=== PATIENT | female | born 1955 | race Caucasian/White ===

== ENCOUNTER 2022-05-20 12:22 | Inpatient (IN) | payer MEDICARE, OTHER, SELFPAY ==
--- NOTE | ~2022-05-20 | XR_ITS ---
EXAMINATION: XR CHEST CLINICAL INFORMATION: Cough COMPARISON: None TECHNIQUE: Frontal view of the chest was obtained. FINDINGS: Subtle opacity in the right midlung and right lower lung. Infiltrates need to be considered here. Left lung is grossly clear. The cardiac silhouette is within normal limits. No failure or effusion. XR/XR chest 1V IMPRESSION: Subtle right mid and lower lobe opacities. Infiltrates need to be considered.
--- NOTE | ~2022-05-20 | CT_ITS ---
EXAMINATION: CT ANGIOGRAM OF THE CHEST WITH AND WITHOUT CONTRAST (CT PULMONARY ANGIOGRAM FOR PE) CLINICAL INFORMATION: Reason for Exam sob with covid , copd COMPARISON: None TECHNIQUE: Prior to contrast administration, noncontrast localization images were obtained. Subsequently, multidetector volumetric imaging was performed from the thoracic inlet to below the diaphragms following the administration of 80 mL Omnipaque 350 intravenous contrast. No contrast reaction reported Sagittal, coronal, and MIP oblique sagittal reformatted images were obtained on the CT workstation, uploaded to PACS, and reviewed. This CT examination was performed using dose optimization techniques as appropriate, variously including the following: *Automated exposure control *Adjustment of mA and/or kV according to patient size (this includes techniques or standardized protocols for targeted exams where dose is matched to indication/reason for exam; i.e. extremities or head) *Use of iterative reconstruction technique Total exam dose-length product 228 mGy-cm FINDINGS: QUALITY OF STUDY/CONTRAST BOLUS: Satisfactory. PULMONARY ARTERIES: Motion degrades this study. There is no evidence for central embolism. Motion at the left base. I cannot exclude PE. Motion lingula. PE cannot be excluded. There is no bowing of the septum. There is no reflux into the liver. The thoracic inlet is within normal limits. The axillary regions are unremarkable. Partially visualized upper abdominal structures are within normal limits. Centrally no bulky mediastinal adenopathy. There is felt to be hilar adenopathy left and right. Imaging the lung garces. Right lung; There is COPD here. Right basilar atelectasis. 4 mm nodule on image 372 may represent a bronchial plug inferiorly. There is bronchial thickening at the bases. Probable bronchial plugging on image 353 of a segmental bronchus. Left lung; Again COPD. Atelectasis in the lingula and left base. Calcified Granuloma on image 238. Anterior. Again there is bronchial thickening. Difficult to evaluate due to motion at the left base. Review of the bone windows does not demonstrate evidence for bony lesion. CT/CT angio chest PE protocol IMPRESSION: Nondiagnostic left lingular and left lower lobe due to motion. I cannot rule out PE here. Otherwise no evidence of PE in the remainder of the lungs. There is significant COPD here. Bilateral basilar atelectasis. No large area of infiltrate. There is bronchial thickening throughout the lungs and several areas of bronchial plugging at the right base. Underlying bronchial lesion of course cannot be excluded. Recommend low-dose noncontrast CT in 3-6 months for continued evaluation VTE: indeterminate
[2022-05-20 12:36] VITALS: BP 119/74; PULSE 86; O2SAT 88
[2022-05-20 12:40] VITALS: BP 147/87; PULSE 93; RESP 18; TEMP 37.2; O2SAT 94; BMI 24.0
--- NOTE | 2022-05-20 12:43 | ECG_ITS ---
Test Reason : SHORTNESS OF BREATH Blood Pressure : / mmHG Vent. Rate : 085 BPM Atrial Rate : 085 BPM P-R Int : 118 ms QRS Dur : 102 ms QT Int : 366 ms P-R-T Axes : 065 072 075 degrees QTc Int : 435 ms Normal sinus rhythm Minimal voltage criteria for LVH, may be normal variant ( Guru product ) Borderline ECG No previous ECGs available Referred By: Generic ED Physician Electronically Signed By:ALLIE NO
[2022-05-20 13:09] LABS: MANUAL DIFF FLAG NO
[2022-05-20 13:12] LABS: Basophils Percent Auto 0.5 % (0-2); Eosinophils Absolute Auto 0.1 X10*3/uL (0.0-0.4); Eosinophils Percent Auto 2.3 % (0-4); Hematocrit 43.5 % (37.0-47.0); Hemoglobin 14.8 g/dl (12.0-16.0); Imm Gran Abs Auto 0.05 X10*3/uL (0.00-0.03); Imm Gran Pct Auto 0.8 % (0.0-0.4); Lymphocytes Percent Auto 16.3 % (20-40); Mean Corpuscular Hemoglobin 31.4 pg (27.0-33.0); Mean Corpuscular Volume 92.2 fL (80.0-98.0); Mean Platelet Volume 9.2 fL (9.4-12.3); Monocytes Absolute Auto 0.5 X10*3/uL (0.1-1.2); Monocytes Percent Auto 8.5 % (2-11); Neutrophils Absolute Auto 4.3 x10*3/uL (2.0-8.3); Neutrophils Percent Auto 71.6 % (45-73); Platelet Count 173 X10*3/uL (160-400); Red Blood Count 4.72 X10*6/uL (4.20-5.50); Red Cell Distribution Width 11.8 % (11.0-16.0)
[2022-05-20 13:26] LABS: COVID-19 Test Positive (Negative)
[2022-05-20 13:43] LABS: Troponin-I High Sensitivity < 3.5 ng/L (<3.5-17.0)
[2022-05-20 13:59] LABS: Alanine Aminotransferase 26 U/L (0-31); Albumin Level 4.3 g/dL (3.5-5.0); Alkaline Phosphatase 112 U/L (39-117); Anion Gap 15 (12-20); Aspartate Amino Transferase 22 U/L (5-31); Bilirubin Total 0.5 mg/dL (0.0-1.0); Blood Urea Nitrogen 12 mg/dL (9-16); Calcium 9.5 mg/dL (8.4-10.2); Carbon Dioxide 34 mmol/L (22-29); Chloride 96 mmol/L (96-108); Creatinine Clr Calc Pharmacy 63.7; Estimated Glomerular Filt Rate > 60; Glucose Random 99 mg/dL (60-115); Potassium 3.9 mmol/L (3.3-5.1); Sodium 141 mmol/L (135-145)
[2022-05-20 14:30] VITALS: BP 142/76; PULSE 92; RESP 18; TEMP 36.6; O2SAT 96
--- NOTE | 2022-05-20 17:21 | ED.SOB ---
HPI - SOB/Dyspnea General Chief Complaint: Dyspnea Stated Complaint: SOB, COVID + Time Seen by Provider: 05/20/22 17:17 Source: patient Mode of arrival: EMS Limitations: no limitations History of Present Illness HPI Narrative: Patient history of COPD not on any home oxygen came to the ER for shortness of breath saturating 88% at room air. Patient went to [facility] and for last 6 days is not feeling good came home started feeling more shortness of breath went to urgent care center with a tested positive for the COVID patient has received all the COVID vaccine including booster patient been coughing a lot mostly dry cough feels very short of breath even taking a flight of stairs no prior cardiac history no chest pain or palpitation Related Data Allergies Allergy/AdvReac Type Severity Reaction Status Date / Time No Known Allergies Allergy Verified 05/20/22 17:33 Review of Systems Review of Systems: Yes all other systems are reviewed and are negative [facility] Social History Social History Advance Directives: No Advance Directives Information Provided: No Physical Exam Vital Signs: Vital Signs: Last Vital Signs Temp 100.1 F 05/20/22 20:51 Pulse 91 05/20/22 20:51 Resp 14 05/20/22 20:51 BP 128/47 L 05/20/22 20:51 Pulse Ox 98 05/20/22 20:51 O2 Del Method 05/20/22 20:51 O2 Flow Rate 3 05/20/22 20:51 BMI result Body Mass Index 24.0 Appearance: Alert. Oriented X3. No acute distress. Eyes: No pallor or icterus ENT: Pharynx normal. Oral Mucosa moist Neck: Normal inspection. Neck supple. CVS: Normal heart rate and rhythm. Pulses normal. Respiratory: No respiratory distress. Equal air entry bilateral, bilateral prolonged expiration Abdomen: Soft and nontender. Bowel sounds are present, no mass palpable, no CVA tenderness Skin: Skin warm and dry. Normal skin color. Normal skin turgor. Extremities: No lower extremity edema. No calf tenderness Neuro: Oriented X 3. No motor deficit. No sensory deficit.No cerebellar signs , cranial nerves II-XII intact MDM - SOB/Dyspnea MDM Narrative Medical decision making narrative: Patient with COPD with COVID never been hypoxic in the past feeling more short of breath for last 2-3 days CTA negative for major emboli showed mucus plugging will admit patient for steroid treatment and supportive treatment Lab Data Attestation: I reviewed the patient's lab results. Result diagrams: 05/20/22 12:53 05/20/22 12:53 Labs: Lab Results 05/20/22 05/20/22 05/20/22 Range/Units 12:53 12:53 12:53 WBC 6.0 (4.8-10.8) X10*3/uL RBC 4.72 (4.20-5.50) X10*6/uL Hgb 14.8 (12.0-16.0) g/dl Hct 43.5 (37.0-47.0) % MCV 92.2 (80.0-98.0) fL MCH 31.4 (27.0-33.0) pg MCHC 34.0 (31.0-35.0) g/dl RDW 11.8 (11.0-16.0) % Plt Count 173 (160-400) X10*3/uL MPV 9.2 L (9.4-12.3) fL Immature Gran % (Auto) 0.8 H (0.0-0.4) % Neut % (Auto) 71.6 (45-73) % Lymph % (Auto) 16.3 L (20-40) % [place] % (Auto) 8.5 (2-11) % Eos % (Auto) 2.3 (0-4) % Baso % (Auto) 0.5 (0-2) % Lymph # (Auto) 1.0 L (1.2-4.9) X10*3/uL [place] # (Auto) 0.5 (0.1-1.2) X10*3/uL Eos # (Auto) 0.1 (0.0-0.4) X10*3/uL Baso # (Auto) 0.0 (0.0-0.2) X10*3/uL Abs Immat Gran (auto) 0.05 H (0.00-0.03) X10*3/uL Absolute Neuts (auto) 4.3 (2.0-8.3) x10*3/uL Absolute Nucleated RBC 0.000 (0.0-0.012) X10*3/uL Nucleated RBC % (auto) 0.0 (0.0-0.2) /100WBC D-Dimer High Sensitivty NG/ML Sodium 141 (135-145) mmol/L Potassium 3.9 (3.3-5.1) mmol/L Chloride 96 (96-108) mmol/L Carbon Dioxide 34 H (22-29) mmol/L Anion Gap 15 (12-20) BUN 12 (9-16) mg/dL Creatinine 0.74 (0.5-1.4) mg/dL Estim Creat Clear Calc 63.7 Estimated GFR > 60 Random Glucose 99 (60-115) mg/dL Calcium 9.5 (8.4-10.2) mg/dL Total Bilirubin 0.5 (0.0-1.0) mg/dL AST 22 (5-31) U/L ALT 26 (0-31) U/L Alkaline Phosphatase 112 (39-117) U/L Troponin I High Sens < 3.5 (<3.5-17.0) ng/L Total Protein 7.0 (6.5-8.0) g/dL Albumin 4.3 (3.5-5.0) g/dL COVID-19 (CELINA) (Negative) COVID-19 Clin Com 05/20/22 05/20/22 Range/Units 12:53 19:58 WBC (4.8-10.8) X10*3/uL RBC (4.20-5.50) X10*6/uL Hgb (12.0-16.0) g/dl Hct (37.0-47.0) % MCV (80.0-98.0) fL MCH (27.0-33.0) pg MCHC (31.0-35.0) g/dl RDW (11.0-16.0) % Plt Count (160-400) X10*3/uL MPV (9.4-12.3) fL Immature Gran % (Auto) (0.0-0.4) % Neut % (Auto) (45-73) % Lymph % (Auto) (20-40) % [place] % (Auto) (2-11) % Eos % (Auto) (0-4) % Baso % (Auto) (0-2) % Lymph # (Auto) (1.2-4.9) X10*3/uL [place] # (Auto) (0.1-1.2) X10*3/uL Eos # (Auto) (0.0-0.4) X10*3/uL Baso # (Auto) (0.0-0.2) X10*3/uL Abs Immat Gran (auto) (0.00-0.03) X10*3/uL Absolute Neuts (auto) (2.0-8.3) x10*3/uL Absolute Nucleated RBC (0.0-0.012) X10*3/uL Nucleated RBC % (auto) (0.0-0.2) /100WBC D-Dimer High Sensitivty 233 NG/ML Sodium (135-145) mmol/L Potassium (3.3-5.1) mmol/L Chloride (96-108) mmol/L Carbon Dioxide (22-29) mmol/L Anion Gap (12-20) BUN (9-16) mg/dL Creatinine (0.5-1.4) mg/dL Estim Creat Clear Calc Estimated GFR Random Glucose (60-115) mg/dL Calcium (8.4-10.2) mg/dL Total Bilirubin (0.0-1.0) mg/dL AST (5-31) U/L ALT (0-31) U/L Alkaline Phosphatase (39-117) U/L Troponin I High Sens (<3.5-17.0) ng/L Total Protein (6.5-8.0) g/dL Albumin (3.5-5.0) g/dL COVID-19 (CELINA) Positive A (Negative) COVID-19 Clin Com See Note ECG Data Attestation: I personally reviewed and interpreted this ECG as follows: Interpretation: Normal sinus rhythm 185 beats per minute LVH normal interval normal axis no acute ischemic changes Discharge Plan Discharge Clinical Impression: Acute hypoxemic respiratory failure due to COVID-19, COPD (chronic obstructive pulmonary disease) Patient Disposition: Admitted As Inpatient
[2022-05-20] MEDS: Albuterol Sulfate 2.5 MG, Albuterol/Iprat 2.5/0.5MG 3 ML 3 ML INHALE (17:55)
[2022-05-20] MEDS: dexAMETHasone sod phosphate 10 MG/ML VIAL IVPUSH (18:54)
[2022-05-20] MEDS: iohexoL 350 MG/ML 100 ML INFUS..BTL IV (19:21)
[2022-05-20 20:35] LABS: D Dimer High Sensitivity 233 NG/ML
[2022-05-20 20:51] VITALS: BP 128/47; PULSE 91; RESP 14; TEMP 37.8; O2SAT 98
--- NOTE | 2022-05-20 20:54 | PM.IMHP ---
History of Present Illness Date of Service: 05/20/22 Chief Complaint: sob 66-year-old female with a past medical history of COPD presented to the hospital today with a chief complaint of shortness of breath. Patient reports that [place] the [place], since last Saturday she has been having shortness of breath associated with cough. Occasional sputum production. Denies any fevers. Mentions that her shortness of breath has been gradually worsening not improving with her home inhalers, and worse for the past 2 days. Hence decided to come to the ER for further evaluation. Denies any chest pain or palpitations. Denies any numbness tingling or focal weakness. Denies any GI symptoms. Reports he has been COVID-19 vaccinated. Review of all other systems is negative except mentioned above ER course: Per ER team patient was noted to be saturating 88% on room air by the EMS; placed on supplemental oxygen. In the ER patient was also saturating 80% on room air; placed on supplemental oxygen with improvement in oxygenation. D-dimer was 230. CT chest was a poor study but no evidence of PE grossly. Noted to have bronchial thickening with plugging. Given nebulizations and steroids. Admitted to the hospital for further management PMFSH Pertinent family history: Reviewed Social History Advance Directives: No Advance Directives Information Provided: No Meds Allergies Allergy/AdvReac Type Severity Reaction Status Date / Time No Known Allergies Allergy Verified 05/20/22 17:33 Active Medications: Current Medications Ceftriaxone Sodium 1 gm/ (Sodium Chloride) 50 mls @ 100 mls/hr IV ONCE ONE Stop: 05/20/22 21:14 Physical Exam Vital Signs and Narrative: Vital Signs: Last Vital Signs Temp 100.1 F 05/20/22 20:51 Pulse 91 05/20/22 20:51 Resp 14 05/20/22 20:51 BP 128/47 L 05/20/22 20:51 Pulse Ox 98 05/20/22 20:51 O2 Del Method 05/20/22 20:51 O2 Flow Rate 3 05/20/22 20:51 BMI result Body Mass Index 24.0 Gen: Appears be in no acute distress. On supplemental oxygen. Speaks in full sentences. HEENT: NCAT, Moist mucosa. Pulmonary: Diminished breath sounds bilaterally CVS: Normal S1-S2 Abdomen: BS+, Soft, Nontender Extremities: Warm well perfused Neuro: Alert and awake. Results Labs CBC and Chem 7: 05/20/22 12:53 05/20/22 12:53 Labs: Laboratory Results - last 24 hr 05/20/22 05/20/22 05/20/22 12:53 12:53 12:53 MCV 92.2 MCH 31.4 MCHC 34.0 RDW 11.8 Plt Count 173 MPV 9.2 L Immature Gran % (Auto) 0.8 H Neut % (Auto) 71.6 Lymph % (Auto) 16.3 L [place] % (Auto) 8.5 Eos % (Auto) 2.3 Baso % (Auto) 0.5 Lymph # (Auto) 1.0 L [place] # (Auto) 0.5 Eos # (Auto) 0.1 Baso # (Auto) 0.0 Abs Immat Gran (auto) 0.05 H Absolute Neuts (auto) 4.3 Absolute Nucleated RBC 0.000 Nucleated RBC % (auto) 0.0 D-Dimer High Sensitivty Anion Gap 15 Estim Creat Clear Calc 63.7 Estimated GFR > 60 Random Glucose 99 Calcium 9.5 Total Bilirubin 0.5 AST 22 ALT 26 Alkaline Phosphatase 112 Total Protein 7.0 Albumin 4.3 COVID-19 (CELINA) Positive A COVID-19 Clin Com See Note 05/20/22 19:58 MCV MCH MCHC RDW Plt Count MPV Immature Gran % (Auto) Neut % (Auto) Lymph % (Auto) [place] % (Auto) Eos % (Auto) Baso % (Auto) Lymph # (Auto) [place] # (Auto) Eos # (Auto) Baso # (Auto) Abs Immat Gran (auto) Absolute Neuts (auto) Absolute Nucleated RBC Nucleated RBC % (auto) D-Dimer High Sensitivty 233 Anion Gap Estim Creat Clear Calc Estimated GFR Random Glucose Calcium Total Bilirubin AST ALT Alkaline Phosphatase Total Protein Albumin COVID-19 (CELINA) COVID-19 Clin Com Imaging Radiologist's Impressions: Impressions Chest X-Ray 05/20/22 13:19 IMPRESSION: Subtle right mid and lower lobe opacities. Infiltrates need to be considered. Chest CTA 05/20/22 19:21 IMPRESSION: Nondiagnostic left lingular and left lower lobe due to motion. I cannot rule out PE here. Otherwise no evidence of PE in the remainder of the lungs. There is significant COPD here. Bilateral basilar atelectasis. No large area of infiltrate. There is bronchial thickening throughout the lungs and several areas of bronchial plugging at the right base. Underlying bronchial lesion of course cannot be excluded. Recommend low-dose noncontrast CT in 3-6 months for continued evaluation VTE: indeterminate Assessment and Plan (1) COPD (chronic obstructive pulmonary disease): Status: Acute Plan 66-year-old female with a past medical history of COPD presented to the hospital today with a chief complaint of shortness of breath. Noted to be in COPD exacerbation. As well as COVID-19 positive. Admitted for further management. COVID-19 positive ; COPD exacerbation; Patient was saturating 88% on room air-placed on supplemental oxygen Will give the patient on Solu-Medrol IV q.i.d. Nebulizations standing and p.r.n. Patient is COVID-[address] chest was a poor study but no clear pulmonary embolism. D-dimer was only 230-age adjusted negative. Also noted to have bronchial thickening versus bronchial lesion with plugging-pulmonology consult for further recommendations. DVT prophylaxis: Lovenox Code status: Full code Quality Stroke Does the patient have a stroke diagnosis?: No VTE Prior VTE?: No VTE Risk Level:: Medical - moderate - high VTE Device Contraindication: Treatment Not Indicated VTE Drug Contraindication: N/A - Med Ordered
[2022-05-20] MEDS: cefTRIAXone sodium 1 GM in 0.9 % Sodium Chloride 50 ML IV (21:07)
[2022-05-20 21:28] LABS: Lactic Acid 0.7 mmol/L (0.5-2.0)
[2022-05-20] MEDS: Enoxaparin Sodium 40 MG/0.4 ML SYRINGE SUBCUT (21:48)
[2022-05-21] VITALS (8 sets, daily range): BP systolic 114–171; BP diastolic 43–86; PULSE 72–90; RESP 16–20; TEMP 36.6–37.1; O2SAT 92–98
[2022-05-21] MEDS: methylPREDNISolone Sod Succ 40 MG/ML VIAL IVPUSH ×4 (01:33→20:44)
[2022-05-21 04:49] LABS: MANUAL DIFF FLAG NO
[2022-05-21 04:50] LABS: Basophils Percent Auto 0.4 % (0-2); Hematocrit 42.8 % (37.0-47.0); Hemoglobin 14.6 g/dl (12.0-16.0); Imm Gran Abs Auto 0.05 X10*3/uL (0.00-0.03); Lymphocytes Absolute Auto 0.5 X10*3/uL (1.2-4.9); Mean Corpuscular HGB Conc 34.1 g/dl (31.0-35.0); Mean Corpuscular Hemoglobin 30.9 pg (27.0-33.0); Mean Corpuscular Volume 90.5 fL (80.0-98.0); Mean Platelet Volume 9.5 fL (9.4-12.3); Monocytes Absolute Auto 0.1 X10*3/uL (0.1-1.2); Neutrophils Absolute Auto 4.3 x10*3/uL (2.0-8.3); Neutrophils Percent Auto 87.6 % (45-73); Platelet Count 177 X10*3/uL (160-400); Red Blood Count 4.73 X10*6/uL (4.20-5.50); Red Cell Distribution Width 11.6 % (11.0-16.0); White Blood Count 4.9 X10*3/uL (4.8-10.8)
[2022-05-21 05:03] LABS: Anion Gap 18 (12-20); Blood Urea Nitrogen 16 mg/dL (9-16); Carbon Dioxide 28 mmol/L (22-29); Chloride 100 mmol/L (96-108); Creatinine Clr Calc Pharmacy 58.1; Estimated Glomerular Filt Rate > 60; Glucose Random 222 mg/dL (60-115); Potassium 3.9 mmol/L (3.3-5.1); Sodium 142 mmol/L (135-145)
--- NOTE | 2022-05-21 09:39 | PM.CNPUL ---
History of Present Illness History of Present Illness Consult date: 05/21/22 Chief complaint: Copd exacerbation Narrative: This is an inpatient pulmonary consultation. The patient is a 66-year-old female with a past medical history of COPD presented to the hospital today with a chief complaint of shortness of breath.? Patient reports that [place], since last Saturday she has been having shortness of breath associated with cough.? Occasional sputum production.? Denies any fevers.? Mentions that her shortness of breath has been gradually worsening not improving with her home inhalers, and worse for the past 2 days.? Hence decided to come to the ER for further evaluation.?+covid19. CTA w/o PE, maxineough, has significant emphysema and bronchitis. bibasilar congestion, likely infiltrates. On on 3L nasal cannula doing a little better. Review of Systems Constitutional: Constitutional: Reports body ache(s), Denies excessive sweating and Reports fatigue Eyes: Eyes: Denies diplopia ENT: Reports change in voice Cardiovascular: Cardiovascular: Reports chest pain and Reports dyspnea Respiratory: Respiratory: Reports chest congestion, Reports cough, Reports dyspnea and Reports wheezing Gastrointestinal: Gastrointestinal: Reports no additional gastrointestinal complaints Musculoskeletal: Musculoskeletal: Reports myalgias Neurologic: Denies confusion Psychiatric: Psychiatric: Denies confusion Endocrine: Endocrine: Denies excessive sweating and Reports fatigue Hematologic/Lymphatic: Hematologic/Lymphatic: Denies easy bleeding, Denies easy bruising and Denies lymphadenopathy Allergic/Immunologic: Allergic/Immunologic: Reports wheezing PMFSH Past Medical History Medical History (Updated 05/21/22 @ 09:49 by Fredy Tong MD) Pulmonary nodule Social History Social History Advance Directives: No Advance Directives Information Provided: No Meds Allergies Allergy/AdvReac Type Severity Reaction Status Date / Time No Known Allergies Allergy Verified 05/20/22 17:33 Active Medications: Current Medications Acetaminophen (Acetaminophen 325 Mg Tablet) 650 mg PO Q6H PRN PRN Reason: Pain, Mild (Pain Scale 1-3) Albuterol Sulfate (Albuterol Sulfate 90 Mcg 8 Gm Inhaler) 4 puff INHALE RQ4H WHILE AWAKE ABDIAZIZ Albuterol Sulfate (Albuterol Sulfate 90 Mcg 8 Gm Inhaler) 4 puff INHALE Q3H PRN PRN Reason: Shortness of Breath/Wheezing Doxycycline Hyclate (Doxycycline Hyclate 100 Mg Tablet) 100 mg PO Q12H [facility] Last Admin: 05/20/22 21:13 Dose: Not Given Enoxaparin Sodium (Enoxaparin Sodium 40 Mg/0.4 Ml Syringe) 40 mg SUBCUT Q24H [facility] Last Admin: 05/20/22 21:48 Dose: 40 mg Melatonin (Melatonin 3 Mg Tablet) 6 mg PO BEDTIME PRN PRN Reason: Insomnia Methylprednisolone Sodium Succinate (Methylprednisolone Sod Succ 40 Mg/Ml Vial) 40 mg IVPUSH Q6H [facility] Last Admin: 05/21/22 01:33 Dose: 40 mg Non-Formulary Medication (Amlodipine) 5 mg PO DAILY [facility] Non-Formulary Medication (Flovent) 220 mcg INHALE QID [facility] Senna (Sennosides 8.6 Mg Tablet) 17.2 mg PO BEDTIME PRN PRN Reason: Constipation Sodium Chloride (0.9 % Sodium Chloride Flush 3 Ml Syringe) 3 ml IVFLUSH QSHIFT [facility] Last Admin: 05/20/22 23:28 Dose: Not Given Home Medications Medication Instructions Recorded Confirmed Last Taken Type Flovent 220 mcg inhalation QID 05/21/22 05/21/22 Unknown History [place]-Chlor 12.5 mg PO 05/21/22 Unknown History Spiriva with HandiHaler 2.5 mcg inhalation 05/21/22 Unknown History amlodipine 5 mg PO DAILY 05/21/22 05/21/22 Unknown History morphine 15 mg PO BID 05/21/22 05/21/22 Unknown History oxycodone 10 mg PO QID 05/21/22 05/21/22 Unknown History Physical Exam Vital Signs: Vital Signs: Last Vital Signs Temp 100.1 F 05/20/22 20:51 Pulse 89 05/21/22 06:00 Resp 17 05/21/22 06:00 BP 133/69 05/21/22 06:00 Pulse Ox 97 05/21/22 06:00 O2 Del Method 05/21/22 06:00 O2 Flow Rate 3 05/21/22 06:00 BMI result Body Mass Index 24.0 Const: General: No confusion Orientation/consciousness: No confusion HEENT: Head: Yes normal to inspection Eyes: General: appearance normal, both eyes and all related structures Neck: Neck: Yes supple Chest: Chest palpation & inspection: normal inspection of the chest Resp: Effort & Inspection: able to speak in complete sentences Auscultation: rales, rhonchi, wheezes and diminished lung sounds Cardio: Rate: regular rate Rhythm: regular rhythm Heart sounds: S1 normal heart sound present and S2 normal heart sound present GI: Auscultation: normal bowel sounds Skin: General skin exam: no rashes or lesions noted Neuro: General: No confusion Extrem: General: No cyanosis and No edema Results Laboratory Findings CBC and BMP: 05/21/22 04:24 05/21/22 04:24 Abnormal lab findings: Abnormal Labs 05/20/22 05/20/22 05/20/22 12:53 12:53 12:53 MPV 9.2 L Immature Gran % (Auto) 0.8 H Neut % (Auto) Lymph % (Auto) 16.3 L [place] % (Auto) Lymph # (Auto) 1.0 L Abs Immat Gran (auto) 0.05 H Carbon Dioxide 34 H Random Glucose COVID-19 (CELINA) Positive A 05/21/22 05/21/22 04:24 04:24 MPV Immature Gran % (Auto) 1.0 H Neut % (Auto) 87.6 H Lymph % (Auto) 10.0 L [place] % (Auto) 1.0 L Lymph # (Auto) 0.5 L Abs Immat Gran (auto) 0.05 H Carbon Dioxide Random Glucose 222 H COVID-19 (CELINA) Assessment and Plan (1) Acute respiratory failure: Status: Acute (2) COPD (chronic obstructive pulmonary disease): Qualifiers: COPD type: COPD with acute exacerbation Qualified Code(s): J44.1 - Chronic obstructive pulmonary disease with (acute) exacerbation Status: Acute (3) COVID-19: Status: Acute (4) Bronchopneumonia: Status: Acute (5) Pulmonary nodule: Status: Acute Plan continue oxygen to keep pox>90% continue doxy continue corticosteroids Would be a good candidate for Remdesivir in view of her oxygen needs, evidence of airspace disease Will need a repeat CT chest 6-12 months to f/u pulmonary nodule and other changes nebs QID Procedures Date of Service Date of Service: 05/21/22
[2022-05-21] MEDS: 0.9 % Sodium Chloride Flush 3 ML SYRINGE IVFLUSH ×2 (09:59→20:45)
--- NOTE | 2022-05-21 11:16 | MHC.CM.PN ---
Patient is Covid positive; CM spoke with /HCP/Jessie @ [phone] addressed IMM with him (original to be mailed certified letter to and a copy to be placed on the chart). Patient lives in a house with her and she and he typically walk 8 miles/day at the [employer]. Home no services is the goal and CM has initiated and will follow for dc planning. Per , PCP is Dr. Strong and Patient is fully Covid vaccinated.
[2022-05-21] MEDS: Albuterol Sulfate 90 MCG 8 GM INHALER 4 PUFF INHALE ×3 (11:47→20:35)
--- NOTE | 2022-05-21 13:27 | PC.NURSE ---
Patient noted to desat down into high 80s with exertion and had increased WOB noted. Patient states I feel like my work of breathing is less with the oxygen on. Patietn 92-95% on 1 liter NC. Denies chest pain
--- NOTE | 2022-05-21 13:28 | P.PNIM_ITS ---
Subjective Subjective Date of Service: 05/21/22 Interval History: complaining of shortness of breath and cough denies fever chills no other acute issues since admission patient not on home oxygen, currently on 2 L of oxygen finger oximetry 94%. Review of Systems [employer] no headache no dizziness CVS no chest pain, no palpitation GI no nausea, no vomiting Review of Systems: Yes all other systems are reviewed and are negative Physical Exam Vital Signs: Vital Signs: Last Vital Signs Temp 97.8 F 05/21/22 10:08 Pulse 88 05/21/22 13:04 Resp 16 05/21/22 13:04 BP 131/76 05/21/22 13:04 Pulse Ox 92 05/21/22 13:04 O2 Del Method 05/21/22 13:04 O2 Flow Rate 1 05/21/22 13:04 BMI result Body Mass Index 24.0 Const: Other: General awake alert, no acute distress. Neck no JVD. CVS regular rate rhythm, Respiratory lungs diminished breath sound with bilateral rhonchi, no respiratory distress, Gastrointestinal abdomen soft, nontender, bowel sounds audible, no guarding , no rigidity. Extremities no edema. Neuro nonfocal Skin no rash psych appropriate affect Objective Data Active Medications Acetaminophen (Acetaminophen 325 Mg Tablet) 650 mg PO Q6H PRN PRN Reason: Pain, Mild (Pain Scale 1-3) Albuterol Sulfate (Albuterol Sulfate 90 Mcg 8 Gm Inhaler) 4 puff INHALE RQ4H WHILE AWAKE [facility] Last Admin: 05/21/22 11:47 Dose: 4 puff Documented By: BRADLEY Albuterol Sulfate (Albuterol Sulfate 90 Mcg 8 Gm Inhaler) 4 puff INHALE Q3H PRN PRN Reason: Shortness of Breath/Wheezing Amlodipine Besylate (Amlodipine Besylate 5 Mg Tablet) 5 mg PO DAILY [facility] Doxycycline Hyclate (Doxycycline Hyclate 100 Mg Tablet) 100 mg PO Q12H [facility] Last Admin: 05/21/22 09:59 Dose: 100 mg Documented By: REGGIE Enoxaparin Sodium (Enoxaparin Sodium 40 Mg/0.4 Ml Syringe) 40 mg SUBCUT Q24H [facility] Last Admin: 05/20/22 21:48 Dose: 40 mg Documented By: KACIE Fluticasone Propionate (Fluticasone Propionate 250 Mcg Blst.W.Dev) 220 puff INHALE RQID [facility] Melatonin (Melatonin 3 Mg Tablet) 6 mg PO BEDTIME PRN PRN Reason: Insomnia Methylprednisolone Sodium Succinate (Methylprednisolone Sod Succ 40 Mg/Ml Vial) 40 mg IVPUSH Q6H [facility] Last Admin: 05/21/22 09:59 Dose: 40 mg Documented By: REGGIE Senna (Sennosides 8.6 Mg Tablet) 17.2 mg PO BEDTIME PRN PRN Reason: Constipation Sodium Chloride (0.9 % Sodium Chloride Flush 3 Ml Syringe) 3 ml IVFLUSH QSHIFT [facility] Last Admin: 05/21/22 09:59 Dose: 3 ml Documented By: REGGIE Labs CBC & Chem 7: 05/21/22 04:24 05/21/22 04:24 Labs: Laboratory Results - last 24 hr 05/20/22 05/20/22 05/20/22 12:53 19:58 21:08 MCV MCH MCHC RDW Plt Count MPV Immature Gran % (Auto) Neut % (Auto) Lymph % (Auto) [place] % (Auto) Eos % (Auto) Baso % (Auto) Lymph # (Auto) [place] # (Auto) Eos # (Auto) Baso # (Auto) Abs Immat Gran (auto) Absolute Neuts (auto) Absolute Nucleated RBC Nucleated RBC % (auto) D-Dimer High Sensitivty 233 Anion Gap 15 Estim Creat Clear Calc 63.7 Estimated GFR > 60 Random Glucose 99 Lactic Acid 0.7 Calcium 9.5 Total Bilirubin 0.5 AST 22 ALT 26 Alkaline Phosphatase 112 Total Protein 7.0 Albumin 4.3 05/21/22 05/21/22 04:24 04:24 MCV 90.5 MCH 30.9 MCHC 34.1 RDW 11.6 Plt Count 177 MPV 9.5 Immature Gran % (Auto) 1.0 H Neut % (Auto) 87.6 H Lymph % (Auto) 10.0 L [place] % (Auto) 1.0 L Eos % (Auto) 0.0 Baso % (Auto) 0.4 Lymph # (Auto) 0.5 L [place] # (Auto) 0.1 Eos # (Auto) 0.0 Baso # (Auto) 0.0 Abs Immat Gran (auto) 0.05 H Absolute Neuts (auto) 4.3 Absolute Nucleated RBC 0.000 Nucleated RBC % (auto) 0.0 D-Dimer High Sensitivty Anion Gap 18 Estim Creat Clear Calc 58.1 Estimated GFR > 60 Random Glucose 222 H Lactic Acid Calcium 9.0 Total Bilirubin AST ALT Alkaline Phosphatase Total Protein Albumin Assessment and Plan (1) Pulmonary nodule: Status: Acute (2) Acute respiratory failure: Status: Acute (3) Bronchopneumonia: Status: Acute (4) COVID-19: Status: Acute (5) COPD (chronic obstructive pulmonary disease): Status: Acute Plan 66-year-old female with a past medical history of COPD presented to the hospital today with a chief complaint of shortness of breath.? Noted to be in COPD exacerbation.? As well as COVID-19 positive.? Admitted for further management.? Acute hypoxic respiratory failure due to COVID-19 infection, bronchopneumonia and acute COPD exacerbation; presented with finger oximetry of 88% on room air- currently on 2 L of oxygen finger oximetry 94% persistent shortness of breath and cough will continue IV Solu Medrol, doxycycline and updraft treatments scheduled and as needed, and add cough medication for COVID-19 vaccinated CTA poor study but showed no clear pulmonary embolism, D-dimer 230- likely due to COVID patient seen by pulmonology they agree with oxygen steroids and updraft, and recommend repeat CT chest in 6-12 months for follow-up on pulmonary nodule continue home inhalers Flovent will place on remdesivir, await ID input hypertension continue amlodipine hyperglycemia due to steroids does not have history of diabetes follow blood sugar DVT prophylaxis:? Lovenox Code status:? Full code patient need continued inpatient hospitalization due to hypoxic respiratory failure related to COVID-19 infection and COPD exacerbation Quality Stroke Does the patient have a stroke diagnosis?: No VTE Prior VTE?: No VTE Risk Level:: Medical - moderate - high VTE Device Contraindication: Treatment Not Indicated VTE Drug Contraindication: N/A - Med Ordered
[2022-05-21] MEDS: Remdesivir 200 MG in 0.9 % Sodium Chloride 210 ML 105 MG IV (15:16)
--- NOTE | 2022-05-21 15:19 | PC.NURSE ---
patient medicated per order float nurse
[2022-05-21] MEDS: Enoxaparin Sodium 40 MG/0.4 ML SYRINGE SUBCUT (20:44)
--- NOTE | 2022-05-21 22:50 | P.CNID_ITS ---
History of Present Illness Data of Consult Service Date: 05/21/22 Requesting physician: Alphonso Grey Primary Care Provider: Unknown Physician HPI Reason for consult: COVID She presents with shortness of breath and cough for six days. She was positive for COVID at Urgent Care. She has COPD She was on a cruise. She is hypoxic to 88% on room air. Review of Systems Review of Systems: Yes all other systems are reviewed and are negative PMFSH Past Medical History Medical History Pulmonary nodule Family History Family history: reviewed and not pertinent Social History Social History service: No Current occupational status: retired [employer] Allergies Allergy/AdvReac Type Severity Reaction Status Date / Time No Known Allergies Allergy Verified 05/20/22 17:33 Active Medications: Current Medications Acetaminophen (Acetaminophen 325 Mg Tablet) 650 mg PO Q6H PRN PRN Reason: Pain, Mild (Pain Scale 1-3) Albuterol Sulfate (Albuterol Sulfate 90 Mcg 8 Gm Inhaler) 4 puff INHALE RQ4H WHILE AWAKE [facility] Last Admin: 05/21/22 20:35 Dose: 4 puff Albuterol Sulfate (Albuterol Sulfate 90 Mcg 8 Gm Inhaler) 4 puff INHALE Q3H PRN PRN Reason: Shortness of Breath/Wheezing Amlodipine Besylate (Amlodipine Besylate 5 Mg Tablet) 5 mg PO DAILY [facility] Amlodipine Besylate (Amlodipine Besylate 5 Mg Tablet) 5 mg PO DAILY [facility]; Protocol Doxycycline Hyclate (Doxycycline Hyclate 100 Mg Tablet) 100 mg PO Q12H [facility] Last Admin: 05/21/22 20:44 Dose: 100 mg Enoxaparin Sodium (Enoxaparin Sodium 40 Mg/0.4 Ml Syringe) 40 mg SUBCUT Q24H [facility] Last Admin: 05/21/22 20:44 Dose: 40 mg Fluticasone Propionate (Fluticasone Propionate 250 Mcg Blst.W.Dev) 220 puff INHALE RQID [facility] Last Admin: 05/21/22 20:36 Dose: Not Given Hydrochlorothiazide (Hydrochlorothiazide 12.5 Mg Tablet) 12.5 mg PO DAILY [facility]; Protocol Remdesivir 100 mg/ Sodium (Chloride) 230 mls @ 115 mls/hr IV Q24H [facility] Stop: 05/25/22 15:59 Melatonin (Melatonin 3 Mg Tablet) 6 mg PO BEDTIME PRN PRN Reason: Insomnia Methylprednisolone Sodium Succinate (Methylprednisolone Sod Succ 40 Mg/Ml Vial) 40 mg IVPUSH Q6H [facility] Last Admin: 05/21/22 20:44 Dose: 40 mg Morphine Sulfate (Morphine Sulfate Er 15 Mg Tablet.Er) 15 mg PO Q12H [facility] Oxycodone HCl (Oxycodone Hcl Immed Release 5 Mg Tablet) 10 mg PO QID PRN PRN Reason: Pain, Moderate Senna (Sennosides 8.6 Mg Tablet) 17.2 mg PO BEDTIME PRN PRN Reason: Constipation Sodium Chloride (0.9 % Sodium Chloride Flush 3 Ml Syringe) 3 ml IVFLUSH QSHIFT [facility] Last Admin: 05/21/22 20:45 Dose: 3 ml Tiotropium [place] (Tiotropium [place] 18 Mcg Cap.W.Dev) 1 puff INHALE DAILY [facility] Home Medications Medication Instructions Recorded Confirmed Last Taken Type amlodipine 5 mg tablet 5 mg PO DAILY 05/21/22 05/21/22 Unknown History fluticasone propionate 220 2 puff inhalation BID 05/21/22 05/21/22 Unknown History mcg/actuation HFA aerosol inhaler hydrochlorothiazide 12.5 mg tablet 12.5 mg PO DAILY 05/21/22 05/21/22 Unknown History morphine 15 mg tablet,extended 15 mg PO Q12H 05/21/22 05/21/22 Unknown History release oxycodone 10 mg tablet 10 mg PO QID PRN Pain, Moderate 05/21/22 05/21/22 Unknown History tiotropium bromide 18 mcg capsule 1 cap inhalation DAILY 05/21/22 05/21/22 Unknown History with inhalation device (Spiriva with HandiHaler) Physical Exam Vital Signs: Vital Signs: Last Vital Signs Temp 98.7 F 05/21/22 20:01 Pulse 88 05/21/22 20:01 Resp 18 05/21/22 20:01 BP 171/86 H 05/21/22 20:01 Pulse Ox 93 05/21/22 20:01 O2 Del Method 05/21/22 20:01 O2 Flow Rate 2 05/21/22 20:01 BMI result Body Mass Index 24.0 Const: General: cooperative HEENT: Head: Yes normal to inspection Face and sinus: Yes normal facial exam Mouth: Normal oral and palatal mucosa present Teeth and gingiva: dentition normal Eyes: General: appearance normal, both eyes and all related structures Pupils: Equal, round and reactive pupils present Resp: Effort & Inspection: normal respiratory effort Cardio: Rate: regular rate Rhythm: regular rhythm GI: Palpation (GI): nontender : General: Yes no CVA tenderness Back/Spine/Pelvis: Back: no CVA tenderness Skin: General skin exam: no rashes or lesions noted Neuro: General: moves all extremities Cranial nerves: Yes Equal, round and reactive pupils present Extrem: General: Yes normal to inspection Psych: Appearance: grossly normal Results Labs CBC & Chem 7: 05/21/22 04:24 05/21/22 04:24 Labs: Short CBC 05/21/22 Range/Units 04:24 WBC 4.9 (4.8-10.8) X10*3/uL Hgb 14.6 (12.0-16.0) g/dl Hct 42.8 (37.0-47.0) % Plt Count 177 (160-400) X10*3/uL BMP 05/21/22 04:24 Sodium 142 Potassium 3.9 Chloride 100 Carbon Dioxide 28 BUN 16 Creatinine 0.81 Calcium 9.0 Assessment and Plan (1) COVID-19: Status: Acute She has had COVID 6 days or more. She has tested positive previously within last week reportedly at Urgent Care. Remdesivir data is good for severe disease but patient at end of benefit ( almost a week) She may have bacterial bronchiectasis as well. (2) COPD (chronic obstructive pulmonary disease): Qualifiers: COPD type: COPD with acute exacerbation Qualified Code(s): J44.1 - Chronic obstructive pulmonary disease with (acute) exacerbation Status: Acute (3) Bronchopneumonia: Status: Acute Plan Would continue steroids Continue Doxycycline 100 mg bid for 7 days.
[2022-05-21] MEDS: oxyCODONE HCl Immed Release 5 MG TABLET 10 MG PO (22:54)
[2022-05-21] MEDS: Melatonin 3 MG TABLET 6 MG PO (22:54)
[2022-05-21] MEDS: Morphine Sulfate ER 15 MG TABLET.ER PO (22:54)
[2022-05-22] VITALS (9 sets, daily range): BP systolic 121–156; BP diastolic 61–79; PULSE 62–94; RESP 17–20; TEMP 36.3–37.2; O2SAT 93–97; BMI 24.0
[2022-05-22] MEDS: methylPREDNISolone Sod Succ 40 MG/ML VIAL IVPUSH ×4 (03:53→21:24)
[2022-05-22] MEDS: Albuterol Sulfate 90 MCG 8 GM INHALER 4 PUFF INHALE ×4 (07:39→20:44)
[2022-05-22] MEDS: 0.9 % Sodium Chloride Flush 3 ML SYRINGE IVFLUSH ×3 (09:07→21:25)
[2022-05-22] MEDS: Morphine Sulfate ER 15 MG TABLET.ER PO ×2 (09:08→21:24)
[2022-05-22] MEDS: oxyCODONE HCl Immed Release 5 MG TABLET 10 MG PO ×3 (09:08→21:24)
[2022-05-22] MEDS: hydroCHLOROthiazide 12.5 MG TABLET PO (09:08)
--- NOTE | 2022-05-22 13:53 | P.PNIM_ITS ---
Subjective Subjective Date of Service: 05/22/22 Interval History: feeling better this morning, less shortness of breath, persistent cough, no fevers , no chills, tolerating diet no nausea, no vomiting, no diarrhea no other acute events overnight. Review of Systems [employer] no headache no dizziness CVS no chest pain, no palpitation Review of Systems: Yes all other systems are reviewed and are negative Physical Exam Vital Signs: Vital Signs: Last Vital Signs Temp 97.4 F 05/22/22 11:29 Pulse 85 05/22/22 11:29 Resp 19 05/22/22 11:29 BP 137/64 05/22/22 11:29 Pulse Ox 93 05/22/22 11:29 O2 Del Method 05/22/22 11:29 O2 Flow Rate 2 05/22/22 11:29 BMI result Body Mass Index 24.0 Const: Other: General? awake rebekah rt, no acute distr ess.? Neck? no JVD . CVS? regular rat e rhythm, Respirat ory lungs? diminis hed breath sound w ith bilateral whe praveen, no respirator y distress, Gastro intestinal abdomen soft, nontender, bowel sounds audib le, no guarding , no rigidity. Extre mities no edema. N euro nonfocal Skin no rash psych jana ropriate affect Objective Data Active Medications Acetaminophen (Acetaminophen 325 Mg Tablet) 650 mg PO Q6H PRN PRN Reason: Pain, Mild (Pain Scale 1-3) Albuterol Sulfate (Albuterol Sulfate 90 Mcg 8 Gm Inhaler) 4 puff INHALE RQ4H WHILE AWAKE [facility] Last Admin: 05/22/22 11:07 Dose: 4 puff Documented By: BRADLEY Albuterol Sulfate (Albuterol Sulfate 90 Mcg 8 Gm Inhaler) 4 puff INHALE Q3H PRN PRN Reason: Shortness of Breath/Wheezing Amlodipine Besylate (Amlodipine Besylate 5 Mg Tablet) 5 mg PO DAILY [facility]; Protocol Last Admin: 05/22/22 09:09 Dose: Not Given Documented By: CHUCK Non-Admin Reason: Duplicate Order Doxycycline Hyclate (Doxycycline Hyclate 100 Mg Tablet) 100 mg PO Q12H [facility] Last Admin: 05/22/22 09:08 Dose: 100 mg Documented By: CHUCK Enoxaparin Sodium (Enoxaparin Sodium 40 Mg/0.4 Ml Syringe) 40 mg SUBCUT Q24H [facility] Last Admin: 05/21/22 20:44 Dose: 40 mg Documented By: CHARLY Fluticasone Propionate (Fluticasone Propionate 250 Mcg Blst.W.Dev) 220 puff INHALE RQID [facility] Last Admin: 05/22/22 11:10 Dose: Not Given Documented By: BRADLEY Non-Admin Reason: med bid not qid Hydrochlorothiazide (Hydrochlorothiazide 12.5 Mg Tablet) 12.5 mg PO DAILY [facility]; Protocol Last Admin: 05/22/22 09:08 Dose: 12.5 mg Documented By: CHUCK Remdesivir 100 mg/ Sodium (Chloride) 230 mls @ 115 mls/hr IV Q24H [facility] Stop: 05/25/22 15:59 Melatonin (Melatonin 3 Mg Tablet) 6 mg PO BEDTIME PRN PRN Reason: Insomnia Last Admin: 05/21/22 22:54 Dose: 6 mg Documented By: CHARLY Methylprednisolone Sodium Succinate (Methylprednisolone Sod Succ 40 Mg/Ml Vial) 40 mg IVPUSH Q6H [facility] Last Admin: 05/22/22 09:08 Dose: 40 mg Documented By: CHUCK Morphine Sulfate (Morphine Sulfate Er 15 Mg Tablet.Er) 15 mg PO Q12H [facility] Last Admin: 05/22/22 09:08 Dose: 15 mg Documented By: CHUCK Oxycodone HCl (Oxycodone Hcl Immed Release 5 Mg Tablet) 10 mg PO QID PRN PRN Reason: Pain, Moderate Last Admin: 05/22/22 09:08 Dose: 10 mg Documented By: CHUCK Senna (Sennosides 8.6 Mg Tablet) 17.2 mg PO BEDTIME PRN PRN Reason: Constipation Sodium Chloride (0.9 % Sodium Chloride Flush 3 Ml Syringe) 3 ml IVFLUSH QSHIFT [facility] Last Admin: 05/22/22 09:07 Dose: 3 ml Documented By: CHUCK Tiotropium [place] (Tiotropium [place] 18 Mcg Cap.W.Dev) 1 puff INHALE DAILY [facility] Last Admin: 05/22/22 07:40 Dose: Not Given Documented By: BRADLEY Non-Admin Reason: Med Not Available Labs CBC & Chem 7: 05/21/22 04:24 05/21/22 04:24 Microbiology Microbiology Results: Microbiology 05/20/22 21:08 Blood Culture - Preliminary Blood - Venous No growth after 24 hours. 05/20/22 21:08 Blood Culture - Preliminary Blood - Venous No growth after 24 hours. Assessment and Plan (1) Pulmonary nodule: Status: Acute (2) Acute respiratory failure: Status: Acute (3) Bronchopneumonia: Status: Acute (4) COVID-19: Status: Acute (5) COPD (chronic obstructive pulmonary disease): Status: Acute Plan 66-year-old female with a past medical history of COPD presented to the hospital today with a chief complaint of shortness of breath.? Noted to be in COPD exacerbation.? As well as COVID-19 positive.? Admitted for further management.? Acute hypoxic respiratory failure due to COVID-19 infection, bronchopneumonia and acute COPD exacerbation; presented with finger oximetry of 88% on room air- currently on 2 L of oxygen finger oximetry 93% shortness of breath and cough improving continue IV Solu Medrol, doxycycline and updraft treatments scheduled and as needed, continue cough medication COVID-19 vaccinated CTA poor study but showed no clear pulmonary embolism, D-dimer 230- likely due to COVID patient seen by pulmonology they agree with oxygen steroids and updraft, and recommend repeat CT chest in 6-12 months for follow-up on pulmonary nodule continue home inhalers Flovent seen by ID she agree with antibiotic and steroids , since COVID present for 6 days or more no significant benefit from remdesivir therefore will DC remdesivir hypertension continue amlodipine BP stable hyperglycemia due to steroids does not have history of diabetes follow blood sugar DVT prophylaxis:? Lovenox Code status:? Full code patient need continued inpatient hospitalization due to hypoxic respiratory failure related to COVID-19 infection and COPD exacerbation. Quality Stroke Does the patient have a stroke diagnosis?: No VTE Prior VTE?: No VTE Risk Level:: Medical - moderate - high VTE Device Contraindication: Treatment Not Indicated VTE Drug Contraindication: N/A - Med Ordered
[2022-05-22] MEDS: guaiFENesin DM 100/10/5 ML 5 ML SYRUP 10 ML PO ×2 (14:27→21:24)
[2022-05-22] MEDS: Acetaminophen 325 MG TABLET 650 MG PO (14:34)
[2022-05-22] MEDS: Enoxaparin Sodium 40 MG/0.4 ML SYRINGE SUBCUT (21:24)
[2022-05-22] MEDS: Melatonin 3 MG TABLET 6 MG PO (21:25)
[2022-05-23] VITALS: BP 135/71; PULSE 84; RESP 20; TEMP 36.8; O2SAT 93
[2022-05-23 04:00] VITALS: BP 133/69; PULSE 67; RESP 20; TEMP 37.1; O2SAT 93
[2022-05-23] MEDS: methylPREDNISolone Sod Succ 40 MG/ML VIAL IVPUSH (05:49)
[2022-05-23] MEDS: Albuterol Sulfate 90 MCG 8 GM INHALER 4 PUFF INHALE ×2 (07:36→11:23)
[2022-05-23 07:39] VITALS: PULSE 87; RESP 18; O2SAT 96
[2022-05-23 07:54] VITALS: BP 146/89; PULSE 82; RESP 20; TEMP 35.6; O2SAT 93
[2022-05-23] MEDS: oxyCODONE HCl Immed Release 5 MG TABLET 10 MG PO (08:27)
[2022-05-23] MEDS: hydroCHLOROthiazide 12.5 MG TABLET PO (08:27)
[2022-05-23] MEDS: amLODIPine Besylate 5 MG TABLET PO (08:27)
[2022-05-23] MEDS: Morphine Sulfate ER 15 MG TABLET.ER PO (08:27)
[2022-05-23] MEDS: guaiFENesin DM 100/10/5 ML 5 ML SYRUP 10 ML PO (08:28)
[2022-05-23] MEDS: 0.9 % Sodium Chloride Flush 3 ML SYRINGE IVFLUSH (08:28)
--- NOTE | 2022-05-23 09:49 | MHC.CM.PN ---
Per MD rounds yesterday, Plan to wean oxygen. She is weaned to 1LO2 via [place]. DP home no services. Patient will arrange for transportation.
[2022-05-23] MEDS: predniSONE 20 MG TABLET 40 MG PO (09:53)
[2022-05-23 11:23] VITALS: PULSE 88; RESP 18; O2SAT 97
[2022-05-23 11:47] VITALS: BP 157/77; PULSE 89; RESP 18; TEMP 36.5; O2SAT 91
--- NOTE | 2022-05-23 12:12 | MHC.CM.PN ---
IMMFemale 76 DX COPD exacerbation. Patient is discharged to home today, no services ordered. She has arranged for transportation home.
--- NOTE | 2022-05-23 12:38 | P.DS_ITS ---
DS: Providers Provider Date of Service: 05/23/22 Date of admission: 05/20/22 20:51 Primary care physician: Unknown Physician Consults: 05/20/22 20:51 Consult to Infectious Diseases Routine Consulting Provider: Karen Bone Reason for consultation: covid positive Consult to Pulmonology Routine Consulting Provider: Mary Ellen Posey Reason for consultation: COPD; Bronchial plugging; ?bronchial lesion; ?bronchoscopy; COVID positive DS: Diagnosis Discharge Diagnosis (1) Pulmonary nodule: Status: Acute (2) Acute respiratory failure: Status: Acute (3) Bronchopneumonia: Status: Acute (4) COVID-19: Status: Acute (5) COPD (chronic obstructive pulmonary disease): Status: Acute DS: Summary Hospital Course Hospital Course: Date of Service: 05/20/22 Chief Complaint: sob 66-year-old female with a past medical history of COPD presented to the hospital today with a chief complaint of shortness of breath.? Patient reports that she was in the cruise recently, since last Saturday she has been having shortness of breath associated with cough.? Occasional sputum production.? Denies any fevers.? Mentions that her shortness of breath has been gradually worsening not improving with her home inhalers, and worse for the past 2 days.? Hence decided to come to the ER for further evaluation.? Denies any chest pain or palpitations.? Denies any numbness tingling or focal weakness.? Denies any GI symptoms.? Reports he has been COVID-19 vaccinated.? Review of all other systems is negative except mentioned above ER course: Per ER team patient was noted to be saturating 88% on room air by the EMS; placed on supplemental oxygen.? In the ER patient was also saturating 80% on room air; placed on supplemental oxygen with improvement in oxygenation.? D- dimer was 230.? CT chest was a poor study but no evidence of PE grossly.? Noted to have bronchial thickening with plugging.? Given nebulizations and steroids.? Admitted to the hospital for further management hospital course 66-year-old female with a past medical history of COPD presented to the hospital with a chief complaint of shortness of breath,noted to be in COPD exacerbation,as well as COVID-19 positive.? Admitted for further management.? Acute hypoxic respiratory failure due to COVID-19 infection, bronchopneumonia and acute COPD exacerbation,presented with finger oximetry of 88% on room air- placed on 2 L of oxygen finger oximetry improved to 93% patient treated with IV Solu Medrol, doxycycline and updraft treatments scheduled and as needed, patient responded well to above treatment was evaluated by pulmonology as well as Infectious Disease since patient presented with 6 days of COVID infection id did not recommend? remdesivir, currently patient finger oximetry is 93 94% on room air therefore she is being discharged home on prednisone 20 mg daily for 5 more days as well as doxycycline to finish a total 7 day course of antibiotic patient has been recommended to resume home inhalers she is recommended repeat CT chest in 3-6 months due to multiple pulmonary abnormalities. hypertension continue amlodipine BP stable hyperglycemia due to steroids does not have history of diabetes follow blood sugar Time Spent with Patient Time attestation: Total time spent providing and/or coordinating discharge services: Discharge coordination time: Greater than 30 minutes Quality: Safe Use of Opioids Does Pt have an Active Cancer Diagnosis on the Problem List?: No Quality: Stroke Does the patient have a stroke diagnosis?: No Physical Exam Vital Signs: Vital Signs: Last Vital Signs Temp 97.7 F 05/23/22 11:47 Pulse 89 05/23/22 11:47 Resp 18 05/23/22 11:47 BP 157/77 H 05/23/22 11:47 Pulse Ox 91 L 05/23/22 11:47 O2 Del Method 05/23/22 11:47 O2 Flow Rate 1 05/23/22 07:54 BMI result Body Mass Index 24.0 Const: Other: General? awake alert, no acute distress.? Neck? no JVD. CVS? regular rate rhythm, Respiratory lungs? good air entry no rhonchi, no respiratory distress, few dry basilar crackles with Gastrointestinal abdomen soft, nontender, bowel sounds audible, no guarding , no rigidity. Extremities no edema. Neuro nonfocal Skin no rash psych appropriate affect DS: Data Data Completed and Pending Labs on day of discharge: Preliminary micro results at discharge 05/20/22 21:08 Blood Culture - Preliminary Blood - Venous No growth after 48 hours. 05/20/22 21:08 Blood Culture - Preliminary Blood - Venous No growth after 48 hours. Discharge Plan Discharge Patient Disposition: Home, Self-Care Discharge Diagnosis: acute hypoxic respiratory failure COVID-19 infection bronchopneumonia COPD exacerbation Referrals: Physician,Unknown J [Primary Care Provider] - 1 Week Discharge Medications: New dextromethorphan-guaifenesin 10-100 mg/5 mL Syrup 10 ml PO TID Qty: 237 0RF doxycycline hyclate 100 mg Tablet 100 mg PO Q12H Qty: 8 0RF prednisone 20 mg tablet 20 mg PO DAILY Qty: 5 0RF albuterol sulfate 90 mcg/actuation HFA aerosol inhaler 2 puff inhalation Q6H PRN (Reason: shortness of breath or wheezing) Qty: 8.5 0RF Continued amlodipine 5 mg Tablet 5 mg PO DAILY morphine 15 mg Tablet Extended Release 15 mg PO Q12H fluticasone propionate 220 mcg/actuation Hfa Aerosol Inhaler 2 puff INHALATION BID Spiriva with HandiHaler 18 mcg Capsule, W/Inhalation Device 1 cap INHALATION DAILY Rx Instructions: puncture 1 cap using device; one dose = 2 inhalations hydrochlorothiazide 12.5 mg Tablet 12.5 mg PO DAILY oxycodone 10 mg Tablet 10 mg PO QID PRN (Reason: Pain, Moderate) Discharge Orders: Discharge Order (Routine); Ordered 05/23/22 Ordered By: Alphonso Grey Diet: Advance to usual diet Activity on Discharge: As tolerated Stand Alone Forms: Patient Portal Discharge page Care Plan Goals: COVID-19 infection improved/ for bronchopneumonia take by mouth antibiotic for 4 days, take steroids as directed, repeat CT chest in 3 to 6 months for follow-up on CT chest findings Health Concerns: noted to have elevated blood sugars follow-up with primary care physician Plan of Treatment: outpatient follow-up with primary care physician call for appointment Assessment: as above
--- NOTE | 2022-05-23 14:01 | PC.NURSE ---
Alert and oriented. Medicated per OCT. VSS, afebrile, no acute resp. distress noted. Weaned off o2, sat 92-94% RA. New order to discharge patient home. Went over discharge instructions, medication administrations with patient, verbalized understanding back. Staff transported to the [facility] via w/c, left via car with her .
== END 2022-05-23 13:15 | disposition home or self-care (01) | DRG 177 ==
LOC: HO.ED 17:33 → HO.EDOVER 20:58 → HO.IMC 05-21 16:52
PROVIDERS: Admitting Provider Hospitalist; Emergency Provider Internal Medicine; Visit Provider Hospitalist
DX: U07.1 COVID-19 (principal); J18.0 Bronchopneumonia, unspecified organism; J96.01 Acute respiratory failure with hypoxia; J44.1 Chronic obstructive pulmonary disease with (acute) exacerbation; J98.09 Other diseases of bronchus, not elsewhere classified; I10 Essential (primary) hypertension; R73.9 Hyperglycemia, unspecified; T38.0X5A Adverse effect of glucocorticoids and synthetic analogues, initial encounter; R91.1 Solitary pulmonary nodule; Z79.51 Long term (current) use of inhaled steroids; Z79.52 Long term (current) use of systemic steroids; Z79.899 Other long term (current) drug therapy
CPT/HCPCS: 36415; 71045; 71275; 80048; 80053; 83605; 84484; 85025; 85379; 87040; 87635; 93005; 96374; 99285; J0248; J0696; J1100; J1650; J2920; Q9967

== ENCOUNTER 2023-11-11 09:47 | Inpatient (IN) | payer MEDICARE, OTHER, SELFPAY ==
[2023-11-11] VITALS (10 sets, daily range): BP systolic 113–176; BP diastolic 63–100; PULSE 98–108; RESP 16–24; TEMP 36.6–36.8; O2SAT 92–94; BMI 26.1; BMI 27.2
--- NOTE | ~2023-11-11 | XR_ITS ---
EXAMINATION: XR CHEST CLINICAL INFORMATION: Dyspnea COMPARISON: 05/20/2022 TECHNIQUE: Frontal view of the chest was obtained. FINDINGS: Lungs are chronically hyperexpanded in this patient with emphysematous disease. Bronchial gant appear to be thickened. A few linear opacities of atelectasis or scarring are present in each lung. No consolidation or pleural effusion. Cardiac silhouette is normal in size. The hilar contours are normal. There is atherosclerotic calcification of the aorta. No acute osseous abnormality. XR/XR chest 1V IMPRESSION: * Chronic emphysematous lung disease. * There are a few scattered linear opacities of atelectasis or scarring in each lung. * No radiographic evidence of pneumonia.
--- NOTE | 2023-11-11 09:50 | ED.SOB ---
HPI - SOB/Dyspnea General Chief Complaint: Dyspnea Stated Complaint: SOB Time Seen by Provider: 11/11/23 09:49 Source: patient and old records reviewed Mode of arrival: EMS Limitations: no limitations History of Present Illness HPI Narrative: 68 yo female with PMH of HTN, bronchopneumonia, COPD not on home O2 here with c/o having cough, feeling weak, wheezing increased shortness of breath not responding to home INH. She just returned from a cruise around [facility] on . Her checked the cruise forums and there are a lot of people ill with URI. She is vaccinated against COVID x 4, flu, pneumonia, RSV. She has not had a fever, has no chest pain. Was at PCP office today sats 77% on RA given duoneb enroute and 4L NC up to 95%. MD elicited complaint: shortness of breath and cough Pertinent past history: COPD Onset (ago): day(s) (3) Context: recent travel Timing: constant Severity: moderate Exacerbating factors: exertion and coughing Relieving factors: rest and bronchodilators Known history of: COPD Associated symptoms: cough, wheezing and sputum production Treatment prior to arrival: oxygen and bronchodilator Related Data Home Medications Medication Instructions Recorded Confirmed amlodipine 5 mg tablet 5 mg PO DAILY 05/21/22 05/21/22 fluticasone propionate 220 2 puff inhalation BID 05/21/22 05/21/22 mcg/actuation HFA aerosol inhaler hydrochlorothiazide 12.5 mg tablet 12.5 mg PO DAILY 05/21/22 05/21/22 morphine 15 mg tablet,extended 15 mg PO Q12H 05/21/22 05/21/22 release oxycodone 10 mg tablet 10 mg PO QID PRN Pain, Moderate 05/21/22 05/21/22 tiotropium bromide 18 mcg capsule 1 cap inhalation DAILY 05/21/22 05/21/22 with inhalation device (Spiriva with HandiHaler) Previous Rx's Medication Instructions Recorded albuterol sulfate 90 mcg/actuation 2 puff inhalation Q6H PRN 05/23/22 aerosol inhaler shortness of breath or wheezing #8.5 grams dextromethorphan-guaifenesin 10 10 ml PO TID #237 mL 05/23/22 mg-100 mg/5 mL oral syrup doxycycline hyclate 100 mg tablet 100 mg PO Q12H #8 tabs 05/23/22 prednisone 20 mg tablet 20 mg PO DAILY #5 tabs 05/23/22 Allergies Allergy/AdvReac Type Severity Reaction Status Date / Time No Known Allergies Allergy Verified 11/11/23 10:01 Review of Systems Review of Systems: Constitutional : No Fever, No Chills ENT/Mouth : No Hoarseness, No sore throat, No Rhinorrhea Eyes: No Redness, No Discharge, No Vision Changes Cardiovascular : No Chest Pain, positive SOB, positive Dyspnea on Exertion, No Edema Respiratory : positive Cough, pos Sputum, positive Wheezing, Gastrointestinal : No Nausea, No Vomiting, No Diarrhea, No abdominal Pain Genitourinary : No Dysuria, No Hematuria Musculoskeletal : No joint pain, No Myalgias Skin : No rash Neuro : No Weakness, No Numbness, No Headache Psych : No anxiety, depression All other systems reviewed and are negative [facility] Past Medical History Attestation statement: The following information was validated with the patient. Source: old records reviewed Medical History Pulmonary nodule COPD (chronic obstructive pulmonary disease) Social History Social History (Updated 11/11/23 @ 10:06 by Belinda Juarez DO) Household Members: Spouse Housing: House Do you presently have visiting nurse or other home services: No Patient Tobacco Use Status: Former Tobacco user Smoked in Last 30 Days: No Advance Directives: No Advance Directives Information Provided: No service: No Current occupational status: retired Physical Exam Vital Signs: Vital Signs: Last Vital Signs Pulse 102 H 11/11/23 11:26 Resp 18 11/11/23 11:26 BP 143/78 H 11/11/23 11:26 Pulse Ox 94 11/11/23 11:26 O2 Del Method Aerosol Mask 11/11/23 11:26 BMI result Body Mass Index 26.1 Appearance: Alert. Oriented X3. Mild acute distress. Eyes: Pupils equal, round and reactive to light. ENT: Pharynx normal. Neck: Normal inspection. Neck supple. CVS: Normal heart rate and rhythm. Pulses normal. Respiratory: Mild respiratory distress - tachypnea and retractions. Breath sounds very diminished with diffuse exp wheezes Abdomen: Soft and nontender. Skin: Skin warm and dry. Normal skin color. Normal skin turgor. Extremities: No lower extremity edema. No calf ttp Neuro: Oriented X 3. No motor deficit. No sensory deficit. Course Course Course Narrative: repeat neb ordered Medications Administered Generic Name Dose Route Start Last Admin Trade Name Marie PRN Reason Stop Dose Admin Azithromycin 500 mg/ Sodium 250 mls @ 125 mls/hr 11/11/23 10:07 11/11/23 11:00 Chloride IV 11/11/23 12:06 125 mls/hr ONCE ONE Administration Discontinued Medications Generic Name Dose Route Start Last Admin Trade Name Marie PRN Reason Stop Dose Admin Albuterol Sulfate 2.5 mg/ 0 mg 11/11/23 10:19 11/11/23 10:27 Albuterol/Ipratropium 3 ml INHALE 11/11/23 10:20 5 dose ONCE ONE Administration Levalbuterol HCl 3.75 mg/ 0 mg 11/11/23 11:08 11/11/23 11:12 Ipratropium [place] 0.5 mg INHALE 11/11/23 11:09 7.5 dose ONCE ONE Administration Sodium Chloride 500 mls @ 500 mls/hr 11/11/23 10:00 11/11/23 11:38 Ns IV 11/11/23 10:59 Infused .Q1H ABDIAZIZ Infusion Methylprednisolone Sodium Succinate 60 mg 11/11/23 09:58 11/11/23 10:46 Methylprednisolone Sod Succ 125 Mg/2 Ml Vial IVPUSH 11/11/23 09:59 60 mg ONCE ONE Administration Medical Decision Making Medical Decision Making MDM Narrative: 68 yo female with PMH of HTN, bronchopneumonia, COPD not on home O2 here with c/o URI symptoms and wheezing since return from cruise at this time labs, CXR, viral panel, IV steroids, bronch protocol and given COPD with hypoxia and increased sputum production will start on IV azithromycin. Anticipate admission given new O2 needs. Differential Diagnosis Differential Diagnoses: The differential diagnosis associated with the presentation includes viral syndrome, pneumonia, COPD exacerbation Admission/Observation Consideration of admission/observation: Escalation of care including admission/observation considered admit for hypoxia Consult Healthcare Provider Management of the patient was discussed with: Hospitalist (will admit) Lab Data MDM Lab Attestation statement: I reviewed the patient's lab results. 11/11/23 10:42 11/11/23 10:42 Labs: Lab Results 11/11/23 Range/Units 10:42 WBC 5.8 (4.8-10.8) X10*3/uL RBC 4.91 (4.20-5.50) X10*6/uL Hgb 15.6 (12.0-16.0) g/dl Hct 46.2 (37.0-47.0) % MCV 94.1 (80.0-98.0) fL MCH 31.8 (27.0-33.0) pg MCHC 33.8 (31.0-35.0) g/dl RDW 12.0 (11.0-16.0) % Plt Count 125 L D (160-400) X10*3/uL MPV 9.2 L (9.4-12.3) fL Immature Gran % (Auto) 0.7 H (0.0-0.4) % Neut % (Auto) 77.8 H (45-73) % Lymph % (Auto) 10.7 L (20-40) % [place] % (Auto) 9.6 (2-11) % Eos % (Auto) 0.9 (0-4) % Baso % (Auto) 0.3 (0-2) % Lymph # (Auto) 0.6 L (1.2-4.9) X10*3/uL [place] # (Auto) 0.6 (0.1-1.2) X10*3/uL Eos # (Auto) 0.1 (0.0-0.4) X10*3/uL Baso # (Auto) 0.0 (0.0-0.2) X10*3/uL Abs Immat Gran (auto) 0.04 H (0.00-0.03) X10*3/uL Absolute Neuts (auto) 4.5 (2.0-8.3) x10*3/uL Absolute Nucleated RBC 0.000 (0.0-0.012) X10*3/uL Nucleated RBC % (auto) 0.0 (0.0-0.2) /100WBC Sodium 143 (135-145) mmol/L Potassium 3.9 (3.3-5.1) mmol/L Chloride 101 (96-108) mmol/L Carbon Dioxide 32 H (22-29) mmol/L Anion Gap 14 (12-20) BUN 12 (9-16) mg/dL Creatinine 0.80 (0.5-1.4) mg/dL Estim Creat Clear Calc 63.2 Estimated GFR > 60 Random Glucose 136 H (60-115) mg/dL Calcium 9.5 (8.4-10.2) mg/dL Magnesium 1.8 (1.6-2.6) mg/dL Total Bilirubin 0.5 (0.0-1.0) mg/dL Direct Bilirubin 0.2 (0.0-0.5) mg/dL AST 38 H (5-31) U/L ALT 44 H (0-31) U/L Alkaline Phosphatase 116 (39-117) U/L Troponin I High Sens < 2.7 (<3.5-17.0) ng/L Total Protein 7.5 (6.5-8.0) g/dL Albumin 4.5 (3.5-5.0) g/dL Influenza Type A (PCR) POSITIVE A (Negative) Influenza Type B (PCR) NEGATIVE (Negative) RSV RNA Qual (PCR) NEGATIVE (Negative) SARS-CoV-2 RNA (RT-PCR) NEGATIVE (Negative) Independent Interpretation I performed an independent interpretation of an: EKG and Plain X-Ray (no pneumonia) Interpretation: Rate: 98 Rhythm: NSR [place]: normal Normal P waves. Normal GUMARO. Normal QRS complex. ST T wave : normal no MARCO qTC: 454 prior studies: no acute ischemia The study has been interpreted contemporaneously by me. . Radiology Impression Discussion of test interpretation with radiology: I have reviewed the radiologist's reading. Independent Historian Clinical information obtained from an independent historian. History obtained from or confirmed by: EMS External Record Review External record reviewed: Inpatient record Critical Care Time Critical Care Time Critical Care Time: Yes Total Critical Care Time: 45 Attestation: repeat nebs and IV steroids, treatment of hypoxia I attest to this time spent taking care of the patient Discharge Plan Discharge Clinical Impression: Acute exacerbation of chronic obstructive pulmonary disease, Hypoxia, Influenza A Patient Disposition: Admitted As Inpatient Prescriptions: No Action amlodipine 5 mg Tablet 5 mg PO DAILY morphine 15 mg Tablet Extended Release 15 mg PO Q12H fluticasone propionate 220 mcg/actuation Hfa Aerosol Inhaler 2 puff INHALATION BID Spiriva with HandiHaler 18 mcg Capsule, W/Inhalation Device 1 cap INHALATION DAILY Rx Instructions: puncture 1 cap using device; one dose = 2 inhalations hydrochlorothiazide 12.5 mg Tablet 12.5 mg PO DAILY oxycodone 10 mg Tablet 10 mg PO QID PRN (Reason: Pain, Moderate) dextromethorphan-guaifenesin 10-100 mg/5 mL Syrup 10 ml PO TID Qty: 237 0RF doxycycline hyclate 100 mg Tablet 100 mg PO Q12H Qty: 8 0RF prednisone 20 mg tablet 20 mg PO DAILY Qty: 5 0RF albuterol sulfate 90 mcg/actuation HFA aerosol inhaler 2 puff inhalation Q6H PRN (Reason: shortness of breath or wheezing) Qty: 8.5 0RF
--- NOTE | 2023-11-11 09:58 | ECG_ITS ---
Test Reason : DYSPNEA Blood Pressure : / mmHG Vent. Rate : 098 BPM Atrial Rate : 098 BPM P-R Int : 124 ms QRS Dur : 086 ms QT Int : 356 ms P-R-T Axes : 078 070 081 degrees QTc Int : 454 ms Normal sinus rhythm Normal ECG When compared with ECG of 20-MAY-2022 12:49, No significant change was found Referred By: Belinda Juarez Electronically Signed By:KATE RIVERA MD
[2023-11-11] MEDS: Albuterol Sulfate 2.5 MG, Albuterol/Iprat 2.5/0.5MG 3 ML 3 ML INHALE (10:27)
[2023-11-11] MEDS: 0.9 % Sodium Chloride 500 ML IV (10:44)
[2023-11-11] MEDS: methylPREDNISolone Sod Succ 125 MG/2 ML VIAL 60 MG IVPUSH (10:46)
[2023-11-11 10:49] LABS: MANUAL DIFF FLAG NO
[2023-11-11 10:55] LABS: Basophils Percent Auto 0.3 % (0-2); Eosinophils Absolute Auto 0.1 X10*3/uL (0.0-0.4); Eosinophils Percent Auto 0.9 % (0-4); Hematocrit 46.2 % (37.0-47.0); Hemoglobin 15.6 g/dl (12.0-16.0); Imm Gran Abs Auto 0.04 X10*3/uL (0.00-0.03); Imm Gran Pct Auto 0.7 % (0.0-0.4); Lymphocytes Absolute Auto 0.6 X10*3/uL (1.2-4.9); Lymphocytes Percent Auto 10.7 % (20-40); Mean Corpuscular HGB Conc 33.8 g/dl (31.0-35.0); Mean Corpuscular Hemoglobin 31.8 pg (27.0-33.0); Mean Corpuscular Volume 94.1 fL (80.0-98.0); Mean Platelet Volume 9.2 fL (9.4-12.3); Monocytes Absolute Auto 0.6 X10*3/uL (0.1-1.2); Monocytes Percent Auto 9.6 % (2-11); Neutrophils Absolute Auto 4.5 x10*3/uL (2.0-8.3); Neutrophils Percent Auto 77.8 % (45-73); Platelet Count 125 X10*3/uL (160-400); Red Blood Count 4.91 X10*6/uL (4.20-5.50); White Blood Count 5.8 X10*3/uL (4.8-10.8)
[2023-11-11] MEDS: Azithromycin 500 MG in 0.9 % Sodium Chloride 250 ML 125 MG IV (11:00)
[2023-11-11] MEDS: levalbuterol HCL 3.75 MG, Ipratropium Bromide 0.5 MG INHALE (11:12)
[2023-11-11 11:42] LABS: Influenza A PCR POSITIVE (Negative); Influenza B PCR NEGATIVE (Negative); Resp Syncy Virus RNA Qual PCR NEGATIVE (Negative); SARS COV2 PCR INHOUSE NEGATIVE (Negative)
[2023-11-11 11:43] LABS: Alanine Aminotransferase 44 U/L (0-31); Albumin Level 4.5 g/dL (3.5-5.0); Alkaline Phosphatase 116 U/L (39-117); Anion Gap 14 (12-20); Aspartate Amino Transferase 38 U/L (5-31); Bilirubin Direct 0.2 mg/dL (0.0-0.5); Bilirubin Total 0.5 mg/dL (0.0-1.0); Blood Urea Nitrogen 12 mg/dL (9-16); Calcium 9.5 mg/dL (8.4-10.2); Carbon Dioxide 32 mmol/L (22-29); Chloride 101 mmol/L (96-108); Creatinine Clr Calc Pharmacy 63.2; Estimated Glomerular Filt Rate > 60; Glucose Random 136 mg/dL (60-115); Magnesium 1.8 mg/dL (1.6-2.6); Potassium 3.9 mmol/L (3.3-5.1); Sodium 143 mmol/L (135-145); Total Protein 7.5 g/dL (6.5-8.0); Troponin-I High Sensitivity < 2.7 ng/L (<3.5-17.0)
[2023-11-11 11:46] LABS: Lactic Acid 2.2 mmol/L (0.5-2.0)
[2023-11-11 11:55] LABS: B Type Natriuretic Peptide 35 pg/mL (<100)
[2023-11-11 11:59] LABS: Procalcitonin 0.03 ng/mL
[2023-11-11] MEDS: Oseltamivir Phosphate 75 MG CAPSULE PO ×2 (12:11→20:22)
--- NOTE | 2023-11-11 12:30 | PC.NURSE ---
PT RESTING IN STRETCHER, AWAITING ADMISSION ORDERS. AIRBORN PRECAUTIONS IN PLACE. PT DENIES PAIN AT THIS TIME, RESP EVEN, SLIGHTLY LABOURED, INSP & EXP WHEEZING AND RHONCHI THROUGHOUT, NEB TX STILL RUNNING. PT AMBULATING INDEPENDENTLY, STEADILY TO RESTROOM, THOUGH WHEN TRIALED OFF O2 PT SATTING DOWN TO 79% ON RA, PLACED BACK ON 3L SUPP O2, NOW SATTING 92-93%. HX COPD, NON SMOKER. SINUS TACH ON MONITOR. PT AWARE OF PLAN FOR CARE.
--- NOTE | 2023-11-11 12:39 | P.HPHOSP_ITS ---
History of Present Illness Date of Service: 11/11/23 Chief Complaint: sob 68 year old female with history of chronic low back pain, opioid dependence, htn, copd not on home O2 presented to the ED earlier today for evaluation of dyspnea. Reports has had dyspnea both at rest and with exertion progressively worsening since saturday. Has chronic cough with clear sputum production that has not changed in quality or severity. Was recently [place] a cruise ship and grandson is sick with URI symptoms. No fevers, chills, st, congestion, abd pain, n/v/d, palpitations, lightheadedness, or chest pain. She does endorse polyuria but no dysuria, hematuria, or urgency. On arrival, VS stable. has developed mild tachycardia following albuterol administration. Hypoxia to the 70s with little exertion now on 3L supplemental O2 maintaining oximetry 93%. No leukocytosis. Renal function normal, lytes normal except co2 32. Initial lactic acid 2.2. AST 38/ALT 44. Trop below detectable limits, BNP 35. PCT 0.03. Positive for influenza A, negative rsv, covid 19. CXr shows emphysematous changes and a few scattered linear opacitis/atelectasis. NO evidence of pneumonia. In the ED, given duoneb, 500ml IVNS, tamiflu, zithromax, solumedrol, and levalbuterol. Review of Systems 2 Review of Systems: General: No fevers, malaise, unintentional weight loss HEENT: No blurred vision, diplopia. No sore throat, nasal congestion, rhinorrhea, sinus pain, ear pain Cardiovascular: No chest pain, palpitations, or leg edema Respiratory: +sob, +cough. No wheezing, cough GI: No abdominal pain, nausea, vomiting, diarrhea, constipation, melena, hematochezia : +polyuria. No dysuria, hematuria, decreased urinary output MSK: No myalgia, back pain Neuro: No headaches, weakness, paresthesias Skin: No rashes or lesions [facility] Medical History (Updated 11/11/23 @ 12:49 by GRISELDA Porter) Opioid dependence Chronic low back pain Pulmonary nodule COPD (chronic obstructive pulmonary disease) Social History (Updated 11/11/23 @ 10:06 by Belinda Juarez DO) Household Members: Spouse Housing: House Do you presently have visiting nurse or other home services: No Patient Tobacco Use Status: Former Tobacco user Smoked in Last 30 Days: No Advance Directives: No Advance Directives Information Provided: No service: No Current occupational status: retired Meds Allergies Allergy/AdvReac Type Severity Reaction Status Date / Time No Known Allergies Allergy Verified 11/11/23 10:01 Active Medications: Current Medications Acetaminophen (Acetaminophen 325 Mg Tablet) 650 mg PO Q6H PRN PRN Reason: Pain, Mild (Pain Scale 1-3) Albuterol/Ipratropium (Albuterol/Iprat 2.5/0.5mg 3 Ml Ampul.Neb) 3 ml INHALE RQ4H WHILE AWAKE [facility] Enoxaparin Sodium (Enoxaparin Sodium 40 Mg/0.4 Ml Syringe) 40 mg SUBCUT Q24H ABDIAZIZ Guaifenesin (Guaifenesin 200 Mg/10 Ml 10 Ml Liquid) 10 ml PO Q4H PRN PRN Reason: Cough Azithromycin 500 mg/ Sodium (Chloride) 250 mls @ 125 mls/hr IV Q24H [facility] Methylprednisolone Sodium Succinate (Methylprednisolone Sod Succ 40 Mg/Ml Vial) 40 mg IVPUSH Q12H ABDIAZIZ Ondansetron HCl (Ondansetron Hcl 4 Mg/2 Ml Vial) 4 mg IVPUSH Q8H PRN PRN Reason: Nausea and Vomiting Oseltamivir Phosphate (Oseltamivir Phosphate 75 Mg Capsule) 75 mg PO Q12H [facility] Stop: 11/15/23 21:01 Senna (Sennosides 8.6 Mg Tablet) 17.2 mg PO BEDTIME PRN PRN Reason: Constipation Sodium Chloride (0.9 % Sodium Chloride Flush 3 Ml Syringe) 3 ml IVFLUSH QSHIFT [facility] Home Medications Medication Instructions Recorded Confirmed Last Taken Type hydrochlorothiazide 12.5 mg tablet 12.5 mg PO DAILY 05/21/22 11/11/23 Unknown History morphine 15 mg tablet,extended 15 mg PO BID 05/21/22 11/11/23 Unknown History release oxycodone 10 mg tablet 10 mg PO QID PRN Pain, Moderate 05/21/22 11/11/23 Unknown History albuterol sulfate 90 mcg/actuation 2 puff inhalation Q4H PRN 11/11/23 11/11/23 Unknown History aerosol inhaler shortness of breath or wheezing alendronate 70 mg tablet 70 mg PO MO 11/11/23 11/11/23 Unknown History amlodipine 10 mg tablet 10 mg PO DAILY 11/11/23 11/11/23 Unknown History docusate sodium 100 mg capsule 100 mg PO DAILY 11/11/23 11/11/23 Unknown History fluticasone 500 mcg-salmeterol 50 1 inh inhalation BID 11/11/23 11/11/23 Unknown History mcg/dose blistr powdr for inhalation (Brittaxela Inhub) ibuprofen 800 mg tablet 800 mg PO TID PRN Pain 11/11/23 11/11/23 Unknown History ipratropium 0.5 mg-albuterol 3 mg 3 ml inhalation QID PRN Wheezing 11/11/23 11/11/23 Unknown History (2.5 mg base)/3 mL nebulization soln multivitamin 1 tab PO DAILY 11/11/23 11/11/23 Unknown History naloxone 0.4 mg/mL injection 0.4 mg subcut Q3M PRN overdose 11/11/23 11/11/23 Unknown History solution tiotropium bromide 2.5 2 puff inhalation DAILY 11/11/23 11/11/23 Unknown History mcg/actuation mist for inhalation (Spiriva Respimat) Physical Exam 2 Vital Signs and Narrative: Vital Signs: Last Vital Signs Pulse 107 H 11/11/23 12:10 Resp 16 11/11/23 12:10 BP 134/77 11/11/23 12:10 Pulse Ox 92 11/11/23 12:10 O2 Del Method Nasal Cannula 11/11/23 12:10 O2 Flow Rate 3 11/11/23 12:10 BMI result Body Mass Index 26.1 Constitutional - Awake and Alert, No apparent distress Eyes - PERRLA, EOMI Cardiovascular - S1S2, RRR, No edema Respiratory - Normal lung expansion, Normal respiratory effort, No respiratory distress on 3L supplemental O2, diffuse expiratory wheezing Gastrointestinal - NT / ND; +BS; No rebound or guarding Extremities - no calf tenderness bilaterally, no swelling Musculoskeletal - Normal inspection, normal ROM Skin - Warm/Dry Neurological - Alert & oriented x3 Psychological - Appropriate affect Results Labs 11/11/23 10:42 11/11/23 10:42 Labs: Laboratory Results - last 24 hr 11/11/23 10:42 MCV 94.1 MCH 31.8 MCHC 33.8 RDW 12.0 Plt Count 125 L D MPV 9.2 L Immature Gran % (Auto) 0.7 H Neut % (Auto) 77.8 H Lymph % (Auto) 10.7 L [place] % (Auto) 9.6 Eos % (Auto) 0.9 Baso % (Auto) 0.3 Lymph # (Auto) 0.6 L [place] # (Auto) 0.6 Eos # (Auto) 0.1 Baso # (Auto) 0.0 Abs Immat Gran (auto) 0.04 H Absolute Neuts (auto) 4.5 Absolute Nucleated RBC 0.000 Nucleated RBC % (auto) 0.0 Anion Gap 14 Estim Creat Clear Calc 63.2 Estimated GFR > 60 Random Glucose 136 H Lactic Acid 2.2 H* Calcium 9.5 Magnesium 1.8 Total Bilirubin 0.5 Direct Bilirubin 0.2 AST 38 H ALT 44 H Alkaline Phosphatase 116 Troponin I High Sens < 2.7 B-Natriuretic Peptide 35 Total Protein 7.5 Albumin 4.5 Procalcitonin 0.03 Influenza Type A (PCR) POSITIVE A Influenza Type B (PCR) NEGATIVE RSV RNA Qual (PCR) NEGATIVE SARS-CoV-2 RNA (RT-PCR) NEGATIVE Imaging Radiologist's Impressions: Impressions Chest X-Ray 11/11/23 10:26 IMPRESSION: * Chronic emphysematous lung disease. * There are a few scattered linear opacities of atelectasis or scarring in each lung. * No radiographic evidence of pneumonia. Assessment and Plan (1) Influenza A: Status: Acute (2) Hypoxia: Status: Acute (3) Acute exacerbation of chronic obstructive pulmonary disease: Status: Acute Plan 68 year old female with history of chronic low back pain, opioid dependence, htn, copd not on home O2 admitted for acute hypoxemic respiratory failure due to influenza A and copd exacerbation #Acute hypoxemic respiratory failure due to influenza A and COPD exacerbation -CXR negative for pneumonia -continue supplemental O2 to maintain oximetry 90-92% -IV methylprednisolone 40mg BID -duonebs q4h while awake, albuterol prn -tamiflu (initiated 11/10) -azithromycin 500mg qd for pleiotropic effect (initiated 11/10) -symptomatic management -continue maintenance inhalers -tachycardia due to albuterol, not sepsis, no sirs criteria -follow cultures #Polyuria -UA pending #HTN -bp reasonably controlled -continue hctz, amlodipine #chronic low back pain on chronic opioids -continue ms contin, oxycodone dvt prophylaxis- lovenox full code pt requires inpt stay at least 2 midnights due to acute hypoxemic respiratory failure due to influenza and copd exacerbation requiring supplemental O2, iv steroids, scheduled nebs and closemonitoring of respiratory status. Quality Stroke Does the patient have a stroke diagnosis?: No VTE Prior VTE?: No VTE Risk Level:: Medical - moderate - high VTE Device Contraindication: Treatment Not Indicated VTE Drug Contraindication: N/A - Med Ordered
[2023-11-11 12:48] LABS: Reflex Lactate? Lactic Acid Added
--- NOTE | 2023-11-11 12:55 | PHA.MEDREC ---
Pharmacy Consult ? Medication Reconciliation Pharmacy has completed the medication reconciliation with a list from the patient.
[2023-11-11] MEDS: Enoxaparin Sodium 40 MG/0.4 ML SYRINGE SUBCUT (13:06)
[2023-11-11] MEDS: Ibuprofen 600 MG TABLET PO (13:06)
[2023-11-11] MEDS: oxyCODONE HCl Immed Release 5 MG TABLET 10 MG PO ×3 (13:06→22:12)
[2023-11-11 13:45] LABS: ~Lactic Acid-LAB USE ONLY 1.3 mmol/L (0.5-2.0)
[2023-11-11] MEDS: Albuterol/Iprat 2.5/0.5MG 3 ML AMPUL.NEB INHALE ×2 (15:21→20:30)
[2023-11-11 15:23] LABS: Appearance Urine Clear; Color Urine Yellow; Glucose Urine UA Negative (Negative); Leukocyte Esterase Urine Negative (Negative); Nitrite Urine Negative (Negative); PH 5.5 (5.0-9.0); Specific Gravity - Urine 1.015 (1.005-1.025); Urine Blood Negative (Negative); Urine Ketones Negative (Negative); Urine Protein Negative (Neg-Trace)
[2023-11-11] MEDS: Acetaminophen 325 MG TABLET 650 MG PO (18:12)
[2023-11-11] MEDS: methylPREDNISolone Sod Succ 40 MG/ML VIAL IVPUSH (20:22)
[2023-11-11] MEDS: Morphine Sulfate ER 15 MG TABLET.ER PO (20:22)
[2023-11-11] MEDS: guaiFENesin 200 MG/10 ML 10 ML LIQUID PO (20:22)
[2023-11-11] MEDS: 0.9 % Sodium Chloride Flush 3 ML SYRINGE IVFLUSH (20:23)
[2023-11-12] VITALS (8 sets, daily range): BP systolic 143–165; BP diastolic 69–90; PULSE 92–105; RESP 16–24; TEMP 36.3–36.7; O2SAT 92–99
[2023-11-12] MEDS: Acetaminophen 325 MG TABLET 650 MG PO (03:17)
[2023-11-12] MEDS: guaiFENesin 200 MG/10 ML 10 ML LIQUID PO ×3 (03:17→20:45)
[2023-11-12] MEDS: oxyCODONE HCl Immed Release 5 MG TABLET 10 MG PO ×2 (05:00→15:49)
[2023-11-12 06:48] LABS: MANUAL DIFF FLAG NO
[2023-11-12 07:03] LABS: Basophils Percent Auto 0.2 % (0-2); Hematocrit 42.1 % (37.0-47.0); Hemoglobin 14.5 g/dl (12.0-16.0); Imm Gran Abs Auto 0.05 X10*3/uL (0.00-0.03); Imm Gran Pct Auto 0.9 % (0.0-0.4); Lymphocytes Absolute Auto 0.4 X10*3/uL (1.2-4.9); Lymphocytes Percent Auto 6.8 % (20-40); Mean Corpuscular HGB Conc 34.4 g/dl (31.0-35.0); Mean Corpuscular Hemoglobin 31.7 pg (27.0-33.0); Mean Corpuscular Volume 91.9 fL (80.0-98.0); Mean Platelet Volume 9.9 fL (9.4-12.3); Monocytes Absolute Auto 0.4 X10*3/uL (0.1-1.2); Monocytes Percent Auto 6.6 % (2-11); Neutrophils Absolute Auto 4.9 x10*3/uL (2.0-8.3); Neutrophils Percent Auto 85.5 % (45-73); Platelet Count 129 X10*3/uL (160-400); Red Blood Count 4.58 X10*6/uL (4.20-5.50); Red Cell Distribution Width 12.1 % (11.0-16.0); White Blood Count 5.8 X10*3/uL (4.8-10.8)
[2023-11-12 07:22] LABS: Anion Gap 13 (12-20); Blood Urea Nitrogen 16 mg/dL (9-16); Calcium 9.1 mg/dL (8.4-10.2); Carbon Dioxide 25 mmol/L (22-29); Chloride 105 mmol/L (96-108); Creatinine Clr Calc Pharmacy 73.8; Estimated Glomerular Filt Rate > 60; Glucose Random 154 mg/dL (60-115); Potassium 4.2 mmol/L (3.3-5.1); Sodium 139 mmol/L (135-145)
[2023-11-12] MEDS: Fluticasone/Vilanterol 200/25 BLST.W.DEV 1 PUFF INHALE (07:37)
[2023-11-12] MEDS: Albuterol/Iprat 2.5/0.5MG 3 ML AMPUL.NEB INHALE ×4 (07:37→19:33)
[2023-11-12] MEDS: Tiotropium Bromide 2.5 mcg 1 PUFF/2.5 MCG MIST.INHAL 2 PUFF INHALE (07:37)
[2023-11-12] MEDS: 0.9 % Sodium Chloride Flush 3 ML SYRINGE IVFLUSH ×3 (08:44→20:46)
[2023-11-12] MEDS: Docusate Sodium 100 MG CAPSULE PO (08:44)
[2023-11-12] MEDS: hydroCHLOROthiazide 12.5 MG TABLET PO (08:45)
[2023-11-12] MEDS: Multivitamin TABLET 1 TAB PO (08:45)
[2023-11-12] MEDS: Morphine Sulfate ER 15 MG TABLET.ER PO ×2 (08:45→20:46)
[2023-11-12] MEDS: amLODIPine Besylate 10 MG TABLET PO (08:46)
[2023-11-12] MEDS: methylPREDNISolone Sod Succ 40 MG/ML VIAL IVPUSH ×2 (08:46→20:45)
[2023-11-12] MEDS: Oseltamivir Phosphate 75 MG CAPSULE PO ×2 (08:46→20:45)
--- NOTE | 2023-11-12 11:19 | P.PNIM_ITS ---
Subjective Subjective Date of Service: 11/12/23 Interval History: f/u on acute hypoxic resp failure due to influenza causing copd exacerbation Physical Exam 2 Vital Signs: Vital Signs: Last Vital Signs Temp 97.3 F 11/12/23 07:58 Pulse 93 11/12/23 07:58 Resp 18 11/12/23 07:58 BP 149/69 H 11/12/23 07:58 Pulse Ox 97 11/12/23 07:58 O2 Del Method Nasal Cannula 11/12/23 07:58 O2 Flow Rate 2.0 11/12/23 07:58 BMI result Body Mass Index 27.2 General: AO X 3, no acute distress Resp: wheezing gladys, some wok of breathing CVS: S1,S2,RRR GI: +BS, NT, no distention Skin: No rash Neuro: motor grossly intact Psych: appropriate affect Objective Data Active Medications Acetaminophen (Acetaminophen 325 Mg Tablet) 650 mg PO Q6H PRN PRN Reason: Pain, Mild (Pain Scale 1-3) Last Admin: 11/12/23 03:17 Dose: 650 mg Documented By: SOPHIE Albuterol Sulfate (Albuterol Sulfate 90 Mcg 8 Gm Inhaler) 2 puff INHALE Q4H PRN PRN Reason: shortness of breath or wheezing Albuterol/Ipratropium (Albuterol/Iprat 2.5/0.5mg 3 Ml Ampul.Neb) 3 ml INHALE RQ4H WHILE AWAKE [facility] Last Admin: 11/12/23 11:10 Dose: 3 ml Documented By: MARICRUZ Albuterol/Ipratropium (Albuterol/Iprat 2.5/0.5mg 3 Ml Ampul.Neb) 3 ml INHALE QID PRN PRN Reason: Wheezing Amlodipine Besylate (Amlodipine Besylate 10 Mg Tablet) 10 mg PO DAILY [facility]; Protocol Last Admin: 11/12/23 08:46 Dose: 10 mg Documented By: ANGIE Docusate Sodium (Docusate Sodium 100 Mg Capsule) 100 mg PO DAILY [facility] Last Admin: 11/12/23 08:44 Dose: 100 mg Documented By: ANGIE Enoxaparin Sodium (Enoxaparin Sodium 40 Mg/0.4 Ml Syringe) 40 mg SUBCUT Q24H [facility] Last Admin: 11/11/23 13:06 Dose: 40 mg Documented By: DANIEL Fluticasone/Vilanterol (Fluticasone/Vilanterol 200/25 Blst.W.Dev) 1 puff INHALE RDAILY [facility] Last Admin: 11/12/23 07:37 Dose: 1 puff Documented By: MARICRUZ Guaifenesin (Guaifenesin 200 Mg/10 Ml 10 Ml Liquid) 10 ml PO Q4H PRN PRN Reason: Cough Last Admin: 11/12/23 03:17 Dose: 10 ml Documented By: SOPHIE Hydrochlorothiazide (Hydrochlorothiazide 12.5 Mg Tablet) 12.5 mg PO DAILY [facility]; Protocol Last Admin: 11/12/23 08:45 Dose: 12.5 mg Documented By: ANGIE Azithromycin 500 mg/ Sodium (Chloride) 250 mls @ 125 mls/hr IV Q24H [facility] Methylprednisolone Sodium Succinate (Methylprednisolone Sod Succ 40 Mg/Ml Vial) 40 mg IVPUSH Q12H [facility] Last Admin: 11/12/23 08:46 Dose: 40 mg Documented By: ANGIE Morphine Sulfate (Morphine Sulfate Er 15 Mg Tablet.Er) 15 mg PO BID [facility] Last Admin: 11/12/23 08:45 Dose: 15 mg Documented By: ANGIE Multivitamins/Vitamin C (Multivitamin Tablet) 1 tab PO DAILY [facility] Last Admin: 11/12/23 08:45 Dose: 1 tab Documented By: ANGIE Naloxone HCl (Naloxone Hcl 0.4 Mg/Ml Vial) 0.4 mg SUBCUT Q3M PRN PRN Reason: overdose Ondansetron HCl (Ondansetron Hcl 4 Mg/2 Ml Vial) 4 mg IVPUSH Q8H PRN PRN Reason: Nausea and Vomiting Oseltamivir Phosphate (Oseltamivir Phosphate 75 Mg Capsule) 75 mg PO Q12H [facility] Stop: 11/15/23 21:01 Last Admin: 11/12/23 08:46 Dose: 75 mg Documented By: ANGIE Oxycodone HCl (Oxycodone Hcl Immed Release 5 Mg Tablet) 10 mg PO QID PRN PRN Reason: Pain, Severe (Pain Scale 7-10) Last Admin: 11/12/23 05:00 Dose: 10 mg Documented By: SOPHIE Senna (Sennosides 8.6 Mg Tablet) 17.2 mg PO BEDTIME PRN PRN Reason: Constipation Sodium Chloride (0.9 % Sodium Chloride Flush 3 Ml Syringe) 3 ml IVFLUSH QSHIFT [facility] Last Admin: 11/12/23 08:44 Dose: 3 ml Documented By: ANGIE Tiotropium [place] (Tiotropium [place] 2.5 Mcg 1 Puff/2.5 Mcg Mist.Inhal) 2 puff INHALE DAILY [facility] Last Admin: 11/12/23 07:37 Dose: 2 puff Documented By: MARICRUZ Labs 11/12/23 06:04 11/12/23 06:04 Labs: Laboratory Results - last 24 hr 11/11/23 11/11/23 11/11/23 10:42 13:29 15:14 MCV MCH MCHC RDW Plt Count MPV Immature Gran % (Auto) Neut % (Auto) Lymph % (Auto) [facility] % (Auto) Eos % (Auto) Baso % (Auto) Lymph # (Auto) [facility] # (Auto) Eos # (Auto) Baso # (Auto) Abs Immat Gran (auto) Absolute Neuts (auto) Absolute Nucleated RBC Nucleated RBC % (auto) Anion Gap 14 Estim Creat Clear Calc 63.2 Estimated GFR > 60 Random Glucose 136 H Lactic Acid 2.2 H* Lactic Acid F/U @ 2Hr 1.3 Calcium 9.5 Magnesium 1.8 Total Bilirubin 0.5 Direct Bilirubin 0.2 AST 38 H ALT 44 H Alkaline Phosphatase 116 Troponin I High Sens < 2.7 B-Natriuretic Peptide 35 Total Protein 7.5 Albumin 4.5 Procalcitonin 0.03 Urine Color Yellow Urine Appearance Clear Urine pH 5.5 Ur Specific [place] 1.015 Urine Protein Negative Urine Glucose (UA) Negative Urine Ketones Negative Urine Blood Negative Urine Nitrite Negative Ur Leukocyte Esterase Negative Influenza Type A (PCR) POSITIVE A Influenza Type B (PCR) NEGATIVE RSV RNA Qual (PCR) NEGATIVE SARS-CoV-2 RNA (RT-PCR) NEGATIVE 11/12/23 06:04 MCV 91.9 MCH 31.7 MCHC 34.4 RDW 12.1 Plt Count 129 L MPV 9.9 Immature Gran % (Auto) 0.9 H Neut % (Auto) 85.5 H Lymph % (Auto) 6.[address] [facility] % (Auto) 6.6 Eos % (Auto) 0.0 Baso % (Auto) 0.2 Lymph # (Auto) 0.[address] [facility] # (Auto) 0.4 Eos # (Auto) 0.0 Baso # (Auto) 0.0 Abs Immat Gran (auto) 0.05 H Absolute Neuts (auto) 4.9 Absolute Nucleated RBC 0.000 Nucleated RBC % (auto) 0.0 Anion Gap 13 Estim Creat Clear Calc 73.8 Estimated GFR > 60 Random Glucose 154 H Lactic Acid Lactic Acid F/U @ 2Hr Calcium 9.1 Magnesium Total Bilirubin Direct Bilirubin AST ALT Alkaline Phosphatase Troponin I High Sens B-Natriuretic Peptide Total Protein Albumin Procalcitonin Urine Color Urine Appearance Urine pH Ur Specific [place] Urine Protein Urine Glucose (UA) Urine Ketones Urine Blood Urine Nitrite Ur Leukocyte Esterase Influenza Type A (PCR) Influenza Type B (PCR) RSV RNA Qual (PCR) SARS-CoV-2 RNA (RT-PCR) Assessment and Plan (1) Influenza A: Status: Acute (2) Hypoxia: Status: Acute (3) Acute exacerbation of chronic obstructive pulmonary disease: Status: Acute Plan 68 year old female with history of chronic low back pain, opioid dependence, htn, copd not on home O2 admitted for acute hypoxemic respiratory failure due to influenza A and copd exacerbation #Acute hypoxemic respiratory failure due to influenza A and COPD exacerbation--improving slowly -Tamiflu for influenza x 5 days -Bronchodilators by Neb -IV steroid -Empiric Azithro for pleotropic effect #Polyuria--UA is negative #HTN--reasonable control, continue HCTZ and Norvasc #chronic low back pain on chronic opioids -continue ms contin, oxycodone dvt prophylaxis- lovenox full code need for inpatient: management for acute hypoxic resp failure needing O2 and IV steroid. Quality Stroke Does the patient have a stroke diagnosis?: No VTE Prior VTE?: No VTE Risk Level:: Medical - moderate - high VTE Device Contraindication: Treatment Not Indicated VTE Drug Contraindication: N/A - Med Ordered
[2023-11-12] MEDS: Azithromycin 500 MG in 0.9 % Sodium Chloride 250 ML 125 MG IV (11:37)
--- NOTE | 2023-11-12 11:49 | MHC.CM.PN ---
IMM DELIVERED. PATIENT IS FROM HOME W/ , WHO HELPS W/ ADL'S PRN. DENIES ANY SERVICES OR DME. NO HOME O2. DISCUSSED [facility] REFERRAL, PATIENT DECLINED. 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 CM WILL CONTINUE TO FOLLOW.
[2023-11-12] MEDS: Enoxaparin Sodium 40 MG/0.4 ML SYRINGE SUBCUT (13:31)
[2023-11-13] VITALS (8 sets, daily range): BP systolic 142–158; BP diastolic 79–92; PULSE 88–97; RESP 18; TEMP 36.4–36.7; O2SAT 94–95
[2023-11-13] MEDS: oxyCODONE HCl Immed Release 5 MG TABLET 10 MG PO ×4 (00:20→22:45)
[2023-11-13] MEDS: 0.9 % Sodium Chloride Flush 3 ML SYRINGE IVFLUSH ×4 (00:21→23:41)
[2023-11-13] MEDS: guaiFENesin 200 MG/10 ML 10 ML LIQUID PO ×3 (00:25→21:20)
[2023-11-13] MEDS: Albuterol/Iprat 2.5/0.5MG 3 ML AMPUL.NEB INHALE ×4 (08:17→19:49)
[2023-11-13] MEDS: Tiotropium Bromide 2.5 mcg 1 PUFF/2.5 MCG MIST.INHAL 2 PUFF INHALE (08:17)
[2023-11-13] MEDS: Fluticasone/Vilanterol 200/25 BLST.W.DEV 1 PUFF INHALE (08:17)
[2023-11-13] MEDS: Morphine Sulfate ER 15 MG TABLET.ER PO ×2 (09:04→20:41)
[2023-11-13] MEDS: methylPREDNISolone Sod Succ 40 MG/ML VIAL IVPUSH ×2 (09:04→20:41)
[2023-11-13] MEDS: Docusate Sodium 100 MG CAPSULE PO (09:05)
[2023-11-13] MEDS: Multivitamin TABLET 1 TAB PO (09:05)
[2023-11-13] MEDS: amLODIPine Besylate 10 MG TABLET PO (09:05)
[2023-11-13] MEDS: hydroCHLOROthiazide 12.5 MG TABLET PO (09:05)
[2023-11-13] MEDS: Oseltamivir Phosphate 75 MG CAPSULE PO ×2 (09:05→20:41)
--- NOTE | 2023-11-13 09:40 | HO.PM.IMPN ---
Subjective Subjective Date of Service: 11/13/23 Physical Exam Vital Signs: Vital Signs: Last Vital Signs Temp 98.0 F 11/13/23 08:00 Pulse 96 11/13/23 08:20 Resp 18 11/13/23 08:20 BP 146/79 H 11/13/23 08:00 Pulse Ox 95 11/13/23 08:00 O2 Del Method Nasal Cannula 11/13/23 08:00 O2 Flow Rate 2.0 11/13/23 08:00 BMI result Body Mass Index 27.2 General: AO X 3, no acute distress Resp: wheezing gladys, nl effort CVS: S1,S2,RRR GI: +BS, NT, no distention Skin: No rash Neuro: motor grossly intact Psych: appropriate affect Objective Data Active Medications Acetaminophen (Acetaminophen 325 Mg Tablet) 650 mg PO Q6H PRN PRN Reason: Pain, Mild (Pain Scale 1-3) Last Admin: 11/12/23 03:17 Dose: 650 mg Documented By: SOPHIE Albuterol Sulfate (Albuterol Sulfate 90 Mcg 8 Gm Inhaler) 2 puff INHALE Q4H PRN PRN Reason: shortness of breath or wheezing Albuterol/Ipratropium (Albuterol/Iprat 2.5/0.5mg 3 Ml Ampul.Neb) 3 ml INHALE RQ4H WHILE AWAKE [facility] Last Admin: 11/13/23 08:17 Dose: 3 ml Documented By: ANAIS Albuterol/Ipratropium (Albuterol/Iprat 2.5/0.5mg 3 Ml Ampul.Neb) 3 ml INHALE QID PRN PRN Reason: Wheezing Amlodipine Besylate (Amlodipine Besylate 10 Mg Tablet) 10 mg PO DAILY [facility]; Protocol Last Admin: 11/13/23 09:05 Dose: 10 mg Documented By: ROSMERY Docusate Sodium (Docusate Sodium 100 Mg Capsule) 100 mg PO DAILY [facility] Last Admin: 11/13/23 09:05 Dose: 100 mg Documented By: ROSMERY Enoxaparin Sodium (Enoxaparin Sodium 40 Mg/0.4 Ml Syringe) 40 mg SUBCUT Q24H [facility] Last Admin: 11/12/23 13:31 Dose: 40 mg Documented By: ANGIE Fluticasone/Vilanterol (Fluticasone/Vilanterol 200/25 Blst.W.Dev) 1 puff INHALE RDAILY [facility] Last Admin: 11/13/23 08:17 Dose: 1 puff Documented By: ANAIS Guaifenesin (Guaifenesin 200 Mg/10 Ml 10 Ml Liquid) 10 ml PO Q4H PRN PRN Reason: Cough Last Admin: 11/13/23 00:25 Dose: 10 ml Documented By: NEYMAR Hydrochlorothiazide (Hydrochlorothiazide 12.5 Mg Tablet) 12.5 mg PO DAILY [facility]; Protocol Last Admin: 11/13/23 09:05 Dose: 12.5 mg Documented By: ROSMERY Azithromycin 500 mg/ Sodium (Chloride) 250 mls @ 125 mls/hr IV Q24H [facility] Last Infusion: 11/12/23 13:35 Dose: Infused Documented By: ANGIE Methylprednisolone Sodium Succinate (Methylprednisolone Sod Succ 40 Mg/Ml Vial) 40 mg IVPUSH Q12H [facility] Last Admin: 11/13/23 09:04 Dose: 40 mg Documented By: ROSMERY Morphine Sulfate (Morphine Sulfate Er 15 Mg Tablet.Er) 15 mg PO BID [facility] Last Admin: 11/13/23 09:04 Dose: 15 mg Documented By: ROSMERY Multivitamins/Vitamin C (Multivitamin Tablet) 1 tab PO DAILY [facility] Last Admin: 11/13/23 09:05 Dose: 1 tab Documented By: ROSMERY Naloxone HCl (Naloxone Hcl 0.4 Mg/Ml Vial) 0.4 mg SUBCUT Q3M PRN PRN Reason: overdose Ondansetron HCl (Ondansetron Hcl 4 Mg/2 Ml Vial) 4 mg IVPUSH Q8H PRN PRN Reason: Nausea and Vomiting Oseltamivir Phosphate (Oseltamivir Phosphate 75 Mg Capsule) 75 mg PO Q12H [facility] Stop: 11/15/23 21:01 Last Admin: 11/13/23 09:05 Dose: 75 mg Documented By: ROSMERY Oxycodone HCl (Oxycodone Hcl Immed Release 5 Mg Tablet) 10 mg PO QID PRN PRN Reason: Pain, Severe (Pain Scale 7-10) Last Admin: 11/13/23 09:15 Dose: 10 mg Documented By: ROSMERY Senna (Sennosides 8.6 Mg Tablet) 17.2 mg PO BEDTIME PRN PRN Reason: Constipation Sodium Chloride (0.9 % Sodium Chloride Flush 3 Ml Syringe) 3 ml IVFLUSH QSHIFT [facility] Last Admin: 11/13/23 09:05 Dose: 3 ml Documented By: ROSMERY Tiotropium [place] (Tiotropium [place] 2.5 Mcg 1 Puff/2.5 Mcg Mist.Inhal) 2 puff INHALE DAILY [facility] Last Admin: 11/13/23 08:17 Dose: 2 puff Documented By: ANAIS Labs 11/12/23 06:04 11/12/23 06:04 Microbiology Microbiology Results: Microbiology 11/11/23 10:53 Blood Culture - Preliminary Blood - Venous No growth after 24 hours. 11/11/23 10:42 Blood Culture - Preliminary Blood - Venous No growth after 24 hours. Assessment and Plan (1) Influenza A: Status: Acute (2) Hypoxia: Status: Acute (3) Acute exacerbation of chronic obstructive pulmonary disease: Status: Acute Plan 68 year old female with history of chronic low back pain, opioid dependence, htn, copd not on home O2 admitted for acute hypoxemic respiratory failure due to influenza A and copd exacerbation #Acute hypoxemic respiratory failure due to influenza A and COPD exacerbation--improving slowly, -Tamiflu for influenza x 5 days -Bronchodilators by Neb -IV steroid -Empiric Azithro for pleotropic effect -wean off O2 #Polyuria--UA is negative #HTN--reasonable control, continue HCTZ and Norvasc #chronic low back pain on chronic opioids -continue ms contin, oxycodone dvt prophylaxis- lovenox full code need for inpatient: management for acute hypoxic resp failure needing O2 and IV steroid. discharge later today if wheezing improves and Off O2 Quality Stroke Does the patient have a stroke diagnosis?: No VTE Prior VTE?: No VTE Risk Level:: Medical - moderate - high VTE Device Contraindication: Treatment Not Indicated VTE Drug Contraindication: N/A - Med Ordered
[2023-11-13] MEDS: Azithromycin 500 MG in 0.9 % Sodium Chloride 250 ML 125 MG IV (11:24)
[2023-11-13] MEDS: Enoxaparin Sodium 40 MG/0.4 ML SYRINGE SUBCUT (12:15)
[2023-11-13] MEDS: Acetaminophen 325 MG TABLET 650 MG PO (14:31)
--- NOTE | 2023-11-13 21:19 | PC.NURSE ---
pt requested guafinesin for non productive cough
[2023-11-14] VITALS (12 sets, daily range): BP systolic 146–184; BP diastolic 64–93; PULSE 89–104; RESP 14–22; TEMP 36.1–36.6; O2SAT 84–95
[2023-11-14] MEDS: guaiFENesin 200 MG/10 ML 10 ML LIQUID PO ×4 (03:52→22:10)
[2023-11-14] MEDS: oxyCODONE HCl Immed Release 5 MG TABLET 10 MG PO ×4 (03:52→22:11)
[2023-11-14] MEDS: Acetaminophen 325 MG TABLET 650 MG PO (06:14)
[2023-11-14] MEDS: Tiotropium Bromide 2.5 mcg 1 PUFF/2.5 MCG MIST.INHAL 2 PUFF INHALE (07:36)
[2023-11-14] MEDS: Fluticasone/Vilanterol 200/25 BLST.W.DEV 1 PUFF INHALE (07:36)
[2023-11-14] MEDS: Albuterol/Iprat 2.5/0.5MG 3 ML AMPUL.NEB INHALE ×4 (07:36→19:24)
[2023-11-14] MEDS: Oseltamivir Phosphate 75 MG CAPSULE PO ×2 (09:25→22:11)
[2023-11-14] MEDS: methylPREDNISolone Sod Succ 40 MG/ML VIAL IVPUSH (09:25)
[2023-11-14] MEDS: hydroCHLOROthiazide 25 MG TABLET PO (09:25)
[2023-11-14] MEDS: Morphine Sulfate ER 15 MG TABLET.ER PO ×2 (09:25→22:11)
[2023-11-14] MEDS: Docusate Sodium 100 MG CAPSULE PO (09:25)
[2023-11-14] MEDS: 0.9 % Sodium Chloride Flush 3 ML SYRINGE IVFLUSH ×2 (09:26→16:22)
[2023-11-14] MEDS: amLODIPine Besylate 10 MG TABLET PO (09:26)
--- NOTE | 2023-11-14 10:51 | P.PNIM_ITS ---
Subjective Subjective Date of Service: 11/14/23 Interval History: f/u on acute hypoxic resp failure due to influenza causing copd exacerbation, overall improving, and feels better today Physical Exam 2 Vital Signs: Vital Signs: Last Vital Signs Temp 97.0 F 11/14/23 07:56 Pulse 90 11/14/23 10:02 Resp 22 H 11/14/23 10:02 BP 158/88 H 11/14/23 10:02 Pulse Ox 92 11/14/23 10:02 O2 Del Method Room Air 11/14/23 10:02 O2 Flow Rate 2.0 11/14/23 07:56 BMI result Body Mass Index 27.2 Objective Data Active Medications Acetaminophen (Acetaminophen 325 Mg Tablet) 650 mg PO Q6H PRN PRN Reason: Pain, Mild (Pain Scale 1-3) Last Admin: 11/14/23 06:14 Dose: 650 mg Documented By: SOPHIE Albuterol Sulfate (Albuterol Sulfate 90 Mcg 8 Gm Inhaler) 2 puff INHALE Q4H PRN PRN Reason: shortness of breath or wheezing Albuterol/Ipratropium (Albuterol/Iprat 2.5/0.5mg 3 Ml Ampul.Neb) 3 ml INHALE RQ4H WHILE AWAKE [facility] Last Admin: 11/14/23 07:36 Dose: 3 ml Documented By: ROMA Albuterol/Ipratropium (Albuterol/Iprat 2.5/0.5mg 3 Ml Ampul.Neb) 3 ml INHALE QID PRN PRN Reason: Wheezing Amlodipine Besylate (Amlodipine Besylate 10 Mg Tablet) 10 mg PO DAILY [facility]; Protocol Last Admin: 11/14/23 09:26 Dose: 10 mg Documented By: ROSMERY Docusate Sodium (Docusate Sodium 100 Mg Capsule) 100 mg PO DAILY [facility] Last Admin: 11/14/23 09:25 Dose: 100 mg Documented By: ROSMERY Enoxaparin Sodium (Enoxaparin Sodium 40 Mg/0.4 Ml Syringe) 40 mg SUBCUT Q24H [facility] Last Admin: 11/13/23 12:15 Dose: 40 mg Documented By: KELLY Fluticasone/Vilanterol (Fluticasone/Vilanterol 200/25 Blst.W.Dev) 1 puff INHALE RDAILY [facility] Last Admin: 11/14/23 07:36 Dose: 1 puff Documented By: ROMA Guaifenesin (Guaifenesin 200 Mg/10 Ml 10 Ml Liquid) 10 ml PO Q4H PRN PRN Reason: Cough Last Admin: 11/14/23 09:25 Dose: 10 ml Documented By: ROSMERY Hydrochlorothiazide (Hydrochlorothiazide 25 Mg Tablet) 25 mg PO DAILY [facility]; Protocol Last Admin: 11/14/23 09:25 Dose: 25 mg Documented By: ROSMERY Azithromycin 500 mg/ Sodium (Chloride) 250 mls @ 125 mls/hr IV Q24H [facility] Last Infusion: 11/13/23 13:29 Dose: Infused Documented By: ROSMERY Methylprednisolone Sodium Succinate (Methylprednisolone Sod Succ 40 Mg/Ml Vial) 40 mg IVPUSH Q12H [facility] Last Admin: 11/14/23 09:25 Dose: 40 mg Documented By: ROSMERY Morphine Sulfate (Morphine Sulfate Er 15 Mg Tablet.Er) 15 mg PO BID [facility] Last Admin: 11/14/23 09:25 Dose: 15 mg Documented By: ROSMERY Multivitamins/Vitamin C (Multivitamin Tablet) 1 tab PO DAILY [facility] Last Admin: 11/14/23 09:55 Dose: Not Given Documented By: ROSMERY Non-Admin Reason: Med Not Available Naloxone HCl (Naloxone Hcl 0.4 Mg/Ml Vial) 0.4 mg SUBCUT Q3M PRN PRN Reason: overdose Ondansetron HCl (Ondansetron Hcl 4 Mg/2 Ml Vial) 4 mg IVPUSH Q8H PRN PRN Reason: Nausea and Vomiting Oseltamivir Phosphate (Oseltamivir Phosphate 75 Mg Capsule) 75 mg PO Q12H [facility] Stop: 11/15/23 21:01 Last Admin: 11/14/23 09:25 Dose: 75 mg Documented By: ROSMERY Oxycodone HCl (Oxycodone Hcl Immed Release 5 Mg Tablet) 10 mg PO QID PRN PRN Reason: Pain, Severe (Pain Scale 7-10) Last Admin: 11/14/23 09:57 Dose: 10 mg Documented By: ROSMERY Senna (Sennosides 8.6 Mg Tablet) 17.2 mg PO BEDTIME PRN PRN Reason: Constipation Sodium Chloride (0.9 % Sodium Chloride Flush 3 Ml Syringe) 3 ml IVFLUSH QSHIFT [facility] Last Admin: 11/14/23 09:26 Dose: 3 ml Documented By: ROSMERY Tiotropium [place] (Tiotropium [place] 2.5 Mcg 1 Puff/2.5 Mcg Mist.Inhal) 2 puff INHALE DAILY [facility] Last Admin: 11/14/23 07:36 Dose: 2 puff Documented By: ROMA Labs 11/12/23 06:04 11/12/23 06:04 Microbiology Microbiology Results: Microbiology 11/11/23 10:53 Blood Culture - Preliminary Blood - Venous No growth after 48 hours. 11/11/23 10:42 Blood Culture - Preliminary Blood - Venous No growth after 48 hours. Assessment and Plan (1) Influenza A: Status: Acute (2) Hypoxia: Status: Acute (3) Acute exacerbation of chronic obstructive pulmonary disease: Status: Acute Plan 68 year old female with history of chronic low back pain, opioid dependence, htn, copd not on home O2 admitted for acute hypoxemic respiratory failure due to influenza A and copd exacerbation #Acute hypoxemic respiratory failure due to influenza A and COPD exacerbation--improving slowly, -Tamiflu for influenza x 5 days -Bronchodilators by Neb -IV steroid to PO steroid today -Empiric Azithro for pleotropic effect -wean off O2 and consider home O2 #Polyuria--UA is negative #HTN--reasonable control, continue HCTZ increase to 25, and Norvasc #chronic low back pain on chronic opioids -continue ms contin, oxycodone dvt prophylaxis- lovenox full code need for inpatient: management for acute hypoxic resp failure needing O2 and IV steroid. reassess for discharge later today Quality Stroke Does the patient have a stroke diagnosis?: No VTE Prior VTE?: No VTE Risk Level:: Medical - moderate - high VTE Device Contraindication: Treatment Not Indicated VTE Drug Contraindication: N/A - Med Ordered
[2023-11-14] MEDS: predniSONE 20 MG TABLET PO (11:36)
[2023-11-14] MEDS: Multivitamin TABLET 1 TAB PO (11:37)
[2023-11-14] MEDS: Azithromycin 500 MG in 0.9 % Sodium Chloride 250 ML 125 MG IV (11:37)
[2023-11-14] MEDS: Enoxaparin Sodium 40 MG/0.4 ML SYRINGE SUBCUT (13:34)
--- NOTE | 2023-11-14 22:08 | SUR.OPER ---
Patient requested Guafenessin for cough
[2023-11-15] MEDS: 0.9 % Sodium Chloride Flush 3 ML SYRINGE IVFLUSH ×2 (00:40→07:19)
[2023-11-15 03:21] VITALS: BP 165/82; PULSE 79; RESP 16; TEMP 36.2; O2SAT 95
[2023-11-15] MEDS: Acetaminophen 325 MG TABLET 650 MG PO (07:17)
[2023-11-15] MEDS: Morphine Sulfate ER 15 MG TABLET.ER PO (07:17)
[2023-11-15] MEDS: oxyCODONE HCl Immed Release 5 MG TABLET 10 MG PO (07:17)
[2023-11-15] MEDS: Docusate Sodium 100 MG CAPSULE PO (07:18)
[2023-11-15] MEDS: amLODIPine Besylate 10 MG TABLET PO (07:18)
[2023-11-15] MEDS: hydroCHLOROthiazide 25 MG TABLET PO (07:18)
[2023-11-15] MEDS: predniSONE 20 MG TABLET PO (07:18)
[2023-11-15] MEDS: Multivitamin TABLET 1 TAB PO (07:19)
[2023-11-15] MEDS: Oseltamivir Phosphate 75 MG CAPSULE PO (07:19)
[2023-11-15] MEDS: Tiotropium Bromide 2.5 mcg 1 PUFF/2.5 MCG MIST.INHAL 2 PUFF INHALE (07:28)
[2023-11-15] MEDS: Fluticasone/Vilanterol 200/25 BLST.W.DEV 1 PUFF INHALE (07:28)
[2023-11-15 07:29] VITALS: PULSE 90; RESP 16; O2SAT 90
[2023-11-15] MEDS: Albuterol/Iprat 2.5/0.5MG 3 ML AMPUL.NEB INHALE ×2 (07:29→11:28)
[2023-11-15 07:32] VITALS: BP 176/87; PULSE 88; RESP 18; TEMP 36.1; O2SAT 97
[2023-11-15 07:41] VITALS: PULSE 101; PULSE 90; PULSE 96; PULSE 97; O2SAT 85; O2SAT 86; O2SAT 90; O2SAT 92; O2SAT 93
[2023-11-15] MEDS: guaiFENesin 200 MG/10 ML 10 ML LIQUID PO (09:35)
--- NOTE | 2023-11-15 10:46 | MHC.CM.PN ---
EMR REVIEWED. PER MD ROUNDS PATIENT IS MEDICALLY CLEARED FOR DC HOME, SELF CARE W/ NEW O2 VIA [facility]. O2 DELIVERED BY RESPIRATORY. AT BEDSIDE TO TRANSPORT. IMM DELIVERED. DID NOT BRING COPY OF HCP. DOES NOT WISH TO FILL OUT A NEW COPY AT [facility] [place]. WILL BRING HCP NEXT VISIT.
[2023-11-15 11:29] VITALS: PULSE 88; RESP 18; O2SAT 92
--- NOTE | 2023-11-15 12:14 | PM.DS ---
DS: Providers Provider Date of Service: 11/15/23 Date of admission: 11/11/23 12:32 Primary care physician: Lonny Bentley MD DS: Diagnosis Discharge Diagnosis (1) Influenza A: Status: Acute (2) Hypoxia: Status: Acute (3) Acute exacerbation of chronic obstructive pulmonary disease: Status: Acute DS: Summary Hospital Course Hospital Course: admission hpi Chief Complaint: sob 68 year old female with history of chronic low back pain, opioid dependence, htn, copd not on home O2 presented to the ED earlier today for evaluation of dyspnea. Reports has had dyspnea both at rest and with exertion progressively worsening since saturday. Has chronic cough with clear sputum production that has not changed in quality or severity. Was recently [place] a cruise [place] and grandson is sick with URI symptoms. No fevers, chills, st, congestion, abd pain, n/v/d, palpitations, lightheadedness, or chest pain. She does endorse polyuria but no dysuria, hematuria, or urgency. On arrival, VS stable. has developed mild tachycardia following albuterol administration. Hypoxia to the 70s with little exertion now on 3L supplemental O2 maintaining oximetry 93%. No leukocytosis. Renal function normal, lytes normal except co2 32. Initial lactic acid 2.2. AST 38/ALT 44. Trop below detectable limits, BNP 35. PCT 0.03. Positive for influenza A, negative rsv, covid 19. CXr shows emphysematous changes and a few scattered linear opacitis/atelectasis. NO evidence of pneumonia. In the ED, given duoneb, 500ml IVNS, tamiflu, zithromax, solumedrol, and levalbuterol. hospital course: Patient with history of remote smoking, copd not on home O2 and presented with SOB, hypoxia. CXR showed chronic emphysematous changes, she tested positive for influenza, she was wheezing and her overall clinical presentation was consistent with acute exacerbation of copd brought on by Influenza. She was treated with oxygen, bronchodilators by Neb, IV corticosteroid, Tamiflu and empiric Azithromycin. She has overall improved, and feels much better but still has some level of hypoxia, worse with activity. She has been assess and qualifies for home O2 at 2 liters resting and 4 liters with activity, she will be discharge to complete 3 more days of steroid with prednisone 40 daily, to complete 5 days of tamiflu, she has completed 5 days of azithro. Her need for O2 may improve or entirely go away once fully recovered from the acute influenza Time Attestation Discharge Coordination Time (in mins): 35 Quality: Safe Use of Opioids Does Pt have an Active Cancer Diagnosis on the Problem List?: No Quality: Stroke Does the patient have a stroke diagnosis?: No Physical Exam Vital Signs: Vital Signs: Last Vital Signs Temp 96.9 F 11/15/23 07:32 Pulse 88 11/15/23 11:29 Resp 18 11/15/23 11:29 BP 176/87 H 11/15/23 07:32 Pulse Ox 97 11/15/23 07:32 O2 Del Method Nasal Cannula 11/15/23 07:32 O2 Flow Rate 1 11/15/23 07:32 BMI result Body Mass Index 27.2 General: AO X 3, no acute distress Resp: some rhonchid, no increase wob CVS: S1,S2,RRR GI: +BS, NT, no distention Skin: No rash Neuro: motor grossly intact Psych: appropriate affect DS: Data Data Completed and Pending Labs on day of discharge: Preliminary micro results at discharge 11/11/23 10:53 Blood Culture - Preliminary Blood - Venous No growth after 48 hours. 11/11/23 10:42 Blood Culture - Preliminary Blood - Venous No growth after 48 hours. Discharge Plan Discharge Anticipated Discharge Date/Time: 11/15/23 12:01 Patient Disposition: Home, Self-Care Discharge Diagnosis: Influenza, COPD exacerbartion Referrals: Lonny Bentley MD [Primary Care Provider] - 1 Week Discharge Medications: New prednisone 20 mg tablet 40 mg PO DAILY Qty: 6 0RF oseltamivir [Tamiflu] 75 mg Capsule 75 mg PO Q12H Qty: 1 0RF Rx Instructions: has received 9 doses in the hospital, needs one dose tonight Continued morphine 15 mg Tablet Extended Release 15 mg PO BID hydrochlorothiazide 12.5 mg Tablet 12.5 mg PO DAILY oxycodone 10 mg Tablet 10 mg PO QID PRN (Reason: Pain, Moderate) multivitamin Tablet 1 tab PO DAILY ipratropium-albuterol 0.5 mg-3 mg(2.5 mg base)/3 mL Solution For Nebulization 3 ml INHALATION QID PRN (Reason: Wheezing) ibuprofen 800 mg Tablet 800 mg PO TID PRN (Reason: Pain) naloxone 0.4 mg/mL Solution 0.4 mg SUBCUT Q3M PRN (Reason: overdose) Rx Instructions: NTExceed 10 mg total dose/episode alendronate 70 mg Tablet 70 mg PO MO Rx Instructions: on mondays amlodipine 10 mg Tablet 10 mg PO DAILY fluticasone propion-salmeterol [Wixela Inhub] 500-50 mcg/dose Blister With Device 1 inh INHALATION BID docusate sodium 100 mg Capsule 100 mg PO DAILY Spiriva Respimat 2.5 mcg/actuation Mist 2 puff INHALATION DAILY albuterol sulfate 90 mcg/actuation HFA aerosol inhaler 2 puff inhalation Q4H PRN (Reason: shortness of breath or wheezing) Discharge Orders: Discharge Order (Routine); Ordered 11/15/23 Ordered By: Robby Shelby Diet: Advance to usual diet Activity on Discharge: As tolerated Stand Alone Forms: Patient Portal Discharge page Care Plan Goals: recovery from influenza and copd exacerbation Health Concerns: Exacerbation, influenza, acute hypoxic respiratory failure Plan of Treatment: use inhalers as previously take prednisone as directed complete Tamiflu use oxygen as directed 2 L at rest and 4 L with activity follow-up with your primary care doctor within a week. Call for appointment. Assessment: See above Patient Instructions: Influenza (DC)
[2023-11-15] MEDS: Azithromycin 500 MG TABLET PO (12:26)
== END 2023-11-15 12:55 | disposition home or self-care (01) | DRG 193 ==
LOC: HO.ED 11:47 → HO.EDOVER 12:40 → HO.S3 15:01
PROVIDERS: Admitting Provider Physician Assistant; Emergency Provider Emergency Medicine; PCP Family Medicine; Visit Provider Internal Medicine
DX: J10.1 Influenza due to other identified influenza virus with other respiratory manifestations (principal); J96.01 Acute respiratory failure with hypoxia; F11.20 Opioid dependence, uncomplicated; J44.1 Chronic obstructive pulmonary disease with (acute) exacerbation; I10 Essential (primary) hypertension; G89.29 Other chronic pain; M54.50 Low back pain, unspecified; Z20.822 Contact with and (suspected) exposure to COVID-19; Z87.891 Personal history of nicotine dependence
CPT/HCPCS: 0241U; 36415; 71045; 80048; 80076; 81003; 83605; 83735; 83880; 84145; 84484; 85025; 87040; 93005; 94640; 99285; J0456; J1650; J2920; J2930

== ENCOUNTER → 2023-11-11 09:58 | Outpatient (BNV) | payer MEDICARE, OTHER, SELFPAY | PROVIDERS: Admitting Provider Physician Assistant; Emergency Provider Emergency Medicine; PCP Family Medicine; Visit Provider Internal Medicine Cardiovascular Disease | DX: R06.00 Dyspnea, unspecified (principal) | CPT/HCPCS: 93010 ==

== ENCOUNTER → 2023-11-11 12:32 | Outpatient (BNV) | payer MEDICARE, OTHER, SELFPAY | PROVIDERS: Admitting Provider Physician Assistant; Emergency Provider Emergency Medicine; PCP Family Medicine; Visit Provider Physician Assistant | DX: J96.01 Acute respiratory failure with hypoxia (principal); J44.1 Chronic obstructive pulmonary disease with (acute) exacerbation; J10.1 Influenza due to other identified influenza virus with other respiratory manifestations | CPT/HCPCS: 99223; 99232; 99239 ==

== ENCOUNTER 2023-11-27 10:10 | Outpatient (AMB) | payer MEDICARE, OTHER, SELFPAY ==
[2023-11-27 10:52] VITALS: BP 134/72; PULSE 78; O2SAT 94; BMI 26.6
--- NOTE | 2023-11-27 10:52 | MHC.OFFVIS ---
Intake Vital Signs 11/27/23 10:52 Height 5 ft 4 in Weight 155 lb BMI 26.6 BP 134/72 Blood Pressure Location Rt brachial Position Sitting Pulse 78 Pulse Source Pulse Oximeter Pulse Oximetry (%) 94 Oxygen Delivery Method Room Air Intake Visit Reasons: chronic obstructive lung disease Process Control Manager Required: No Parking Inspector: Parking Inspector offered & declined Accompanied by: Spouse Allergies No Known Allergies Allergy (Verified 11/27/23 10:57) Medication List - Last Reconciled 11/27/23 by Nany Jones LPN albuterol sulfate 90 mcg/actuation 2 puffs inhalation Q4H PRN alendronate 70 mg PO MO amlodipine 10 mg PO DAILY docusate sodium 100 mg PO DAILY fluticasone propion-salmeterol 500-50 mcg/dose (Salvador Foy) 1 inh inhalation BID hydrochlorothiazide 12.5 mg PO DAILY ibuprofen 800 mg PO TID PRN ipratropium-albuterol 0.5 mg-3 mg(2.5 mg base)/3 mL 3 mL inhalation QID PRN morphine ER 15 mg PO BID multivitamin 1 tab PO DAILY naloxone 0.4 mg subcut Q3M PRN oseltamivir (Tamiflu) 75 mg PO Q12H oxycodone 10 mg PO QID PRN tiotropium bromide 2.5 mcg/actuation (Spiriva Respimat) 2 puffs inhalation DAILY HPI chronic obstructive lung disease HPI Details Bernie is a pleasant 68 year old female, former smoker with 30 pack year history, quit 18 yrs ago, with underlying COPD, asthma and h/o acute respiratory failure with hypoxemia. She was referred by PCP for pulmonary evaluation. She was recently discharged from [facility] for acute on chronic respiratory failure with hypoxia secondary to influenza. She was treated with nebs, oxygen, Tamiflu and azithromycin. She was discharged on supplemental oxygen and is currently using 2 L and feels she is almost back to her baseline. Prior to admission patient is well controlled on Spiriva, Advair 500 and duoneb PRN. She had trialed Trelegy in the past with suboptimal response. She also reports being quite active walking 4-5 miles per day. She reports intermittent productive cough, occasional wheezing and dyspnea with moderate exertion. Reports mother, smoker with COPD and daughter with asthma. She denies any occupational exposures. ON LICENSE OF [facility] Medical History (Updated 11/27/23 @ 19:59 by Maira Fuller NP) COPD (chronic obstructive pulmonary disease) Opioid dependence Chronic low back pain Pulmonary nodule Social History (Updated 11/27/23 @ 11:02 by Nany Jones LPN) Household Members: Family Housing: House Do you presently have visiting nurse or other home services: No Patient Tobacco Use Status: Former Tobacco user Tobacco use type: Cigarette Cigarette Packs Per Day: 1 Years Smoked: 30 service: No Current occupational status: retired Review of Systems Const Denies chills, Denies excessive sweating, Denies fever(s), Denies headache(s) and Denies night sweats Eyes Denies dry eyes, Denies irritation and Denies itchy eyes ENT Reports Normal hearing present, Denies headache(s), Denies nasal congestion, Denies nasal discharge, Denies post nasal drip and Denies sore throat Card Denies chest pain, Denies chest pain at rest, Denies chest pain with activity, Denies claudication, Denies leg edema, Denies orthopnea and Denies paroxysmal nocturnal dyspnea Resp Denies chest congestion, Denies excessive phlegm production, Denies pain on inspiration, Denies pain with cough and Denies stridor Musc Denies myalgias Neuro Reports Normal hearing present and Denies headache(s) Endo Denies excessive sweating Miguel/Lymph Denies lymphadenopathy Aller/Immun Denies itchy eyes and Denies seasonal rhinorrhea Physical Exam Vital Signs: Last Vital Signs Pulse 78 11/27/23 10:52 BP 134/72 11/27/23 10:52 Pulse Ox 94 11/27/23 10:52 Oxygen Delivery Method Room Air 11/27/23 10:52 BMI result Body Mass Index 26.6 Const General: cooperative, healthy appearing, comfortable, no acute distress, well developed and alert Orientation/consciousness: patient oriented x3 Limitations: no limitations HEENT Head: Yes normal to inspection, Yes normocephalic and Yes atraumatic Ears: hearing grossly normal bilaterally and external ears normal Eyes General: appearance normal, both eyes and all related structures Eyelids: Yes eyelids normal Sclerae: sclerae normal EOM: EOMs intact bilaterally Neck Neck: Yes normal visual inspection and Yes no lymphadenopathy Lymphatic: no lymphadenopathy noted Chest Chest palpation & inspection: normal inspection of the chest Resp Other: significantly diminished lung sounds with expiratory wheezes, improved with duoneb Effort & Inspection: normal respiratory effort, able to speak in complete sentences, no audible wheezes, no stridor, not tachypneic, no tripod positioning and no use of accessory muscles Cardio Jugular venous distension: no JVD Rate: regular rate Rhythm: regular rhythm Skin Other: warm, dry General skin exam: no rashes or lesions noted Neuro General: patient oriented x3 Cranial nerves: Yes Normal hearing present Cognition (Neuro): normal cognition Gait exam (Neuro): Normal gait present Extrem General: Yes normal to inspection, Yes capillary refill normal, Yes no clubbing, cyanosis or edema and Yes no pedal edema Psych Appearance: grossly normal and well kempt Speech and movement: Normal speech and movement present and Clear speech present Affect: normal affect Attitude: cooperative Thought process: Normal thought process present Thought content: Normal thought content present Insight: Good insight present (Psych) Judgement: Good judgement present (Psych) Office Procedures Nebulizer Treatment Nebulizer Treatment [id number]/MDI RX initial, or Nebulizer Subsequent Treatment Office Meds ipratropium 0.5 mg-albuterol 3 mg (2.5 mg base)/3 mL nebulization soln Performing Provider: Maira Fuller NP Performing Location: [facility] Administered by: Nany Jones LPN on 11/27/23 11:47 Dose Route Admin Location Dispensed Lot Number Expiration Date [facility] Stret[employer] D[employer] Operator 3 mL inhalation 3 mL [id number] 07/02/25 99602-231-63 [employer] Results Reviewed Results Reviewed: [address] [address] [address] Scan Report Signed Patient: Bernie Oh MR#: [id number] : 1955 Acct:[id number] Age/Sex: 66 / F ADM Date: 05/20/22 Loc: .ED Attending Dr: Ordering Physician: Andrew Shaffer MD Date of Service: 05/20/22 Procedure(s): CT angio chest PE protocol Accession Number(s): [id number] cc: Andrew Shaffer MD~ EXAMINATION: CT ANGIOGRAM OF THE CHEST WITH AND WITHOUT CONTRAST (CT PULMONARY ANGIOGRAM FOR PE) CLINICAL INFORMATION: Reason for Exam sob with covid , copd COMPARISON: None TECHNIQUE: Prior to contrast administration, noncontrast localization images were obtained. Subsequently, multidetector volumetric imaging was performed from the thoracic inlet to below the diaphragms following the administration of 80 mL Omnipaque 350 intravenous contrast. No contrast reaction reported Sagittal, coronal, and MIP oblique sagittal reformatted images were obtained on the CT workstation, uploaded to PACS, and reviewed. This CT examination was performed using dose optimization techniques as appropriate, variously including the following: *Automated exposure control *Adjustment of mA and/or kV according to patient size (this includes techniques or standardized protocols for targeted exams where dose is matched to indication/reason for exam; i.e. extremities or head) *Use of iterative reconstruction technique Total exam dose-length product 228 mGy-cm FINDINGS: QUALITY OF STUDY/CONTRAST BOLUS: Satisfactory. PULMONARY ARTERIES: Motion degrades this study. There is no evidence for central embolism. Motion at the left base. I cannot exclude PE. Motion lingula. PE cannot be excluded. There is no bowing of the septum. There is no reflux into the liver. The thoracic inlet is within normal limits. The axillary regions are unremarkable. Partially visualized upper abdominal structures are within normal limits. Centrally no bulky mediastinal adenopathy. There is felt to be hilar adenopathy left and right. Imaging the lung garces. Right lung; There is COPD here. Right basilar atelectasis. 4 mm nodule on image 372 may represent a bronchial plug inferiorly. There is bronchial thickening at the bases. Probable bronchial plugging on image 353 of a segmental bronchus. Left lung; Again COPD. Atelectasis in the lingula and left base. Calcified Granuloma on image 238. Anterior. Again there is bronchial thickening. Difficult to evaluate due to motion at the left base. Review of the bone windows does not demonstrate evidence for bony lesion. CT/CT angio chest PE protocol IMPRESSION: Nondiagnostic left lingular and left lower lobe due to motion. I cannot rule out PE here. Otherwise no evidence of PE in the remainder of the lungs. There is significant COPD here. Bilateral basilar atelectasis. No large area of infiltrate. There is bronchial thickening throughout the lungs and several areas of bronchial plugging at the right base. Underlying bronchial lesion of course cannot be excluded. Recommend low-dose noncontrast CT in 3-6 months for continued evaluation VTE: indeterminate Dictated By: Barry Mcclellan MD Signed By: <Electronically signed by Barry Mcclellan MD in OV> 05/20/221945 Assessment & Plan Assessment & Plan (1) COPD (chronic obstructive pulmonary disease): Code(s): J44.9 - Chronic obstructive pulmonary disease, unspecified Qualifiers: COPD type: COPD with acute exacerbation Qualified Code(s): J44.1 - Chronic obstructive pulmonary disease with (acute) exacerbation (2) Pulmonary nodule: Code(s): R91.1 - Solitary pulmonary nodule (3) History of acute respiratory failure: Code(s): Z87.09 - Personal history of other diseases of the respiratory system Plan Bernie's symptoms are likely related to underlying COPD, unclear severity. Will send for PFT to evaluate. Will also send for chest CT, previous CT from 2021 revealed 4 mm nodule of right lobe. On exam patient with diminished lung sounds and wheezing throughout, will send prednisone. Patient is aware if symptoms do not improve to contact office or if they worsen to seek emergent care. She feels at baseline she is well controlled on current regimen, advised to continue Spiriva, Advair and DuoNebs p.r.n.. At this time patient still requires supplemental oxygen and is aware that she may continue to require, will perform 6MWT at next visit. All questions were answered and patient is in agreement of plan. Will follow-up to review results of CT and PFT. Orders: Orders AMB Nebulizer Treatment Today J44.9 - Chronic obstructive pulmonary disease, unspecified CT chest wo IV con Today R91.1 - Solitary pulmonary nodule PFT pulmonary function test Today J44.9 - Chronic obstructive pulmonary disease, unspecified Medications: New prednisone see taper instructions Take 4 pills daily for 5 days, then go down by 1 pill every 5 days; 20 days 50 tabs 0RF 10 mg PO DIRECTED 50 tabs 0RF Coding Level of Care Code New Pt Level 4 (83398) Diagnoses Chronic obstructive pulmonary disease with acute exacerbation J44.1 COPD type: COPD with acute exacerbation Pulmonary nodule R91.1 History of acute respiratory failure Z87.09 CPT Codes Nebulizer Treatment - Nebulizer Treatment, initial or subsequent: [id number]/MDI RX initial, or Nebulizer Subsequent Treatment ([id number])
== END 2023-11-27 11:54 | disposition home or self-care (01) ==
PROVIDERS: PCP Family Medicine; Visit Provider Nurse Practitioner Family
DX: J44.1 Chronic obstructive pulmonary disease with (acute) exacerbation (principal); R91.1 Solitary pulmonary nodule; Z87.09 Personal history of other diseases of the respiratory system; J44.9 Chronic obstructive pulmonary disease, unspecified
CPT/HCPCS: 99204

== ENCOUNTER → 2023-11-27 10:10 | Outpatient (BNVA) | payer MEDICARE, OTHER, SELFPAY | PROVIDERS: PCP Family Medicine; Visit Provider Nurse Practitioner Family | DX: J96.01 Acute respiratory failure with hypoxia (principal); J44.1 Chronic obstructive pulmonary disease with (acute) exacerbation; R91.1 Solitary pulmonary nodule; Z87.891 Personal history of nicotine dependence; Z99.81 Dependence on supplemental oxygen; Z79.891 Long term (current) use of opiate analgesic | CPT/HCPCS: 94640; 99202 ==

== ENCOUNTER 2024-01-21 12:14 | Outpatient (REF) | payer MEDICARE, OTHER, SELFPAY ==
--- NOTE | ~2024-01-21 | CT_ITS ---
EXAMINATION: CT CHEST WITHOUT CONTRAST CLINICAL INFORMATION: Pulmonary nodule COMPARISON: CT pulmonary angiogram on 05/20/2022 TECHNIQUE: Multidetector volumetric CT imaging of the chest was done. Axial MIP volume rendering provided. Sagittal and coronal reformatted images were obtained. This CT examination was performed using dose optimization techniques as appropriate, variously including the following: *Automated exposure control *Adjustment of mA and/or kV according to patient size (this includes techniques or standardized protocols for targeted exams where dose is matched to indication/reason for exam; i.e. extremities or head) *Use of iterative reconstruction technique DLP: 290.81 mGy-cm FINDINGS: LUNGS: Advanced emphysema with vascular distortion is seen in the right upper lobe. Paraseptal emphysematous bullae are present along the medial border of bilateral upper lobes. Paraseptal emphysema is also present in bilateral lower lobe superior segment. The rest of bilateral lungs show persistent confluent emphysema. Oblique coronal platelike atelectasis is seen in right lower lobe superior segment and posterior basal segment. Horizontal branching oblique atelectasis is seen in left lingular lobe. Horizontal platelike atelectasis is present in left lower lobe. Unchanged 2 mm micronodules are seen in right upper lobe posterior segment, series 4 image #250; posterior border of right middle lobe lateral segment, series 4 image #351. There is interval decrease in size of the subpleural subsegmental endobronchial lesion compatible with mucous plugging in right lower lobe lateral basal segment, series 4 image #422. There is interval resolution of the subsegmental endobronchial mucous plugging in the right lower lobe posterior basal segment. There is unchanged 2 mm calcified granuloma at anterior medial border of left upper lobe anterior segment, series 4 image #258. PLEURA: No pleural effusion or pneumothorax is seen. PERICARDIUM: No pericardial effusion is seen. MEDIASTINUM AND SWEETIE: Inadequate evaluation of the mediastinal and hilar lymph nodes due to absence of IV contrast filling the surrounding blood vessels. TRACHEOBRONCHIAL TREE: Trachea and bilateral mainstem bronchi are patent. THORACIC AORTA: The thoracic aorta is normal in size with scattered atherosclerotic calcifications. CORONARY ARTERY CALCIFICATIONS: Absent PULMONARY ARTERIES: The main pulmonary arteries appear to be normal in size. CHEST WALL AND LOWER NECK: The subcutaneous and muscular chest wall are intact with no focal lesion. No abnormal mass lesion could be seen in the visualized lower neck. BONES: No fracture or dislocation. No focal bone lesion diagnostic of metastatic disease could be seen in the thorax. VISUALIZED UPPER ABDOMEN: Unremarkable. CT/CT chest wo IV con IMPRESSION: 1. Unchanged Advanced emphysema with vascular distortion in the right upper lobe and bilateral lower lobe superior segment paraseptal emphysema and diffuse confluent emphysema in the rest of the lungs. 2. Unchanged 2 mm micronodules in right upper lobe and right middle lobe. 3. Interval decrease in size of the subpleural subsegmental endobronchial lesion compatible with mucous plugging in right lower lobe lateral basal segment. 4. Interval resolution of the subsegmental endobronchial mucous plugging in the right lower lobe posterior basal segment. 5. Interval decrease in bilateral lower lobe endobronchial mucous plugging and bronchial wall thickening. 6. Persistent bilateral lower lobe and left lingular lobe platelike atelectasis. 7. No evidence of suspicious lung lesion. Fleischner guidelines were followed.
== END 2024-01-21 12:15 | disposition home or self-care (01) ==
LOC: HO.CT 12:14
PROVIDERS: PCP Family Medicine; Visit Provider Nurse Practitioner Family
DX: R91.1 Solitary pulmonary nodule (principal)
CPT/HCPCS: 71250

== ENCOUNTER 2024-02-11 11:10 | Outpatient (AMB) | payer MEDICARE, OTHER, SELFPAY ==
--- NOTE | 2024-02-11 11:19 | MHC.OFFVIS ---
Vital Signs 02/11/24 11:20 Height 5 ft 4 in Weight 153 lb 4 oz BMI 26.3 BP 128/76 Blood Pressure Location Rt brachial Position Sitting Pulse 91 Pulse Source Pulse Oximeter Pulse Oximetry (%) 94 Oxygen Delivery Method Room Air Intake Visit Reasons: COPD Allergies No Known Allergies Allergy (Verified 02/11/24 11:23) HPI HPI COPD: Details: Bernie is a pleasant 68 year old female, former smoker with 30 pack year history, quit 18 yrs ago, with underlying COPD, asthma and h/o acute respiratory failure with hypoxemia. In October she was admitted to [facility] for acute on chronic respiratory failure with hypoxia secondary to influenza. She was treated with nebs, oxygen, Tamiflu and azithromycin. She was discharged on supplemental oxygen and is currently using 2 L. She reports being well controlled on Spiriva, Advair 500 and duoneb QD. She had trialed Trelegy in the past with suboptimal response. She continues to report being quite active walking 4-5 miles per day. Today she presents to review chest CT. She was also sent for PFT however canceled appointment is not interested in rescheduling at this time. Since the last visit she has tapered herself off of supplemental oxygen and returned equipment to [facility] [place]. She reports oxygen saturation maintains around 90-92% occasionally 94% on on room air. She continues to report intermittent productive cough, occasional wheezing and dyspnea with moderate exertion. [facility] Medical History (Updated 12/05/23 @ 00:03 by Chavo Chamberlain) COPD (chronic obstructive pulmonary disease) Opioid dependence Chronic low back pain Pulmonary nodule Social History (Reviewed 02/11/24 @ 11:23 by Ginny Morales [facility] [address]) Household Members: Family Housing: House Do you presently have visiting nurse or other home services: No Patient Tobacco Use Status: Former Tobacco user Tobacco use type: Cigarette Cigarette Packs Per Day: 1 Years Smoked: 30 service: No Current occupational status: retired Review of Systems Const Denies chills, Denies excessive sweating, Denies fever(s), Denies headache(s) and Denies night sweats Eyes Denies dry eyes, Denies irritation and Denies itchy eyes ENT Reports Normal hearing present, Denies headache(s), Denies nasal congestion, Denies nasal discharge, Denies post nasal drip and Denies sore throat Card Denies chest pain, Denies chest pain at rest, Denies chest pain with activity, Denies claudication, Denies leg edema, Denies orthopnea and Denies paroxysmal nocturnal dyspnea Resp Denies chest congestion, Denies excessive phlegm production, Denies pain on inspiration, Denies pain with cough and Denies stridor Musc Denies myalgias Neuro Reports Normal hearing present and Denies headache(s) Endo Denies excessive sweating Miguel/Lymph Denies lymphadenopathy Aller/Immun Denies itchy eyes and Denies seasonal rhinorrhea Physical Exam Vital Signs: Last Vital Signs Pulse 91 02/11/24 11:20 BP 128/76 02/11/24 11:20 Pulse Ox 94 02/11/24 11:20 Oxygen Delivery Method Room Air 02/11/24 11:20 BMI result Body Mass Index 26.3 Const General: cooperative, healthy appearing, comfortable, no acute distress, well developed and alert Orientation/consciousness: patient oriented x3 Limitations: no limitations HEENT Head: Yes normal to inspection, Yes normocephalic and Yes atraumatic Ears: hearing grossly normal bilaterally and external ears normal Eyes General: appearance normal, both eyes and all related structures Eyelids: Yes eyelids normal Sclerae: sclerae normal EOM: EOMs intact bilaterally Neck Neck: Yes normal visual inspection and Yes no lymphadenopathy Lymphatic: no lymphadenopathy noted Chest Chest palpation & inspection: normal inspection of the chest Resp Effort & Inspection: normal respiratory effort, able to speak in complete sentences, no stridor, not tachypneic, no tripod positioning and no use of accessory muscles Auscultation: no wheezes and diminished lung sounds Cardio Jugular venous distension: no JVD Rate: regular rate Rhythm: regular rhythm Skin Other: warm, dry General skin exam: no rashes or lesions noted Neuro General: patient oriented x3 Cranial nerves: Yes Normal hearing present Cognition (Neuro): normal cognition Gait exam (Neuro): Normal gait present Extrem General: Yes normal to inspection, Yes capillary refill normal, Yes no clubbing, cyanosis or edema and Yes no pedal edema Psych Appearance: grossly normal and well kempt Speech and movement: Normal speech and movement present and Clear speech present Affect: normal affect Attitude: cooperative Thought process: Normal thought process present Thought content: Normal thought content present Insight: Good insight present (Psych) Judgement: Good judgement present (Psych) Results Reviewed Results Reviewed: [place] [address] [address] Scan Report Signed Patient: Bernie Oh MR#: [id number] : 1955 Acct:[id number] Age/Sex: 68 / F ADM Date: 01/21/24 Loc: HO.CT Attending Dr: Maira Fuller NP Ordering Physician: Maira Fuller NP Date of Service: 01/21/24 Procedure(s): CT chest wo IV con Accession Number(s): [id number] cc: VICKY STOUT MD; Maira Fuller NP~ EXAMINATION: CT CHEST WITHOUT CONTRAST CLINICAL INFORMATION: Pulmonary nodule COMPARISON: CT pulmonary angiogram on 05/20/2022 TECHNIQUE: Multidetector volumetric CT imaging of the chest was done. Axial MIP volume rendering provided. Sagittal and coronal reformatted images were obtained. This CT examination was performed using dose optimization techniques as appropriate, variously including the following: *Automated exposure control *Adjustment of mA and/or kV according to patient size (this includes techniques or standardized protocols for targeted exams where dose is matched to indication/reason for exam; i.e. extremities or head) *Use of iterative reconstruction technique DLP: 290.81 mGy-cm FINDINGS: LUNGS: Advanced emphysema with vascular distortion is seen in the right upper lobe. Paraseptal emphysematous bullae are present along the medial border of bilateral upper lobes. Paraseptal emphysema is also present in bilateral lower lobe superior segment. The rest of bilateral lungs show persistent confluent emphysema. Oblique coronal platelike atelectasis is seen in right lower lobe superior segment and posterior basal segment. Horizontal branching oblique atelectasis is seen in left lingular lobe. Horizontal platelike atelectasis is present in left lower lobe. Unchanged 2 mm micronodules are seen in right upper lobe posterior segment, series 4 image #250; posterior border of right middle lobe lateral segment, series 4 image #351. There is interval decrease in size of the subpleural subsegmental endobronchial lesion compatible with mucous plugging in right lower lobe lateral basal segment, series 4 image #422. There is interval resolution of the subsegmental endobronchial mucous plugging in the right lower lobe posterior basal segment. There is unchanged 2 mm calcified granuloma at anterior medial border of left upper lobe anterior segment, series 4 image #258. PLEURA: No pleural effusion or pneumothorax is seen. PERICARDIUM: No pericardial effusion is seen. MEDIASTINUM AND SWEETIE: Inadequate evaluation of the mediastinal and hilar lymph nodes due to absence of IV contrast filling the surrounding blood vessels. TRACHEOBRONCHIAL TREE: Trachea and bilateral mainstem bronchi are patent. THORACIC AORTA: The thoracic aorta is normal in size with scattered atherosclerotic calcifications. CORONARY ARTERY CALCIFICATIONS: Absent PULMONARY ARTERIES: The main pulmonary arteries appear to be normal in size. CHEST WALL AND LOWER NECK: The subcutaneous and muscular chest wall are intact with no focal lesion. No abnormal mass lesion could be seen in the visualized lower neck. BONES: No fracture or dislocation. No focal bone lesion diagnostic of metastatic disease could be seen in the thorax. VISUALIZED UPPER ABDOMEN: Unremarkable. CT/CT chest wo IV con IMPRESSION: 1. Unchanged Advanced emphysema with vascular distortion in the right upper lobe and bilateral lower lobe superior segment paraseptal emphysema and diffuse confluent emphysema in the rest of the lungs. 2. Unchanged 2 mm micronodules in right upper lobe and right middle lobe. 3. Interval decrease in size of the subpleural subsegmental endobronchial lesion compatible with mucous plugging in right lower lobe lateral basal segment. 4. Interval resolution of the subsegmental endobronchial mucous plugging in the right lower lobe posterior basal segment. 5. Interval decrease in bilateral lower lobe endobronchial mucous plugging and bronchial wall thickening. 6. Persistent bilateral lower lobe and left lingular lobe platelike atelectasis. 7. No evidence of suspicious lung lesion. Fleischner guidelines were followed. 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: Assessment & Plan Assessment & Plan (1) COPD (chronic obstructive pulmonary disease): Code(s): J44.9 - Chronic obstructive pulmonary disease, unspecified Category: Medical Qualifiers: COPD type: COPD with acute exacerbation Qualified Code(s): J44.1 - Chronic obstructive pulmonary disease with (acute) exacerbation (2) Pulmonary nodule: Code(s): R91.1 - Solitary pulmonary nodule Category: Medical (3) History of acute respiratory failure: Code(s): Z87.09 - Personal history of other diseases of the respiratory system Category: Medical Plan At this time Bernie feel symptoms are well controlled on current regimen. Advised to continue and increase DuoNeb to b.i.d. if needed. Reviewed chest CT which revealed emphysema as well as multiple pulmonary nodules which have been stable at this time. Given patient's smoking history, will send for repeat chest CT in 1 year. All questions were answered and patient is in agreement of plan. Will follow-up in 3-6 months or sooner if needed. Orders: Orders CT chest wo IV con 10 Months R91.1 - Solitary pulmonary nodule Coding Level of Care Code Est Pt Level 4 (50427) Diagnoses Chronic obstructive pulmonary disease with acute exacerbation J44.1 COPD type: COPD with acute exacerbation Pulmonary nodule R91.1 History of acute respiratory failure Z87.09
[2024-02-11 11:20] VITALS: BP 128/76; PULSE 91; O2SAT 94; BMI 26.3
== END 2024-02-11 12:01 | disposition home or self-care (01) ==
PROVIDERS: PCP Family Medicine; Visit Provider Nurse Practitioner Family
DX: J44.1 Chronic obstructive pulmonary disease with (acute) exacerbation (principal); R91.1 Solitary pulmonary nodule; Z87.09 Personal history of other diseases of the respiratory system
CPT/HCPCS: 99214

== ENCOUNTER → 2024-02-11 11:10 | Outpatient (BNVA) | payer MEDICARE, OTHER, SELFPAY | PROVIDERS: PCP Family Medicine; Visit Provider Nurse Practitioner Family | DX: J44.1 Chronic obstructive pulmonary disease with (acute) exacerbation (principal); R91.1 Solitary pulmonary nodule; Z87.09 Personal history of other diseases of the respiratory system | CPT/HCPCS: 99212 ==

== ENCOUNTER 2024-06-23 10:17 | Outpatient (AMB) | payer MEDICARE, OTHER, SELFPAY ==
--- NOTE | 2024-06-23 10:19 | MHC.OFFVIS ---
Vital Signs 06/23/24 10:20 Height 5 ft 4 in Weight 153 lb 4 oz BMI 26.3 BP 114/66 Blood Pressure Location Rt brachial Position Sitting Pulse 95 Pulse Source Pulse Oximeter Pulse Oximetry (%) 91 L Oxygen Delivery Method Room Air Intake Visit Reasons: COPD Allergies No Known Allergies Allergy (Verified 06/23/24 10:22) HPI HPI COPD: Details: Bernie is a pleasant 68 year old female, former smoker with 30 pack year history, quit 18 yrs ago, with underlying COPD, asthma and h/o acute respiratory failure with hypoxemia. In October she was admitted to [facility] [place] acute on chronic respiratory failure with hypoxia secondary to influenza. Discharged on 2L supplemental oxygen, discontinued supplemental oxygen as she felt she no longer required and returned equipment to [facility] in February 2024. She continues to report oxygen saturation maintains around 90-92% occasionally 94% on on room air. She reports moderate control on current regimen of Wixela and Spiriva, using Duoneb QD and albuterol PRN. She continues to report intermittent productive cough, occasional wheezing and dyspnea with moderate exertion. She also continues to be quite active walking 5 miles per day with frequent resting. Denies any visits urgent care or hospitalization since last visit. She did note that she is up to date with vaccinations. [facility] Medical History (Updated 06/23/24 @ 12:15 by Maira Fuller NP) COPD (chronic obstructive pulmonary disease) Opioid dependence Chronic low back pain Pulmonary nodule Social History Household Members: Family Housing: House Do you presently have visiting nurse or other home services: No Patient Tobacco Use Status: Former Tobacco user Tobacco use type: Cigarette Cigarette Packs Per Day: 1 Years Smoked: 30 service: No Current occupational status: retired Review of Systems Const Denies chills, Denies excessive sweating, Denies fever(s), Denies headache(s) and Denies night sweats Eyes Denies dry eyes, Denies irritation and Denies itchy eyes ENT Reports Normal hearing present, Denies headache(s), Denies nasal congestion, Denies nasal discharge, Denies post nasal drip and Denies sore throat Card Denies chest pain, Denies chest pain at rest, Denies chest pain with activity, Denies claudication, Denies leg edema, Denies orthopnea and Denies paroxysmal nocturnal dyspnea Resp Denies chest congestion, Denies excessive phlegm production, Denies pain on inspiration, Denies pain with cough and Denies stridor Musc Denies myalgias Neuro Reports Normal hearing present and Denies headache(s) Endo Denies excessive sweating Miguel/Lymph Denies lymphadenopathy Aller/Immun Denies itchy eyes and Denies seasonal rhinorrhea Physical Exam Vital Signs: Last Vital Signs Pulse 95 06/23/24 10:20 BP 114/66 06/23/24 10:20 Pulse Ox 91 L 06/23/24 10:20 Oxygen Delivery Method Room Air 06/23/24 10:20 BMI result Body Mass Index 26.3 Const General: cooperative, healthy appearing, comfortable, no acute distress, well developed and alert Orientation/consciousness: patient oriented x3 Limitations: no limitations HEENT Head: Yes normal to inspection, Yes normocephalic and Yes atraumatic Ears: hearing grossly normal bilaterally and external ears normal Eyes General: appearance normal, both eyes and all related structures Eyelids: Yes eyelids normal Sclerae: sclerae normal EOM: EOMs intact bilaterally Neck Neck: Yes normal visual inspection and Yes no lymphadenopathy Lymphatic: no lymphadenopathy noted Chest Chest palpation & inspection: normal inspection of the chest Resp Effort & Inspection: normal respiratory effort, able to speak in complete sentences, no stridor, not tachypneic, no tripod positioning and no use of accessory muscles Auscultation: no wheezes and diminished lung sounds Cardio Jugular venous distension: no JVD Rate: regular rate Rhythm: regular rhythm Skin Other: warm, dry General skin exam: no rashes or lesions noted Neuro General: patient oriented x3 Cranial nerves: Yes Normal hearing present Cognition (Neuro): normal cognition Gait exam (Neuro): Normal gait present Extrem General: Yes normal to inspection, Yes capillary refill normal, Yes no clubbing, cyanosis or edema and Yes no pedal edema Psych Appearance: grossly normal and well kempt Speech and movement: Normal speech and movement present and Clear speech present Affect: normal affect Attitude: cooperative Thought process: Normal thought process present Thought content: Normal thought content present Insight: Good insight present (Psych) Judgement: Good judgement present (Psych) Assessment & Plan Assessment & Plan (1) COPD (chronic obstructive pulmonary disease): Code(s): J44.9 - Chronic obstructive pulmonary disease, unspecified Category: Medical Qualifiers: COPD type: COPD with acute exacerbation Qualified Code(s): J44.1 - Chronic obstructive pulmonary disease with (acute) exacerbation (2) Pulmonary nodule: Code(s): R91.1 - Solitary pulmonary nodule Category: Medical (3) History of acute respiratory failure: Code(s): Z87.09 - Personal history of other diseases of the respiratory system Category: Medical Plan At this time Bernie feel symptoms are well controlled on current regimen. Advised to continue and increase DuoNeb to BID. Reviewed chest CT which revealed emphysema as well as multiple pulmonary nodules which have been stable at this time.Repeat chest CT will be scheduled for 12/2024, order placed at last visit. Upon arrival to room patient's oxygen was 91% and increased to 92-93% on room air. Discussed 6MWT and likely need for supplemental oxygen with exertion however she deferred and would like to continue to monitor oxygen saturation at home. Discussed adverse effects of hypoxia and avoidance of driving however patient does not drive. Will send for overnight oximetry to assess for nocturnal hypoxemia. All questions were answered and patient is in agreement of plan. Will follow-up in 3 months and attempt 6MWT at that time if patient agrees or sooner if needed. Orders: Orders Overnight Pulse Oximetry Today G47.34 - Idiopathic sleep related nonobstructive alveolar hypoventilation Coding Level of Care Code Est Pt Level 4 (18760) Diagnoses Chronic obstructive pulmonary disease with acute exacerbation J44.1 COPD type: COPD with acute exacerbation Pulmonary nodule R91.1 History of acute respiratory failure Z87.09
[2024-06-23 10:20] VITALS: BP 114/66; PULSE 95; O2SAT 91; BMI 26.3
== END 2024-06-23 10:52 | disposition home or self-care (01) ==
PROVIDERS: PCP Family Medicine; Visit Provider Nurse Practitioner Family
DX: J44.1 Chronic obstructive pulmonary disease with (acute) exacerbation (principal); R91.1 Solitary pulmonary nodule; Z87.09 Personal history of other diseases of the respiratory system
CPT/HCPCS: 99214

== ENCOUNTER → 2024-06-23 10:17 | Outpatient (BNVA) | payer MEDICARE, OTHER, SELFPAY | PROVIDERS: PCP Family Medicine; Visit Provider Nurse Practitioner Family | DX: J44.1 Chronic obstructive pulmonary disease with (acute) exacerbation (principal); R91.1 Solitary pulmonary nodule; Z87.09 Personal history of other diseases of the respiratory system | CPT/HCPCS: 99212 ==

== ENCOUNTER 2024-06-29 07:01 | Inpatient (IN) | payer MEDICARE, OTHER, SELFPAY ==
[2024-06-29] VITALS (18 sets, daily range): BP systolic 140–163; BP diastolic 72–92; PULSE 85–98; RESP 16–23; TEMP 36.4–37.4; O2SAT 85–95; BMI 29.2
--- NOTE | ~2024-06-29 | XR_ITS ---
EXAMINATION: XR CHEST CLINICAL INFORMATION: Cough. COMPARISON: CT chest 01/21/2024. Chest radiograph 11/11/2023. TECHNIQUE: Frontal view of the chest was obtained. FINDINGS: Stable appearance of the cardiomediastinal silhouette. Within a background of chronic interstitial thickening, there is subjective slightly increased bronchial wall thickening compared to most recent prior radiograph from October. No dense consolidation. No pleural effusion or pneumothorax. No acute osseous findings. XR/XR chest 1V IMPRESSION: 1. Mildly increased bronchial wall thickening when compared to most recent chest radiograph from October which could be seen with asthma, bronchitis, reactive airways disease or atypical infections. 2. No dense consolidation, pleural effusion or pneumothorax. 3. Background of chronic interstitial thickening and emphysema. Electronically signed by: Teresa Davis MD 06/29/2024 09:07 AM EDT
--- NOTE | 2024-06-29 07:10 | ECG_ITS ---
Test Reason : difficulty breathing Blood Pressure : / mmHG Vent. Rate : 088 BPM Atrial Rate : 088 BPM P-R Int : 114 ms QRS Dur : 092 ms QT Int : 346 ms P-R-T Axes : 056 069 070 degrees QTc Int : 418 ms Artifact in tracing Normal sinus rhythm Normal ECG When compared with ECG of 11-NOV-2023 10:30, No significant changes seen Referred By: Estrada Harrington Electronically Signed By:ARTEMIO RODRIGES
--- NOTE | 2024-06-29 07:13 | ED.SOB ---
HPI - SOB/Dyspnea General Chief Complaint: Dyspnea Stated Complaint: DIFFICULTY BREATHING Source: patient Mode of arrival: EMS Limitations: no limitations History of Present Illness HPI Narrative: This is a very pleasant 69 years old the patient presented to the emergency department in respiratory distress. She has a history of COPD not on oxygen currently call 911 because she was feeling shortness of breath denies any fever she does have some cough. She arrived tachypneic and hypoxic. MD elicited complaint: shortness of breath and cough Pertinent past history: COPD Onset (ago): day(s) (1) Timing: constant Severity: moderate Exacerbating factors: nothing Relieving factors: oxygen Known history of: COPD Treatment prior to arrival: none Related Data Home Medications ?Medication ?Instructions ?Recorded ?Confirmed hydrochlorothiazide 12.5 mg tablet 12.5 mg PO DAILY 05/21/22 11/27/23 morphine 15 mg tablet,extended 15 mg PO BID 05/21/22 11/27/23 release oxycodone 10 mg tablet 10 mg PO QID PRN Pain, Moderate 05/21/22 11/27/23 albuterol sulfate 90 mcg/actuation 2 puff inhalation Q4H PRN 11/11/23 11/27/23 aerosol inhaler shortness of breath or wheezing alendronate 70 mg tablet 70 mg PO MO 11/11/23 11/27/23 amlodipine 10 mg tablet 10 mg PO DAILY 11/11/23 11/27/23 docusate sodium 100 mg capsule 100 mg PO DAILY 11/11/23 11/27/23 fluticasone 500 mcg-salmeterol 50 1 inh inhalation BID 11/11/23 11/27/23 mcg/dose blistr powdr for inhalation (Wixela Inhub) ibuprofen 800 mg tablet 800 mg PO TID PRN Pain 11/11/23 11/27/23 ipratropium 0.5 mg-albuterol 3 mg 3 ml inhalation QID PRN Wheezing 11/11/23 11/27/23 (2.5 mg base)/3 mL nebulization soln multivitamin 1 tab PO DAILY 11/11/23 11/27/23 naloxone 0.4 mg/mL injection 0.4 mg subcut Q3M PRN overdose 11/11/23 11/27/23 solution tiotropium bromide 2.5 2 puff inhalation DAILY 11/11/23 11/27/23 mcg/actuation mist for inhalation (Spiriva Respimat) Previous Rx's ?Medication ?Instructions ?Recorded oseltamivir 75 mg capsule (Tamiflu) 75 mg PO Q12H #1 cap 11/15/23 Allergies Allergy/AdvReac Type Severity Reaction Status Date / Time No Known Allergies Allergy Verified 06/29/24 07:10 Review of Systems ENT: Reports system reviewed and no additional complaints, except as documented Respiratory: Respiratory: Reports cough Musculoskeletal: Musculoskeletal: Reports no additional musculoskeletal complaints [facility] Past Medical History [facility] Narrative: COPD currently not on oxygen, chronic lower back pain Medical History COPD (chronic obstructive pulmonary disease) Opioid dependence Chronic low back pain Pulmonary nodule Social History Social History Household Members: Family Housing: House Do you presently have visiting nurse or other home services: No Patient Tobacco Use Status: Former Tobacco user Tobacco use type: Cigarette Cigarette Packs Per Day: 1 Years Smoked: 30 Advance Directives: No Advance Directives Information Provided: Yes Do you have a plan to hurt others: No Plan service: No Current occupational status: retired Physical Exam Vital Signs: Vital Signs: Last Vital Signs Temp 98.0 F 06/29/24 08:54 Pulse 92 06/29/24 08:54 Resp 18 06/29/24 08:54 BP 140/90 H 06/29/24 08:54 Pulse Ox 93 06/29/24 08:54 O2 Del Method Nasal Cannula 06/29/24 08:54 O2 Flow Rate 4 06/29/24 08:54 BMI result Body Mass Index 29.2 mild distress Const: General: cooperative Nutritional Appearance: average body habitus Orientation/consciousness: patient oriented x3 HEENT: Head: Yes normal to inspection Face and sinus: Yes normal facial exam Neck: Neck: Yes normal visual inspection Chest: Chest palpation & inspection: normal inspection of the chest Resp: Auscultation: wheezes Cardio: Jugular venous distension: no JVD Rate: regular rate Rhythm: regular rhythm GI: Inspection: Yes normal to inspection Palpation (GI): Soft to palpation, not firm, nontender and no guarding Skin: General skin exam: no rashes or lesions noted and elasticity normal Lesions: no lesions Rashes: no rashes Neuro: General: patient oriented x3 Extrem: General: Yes normal to inspection Course Reevaluation(s) Reevaluation #1: Patient is doing much better this time she does have an oxygen requirement anticipate admission Time: 09:27 Medications Administered Discontinued Medications Generic Name Dose Route Start Last Admin Trade Name Freq PRN Reason Stop Dose Admin Albuterol Sulfate 2.5 mg/ 0 mg 06/29/24 07:24 06/29/24 07:29 Albuterol/Ipratropium 3 ml INHALE 06/29/24 07:25 1 dose ONCE ONE Administration Methylprednisolone Sodium Succinate 125 mg 06/29/24 07:11 06/29/24 07:34 Methylprednisolone Sod Succ 125 Mg/2 Ml Vial IVPUSH 06/29/24 07:12 125 mg ONCE ONE Administration Medical Decision Making Medical Decision Making [facility] Narrative: Patient presented to the emergency room with a chief complaint of shortness of breath she is hypoxic she is wheezing we will go ahead and do chest x-ray labs administer beta 2 agonist Differential Diagnosis Differential Diagnoses: The differential diagnosis associated with the presentation includes COPD exacerbation/pneumonia/congestive Admission/Observation Consideration of admission/observation: Escalation of care including admission/observation considered Consult Healthcare Provider Management of the patient was discussed with: Hospitalist Lab Data [facility] Lab Attestation statement: I reviewed the patient's lab results. 06/29/24 07:17 06/29/24 07:17 Labs: Lab Results 06/29/24 06/29/24 Range/Units 07:17 07:28 WBC 5.0 (4.8-10.8) X10*3/uL RBC 5.27 (4.20-5.50) X10*6/uL Hgb 16.4 H (12.0-16.0) g/dl Hct 49.2 H (37.0-47.0) % MCV 93.4 (80.0-98.0) fL MCH 31.1 (27.0-33.0) pg MCHC 33.3 (31.0-35.0) g/dl RDW 12.8 (11.0-16.0) % Plt Count 149 L (160-400) X10*3/uL MPV 9.7 (9.4-12.3) fL Immature Gran % (Auto) 0.8 H (0.0-0.4) % Neut % (Auto) 69.3 (45-73) % Lymph % (Auto) 20.3 (20-40) % Lyon % (Auto) 7.4 (2-11) % Eos % (Auto) 1.8 (0-4) % Baso % (Auto) 0.4 (0-2) % Lymph # (Auto) 1.0 L (1.2-4.9) X10*3/uL Lyon # (Auto) 0.4 (0.1-1.2) X10*3/uL Eos # (Auto) 0.1 (0.0-0.4) X10*3/uL Baso # (Auto) 0.0 (0.0-0.2) X10*3/uL Abs Immat Gran (auto) 0.04 H (0.00-0.03) X10*3/uL Absolute Neuts (auto) 3.4 (2.0-8.3) x10*3/uL Absolute Nucleated RBC 0.000 (0.0-0.012) X10*3/uL Nucleated RBC % (auto) 0.0 (0.0-0.2) /100WBC VBG pH 7.39 (7.32-7.43) VBG pCO2 57 mmHg VBG pO2 53 mmHg VBG HCO3 35 H (22-26) mmol/L VBG O2 Saturation 80.0 % VBG Base Excess 7.8 mmol/L Sodium 140 (135-145) mmol/L Potassium 3.5 (3.3-5.1) mmol/L Chloride 101 (96-108) mmol/L Carbon Dioxide 32 H (22-29) mmol/L Anion Gap 11 L (12-20) BUN 16 (9-16) mg/dL Creatinine 0.73 (0.5-1.4) mg/dL Estim Creat Clear Calc 72.1 Estimated GFR > 60 Random Glucose 108 (60-115) mg/dL Calcium 9.0 (8.4-10.2) mg/dL Total Bilirubin 0.3 (0.0-1.0) mg/dL AST 49 H (5-31) U/L ALT 66 H (0-31) U/L Alkaline Phosphatase 91 (39-117) U/L Troponin I High Sens < 2.7 (<3.5-17.0) ng/L B-Natriuretic Peptide 35 (<100) pg/mL Total Protein 7.1 (6.5-8.0) g/dL Albumin 4.2 (3.5-5.0) g/dL Independent Interpretation I performed an independent interpretation of an: EKG Interpretation: ELECTROCARDIOGRAM SHOWS NORMAL SINUS RHYTHM RATE [address]-T CHANGES, NO ISCHEMIA Chest x-ray reviewed interpreted by me as an not acute disease Radiology Impression Discussion of test interpretation with radiology: I have reviewed the radiologist's reading. Independent Historian Clinical information obtained from an independent historian. History obtained from or confirmed by: EMS External Record Review External record reviewed: Inpatient record Chronic Conditions Patient?s care impacted by: Other (COPD) Critical Care Time Critical Care Time Critical Care Time: Yes Total Critical Care Time: 60 Attestation: Multiple nebs [id number] Discharge Plan Discharge Clinical Impression: Acute exacerbation of chronic obstructive pulmonary disease (COPD) Patient Disposition: Still a Patient Prescriptions: No Action morphine 15 mg Tablet Extended Release 15 mg PO BID hydrochlorothiazide 12.5 mg Tablet 12.5 mg PO DAILY oxycodone 10 mg Tablet 10 mg PO QID PRN (Reason: Pain, Moderate) multivitamin Tablet 1 tab PO DAILY ipratropium-albuterol 0.5 mg-3 mg(2.5 mg base)/3 mL Solution For Nebulization 3 ml INHALATION QID PRN (Reason: Wheezing) ibuprofen 800 mg Tablet 800 mg PO TID PRN (Reason: Pain) naloxone 0.4 mg/mL Solution 0.4 mg SUBCUT Q3M PRN (Reason: overdose) Rx Instructions: NTExceed 10 mg total dose/episode alendronate 70 mg Tablet 70 mg PO MO Rx Instructions: on mondays amlodipine 10 mg Tablet 10 mg PO DAILY fluticasone propion-salmeterol [Wixela Inhub] 500-50 mcg/dose Blister With Device 1 inh INHALATION BID docusate sodium 100 mg Capsule 100 mg PO DAILY Spiriva Respimat 2.5 mcg/actuation Mist 2 puff INHALATION DAILY albuterol sulfate 90 mcg/actuation HFA aerosol inhaler 2 puff inhalation Q4H PRN (Reason: shortness of breath or wheezing) oseltamivir [Tamiflu] 75 mg Capsule 75 mg PO Q12H Qty: 1 0RF Rx Instructions: has received 9 doses in the hospital, needs one dose tonight Print Language: Slovenian
[2024-06-29 07:24] LABS: MANUAL DIFF FLAG NO
[2024-06-29] MEDS: Albuterol Sulfate 2.5 MG, Albuterol/Iprat 2.5/0.5MG 3 ML 3 ML INHALE (07:29)
[2024-06-29 07:32] LABS: VBG Base Excess 7.8 mmol/L; VBG HCO3 35 mmol/L (22-26); VBG pCO2 57 mmHg; VBG pH 7.39 (7.32-7.43); VBG pO2 53 mmHg
[2024-06-29] MEDS: methylPREDNISolone Sod Succ 125 MG/2 ML VIAL IVPUSH (07:34)
--- NOTE | 2024-06-29 07:34 | PC.NURSE ---
pt receiving breathing treatment via RT. tolerating well. medication administered per provider order. effectiveness pending.
[2024-06-29 07:37] LABS: Basophils Percent Auto 0.4 % (0-2); Eosinophils Absolute Auto 0.1 X10*3/uL (0.0-0.4); Eosinophils Percent Auto 1.8 % (0-4); Hematocrit 49.2 % (37.0-47.0); Hemoglobin 16.4 g/dl (12.0-16.0); Imm Gran Abs Auto 0.04 X10*3/uL (0.00-0.03); Imm Gran Pct Auto 0.8 % (0.0-0.4); Lymphocytes Percent Auto 20.3 % (20-40); Mean Corpuscular HGB Conc 33.3 g/dl (31.0-35.0); Mean Corpuscular Hemoglobin 31.1 pg (27.0-33.0); Mean Corpuscular Volume 93.4 fL (80.0-98.0); Mean Platelet Volume 9.7 fL (9.4-12.3); Monocytes Absolute Auto 0.4 X10*3/uL (0.1-1.2); Monocytes Percent Auto 7.4 % (2-11); Neutrophils Absolute Auto 3.4 x10*3/uL (2.0-8.3); Neutrophils Percent Auto 69.3 % (45-73); Platelet Count 149 X10*3/uL (160-400); Red Blood Count 5.27 X10*6/uL (4.20-5.50); Red Cell Distribution Width 12.8 % (11.0-16.0)
--- NOTE | 2024-06-29 07:37 | PC.NURSE ---
pt noted to be 85% on 2L via NC - O2 titrated to 4L via NC - SPO2 @ 92%. no sob/wob noted. respirations even/unlabored while receiving breathing treatment.
[2024-06-29 07:39] LABS: Venous Blood Gas Refer to POC result
[2024-06-29 07:43] LABS: Alanine Aminotransferase 66 U/L (0-31); Albumin Level 4.2 g/dL (3.5-5.0); Alkaline Phosphatase 91 U/L (39-117); Anion Gap 11 (12-20); Aspartate Amino Transferase 49 U/L (5-31); Bilirubin Total 0.3 mg/dL (0.0-1.0); Blood Urea Nitrogen 16 mg/dL (9-16); Carbon Dioxide 32 mmol/L (22-29); Chloride 101 mmol/L (96-108); Creatinine Clr Calc Pharmacy 72.1; Estimated Glomerular Filt Rate > 60; Glucose Random 108 mg/dL (60-115); Potassium 3.5 mmol/L (3.3-5.1); Sodium 140 mmol/L (135-145); Total Protein 7.1 g/dL (6.5-8.0)
[2024-06-29 07:48] LABS: B Type Natriuretic Peptide 35 pg/mL (<100)
[2024-06-29 07:56] LABS: Troponin-I High Sensitivity < 2.7 ng/L (<3.5-17.0)
--- NOTE | 2024-06-29 09:10 | PC.NURSE ---
Addendum entered by Tita Rubi 06/29/24 09:12: late entry - @ [id number] Original Note: biba from home d/t [facility] x . hx of COPD. upon EMS arrival - 88% on RA - placed on 3L via NC via EMS w/ good effect - SPO2 @ 98%. not home O2 dependent. pt denies chest pain/fever/cough/n/v. upon ED arrival - a&ox4. vss and up to date aside from SPO2. pt displays w/ 87% on RA. pt then placed on 1L via NC w/ good effect. sob/wob noted. pt positioned upright to promote patent airway. nsr on the manager transfer. 20gIV placed in the right AC - labs obtained/sent to lab. ekg performed by tech. pt seen by ED provider/aware of plan of care moving forward. plan of care ongoing. bedside for support. call evans placed within reach.
--- NOTE | 2024-06-29 10:31 | PHA.MEDREC ---
Addendum entered by Tata Lopez RPh 06/29/24 11:38: Pt states she takes Spiriva two puffs BID, however pharmacy states directions are 2 puffs once daily. Addendum entered by Tata Lopez RPh 06/29/24 11:37: [facility] Reviewed. Called mail order pharmacy to confirm medications. Original Note: Pharmacy Consult ? Medication Reconciliation Pharmacy has completed the medication reconciliation. Confirmed medications with patient. Patient confirmed her Alendronate 70mg tab once a week and she confirmed she takes them on Saturday and took it along with Amlopipine 10mg and Hydrochlorothiazide 12.5mg today and states everything else was yesterday. The patient states she never ended picking up and taking the Tamiflu after she was DC'd from the hospital.
[2024-06-29] MEDS: Enoxaparin Sodium 40 MG/0.4 ML SYRINGE SUBCUT (10:35)
[2024-06-29] MEDS: Albuterol/Iprat 2.5/0.5MG 3 ML AMPUL.NEB INHALE ×3 (11:04→18:34)
--- NOTE | 2024-06-29 11:07 | PC.NURSE ---
report given to RENATA Morris in overflow.
[2024-06-29] MEDS: methylPREDNISolone Sod Succ 40 MG/ML VIAL IVPUSH ×2 (11:32→23:34)
--- NOTE | 2024-06-29 11:46 | MHC.EDTECH ---
Patient arrived from main ed to overflow, rest quiet in the bed and call evans within reach.
--- NOTE | 2024-06-29 12:01 | MHC.EDTECH ---
Vitals/rounds completed.
--- NOTE | 2024-06-29 12:05 | P.HPHOSP_ITS ---
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 and was doing fine on her baseline regimen of DuoNeb b.i.d., albuterol as needed, Spiriva and Wixela, patient returned from [facility] 1-1/2 week ago and received her COVID vaccine 4 days ago and developed worsening shortness of breath, cough productive of clear phlegm felt sweaty with episodes of shortness of breath denies allergy symptoms of runny nose itchy watery eyes or sneezing, denies fever, no chills, no other family member is sick, in the emergency room patient noted to be hypoxic, finger oximetry 85-87% on room air EKG showed normal sinus rhythm no acute ST or T-wave changes, chest x-ray showed no acute infiltrate, patient noted to have normal electrolytes, renal function and CBC, She was treated IV steroids and updraft and now being admitted to [facility] with a diagnosis of acute hypoxic respiratory failure due to COPD exacerbation likely due to viral infection versus acute bronchitis. Review of Systems 2 Review of Systems: General no headache no dizziness no fever chills. CVS no chest pain, no palpitation. Respiratory shortness of breath, productive of clear phlegm Gastrointestinal no nausea no vomiting, no abdominal pain no urgency, no frequency Musculoskeletal no pain All other system reviewed and negative [facility] Medical History COPD (chronic obstructive pulmonary disease) Opioid dependence Chronic low back pain Pulmonary nodule Pertinent family history: No family history of premature coronary artery disease Social History Household Members: Family Housing: House Do you presently have visiting nurse or other home services: No Patient Tobacco Use Status: Former Tobacco user Tobacco use type: Cigarette Cigarette Packs Per Day: 1 Years Smoked: 30 Smoked in Last 30 Days: No Use of substances other than those prescribed or required for medical reasons: No Advance Directives: No Advance Directives Information Provided: Yes Do you have a plan to hurt others: No Plan Nutrition Risks: No Nutritional Risk service: No Current occupational status: retired [employer] Allergies Allergy/AdvReac Type Severity Reaction Status Date / Time No Known Allergies Allergy Verified 06/29/24 07:10 Active Medications: Current Medications Acetaminophen (Acetaminophen 325 Mg Tablet) 650 mg PO Q6H PRN PRN Reason: Pain, Mild (Pain Scale 1-3), fever or headache Albuterol/Ipratropium (Albuterol/Iprat 2.5/0.5mg 3 Ml Ampul.Neb) 3 ml INHALE RQ4H WHILE AWAKE [facility] Last Admin: 06/29/24 11:04 Dose: 3 ml Calcium Carbonate (Calcium Carbonate 750 Mg Tab.Chew) 750 mg PO Q4H PRN PRN Reason: Heartburn Enoxaparin Sodium (Enoxaparin Sodium 40 Mg/0.4 Ml Syringe) 40 mg SUBCUT Q24H [facility] Last Admin: 06/29/24 10:35 Dose: 40 mg Magnesium Hydroxide (Milk Of Magnesia 30 Ml Oral.Susp) 30 ml PO DAILY PRN PRN Reason: Constipation Melatonin (Melatonin 3 Mg Tablet) 6 mg PO BEDTIME PRN PRN Reason: Insomnia Methylprednisolone Sodium Succinate (Methylprednisolone Sod Succ 40 Mg/Ml Vial) 40 mg IVPUSH Q12H [facility] Last Admin: 06/29/24 11:32 Dose: 40 mg Ondansetron HCl (Ondansetron Hcl 4 Mg/2 Ml Vial) 4 mg IVPUSH Q8H PRN PRN Reason: Nausea and Vomiting Sodium Chloride (0.9 % Sodium Chloride Flush 3 Ml Syringe) 3 ml IVFLUSH QSHIFT [facility] Home Medications ?Medication ?Instructions ?Recorded ?Confirmed ?Last Taken ?Type hydrochlorothiazide 12.5 mg tablet 12.5 mg PO DAILY 05/21/22 06/29/24 06/29/24 History morphine 15 mg tablet,extended 15 mg PO BID 05/21/22 06/29/24 06/28/24 History release oxycodone 10 mg tablet 10 mg PO QID PRN Pain, Moderate 05/21/22 06/29/24 06/28/24 History albuterol sulfate 90 mcg/actuation 2 puff inhalation Q4H PRN 11/11/23 06/29/24 Unknown History aerosol inhaler shortness of breath or wheezing alendronate 70 mg tablet 70 mg PO MO 11/11/23 06/29/24 06/29/24 History amlodipine 10 mg tablet 10 mg PO DAILY 11/11/23 06/29/24 06/29/24 History docusate sodium 100 mg capsule 100 mg PO DAILY 11/11/23 06/29/24 06/28/24 History fluticasone 500 mcg-salmeterol 50 1 inh inhalation BID 11/11/23 06/29/24 06/28/24 History mcg/dose blistr powdr for inhalation (Wixela Inhub) ibuprofen 800 mg tablet 800 mg PO TID PRN Pain 11/11/23 06/29/24 Unknown History ipratropium 0.5 mg-albuterol 3 mg 3 ml inhalation QID PRN Wheezing 11/11/23 06/29/24 Unknown History (2.5 mg base)/3 mL nebulization soln multivitamin 1 tab PO DAILY 11/11/23 06/29/24 06/28/24 History naloxone 0.4 mg/mL injection 0.4 mg subcut Q3M PRN overdose 11/11/23 06/29/24 Unknown History solution tiotropium bromide 2.5 2 puff inhalation DAILY 11/11/23 06/29/24 06/28/24 History mcg/actuation mist for inhalation (Spiriva Respimat) Physical Exam 2 Vital Signs and Narrative: Vital Signs: Last Vital Signs Temp 97.9 F 06/29/24 11:53 Pulse 92 06/29/24 11:53 Resp 18 06/29/24 11:53 BP 158/76 H 06/29/24 11:53 Pulse Ox 95 06/29/24 11:53 O2 Del Method Nasal Cannula 06/29/24 11:53 O2 Flow Rate 3 06/29/24 11:53 BMI result Body Mass Index 29.2 Const: Other: General awake alert, no acute distress. Neck no JVD. CVS regular rate rhythm, Respiratory lungs diminished breath sound, few expiratory wheeze, no respiratory distress, Gastrointestinal abdomen soft, non tender, bowel sounds audible, no guarding , no rigidity. Extremities no edema. Neuro non focal Skin no rash psych appropriate affect Results Labs 06/29/24 07:17 06/29/24 07:17 Labs: Laboratory Results - last 24 hr 06/29/24 06/29/24 07:17 07:28 MCV 93.4 MCH 31.1 MCHC 33.3 RDW 12.8 Plt Count 149 L MPV 9.7 Immature Gran % (Auto) 0.8 H Neut % (Auto) 69.3 Lymph % (Auto) 20.3 [place] % (Auto) 7.4 Eos % (Auto) 1.8 Baso % (Auto) 0.4 Lymph # (Auto) 1.0 L [place] # (Auto) 0.4 Eos # (Auto) 0.1 Baso # (Auto) 0.0 Abs Immat Gran (auto) 0.04 H Absolute Neuts (auto) 3.4 Absolute Nucleated RBC 0.000 Nucleated RBC % (auto) 0.0 VBG pH 7.39 VBG pCO2 57 VBG pO2 53 VBG HCO3 35 H VBG O2 Saturation 80.0 VBG Base Excess 7.8 Anion Gap 11 L Estim Creat Clear Calc 72.1 Estimated GFR > 60 Random Glucose 108 Calcium 9.0 Total Bilirubin 0.3 AST 49 H ALT 66 H Alkaline Phosphatase 91 Troponin I High Sens < 2.7 B-Natriuretic Peptide 35 Total Protein 7.1 Albumin 4.2 Imaging Radiologist's Impressions: Impressions Chest X-Ray 06/29/24 08:15 IMPRESSION: 1. Mildly increased bronchial wall thickening when compared to most recent chest radiograph from October which could be seen with asthma, bronchitis, reactive airways disease or atypical infections. 2. No dense consolidation, pleural effusion or pneumothorax. 3. Background of chronic interstitial thickening and emphysema. Electronically signed by: Teresa Davis MD 06/29/2024 09:07 AM EDT RP Assessment and Plan (1) Acute exacerbation of chronic obstructive pulmonary disease (COPD): Status: Acute (2) Hypoxia: Status: Acute Plan 68-year-old gentleman with past medical history of COPD/asthma not on home O2, opioid dependence with chronic back pain presented to [facility] due to symptoms of shortness of breath and noted to have acute hypoxic respiratory failure likely due to COPD exacerbation. Acute hypoxic respiratory failure due to acute COPD exacerbation likely due to viral URI/acute bronchitis Chest x-ray showed no acute infiltrate, will obtain respiratory viral pathogen Normal WBC, no fevers mild tachycardia due to hypoxia Will place on IV steroids, DuoNeb updraft scheduled and as needed, cough medication,Doxycycline 100 mg b.i.d. On home inhalers Wixela, Spiriva and DuoNeb Will assess for home O2 eval, not on home O2 Hypertension elevated blood pressure resume amlodipine 10 mg and hydrochlorothiazide 12.5 mg daily home dose. Chronic back pain on morphine sulfate 15 mg b.i.d. and as needed oxycodone, Transaminitis seems chronic, no abdominal pain, follow liver enzymes. DVT prophylaxis Lovenox Full code In my clinical judgment patient requires 2 night inpatient hospitalization for management of acute hypoxic respiratory failure due to acute COPD exacerbation requiring IV steroids/schedule updraft and close respiratory monitoring. Quality Stroke Does the patient have a stroke diagnosis?: No VTE Prior VTE?: No VTE Risk Level:: Medical - moderate - high VTE Device Contraindication: Treatment Not Indicated VTE Drug Contraindication: N/A - Med Ordered
[2024-06-29] MEDS: amLODIPine Besylate 10 MG TABLET PO (12:26)
[2024-06-29] MEDS: Doxycycline Monohydrate 100 MG CAPSULE PO ×2 (12:41→23:34)
[2024-06-29] MEDS: oxyCODONE HCl Immed Release 5 MG TABLET PO ×2 (12:45→20:47)
[2024-06-29] MEDS: Acetaminophen 325 MG TABLET 650 MG PO ×2 (12:45→22:02)
[2024-06-29 14:31] LABS: Adenovirus PCR Not Detected (Not Detect.); Bordetella parapertussis PCR Not Detected (Not Detect.); Bordetella pertussis PCR Not Detected (Not Detect.); Chlamydia pneumoniae PCR Not Detected (Not Detect.); Coronavirus 229E PCR Not Detected (Not Detect.); Coronavirus HKU1 PCR Not Detected (Not Detect.); Coronavirus NL63 PCR Not Detected (Not Detect.); Coronavirus OC43 PCR Not Detected (Not Detect.); Human metapneumovirus PCR Not Detected (Not Detect.); Influenza A PCR Not Detected (Not Detect.); Influenza B PCR Not Detected (Not Detect.); Mycoplasma pneumoniae PCR Not Detected (Not Detect.); Parainfluenza 1 PCR Detected (Not Detect.); Parainfluenza 2 PCR Not Detected (Not Detect.); Parainfluenza 3 PCR Not Detected (Not Detect.); Parainfluenza 4 PCR Not Detected (Not Detect.); RSV PCR Not Detected (Not Detect.); Rhino/Enterovirus PCR Not Detected (Not Detect.)
[2024-06-29 15:11] LABS: SARS-CoV-2 PCR Not Detected (Not Detect.)
[2024-06-29] MEDS: 0.9 % Sodium Chloride Flush 3 ML SYRINGE IVFLUSH ×2 (16:04→20:47)
[2024-06-29] MEDS: Morphine Sulfate ER 15 MG TABLET.ER PO (20:45)
[2024-06-29] MEDS: guaiFENesin DM 200/20/10 ML 10 ML SYRUP PO (20:48)
[2024-06-30] VITALS (11 sets, daily range): BP systolic 135–164; BP diastolic 64–89; PULSE 88–102; RESP 16–20; TEMP 36.2–36.3; O2SAT 93–99
[2024-06-30] MEDS: oxyCODONE HCl Immed Release 5 MG TABLET PO ×3 (05:50→22:19)
[2024-06-30] MEDS: Docusate Sodium 100 MG CAPSULE PO (07:31)
[2024-06-30] MEDS: amLODIPine Besylate 10 MG TABLET PO (07:31)
[2024-06-30] MEDS: Albuterol/Iprat 2.5/0.5MG 3 ML AMPUL.NEB INHALE ×4 (07:36→20:18)
[2024-06-30] MEDS: Morphine Sulfate ER 15 MG TABLET.ER PO ×2 (07:36→20:00)
[2024-06-30] MEDS: 0.9 % Sodium Chloride Flush 3 ML SYRINGE IVFLUSH ×3 (07:37→22:21)
[2024-06-30] MEDS: Enoxaparin Sodium 40 MG/0.4 ML SYRINGE SUBCUT (10:21)
[2024-06-30] MEDS: guaiFENesin DM 200/20/10 ML 10 ML SYRUP PO ×3 (10:21→22:18)
[2024-06-30] MEDS: methylPREDNISolone Sod Succ 40 MG/ML VIAL IVPUSH ×2 (10:22→22:21)
--- NOTE | 2024-06-30 11:07 | P.PNIM_ITS ---
Subjective Subjective Date of Service: 06/30/24 Interval History: Complaining of persistent shortness of breath worse with activity denies fever, no chills, no acute events overnight, persistent mild tachycardia tachypnea, oxygenation stable on 2-3 L, not on home oxygen, respiratory viral panel positive for parainfluenza, patient has been on oxygen temporarily in the past. Review of Systems All other system reviewed and negative Physical Exam 2 Vital Signs: Vital Signs: Last Vital Signs Temp 97.2 F 06/30/24 07:48 Pulse 94 06/30/24 07:48 Resp 18 06/30/24 07:48 BP 149/78 H 06/30/24 07:31 Pulse Ox 99 06/30/24 07:48 O2 Del Method Nasal Cannula 06/30/24 07:48 O2 Flow Rate 4 06/30/24 07:48 BMI result Body Mass Index 29.2 Const: Other: General awake alert, no acute distress. Neck no JVD. CVS regular rate rhythm, Respiratory lungs diminished breath sound, few expiratory wheeze, no respiratory distress, Gastrointestinal abdomen soft, non tender, bowel sounds audible, no guarding , no rigidity. Extremities no edema. Neuro non focal Skin no rash psych appropriate affect Objective Data Active Medications Acetaminophen (Acetaminophen 325 Mg Tablet) 650 mg PO Q6H PRN PRN Reason: Pain, Mild (Pain Scale 1-3), fever or headache Last Admin: 06/29/24 22:02 Dose: 650 mg Documented By: SANG Albuterol/Ipratropium (Albuterol/Iprat 2.5/0.5mg 3 Ml Ampul.Neb) 3 ml INHALE RQ4H WHILE AWAKE [facility] Last Admin: 06/30/24 07:36 Dose: 3 ml Documented By: ANAIS Albuterol/Ipratropium (Albuterol/Iprat 2.5/0.5mg 3 Ml Ampul.Neb) 3 ml INHALE Q3H PRN PRN Reason: Shortness of Breath Amlodipine Besylate (Amlodipine Besylate 10 Mg Tablet) 10 mg PO DAILY [facility]; Protocol Last Admin: 06/30/24 07:31 Dose: 10 mg Documented By: NAIF Calcium Carbonate (Calcium Carbonate 750 Mg Tab.Chew) 750 mg PO Q4H PRN PRN Reason: Heartburn Docusate Sodium (Docusate Sodium 100 Mg Capsule) 100 mg PO DAILY [facility] Last Admin: 06/30/24 07:31 Dose: 100 mg Documented By: NAIF Doxycycline Monohydrate (Doxycycline Monohydrate 100 Mg Capsule) 100 mg PO Q12H [facility] Last Admin: 06/29/24 23:34 Dose: 100 mg Documented By: SANG Enoxaparin Sodium (Enoxaparin Sodium 40 Mg/0.4 Ml Syringe) 40 mg SUBCUT Q24H [facility] Last Admin: 06/30/24 10:21 Dose: 40 mg Documented By: NAIF Guaifenesin/Dextromethorphan (Guaifenesin Dm 200/20/10 Ml 10 Ml Syrup) 10 ml PO Q6H PRN PRN Reason: Cough Last Admin: 06/30/24 10:21 Dose: 10 ml Documented By: NAIF Magnesium Hydroxide (Milk Of Magnesia 30 Ml Oral.Susp) 30 ml PO DAILY PRN PRN Reason: Constipation Melatonin (Melatonin 3 Mg Tablet) 6 mg PO BEDTIME PRN PRN Reason: Insomnia Methylprednisolone Sodium Succinate (Methylprednisolone Sod Succ 40 Mg/Ml Vial) 40 mg IVPUSH Q12H [facility] Last Admin: 06/30/24 10:22 Dose: 40 mg Documented By: NAIF Morphine Sulfate (Morphine Sulfate Er 15 Mg Tablet.Er) 15 mg PO BID [facility] Last Admin: 06/30/24 07:36 Dose: 15 mg Documented By: NAIF Ondansetron HCl (Ondansetron Hcl 4 Mg/2 Ml Vial) 4 mg IVPUSH Q8H PRN PRN Reason: Nausea and Vomiting Oxycodone HCl (Oxycodone Hcl Immed Release 5 Mg Tablet) 5 mg PO Q6H PRN PRN Reason: Pain, Severe (Pain Scale 7-10) Last Admin: 06/30/24 05:50 Dose: 5 mg Documented By: SANG Sodium Chloride (0.9 % Sodium Chloride Flush 3 Ml Syringe) 3 ml IVFLUSH QSHIFT [facility] Last Admin: 06/30/24 07:37 Dose: 3 ml Documented By: NAIF Labs 06/29/24 07:17 06/29/24 07:17 Labs: Laboratory Results - last 24 hr 06/29/24 12:16 Respiratory Panel Nunez See Note Adenovirus (Rapid PCR) Not Detected B.pert (TEM-PCR) Not Detected B.parapertussis DNA PCR Not Detected C. pneumoniae DNA (PCR) Not Detected Coronavirus OC43 (PCR) Not Detected Coronavirus HKU1 (PCR) Not Detected Coronavirus 229E (PCR) Not Detected Coronavirus NL63 (PCR) Not Detected Human Metapneumovir PCR Not Detected Influenza A (RT-PCR) Not Detected Influenza B (RT-PCR) Not Detected M. pneumoniae (PCR) Not Detected Parainfluenza 1 (PCR) Detected A Parainfluenza 2 (PCR) Not Detected Parainfluenza 3 (PCR) Not Detected Parainfluenza 4 (PCR) Not Detected RSV (PCR) Not Detected Entero/Rhino (PCR) Not Detected SARS-CoV-2 RNA (RT-PCR) Not Detected Assessment and Plan (1) Hypoxia: Status: Acute (2) Acute exacerbation of chronic obstructive pulmonary disease (COPD): Status: Acute (3) Parainfluenza infection: Status: Acute Plan 68-year-old gentleman with past medical history of COPD/asthma not on home O2, opioid dependence with chronic back pain presented to [facility] due to symptoms of shortness of breath and noted to have acute hypoxic respiratory failure likely due to COPD exacerbation. Acute hypoxic respiratory failure due to acute COPD exacerbation due to viral URI Chest x-ray showed no acute infiltrate, respiratory viral pathogen positive for parainfluenza virus Normal WBC, no fevers mild tachycardia due to hypoxia Continue IV steroids, DuoNeb updraft scheduled and as needed, cough medication,Doxycycline 100 mg b.i.d. On Wixela, Spiriva and DuoNeb bid at home Will assess for home O2 eval, prior to discharge, not on home O2 Hypertension elevated blood pressure likely due to hypoxia continue amlodipine 10 mg and hydrochlorothiazide 12.5 mg daily home dose. Follow BP. Chronic back pain stable, continue morphine sulfate 15 mg b.i.d. and as needed oxycodone, Transaminitis seems chronic, no abdominal pain, follow liver enzymes. DVT prophylaxis Lovenox Full code In my clinical judgment patient requires continued inpatient hospitalization for management of acute hypoxic respiratory failure due to acute COPD exacerbation requiring IV steroids/schedule updraft and close respiratory monitoring. Quality Stroke Does the patient have a stroke diagnosis?: No VTE Prior VTE?: No VTE Risk Level:: Medical - moderate - high VTE Device Contraindication: Treatment Not Indicated VTE Drug Contraindication: N/A - Med Ordered
--- NOTE | 2024-06-30 11:23 | MHC.CM.PN ---
PT LIVES WITH HAD NO PREVIOUS SERVICES HAS OWN [facility] DC PLAN HOME NO SERVIES
[2024-06-30] MEDS: Doxycycline Monohydrate 100 MG CAPSULE PO (12:20)
[2024-07-01] VITALS (10 sets, daily range): BP systolic 133–169; BP diastolic 74–85; PULSE 87–101; RESP 16–18; TEMP 36.2–36.7; O2SAT 93–97
[2024-07-01] MEDS: Doxycycline Monohydrate 100 MG CAPSULE PO ×2 (00:25→11:55)
[2024-07-01] MEDS: oxyCODONE HCl Immed Release 5 MG TABLET PO ×3 (06:07→18:43)
[2024-07-01] MEDS: guaiFENesin DM 200/20/10 ML 10 ML SYRUP PO ×4 (06:07→21:09)
[2024-07-01] MEDS: Albuterol/Iprat 2.5/0.5MG 3 ML AMPUL.NEB INHALE ×4 (07:56→19:45)
[2024-07-01] MEDS: amLODIPine Besylate 10 MG TABLET PO (08:32)
[2024-07-01] MEDS: hydroCHLOROthiazide 12.5 MG TABLET PO (08:32)
[2024-07-01] MEDS: Docusate Sodium 100 MG CAPSULE PO (08:33)
[2024-07-01] MEDS: Enoxaparin Sodium 40 MG/0.4 ML SYRINGE SUBCUT (08:33)
[2024-07-01] MEDS: Morphine Sulfate ER 15 MG TABLET.ER PO ×2 (08:34→21:09)
[2024-07-01] MEDS: 0.9 % Sodium Chloride Flush 3 ML SYRINGE IVFLUSH ×3 (10:08→21:10)
[2024-07-01] MEDS: methylPREDNISolone Sod Succ 40 MG/ML VIAL 60 MG IVPUSH ×2 (10:25→21:09)
--- NOTE | 2024-07-01 11:43 | P.PNIM_ITS ---
Subjective Subjective Date of Service: 07/01/24 Interval History: Complaining of persistent shortness of breath bringing up dark yellow phlegm, requiring 4 L of oxygen finger oximetry 97% not on home O2, denies fever, no chills, tolerating diet, no acute events overnight. Review of Systems All other system reviewed and are negative. Physical Exam 2 Vital Signs: Vital Signs: Last Vital Signs Temp 97.1 F 07/01/24 11:26 Pulse 96 07/01/24 11:26 Resp 17 07/01/24 11:26 BP 152/76 H 07/01/24 11:26 Pulse Ox 97 07/01/24 11:26 O2 Del Method Nasal Cannula 07/01/24 11: O2 Flow Rate 4 07/01/24 11:26 BMI result Body Mass Index 29.2 Const: Other: General awake alert, no acute distress. Neck no JVD. CVS regular rate rhythm, Respiratory lungs diminished breath sound, expiratory wheeze, no respiratory distress, Gastrointestinal abdomen soft, non tender, bowel sounds audible, no guarding , no rigidity. Extremities no edema. Neuro non focal Skin no rash psych appropriate affect Objective Data Active Medications Acetaminophen (Acetaminophen 325 Mg Tablet) 650 mg PO Q6H PRN PRN Reason: Pain, Mild (Pain Scale 1-3), fever or headache Last Admin: 06/29/24 22:02 Dose: 650 mg Documented By: SANG Albuterol/Ipratropium (Albuterol/Iprat 2.5/0.5mg 3 Ml Ampul.Neb) 3 ml INHALE RQ4H WHILE AWAKE [facility] Last Admin: 07/01/24 11:06 Dose: 3 ml Documented By: HONEY Albuterol/Ipratropium (Albuterol/Iprat 2.5/0.5mg 3 Ml Ampul.Neb) 3 ml INHALE Q3H PRN PRN Reason: Shortness of Breath Amlodipine Besylate (Amlodipine Besylate 10 Mg Tablet) 10 mg PO DAILY [facility]; Protocol Last Admin: 07/01/24 08:32 Dose: 10 mg Documented By: NAIF Calcium Carbonate (Calcium Carbonate 750 Mg Tab.Chew) 750 mg PO Q4H PRN PRN Reason: Heartburn Docusate Sodium (Docusate Sodium 100 Mg Capsule) 100 mg PO DAILY [facility] Last Admin: 07/01/24 08:33 Dose: 100 mg Documented By: NAIF Doxycycline Monohydrate (Doxycycline Monohydrate 100 Mg Capsule) 100 mg PO Q12H [facility] Last Admin: 07/01/24 00:25 Dose: 100 mg Documented By: FILIBERTO Enoxaparin Sodium (Enoxaparin Sodium 40 Mg/0.4 Ml Syringe) 40 mg SUBCUT Q24H [facility] Last Admin: 07/01/24 08:33 Dose: 40 mg Documented By: NAIF Guaifenesin/Dextromethorphan (Guaifenesin Dm 200/20/10 Ml 10 Ml Syrup) 10 ml PO QID [facility] Hydrochlorothiazide (Hydrochlorothiazide 12.5 Mg Tablet) 12.5 mg PO DAILY [facility]; Protocol Last Admin: 07/01/24 08:32 Dose: 12.5 mg Documented By: NAIF Magnesium Hydroxide (Milk Of Magnesia 30 Ml Oral.Susp) 30 ml PO DAILY PRN PRN Reason: Constipation Melatonin (Melatonin 3 Mg Tablet) 6 mg PO BEDTIME PRN PRN Reason: Insomnia Methylprednisolone Sodium Succinate (Methylprednisolone Sod Succ 40 Mg/Ml Vial) 60 mg IVPUSH Q12H [facility] Last Admin: 07/01/24 10:25 Dose: 60 mg Documented By: NAIF Morphine Sulfate (Morphine Sulfate Er 15 Mg Tablet.Er) 15 mg PO BID [facility] Last Admin: 07/01/24 08:34 Dose: 15 mg Documented By: NAIF Ondansetron HCl (Ondansetron Hcl 4 Mg/2 Ml Vial) 4 mg IVPUSH Q8H PRN PRN Reason: Nausea and Vomiting Oxycodone HCl (Oxycodone Hcl Immed Release 5 Mg Tablet) 5 mg PO Q6H PRN PRN Reason: Pain, Severe (Pain Scale 7-10) Last Admin: 07/01/24 06:07 Dose: 5 mg Documented By: ANTKYLIE Sodium Chloride (0.9 % Sodium Chloride Flush 3 Ml Syringe) 3 ml IVFLUSH QSHIFT [facility] Last Admin: 07/01/24 10:08 Dose: 3 ml Documented By: NAIF Labs 06/29/24 07:17 06/29/24 07:17 Assessment and Plan (1) Parainfluenza infection: Status: Acute (2) Hypoxia: Status: Acute (3) Acute exacerbation of chronic obstructive pulmonary disease (COPD): Status: Acute Plan 68-year-old gentleman with past medical history of COPD/asthma not on home O2, opioid dependence with chronic back pain presented to [facility] due to symptoms of shortness of breath and noted to have acute hypoxic respiratory failure likely due to COPD exacerbation. Acute hypoxic respiratory failure due to acute COPD exacerbation due to viral URI Chest x-ray showed no acute infiltrate, respiratory viral pathogen positive for parainfluenza virus Normal WBC, no fevers, mild tachycardia due to hypoxia Continue IV steroids increased to 60 b.i.d., DuoNeb updraft scheduled and as needed, cough medication,Doxycycline 100 mg b.i.d. On Wixela, Spiriva and DuoNeb bid at home Wean O2 as tolerated, assess for home O2 eval, prior to discharge, not on home O2 Hypertension elevated blood pressure likely due to hypoxia continue amlodipine 10 mg and hydrochlorothiazide 12.5 mg daily home dose. Follow BP. Chronic back pain stable, continue morphine sulfate 15 mg b.i.d. and as needed oxycodone, Transaminitis seems chronic, worsening likely due to viral infection, no abdominal pain, follow liver enzymes. DVT prophylaxis Lovenox Full code In my clinical judgment patient requires continued inpatient hospitalization for management of acute hypoxic respiratory failure due to acute COPD exacerbation requiring IV steroids/schedule updraft and close respiratory monitoring. Quality Stroke Does the patient have a stroke diagnosis?: No VTE Prior VTE?: No VTE Risk Level:: Medical - moderate - high VTE Device Contraindication: Treatment Not Indicated VTE Drug Contraindication: N/A - Med Ordered
--- NOTE | 2024-07-01 13:11 | MHC.CM.PN ---
EMR REVIEWED AND PER MD ROUNDS, PT IS NOT MEDICALLY CLEARED FOR DC (SOB, COUGH PERSISTS) CM WILL CONTINUE TO FOLLOW FOR ANY CHANGE TO DC PLAN/NEEDS.
[2024-07-02] VITALS (10 sets, daily range): BP systolic 123–161; BP diastolic 74–87; PULSE 88–108; RESP 17–20; TEMP 36–36.8; O2SAT 92–96
[2024-07-02] MEDS: Doxycycline Monohydrate 100 MG CAPSULE PO ×2 (00:02→11:40)
[2024-07-02 05:53] LABS: Hematocrit 51.4 % (37.0-47.0); Mean Corpuscular HGB Conc 33.1 g/dl (31.0-35.0); Mean Corpuscular Hemoglobin 30.4 pg (27.0-33.0); Mean Corpuscular Volume 91.8 fL (80.0-98.0); Mean Platelet Volume 9.1 fL (9.4-12.3); Platelet Count 168 X10*3/uL (160-400); Red Cell Distribution Width 12.5 % (11.0-16.0); White Blood Count 7.6 X10*3/uL (4.8-10.8)
[2024-07-02 06:11] LABS: Alanine Aminotransferase 46 U/L (0-31); Albumin Level 4.2 g/dL (3.5-5.0); Alkaline Phosphatase 83 U/L (39-117); Anion Gap 18 (12-20); Aspartate Amino Transferase 23 U/L (5-31); Bilirubin Direct 0.1 mg/dL (0.0-0.5); Bilirubin Total 0.4 mg/dL (0.0-1.0); Blood Urea Nitrogen 20 mg/dL (9-16); Calcium 9.3 mg/dL (8.4-10.2); Carbon Dioxide 25 mmol/L (22-29); Chloride 102 mmol/L (96-108); Creatinine Clr Calc Pharmacy 69.2; Estimated Glomerular Filt Rate > 60; Glucose Random 171 mg/dL (60-115); Potassium 4.4 mmol/L (3.3-5.1); Sodium 141 mmol/L (135-145); Total Protein 7.2 g/dL (6.5-8.0)
[2024-07-02] MEDS: Albuterol/Iprat 2.5/0.5MG 3 ML AMPUL.NEB INHALE ×4 (07:35→18:02)
[2024-07-02] MEDS: hydroCHLOROthiazide 12.5 MG TABLET PO (07:37)
[2024-07-02] MEDS: Docusate Sodium 100 MG CAPSULE PO (07:37)
[2024-07-02] MEDS: amLODIPine Besylate 10 MG TABLET PO (07:37)
[2024-07-02] MEDS: guaiFENesin DM 200/20/10 ML 10 ML SYRUP PO ×4 (07:37→20:24)
[2024-07-02] MEDS: Morphine Sulfate ER 15 MG TABLET.ER PO ×2 (07:38→20:24)
[2024-07-02] MEDS: 0.9 % Sodium Chloride Flush 3 ML SYRINGE IVFLUSH ×3 (07:39→20:25)
[2024-07-02] MEDS: Enoxaparin Sodium 40 MG/0.4 ML SYRINGE SUBCUT (09:27)
[2024-07-02] MEDS: methylPREDNISolone Sod Succ 40 MG/ML VIAL 60 MG IVPUSH (09:27)
[2024-07-02] MEDS: polyethylene glycoL 3350 17 GM POWD.PACK PO (11:40)
[2024-07-02] MEDS: oxyCODONE HCl Immed Release 5 MG TABLET PO ×2 (12:03→18:27)
--- NOTE | 2024-07-02 13:26 | P.PNIM_ITS ---
Subjective Subjective Date of Service: 07/02/24 Interval History: Seen and examined this morning Follow-up for COPD exacerbation, parainfluenza Continues to have productive cough, overall breathing beginning to improve No fever Review of Systems Review of Systems: Yes all other systems are reviewed and are negative Constitutional Constitutional: Denies chills and Denies fever(s) Cardiovascular Cardiovascular: Denies chest pain, Denies palpitations and Reports dyspnea Respiratory Respiratory: Reports cough and Reports dyspnea Gastrointestinal Gastrointestinal: Denies abdominal pain Endocrine Endocrine: Denies palpitations Physical Exam 2 Vital Signs: Vital Signs: Last Vital Signs Temp 98.2 F 07/02/24 11:46 Pulse 102 H 07/02/24 11:46 Resp 17 07/02/24 11:46 BP 150/79 H 07/02/24 11:46 Pulse Ox 95 07/02/24 11:46 O2 Del Method Nasal Cannula 07/02/24 11:46 O2 Flow Rate 3 07/02/24 11:46 BMI result Body Mass Index 29.2 Const: General: cooperative, comfortable, no acute distress, alert and awake Nutritional Appearance: average body habitus Orientation/consciousness: p atient oriented x3 Resp: Other: b/l expiratory wheeze Effort & Inspection: normal respiratory effort, able to speak in complete sentences, no respiratory distress and no use of accessory muscles Cardio: Rate: regular rate GI: Inspection: No distended Palpation (GI): Soft to palpation and nontender Neuro: General: patient oriented x3, moves all extremities and CN's II-XI intact bilaterally Extrem: General: Yes no pedal edema Objective Data Active Medications Acetaminophen (Acetaminophen 325 Mg Tablet) 650 mg PO Q6H PRN PRN Reason: Pain, Mild (Pain Scale 1-3), fever or headache Last Admin: 06/29/24 22:02 Dose: 650 mg Documented By: MARIA ELENAILChantelle Albuterol/Ipratropium (Albuterol/Iprat 2.5/0.5mg 3 Ml Ampul.Neb) 3 ml INHALE RQ4H WHILE AWAKE [facility] Last Admin: 07/02/24 11:06 Dose: 3 ml Documented By: HONEY Albuterol/Ipratropium (Albuterol/Iprat 2.5/0.5mg 3 Ml Ampul.Neb) 3 ml INHALE Q3H PRN PRN Reason: Shortness of Breath Amlodipine Besylate (Amlodipine Besylate 10 Mg Tablet) 10 mg PO DAILY [facility]; Protocol Last Admin: 07/02/24 07:37 Dose: 10 mg Documented By: NAIF Calcium Carbonate (Calcium Carbonate 750 Mg Tab.Chew) 750 mg PO Q4H PRN PRN Reason: Heartburn Docusate Sodium (Docusate Sodium 100 Mg Capsule) 100 mg PO DAILY [facility] Last Admin: 07/02/24 07:37 Dose: 100 mg Documented By: NAIF Doxycycline Monohydrate (Doxycycline Monohydrate 100 Mg Capsule) 100 mg PO Q12H [facility] Last Admin: 07/02/24 11:40 Dose: 100 mg Documented By: NAIF Enoxaparin Sodium (Enoxaparin Sodium 40 Mg/0.4 Ml Syringe) 40 mg SUBCUT Q24H [facility] Last Admin: 07/02/24 09:27 Dose: 40 mg Documented By: NAIF Guaifenesin/Dextromethorphan (Guaifenesin Dm 200/20/10 Ml 10 Ml Syrup) 10 ml PO QID [facility] Last Admin: 07/02/24 12:03 Dose: 10 ml Documented By: NAIF Hydrochlorothiazide (Hydrochlorothiazide 12.5 Mg Tablet) 12.5 mg PO DAILY [facility]; Protocol Last Admin: 07/02/24 07:37 Dose: 12.5 mg Documented By: NAIF Magnesium Hydroxide (Milk Of Magnesia 30 Ml Oral.Susp) 30 ml PO DAILY PRN PRN Reason: Constipation Melatonin (Melatonin 3 Mg Tablet) 6 mg PO BEDTIME PRN PRN Reason: Insomnia Methylprednisolone Sodium Succinate (Methylprednisolone Sod Succ 40 Mg/Ml Vial) 60 mg IVPUSH Q12H [facility] Last Admin: 07/02/24 09:27 Dose: 60 mg Documented By: NAIF Morphine Sulfate (Morphine Sulfate Er 15 Mg Tablet.Er) 15 mg PO BID [facility] Last Admin: 07/02/24 07:38 Dose: 15 mg Documented By: NAIF Ondansetron HCl (Ondansetron Hcl 4 Mg/2 Ml Vial) 4 mg IVPUSH Q8H PRN PRN Reason: Nausea and Vomiting Oxycodone HCl (Oxycodone Hcl Immed Release 5 Mg Tablet) 5 mg PO Q6H PRN PRN Reason: Pain, Severe (Pain Scale 7-10) Last Admin: 07/02/24 12:03 Dose: 5 mg Documented By: NAIF Polyethylene Glycol (Polyethylene Glycol 3350 17 Gm Powd.Pack) 17 gm PO DAILY [facility] Last Admin: 07/02/24 11:40 Dose: 17 gm Documented By: NAIF Sodium Chloride (0.9 % Sodium Chloride Flush 3 Ml Syringe) 3 ml IVFLUSH QSHIFT [facility] Last Admin: 07/02/24 07:39 Dose: 3 ml Documented By: NAIF Labs 07/02/24 05:32 07/02/24 05:32 Labs: Laboratory Results - last 24 hr 07/02/24 05:32 MCV 91.8 MCH 30.4 MCHC 33.1 RDW 12.5 Plt Count 168 MPV 9.1 L Absolute Nucleated RBC 0.000 Nucleated RBC % (auto) 0.0 Anion Gap 18 Estim Creat Clear Calc 69.2 Estimated GFR > 60 Random Glucose 171 H Calcium 9.3 Total Bilirubin 0.4 Direct Bilirubin 0.1 AST 23 ALT 46 H Alkaline Phosphatase 83 Total Protein 7.2 Albumin 4.2 Assessment and Plan (1) Parainfluenza infection: Status: Acute (2) Acute exacerbation of chronic obstructive pulmonary disease (COPD): Status: Acute Plan 68-year-old gentleman with past medical history of COPD/asthma not on home O2, opioid dependence with chronic back pain presented to [facility] due to symptoms of shortness of breath and noted to have acute hypoxic respiratory failure likely due to COPD exacerbation. Acute hypoxic respiratory failure due to acute COPD exacerbation due to viral URI Chest x-ray showed no acute infiltrate, respiratory viral pathogen positive for parainfluenza virus Normal WBC, no fevers, mild tachycardia due to hypoxia will begin to wean IV solu-medrol DuoNeb updraft scheduled and as needed, cough medication, Doxycycline 100 mg b.i.d. (started 06/29) On Wixela, Spiriva and DuoNeb bid at home Wean O2 as tolerated, assess for home O2 eval prior to discharge, not on home O2 Hypertension elevated blood pressure likely due to hypoxia continue amlodipine 10 mg and hydrochlorothiazide 12.5 mg daily home dose. Follow BP. Chronic back pain stable continue morphine sulfate 15 mg b.i.d. and as needed oxycodone, Transaminitis seems chronic, worsening likely due to viral infection, no abdominal pain, follow liver enzymes. DVT prophylaxis Lovenox Full code In my clinical judgment patient requires continued inpatient hospitalization for management of acute hypoxic respiratory failure due to acute COPD exacerbation requiring IV steroids/schedule updraft and close respiratory monitoring. Quality Stroke Does the patient have a stroke diagnosis?: No VTE Prior VTE?: No VTE Risk Level:: Medical - moderate - high VTE Device Contraindication: Treatment Not Indicated VTE Drug Contraindication: N/A - Med Ordered
[2024-07-02] MEDS: methylPREDNISolone Sod Succ 40 MG/ML VIAL IVPUSH (20:25)
[2024-07-03] VITALS (10 sets, daily range): BP systolic 128–166; BP diastolic 60–87; PULSE 83–98; RESP 14–20; TEMP 36–36.5; O2SAT 92–97
[2024-07-03] MEDS: oxyCODONE HCl Immed Release 5 MG TABLET PO ×5 (00:29→22:05)
[2024-07-03] MEDS: Doxycycline Monohydrate 100 MG CAPSULE PO ×3 (00:29→23:47)
[2024-07-03] MEDS: Albuterol/Iprat 2.5/0.5MG 3 ML AMPUL.NEB INHALE ×4 (07:30→19:50)
[2024-07-03] MEDS: guaiFENesin DM 200/20/10 ML 10 ML SYRUP PO ×4 (08:20→20:49)
[2024-07-03] MEDS: polyethylene glycoL 3350 17 GM POWD.PACK PO (08:20)
[2024-07-03] MEDS: Docusate Sodium 100 MG CAPSULE PO (08:20)
[2024-07-03] MEDS: amLODIPine Besylate 10 MG TABLET PO (08:21)
[2024-07-03] MEDS: hydroCHLOROthiazide 12.5 MG TABLET PO (08:21)
[2024-07-03] MEDS: Morphine Sulfate ER 15 MG TABLET.ER PO ×2 (08:21→20:49)
[2024-07-03] MEDS: 0.9 % Sodium Chloride Flush 3 ML SYRINGE IVFLUSH ×3 (08:21→23:48)
[2024-07-03] MEDS: Enoxaparin Sodium 40 MG/0.4 ML SYRINGE SUBCUT (08:23)
[2024-07-03] MEDS: methylPREDNISolone Sod Succ 40 MG/ML VIAL IVPUSH ×2 (08:23→20:49)
--- NOTE | 2024-07-03 13:41 | HO.PM.IMPN ---
Subjective Subjective Date of Service: 07/03/24 Interval History: Seen and examined this morning Follow-up for COPD exacerbation, parainfluenza Still reporting dyspnea on exertion, significant wheezing although overall slowly improving Review of Systems Review of Systems: Yes all other systems are reviewed and are negative Constitutional Constitutional: Denies chills and Denies fever(s) Cardiovascular Cardiovascular: Denies chest pain, Denies palpitations and Denies dyspnea Respiratory Respiratory: Denies cough and Denies dyspnea Gastrointestinal Gastrointestinal: Denies abdominal pain, Denies nausea and Denies vomiting Endocrine Endocrine: Denies palpitations Physical Exam Vital Signs: Vital Signs: Last Vital Signs Temp 97.6 F 07/03/24 11:44 Pulse 87 07/03/24 11:45 Resp 18 07/03/24 11:45 BP 139/81 07/03/24 11:44 Pulse Ox 93 07/03/24 11:44 O2 Del Method Nasal Cannula 07/03/24 11:44 O2 Flow Rate 1 07/03/24 11:44 BMI result Body Mass Index 29.2 Const: General: cooperative, comfortable, no acute distress, alert and awake Nutritional Appearance: average body habitus Orientation/consciousness: patient oriented x3 Resp: Other: b/l expiratory wheeze Effort & Inspection: normal respiratory effort, able to speak in complete sentences, no respiratory distress and no use of accessory muscles Cardio: Rate: regular rate GI: Inspection: No distended Palpation (GI): Soft to palpation and nontender Neuro: General: patient oriented x3, moves all extremities and CN's II-XI intact bilaterally Extrem: General: Yes no pedal edema Objective Data Active Medications Acetaminophen (Acetaminophen 325 Mg Tablet) 650 mg PO Q6H PRN PRN Reason: Pain, Mild (Pain Scale 1-3), fever or headache Last Admin: 06/29/24 22:02 Dose: 650 mg Documented By: SANG Albuterol/Ipratropium (Albuterol/Iprat 2.5/0.5mg 3 Ml Ampul.Neb) 3 ml INHALE RQ4H WHILE AWAKE [facility] Last Admin: 07/03/24 11:43 Dose: 3 ml Documented By: MARICRUZ Albuterol/Ipratropium (Albuterol/Iprat 2.5/0.5mg 3 Ml Ampul.Neb) 3 ml INHALE Q3H PRN PRN Reason: Shortness of Breath Amlodipine Besylate (Amlodipine Besylate 10 Mg Tablet) 10 mg PO DAILY [facility]; Protocol Last Admin: 07/03/24 08:21 Dose: 10 mg Documented By: KELLY Calcium Carbonate (Calcium Carbonate 750 Mg Tab.Chew) 750 mg PO Q4H PRN PRN Reason: Heartburn Docusate Sodium (Docusate Sodium 100 Mg Capsule) 100 mg PO DAILY [facility] Last Admin: 07/03/24 08:20 Dose: 100 mg Documented By: KELLY Doxycycline Monohydrate (Doxycycline Monohydrate 100 Mg Capsule) 100 mg PO Q12H [facility] Last Admin: 07/03/24 00:29 Dose: 100 mg Documented By: PHIL Enoxaparin Sodium (Enoxaparin Sodium 40 Mg/0.4 Ml Syringe) 40 mg SUBCUT Q24H [facility] Last Admin: 07/03/24 08:23 Dose: 40 mg Documented By: KELLY Guaifenesin/Dextromethorphan (Guaifenesin Dm 200/20/10 Ml 10 Ml Syrup) 10 ml PO QID [facility] Last Admin: 07/03/24 08:20 Dose: 10 ml Documented By: KELLY Hydrochlorothiazide (Hydrochlorothiazide 12.5 Mg Tablet) 12.5 mg PO DAILY [facility]; Protocol Last Admin: 07/03/24 08:21 Dose: 12.5 mg Documented By: KELLY Magnesium Hydroxide (Milk Of Magnesia 30 Ml Oral.Susp) 30 ml PO DAILY PRN PRN Reason: Constipation Melatonin (Melatonin 3 Mg Tablet) 6 mg PO BEDTIME PRN PRN Reason: Insomnia Methylprednisolone Sodium Succinate (Methylprednisolone Sod Succ 40 Mg/Ml Vial) 40 mg IVPUSH Q12H [facility] Last Admin: 07/03/24 08:23 Dose: 40 mg Documented By: KELLY Morphine Sulfate (Morphine Sulfate Er 15 Mg Tablet.Er) 15 mg PO BID [facility] Last Admin: 07/03/24 08:21 Dose: 15 mg Documented By: KELLY Ondansetron HCl (Ondansetron Hcl 4 Mg/2 Ml Vial) 4 mg IVPUSH Q8H PRN PRN Reason: Nausea and Vomiting Oxycodone HCl (Oxycodone Hcl Immed Release 5 Mg Tablet) 5 mg PO Q6H PRN PRN Reason: Pain, Severe (Pain Scale 7-10) Last Admin: 07/03/24 08:20 Dose: 5 mg Documented By: KELLY Polyethylene Glycol (Polyethylene Glycol 3350 17 Gm Powd.Pack) 17 gm PO DAILY [facility] Last Admin: 07/03/24 08:20 Dose: 17 gm Documented By: KELLY Sodium Chloride (0.9 % Sodium Chloride Flush 3 Ml Syringe) 3 ml IVFLUSH QSHIFT [facility] Last Admin: 07/03/24 08:21 Dose: 3 ml Documented By: KELLY Labs 07/02/24 05:32 07/02/24 05:32 Assessment and Plan (1) Parainfluenza infection: Status: Acute (2) Acute exacerbation of chronic obstructive pulmonary disease (COPD): Status: Acute Plan 68-year-old gentleman with past medical history of COPD/asthma not on home O2, opioid dependence with chronic back pain presented to [facility] due to symptoms of shortness of breath and noted to have acute hypoxic respiratory failure likely due to COPD exacerbation. Acute hypoxic respiratory failure due to acute COPD exacerbation due to viral URI Chest x-ray showed no acute infiltrate, respiratory viral pathogen positive for parainfluenza virus Normal WBC, no fevers, mild tachycardia due to hypoxia will begin to wean IV solu-medrol DuoNeb updraft scheduled and as needed, cough medication, Doxycycline 100 mg b.i.d. (started 06/29) On Wixela, Spiriva and DuoNeb bid at home Wean O2 as tolerated, assess for home O2 eval prior to discharge, not on home O2 Hypertension elevated blood pressure likely due to hypoxia continue amlodipine 10 mg and hydrochlorothiazide 12.5 mg daily home dose. Follow BP. Chronic back pain stable continue morphine sulfate 15 mg b.i.d. and as needed oxycodone, Transaminitis seems chronic trending down DVT prophylaxis Lovenox Full code In my clinical judgment patient requires continued inpatient hospitalization for management of acute hypoxic respiratory failure due to acute COPD exacerbation requiring IV steroids/schedule updraft and close respiratory monitoring. Quality Stroke Does the patient have a stroke diagnosis?: No VTE Prior VTE?: No VTE Risk Level:: Medical - moderate - high VTE Device Contraindication: Treatment Not Indicated VTE Drug Contraindication: N/A - Med Ordered
--- NOTE | 2024-07-03 15:35 | MHC.CM.PN ---
EMR reviewed and per MD rounds, pt is not medically cleared for discharge due to management of COPD exacerbation.
[2024-07-04 03:38] VITALS: BP 147/97; PULSE 84; RESP 16; TEMP 36.1; O2SAT 93
[2024-07-04 06:58] LABS: Hemoglobin 17.6 g/dl (12.0-16.0); Mean Corpuscular HGB Conc 32.6 g/dl (31.0-35.0); Mean Corpuscular Hemoglobin 30.1 pg (27.0-33.0); Mean Corpuscular Volume 92.3 fL (80.0-98.0); Mean Platelet Volume 9.4 fL (9.4-12.3); Platelet Count 166 X10*3/uL (160-400); Red Blood Count 5.85 X10*6/uL (4.20-5.50); Red Cell Distribution Width 12.3 % (11.0-16.0); White Blood Count 8.2 X10*3/uL (4.8-10.8)
[2024-07-04 07:40] VITALS: PULSE 84; RESP 16; O2SAT 93
[2024-07-04] MEDS: Albuterol/Iprat 2.5/0.5MG 3 ML AMPUL.NEB INHALE ×2 (07:40→11:38)
[2024-07-04 07:43] VITALS: BP 142/84; PULSE 89; RESP 18; TEMP 36.6; O2SAT 98
[2024-07-04] MEDS: methylPREDNISolone Sod Succ 40 MG/ML VIAL IVPUSH (08:20)
[2024-07-04] MEDS: polyethylene glycoL 3350 17 GM POWD.PACK PO (08:20)
[2024-07-04] MEDS: amLODIPine Besylate 10 MG TABLET PO (08:20)
[2024-07-04] MEDS: Docusate Sodium 100 MG CAPSULE PO (08:20)
[2024-07-04] MEDS: Morphine Sulfate ER 15 MG TABLET.ER PO (08:20)
[2024-07-04] MEDS: hydroCHLOROthiazide 12.5 MG TABLET PO (08:20)
[2024-07-04] MEDS: guaiFENesin DM 200/20/10 ML 10 ML SYRUP PO ×2 (08:20→12:44)
[2024-07-04] MEDS: oxyCODONE HCl Immed Release 5 MG TABLET PO (08:21)
[2024-07-04] MEDS: Enoxaparin Sodium 40 MG/0.4 ML SYRINGE SUBCUT (08:21)
[2024-07-04] MEDS: 0.9 % Sodium Chloride Flush 3 ML SYRINGE IVFLUSH (08:22)
[2024-07-04 09:10] VITALS: O2SAT 92
[2024-07-04 10:43] VITALS: PULSE 110; PULSE 111; PULSE 112; O2SAT 82; O2SAT 86; O2SAT 88; O2SAT 90
--- NOTE | 2024-07-04 10:57 | P.DS_ITS ---
DS: Providers Provider Date of Service: 07/04/24 Date of admission: 06/29/24 09:54 Date of discharge: 07/04/24 Primary care physician: Lonny Bentley MD Attending physician on discharge: Leo Barksdale Discharging clinician: Ginny Andrade DS: Diagnosis Discharge Diagnosis (1) Parainfluenza infection: Status: Acute (2) Acute exacerbation of chronic obstructive pulmonary disease (COPD): Status: Acute DS: Summary Hospital Course Hospital Course: From H&P on the day of admission 69-year-old female former smoker with 30 pack year history quit 18 years ago, history of underlying COPD, asthma, history of opioid dependence, chronic lower back pain was 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 seen by 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 associate and was doing fine on her baseline regimen of DuoNeb b.i.d., albuterol as needed, Spiriva and Wixela, patient returned from [facility] 1- 1/2 week ago and received her COVID vaccine 4 days ago and developed worsening shortness of breath, cough productive of clear phlegm felt sweaty with episodes of shortness of breath denies allergy symptoms of runny nose itchy watery eyes or sneezing, denies fever, no chills, no other family member is sick, in [place] [facility] [place] patient noted to be hypoxic, finger oximetry 85-87% on room air EKG showed normal sinus rhythm no acute ST or T-wave changes, chest x-ray showed no acute infiltrate, patient noted to have normal electrolytes, renal function and CBC, She was treated IV steroids and updraft and now being admitted to [facility] with a diagnosis of acute hypoxic respiratory failure due to COPD exacerbation likely due to viral infection versus acute bronchitis. Acute hypoxic respiratory failure due to acute COPD exacerbation due to viral URI Chest x-ray showed no acute infiltrate, respiratory viral pathogen positive for parainfluenza virus Normal WBC, no fevers, mild tachycardia which has resolved. Treated with IV solu-medrol, DuoNeb updraft scheduled and as needed, cough medication, Doxyc ycline 100 mg b.i.d. (started 06/29), completed course during hospitalization. Wean off supplemental oxygen at rest, but had home o2 eval and requires 3L supplemental oxygen with ambulation. overall breathing has improved significantly since admission and she is eager to return home. She will be discharged home with prolonged prednisone taper. Time Attestation Discharge Coordination Time (in mins): 36 Quality: Safe Use of Opioids Does Pt have an Active Cancer Diagnosis on the Problem List?: No Quality: Stroke Does the patient have a stroke diagnosis?: No Physical Exam Vital Signs: Vital Signs: Last Vital Signs Temp 97.8 F 07/04/24 07:43 Pulse 89 07/04/24 07:43 Resp 18 07/04/24 07:43 BP 142/84 H 07/04/24 07:43 Pulse Ox 92 07/04/24 09:10 O2 Del Method Room Air 07/04/24 09:10 O2 Flow Rate 1 07/04/24 07:43 BMI result Body Mass Index 29.2 Const: General: cooperative, comfortable, no acute distress, alert and awake Nutritional Appearance: average body habitus Orientation/consciousness: patient oriented x3 Resp: Other: b/l expiratory wheeze significantly improved, better air entry Effort & Inspection: normal respiratory effort, able to speak in complete sentences, no respiratory distress and no use of accessory muscles Cardio: Rate: regular rate GI: Inspection: No distended Palpation (GI): Soft to palpation and nonten rima Neuro: General: patient oriented x3, moves all extremities and CN's II-XI intact bilaterally Extrem: General: Yes no pedal edema DS: Data Data Completed and Pending Labs on day of discharge: Laboratory Results - last 24 hr 07/04/24 05:52 WBC 8.2 RBC 5.85 H Hgb 17.6 H Hct 54.0 H MCV 92.3 MCH 30.1 MCHC 32.6 RDW 12.3 Plt Count 166 MPV 9.4 Absolute Nucleated RBC 0.000 Nucleated RBC % (auto) 0.0 Discharge Plan Discharge Anticipated Discharge Date/Time: 07/04/24 11:40 Patient Disposition: Home, Self-Care Discharge Diagnosis: COPD exacerbation parainfluenza virus Referrals: Lonny Bentley MD [Primary Care Provider] - 1 Week Discharge Medications: New prednisone 10 mg tablet See Taper PO DIRECTED Qty: 50 0RF Taper: Prednisone 40 mg daily for 5 Days and 0 Hour 30 mg daily for 5 Days and 0 Hour 20 mg daily for 5 Days and 0 Hour 10 mg daily for 5 Days and 0 Hour Rx Instructions: see taper instructions Continued morphine 15 mg Tablet Extended Release 15 mg PO BID hydrochlorothiazide 12.5 mg Tablet 12.5 mg PO DAILY oxycodone 10 mg Tablet 10 mg PO QID PRN (Reason: Pain, Moderate) multivitamin Tablet 1 tab PO DAILY ipratropium-albuterol 0.5 mg-3 mg(2.5 mg base)/3 mL Solution For Nebulization 3 ml INHALATION QID PRN (Reason: Wheezing) ibuprofen 800 mg Tablet 800 mg PO TID PRN (Reason: Pain) naloxone 0.4 mg/mL Solution 0.4 mg SUBCUT Q3M PRN (Reason: overdose) Rx Instructions: NTExceed 10 mg total dose/episode alendronate 70 mg Tablet 70 mg PO MO Rx Instructions: on mondays amlodipine 10 mg Tablet 10 mg PO DAILY fluticasone propion-salmeterol [Wixela Inhub] 500-50 mcg/dose Blister With Device 1 inh INHALATION BID docusate sodium 100 mg Capsule 100 mg PO DAILY Spiriva Respimat 2.5 mcg/actuation Mist 2 puff INHALATION DAILY albuterol sulfate 90 mcg/actuation HFA aerosol inhaler 2 puff inhalation Q4H PRN (Reason: shortness of breath or wheezing) Discharge Orders: Discharge Order (Routine); Ordered 07/04/24 Ordered By: Ginny Andrade Activity on Discharge: As tolerated Stand Alone Forms: Patient Portal Discharge page Print Language: Greenlandic Care Plan Goals: See below Health Concerns: Acute COPD exacerbation due to parainfluenza virus Plan of Treatment: Complete prednisone taper as prescribed Have completed course of antibiotics during hospitalization Call to schedule follow-up appointment with PCP You have qualified for 3 L of supplemental oxygen during ambulation Assessment: See discharge summary
--- NOTE | 2024-07-04 12:04 | MHC.CM.PN ---
pt dcd home self cafe
[2024-07-04] MEDS: Doxycycline Monohydrate 100 MG CAPSULE PO (12:44)
== END 2024-07-04 13:20 | disposition home or self-care (01) | DRG 190 ==
LOC: HO.ED 09:30 → HO.EDOVER 10:16 → HO.S3 16:47
PROVIDERS: Admitting Provider Hospitalist; Emergency Provider Emergency Medicine; PCP Family Medicine; Visit Provider Physician Assistant Medical
DX: J44.1 Chronic obstructive pulmonary disease with (acute) exacerbation (principal); J96.01 Acute respiratory failure with hypoxia; F11.20 Opioid dependence, uncomplicated; I10 Essential (primary) hypertension; J44.0 Chronic obstructive pulmonary disease with (acute) lower respiratory infection; J20.9 Acute bronchitis, unspecified; M54.50 Low back pain, unspecified; B97.89 Other viral agents as the cause of diseases classified elsewhere; G89.29 Other chronic pain; F17.210 Nicotine dependence, cigarettes, uncomplicated; Z20.822 Contact with and (suspected) exposure to COVID-19; Z71.6 Tobacco abuse counseling; Z79.51 Long term (current) use of inhaled steroids; Z79.899 Other long term (current) drug therapy
CPT/HCPCS: 36415; 71045; 80048; 80053; 80076; 82803; 83880; 84484; 85025; 85027; 87633; 93005; 94640; 94664; 99285; J1650; J2919

== ENCOUNTER → 2024-06-29 07:10 | Outpatient (BNV) | payer MEDICARE, OTHER, SELFPAY | PROVIDERS: Admitting Provider Hospitalist; Emergency Provider Emergency Medicine; PCP Family Medicine; Visit Provider Internal Medicine | DX: R06.02 Shortness of breath (principal) | CPT/HCPCS: 93010 ==

== ENCOUNTER → 2024-06-29 09:54 | Outpatient (BNV) | payer MEDICARE, OTHER, SELFPAY | PROVIDERS: Admitting Provider Hospitalist; Emergency Provider Emergency Medicine; PCP Family Medicine; Visit Provider Hospitalist | DX: J44.1 Chronic obstructive pulmonary disease with (acute) exacerbation (principal); B34.8 Other viral infections of unspecified site; M54.9 Dorsalgia, unspecified | CPT/HCPCS: 99223; 99232; 99239 ==

== ENCOUNTER 2024-08-05 09:52 | Outpatient (AMB) | payer MEDICARE, OTHER, SELFPAY ==
--- NOTE | 2024-08-05 10:05 | MHC.OFFVIS ---
Vital Signs 08/05/24 10:06 08/05/24 10:10 Height 5 ft 4 in Weight 151 lb 2 oz BMI 25.9 BP 100/64 Blood Pressure Location Lt brachial Position Sitting Pulse 112 H 104 H Pulse Source Pulse Oximeter Pulse Oximeter Pulse Oximetry (%) 72 L 91 L Oxygen Delivery Method Room Air Room Air Intake Visit Reasons: COPD Allergies No Known Allergies Allergy (Verified 08/05/24 10:11) HPI HPI COPD: Details: Bernie is a pleasant 69 year old female, former smoker with 30 pack year history, quit 18 yrs ago, with underlying COPD, asthma and h/o acute respiratory failure with hypoxemia 11/2023. At baseline reports moderate control on current regimen of Wixela and Spiriva, using Duoneb QD and albuterol PRN. Today she presents for a hospital follow up. She was [place] [facility] [place] for acute hypoxic respiratory failure due to acute COPD exacerbation due to viral URI had a recent cruise. Chest x-ray unremarkable. Respiratory panel positive for parainfluenza. She was treated with doxycycline and prednisone and discharged with 3 L of supplemental oxygen with exertion. Today she presents with continued productive cough, yellow sputum dyspnea and wheezing. She denies fever chills. [facility] Medical History COPD (chronic obstructive pulmonary disease) Opioid dependence Chronic low back pain Pulmonary nodule Social History Household Members: Spouse Housing: House Do you presently have visiting nurse or other home services: No Patient Tobacco Use Status: Former Tobacco user Tobacco use type: Cigarette Cigarette Packs Per Day: 1 Years Smoked: 30 service: No Current occupational status: retired Review of Systems Const Denies chills, Denies excessive sweating, Denies fever(s), Denies headache(s) and Denies night sweats Eyes Denies dry eyes, Denies irritation and Denies itchy eyes ENT Reports Normal hearing present, Denies headache(s), Denies nasal congestion, Denies nasal discharge, Denies post nasal drip and Denies sore throat Card Denies chest pain, Denies chest pain at rest, Denies chest pain with activity, Denies claudication, Denies leg edema, Denies orthopnea and Denies paroxysmal nocturnal dyspnea Resp Denies pain on inspiration, Denies pain with cough and Denies stridor Musc Denies myalgias Neuro Reports Normal hearing present and Denies headache(s) Endo Denies excessive sweating Miguel/Lymph Denies lymphadenopathy Aller/Immun Denies itchy eyes and Denies seasonal rhinorrhea Physical Exam Vital Signs: Last Vital Signs Pulse 104 H 08/05/24 10:10 BP 100/64 08/05/24 10:06 Pulse Ox 91 L 08/05/24 10:10 Oxygen Delivery Method Room Air 08/05/24 10:10 BMI result Body Mass Index 25.9 Const General: cooperative, no acute distress, well developed and alert Orientation/consciousness: patient oriented x3 Limitations: no limitations HEENT Head: Yes normal to inspection, Yes normocephalic and Yes atraumatic Ears: hearing grossly normal bilaterally and external ears normal Eyes General: appearance normal, both eyes and all related structures Eyelids: Yes eyelids normal Sclerae: sclerae normal EOM: EOMs intact bilaterally Neck Neck: Yes normal visual inspection and Yes no lymphadenopathy Lymphatic: no lymphadenopathy noted Chest Chest palpation & inspection: normal inspection of the chest Resp Effort & Inspection: normal respiratory effort, able to speak in complete sentences, Actively coughing Quality: productive, no stridor, not tachypneic, no tripod positioning and no use of accessory muscles Auscultation: wheezes and diminished lung sounds Cardio Jugular venous distension: no JVD Rate: regular rate Rhythm: regular rhythm Skin Other: warm, dry General skin exam: no rashes or lesions noted Neuro General: patient oriented x3 Cranial nerves: Yes Normal hearing present Cognition (Neuro): normal cognition Gait exam (Neuro): Normal gait present Extrem General: Yes normal to inspection, Yes capillary refill normal, Yes no clubbing, cyanosis or edema and Yes no pedal edema Psych Appearance: grossly normal and well kempt Speech and movement: Normal speech and movement present and Clear speech present Affect: normal affect Attitude: cooperative Thought process: Normal thought process present Thought content: Normal thought content present Insight: Good insight present (Psych) Judgement: Good judgement present (Psych) Office Procedures Nebulizer Treatment Nebulizer Treatment [id number] RX initial, or Nebulizer Subsequent Treatment Office Meds ipratropium 0.5 mg-albuterol 3 mg (2.5 mg base)/3 mL nebulization marian Performing Provider: Maira Fuller NP Performing Location[place] [facility] Administered by: Nany Jones LPN on 08/05/24 10:55 Dose Route Admin Location Dispensed Lot Number Expiration Date [employer] 3 mL inhalation 3 mL [id number] 11/30/25 [id number] [place] Assessment & Plan Assessment & Plan (1) COPD (chronic obstructive pulmonary disease): Code(s): J44.9 - Chronic obstructive pulmonary disease, unspecified Category: Medical Qualifiers: COPD type: COPD with acute exacerbation Qualified Code(s): J44.1 - Chronic obstructive pulmonary disease with (acute) exacerbation (2) Pulmonary nodule: Code(s): R91.1 - Solitary pulmonary nodule Category: Medical (3) History of acute respiratory failure: Code(s): Z87.09 - Personal history of other diseases of the respiratory system Category: Medical Plan Bernie reports continued bronchitic symptoms since discharge. Will treat with Augmentin and prednisone. She was given DuoNeb in office with improvement in aeration however continued with expiratory wheezing. She is aware to call office if symptoms do not improve and to seek emergent care if symptoms worsen. We had long discussion regarding supplemental oxygen as well as adverse effects of hypoxia. Encourage patient to continue to use 3 L of supplemental oxygen with exertion and 1 L at rest. Goal is to keep oxygen saturation greater than 90%. Discussed a referral to pulmonary rehab however she would like to hold off at this time. Will also prescribe Daliresp, to be started after she completes Augmentin due to GI side effects. Side effects of Daliresp reviewed and she was given informational handout from up-to-date. All questions were answered and patient is in agreement of plan. Will follow-up in 4-6 weeks or sooner if needed. Orders: Orders XR chest 2V 08/05/24 Z87.01 - Personal history of pneumonia (recurrent) AMB Nebulizer Treatment 08/05/24 J44.1 - Chronic obstructive pulmonary disease with (acute) exacerbation Medications: New prednisone see taper instructions; 40 mg Daily x3 days, 30 mg daily x3 days, 20 mg daily x3 days, 10 mg daily x3 days 10 mg PO DIRECTED 30 tabs 0RF amoxicillin-pot clavulanate 875-125 mg 1 tab PO Q12H 20 tabs 0RF roflumilast (Daliresp) 250 mcg PO DAILY 4 weeks 28 tabs 0RF Coding Level of Care Code Est Pt Level 4 (88895) Complex EM visit Add On G2211 Diagnoses Chronic obstructive pulmonary disease with acute exacerbation J44.1 COPD type: COPD with acute exacerbation Pulmonary nodule R91.1 History of acute respiratory failure Z87.09 CPT Codes Nebulizer Treatment - Nebulizer Treatment, initial or subsequent: [id number] RX initial, or Nebulizer Subsequent Treatment ([id number])
[2024-08-05 10:06] VITALS: BP 100/64; PULSE 112; O2SAT 72; BMI 25.9
[2024-08-05 10:10] VITALS: PULSE 104; O2SAT 91
== END 2024-08-05 11:05 | disposition home or self-care (01) ==
PROVIDERS: PCP Family Medicine; Visit Provider Nurse Practitioner Family
DX: J44.1 Chronic obstructive pulmonary disease with (acute) exacerbation (principal); R91.1 Solitary pulmonary nodule; Z87.09 Personal history of other diseases of the respiratory system
CPT/HCPCS: 99214; G2211

== ENCOUNTER → 2024-08-05 09:52 | Outpatient (BNVA) | payer MEDICARE, OTHER, SELFPAY | PROVIDERS: PCP Family Medicine; Visit Provider Nurse Practitioner Family | DX: J44.1 Chronic obstructive pulmonary disease with (acute) exacerbation (principal); J96.01 Acute respiratory failure with hypoxia; R91.1 Solitary pulmonary nodule; Z87.09 Personal history of other diseases of the respiratory system; Z99.81 Dependence on supplemental oxygen | CPT/HCPCS: 94640; 99212 ==

== ENCOUNTER 2024-09-18 09:35 | Outpatient (AMB) | payer MEDICARE, OTHER, SELFPAY ==
[2024-09-18 09:43] VITALS: BP 124/62; PULSE 85; O2SAT 91; BMI 26.4
--- NOTE | 2024-09-18 09:43 | A.OFFVIS_ITS ---
Vital Signs 09/18/24 09:43 Height 5 ft 4 in Weight 154 lb BMI 26.4 BP 124/62 Blood Pressure Location Rt brachial Position Sitting Pulse 85 Pulse Source Pulse Oximeter Pulse Oximetry (%) 91 L Oxygen Delivery Method Nasal Cannula Oxygen Flow Rate 2 Intake Visit Reasons: COPD Wireless Sales Consultant Required: No Fire Prevention Specialist: Fire Prevention Specialist offered & declined Accompanied by: Spouse Allergies No Known Allergies Allergy (Verified 09/18/24 09:49) Medication List - Last Reconciled 09/18/24 by Nany Jones LPN albuterol sulfate 90 mcg/actuation 2 puffs inhalation Q4H PRN alendronate 70 mg PO MO amlodipine 10 mg PO DAILY docusate sodium 100 mg PO DAILY fluticasone propion-salmeterol 500-50 mcg/dose (Wixela Inhub) 1 inh inhalation BID hydrochlorothiazide 12.5 mg PO DAILY ibuprofen 800 mg PO TID PRN ipratropium-albuterol 0.5 mg-3 mg(2.5 mg base)/3 mL 3 mL inhalation QID PRN morphine ER 15 mg PO BID multivitamin 1 tab PO DAILY naloxone 0.4 mg subcut Q3M PRN oxycodone 10 mg PO QID PRN roflumilast (Daliresp) 250 mcg PO DAILY 4 weeks tiotropium bromide 2.5 mcg/actuation (Spiriva Respimat) 2 puffs inhalation DAILY HPI HPI COPD: Details: Bernie is a pleasant 69 year old female, former smoker with 30 pack year histo ry, quit 18 yrs ago, with underlying severe COPD on supplemental oxygen 3L with exertion, asthma and h/o acute respiratory failure with hypoxemia 11/2023 and 06/2024. At baseline reports moderate control on current regimen of Wixela and Spiriva, using Duoneb QD and albuterol PRN. At the last visit she reported productive cough, yellow sputum dyspnea and wheezing. She was treated with Augmentin as well as prednisone and reports feeling back to baseline. We also added Daliresp which she has been tolerating well and has noticed a decrease in breathlessness since initiating. She continues to be active walking 3-4 miles per day using 3L of supplemental oxygen with exertion and using 2L NOC. She has been checking oxygen saturation frequently, noting >92%. She denies any visits to urgent care or hospitalizations since the last visit. [facility] Medical History COPD (chronic obstructive pulmonary disease) Opioid dependence Chronic low back pain Pulmonary nodule Social History Household Members: Spouse Housing: House Do you presently have visiting nurse or other home services: No Patient Tobacco Use Status: Former Tobacco user Tobacco use type: Cigarette Cigarette Packs Per Day: 1 Years Smoked: 30 service: No Current occupational status: retired Review of Systems Const Denies chills, Denies excessive sweating, Denies fever(s), Denies headache(s) and Denies night sweats Eyes Denies dry eyes, Denies irritation and Denies itchy eyes ENT Reports Normal hearing present, Denies headache(s), Denies nasal congestion, Denies nasal discharge, Denies post nasal drip and Denies sore throat Card Denies chest pain, Denies chest pain at rest, Denies chest pain with activity, Denies claudication, Denies leg edema, Denies orthopnea and Denies paroxysmal nocturnal dyspnea Resp Denies pain on inspiration, Denies pain with cough and Denies stridor Musc Denies myalgias Neuro Reports Normal hearing present and Denies headache(s) Endo Denies excessive sweating Miguel/Lymph Denies lymphadenopathy Aller/Immun Denies itchy eyes and Denies seasonal rhinorrhea Physical Exam Vital Signs: Last Vital Signs Pulse 85 09/18/24 09:43 BP 124/62 09/18/24 09:43 Pulse Ox 91 L 09/18/24 09:43 Oxygen Delivery Method Nasal Cannula 09/18/24 09:43 Oxygen Flow Rate 2 09/18/24 09:43 BMI result Body Mass Index 26.4 Const General: cooperative, no acute distress, well developed and alert Orientation/consciousness: patient oriented x3 Limitations: no limitations HEENT Head: Yes normal to inspection, Yes normocephalic and Yes atraumatic Ears: hearing grossly normal bilaterally and external ears normal Eyes General: appearance normal, both eyes and all related structures Eyelids: Yes eyelids normal Sclerae: sclerae normal EOM: EOMs intact bilaterally Neck Neck: Yes normal visual inspection and Yes no lymphadenopathy Lymphatic: no lymphadenopathy noted Chest Chest palpation & inspection: normal inspection of the chest Resp Effort & Inspection: normal respiratory effort, able to speak in complete sentences, no stridor, not tachypneic, no tripod positioning and no use of accessory muscles Auscultation: diminished lung sounds Cardio Jugular venous distension: no JVD Rate: regular rate Rhythm: regular rhythm Skin Other: warm, dry General skin exam: no rashes or lesions noted Neuro General: patient oriented x3 Cranial nerves: Yes Normal hearing present Cognition (Neuro): normal cognition Gait exam (Neuro): Normal gait present Extrem General: Yes normal to inspection, Yes capillary refill normal, Yes no clubbing, cyanosis or edema and Yes no pedal edema Psych Appearance: grossly normal and well kempt Speech and movement: Normal speech and movement present and Clear speech present Affect: normal affect Attitude: cooperative Thought process: Normal thought process present Thought content: Normal thought content present Insight: Good insight present (Psych) Judgement: Good judgement present (Psych) Assessment & Plan Assessment & Plan (1) COPD (chronic obstructive pulmonary disease): Code(s): J44.9 - Chronic obstructive pulmonary disease, unspecified Category: Medical Qualifiers: COPD type: COPD with acute exacerbation Qualified Code(s): J44.1 - Chronic obstructive pulmonary disease with (acute) exacerbation (2) Pulmonary nodule: Code(s): R91.1 - Solitary pulmonary nodule Category: Medical (3) History of acute respiratory failure: Code(s): Z87.09 - Personal history of other diseases of the respiratory system Category: Medical Plan Bernie continues to report suboptimal effect with current regimen and is interested in Breztri. Will send in and she will discontinue Spiriva and Wixela. She has been tolerated Daliresp and reports good effect, will increase to 500mcg. Encourage patient to continue to use 3 L of supplemental oxygen with exertion and 1 L at rest. Goal is to keep oxygen saturation greater than 90- 92%. Will send for overnight oximetry to ensure 2L NOC is sufficient. She continues to defer sleep study. All questions were answered and patient is in agreement of plan. Will follow-up in 6-8 weeks or sooner if needed. 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
--- OUTSIDE RECORDS SUMMARY | 2024-09-18 10:40 | XMS_ITS | Continuity of Care Document ---
Author Organization [facility], , [facility], OFFICE Address [address] [place] [address] Care Team Providers Care National Accounts Sales Name Role Phone LONNY BENTLEY Primary Care Provider NEIL BIANCHI Tariff Expert NEIL JUDGE Tariff Expert [facility] Store Receiving Specialist Assessment No assessment recorded. Plan of Treatment Reminders Order Date Submit Date Provider Last Modified By Organization Details Last Modified Time Details Appointments Medical Managemen t 15 2024 11:00A M Lonny Bentley MD Not available Not available Not available Wellness Visit 30 2024 10:45A M Lonny Bentley MD Not available Not available Not available Lab None recorded. Referral None recorded. Procedures None recorded. Surgeries None recorded. Imaging None recorded. Medication Orders None recorded. Patient TargetsNo targets recorded. Patient Instructions Encounter Date Encounter Id Patient Instructions Last Modified By Organization Details Last Modified Time 07/14/2024 [id number] I am aware of [facility] inpatient facility discharge medications, the medication list above has been reconciled with those medications and reflects my understanding of an up to date medication list for this patient. [email or web address] Not available 07/14/2024 14:30:48 Reason for Referral None Reported. Results Created Date Observation Date Name Description Value Unit Range Abnormal Flag Note LastModifiedBy Organization Detail LastModifiedTime 06/29/2006/29/2024 XR, chest No observ ation record ed. [facility] [address] [place], [address], 06/30/2024 12:46:10 09/03/19 25 06/29/2024 XR, chest No observ ation record ed. [facility] [address] [facility], [place], [address], 09/03/2024 10:32:21 09/03/19 25 06/29/2024 XR, chest No observ ation record ed. [facility] [address] [facility] [place], [address], 09/04/2024 08:33:47 09/03/19 25 09/03/2024 XR, chest CLINIC AL HISTOR Y: COPD exacer bation . Follow -up. TECHNI QUE: Fronta l view and latera l view of the chest obtain ed. COMPAR HARLEY: 2022, 2021 FINDIN GS: The heart is normal in size and config uratio n.Ther e is no hilar or medias tinal enlarg ement. There is no focal lung consol idatio n or infilt rate. There are promin ent inters titial markin gs. There is no defini te superi mposed acute pathol ogy. The bony thorax is intact . IMPRES MAIK: No acute diseas e. COPD. An addend um to this report will be genera jinny if the patien t's prior radiog raphs become availa ble. Readin g Physic avery: Brenda Alexander ms [facility] (Imaging) [address], [place], [address], 09/03/2024 15:33:10 09/10/19 25 09/03/2024 XR, chest Addend um: Recent imagin g from 2023 is availa ble for compar harley. Bronch ial wall thicke jairo appear s decrea sed compar ed to the 2823 radiog raph. This sugges ts interv al improv ement in the nonspe cific findin g. There is no change in the impres maik. CLINIC AL HISTOR Y: COPD exacer bation . Follow -up. TECHNI QUE: Fronta l view and latera l view of the chest obtain ed. COMPAR HARLEY: 2022, 2021 FINDIN GS: The heart is normal in size and config uratio n. There is no hilar or medias tinal enlarg ement. There is no focal lung consol idatio n or infilt rate. There are promin ent inters titial markin gs. There is no defini te superi mposed acute pathol ogy. The bony thorax is intact . IMPRES MAIK: No acute diseas e. COPD. An addend um to this report will be genera jinny if the patien t's prior radiog raphs become availa ble. Readin g Physic avery: Brenda Alexander ms [facility] (Im[facility]) [address], [place], [address], 09/10/2024 07:26:54 Result Notes None recorded. Problems Name Problem SNOMED Code Status Onset Date Resolution Date Notes Provider Name and Address Organization Details Recorded Time Recurren t major depressi ve episodes 543522199 Active 2011 Not Available [facility] 0 14:16:47 Major depressi on, melancho lic type 490118768 Completed 201311/25/2020 Removal Reason: recurren t coded and on active problem list SHERRY Head, [facility] 1 06:21:11 Chronic obstruct ezequiel pulmonar y disease 71852301 Active Not Available [facility] 0 14:16:47 Benign essentia l hyperten maik 7035244 Active 2018 Not Available [facility] 0 14:16:47 Mixed hyperlip idemia 383446821 Active 2018 Not Available [facility] 0 14:16:47 Opioid dependen ce 17231904 Active 2020 coded 01/28/20 Virtual Visit SHERRY Head, [facility] 1 06:21:51 Essentia l hyperten maik 66281853 Active 2021 Lonny Bentley MD [address] [place] [address], [phone] , [facility] 2 12:24:07 History of acute respirat ory failure 70538651974 629267 Active 2023 Shruthi Foy NP [address] [place], [phone] , [facility] 4 09:55:01 Nodule of lung 025007961 Active 2023 Shruthi Foy NP [address] [place], [address] , [facility] 4 09:55:24 Acquired trigger finger 9469103 Completed 200404/02/2011 Not Available [facility] 3 03:06:02 Contusio n 267184443 Completed 200102/06/2011 Not Available [facility] 3 03:06:02 Open wound of finger 934067101 Completed 200002/06/2011 Not Available [facility] 3 03:06:02 Contact dermatit is 00663619 Completed 200204/02/2011 Not Available [facility] 3 03:06:02 Gastroes ophageal reflux disease 253591422 Active Not Available [facility] 0 14:16:48 Cellulit is and abscess of hand excludin g digits Completed 200002/06/2011 Not Available [facility] 3 03:06:02 Diarrhea 24230799 Completed 200204/02/2011 Not Available [facility] 3 03:06:02 Disorder of trunk 603881492 Completed 200102/06/2011 Not Available [facility] 3 03:06:02 Sciatica 33164243 Completed 200104/02/2011 Not Available [facility] 3 03:06:02 Contact dermatit is due to plants, except food Completed 200002/06/2011 Not Available [facility] 3 03:06:02 Emphysem atous bronchit is 505241861 Active Not Available [facility] 0 14:16:47 Chronic asthmati c bronchit is 009941534 Active 2003 Not Available [facility] 0 14:16:47 Chronic pain 95297889 Active Not Available [facility] 0 14:16:47 Chronic pain 42324754 Completed 04/02/2011 Not Available [facility] 3 03:06:02 Low back pain 049519525 Completed 200102/06/2011 Not Available [facility] 3 03:06:02 Displace ment of lumbar interver tebral disc without myelopat hy 41845654 Active 2001 Not Available [facility] 0 14:16:48 Asthma 758674562 Active 1999 Not Available [facility] 0 14:16:47 Pain in limb 98146847 Completed 200102/06/2011 Not Available [facility] 3 03:06:02 Cellulit is and abscess of trunk 716356880 Completed 200204/02/2011 Not Available [facility] 3 03:06:02 Problem Notes None recorded. Procedures Surgical History Date Name Laterality Status Provider Name and Address Organization Details Recorded Time 07/14/20 24 Post hospital/SNF follow-up/Transiti onal Care completed Angy Yi [facility] 07/14/2024 14:30:48 06/05/20 24 Medicare Wellness Visit completed Skye Steve MA [facility] 06/05/2024 11:34:39 06/05/20 24 Cardiovascular disease risk reduction counseling completed Lonny Bentley MD [address] [place] [address], [phone], [facility] 06/06/2024 19:42:41 11/18/19 24 Oxygen Administration completed Yi Mckenzie RN [facility] 11/18/2023 11:29:28 11/11/19 24 Oxygen Administration completed Mariza Martin LPN [facility] 11/11/2023 09:16:23 05/31/20 23 Medicare Wellness Visit completed Neil Brewster CMA [facility] 05/31/2023 12:36:43 05/31/20 23 Cardiovascular disease risk reduction counseling completed Lonny Bentley MD [address] [place] [address], [phone], [facility] 06/02/2023 19:50:47 03/18/20 23 Asthma Control Test (12 + years old) completed Carlos Black MA [facility] 03/18/2023 16:15:16 05/31/20 22 Post hospital/SNF follow-up/Transiti onal Care completed Neil Brewster CMA [facility] 05/31/2022 08:46:05 04/25/20 22 Medicare Wellness Visit completed Rima yee MA [facility] 04/25/2022 08:34:47 04/25/20 22 Alcohol use screening completed Rima yee MA [facility] 04/25/2022 08:34:47 04/25/20 22 Cardiovascular disease risk reduction counseling completed Rima yee [facility] 04/25/2022 08:34:47 08/23/20 21 Asthma Control Test (12 + years old) completed Malgorzata Campo MA [facility] 08/22/2021 15:11:05 05/12/20 20 prevention-cardiov ascular risk reduction counseling completed Anna Montelongo MA [facility] 05/11/2020 16:37:01 05/12/20 20 prevention-annual alcohol misuse screening completed Anna Montelongo MA [facility] 05/11/2020 16:37:01 05/12/20 20 Medicare Annual Wellness Visit completed Anna Montelongo MA [facility] 05/11/2020 16:37:01 05/11/20 19 Medicare Wellness Visit completed Matt Miles [facility] 05/11/2019 15:29:26 05/11/20 19 Asthma Control Test (12 + years old) completed Matt Miles [facility] 05/11/2019 15:37:53 08/16/20 16 Cholecystectomy completed Kleber Piper MD [address] [place] [address], [phone], [facility] 08/17/2016 16:42:42 09/26/19 16 Medicare Wellness Visit completed Kleber Piper MD [address] [place] [address], [phone], [facility] 09/26/2015 09:39:10 03/17/20 13 Asthma Control Test (12 + years old) completed Kleber Piper MD [address] [place] [address], [phone], [facility] 03/17/2013 13:44:57 Tonsillectomy completed Not Available [facility] 07/19/2011 06:05:52 Imaging Results None recorded. Procedure Notes None recorded. Medical Equipment None Reported. Allergies Allergen ID Allergen Name Allergen Category Reaction Reaction Severity Criticality Documentation Date Start Date Code Code System Note Provider Name and Address Organization Details Recorded Time 195675 budesonid e medicatio n wheezing severe high 03/18/2023 RxNorm Carlos Black MA [facility] 16:07:55 Medications Name Sig Start Date Stop Date Status Note LastModified by Organization Details LastModified Time losartan 50 mg tablet Take 1 tablet every day by oral route. 05/04 completed no longer taking 05/04/21 BSL Not Available Not Available Not Available bupropion HCl SR 150 mg tablet,12 hr sustained -release Take 1 tablet twice a day by oral route. 2013 active Not Available Not Available Not Avai lable prednison e 10 mg tablet take 4 po qd x 5 d, 3 po qd x 5 d, 2 po qd x 5 d then 1 po qd x 5 d active Not Available Not Available No t Available doxycycli ne hyclate 100 mg capsule Take 1 capsule twice a day by oral route for 7 days. 10/01 completed Not Available Not Available Not Available ipratropi um 0.5 mg-albute rol 3 mg (2.5 mg base)/3 mL nebulizat ion soln Inhale 3 mL 4 times a day by nebuliza tion route as needed. 2023 active Not Available Not Available Not Avai lable polyethyl debra glycol 3350 17 gram oral powder packet Take 1 packet every day by oral route as directed . 2023 active Per pt, takes daily/JM L Not Available Not Available Not Available azithromy gena 250 mg tablet TAKE 2 TABLETS (500 MG) BY ORAL ROUTE ONCE DAILY FOR 1 DAY THEN 1 TABLET (250 MG) BY ORAL ROUTE ONCE DAILY FOR 4 DAYS 09/11 completed Not Available Not Available Not Available ibuprofen 800 mg tablet Take 1 tablet 3 times a day by oral route as needed. 2023 active Not Available Not Available Not Avai lable Morphine Sulfate IR 15 mg tablet Take 1 tablet 4 times a day by oral route for 28 days. 07/02 completed Not Available Not Available Not Available Norpramin 25 mg tablet Take 1 tablet every day by oral route at bedtime. 10/07 completed Not Available Not Available Not Available promethaz ine 25 mg rectal supposito ry UNRAP FOIL AND INSERT 1 SUPPOSIT OR 3 TIMES A DAY BY RECTAL ROUTE NEEDED. 07/04 completed Not Available Not Available Not Available phenazopy ridine 200 mg tablet Take 1 tablet 3 times a day by oral route as needed. 2011 active Not Available Not Available Not Avai lable prednison e 20 mg tablet Take 2 tablets every day by oral route for 5 days. 10/01 completed Not Available Not Available Not Available alendrona te 70 mg tablet Take 1 tablet every week by oral route. 2023 active Not Available Not Available Not Avai lable clonazepa m 0.5 mg tablet Take 1 tablet every day by oral route as needed. 07/04 completed Not Available Not Available Not Available amlodipin e 5 mg tablet Take 1 tablet every day by oral route. 08/23 completed only taking 10mg 08/23/21 BSL Not Available Not Available Not Available oxycodone 15 mg tablet Take 1 tablet 5 times a day by oral route for 28 days. 01/15 completed Not Available Not Available Not Available Macrobid 100 mg capsule Take 1 capsule twice a day by oral route for 7 days. 11/11 completed Not Available Not Available Not Available morphine ER 60 mg tablet,ex tended release Take 1 tablet twice a day by oral route as needed for 28 days. 12/24 completed Not Available Not Available Not Available amlodipin e 10 mg tablet Take 1 tablet every day by oral route. 2023 active Not Available Not Available Not Avai lable triamcino lone acetonide 0.1 % topical ointment Apply a thin layer to the affected area(s) by topical route 2 times per day 04/25 completed Not Available Not Available Not Available lidocaine 5 % topical patch APPLY 1 PATCH BY TRANSDER MAL ROUTE ONCE DAILY (MAY WEAR UP TO 12HOURS. ) 05/31 completed PRN Not Available Not Available Not Available losartan 25 mg tablet Take 1 tablet every day by oral route. 05/04 completed no longer taking 05/04/21 BSL Not Available Not Available Not Available codeine 10 mg-guaife nesin 100 mg/5 mL Syrup Take 10 mL every 4 hours by oral route. 07/04 completed Not Available Not Available Not Available docusate sodium 100 mg capsule Take 1 capsule every day by oral route. 2021 active Not Available Not Available Not Avai lable omeprazol e 20 mg capsule,d elayed release Take 1 capsule every day by oral route. 12/28 completed Not Available Not Available Not Available morphine ER 15 mg tablet,ex tended release TAKE 1 TABLET BY MOUTH TWICE DAILY active Not Available Not Available No t Available codeine 10 mg-guaife nesin 100 mg/5 mL oral liquid Take 10 mL every 4 hours by oral route. 2021 active Not Available Not Available Not Avai lable lisinopri l 5 mg tablet Take 1 tablet every day by oral route. 02/20 completed Not Available Not Available Not Available MS Contin 30 mg tablet,ex tended release Take 1 tablet twice a day by oral route for 28 days. 10/29 completed Not Available Not Available Not Available Aspir-81 mg tablet,de layed release 04/21 completed 1 a day Not Available Not Available Not Available morphine 15 mg immediate release tablet 3.5 tabs a day in 4 divided doses by oral route for 28 days 10/16 completed Not Available Not Available Not Available Phenergan 25 mg/mL injection solution Take 25 mg as needed by injectio n route as needed. 07/04 completed Disconti nued Not Available Not Available Not Available amoxicill in 875 mg-potass ium clavulana te 125 mg tablet TAKE 1 TABLET BY MOUTH EVERY 12 HOURS active Not Available Not Available No t Available Bactrim DS 800 mg-160 mg tablet Take 1 tablet twice a day by oral route for 5 days. 11/06 completed Not Available Not Available Not Available Flovent HFA 220 mcg/actua tion aerosol inhaler Inhale 2 puffs twice a day by inhalati on route. 07/31 completed states she disconti nued due to reaction 07/31/22 Not Available Not Available Not Available morphine active 60 mg 3x a day Not Available Not Available Not Available omeprazol e active 20mg 1 x a day Not Available Not Available Not Available multivita min active 1 a day Not Available Not Available Not Available albuterol (bulk) active inhaler 17 grams 2-3 x a day Not Available Not Available Not Available bupropion HCl (bulk) active 155 mg 1 a day Not Available Not Available Not Available ProAir HFA 90 mcg/actua tion aerosol inhaler Inhale 2 puffs every 4 hours by inhalati on route. 2023 active prn Not Available Not Available Not Avai lable budesonid e 180 mcg/actua tion breath activated powder inhaler Inhale 1 puff twice a day by inhalati on route. 03/18 completed Not Available Not Available Not Available hydrochlo rothiazid e 12.5 mg tablet Take 1 tablet every day by oral route. 2023 active Not Available Not Available Not Avai lable oxycodone 10 mg tablet TAKE 1 TABLET BY MOUTH FOUR TIMES DAILY active Not Available Not Available No t Available Calcium 500 mg + D (D3) 3.125 mcg (125 unit) tablet Take 1 tablet twice a day by oral route for 90 days. 2010 active Not Available Not Available Not Avai lable Combivent Respimat 20 mcg-100 mcg/actua tion solution for inhalatio n Inhale 1 puff 4 times a day by inhalati on route. active Not Available Not Available No t Available Fluzone (PF) 45 mcg (15 mcg x 3)/0.5 mL intramusc ular syringe TO BE ADMINIST ERED BY [employer] FOR IMMUNIZA TION 01/09 completed Not Available Not Available Not Available Spiriva Respimat 2.5 mcg/actua tion solution for inhalatio n Inhale 2 puffs every day by inhalati on route as directed . 2023 active Not Available Not Available Not Avai lable Stiolto Respimat 2.5 mcg-2.5 mcg/actua tion solution for inhalatio n Inhale 2 puffs every day by inhalati on route. 09/22 completed Not Available Not Available Not Available Narcan 4 mg/actuat ion nasal spray Take by nasal route for suspecte d opioid overdose . [place]on 1 mL in one nostril. Repeat after 3 minutes if no or minimal response 2023 active Not Available Not Available Not Avai lable Flucelvax Quad (PF) 60 mcg (15 mcg x 4)/0.5 mL IM syringe TO BE ADMINIST ERED BY [employer] FOR IMMUNIZA TION 07/04 completed Not Available Not Available Not Available oxygen Use 3 liters via nasal cannula on exertion , or as directed 2023 active Per d/c summary [facility] 07/04/24, uses [employer] Not Available Not Available Not Available Wixela Inhub 500 mcg-50 mcg/dose powder for inhalatio n Inhale 1 puff twice a day by inhalati on route. 2023 active Not Available Not Available Not Avai lable Trelegy Ellipta 200 mcg-62.5 mcg-25 mcg powder for inhalatio n Inhale 1 puff every day by inhalati on route. 10/01 completed not using 10/01/22M S Not Available Not Available Not Available BinaxNOW COVID-19 Ag Self Test kit USE DIRECTED ON PACKAGE 06/28 completed Not Available Not Available Not Available Vitals Date Recorded Body height Provider Name an d Address Organization Details Last Updated DateTime 07/14/2024 162.56 cm [facility] 07/14/2024 14:31:07 Date Recorded Body mass index (BMI) Body weight Provider Name and Address Organization Details Last Updated DateTime 07/14/2024 25.6 kg/m2 23017.36 g Angy Yi [facility] 07/14/2024 14:32:46 Date Recorded Heart rate Provider Name an d Address Organization Details Last Updated DateTime 07/14/2024 94 /min Angy Yi [facility] 07/14/2024 14:38:21 Date Recorded Oxygen saturation Oxygen saturation in Arterial blood by Pulse oximetry Provider Name and Address Organization Details Last Updated DateTime 07/14/2024 94 % 94 % Angy Yi [facility] 07/14/2024 14:38:36 Date Recorded Systolic blood pressure Diastolic blood pressure Provider Name and Address Organization Details Last Updated DateTime 07/14/2024 100 mm[Hg] 62 mm[Hg] Angy Yi [facility] 07/14/2024 14:37:12 Social History Question Answer Notes LastModified by Organizat ion Details LastModified Time Tobacco Smoking Status [facility] 12:30:50 Do You Have An Advance Directive? Yes spouse [email or web address] Information not available 10/01/2022 What Is Your Level Of Alcohol Consumption? Occasional Veryvery Rare [email or web address] Information not available 06/05/2024 Do You Wear A Helmet When Biking? No Doesnt Bike Information not available 08/03/2022 Are You Blind Or Do You Have Difficulty Seeing? No Information not available 04/05/2014 What Is Your Level Of Caffeine Consumption? Moderate 1 Cup A Day Of Coffee, No Tea Or Soda Information not available 08/03/2022 How Much Tobacco Do You Chew? None Only For A Short Time As Kid Information not available 10/04/2011 Are You Currently Employed? No Information not available 08/03/2022 Are You Deaf Or Do You Have Serious Difficulty Hearing? No [email or web address] Information not available 10/01/2022 What Type Of Diet Are You Following? REGULAR Information not available 08/03/2022 Which Illicit Or Recreational Drugs Have You Used? None 7 Information not available 07/19/2011 Do You Or Have You Ever Used E-cigarettes Or Vape? Never Used Electronic Cigarettes Information not available 08/03/2022 Education 10 [email or web address] Information not available 10/01/2022 What Is Your Occupation? Retired 7 Information not available 07/19/2011 How Many Days Of Moderate To Strenuous Exercise, Like A Brisk Walk, Did You Do In The Last 7 Days? 7 [email or web address] Information not available 10/01/2022 Have There Been Any Changes To Your Family Or Social Situation? No Waiting For Grandson To Be Born [email or web address] Information not available 06/05/2024 When Did You Quit Smoking? 16+yearssince lastcifreddy [email or web address] Information not available 08/19/2023 Are There Any Guns Present In Your Home? Yes LOCKED Information not available 10/04/2011 Do You Use Insect Repellent Routinely? No [email or web address] Information not available 06/05/2024 Live Alone Or With Others? With Others [email or web address] Information not available 10/01/2022 CSRP - Narcotics Yes 7 Information not available 07/19/2011 CSRP Contract Signed And Discussed Yes Dr. Bentley Contract 10/01/2022 Narcotics 7 Information not available 07/19/2011 Does The Patient Have Difficulty Speaking Malagasy? No Information not available 03/24/2014 Does The Patient Have Difficulty Reading Malagasy? No Information not available 03/24/2014 Patient Has Health Care Proxy Signed And In Chart Yes Given 05/11/19 Aniyah Pt To Send Copy 05/31/23 Sabiha [email or web address] Information not available 05/12/2019 Marital Status [email or web address] Informatio n not available 10/01/2022 Mosquito Repellent Used Routinely Yes [email or web address] Information not available 10/01/2022 What Was The Date Of Your Most Recent Tobacco Screening? 07/14/2024 [email or web address] Information not available 07/14/2024 How Many Children Do You Have? 3 7 Information not available 07/19/2011 What Is Your Current Pack Years? 10-19packyear s [email or web address] Information not available 04/09/2024 What Is Your Relationship Status? blepage Information not available 04/05/2021 Do You Use Your Seat Belt Or Car Seat Routinely? Yes [email or web address] Information not available 04/25/2022 Seat Belts Used Routinely Yes [email or web address] Information not available 10/01/2022 Are You Sexually Active? Yes 7 Information not available 07/19/2011 Smoke Alarm In Home Yes [email or web address] Information not available 10/01/2022 Do You Have Smoke And Carbon Monoxide Detectors In Your Home? Yes Information not available 08/03/2022 At What Age Did You Start Smoking Tobacco? 5 Information not available 08/03/2022 Are You Passively Exposed To Smoke? No Information not available 08/03/2022 Do You Or Have You Ever Used Smokeless Tobacco? Never Used Smokeless Tobacco Information not available 08/03/2022 How Much Tobacco Do You Smoke? No [email or web address] Information not available 04/09/2024 What Types Of Sporting Activities Do You Participate In? None 7 Information not available 07/19/2011 General Stress Level Low [email or web address] Information not available 10/01/2022 Do You Use Any Illicit Or Recreational Drugs? No Information not available 08/03/2022 Do You Use Sunscreen Routinely? No Information not available 06/05/2024 How Many Years Have You Smoked Tobacco? 15 alot Information not available 04/09/2024 Do You Or Have You Ever Used Any Other Forms Of Tobacco Or Nicotine? No [email or web address] Information not available 10/01/2022 Sex: Female Functional Status Question Answer Note LastModified by Organizat ion Details LastModified Time Do you have difficulty walking or climbing stairs? No [email or web address] Information not available 10/01/2022 Do you have difficulty doing errands alone? No [email or web address] Information not available 10/01/2022 Do you have difficulty dressing or bathing? No [email or web address] Information not available 10/01/2022 What is your exercise level? Moderate 5 miles walking daily [email or web address] Information not available 06/05/2024 Mental Status Question Answer Note LastModified by Organizat ion Details LastModified Time Do you have difficulty concentrating, remembering or making decisions? No some memorary issue -04/05/14 [email or web address] Information not available 10/01/2022 Family History Nothing Reported Notes:father - cancer prosta te, mother- dm,copd Medical History Condition Response Kidney Stones Y COPD Y Alcoholism GERD Y Asthma Chronic Back Pain Y Gynecological History Statement/Question Response LMP Obstetrics History GPAL:G 0 P 0 0 0 0 Immunizations Vaccine Type Date Status Note Provider Nam e and Address Organization Details Recorded Time influenza, unspecified formulation 3 completed Not Available [facility] 07/18/2011 05:21:07 influenza, unspecified formulation 4 completed Not Available [facility] 07/18/2011 05:21:07 Influenza, split virus, trivalent, preservative 1 completed Not Available [facility] 09/19/2019 02:38:55 pneumococcal polysaccharide PPV23 1 completed Not Available [facility] 09/19/2019 02:14:32 Td(adult) unspecified formulation 5 completed Not Available [facility] 07/18/2011 05:21:07 Tdap 3 completed Not Available [facility] 09/19/2019 02:29:25 Influenza, split virus, trivalent, PF 4 completed Not Available [facility] 09/19/2019 02:26:36 Influenza, high-dose, trivalent, PF 3 completed Not Available [facility] 10/01/2022 10:56:31 Influenza, split virus, quadrivalent, PF 3 completed Not Available [facility] 10/01/2022 10:56:31 Influenza, split virus, quadrivalent, preservative 8 completed Not Available [facility] 10/01/2022 10:56:30 Influenza, split virus, quadrivalent, preservative 9 completed Not Available [facility] 10/01/2022 10:56:30 pneumococcal polysaccharide PPV23 1 [facility] 15:32:17 Td (adult), 2 Lf tetanus toxoid, preservative free, adsorbed 3 completed Lonny Bentley MD [address] [place] [address], [id number], [facility] 03/23/2023 14:44:29 COVID-19, mRNA, LNP-S, PF, 100 mcg/0.5mL dose or 50 mcg/0.25mL dose 1 [facility]23 11:12:22 COVID-19, mRNA, LNP-S, PF, 100 mcg/0.5mL dose or 50 mcg/0.25mL dose 1 [facility]23 11:12:22 COVID-19, mRNA, LNP-S, PF, 100 mcg/0.5mL dose or 50 mcg/0.25mL dose 1 completed TIMA Anglin [facility] 12/16/2023 11:12:22 COVID-19, mRNA, LNP-S, PF, 100 mcg/0.5mL dose or 50 mcg/0.25mL dose 2 [facility] 11:12:22 COVID-19, mRNA, LNP-S, bivalent, PF, 50 mcg/0.5 mL or 25mcg/0.25 mL dose 2 completed TIMA Anglin [facility] 12/16/2023 11:12:22 zoster recombinant 2 [facility] 11:12:21 Influenza, high-dose, quadrivalent, PF 2 [facility]23 11:12:22 zoster recombinant 2 [facility]23 11:12:22 influenza, unspecified formulation 3 completed Mariza Martin, [employer] [facility] 08/19/2023 09:23:44 Influenza, MDCK, quadrivalent, PF 7 [facility]23 11:12:21 Influenza, high-dose, quadrivalent, PF 1 [facility]23 11:12:22 Influenza, high-dose, quadrivalent, PF 3 [facility] 11:12:22 RSV, bivalent, protein subunit RSVpreF, diluent reconstituted, 0.5 mL, PF 3 [facility]2023 11:12:22 COVID-19, mRNA, LNP-S, PF, melquiades-sucrose, 30 mcg/0.3 mL 3 [facility]16[facility]2023 11:12:22 Influenza, split virus, trivalent, preservative 9 [facility]16[facility]23 11:12:22 Influenza, split virus, trivalent, PF 0 [facility]16[facility]23 11:12:22 Influenza, split virus, trivalent, PF 6 [facility]16[facility]23 11:12:22 Influenza, split virus, trivalent, PF 5 [facility]16[facility]2023 11:12:22 Influenza, split virus, quadrivalent, PF 8 [facility]/16[facility]2023 11:12:22 Influenza, high-dose, trivalent, PF 4 [facility] 06/05/2024 11:38:31 influenza, unspecified formulation 0 completed Not Available [facility] 07/18/2011 05:20:34 Past Encounters Encounter ID Performer Location Encounter Start Date Encounter Closed Date Diagnosis/Indication Diagnosis SNOMED-CT Code Diagnosis ICD10 Code Diagnosis Note [id number] DO JONNY SILVESTRE, [facility], OFF[address] [place] [address] 07/14/2024 13:48:47 07/16/2024 09:03:17 Chronic obstructive pulmonary disease 41333021 J44.9 Chronic Obstructiv e Pulmonary Disease (COPD)Rece nt exacerbati on with hospitaliz ation. Currently on home oxygen, Prednisone , Spiriva, and ProAir. Reports shortness of breath with exertion but recovers quickly. No current wheezing. Noted crackles and expiratory wheezing on exam.-Cont inue current inhalers and Prednisone as prescribed .-Encourag e use of home oxygen as needed, especially during sleep and exertion.- Order incentive spirometry for home use to improve lung function.- Check oxygen saturation levels regularly to ensure they remain around 93-94%. History of Pneumonia and Parainflue nzaRecover ed from recent hospitaliz ation. No current signs of infection. -Monitor for any signs of infection such as changes in sputum color or taste. General Health Maintenanc e-Continue active lifestyle including daily walks and dancing as tolerated. -Continue to monitor blood pressure regularly. -Encourage low salt diet to prevent fluid retention. Health Concerns Section Related Observation LastModified by Organization Detai ls LastModified Time None Recorded Concern Status LastModified by Organization Details LastModified Time None Recorded Payers Encounter Date Sequence Insurance Name Policy Number Policy Boyd Covered Member ID Boyd Member ID Guarantor Name 07/14/2024 2 ( - INDEMNITY) Bernie Oh [id number] Bernie Oh 07/14/2024 1 MEDICARE B-DE: [employer] Bernie Oh [id number] Bernie Oh Notes Date Note Type Note Provider Name and Address Organization Details Recorded Time 07/14/2024 text/html 07/14/24- Pt her e today for a [facility] visitinpatient f/u COPD exacerbation, parainfluenza, pneumoniaD/C on 07/04/24, admitted for 6 days History of Present IllnessThe patient, with a history of COPD, pneumonia, parainfluenza, and bronchitis, presents for a follow-up after a recent hospitalization due to a COPD exacerbation. The patient reports that she has been feeling better since her discharge from the hospital. She has been on oxygen therapy since her hospitalization, which she uses mainly at night. She reports some shortness of breath, especially when climbing stairs, but notes that her breathing improves with activity. 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 She is currently weaning off prednisone and uses inhalers for her COPD management. She also uses a nebulizer twice daily. She reports no issues with her bowels and has noticed a slight decrease in leg swelling since she stopped drinking diet Pepsi. KLEBER ALCANTAR, DO [address] [place] [address], [place], [id number], [facility] 07/16/2024 08:15:23 OBGyn Episode No OBEpisode recorded.
--- OUTSIDE RECORDS SUMMARY | 2024-09-18 10:40 | XMS_ITS | Data Portability ---
Author Organization [facility], [facility] Address [address] [place] [address] Care Team Providers Care Fatback Trimmer Name Role Phone VICKY BENTLEY Primary Care Provider [phone] NEIL BIANCHI Agriculture Inspector NEIL JUDGE Agriculture Inspector [facility] Nurse Quality Assessment Encounter Date Assessment Date Assessment LastModified by Organization Details LastModified Time 12/16/2023 12/16/2023 Respiratory distress. The patient is advised to maintain her current regimen of inhalers and analgesics. She is instructed to discontinue her nocturnal oxygen if her oxygen saturation does not consistently fall below 89. If her respiratory symptoms deteriorate, she is advised to seek immediate medical attention. Health maintenance Advised to take a plant-based diet and avoid all processed food items. The patient is scheduled for a Medicare physical in 06/2024. [email or web address] Not available 12/17/2023 11:13:29 04/09/2024 04/09/2024 1. Chronic obstructive pulmonary disease. Weight loss was recommended to enhance lung expansion. Dietary modifications, including reducing simple carbohydrates such as bread, rice, potatoes, pasta, chips, and crackers, were recommended. She was also advised to maintain an active lifestyle. 2. Hypertension. Her blood pressure is well-managed. A prescription for a diuretic was provided. 3. Health maintenance. Her tetanus and shingles vaccines are up-to-date. Her kidney function and potassium levels are within normal limits. She was advised to receive the COVID-19 vaccine in the next 2 weeks when it becomes available. She was also advised to receive the influenza vaccine this fall. The PC20 pneumonia vaccine was recommended. 4. Hyperlipidemia. Her LDL cholesterol is 134 and HDL cholesterol is satisfactory. No medication was prescribed at this time. 5. Prediabetes. Her blood sugar level is 105. She was advised to maintain a healthy diet, reduce starches, and engage in daily walking. Follow-up A follow-up visit is scheduled in 4 months. elton Not available 04/09/2024 12:21:20 06/05/2024 06/05/2024 We completed your Medicare Wellness exam today. This was an opportunity to assess your overall well being including your ability to care for yourself, your mobility, memory, mental health, as well as your safety. With advancing age, it is important to assign someone in your life as your Health Care Proxy (HCP). This person should know what is important to you and what your wishes are for medical procedures if you cannot communicate your wishes yourself (severe illness, unconsciousness) . We discussed having a completed Health Care Proxy form today. In addition, today we started a conversation about your End of Life wishes. These conversations will continue over the years. Please consider reading the book, Being Mortal by Vasiliy Yost to help frame future conversations. We discussed the purpose of a MOLST form (Medical Orders for Life Sustaining Treatment) and completed this form if appropriate per your wishes. Vision and Hearing are senses that are critically important as we age. When impaired, they can contribute to memory loss, falls, and make it harder to drive, talk to family and friends, and engage in the world. Please get your vision checked yearly and your hearing checked when you start to notice hearing loss. We discussed approaches to lowering your risk of heart disease and stroke . Your blood pressure is at goal. Your cholesterol is at goal. We discussed cancer screening you may need as well as vaccines to prevent infections. Colon Cancer : Your risk of colon cancer is higher than average due to family history. Due for colorectal screenin. If you are not planning to have a colonoscopy please screen with stool cards yearly. Breast Cancer : Breast Cancer Screening (mammography). Next mammogram due: . Cervical Cancer Screening (pap test). Next pap due: . Prostate Cancer : PSA testing for ages 55-69 risks and benefits discussed . Influenza Vaccine : Flu shot yearly. Tetanus Vaccine : Every 10 years. Due: . The following vaccines are available from your pharmacy: Pneumonia Vaccine : PCV20: once after age 65. Shingles Vaccine : 2 shots after age 50. Covid Vaccine : Make sure you have received the most up to date covid vaccine. Your personal health goal for the year is: elton Not available 06/06/2024 19:41:46 Plan of Treatment Reminders Order Date Submit Date Provider Last Modified By Organization Details Last Modified Time Details Appointments Medical Managemen t 15 2024 11:00A M Vicky Bentley MD Not available Not available Not available Wellness Visit 30 2024 10:45A M Vicky Bentley MD Not available Not available Not available Lab drug screen, urine - Oxycodone 6 am & Morphine 12 am 12/16/23 No Temp Recorded 2023 024 [facility], [address] [place] [address], [id number], 12/17/2023 10:06:00 drug screen, urine - oxycodone & morphine Date and Time of Last Dose: 04/09/24 7:30 AM & 04/09/24 1am temp: 94F 2023 024 [facility], [address] [place] [address], [address], 04/10/2024 10:40:39 Referral pulmonolo gist referral - Pt w/ worsening COPD, recently had influenza and discharge d on home O2, needs to establish with pulmonolo gy 2023 024 MUKESH Tong, [address] [place] [address] [place], [address], 06/23/2024 12:19:18 Procedures colonosco py procedure (PROC) [address] [facility], [address] [place] [address], [address], 06/09/2024 12:38:43 Surgeries None recorded. Imaging None recorded. Medication Orders prednison e 20 mg tablet 2023 024 [place] [id number], [address] [place], [place], [id number], 12/16/2023 11:58:53 alendrona te 70 mg tablet 2023 [employer]HI[employer]wood Pharm[employer]va [facility], [address] [place] [address], [facility], [place], [place], [id number], 12/16/2023 12:51:39 alendrona te 70 mg tablet 2023 024 MUKESH [facility]gl[facility]Ye[facility]Lrb[facility], [address] [place] [address], [facility], [place], [place], [id number], 04/09/2024 12:23:10 hydrochlo rothiazid e 12.5 mg tablet 2023 MUKESH [employer]j[facility], [address] [place] [address], [address], [phone], 04/09/2024 12:23:11 Narcan 4 mg/actuat ion nasal spray 2023 MUKESH [employer] Bxtm-Mj-Clvk [facility], [address] [place] [address], [address], [id number], 04/09/2024 12:23:15 Patient TargetsNo targets recorded. Patient Instructions Encounter Date Encounter Id Patient Instructions Last Modified By Organization Details Last Modified Time 04/09/2024 [id number] My Health To Do List Specific Analgesia Plan: {{Continue present regimen* Adjust dose of present analgesic Switch analgesics Add/Ad just concomitant therapy Discontin ue/taper off opioid therapy}} Specific Goals for next visit {{increase exercise* start stress management improv e sleeping start Yoga start TaiChi see therapist}}The patient is currently {{at* not at}} their goal of safe, stable use of narcotic pain medication to improve their functioning in life. Since the last visit there has been {{activity of concern no activity of concern*}}:{{# ov eruse of meds request for an early refill abuse of staff noncomplian ce with UDS or pill count requests abnormal UDS}} Patient today is {{at high risk at moderate risk at low risk*}} for {{abuse of meds* misuse of meds}}. Monitoring will include {{pill counts repeat UDS* closer follow-up with shorter scripts}}. Patients current goals of {{better sleep more activity* return to work return to school improved ADL's improved self care improved function in roles}} were discussed with patient, unlikelihood of 100% reduction in pain made clear. Patient has read narcotics contract and understands the properties of narcotic medication. [email or web address] Not available 04/09/2024 11:06:03 06/05/2024 [id number] high blood pressure: care instructions [email or web address] Not available 06/06/2024 19:43:22 learning about high blood pressure [email or web address] Not available 06/06/2024 19:43:22 07/14/2024 [id number] I am aware of e inpatient facility discharge medications, the medication list above has been reconciled with those medications and reflects my understanding of an up to date medication list for this patient. [email or web address] Not available 07/14/2024 14:30:48 Reason for Referral Nurse Quality Referral for C hronic obstructive pulmonary disease Pt w/ worsening COPD, recently had influenza and discharged on home O2, needs to establish with pulmonology Referring Physician: Karly Scott, Family Medicine, Encounter Date: 11/18/2023 Results Created Date Observation Date Name Description Value Unit Range Abnormal Flag Note LastModifiedBy Organization Detail LastModifiedTime 12/16/19 24 12/17/2023 DRUG SCREE N-8, URINE , WITH CONFI RMATI ON GC/MS amphetamine NEG. negati ve Not Available [address], [address], 12/17/2023 10:06:00 12/16/19 24 12/17/2023 DRUG SCREE N-8, URINE , WITH CONFI RMATI ON GC/MS barbiturates NEG. negati ve Not Available [address], [address], 12/17/2023 10:06:00 12/16/19 24 12/17/2023 DRUG SCREE N-8, URINE , WITH CONFI RMATI ON GC/MS benzodiazepi ne NEG. negati ve Not Available [address], [address], 12/17/2023 10:06:00 12/16/19 24 12/17/2023 DRUG SCREE N-8, URINE , WITH CONFI RMATI ON GC/MS cocaine NEG. negati ve Not Available [address], [address], 12/17/2023 10:06:00 12/16/19 24 12/17/2023 DRUG SCREE N-8, URINE , WITH CONFI RMATI ON GC/MS opiates POS. negati ve GCMS= Sampl e sent to [facility] for confi rmati on by GC/MS . Not Available [address], [address], 12/17/2023 10:06:00 12/16/19 24 12/17/2023 DRUG SCREE N-8, URINE , WITH CONFI RMATI ON GC/MS methadone NEG. negati ve Not Available [address], [address], 12/17/2023 10:06:00 12/16/19 24 12/17/2023 DRUG SCREE N-8, URINE , WITH CONFI RMATI ON GC/MS fentanyl NEG. negati ve Syva EMIT II Limit s of Detec tion (cutt -off value s) Stafford Expan d: Amphe tamin es: 1000 ng/ml Opiat es: 300 ng/ml Rica tuate s: 200 ng/ml Oxyco done 100 ng/ml Benzo diaze pines : 200 ng/ml Metha done 300 ng/ml Cocai ne: 300 ng/ml Fenta nyl 1 ng/ml Not Available [address], [address], 12/17/2023 10:06:00 12/16/19 24 12/17/2023 DRUG SCREE N-8, URINE , WITH CONFI RMATI ON GC/MS oxycodone POS. negati ve GCMS= Sampl e sent to [facility] for [facility] on by GC/MS . Not Available [address], [place], [address], 12/17/2023 10:06:00 12/16/19 24 12/22/2023 DRUG TOX MONIT ORING OPIAT ES EXPAN DED QN, U codeine NEGATI VE NG/mL <50 See Note 1 Not Available [facility] [address], [address], 12/22/2023 11:07:59 12/16/19 24 12/22/2023 DRUG TOX MONIT ORING OPIAT ES EXPAN DED QN, U hydrocodone NEGATI VE NG/mL <50 See Note 1 Not Available [facility] [address], [address], 12/22/2023 11:07:59 12/16/19 24 12/22/2023 DRUG TOX MONIT ORING OPIAT ES EXPAN DED QN, U hydromorphon e NEGATI VE NG/mL <50 See Note 1 Not Available [facility] [address], [place], [address], 12/22/2023 11:07:59 12/16/19 24 12/22/2023 DRUG TOX MONIT ORING OPIAT ES EXPAN DED QN, U morphine 4506 NG/mL <50 high See Note 1 Not Available [facility] [address], [address], 12/22/2023 11:07:59 12/16/19 24 12/22/2023 DRUG TOX MONIT ORING OPIAT ES EXPAN DED QN, U norhydrocodo ne NEGATI VE NG/mL <50 See Note 1 Not Available [facility] [address], [address], 12/22/2023 11:07:59 12/16/19 24 12/22/2023 DRUG TOX MONIT ORING OPIAT ES EXPAN DED QN, U noroxycodone 1671 NG/mL <50 high See Note 1 Not Available [facility] [address], [place], [address], 12/22/2023 11:07:59 12/16/19 24 12/22/2023 DRUG TOX MONIT ORING OPIAT ES EXPAN DED QN, U oxycodone 1775 NG/mL <50 high See Note 1 Not Available [facility] [address], [place], [address], 12/22/2023 11:07:59 12/16/19 24 12/22/2023 DRUG TOX MONIT ORING OPIAT ES EXPAN DED QN, U oxymorphone 2246 NG/mL <50 high See Note 1 Not Available [facility] [address], [place], [address], 12/22/2023 11:07:59 12/16/19 24 12/22/2023 DRUG TOX MONIT ORING OPIAT ES EXPAN DED QN, U Unknown Analyte See Note 2 Note 1 This test was devel harley and its enedina tical perfo rmanc e leta cteri stics have been deter mined by [facility]. It has not been clear ed or appro valdemar by the FDA. This assay has been valid ated pursu ant to the CLIA regul ation s and is used for clini eligio purpo ses. Note 2 This drug testi ng is for medic al treat ment only. Enedina sis was perfo rmed as non-f orens ic testi ng and these resul ts shoul d be used only by healt hcare provi ders to rende r diagn osis or treat ment, or to monit or progr ess of medic al condi tions . For aleida tance with inter preti ng these drug resul ts, pleas e conta ct a [facility] Toxic ology Speci alist : [phone] ( [phone] ), M-F, 8am-6 pm EST. Not Available [facility] [address] [place] [address] B, [place], [address], 12/22/2023 11:07:59 03/19/20 24 03/23/2024 BASIC METAB OLIC PANEL glucose 105 mg/dL 70-100 high Not Available [address], [address], 03/23/2024 12:11:20 03/19/20 24 03/23/2024 BASIC METAB OLIC PANEL BUN 20 mg/dL 7-18 high Not Available [address], [address], 03/23/2024 12:11:20 03/19/20 24 03/23/2024 BASIC METAB OLIC PANEL creatinine 0.8 mg/dL 0.8-1. 3 Not Available [address], [address], 03/23/2024 12:11:20 03/19/20 24 03/23/2024 BASIC METAB OLIC PANEL B/C 25.0 ratio Not Available [address], [address], 03/23/2024 12:11:20 03/19/20 24 03/23/2024 BASIC METAB OLIC PANEL GFR >=60ML /MIN mL/mi n normal >=60m L/min - Latoya l or midly reduc ed <60mL /min- Decre ased kidne y funct ion <15mL /min - Kidne y failu re [facility] calcu lates estim ated Glome rular Filtr ation Rate (eGFR ) using the Chron ic Kidne y Disea se Epide miolo gy Colla borat ion (CKD- EPI) Equat ion (Terell r et. al 2020) as recom juana d by the Natio nal Kidne y Found ation . eGFR is based on age, serum creat inine , and sex. CKD-E PI does not calcu late eGFR by race, does not apply to child kin (age <18 years ), and shoul d not be used in pregn elvira. Not Available [address], [address], 03/23/2024 12:11:20 03/19/20 24 03/23/2024 BASIC METAB OLIC PANEL sodium 143 mmol/ L 136-14 5 Not Available [address], [address], 03/23/2024 12:11:20 03/19/20 24 03/23/2024 BASIC METAB OLIC PANEL potassium 4.0 mmol/ L 3.5-5. 1 Not Available [address], [address], 03/23/2024 12:11:20 03/19/20 24 03/23/2024 BASIC METAB OLIC PANEL chloride 100 mmol/ L 96-107 Not Available [address], [address], 03/23/2024 12:11:20 03/19/20 24 03/23/2024 BASIC METAB OLIC PANEL anion gap 10.5 5.0-15 .0 Not Available [address], [address], 03/23/2024 12:11:20 03/19/20 24 03/23/2024 BASIC METAB OLIC PANEL CO2 33 mmol/ L 21-32 high Not Available [address], [address], 03/23/2024 12:11:20 03/19/20 24 03/23/2024 BASIC METAB OLIC PANEL calcium 8.6 mg/dL 8.5-10 .3 Not Available [address], [address], 03/23/2024 12:11:20 03/19/20 24 03/23/2024 LIPID PANEL cholesterol 215 mg/dL <200 mg/dl Nhung able 200-2 39 mg/dl Borde rline High >240 mg/dl High Not Available [address], [address], 03/23/2024 12:11:21 03/19/20 24 03/23/2024 LIPID PANEL triglyceride s 95 mg/dL <150 mg/dL Latoya l 150-1 99 mg/dL Borde rline High 200-4 99 mg/dL High >500 mg/dL Very High Not Available [address], [address], 03/23/2024 12:11:21 03/19/20 24 03/23/2024 LIPID PANEL direct HDL 62 mg/dL <40 mg/dl - Major Risk for CHD >60 mg/dl - Negat ezequiel Risk for CHD Not Available [address], [address], 03/23/2024 12:11:21 03/19/20 24 03/23/2024 LDL - CALCU LATED LDL - calculated 134.0 RISK CATEG ORY LDL GOAL _ CHD or CHD Risk Equiv alent s <100 mg/dl (10-y ear risk >20%) 2+ Risk Facto rs <130 mg/dl (10-y ear risk <= 20%) 0-1 Risk Facto r??? <160 mg/dl ??? Almos t all peopl e with 0-1 risk facto r have a 10 year risk <10%, thus 10 year risk asses ment in peopl e with 0-1 risk facto r is not neces kathy. Not Available [address], [address], 03/23/2024 12:11:22 04/09/20 24 04/10/2024 DRUG SCREE N-8, URINE , WITH CONFI RMATI ON GC/MS amphetamine NEG. negati ve Not Available [address], [address], 04/10/2024 10:40:39 04/09/20 24 04/10/2024 DRUG SCREE N-8, URINE , WITH CONFI RMATI ON GC/MS barbiturates NEG. negati ve Not Available [address], [address], 04/10/2024 10:40:39 04/09/20 24 04/10/2024 DRUG SCREE N-8, URINE , WITH CONFI RMATI ON GC/MS benzodiazepi ne NEG. negati ve Not Available [address], [address], 04/10/2024 10:40:39 04/09/20 24 04/10/2024 DRUG SCREE N-8, URINE , WITH CONFI RMATI ON GC/MS cocaine NEG. negati ve Not Available [address], [address], 04/10/2024 10:40:39 04/09/20 24 04/10/2024 DRUG SCREE N-8, URINE , WITH CONFI RMATI ON GC/MS opiates POS. negati ve GCOP= Urine sampl e sent to [facility] for confi rmati on of opiat es by GC/MS . Not Available [address], [address], 04/10/2024 10:40:39 04/09/20 24 04/10/2024 DRUG SCREE N-8, URINE , WITH CONFI RMATI ON GC/MS methadone NEG. negati ve Not Available [address], [address], 04/10/2024 10:40:39 04/09/20 24 04/10/2024 DRUG SCREE N-8, URINE , WITH CONFI RMATI ON GC/MS fentanyl NEG. negati ve Syva EMIT II Limit s of Detec tion (cutt -off value s) Stafford Expan d: Amphe tamin es: 1000 ng/ml Opiat es: 300 ng/ml Rica tuate s: 200 ng/ml Oxyco done 100 ng/ml Benzo diaze pines : 200 ng/ml Metha done 300 ng/ml Cocai ne: 300 ng/ml Fenta nyl 1 ng/ml Not Available [address], [address], 04/10/2024 10:40:39 04/09/20 24 04/10/2024 DRUG SCREE N-8, URINE , WITH CONFI RMATI ON GC/MS oxycodone POS. negati ve GCOP= Urine sampl e sent to [facility] for confi rmati on of opiat es by GC/MS . Not Available [address], [address], 04/10/2024 10:40:39 04/09/20 24 04/12/2024 DRUG TOX MONIT ORING OPIAT ES EXPAN DED QN, U codeine NEGATI VE NG/mL <50 See Note 1 Not Available [facility] [address], [address], 04/12/2024 19:23:43 04/09/20 24 04/12/2024 DRUG TOX MONIT ORING OPIAT ES EXPAN DED QN, U hydrocodone NEGATI VE NG/mL <50 See Note 1 Not Available [facility] [address], [address], 04/12/2024 19:23:43 04/09/20 24 04/12/2024 DRUG TOX MONIT ORING OPIAT ES EXPAN DED QN, U hydromorphon e NEGATI VE NG/mL <50 See Note 1 Not Available [facility] [address], [address], 04/12/2024 19:23:43 04/09/20 24 04/12/2024 DRUG TOX MONIT ORING OPIAT ES EXPAN DED QN, U morphine 2105 NG/mL <50 high See Note 1 Not Available [facility] [address], [address], 04/12/2024 19:23:43 04/09/20 24 04/12/2024 DRUG TOX MONIT ORING OPIAT ES EXPAN DED QN, U norhydrocodo ne NEGATI VE NG/mL <50 See Note 1 Not Available [facility] [address], [address], 04/12/2024 19:23:43 04/09/20 24 04/12/2024 DRUG TOX MONIT ORING OPIAT ES EXPAN DED QN, U noroxycodone 491 NG/mL <50 high See Note 1 Not Available [facility] [address], [address], 04/12/2024 19:23:43 04/09/20 24 04/12/2024 DRUG TOX MONIT ORING OPIAT ES EXPAN DED QN, U oxycodone 561 NG/mL <50 high See Note 1 Not Available [facility] [address], [place], [address], 04/12/2024 19:23:43 04/09/20 24 04/12/2024 DRUG TOX MONIT ORING OPIAT ES EXPAN DED QN, U oxymorphone 1533 NG/mL <50 high See Note 1 Not Available [facility] [address], [address], 04/12/2024 19:23:43 04/09/20 24 04/12/2024 DRUG TOX MONIT ORING OPIAT ES EXPAN DED QN, U Unknown Analyte See Note 2 Note 1 This test was devel oped and its enedina tical perfo rmanc e leta cteri stics have been deter mined by [facility]. It has not been clear ed or appro valdemar by the FDA. This assay has been valid ated pursu ant to the CLIA regul ation s and is used for clini eligio purpo ses. Note 2 This drug testi ng is for medic al treat ment only. Enedina sis was perfo rmed as non-f orens ic testi ng and these resul ts shoul d be used only by healt hcare provi ders to rende r diagn osis or treat ment, or to monit or progr ess of medic al condi tions . For aleida tance with inter preti ng these drug resul ts, pleas e conta ct a [facility] Toxic ology Speci alist : [phone] ( [phone] ), M-F, 8am-6 pm EST. Not Available [facility] [address], [place], [address], 04/12/2024 19:23:43 12/14/19 24 12/13/2023 MAMMO , scree jairo, tomos ynthe sis, bilat eral MAMMO, SCREEN , DACIA, BILAT: 024. BI-RAD S: 1 CLINIC AL: 68-yea r old Female for Bilate ral Screen ing Mammog jose martin. No person al or first- degree family histor y of breast cancer . PRIOR EXAMS: Review ed previo us images from 2020, 2017 and 2015. MAMMOG OSVALDO TECHNI QUE: 3D mammog osvaldo (tomos ynthes is) and 2D mammog osvaldo (C-vie w) images are genera jinny. Images review ed with a CAD system . DENSIT Y B. There are scatte red areas of fibrog landul ar densit y. MAMMOG OSVALDO FINDIN GS Bilate ral: No suspic ious mass, asymme try, microc alcifi cation , or other abnorm ality seen. CONCLU JOSHUA * No eviden ce of malign elvira. RECOMM ENDATI ONS Bilate ral * Annual screen ing mammog osvaldo. ADMINI STRATI VE: A lay summar y was mailed to your patien promise echols the result s and recomm endati ons for follow -up. OVERAL L ASSESS MENT CATEGO RY BI-RAD S-1: Negati ve. The [employer] recomm ends annual screen ing mammog osvaldo beginn ing at age 40 for women with averag e risk of breast cancer . ELECTR ONICAL LY SIGNED : Brenda Alexander ms, M.D. on 2023 at 09:18: 56 PM Leo beckman Physic avery: Brenda Alexander [facility] (Im[facility]) [address] , [place], [address], 12/16/2023 08:20:33 06/29/20 24 06/29/2024 XR, chest No observ ation record ed. [address], [address], 06/30/2024 12:46:10 09/03/19 25 06/29/2024 XR, chest No observ ation record ed. [address], [address], 09/03/2024 10:32:21 09/03/19 25 06/29/2024 XR, chest No observ ation record ed. [address], [address], 09/04/2024 08:33:47 09/03/19 25 09/03/2024 XR, chest CLINIC AL HISTOR Y: COPD exacer bation . Follow -up. TECHNI QUE: Fronta l view and latera l view of the chest obtain ed. COMPAR MANUEL: 2022, 2021 FINDIN GS: The heart is normal in size and config uratio n.Ther e is no hilar or medias tinal enlarg ement. There is no focal lung consol idatio n or infilt rate. There are promin ent inters titial markin gs. There is no defini te superi mposed acute pathol ogy. The bony thorax is intact . IMPRES JOSHUA: No acute diseas e. COPD. An addend um to this report will be genera jinny if the patien t's prior radiog raphs become availa ble. Leo beckman Physic avery: Brenda Alexander ms [facility] (Im[facility]) [address] [place], [address], 09/03/2024 15:33:10 09/10/19 25 09/03/2024 XR, chest Addend um: Recent imagin g from 2023 is availa ble for compar manuel. Bronch ial wall thicke jairo appear s decrea sed compar ed to the 2823 radiog raph. This sugges ts interv al improv ement in the nonspe cific findin g. There is no change in the impres joshua. CLINIC AL HISTOR Y: COPD exacer bation . Follow -up. TECHNI QUE: Fronta l view and latera l view of the chest obtain ed. COMPAR MANUEL: 2022, 2021 FINDIN GS: The heart is normal in size and config uratio n. There is no hilar or medias tinal enlarg ement. There is no focal lung consol idatio n or infilt rate. There are promin ent inters titial markin gs. There is no defini te superi mposed acute pathol ogy. The bony thorax is intact . IMPRES JOSHUA: No acute diseas e. COPD. An addend um to this report will be genera jinny if the patien t's prior radiog raphs become availa ble. Leo beckman Physic avery: Brenda Alexander ms [facility] ([facility]) [address] [address] [place], [address], 09/10/2024 07:26:54 Result Notes None recorded. Problems Name Problem SNOMED Code Status Onset Date Resolution Date Notes Provider Name and Address Organization Details Recorded Time Recurren t major depressi ve episodes 875759085 Active 2011 Not Available [facility] 0 14:16:47 Major depressi on, melancho lic type 224056547 Completed 201311/25/2020 Removal Reason: recurren t coded and on active problem list SHERRY Head, [facility] 1 06:21:11 Chronic obstruct ezequiel pulmonar y disease 05054945 Active Not Available [facility] 0 14:16:47 Benign essentia l hyperten joshua 7802087 Active 2018 Not Available [facility] 0 14:16:47 Mixed hyperlip idemia 436746585 Active 2018 Not Available [facility] 0 14:16:47 Opioid dependen ce 42139302 Active 2020 coded 01/28/20 Virtual Visit SHERRY Head, [facility] 1 06:21:51 Essentia l hyperten joshua 29883328 Active 2021 Vicky Bentley MD [address] [place] [address], [phone] , [facility] 2 12:24:07 History of acute respirat ory failure 51393121773 767578 Active 2023 Shruthi Foy NP [address] [place] [address], [phone] , [facility] 4 09:55:01 Nodule of lung 896352100 Active 2023 Shruthi Foy NP [address] [place] [address], [phone] , [facility] 4 09:55:24 Acquired trigger finger 1018846 Completed 200404/02/2011 Not Available [facility] 3 03:06:02 Contusio n 623881435 Completed 200102/06/2011 Not Available [facility] 3 03:06:02 Open wound of finger 345216962 Completed 200002/06/2011 Not Available [facility] 3 03:06:02 Contact dermatit is 01467768 Completed 200204/02/2011 Not Available [facility] 3 03:06:02 Gastroes ophageal reflux disease 703847338 Active Not Available [facility] 0 14:16:48 Cellulit is and abscess of hand excludin g digits Completed 200002/06/2011 Not Available [facility] 3 03:06:02 Diarrhea 73241157 Completed 200204/02/2011 Not Available [facility] 3 03:06:02 Disorder of trunk 041178062 Completed 200102/06/2011 Not Available [facility] 3 03:06:02 Sciatica 91261925 Completed 200104/02/2011 Not Available [facility] 3 03:06:02 Contact dermatit is due to plants, except food Completed 200002/06/2011 Not Available [facility] 3 03:06:02 Emphysem atous bronchit is 125174833 Active Not Available [facility] 0 14:16:47 Chronic asthmati c bronchit is 487121820 Active 2003 Not Available [facility] 0 14:16:47 Chronic pain 95843713 Active Not Available [facility] 0 14:16:47 Chronic pain 60653576 Completed 04/02/2011 Not Available [facility] 3 03:06:02 Low back pain 813472717 Completed 200102/06/2011 Not Available [facility] 3 03:06:02 Displace ment of lumbar interver tebral disc without myelopat hy 68909867 Active 2001 Not Available [facility] 0 14:16:48 Asthma 877114032 Active 1999 Not Available [facility] 0 14:16:47 Pain in limb 18637667 Completed 200102/06/2011 Not Available [facility] 3 03:06:02 Cellulit is and abscess of trunk 205218597 Completed 200204/02/2011 Not Available [facility] 3 03:06:02 Problem Notes None recorded. Procedures Surgical History Date Name Laterality Status Provider Name and Address Organization Details Recorded Time 07/14/20 24 Post hospital/SNF follow-up/Transiti onal Care completed Angy Yi [facility] 07/14/2024 14:30:48 06/05/20 24 Medicare Wellness Visit completed Skye Steve MA [facility] 06/05/2024 11:34:39 06/05/20 24 Cardiovascular disease risk reduction counseling completed Vicky Bentley MD [address] [place] [address], [phone], [facility] 06/06/2024 19:42:41 11/18/19 24 Oxygen Administration completed Yi Mckenzie RN [facility] 11/18/2023 11:29:28 11/11/19 24 Oxygen Administration completed Mariza Martin LPN [facility] 11/11/2023 09:16:23 05/31/20 23 Medicare Wellness Visit completed Neil Brewster [facility] 05/31/2023 12:36:43 05/31/20 23 Cardiovascular disease risk reduction counseling completed Vicky Bentley MD [address] [place] [address], [phone], [facility] 06/02/2023 19:50:47 03/18/20 23 Asthma Control Test (12 + years old) completed Carlos Black MA [facility] 03/18/2023 16:15:16 05/31/20 22 Post hospital/SNF follow-up/Transiti onal Care completed Neil Brewster CMA [facility] 05/31/2022 08:46:05 04/25/20 22 Medicare Wellness Visit completed Rima yee MA [facility] 04/25/2022 08:34:47 04/25/20 22 Alcohol use screening completed Rima yee MA [facility] 04/25/2022 08:34:47 04/25/20 22 Cardiovascular disease risk reduction counseling completed Rima yee MA [facility] 04/25/2022 08:34:47 08/23/20 21 Asthma Control Test (12 + years old) completed Malgorzata Campo MA [facility] 08/22/2021 15:11:05 05/12/20 20 prevention-cardiov ascular risk reduction counseling completed Anna Montelongo MA [facility] 05/11/2020 16:37:01 05/12/20 20 prevention-annual alcohol misuse screening completed Anna MontelongoTIMA [facility] 05/11/2020 16:37:01 05/12/20 20 Medicare Annual Wellness Visit completed Annayanet MontelongoTIMA [facility] 05/11/2020 16:37:01 05/11/20 19 Medicare Wellness Visit completed Matt Miles [facility] 05/11/2019 15:29:26 05/11/20 19 Asthma Control Test (12 + years old) completed Matt Miles [facility] 05/11/2019 15:37:53 08/16/20 16 Cholecystectomy completed Kleber Piper MD [address] [place] [address], [phone], [facility] 08/17/2016 16:42:42 09/26/19 16 Medicare Wellness Visit completed Kleber Piper MD [address] [place] [address], [phone], [facility] 09/26/2015 09:39:10 03/17/20 13 Asthma Control Test (12 + years old) completed Kleber Piper MD [address] [place] [address], [phone], [facility] 03/17/2013 13:44:57 Tonsillectomy completed Not Available [facility] 07/19/2011 06:05:52 Imaging Results Imaging Date Name Status [facility]Modified by [facility] Details LastModified Time 12/13/2023 MAMMO, screening, tomosynthesis, bilateral completed [facility] (Imaging) [address], [place], [address], 12/16/2023 08:20:33 06/29/2024 XR[facility] chest [facility] [address], [address], 06/30/2024 12:46:10 06/29/2024 XR, chest completed [facility] [address], [address], 09/03/2024 10:32:21 06/29/2024 XR, chest completed [facility] [address] [place], [address], 09/04/2024 08:33:47 09/03/2024 XR, chest completed [facility] (Imaging) [address] [place], [address], 09/03/2024 15:33:10 09/03/2024 XR, chest completed [facility] (Imaging) [address] [place], [address], 09/10/2024 07:26:54 Procedure Notes None recorded. Medical Equipment None Reported. Allergies Allergen ID Allergen Name Allergen Category Reaction Reaction Severity Criticality Documentation Date Start Date Code Code System Note Provider Name and Address Organization Details Recorded Time 388563 budesonid e medicatio n wheezing severe high 03/18/2023 RxNorm TIMA Rutherford [facility] 16:07:55 Medications Name Sig Start Date Stop [...] Available Not Available No t Available Fluzone [id number] (PF) 45 mcg (15 mcg x 3)/0.5 mL intramusc ular syringe TO BE ADMINIST ERED BY [email or web address] FOR IMMUNIZA TION 01/09 completed Not Available [...] route for suspecte d opioid overdose . [place] 1 mL in one nostril. Repeat after 3 minutes if no or minimal response 2023 active Not Available Not Available Not Avai lable Flucelvax Quad (PF) 60 mcg (15 mcg x 4)/0.5 mL IM syringe TO BE ADMINIST ERED BY [employer] FOR IMMUNIZA TION 07/04 completed Not Available Not Available Not Available oxygen Use 3 liters via nasal cannula on exertion , or as directed 2023 active Per d/c summary [facility] 07/04/24, uses [employer] Not Available Not Available [...] d Address Organization Details Last Updated DateTime 11/18/2023 162.56 cm Nan Porter Rico [facility] 11/18/2023 11:21:58 Date Recorded Body mass index (BMI) Body weight Provider Name and Address Organization Details Last Updated DateTime 11/18/2023 24.9 kg/m2 96500.89 g Nan [place] [facility] 11/18/2023 11:23:10 Date Recorded Oxygen saturation Oxygen saturation in Arterial blood by Pulse oximetry Provider Name and Address Organization Details Last Updated DateTime 11/18/2023 91 % 91 % Nan Porter [facility] 11/18/2023 11:23:26 Date Recorded Heart rate Provider Name an d Address Organization Details Last Updated DateTime 11/18/2023 98 /min Nan Porter [facility] Suj[facility] 11/18/2023 11:23:29 Date Recorded Body height Provider Name an d Address Organization Details Last Updated DateTime 12/16/2023 162.56 cm Skye Steve MA [facility] 12/16/2023 11:32:52 Date Recorded Body mass index (BMI) Body weight Provider Name and Address Organization Details Last Updated DateTime 12/16/2023 24.9 kg/m2 03363.89 g Skye Steve MA [facility] 12/16/2023 11:34:13 Date Recorded Heart rate Provider Name an d Address Organization Details Last Updated DateTime 12/16/2023 88 /min Skye Steve MA [facility] 12/16/2023 11:34:46 Date Recorded Body height Provider Name an d Address Organization Details Last Updated DateTime 04/09/2024 162.56 cm Skye Steve MA [facility] 04/09/2024 11:11:59 Date Recorded Oxygen saturation Oxygen saturation in Arterial blood by Pulse oximetry Provider Name and Address Organization Details Last Updated DateTime 04/09/2024 95 % 95 % Skye Steve MA [facility] 04/09/2024 11:13:05 Date Recorded Heart rate Provider Name an d Address Organization Details Last Updated DateTime 04/09/2024 76 /min Skye Steve MA [facility] 04/09/2024 11:13:07 Date Recorded Body mass index (BMI) Body weight Provider Name and Address Organization Details Last Updated DateTime 04/09/2024 26.3 kg/m2 10734.73 g Skye Steve MA [facility] 04/09/2024 11:14:19 Date Recorded Body height Provider Name an d Address Organization Details Last Updated DateTime 06/05/2024 162.56 cm Skye Steve MA [facility] 06/05/2024 11:36:29 Date Recorded Oxygen saturation Oxygen saturation in Arterial blood by Pulse oximetry Provider Name and Address Organization Details Last Updated DateTime 06/05/2024 97 % 97 % Skye Steve MA [facility] 06/05/2024 11:41:11 Date Recorded Heart rate Provider Name an d Address Organization Details Last Updated DateTime 06/05/2024 86 /min Skye Steve MA [facility] 06/05/2024 11:41:14 Date Recorded Body mass index (BMI) Body weight Provider Name and Address Organization Details Last Updated DateTime 06/05/2024 26.5 kg/m2 88850.02 rk Skye Steve MA [facility] 06/05/2024 11:42:40 Date Recorded Body height Provider Name an d Address Organization Details Last Updated DateTime 07/14/2024 162.56 cm Angy Yi [facility] 07/14/2024 14:31:07 Date Recorded Body mass index (BMI) Body weight Provider Name and Address Organization Details Last Updated DateTime 07/14/2024 25.6 kg/m2 75756.36 g Angy Yi [facility] 07/14/2024 14:32:46 Date Recorded Heart rate Provider Name an d Address Organization Details Last Updated DateTime 07/14/2024 94 /min Angy Yi [facility] 07/14/2024 14:38:21 Date Recorded Oxygen saturation Oxygen saturation in Arterial blood by Pulse oximetry Provider Name and Address Organization Details Last Updated DateTime 07/14/2024 94 % 94 % Angy Yi [facility] 07/14/2024 14:38:36 Date Recorded Systolic blood pressure Diastolic blood pressure Provider Name and Address Organization Details Last Updated DateTime 11/18/2023 142 mm[Hg] 72 mm[Hg] Nan Porter Rico [facility] 11/18/2023 11:23:08 Date Recorded Systolic blood pressure Diastolic blood pressure Provider Name and Address Organization Details Last Updated DateTime 12/16/2023 122 mm[Hg] 68 mm[Hg] Skye Steve MA [facility] 12/16/2023 11:35:41 Date Recorded Systolic blood pressure Diastolic blood pressure Provider Name and Address Organization Details Last Updated DateTime 04/09/2024 126 mm[Hg] 72 mm[Hg] Skye Steve MA [facility] 04/09/2024 11:14:02 Date Recorded Systolic blood pressure Diastolic blood pressure Provider Name and Address Organization Details Last Updated DateTime 06/05/2024 122 mm[Hg] 66 mm[Hg] Skye Steve MA [facility] 06/05/2024 11:42:03 Date Recorded Systolic blood pressure Diastolic blood pressure Provider Name and Address Organization Details Last Updated DateTime 07/14/2024 100 mm[Hg] 62 mm[Hg] Angy Yi [facility] 07/14/2024 14:37:12 Social History Question Answer Notes LastModified by Organizat ion Details LastModified Time Tobacco Smoking Status Former Smoker quit in october TIMA Benitez [facility] 02/20/2021 12:30:50 Do You Have An Advance Directive? Yes spouse [email or web address] Information not available 10/01/2022 What Is Your Level Of Alcohol Consumption? Occasional Veryvery Rare [email or web address] Information not available 06/05/2024 Do You Wear [...] No Waiting For Grandson To Be Born [email or web address] Information not available 06/05/2024 When Did You Quit Smoking? 16+yearssince lastcigarette [email or web address] Information not available 08/19/2023 Are There Any Guns Present In Your Home? Yes LOCKED Information not available 10/04/2011 Do You Use Insect Repellent Routinely? No [email or web address] Information not available 06/05/2024 Live Alone Or With Others? With Others [email or web address] Information not available 10/01/2022 CSRP - Narcotics Yes 7 Information not available 07/19/2011 CSRP Contract Signed And Discussed Yes Dr. Bentley Contract 10/01/2022 Narcotics 7 Information not available 07/19/2011 Does The Patient Have Difficulty Speaking Citizen Of [place]? No Information not available 03/24/2014 Does The Patient Have Difficulty Reading Citizen Of [place]? No Information not available 03/24/2014 Patient Has Health Care Proxy Signed And In Chart Yes Given 05/11/19 Aniyah Pt To Send Copy 05/31/23 Sabiha [email or web address] Information not available 05/12/2019 Marital Status [email or web address] Informatio n not available 10/01/2022 Mosquito Repellent Used Routinely Yes [email or web address] Information not available 10/01/2022 What Was The Date Of Your Most Recent Tobacco Screening? 07/14/2024 [email or web address] Information not available 07/14/2024 How Many Children Do You Have? 3 7 Information not available 07/19/2011 What Is Your Current Pack Years? 10-19packyear s [email or web address] Information not available 04/09/2024 What Is Your [...] How Much Tobacco Do You Smoke? No [email or web address] Information not available 04/09/2024 What Types Of Sporting Activities Do You Participate In? None 7 Information not available 07/19/2011 General Stress Level Low [email or web address] Information not available 10/01/2022 Do You Use Any Illicit Or Recreational Drugs? No Information not available 08/03/2022 Do You Use Sunscreen Routinely? No [email or web address] Information not available 06/05/2024 How Many Years Have You Smoked Tobacco? 15 alot [email or web address] Information not available 04/09/2024 Do You Or [...] exercise level? Moderate 5 miles walking daily [email or web address] Information not available 06/05/2024 Mental Status Question Answer Note LastModified by Organizat ion Details LastModified Time Do you have difficulty concentrating, remembering or making decisions? No some memorary issue -04/05/14 [email or web address] Information not available 10/01/2022 Family History Nothing Reported Notes:father - cancer prosta te, mother- dm,copd Medical History Condition Response Kidney Stones Y COPD Y Alcoholism Asthma Chronic Back Pain Y GERD Y Gynecological History Statement/Question Response LMP Obstetrics History GPAL:G 0 P 0 0 0 0 Immunizations Vaccine Type Date Status Note Provider Nam e and Address Organization Details Recorded Time influenza, unspecified formulation 3 completed Not Available [facility] 07/18/2011 05:21:07 influenza, unspecified formulation 4 completed Not Available [facility] 07/18/2011 05:21:07 Influenza, split virus, trivalent, preservative 1 completed Not Available [facility] 09/19/2019 02:38:55 pneumococcal polysaccharide PPV23 1 completed Not Available [facility] 09/19/2019 02:14:32 Td(adult) unspecified formulation 5 completed Not Available [facility] 07/18/2011 05:21:07 Tdap 3 completed Not Available [facility] 09/19/2019 02:29:25 Influenza, split virus, trivalent, PF 4 completed Not Available [facility] 09/19/2019 02:26:36 Influenza, high-dose, trivalent, PF 3 completed Not Available [email or web address] 10/01/2022 10:56:31 Influenza, split virus, quadrivalent, PF 3 completed Not Available [facility] 10/01/2022 10:56:31 Influenza, split virus, quadrivalent, preservative 8 completed Not Available [facility] 10/01/2022 10:56:30 Influenza, split virus, quadrivalent, preservative 9 completed Not Available [facility] 10/01/2022 10:56:30 pneumococcal polysaccharide PPV23 1 [facility] 15:32:17 Td (adult), 2 Lf tetanus toxoid, preservative free, adsorbed 3 completed Vicky Bentley MD [address] [place] [address], [phone], [facility] 03/23/2023 14:44:29 COVID-19, mRNA, LNP-S, PF, 100 mcg/0.5mL dose or 50 mcg/0.25mL dose 1 [facility] 12/16/2023 11:12:22 COVID-19, mRNA, LNP-S, PF, 100 mcg/0.5mL dose or 50 mcg/0.25mL dose 1 [facility] 12/16/2023 11:12:22 COVID-19, mRNA, LNP-S, PF, 100 mcg/0.5mL dose or 50 mcg/0.25mL dose 1 [facility] 12/16/2023 11:12:22 COVID-19, mRNA, LNP-S, PF, 100 mcg/0.5mL dose or 50 mcg/0.25mL dose 2 [facility] 12/16/2023 11:12:22 COVID-19, mRNA, LNP-S, bivalent, PF, 50 mcg/0.5 mL or 25mcg/0.25 mL dose 2 [facility] 12/16/2023 11:12:22 zoster recombinant 2 [facility] 12/16/2023 11:12:21 Influenza, high-dose, quadrivalent, PF 2 [facility] 12/16/2023 11:12:22 zoster recombinant 2 [facility] 12/16/2023 11:12:22 influenza, unspecified formulation 3 completed [facility] 08/19/2023 09:23:44 Influenza, MDCK, quadrivalent, PF 7 completed [facility] 12/16/2023 11:12:21 Influenza, high-dose, quadrivalent, PF 1 [facility] 12/16/2023 11:12:22 Influenza, high-dose, quadrivalent, PF 3 [facility] 12/16/2023 11:12:22 RSV, bivalent, protein subunit RSVpreF, diluent reconstituted, 0.5 mL, PF 3 [facility] 12/16/2023 11:12:22 COVID-19, mRNA, LNP-S, PF, melquiades-sucrose, 30 mcg/0.3 mL 3 completed [facility] 12/16/2023 11:12:22 Influenza, split virus, trivalent, preservative 9 [facility] 12/16/2023 11:12:22 Influenza, split virus, trivalent, PF 0 [facility] 12/16/2023 11:12:22 Influenza, split virus, trivalent, PF 6 [facility] 12/16/2023 11:12:22 Influenza, split virus, trivalent, PF 5 completed [facility] 12/16/2023 11:12:22 Influenza, split virus, quadrivalent, PF 8 completed TIMA Anglin [facility] 12/16/2023 11:12:22 Influenza, high-dose, trivalent, PF 4 completed TIMA Anglin [facility] 06/05/2024 11:38:31 influenza, unspecified formulation 0 completed Not Available [facility] 07/18/2011 05:20:34 Past Encounters Encounter ID Performer Location Encounter Start Date Encounter Closed Date Diagnosis/Indication Diagnosis SNOMED-CT Code Diagnosis ICD10 Code Diagnosis Note [id number] [facility], [address]ICE [address] [place] [address] 08/05/2000 14:05:00 09/22/2008 02:02:29 [id number] [facility] [address] [place] [address] 01/12/2001 14:30:00 09/22/2008 02:02:29 [id number] [facility] [address] [place] [address] 01/18/2001 10:45:00 09/22/2008 02:02:29 [id number] [facility] [address] [place] [address] 02/22/2001 11:45:00 09/22/2008 02:02:29 [id number] [facility], [address] [place] [address] 08/22/2001 09:00:00 09/22/2008 02:02:29 [id number] Radiology , [address] [address] 10/07/2001 09:30:00 09/22/2008 02:02:29 [id number] Radiology , [address] [address] 10/07/2001 00:00:00 09/22/2008 02:02:29 [id number] [facility], [address] [place] [address] 12/23/2001 10:30:00 09/22/2008 02:02:29 [id number] Radiology , [facility] [address] [place] [address] 12/23/2001 10:45:00 09/22/2008 02:02:29 [id number] Radiology , [facility] [address] [place] [id number] 12/23/2001 00:00:00 09/22/2008 02:02:29 [id number] , [facility], OFFICE [address] [facility] [place] [id number] 02/04/2002 13:59:33 09/22/2008 02:02:29 [id number] , [facility], OFFICE [address] [facility] [place] [id number] 02/06/2002 15:43:21 09/22/2008 02:02:29 [id number] Physical Therapy, [facility] [address] [place] [id number] 02/10/2002 10:28:49 09/22/2008 02:02:29 [id number] Physical Therapy, [facility] [address] [place] [id number] 02/20/2002 10:12:54 09/22/2008 02:02:29 [id number] [facility], [address] [place] [address] 02/25/2002 09:10:34 09/22/2008 02:02:29 [id number] , [facility], [address] [place] [address] 03/20/2002 08:24:14 09/22/2008 02:02:29 [id number] , [facility], [address] [place] [address] 05/18/2002 09:05:54 09/22/2008 02:02:29 [id number] Physical Therapy, [facility] [address] [place] [address] 05/21/2002 08:24:50 09/22/2008 02:02:29 [id number] Physical Therapy, [facility] [address] [place] [address] 07/27/2002 12:51:55 09/22/2008 02:02:29 [id number] , [facility], [address] [place] [address] 08/31/2002 10:33:45 09/22/2008 02:02:29 [id number] , [facility], [address] [place] [address] 11/06/2002 15:00:08 09/22/2008 02:02:29 [id number] [facility], [address] [place] [address] 12/28/2002 10:14:58 09/22/2008 02:02:29 [id number] [facility], [address] [place] [address] 02/12/2003 08:56:29 09/22/2008 02:02:29 [id number] JONNY [facility], [address] [place] [address] 03/02/2003 14:21:56 09/22/2008 02:02:29 [id number] LAB - [facility] [address] [place] [address] 03/02/2003 15:01:11 09/22/2008 02:02:29 [id number] LAB - [address] [place] [id number] 03/04/2003 09:31:51 09/22/2008 02:02:29 [id number] JONNY [facility], [address] [place] [address] 05/28/2003 11:56:50 05/31/2003 14:28:24 [id number] [facility], [address] [place] [address] 06/07/2003 17:44:06 06/07/2003 17:44:11 [id number] [facility] [address] [facility] [place] [id number] 2003 00:00:00 09/22/2008 02:02:29 [id number] JONNY [facility], [address] [place] [address] 02/28/2004 09:46:53 02/28/2004 13:18:03 [id number] JONNY [facility], [address] [place] [place] [address] 06/05/2004 14:57:20 06/06/2004 08:42:24 [id number] [facility] [address] [place] [address] 02/07/2005 08:38:05 02/07/2005 14:19:37 [id number] [facility] [address] [place] [address] 6 07/31/2005 15:16:01 09/22/2008 02:02:29 [id number] JONNY [facility], [address] [place] [address] 02/12/2006 09:41:31 02/12/2006 11:17:42 [id number] [facility] [address] [place], [place] [address] 02/18/2007 11:03:35 02/18/2007 14:32:16 [id number] [facility], [address] [place] [place], [place] Kumar[address]291[address] 6 05/16/2009 11:44:34 05/16/2009 16:17:05 [id number] [facility], [address] [place] [address] 6 07/27/2009 10:04:18 07/27/2009 13:27:36 [id number] [facility], [address] [place], [place] [address] 6 08/05/2009 09:19:22 08/09/2009 14:41:32 [id number] [facility], [facility] [address] [facility] [place], [place] [address] 08/02/2010 08:53:38 08/02/2010 12:09:07 [id number] MD JONNY Koo, [facility] [address] [facility] [address] [place], [place] [address] 12/25/2010 13:23:09 12/27/2010 09:40:30 [id number] Kleber Piper MD [facility], [address] [place], [place] [address] 04/02/2011 07:40:36 04/02/2011 08:21:58 [id number] [facility], [facility] [facility] [address] [place], [place] [address] 6 06/26/2011 08:44:23 06/26/2011 10:14:38 [id number] [facility], OFF[address] [facility] [address] [place], [place] [address] 6 06/29/2011 07:34:11 06/29/2011 13:26:43 [id number] [facility], OFFICE [address] [facility] [address] [place], [place] [address] 10/04/2011 09:40:48 10/04/2011 10:52:43 [id number] [facility], OFFICE [address] [facility] [address] [place], [place] [address] 11/02/2011 09:07:34 11/02/2011 09:32:35 [id number] MD JONNY Koo [facility], OFFICE [address] [facility] [address] [place], [place] [address] 01/01/2012 09:13:07 01/03/2012 09:26:15 [id number] Kleber Piper MD , [facility] [address] [place] [address] 04/02/2012 08:48:27 04/02/2012 09:28:20 [id number] Kleber Piper MD , [facility] [address] [place] [address] 6 08/11/2012 08:10:32 08/11/2012 08:45:50 [id number] Kleber Piper MD , [facility] [address] [place] [address] 6 11/12/2012 10:12:37 11/12/2012 10:57:39 [id number] , [facility] [address] [place] [address] 6 03/17/2013 09:48:52 03/17/2013 10:58:55 [id number] Kleber Piper MD , [facility] [address] [place] [address] 6 04/09/2013 08:20:21 04/09/2013 08:43:03 [id number] Ananth Concepcion MA , [facility], [address] [place] [address] 6 05/06/2013 08:26:24 05/07/2013 16:29:59 Asthma [id number] Kleber Piper MD , [facility] [address] [place] [address] 6 06/02/2013 07:49:54 06/02/2013 08:42:29 Chronic pain 42655259 fair control on current regimen; continue same dose of narcotics; ibuprofen helps Gastroesop hageal reflux disease 244580898 Anxiety disorder 472979000 Moderate depression 965909218 [id number] Kleber Piper MD , [facility] [address] [place] [address] 6 09/10/2013 09:55:05 09/10/2013 10:24:28 Chronic pain 23766964 same dose of morphine Gastroesop hageal reflux disease 900174360 Moderate depression 611356633 [id number] Kleber Piper MD , [facility] [address] [place] [address] 12/03/2013 09:16:06 12/03/2013 10:09:54 Chronic pain 88432883 same dose of morphine- not interested in trying to cut back pain control isstable but just moderate. failed adjuvent therapies. does take ibuprofen high dose Major depr ession, melancholic type 559382440 doing okay off med for now Epidermoid cyst 392104831 reassured Chronic ob structive pulmonary disease 47119481 albuterol prn [id number] Lorenzo Wagner MD , [facility] [address] [place] [address] 12/05/2013 14:39:18 12/05/2013 15:34:14 Nausea and vomiting 50258971 Dizziness 386763117 [id number] Kleber Piper MD , [facility] [address] [place] [address] 6 12/07/2013 14:41:32 12/07/2013 15:26:42 Vertigo 068081444 most likely BPV. call if returns. pt and educated about condition [id number] Kleber Piper MD , [facility] [address] [place] [address] 03/24/2014 10:44:05 03/24/2014 11:30:47 Sprain of foot 70881964 heat, rest, arch support and ibuprofen 400mg qid. call prn [id number] Maria De Jesus Mosher MA , [facility], [address] [place] [address] 04/05/2014 10:03:37 04/05/2014 10:45:45 Counseling [id number] Adult heal th examination 773738204 see Risk Assessment and Lifestyle Change Counseling section above Chronic ob structive pulmonary disease 71300291 albuterol with spacer prn Chronic pain 72513322 sa me dose of morphine- still with back pain but managing [id number] Kleber Piper MD , [facility] [address] [place] [address] 6 07/06/2014 09:20:02 07/06/2014 09:48:22 Chronic pain 71312359 same dose of morphine- still with back pain but managing Emphysemat ous bronchitis 628452862 albuterol with spacer prn Gastroesop hageal reflux disease 784629253 Influenza vaccine needed [id number] , [facility] [address] [place] [address] 10/05/2014 09:14:57 10/05/2014 09:54:43 Chronic pain 92714256 same dose of morphine- still with back pain but managing Chronic ob structive pulmonary disease 09793240 albuterol with spacer prn Moderate depression 036563632 in remission off meds - uses clonazepam prn for anxiety [id number] Kleber Piper MD , [facility] [address] [place] [address] 12/30/2014 09:37:48 12/30/2014 10:24:03 Chronic pain 39729829 same dose of morphine- still with back pain but managing Chronic ob structive pulmonary disease 04806955 albuterol with spacer prn Moderate depression 933145004 in remission off meds - uses clonazepam prn for anxiety Gastroesop hageal reflux disease 862010196 [id number] Kleber Piper MD , [facility] [address] [place] [address] 03/24/2015 09:42:24 03/24/2015 10:13:01 Displacement of lumbar intervertebral disc without myelopathy 85068577 Chronic pain 47310373 sa me dose of morphine- still with back pain but managing Chronic ob structive pulmonary disease 28970383 albuterol with spacer prn Moderate depression 791187184 in remission off meds - uses clonazepam prn for anxiety Gastroesop hageal reflux disease 477953672 [id number] Isabel Adrian , [facility], [address] [place] [address] 06/14/2015 09:17:07 06/14/2015 10:06:46 Chronic pain 68063707 R52 G89.29 same dose of morphine- still with back pain but managing Displaceme nt of lumbar intervertebral disc without myelopathy 39992397 M51.26 Chronic ob structive pulmonary disease 68788499 J44.9 albuterol with spacer prn Moderate depression 3104 69426 F32.1 in remission off meds - uses clonazepam prn for anxiety Gastroesop hageal reflux disease 248530905 K21.9 [id number] Klbeer Piper MD , [facility] [address] [place] [address] 09/26/2015 08:41:09 09/26/2015 10:22:04 Chronic pain 40231823 R52 same dose of morphine- still with back pain but managing Adult heal th examination 762427523 Z00.00 see Risk Assessment and Lifestyle Change Counseling section above Counseling 985873941 Z71 .9 Screening for disorder 351107415 Z13.9 Chronic ob structive pulmonary disease 78938666 J44.9 albuterol with spacer prn Screening for malignant neoplasm of cervix 560813458 Z12.4 Mucocele of mouth 890519 008 K13.79 pt to let me know when she wants this removed. will refer to ENT [id number] Kleber Piper MD , [facility] [address] [place] [address] 12/26/2015 09:11:04 12/26/2015 10:13:09 Chronic pain 57255370 R52 same dose of morphine- still with back pain but managing Chronic ob structive pulmonary disease 16856243 J44.9 albuterol with spacer prn Gastroesop hageal reflux disease 386929367 K21.9 [id number] Kleber Piper MD , [facility] [address] [place] [address] 03/26/2016 09:20:40 03/27/2016 11:32:15 Chronic pain 10763548 R52 pt told of higher risk of if taking over 100mg of morphine a day. agrees to cut morpine short aciting from 15mg 5 times a day to qid. Epidermoid cyst of skin 655979527 L72.0 [id number] Kleber Piper MD , [facility], [address] [place] [address] 06/13/2016 08:15:17 06/13/2016 08:45:43 Moderate depression 704404337 F32.1 in remission off meds - Chronic ob structive pulmonary disease 65995707 J44.9 not fully controlled with albuterol alone Screening for malignant neoplasm of colon 044715821 Z12.11 refuses colonosoco py Displaceme nt of lumbar intervertebral disc without myelopathy 31452069 M51.26 try norpramin- decrease MSIR to 15mg 3 1/2 tabs qd. told how dangerous morphine doses above 100mg a day is. we are slowly tapering her down. [id number] Kleber Piper MD , [facility] [address] [place] [address] 09/26/2016 08:21:59 09/28/2016 16:20:53 Chronic pain 75504697 R52 reduce total morphine equivalent from 240 to about 200mg a day- warned about withdrawal sx Chronic ob structive pulmonary disease 73655812 J44.9 not controlled - d/c combivent- substitute albuterol 2 puffs q4h and add spiriva [id number] Kleber Piper MD , [facility], [address] [place] [address] 11/15/2016 08:31:10 11/15/2016 13:44:42 Acute bronchitis 88409760 J20.9 with laryngitis rest, hot liquids,hu midify air, call if worse Chronic ob structive pulmonary disease 45910860 J44.9 continue same meds. [id number] Kleber Piper MD , [facility], [address] [place] [address] 12/24/2016 10:37:46 12/25/2016 13:15:37 Opioid dependence 66072004 F11.20 we are gong to taper her MS contin to 3omg tid from 60mg bid starting next month Chronic ob structive pulmonary disease 11737388 J44.9 add a LABA to the LAMA, cont albuterol Displaceme nt of lumbar intervertebral disc without myelopathy 09867462 M51.26 has fair and stable pain control nowreduce total morphine equivalent want to get donw to 100mg or less [id number] Kleber Piper MD , [facility] [address] [place] [address] 04/02/2017 09:15:06 04/02/2017 09:55:13 Chronic pain 05957514 R52 reduce oxycodone for 15mg qid to 10mg 5 times a day. ureged to cut to qid if can. Chronic ob structive pulmonary disease 98220307 J44.9 on stiolto and albuterol doing better. check to make sure not taking spiriva in addition. [id number] Kleber Piper MD , [facility], [address] [place] [address] 07/04/2017 09:17:19 07/04/2017 09:53:26 Chronic pain 96006056 R52 increase oxycodone for 15mg qid from 10mg 5 times a day. at same time will decrease MS contin to 30mg bid from tid. pt understand s goal is to get her under 100mg of morphine equivalent s Opioid dependence 231131 00 F11.20 Chronic ob structive pulmonary disease 35806769 J44.9 stable [id number] Kleber Piper MD , [facility], [address] [place] [address] 10/07/2017 08:19:31 10/07/2017 08:51:10 Opioid dependence 79511035 F11.20 Chronic ob structive pulmonary disease 99239328 J44.9 stable Chronic pain 38474711 R5 2 increase oxycodone for 15mg qid from 10mg 5 times a day. at same time will decrease MS contin to 30mg bid from tid. pt understand s goal is to get her under 100mg of morphine equivalent s- this new proram gets her down about 8mg a day morphine equivalent Gastroesop hageal reflux disease 802910473 K21.9 [id number] Vicky Bentley MD , [facility], [address] [place] [address] 01/09/2018 11:33:07 01/09/2018 12:52:18 Chronic pain 96372112 R52 Opioid dependence 190384 00 F11.20 will begin process of decreasing pain meds - will switch to 10 mg tabs and decrease by 5 mg with next refill and continue 5 mg every month Chronic ob structive pulmonary disease 48974731 J44.9 Chronic back pain 799797 002 M54.9 [id number] Vicky Bentley MD , [facility], [address] [place] [address] 04/21/2018 15:22:33 04/21/2018 16:19:21 Adult health examination 044056804 Z00.00 see Risk Assessment and Lifestyle Change Counseling section above Depression screening 171 378113 Z13.89 depression screening tool administer ed, entered into emr, scored and discussed, time greater than 7.5 minutes Screening mammography 24 164422 Z12.31 Chronic pain 45103136 R5 2 Chronic ob structive pulmonary disease 08469276 J44.9 Gastroesop hageal reflux disease 576365426 K21.9 Screening for malignant neoplasm of colon 618004209 Z12.11 Referral for a DIRECT booked colonoscop y. This patient is a healthy ASA Class 1 or 2 patient (only mild systemic disease), or a STABLE, well controlled insulin dependent diabetic. They do not have serious cardiac disease ie TX/angiopl asty within 1 year, symptomati c CHF; renal failure with CKD 4 or 5; take Coumadin, Plavix, Aggrenox, etc. Alcohol dependence 93913 003 F10.21 not presenlty drinking [id number] GRISELDA Cook , [facility] [address] [place] [address] 05/08/2018 11:13:09 05/09/2018 12:51:26 Chronic obstructive pulmonary disease 41772332 J44.9 Increased blood pressure 16251064 R03.0 Screening for malignant neoplasm of cervix 662924965 Z12.4 [id number] Vicky Bentley MD , [facility], [address] [place] [address] 06/30/2018 08:46:24 07/30/2018 14:35:21 Screening for malignant neoplasm of colon 732854069 Z12.11 Referral for a [employer] booked colonoscop y. This patient is a healthy ASA Class 1 or 2 patient (only mild systemic disease), or a STABLE, well controlled insulin dependent diabetic. They do not have serious cardiac disease ie TX/angiopl asty within 1 year, symptomati c CHF; renal failure with CKD 4 or 5; take Coumadin, Plavix, Aggrenox, etc. Plantar fasciitis 548635 003 M72.2 xray neg will take aleve and get arch supports and f/u Elevated blood-pressure reading without diagnosis of hypertension 411526715 R03.0 [id number] Vicky Bentley MD , [facility] [address] [place] [address] 07/28/2018 09:36:35 07/29/2018 16:23:25 Long-term drug therapy 565986100 Z79.899 Chronic ob structive pulmonary disease 88511492 J44.9 Major depr ession, melancholic type 614808696 F32.9 continue daily exercise Benign ess ential hypertension 7472971 I10 bp has been slowly increasing discussed med choices and will start lisinopril Plantar fasciitis 570712 003 M72.2 xray neg will take aleve and get arch supports and f/u [id number] Vicky Bentley MD , [facility] [address] [place] [address] 10/30/2018 10:55:54 10/30/2018 12:06:09 Chronic pain 11859515 R52 will continue present opioid with drop to 4 per day oxycodone Opioid dependence 245212 00 F11.20 Long-term drug therapy 490340780 Z79.899 Screening for malignant neoplasm of colon 385740299 Z12.11 Referral for a [employer] booked colonoscop y. This patient is a healthy ASA Class 1 or 2 patient (only mild systemic disease), or a STABLE, well controlled insulin dependent diabetic. They do not have serious cardiac disease ie TX/angiopl asty within 1 year, symptomati c CHF; renal failure with CKD 4 or 5; take Coumadin, Plavix, Aggrenox, etc. Chronic ob structive pulmonary disease 08263984 J44.9 stable on meds will continue [id number] Vicky Bentley MD , [facility] [address] [place] [address] 01/14/2019 13:33:47 01/15/2019 12:01:12 Chronic obstructive pulmonary disease 01209582 J44.9 stable on meds will continue Chronic pain 25279982 R5 2 will continue present opioid with drop to 4 per day oxycodone Opioid dependence 807015 00 F11.20 Benign ess ential hypertension 5626167 I10 bp has improved no chest pain or sob Gastroesop hageal reflux disease 152844867 K21.9 continue omeprazole Low back pain 784200803 M54.5 continue meds and walking Moderate depression 3104 74105 F32.1 continue meds [id number] Vicky Bentley MD , [facility] [address] [place] [address] 05/11/2019 15:17:58 05/11/2019 16:06:14 Chronic obstructive pulmonary disease 52733378 J44.9 stable on meds will continue Recurrent major depressive episodes 811988556 F33.9 presenltyu off medication s feels doing well Chronic pain 23018598 R5 2 will continue present opioid Adult heal th examination 277454905 Z00.00 see risk assessment and counseling section Depression screening 171 369390 Z13.89 depression screening tool administer ed, entered into emr, scored and discussed, time greater than 7.5 minutes Intrinsic asthma 3841425 08 J45.20 INTERMITTE NT Asthma- Based on history, physical assessment and peak flow the patients asthma is in control. Will continue the present medication s and follow-up in 6 months. The asthma action plan has been discussed. The patient verbalizes understand ing medication use.. The patient is in agreement with this plan. Counseling 764728521 Z71 .9 Benign ess ential hypertension 2528234 I10 bp has improved no chest pain or sob Mixed hyperlipidemia 267 409599 E78.2 doesnt want medicine but will consider and work on doet [id number] Vicky Bentley MD , [facility] [address] [place] [address] 10/02/2019 16:14:12 10/05/2019 14:18:03 Chronic pain 03842583 R52 will continue present opioid Long-term drug therapy 851396083 Z79.899 Benign ess ential hypertension 4206706 I10 bp has improved no chest pain or sob Chronic ob structive pulmonary disease 59937799 J44.9 stable on meds will continue Opioid dependence 144302 00 F11.20 Recurrent major depressive episodes 896491228 F33.9 presenltyu off medication s feels doing well [id number] Shruthi Foy NP , [facility] [address] [place] [address] 11/24/2019 11:19:00 12/02/2019 14:19:52 Pain of right ankle joint 8475894522 6796978 M25.571 POssible avulsion fx vs sprain. Advised RICE, alt with warm soaks and gentle stretches. Avoid weight bearing next few days as able. Send portal message with update 2-3d. We want to avoid xray if possible and advised pt that often these fractures are not casted anyway. Pt agrees with plan. [id number] Vicky Bentley MD , [facility] [address] [place] [address] 01/28/2020 15:58:28 02/10/2020 10:48:45 Gastroesophageal reflux disease 379331176 K21.9 continue omeprazole Chronic pain 06262910 R5 2 will continue present opioid Long-term drug therapy 498941639 Z79.899 Benign ess ential hypertension 3238724 I10 bp has improved no chest pain or sob Chronic ob structive pulmonary disease 25577028 J44.9 stable on meds will continue Opioid dependence 050395 00 F11.20 Recurrent major depressive episodes 584537734 F33.9 presenltyu off medication s feels doing well [id number] Vicky Bentley MD , [facility] [address] [place] [address] 05/12/2020 10:30:04 05/20/2020 15:45:10 Adult health examination 428421342 Z00.00 see risk assessment and lifestyle change section Depression screening 171 790976 Z13.89 depression screening tool administer ed, entered into emr, scored and discussed, time greater than 7.5 minutes Screening for alcohol abuse 973255355 Z13.39 Counseling 444275836 Z71 .89 including cardiovasc ular risk reduction counseling Asthma 979593541 J45.90 9 [id number] Vicky Bentley MD , [facility] [address] [place] [address] 10/24/2020 11:51:19 10/27/2020 16:26:22 Chronic pain 32776639 R52 will continue present opioid will need tox screen and f/u 3 months Screening mammography 24 132354 Z12.31 Benign ess ential hypertension 2347867 I10 bp has improved on lisinopril now at goal no chest pain or sob Chronic ob structive pulmonary disease 19881323 J44.9 stable on meds will continue [id number] Vicky Bentley MD , [facility] [address] [place] [address] 02/20/2021 11:48:24 03/06/2021 06:39:07 Opioid dependence 25784531 F11.90 for chronic back pain well controlled Recurrent major depressive episodes 824492633 F33.9 presenltyu off medication s feels doing well Chronic pain 51018450 R5 2 will continue present opioid will need tox screen and f/u 3 months Screening for osteoporosis 127598831 Z13.820 Benign ess ential hypertension 2638130 I10 bp has improved on lisinopril but has cough will switch to losartan [id number] Vicky Bentley MD , [facility] [address] [place] [address] 04/05/2021 14:17:05 04/05/2021 15:31:28 Chronic pain 39457680 R52 will continue present opioid will need tox screen and f/u 3 months Long-term current use of opiate analgesic drug 3826593269 98007 Z79.891 Active or passive immunization 962126234 Z23 Benign ess ential hypertension 3925306 I10 bp has improved on lisinopri and switched to losartan due to cough bp elevated will increase losartan [id number] Vicky Bentley MD , [facility] [address] [place] [address] 05/04/2021 11:02:05 05/19/2021 11:33:31 Essential hypertension 68988194 I10 bp elevate will inc amlodipine Chronic ob structive pulmonary disease 58625860 J44.9 stable on meds will continue [id number] Vicky Bentley MD , [facility] [address] [place] [address] 08/23/2021 15:03:06 09/01/2021 01:03:18 Mild persistent asthma 912192413 J45.30 (symptoms or bronchodil ator use more than two days per week) PERSISTENT {{Mild* Mo d Severe}} Based on history, physical assessment , and peak flow, the patient's asthma {{is is not*}} in control. See orders for adjustment in plan. The asthma action plan has been discussed. The patient verbalizes understand ing of medication use. The patient is in agreement with this plan.discu ssed use of aerochambe r and daily use of flovent -the difference betwen rescue inhaler and maintenace inhaler and the role of inflammati on Essential hypertension 48136647 I10 bpat goal on meds Mixed hyperlipidemia 267 482752 E78.2 Cholestero l is at goal Continue to work on diet and exercise as discussed Chronic pain 68716273 R5 2 will continue present opioid will need tox screen and f/u 3 months Long-term current use of opiate analgesic drug 8186199260 67256 Z79.891 Long-term drug therapy 820486081 Z79.899 Asthma 179982134 J45.90 9 Opioid dependence 718530 00 F11.20 for chronic back pain well controlled [id number] Vicky Bentley MD , [facility] [address] [place] [address] 11/23/2021 11:45:38 12/12/2021 10:41:46 Chronic pain 67482334 R52 will continue present opioid will need tox screen and f/u 3 months Long-term current use of opiate analgesic drug 0576741908 36704 Z79.891 Asthma 527857577 J45.90 9 stable has flovent Benign ess ential hypertension 2981068 I10 bp has improved on lisinopri and switched to losartan due to cough bp elevated will increase losartan Displaceme nt of lumbar intervertebral disc without myelopathy 53480076 M51.26 cause of chronic back pain Mixed hyperlipidemia 267 136297 E78.2 Cholestero l is at goal Continue to work on diet and exercise as discussed Long-term drug therapy 988925709 Z79.899 Essential hypertension 90674893 I10 bpat goal on meds [id number] Vicky Bentley MD , [facility] [address] [place] [address] 02/14/2022 16:18:12 02/15/2022 09:49:42 Chronic pain 05771010 R52 will continue present opioid will need tox screen and f/u 3 months Long-term current use of opiate analgesic drug 9684851725 08938 Z79.891 chronic back pain that has required chronic opioids to remain functional Essential hypertension 36382327 I10 bpat goal on meds Chronic ob structive pulmonary disease 74113559 J44.9 stable on meds will continue Mixed hyperlipidemia 267 027196 E78.2 Cholestero l is at goal Continue to work on diet and exercise as discussed Long-term current use of drug therapy 380253927 Z79.899 Constipation 89350211 K5 9.00 Opioid dependence 012234 00 F11.20 for chronic back pain well controlled [id number] Vicky Bentely MD , [facility] [address] [place] [address] 04/25/2022 15:46:45 05/03/2022 12:30:38 Adult health examination 986418733 Z00.00 see risk assessment and lifestyle change section Counseling 666582892 Z71 .9 including cardiovasc ular risk reduction counseling Depression screening 171 448677 Z13.31 depression screening tool administer ed, entered into emr, scored and discussed, time greater than 7.5 minutes Screening for alcohol abuse 148278226 Z13.39 Benign ess ential hypertension 2087277 I10 Mixed hyperlipidemia 267 903268 E78.2 Cholestero l is at goal Continue to work on diet and exercise as discussed Essential hypertension 22474179 I10 bpat goal on meds Hypertensi onBlood pressure is reasonable today.She will continue on amlodipine and hydrochlor othiazide, refills provided today. Osteoporosis 28294142 M8 1.0 Osteoporos isShe will continue on vitamin B12 and Kenneth vitamins for women daily.Enco uraged to exercise regularly. Prescripti on for 70 mg of alendronat e 1 tablet every week for 3 months was sent to [facility] in [place], [place]. Instructio ns on its usage were given. side effects and how tro take were discussed Asthma 876796015 J45.90 9 stable has flovent Chronic ob structive pulmonary disease 21461490 J44.9 stable on meds will continue COPDShe will continue on Spiriva and ProAir, refills provided today. Chronic pain 93215118 R5 2 will continue present opioid will need tox screen and f/u 3 months Chronic painShe will continue on long-actin g morphine and oxycodone. This note has been generated by Sanna SCHNEIDER and edited by Colby Hernandez, Quality Documentat ion Specialist . [id number] Vicky Bentley MD , [facility], [address] [place] [address] 05/31/2022 11:10:05 07/13/2022 07:27:52 Chronic obstructive pulmonary disease 80860360 J44.9 COPDShe will continue on Spiriva and ProAir, refills provided today. exacerbati on has improved Pneumonia 900718716 J18. 9 improved [id number] Vicky Bentley MD , [facility], [address] [place] [address] 06/28/2022 10:54:36 06/28/2022 11:56:03 Chronic obstructive pulmonary disease 22758729 J44.9 COPDShe will continue on Spiriva and ProAir, refills provided today. exacerbati on has improved Benign ess ential hypertension 8338767 I10 Displaceme nt of lumbar intervertebral disc without myelopathy 76553594 M51.26 chronic pain controlled with opioids stable dose and feels keeps her functional Gastroesop hageal reflux disease 148087422 K21.9 stable on omeprazole has tried to stop beofre will continue [id number] Thaddeus Jaquez MD , [facility], [address] [place] [address] 07/31/2022 16:45:25 07/31/2022 17:59:23 Acute exacerbation of chronic obstructive pulmonary disease 239830410 J44.1 start meds, call if not MUCH better in 1-2 days Cough 62287892 R05.9 [id number] Kady Esteves MD , [facility], [address] [place] [address] 08/03/2022 14:15:09 08/03/2022 14:38:31 Acute exacerbation of chronic obstructive pulmonary disease 545716122 J44.1 extend prednisone , taper slowlycont inue and finish abxcall if not improving [id number] Vicky Bentley MD , [facility], [address] [place] [address] 10/01/2022 10:56:26 10/01/2022 14:12:39 Long-term current use of drug therapy 702693653 Z79.899 Chronic ob structive pulmonary disease 68196183 J44.9 COPDShe will continue on Spiriva and ProAir, refills provided today. exacerbati on has improved [id number] Vicky Bentley MD , [facility], [address] [place] [address] 12/28/2022 07:55:47 12/29/2022 09:48:33 Opioid dependence 54618057 F11.20 for chronic back pain well controlled Long-term current use of drug therapy 471949058 Z79.899 Osteoporosis 39264845 M8 1.0 Osteoporos isShe will continue on vitamin B12 and Kenneth vitamins for women daily.Enco uraged to exercise regularly. Prescripti on for 70 mg of alendronat e 1 tablet every week for 3 months was sent to [facility] in [place], [place]. Instructio ns on its usage were given. side effects and how tro take were discussed Encouraged to continue alendronat e once a week. Benign ess ential hypertension 7766210 I10 Chronic as thmatic bronchitis 285231289 J44.9 Explained in detail regarding the etiology of chronic bronchitis and COPD and its associated risks, and treatment options and their benefits discussed. Encouraged to continue with budesonide twice a day and Spiriva daily.Enco uraged to use albuterol sparingly as it is a rescue medication .Encourage d to continue to walk daily.Lab slip will be provided to have labs drawn including kidney function test, potassium, and sodium. She will see me in 04/2023 for her annual physical. This note has been generated by Sanna SCHNEIDER and edited by Madeline Nation, Quality Documentat ion Specialist . [id number] Vicky Bentley MD , [facility], [address] [place] [address] 03/18/2023 15:51:40 03/18/2023 16:48:34 Mild intermittent asthma 178774396 J45.20 (symptoms or bronchodil ator use at most two days per week) Based on history, physical assessment , and ACT, the patient's asthma is in control. Will continue the present medication s and follow up in 6 months. The asthma action plan has been discussed. The patient verbalizes understand ing medication use.. The patient is in agreement with this plan. Active or passive immunization 078739323 Z23 Chronic ob structive pulmonary disease 14386445 J44.9 COPDShe will continue on Spiriva and ProAir, refills provided today. exacerbati on has improved Chronic obstructiv e lung diseaseEnc ouraged to use Spiriva and albuterol. Encouraged to use albuterol 3 to 4 times daily for a few days if she were to experience wheezing.P ros and cons of nebulizer were thoroughly discussed. Prescripti on for Combivent and nebulizer was sent to the pharmacy. Instructio ns on usage were given. Opioid dependence 032916 00 F11.20 for chronic back pain well controlled Benign ess ential hypertension 5070348 I10 Hypertensi onContinue with current medical management . Chronic pain 57477649 R5 2 will continue present opioid will need tox screen and f/u 3 months Chronic painShe will continue on long-actin g morphine and oxycodone. This note has been generated by Sanna SCHNEIDER and edited by Isaiah Trejo Documentat ion Specialist . Chronic painRisks associated with long-term use of ibuprofen were thoroughly discussed. Prescripti on for ibuprofen was sent to the pharmacy. Instructio ns on usage were given. This note has been generated by Sanna SCHNEIDER and edited by Isaiah Trejo Documentat ion Specialist . [id number] Vicky Bentley MD , [facility], [address] [place] [address] 05/31/2023 11:25:50 05/31/2023 17:18:50 Adult health examination 219120958 Z00.00 see risk assessment and lifestyle change section Depression screening 171 088376 Z13.31 depression screening tool administer ed Screening for alcohol abuse 772109988 Z13.39 Alcohol use screening tool administer ed Chronic pain 62763134 R5 2 will continue present opioid will need tox screen and f/u 3 months Chronic painShe will continue on long-actin g morphine and oxycodone. This note has been generated by Sanna SCHNEIDER and edited by Isaiah Trejo Documentat ion Specialist . Chronic painRisks associated with long-term use of ibuprofen were thoroughly discussed. Prescripti on for ibuprofen was sent to the pharmacy. Instructio ns on usage were given. This note has been generated by Sanna SCHNEIDER and edited by Isaiah Trejo Tri-Medicsat ion Specialist . Long-term current use of opiate analgesic drug 5625969798 66294 Z79.891 chronic back pain that has required chronic opioids to remain functional Counseled by member of primary health care team 164351883 Z71.9 Today we discussed ways to reduce your 10-year cardiovasc ular disease risk. Things that decrease risk for cardiovasc ular events include eating a diet high in fiber (fruits and vegetables ) and low in simple carbohydra mata (bread, rice, pasta, alcohol, potatoes), decreasing processed foods, limiting juice and alcohol, limiting saturated fats (butter, ice cream, and cheeses), and adding regular daily activity. Having blood pressure that is <130/80. Having well controlled cholestero l (LDL and triglyceri héctor) by eating a healthy diet and taking medication s when necessary. Managing daily stress with meditation or yoga. Depending on your other cardiovasc ular risks your practition er may recommend taking daily aspirin. Chronic ob structive pulmonary disease 88051595 J44.9 COPDShe will continue on Spiriva and ProAir, refills provided today. exacerbati on has improvedse e above Chronic obstructiv e lung diseaseEnc ouraged to use Spiriva and albuterol. Encouraged to use albuterol 3 to 4 times daily for a few days if she were to experience wheezing.P ros and cons of nebulizer were thoroughly discussed. Prescripti on for Combivent and nebulizer was sent to the pharmacy. Instructio ns on usage were given. [id number] Vicky Bentley MD , [facility], [address] [place] [address] 08/19/2023 09:09:05 08/19/2023 16:52:40 Screening mammography 38123131 Z12.31 Acute exac erbation of chronic obstructive pulmonary disease 052094688 J44.1 DyspneaExp lained in detail regarding the etiology of dyspnea along with its associated risks and discussed treatment options.En couraged to undergo a chest x-ray today.Pres cription for Wixela 1 puff twice a day was sent to the pharmacy.P rescriptio n for prednisone 3 tablets a day for 5 days was sent to the pharmacy.E ncouraged to use albuterol inhaler as needed.Enc ouraged to undergo a COVID-19 test if she has symptoms. This note has been generated by Sanna SCHNEIDER and edited by Marianela Irving, Quality Documentat ion Specialist . Pneumonia 323823241 J18. 9 [id number] Vicky Bentley MD , [facility], [address] [place] [address] 09/11/2023 10:12:54 09/11/2023 11:06:30 Long-term current use of drug therapy 191246265 Z79.899 Chronic ob structive pulmonary disease 13422760 J44.9 COPDShe will continue on Spiriva and ProAir, refills provided today. exacerbati on has improvedse e above Chronic obstructiv e lung diseaseEnc ouraged to use Spiriva and albuterol. Encouraged to use albuterol 3 to 4 times daily for a few days if she were to experience wheezing.P ros and cons of nebulizer were thoroughly discussed. Prescripti on for Combivent and nebulizer was sent to the pharmacy. Instructio ns on usage were given. Benign ess ential hypertension 3150585 I10 Hypertensi onContinue with current medical management . see above Chronic pain 98359084 R5 2 will continue present opioid will need tox screen and f/u 3 months Chronic painShe will continue on long-actin g morphine and oxycodone. This note has been generated by Sanna SCHNEIDER and edited by Colby Hernandez, Quality Documentat ion Specialist . Chronic painRisks associated with long-term use of ibuprofen were thoroughly discussed. Prescripti on for ibuprofen was sent to the pharmacy. Instructio ns on usage were given. see above [id number] Mariza Martin LPN , [facility], [address] [place] [address] 11/11/2023 08:15:02 11/11/2023 14:00:42 Chronic obstructive pulmonary disease 74607123 J44.9 Pt with COPD with 3 days of acutely worsening SOB and SALEH with hypoxia. Pt was place on 2 L NC and O2 sat went up to 95%. When was removed, dropped down to 90% again. When pt first presented, O2 sat was 77% after ambulation into office.Dis cussed pt needs ER evaluation and tx and transport called. Hypoxia 737581862 G47.34 [id number] ISHAAN Espinoza , [facility], [address] [place] [address] 11/18/2023 10:34:29 11/19/2023 13:23:46 Chronic obstructive pulmonary disease 71807001 J44.9 continue w/ O2, discussed may be able to wean over the next 1-2 mos, goal O2 in low 90swill establish with pulmonolog ywill give 3 addl days prednisone given inspirator y and expiratory wheezing heard on exam todayconti nue w/ home inhalers and nebs prnf/u with worsening sx Hypoxemia 687074406 R09. 02 O2 sat around 90-93% at home on 2L RA at rest, 4L with movement Benign ess ential hypertension 1796773 I10 BP above goal todaypt has MM visit w/ PCP in 1 mos, will discuss then [id number] Vicky Bentley MD , [facility], [address] [place] [address] 12/16/2023 10:52:28 12/17/2023 12:22:58 Long-term current use of drug therapy 266117092 Z79.899 Osteoporosis 60551909 M8 1.0 Osteoporanthony Pritchard will continue on vitamin B12 and Kenneth vitamins for women daily.Enco uraged to exercise regularly. Prescripti on for 70 mg of alendronat e 1 tablet every week for 3 months was sent to [facility] in [place], [place]. Instructio ns on its usage were given. side effects and how tro take were discussed Encouraged to continue alendronat e once a week. Osteoporanthony Macario prescripti on refill for her osteoporos is medication has been provided. This note has been generated by Sanna SCHNEIDER and edited by Marianela Irving, Quality Documentat ion Specialist . Chronic ob structive pulmonary disease 07067260 J44.9 COPDShe will continue on Spiriva and ProAir, refills provided today. exacerbati on has improvedse e above Chronic obstructiv e lung diseaseEnc ouraged to use Spiriva and albuterol. Encouraged to use albuterol 3 to 4 times daily for a few days if she were to experience wheezing.P ros and cons of nebulizer were thoroughly discussed. Prescripti on for Combivent and nebulizer was sent to the pharmacy. Instructio ns on usage were given. [id number] Vicky Bentley MD , [facility], [address] [place] [address] 04/09/2024 10:40:58 04/15/2024 11:14:01 Chronic pain 67222803 R52 will continue present opioid will need tox screen and f/u 3 months Chronic painShe will continue on long-actin g morphine and oxycodone. This note has been generated by Sanna SCHNEIDER and edited by Colby Hernandez, Quality Documentat ion Specialist . Chronic painRisks associated with long-term use of ibuprofen were thoroughly discussed. Prescripti on for ibuprofen was sent to the pharmacy. Instructio ns on usage were given. see above Long-term current use of opiate analgesic drug 9934191887 43833 Z79.891 chronic back pain that has required chronic opioids to remain functional Long-term current use of drug therapy 657780112 Z79.899 Chronic ob structive pulmonary disease 27004898 J44.9 continue w/ O2, discussed may be able to wean over the next 1-2 mos, goal O2 in low 90swill establish with pulmonolog ywill give 3 addl days prednisone given inspirator y and expiratory wheezing heard on exam todayconti nue w/ home inhalers and nebs prnf/u with worsening sx Hypoxemia 068006024 R09. 02 O2 sat around 95 on ra has discontiju ed oxygen Benign ess ential hypertension 8541525 I10 BP at goal Osteoporosis 89051314 M8 1.0 Osteoporos isShe will continue on vitamin B12 and Kenneth vitamins for women daily.Enco uraged to exercise regularly. Prescripti on for 70 mg of alendronat e 1 tablet every week for 3 months was sent to [facility] in [place], [place]. Instructio ns on its usage were given. side effects and how tro take were discussed Encouraged to continue alendronat e once a week. Osteoporos iscontinue alendronat e tolerating well This note has been generated by Sanna SCHNEIDER and edited by Marianela Irving, Quality Documentat ion Specialist . [id number] Vicky Bentley MD , [facility], [address] [place] [address] 06/05/2024 11:18:08 06/09/2024 19:21:43 Adult health examination 959304396 Z00.00 see risk assessment and lifestyle change section Depression screening 171 875345 Z13.31 depression screening tool administer ed Screening for alcohol abuse 318754287 Z13.39 Alcohol use screening tool administer ed Screening for malignant neoplasm of colon 763027842 Z12.11 Referral for a DIRECT booked colonoscop y. This patient is a healthy ASA Class 1 or 2 patient (only mild systemic disease), or a STABLE, well controlled insulin dependent diabetic. They do not have serious cardiac disease ie TX/angiopl asty within 1 year, symptomati c CHF; renal failure with CKD 4 or 5; take Coumadin, Plavix, Aggrenox, etc. Asthma 986856273 J45.90 9 stable has flovent Benign ess ential hypertension 3472897 I10 BP at goal Chronic ob structive pulmonary disease 06318725 J44.9 continue w/ O2, discussed may be able to wean over the next 1-2 mos, goal O2 in low 90swill establish with pulmonolog ywill give 3 addl days prednisone given inspirator y and expiratory wheezing heard on exam todayconti nue w/ home inhalers and nebs prnf/u with worsening sx Chronic pain 16415987 R5 2 will continue present opioid will need tox screen and f/u 3 months Chronic painShe will continue on long-actin g morphine and oxycodone. This note has been generated by Sanna SCHNEIDER and edited by Colby Hernandez, Quality Documentat ion Specialist . Chronic painRisks associated with long-term use of ibuprofen were thoroughly discussed. Prescripti on for ibuprofen was sent to the pharmacy. Instructio ns on usage were given. see above Opioid dependence 475120 00 F11.20 for chronic back pain well controlled Counseled by member of primary health care team 863681098 Z71.9 Today we discussed ways to reduce your 10-year cardiovasc ular disease risk. Things that decrease risk for cardiovasc ular events include eating a diet high in fiber (fruits and vegetables ) and low in simple carbohydra mata (bread, rice, pasta, alcohol, potatoes), decreasing processed foods, limiting juice and alcohol, limiting saturated fats (butter, ice cream, and cheeses), and adding regular daily activity. Having blood pressure that is <130/80. Having well controlled cholestero l (LDL and triglyceri héctor) by eating a healthy diet and taking medication s when necessary. Managing daily stress with meditation or yoga. Depending on your other cardiovasc ular risks your practition er may recommend taking daily aspirin. [id number] DO JONNY SILVESTRE, [facility], [address] [place] [address] 07/14/2024 13:48:47 07/16/2024 09:03:17 Chronic obstructive pulmonary disease 94093708 J44.9 Chronic Obstructiv e Pulmonary Disease (COPD)Rece [...] by Organization Details LastModified Time None Recorded Advance Directives Directive Y: spouse Payers Encounter Date Sequence Insurance Name Policy Number Policy Boyd Covered Member ID Boyd Member ID Guarantor Name 11/18/2023 2 ( - INDEMNITY) Bernie Gunteranides [id number] Bernie Gunteranides 11/18/2023 1 [place]IC[place] [facility] Bernie Sendes [id number] Bernie Rico Joanides 12/16/2023 2 ( - INDEMNITY) Bernie Rico Joanides [id number] Bernie Rico Joanides 12/16/2023 [place] [facility] Bernie Sendes [id number] Bernie Rico Joanides 04/09/2024 2 ( - INDEMNITY) Bernie Rico Joanides [id number] Bernie Rico Joanides 04/09/2024 [place] [facility] Bernie Rico Sendes [id number] Bernie Rico Joanides 06/05/2024 2 ( - INDEMNITY) Bernie Rico Joanides [id number] Bernie Rico Joanides 06/05/2024 [place] [facility] Bernie Sendes [id number] Bernie Rico Joanides 07/14/2024 2 ( - INDEMNITY) Bernie Rico Joanides [id number] Bernie Rico Joanides 07/14/2024 1 [place] [employer] Bernie Sendes [id number] Bernie Oh Notes Date Note Type Note Provider Name and Address Organization Details Recorded Time 4 text/html PT w/ pmhx sig for COPD, HTN, asthma, HLD, GERD, depression, opioid dependence presenting for inpatient f/u appt. here w/ Jessie Pt was admitted to [facility] 11/11/23 - 11/15/23 for hypoxemia 2/2 influenza.was not previously on oxygen but discharged on 2L at rest, 4L with activity.was given IV steroid, tamiflu, azithromycin, bronchodilator nebsdischarged w/ 3 days of pred 40mg, took last dose this amhas been checking O2 at home, sats running in low 90s does not have pulmonologiststates COPD has been getting worse in the past 3-4 years, usually has 1 flare per year, was hoapitalized for pneumonia couple years ago but wasnt discharged on O2 that time Dx influenza. Oxygen prescribed through [facility]. ? Nurse Quality referral. Records requested. using albuterol once in amspiriva respimat 1 puff BIDwixela BIDnebulizer has done twice over the weekend she and her love cruises, go about once per monthballroom dancewalk 5 miles every morning at the mall Karly Sonia, [address], [address], [facility] 11/18/2023 12:10:58 4 text/html MM History of present illness:The patient is a 68-year-old female who presents for medical management. She is accompanied by an adult male.The patient returned home from a cruise on 12/08/2023 and began experiencing mild respiratory distress on 12/09/2023, which escalated in severity by Saturday night, rendering her unable to ascend two steps without experiencing dyspnea. She sought medical attention on Saturday morning and was subsequently admitted to the hospital for a five-day hospitalization for influenza, which necessitated extensive blood work. Her treatment regimen included oxygen therapy, steroids, Tamiflu, and breathing treatments. Currently, she is back to her baseline health status, managing her condition with albuterol, Spiriva, and Wixela. The accompanying adult male reports that she managed to ambulate five miles this morning, including escalators, and reduced nocturnal oxygen use. Prior to this, she was not on oxygen. Her home oxygen saturation levels have been consistently around 93 at rest and 93 with walking, averaging between 85 and 93 within two to three minutes. She monitors her oxygen levels three to four times daily. During her hospital stay, her blood pressure significantly elevated, reaching up to 210 mmHg. She has a scheduled appointment with her voucher examiner on 12/18/2023. Her voucher examiner has prescribed a longer course of prednisone, with instructions to take four tablets for five days, three tablets for five days, two tablets for five days, and one tablet for the next five days. An x-ray of her lungs is scheduled for 12/18/2023. She has a history of pneumonia in 07/2023. Approximately a year and a half ago, she was hospitalized for COVID-19 and pneumonia, but her current infection was more severe than her previous COVID-19 infection.She has swelling in her ankles. She quit drinking diet soda. She denies any abdominal pain. Her bowel movements and urination are normal. She eats a lot of vegetables and fish. She needs a prescription for her osteoporosis pill. She has been on it for about 2 to 3 months now. She takes it every Saturday.The patient's blood pressure, height, and weight are within the normal range.Mammogram was normal. Vicky Bentley MD [address] [place] [address], [phone], [facility] 12/18/2023 20:35:59 4 text/html MMThe patient is a 68-year-old female who presents for regular follow-up. She is accompanied by an adult male.She experienced an exacerbation of her Chronic Obstructive Pulmonary Disease (COPD) during the last winter, which required the use of supplemental oxygen. Since January 2024, she has been off supplemental oxygen and reports satisfactory breathing. She experiences occasional shortness of breath during physical activities but denies any chest pain. Her abdominal and bowel functions are normal. She is making efforts to lose weight and has consulted with a voucher examiner. Her diet includes minimal consumption of bread and pasta. She uses her inhalers daily, including Spiriva twice daily, a steroid twice daily, and a nebulizer once daily in the morning. She also takes Wixela and ProAir as needed. Her oxygen saturation today is 96 percent.She is on amlodipine and hydrochlorothiazide for her blood pressure, and requires a prescription for a diuretic.chronic pain manged with opiodis have been stabkle and helps pt be functional and pursue daily walkingSupplemental InformationShe needs a prescription for osteoporosis pill, which she takes every Saturday. She has no trouble taking that. Vicky Bentley MD [address] [place] [address], [phone], [facility] 04/09/2024 12:22:52 4 text/html Physical Exam/FemaleReported bypatient.PHAPatient is here for a Wellness Visit. She describes her health status as good. Patient's health is the same as last year.Risk Assessment and Lifestyle Change Counseling (Medicare)Reported bypatient.Coronary Artery Disease Risk Assessment:Family History of Coronary Artery Disease Breast Cancer Risk Assessment:No family history of breast cancer Colon Cancer Risk Assessment:Family history of pre cancerous colon polyps or colon cancer Lung Cancer Risk Assessment:Has used cigarettes less than 30 pack years;Patient has higher than average risk for lung cancer Fracture Risk Assessment:Has adequate calcium intake; Taking Vitamin D supplement Functional Status:Patient does not have trouble hearing the television or radio when others do not.; Patient does not have to strain or struggle to hear/understand conversations; Patient does not have visual loss that interferes with daily activities; Does not live alone; Patient was not unsteady and did not take longer than 30 seconds during the timed get up and go test. Diet:Discussed the value of a Mediterranean diet , and eating more fruits and vegetables Exercise counseling:Discussed the importance of daily physical activityVMG AsthmaReported bypatient.Severity/Inten sity/Frequency of Symptoms:Moderate persistent asthma with daily symptoms History of Present IllnessThe patient, with a history of asthma, hypertension, chronic back pain, gastroesophageal reflux disease, and hypercholesterolemia, presents for a wellness visit. She reports no new allergies and no changes in her medical conditions. She is currently on alendronate for osteoporosis, amlodipine and hydrochlorothiazide for hypertension, and morphine and oxycodone for chronic pain. She also uses a nebulizer solution as needed, along with ProAir, Spiriva, and Wixela for asthma management. The patient has been adherent to her alendronate regimen, which she has been on for approximately two years. She also reports no changes in her blood pressure medications or asthma management. She has Narcan at home as a precaution due to her opioid use, but has not needed to use it. The patient received her COVID-19 vaccine last year and is due for another dose this fall. She also received her flu vaccine for the current season. She has received the original pneumonia vaccine and is due for the updated PC-20 vaccine. The patient's blood pressure is well-controlled, and her cholesterol levels are satisfactory. She has gained a small amount of weight, which she attributes to dietary habits. She reports a fasting blood sugar of 105, slightly above the normal range, but not indicative of diabetes. She has a family history of diabetes and is mindful of her carbohydrate intake to manage her blood sugar levels. The patient had a mammogram in December and is due for another one next year. She had a colonoscopy in 2018 due to a family history of colon cancer and is due for another one this year. The patient is physically active, engaging in regular walking and dancing. She is mindful of her diet, focusing on vegetables and fruits, and limiting her intake of carbohydrates. She reports no new symptoms or changes in her health since her last visit. 05/31/23 67 y/o F here for wellness visit. From 2021:Pt main concern is her px medication, other than that she is doing fine. Her inhalers are managing her asthma well Last dose; 15mg morphine this AM, not sure exact time....10mg Morphine 2 o'clockhad tapered down some and now stablefeels functioning wellhx of copd stablechronic gerd stable on meds chronic pain has decreased opioids but would like to continue same dose for now as had increased pain with last reductiionTime for intake: {{1 2 3 4 5 6 7 8 9 10 1 1 12 13 14 15 16 17 18 1 9 20 21 22 23 24 25}} minutes. History of present illness:The patient is a 66-year-old female who presents today for a wellness visit. She states she is doing well. At the last office visit in 01/2022; she had COPD, chronic pain, blood pressure was normal, and cholesterol was at goal.Her blood pressure today is reasonable.She has a history of hypertension and is on amlodipine and hydrochlorothiazide.She is on long-acting morphine and oxycodone for pain control.She has a history of COPD and is on Spiriva and ProAir.She is up-to-date on COVID-19, tetanus, and pneumonia vaccines. She has not received shingles vaccine.Bone density scan done last year revealed mild osteoporosis. She states she is on vitamin B12 and Kenneth vitamins for women daily. discussed calcium and vit dShe admits to wearing dentures since the age of 51.She states she underwent mammogram in 12/2020.She denies any family history of breast cancer.She states she had swollen ankles in the past and that she was eating cottage cheese 2 to 3 times a day, which contained high sodium.She states her breathing is normal, chest feels good, abdomen is normal. She denies any blood in her stool or urine, and no vaginal bleeding.Her vision and hearing is normal.She states she underwent colon cancer screening in 01/2021 which was unremarkable and was advised to have repeat colon cancer screening every 3 years.She states she gets her eyes examined every couple of years.She states she used to smoke 2 packs of cigarettes, but quit 16 years ago. History of present illness:Bernie Oh is a 67-year-old female, who presents today for wellness visit. She is accompanied by an adult male.The patient has a history of chronic pain, hypertension, COPD, back issues with discs, GERD, and elevated cholesterol.She was prescribed alendronate in 04/2022 for osteoporosis and she is taking it.She is on amlodipine and hydrochlorothiazide for hypertension.She is on morphine ER twice a day and oxycodone 10 mg 4 times a day.She is on ProAir and Spiriva for her lungs. She uses a nebulizer for her lungs. She started using the nebulizer for 1-1/2 to 2 weeks and it was okay, but then she started coughing and hacking up a lot of mucus and phlegm buildup. She stopped using the nebulizer for a while, which improved the coughing. She was taking half a tablet prednisone 10 mg every morning for a few days. She was using the nebulizer religiously every morning and night, but after a couple of weeks, it started getting worse. She tried Trelegy, which was not beneficial.The adult male states that her breathing is normal.His blood pressure is normal. Her blood sugar, kidney tests, and potassium levels were normal.She walks 5 miles every morning. When she first started walking, she had breathing issues which now have improved.She had bone density test and mammogram 2 years ago.Her colon cancer screening in 2020, which was normal. She is on a 10-year plan.She will take COVID-19 and influenza vaccine after coming back from their trip.She has a history of COVID-19 infection. Vicky Bentley MD [address] [place] [address], [phone], [facility] 06/06/2024 19:43:27 4 text/html 07/14/24- Pt here today for a TCMS visitinpatient f/u COPD [...] since she stopped drinking diet Pepsi. KLEBER ALCANTAR DO [address] [place], [phone], [facility] 07/16/2024 08:15:23 OBGyn Episode No OBEpisode recorded.
== END 2024-09-18 10:13 | disposition home or self-care (01) ==
PROVIDERS: PCP Family Medicine; Visit Provider Nurse Practitioner Family
DX: J44.1 Chronic obstructive pulmonary disease with (acute) exacerbation (principal); R91.1 Solitary pulmonary nodule; Z87.09 Personal history of other diseases of the respiratory system
CPT/HCPCS: 99214

== ENCOUNTER → 2024-09-18 09:35 | Outpatient (BNVA) | payer MEDICARE, OTHER, SELFPAY | PROVIDERS: PCP Family Medicine; Visit Provider Nurse Practitioner Family | DX: J44.1 Chronic obstructive pulmonary disease with (acute) exacerbation (principal); R91.1 Solitary pulmonary nodule; Z87.09 Personal history of other diseases of the respiratory system | CPT/HCPCS: 99212 ==

== ENCOUNTER 2024-10-30 09:54 | Outpatient (AMB) | payer MEDICARE, OTHER, SELFPAY ==
--- NOTE | 2024-10-30 09:44 | A.OFFVIS_ITS ---
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 Ladle Repairman: Ladle Repairman offered & declined Accompanied by: Spouse Allergies No Known Allergies Allergy (Verified 10/30/24 10:01) Medication List - Last Reconciled 10/30/24 by Nany Jones LPN albuterol sulfate 90 mcg/actuation 2 puffs inhalation Q4H PRN alendronate 70 mg PO MO amlodipine 10 mg PO DAILY mlvnxvficy-rynbrkry-bnberctnix 160-9-4.8 mcg/actuation (Breztri Aerosphere) 2 inhalations inhalation BID docusate sodium 100 mg PO DAILY hydrochlorothiazide 12.5 mg PO DAILY ibuprofen 800 mg PO TID PRN ipratropium-albuterol 0.5 mg-3 mg(2.5 mg base)/3 mL 3 mL inhalation QID PRN morphine ER 15 mg PO BID multivitamin 1 tab PO DAILY naloxone 0.4 mg subcut Q3M PRN oxycodone 10 mg PO QID PRN roflumilast (Daliresp) 500 mcg PO DAILY HPI HPI COPD: Details: Bernie is a pleasant 69 year old female, former smoker with 30 pack year history, quit 18 yrs ago, with underlying severe COPD on supplemental oxygen 3L with exertion, asthma and h/o acute respiratory failure with hypoxemia 11/2023 and 06/2024. At the last visit she was switched from Wixela and Spiriva to Breztri.Daliresp was also increased from 250 mcg to 500 mcg, which she has tolerated well. She reports significant improvements in overall dyspnea and denies cough. She does report intermittent wheezing using albuterol MDI with good relief. She notes earlier in the week increased use of albuterol due to wheezing thought to be related to the cold weather. She continues to be active walking 3-4 miles per day using 3L of supplemental oxygen with exertion and using 2L NOC. She has been checking oxygen saturation frequently, noting >92%. She denies any visits to urgent care or hospitalizations related to respiratory distress since the last visit. Today she presents to review overnight oximetry results and response to medication changes. [facility] Medical History COPD (chronic obstructive pulmonary disease) Opioid dependence Chronic low back pain Pulmonary nodule Social History Household Members: Spouse Housing: House Do you presently have visiting nurse or other home services: No Patient Tobacco Use Status: Former Tobacco user Tobacco use type: Cigarette Cigarette Packs Per Day: 1 Years Smoked: 30 service: No Current occupational status: retired Review of Systems Const Denies chills, Denies excessive sweating, Denies fever(s), Denies headache(s) and Denies night sweats Eyes Denies dry eyes, Denies irritation and Denies itchy eyes ENT Reports Normal hearing present, Denies headache(s), Denies nasal congestion, Denies nasal discharge, Denies post nasal drip and Denies sore throat Card Denies chest pain, Denies chest pain at rest, Denies chest pain with activity, Denies claudication, Denies leg edema, Reports dyspnea on exertion, Denies orthopnea and Denies paroxysmal nocturnal dyspnea Resp Denies chest congestion, Denies cough, Denies hemoptysis, Denies pain on inspiration, Denies pain with cough, Reports dyspnea on exertion, Denies stridor and Reports wheezing Musc Denies myalgias Neuro Reports Normal hearing present and Denies headache(s) Endo Denies excessive sweating Miguel/Lymph Denies lymphadenopathy Aller/Immun Denies itchy eyes, Denies seasonal rhinorrhea and Reports wheezing Physical Exam Vital Signs: Last Vital Signs Pulse 98 10/30/24 09:56 Pulse Ox 96 10/30/24 09:56 Oxygen Delivery Method Nasal Cannula 10/30/24 09:56 Oxygen Flow Rate 2 10/30/24 09:56 BMI result Body Mass Index 26.4 Const General: cooperative, no acute distress, well developed and alert Orientation/consciousness: patient oriented x3 Limitations: no limitations HEENT Head: Yes normal to inspection, Yes normocephalic and Yes atraumatic Ears: hearing grossly normal bilaterally and external ears normal Eyes General: appearance normal, both eyes and all related structures Eyelids: Yes eyelids normal Sclerae: sclerae normal EOM: EOMs intact bilaterally Neck Neck: Yes normal visual inspection and Yes no lymphadenopathy Lymphatic: no lymphadenopathy noted Chest Chest palpation & inspection: normal inspection of the chest Resp Effort & Inspection: normal respiratory effort, able to speak in complete sentences, no stridor, not tachypneic, no tripod positioning and no use of accessory muscles Auscultation: wheezes and diminished lung sounds Cardio Jugular venous distension: no JVD Rate: regular rate Rhythm: regular rhythm Skin Other: warm, dry General skin exam: no rashes or lesions noted Neuro General: patient oriented x3 Cranial nerves: Yes Normal hearing present Cognition (Neuro): normal cognition Gait exam (Neuro): Normal gait present Extrem General: Yes normal to inspection, Yes capillary refill normal, Yes no clubbing, cyanosis or edema and Yes no pedal edema Psych Appearance: grossly normal and well kempt Speech and movement: Normal speech and movement present and Clear speech present Affect: normal affect Attitude: cooperative Thought process: Normal thought process present Thought content: Normal thought content present Insight: Good insight present (Psych) Judgement: Good judgement present (Psych) Assessment & Plan Assessment & Plan (1) COPD (chronic obstructive pulmonary disease): Code(s): J44.9 - Chronic obstructive pulmonary disease, unspecified Category: Medical Qualifiers: COPD type: COPD with acute exacerbation Qualified Code(s): J44.1 - Chronic obstructive pulmonary disease with (acute) exacerbation (2) Pulmonary nodule: Code(s): R91.1 - Solitary pulmonary nodule Category: Medical (3) History of acute respiratory failure: Code(s): Z87.09 - Personal history of other diseases of the respiratory system Category: Medical Plan Bernie reports good control of respiratory symptoms since switching to Breztri and increasing Daliresp, advised to continue. At this time patient with acute exacerbation, will treat with prednisone. Will also send acapella valve to improve mucous clearance. Reviewed overnight oximetry which revealed Oxygen saturation <88% for 11 minutes and 89% for 26 minutes on 2 L supplemental oxygen, advised to increase to 2.[address] revealed multiple pulmonary nodules, <2mm and has a repeat chest CT scheduled in December to assess stability. All questions were answered and patient is in agreement of plan. Will follow-up to review chest CT results or sooner if needed. Medications: New fluticasone propionate 50 mcg/actuation (Flonase Allergy Relief) administer into each nostril 2 sprays intranasal BEDTIME 16 grams 3RF prednisone 40 mg (2 x 20 mg) PO DAILY 10 tabs 0RF Coding Level of Care Code Est Pt Level 4 (94200) Diagnoses Chronic obstructive pulmonary disease with acute exacerbation J44.1 COPD type: COPD with acute exacerbation Pulmonary nodule R91.1 History of acute respiratory failure Z87.09
[2024-10-30 09:56] VITALS: PULSE 98; O2SAT 96; BMI 26.4
--- OUTSIDE RECORDS SUMMARY | 2024-10-30 10:53 | XMS_ITS | Data Portability ---
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 Name Role Phone VICKY BENTLEY Primary Care Provider NEIL BIANCHI Boiler Washer NEIL JUDGE Boiler Washer [facility] PULMON[facility] E Commerce Strategist Assessment Encounter Date Assessment Date Assessment LastModified [...] Not available Lab drug screen, urine - oxycodone & morphine Date and Time of Last Dose: 04/09/24 7:30 AM & 04/09/24 1am temp: 94F 2023 024 [facility], [address] [place] [address], [address], 04/10/2024 10:40:39 drug screen, urine - Oxycodone 6 am & Morphine 12 am 12/16/23 No Temp Recorded 2023 024 [facility], [address] [place] [address], [address], 12/17/2023 10:06:00 Referral pulmonolo gist referral - Pt w/ worsening COPD, recently had influenza and discharge d on home O2, needs to establish with pulmonolo gy 2023 024 MUKESH Tong, [address] [place] [address] [place], [address], 06/23/2024 12:19:18 Procedures colonosco py procedure (PROC) [address] [facility], [address] [place] [address], [address], 06/09/2024 12:38:43 Surgeries None recorded. Imaging None recorded. Medication Orders alendrona te 70 mg tablet 2023 024 MUKESH [facility], [address] [facility], [address], [id number], 04/09/2024 12:23:10 hydrochlo rothiazid e 12.5 mg tablet 2023 024 [facility], [address] [place] [address], [facility] 2, [place], [place], [id number], 04/09/2024 12:23:11 Narcan 4 mg/actuat ion nasal spray 2023 024 MUKESH [facility] Zptf-Df-Bd[facility], [address] [place] [address], [facility], [place], [place], [phone], 04/09/2024 12:23:15 alendrona te 70 mg tablet 2023 024 [place] [facility] Tnjn-Pt-Futu [facility], [address] [place] [address] 2, [place], [place], [phone], 12/16/2023 12:51:39 prednison e 20 mg tablet 2023 024 [id number], [address] [place], [place], [phone], 12/16/2023 11:58:53 Patient TargetsNo targets recorded. Patient Instructions Encounter Date Encounter Id Patient Instructions Last Modified By Organization Details Last Modified Time 04/09/2024 [id number] My Health To Do List Specific Analgesia [...] and understands the properties of narcotic medication. [email or web address] Not available 04/09/2024 11:06:03 06/05/2024 [id number] high blood pressure: care instructions [email or web address] Not available 06/06/2024 19:43:22 learning about high blood pressure sesrick Not available 06/06/2024 19:43:22 07/14/2024 [id number] I am aware of e inpatient facility discharge medications, the medication list above has been reconciled with those medications and reflects my understanding of an up to date medication list for this patient. [email or web address] Not available 07/14/2024 14:30:48 Reason for Referral E Commerce Strategist Referral for C hronic obstructive pulmonary disease [...] GC/MS amphetamine NEG. negati ve Not Available [address], [address], 12/17/2023 10:06:00 12/16/19 24 12/17/2023 DRUG SCREE N-8, URINE , WITH CONFI RMATI ON GC/MS barbiturates NEG. negati ve Not Available [address], [address], 12/17/2023 10:06:00 12/16/19 24 12/17/2023 DRUG SCREE N-8, URINE , WITH CONFI RMATI ON GC/MS benzodiazepi ne NEG. negati ve Not Available [address], [address], 12/17/2023 10:06:00 12/16/19 24 12/17/2023 DRUG SCREE N-8, URINE , WITH CONFI RMATI ON GC/MS cocaine NEG. negati ve Not Available [address], [address], 12/17/2023 10:06:00 12/16/19 24 12/17/2023 DRUG SCREE N-8, URINE , WITH CONFI RMATI ON GC/MS opiates POS. negati ve GCMS= Sampl e sent to [facility] confi rmati on by GC/MS . Not Available [address], [address], 12/17/2023 10:06:00 12/16/19 24 12/17/2023 DRUG SCREE N-8, URINE , WITH CONFI RMATI ON GC/MS methadone NEG. negati ve Not Available [address], [address], 12/17/2023 10:06:00 12/16/19 24 12/17/2023 DRUG SCREE N-8, URINE , WITH CONFI RMATI ON GC/MS fentanyl NEG. negati ve Syva EMIT II Limit s of Detec tion (cutt -off value s) Jessi Expan d: Amphe tamin es: 1000 ng/ml Opiat es: 300 ng/ml Rica tuate s: 200 ng/ml Oxyco done 100 ng/ml Benzo diaze pines : 200 ng/ml Metha done 300 ng/ml Cocai ne: 300 ng/ml Fenta nyl 1 ng/ml Not Available [address], [address], 12/17/2023 10:06:00 12/16/19 24 12/17/2023 DRUG SCREE N-8, URINE , WITH CONFI RMATI ON GC/MS oxycodone POS. negati ve GCMS= Sampl e sent to [facility] for [facility] on by GC/MS . Not Available [address], [place], [address], 12/17/2023 10:06:00 12/16/19 24 12/22/2023 DRUG TOX MONIT ORING OPIAT ES EXPAN DED QN, U codeine NEGATI VE NG/mL <50 See Note 1 Not Available [facility] [address], [address], 12/22/2023 11:07:59 12/16/19 24 12/22/2023 DRUG TOX MONIT ORING OPIAT ES EXPAN DED QN, U hydrocodone NEGATI VE NG/mL <50 See Note 1 Not Available [facility] [address], [address], 12/22/2023 11:07:59 12/16/19 24 12/22/2023 DRUG TOX MONIT ORING OPIAT ES EXPAN DED QN, U hydromorphon e NEGATI VE NG/mL <50 See Note 1 Not Available [facility] [address], [place], [address], 12/22/2023 11:07:59 12/16/19 24 12/22/2023 DRUG TOX MONIT ORING OPIAT ES EXPAN DED QN, U morphine 4506 NG/mL <50 high See Note 1 Not Available [facility] [address], [address], 12/22/2023 11:07:59 12/16/19 24 12/22/2023 DRUG TOX MONIT ORING OPIAT ES EXPAN DED QN, U norhydrocodo ne NEGATI VE NG/mL <50 See Note 1 Not Available [facility] [address], [address], 12/22/2023 11:07:59 12/16/19 24 12/22/2023 DRUG TOX MONIT ORING OPIAT ES EXPAN DED QN, U noroxycodone 1671 NG/mL <50 high See Note 1 Not Available [facility] [address], [place], [address], 12/22/2023 11:07:59 12/16/19 24 12/22/2023 DRUG TOX MONIT ORING OPIAT ES EXPAN DED QN, U oxycodone 1775 NG/mL <50 high See Note 1 Not Available [facility] [address], [place], [address], 12/22/2023 11:07:59 12/16/19 24 12/22/2023 DRUG TOX MONIT ORING OPIAT ES EXPAN DED QN, U oxymorphone 2246 NG/mL <50 high See Note 1 Not Available [facility] [address], [place], [address], 12/22/2023 11:07:59 12/16/19 24 12/22/2023 DRUG TOX [...] alist : [phone] X TOX ( [phone] ), M-F, 8am-6 pm EST. Not Available [facility] [address] [place] [address] B, [place], [address], 12/22/2023 11:07:59 03/19/20 24 03/23/2024 BASIC METAB OLIC PANEL glucose 105 mg/dL 70-100 high Not Available [address], [address], 03/23/2024 12:11:20 03/19/20 24 03/23/2024 BASIC METAB OLIC PANEL BUN 20 mg/dL 7-18 high Not Available [address], [address], 03/23/2024 12:11:20 03/19/20 24 03/23/2024 BASIC METAB OLIC PANEL creatinine 0.8 mg/dL 0.8-1. 3 Not Available [address], [address], 03/23/2024 12:11:20 03/19/20 24 03/23/2024 BASIC METAB OLIC PANEL B/C 25.0 ratio Not Available [address], [address], 03/23/2024 12:11:20 03/19/20 24 03/23/2024 BASIC METAB [...] be used in pregn elvira. Not Available [address], [address], 03/23/2024 12:11:20 03/19/20 24 03/23/2024 BASIC METAB OLIC PANEL sodium 143 mmol/ L 136-14 5 Not Available [address], [address], 03/23/2024 12:11:20 03/19/20 24 03/23/2024 BASIC METAB OLIC PANEL potassium 4.0 mmol/ L 3.5-5. 1 Not Available [address], [address], 03/23/2024 12:11:20 03/19/20 24 03/23/2024 BASIC METAB OLIC PANEL chloride 100 mmol/ L 96-107 Not Available [address], [address], 03/23/2024 12:11:20 03/19/20 24 03/23/2024 BASIC METAB OLIC PANEL anion gap 10.5 5.0-15 .0 Not Available [address], [address], 03/23/2024 12:11:20 03/19/20 24 03/23/2024 BASIC METAB OLIC PANEL CO2 33 mmol/ L 21-32 high Not Available [address], [address], 03/23/2024 12:11:20 03/19/20 24 03/23/2024 BASIC METAB OLIC PANEL calcium 8.6 mg/dL 8.5-10 .3 Not Available [address], [address], 03/23/2024 12:11:20 03/19/20 24 03/23/2024 LIPID PANEL cholesterol 215 mg/dL <200 mg/dl Nhung able 200-2 39 mg/dl Borde rline High >240 mg/dl High Not Available [address], [address], 03/23/2024 12:11:21 03/19/20 24 03/23/2024 LIPID PANEL triglyceride s 95 mg/dL <150 mg/dL Latoya l 150-1 99 mg/dL Borde rline High 200-4 99 mg/dL High >500 mg/dL Very High Not Available [address], [address], 03/23/2024 12:11:21 03/19/20 24 03/23/2024 LIPID PANEL direct HDL 62 mg/dL <40 mg/dl - Major Risk for CHD >60 mg/dl - Negat ezequiel Risk for CHD Not Available [address], [address], 03/23/2024 12:11:21 03/19/20 24 03/23/2024 LDL - CALCU LATED LDL - calculated 134.0 RISK CATEG ORY LDL GOAL _ CHD or CHD Risk Equiv alent s <100 mg/dl (10-y ear risk >20%) 2+ Risk Facto rs <130 mg/dl (10-y ear risk <= 20%) 0-1 Risk Facto r? <160 mg/dl ? Almos t all peopl e with 0-1 risk facto r have a 10 year risk <10%, thus 10 year risk asses ment in peopl e with 0-1 risk facto r is not neces kathy. Not Available [address], [address], 03/23/2024 12:11:22 04/09/20 24 04/10/2024 DRUG SCREE N-8, URINE , WITH CONFI RMATI ON GC/MS amphetamine NEG. negati ve Not Available [address], [address], 04/10/2024 10:40:39 04/09/20 24 04/10/2024 DRUG SCREE N-8, URINE , WITH CONFI RMATI ON GC/MS barbiturates NEG. negati ve Not Available [address], [address], 04/10/2024 10:40:39 04/09/20 24 04/10/2024 DRUG SCREE N-8, URINE , WITH CONFI RMATI ON GC/MS benzodiazepi ne NEG. negati ve Not Available [address], [address], 04/10/2024 10:40:39 04/09/20 24 04/10/2024 DRUG SCREE N-8, URINE , WITH CONFI RMATI ON GC/MS cocaine NEG. negati ve Not Available [address], [address], 04/10/2024 10:40:39 04/09/20 24 04/10/2024 DRUG SCREE N-8, URINE , WITH CONFI RMATI ON GC/MS opiates POS. negati ve GCOP= Urine sampl e [facility] to [facility] for confi rmati on of opiat es by GC/MS . Not Available [address], [address], 04/10/2024 10:40:39 04/09/20 24 04/10/2024 DRUG SCREE N-8, URINE , WITH CONFI RMATI ON GC/MS methadone NEG. negati ve Not Available [address], [address], 04/10/2024 10:40:39 04/09/20 24 04/10/2024 DRUG SCREE N-8, URINE , WITH CONFI RMATI ON GC/MS fentanyl NEG. negati ve Syva EMIT II Limit s of Detec tion (cutt -off value s) Magoffin Expan d: Amphe tamin es: 1000 ng/ml Opiat es: 300 ng/ml Rica tuate s: 200 ng/ml Oxyco done 100 ng/ml Benzo diaze pines : 200 ng/ml Metha done 300 ng/ml Cocai ne: 300 ng/ml Fenta nyl 1 ng/ml Not Available [address], [address], 04/10/2024 10:40:39 04/09/20 24 04/10/2024 DRUG SCREE N-8, URINE , WITH CONFI RMATI ON GC/MS oxycodone POS. negati ve GCOP= Urine sampl e sent to [facility] for confi rmati on of opiat es by GC/MS . Not Available [address], [address], 04/10/2024 10:40:39 04/09/20 24 04/12/2024 DRUG TOX MONIT ORING OPIAT ES EXPAN DED QN, U codeine NEGATI VE NG/mL <50 See Note 1 Not Available [facility] [address], [address], 04/12/2024 19:23:43 04/09/20 24 04/12/2024 DRUG TOX MONIT ORING OPIAT ES EXPAN DED QN, U hydrocodone NEGATI VE NG/mL <50 See Note 1 Not Available [facility] [address], [address], 04/12/2024 19:23:43 04/09/20 24 04/12/2024 DRUG TOX MONIT ORING OPIAT ES EXPAN DED QN, U hydromorphon e NEGATI VE NG/mL <50 See Note 1 Not Available [facility] [address], [address], 04/12/2024 19:23:43 04/09/20 24 04/12/2024 DRUG TOX MONIT ORING OPIAT ES EXPAN DED QN, U morphine 2105 NG/mL <50 high See Note 1 Not Available [facility] [address] [place], [address], 04/12/2024 19:23:43 04/09/20 24 04/12/2024 DRUG TOX MONIT ORING OPIAT ES EXPAN DED QN, U norhydrocodo ne NEGATI VE NG/mL <50 See Note 1 Not Available [facility] [place] [address], [place], [address], 04/12/2024 19:23:43 04/09/20 24 04/12/2024 DRUG TOX MONIT ORING OPIAT ES EXPAN DED QN, U noroxycodone 491 NG/mL <50 high See Note 1 Not Available [facility] [place] [address], [place], [address], 04/12/2024 19:23:43 04/09/20 24 04/12/2024 DRUG TOX MONIT ORING OPIAT ES EXPAN DED QN, U oxycodone 561 NG/mL <50 high See Note 1 Not Available [facility] [address], [place], [address], 04/12/2024 19:23:43 04/09/20 24 04/12/2024 DRUG TOX MONIT ORING OPIAT ES EXPAN DED QN, U oxymorphone 1533 NG/mL <50 high See Note 1 Not Available [facility] [address], [address], 04/12/2024 19:23:43 04/09/20 24 04/12/2024 DRUG TOX MONIT ORING OPIAT ES EXPAN DED QN, U Unknown Analyte See Note 2 Note 1 This test was devel oped and its enedina tical perfo rmanc e leta cteri stics have been deter mined by [facility] [employer] ostic s. It has not been clear [...] alist : [phone] X TOX ( [phone] ), M-F, 8am-6 pm EST. Not Available [facility] [address], [place], [address], 04/12/2024 19:23:43 12/14/19 24 12/13/2023 MAMMO , [...] PM Leo beckman Physic avery: Brenda Alexander ms [facility] ([facility]) [address] , [place], [address], 12/16/2023 08:20:33 06/29/20 24 06/29/2024 XR, chest No observ ation record ed. [address], [address], 06/30/2024 12:46:10 09/03/19 25 06/29/2024 XR, chest No observ ation record ed. [address], [address], 09/03/2024 10:32:21 09/03/19 25 06/29/2024 XR, chest No observ ation record ed. [address], [address], 09/04/2024 08:33:47 09/03/19 25 09/03/2024 XR, chest [...] Leo beckman Physic avery: Brenda Alexander ms [facility] (Imaging) [address], [place], [address], 09/03/2024 15:33:10 09/10/19 25 09/03/2024 XR, chest [...] Leo beckman Physic avery: Brenda Alexander ms [facility] (Imaging) [address] [place], [address], 09/10/2024 07:26:54 Result Notes None recorded. Problems Name Problem SNOMED Code Status Onset Date Resolution Date Notes Provider Name and Address Organization Details Recorded Time Recurren t major depressi ve episodes 892975540 Active 2011 Not Available [facility] 0 14:16:47 Major depressi on, melancho lic type 436569940 Completed 201311/25/2020 Removal Reason: recurren t coded and on active problem list SHERRY Head, [facility] 1 06:21:11 Chronic obstruct ezequiel pulmonar y disease 32340544 Active Not Available [facility] 0 14:16:47 Benign essentia l hyperten joshua 6357586 Active 2018 Not Available [facility] 0 14:16:47 Mixed hyperlip idemia 221061557 Active 2018 Not Available [facility] 0 14:16:47 Opioid dependen ce 62952105 Active 2020 coded 01/28/20 Virtual Visit Rita Arevalo LPN maryann, [facility] 1 06:21:51 Essentia l hyperten joshua 92587591 Active 2021 Vicky Bentley MD [address] [place] [address], [phone] , [facility] 2 12:24:07 History of acute respirat ory failure 09686569310 263197 Active 2023 Shruthi Foy NP [address] [place] [address], [phone] , [facility] 4 09:55:01 Nodule of lung 588678979 Active 2023 Shruthi Foy NP [address] [place] [address], [phone] , [facility] 4 09:55:24 Acquired trigger finger 9745808 Completed 200404/02/2011 Not Available [facility] 3 03:06:02 Contusio n 489839531 Completed 200102/06/2011 Not Available [facility] 3 03:06:02 Open wound of finger 952564102 Completed 200002/06/2011 Not Available [facility] 3 03:06:02 Contact dermatit is 31692562 Completed 200204/02/2011 Not Available [facility] 3 03:06:02 Gastroes ophageal reflux disease 971628488 Active Not Available [facility] 0 14:16:48 Cellulit is and abscess of hand excludin g digits Completed 200002/06/[address] [facility] 3 03:06:02 Diarrhea 20496682 Completed 200204/02/[address] [facility] 3 03:06:02 Disorder of trunk 144859538 Completed 200102/06/2011 Not Available [facility] 3 03:06:02 Sciatica 34472162 Completed 200104/02/[address] [facility] 3 03:06:02 Contact dermatit is due to plants, except food Completed 200002/06/2011 Not Available [facility] 3 03:06:02 Emphysem atous bronchit is 564098503 Active Not Available [facility] 0 14:16:47 Chronic asthmati c bronchit is 809869130 Active [address] [facility] 0 14:16:47 Chronic pain 78792578 Active Not Available [facility] 0 14:16:47 Chronic pain 63778901 Completed 04/02/[address] [facility] 3 03:06:02 Low back pain 896370802 Completed 200102/06/[address] [facility] 3 03:06:02 Displace ment of lumbar interver tebral disc without myelopat hy 27419322 Active [address] [facility] 0 14:16:48 Asthma 724014102 Active [address] [facility] 0 14:16:47 Pain in limb 94146886 Completed 200102/06/[address] [facility] 3 03:06:02 Cellulit is and abscess of trunk 797895687 Completed 200204/02/[address] [facility] 3 03:06:02 Problem Notes None recorded. Procedures Surgical History Date Name Laterality Status Provider Name and Address Organization Details Recorded Time 07/14/20 24 Post hospital/SNF follow-up/Transiti onal Care completed Angy Oliyevska [facility] 07/14/2024 14:30:48 06/05/20 24 Medicare Wellness Visit completed Skye Steve MA [facility] 06/05/2024 11:34:39 06/05/20 24 Cardiovascular disease risk reduction counseling completed Vicky Bentley MD [address] [place] [address], [phone], [facility] 06/06/2024 19:42:41 11/18/19 24 Oxygen Administration completed Yi Mckenzie RN [facility] 11/18/2023 11:29:28 11/11/19 24 Oxygen Administration completed Mariza Martin LPN [facility] 11/11/2023 09:16:23 05/31/20 23 Medicare Wellness Visit completed Neil Brewster CMA [facility] 05/31/2023 12:36:43 05/31/20 23 Cardiovascular disease risk reduction counseling completed Vicky Bentley MD [address] [place] [address], [phone], [facility] 06/02/2023 19:50:47 03/18/20 23 Asthma Control Test (12 + years old) completed Carlos Black MA [facility] 03/18/2023 16:15:16 05/31/20 22 Post hospital/SNF follow-up/Transiti onal Care completed Neil Brewster CMA [facility] 05/31/2022 08:46:05 04/25/20 22 Medicare Wellness Visit completed Rima yee MA [facility] 04/25/2022 08:34:47 04/25/20 22 Alcohol use screening completed Rima yee MA [facility] 04/25/2022 08:34:47 04/25/20 22 Cardiovascular disease risk reduction counseling completed Rima yee MA [facility] 04/25/2022 08:34:47 08/23/20 21 Asthma Control Test (12 + years old) completed Malgorzata Campo MA [facility] 08/22/2021 15:11:05 05/12/20 20 prevention-cardiov ascular risk reduction counseling completed Anna Montelongo MA [facility] 05/11/2020 16:37:01 05/12/20 20 prevention-annual alcohol misuse screening completed Anna Montelongo MA [facility] 05/11/2020 16:37:01 05/12/20 20 Medicare Annual Wellness Visit completed Anna Montelongo MA [facility] 05/11/2020 16:37:01 05/11/20 19 Medicare Wellness Visit completed Cheikhbiancanolan HeatonBrook [facility] 05/11/2019 15:29:26 05/11/20 19 Asthma Control Test (12 + years old) [facility] 05/11/2019 15:37:53 08/16/20 16 Cholecystectomy completed Kleber Piper MD [address] [place] [address], [phone], [facility] 08/17/2016 16:42:42 09/26/19 16 Medicare Wellness Visit completed Kleber Piper MD [address] [place] [address], [phone], [facility] 09/26/2015 09:39:10 03/17/20 13 Asthma Control Test (12 + years old) completed Kleber Piper MD [address] [place] [address], [phone], [facility] 03/17/2013 13:44:57 Tonsillectomy completed Not Available [facility] 07/19/2011 06:05:52 Imaging Results Imaging Date Name Status LastModified by Organiz ation Details LastModified Time 12/13/2023 MAMMO, screening, tomosynthesis, bilateral completed [facility] [address], [place], [address], 12/16/2023 08:20:33 06/29/2024 XR, chest completed [address], [address], 06/30/2024 12:46:10 06/29/2024 XR, chest completed [address], [address], 09/03/2024 10:32:21 06/29/2024 XR, chest completed [facility] [address], [place], [address], 09/04/2024 08:33:47 09/03/2024 XR, chest completed [facility] (Im[facility]) [address] [place], [address], 09/03/2024 15:33:10 09/03/2024 XR, chest completed [facility] ([facility]) [address] [place], [address], 09/10/2024 07:26:54 Procedure Notes None recorded. Medical Equipment None Reported. Allergies Allergen ID Allergen Name Allergen Category Reaction Reaction Severity Criticality Documentation Date Start Date Code Code System Note Provider Name and Address Organization Details Recorded Time 997752 budesonid e medicatio n wheezing severe high 03/18/2023 RxNorm TIMA Rutherford [facility] 16:07:55 Medications Name Sig Start Date Stop [...] a day by oral route as needed. 2024 active Not Available Not Available Not Avai [...] release TAKE 1 TABLET BY MOUTH TWICE A DAY FOR 28 DAYS 2024 active CSRP FILL DATE 10/30/24 Not Available Not Available Not Available codeine [...] mg tablet TAKE 1 TABLET BY MOUTH 4 TIMES A DAY FOR 28 DAYS 2024 active CSRP FILL DATE 10/30/24 Not Available Not Available Not Available Calcium 500 mg + D (D3) 3.125 mcg (125 unit) tablet Take 1 tablet twice a day by oral route for 90 days. 2010 active Not Available Not Available Not Avai lable roflumila st 500 mcg tablet TAKE 1 TABLET BY MOUTH DAILY active Not Available Not Available No t Available Combivent Respimat 20 mcg-100 mcg/actua tion solution for inhalatio n Inhale 1 puff 4 times a day by inhalati on route. active Not Available Not Available No t Available Fluzone (PF) 45 mcg (15 mcg x 3)/0.5 mL intramusc ular syringe TO BE ADMINIST ERED BY [email or web address] FOR IMMUNIZA TION 01/09 completed Not Available [...] route for suspecte d opioid overdose . Dahlgren 1 mL in one nostril. Repeat after 3 minutes if no or minimal response 2023 active Not Available Not Available Not Avai lable Flucelvax Quad (PF) 60 mcg (15 mcg x 4)/0.5 mL IM syringe TO BE ADMINIST ERED BY [email or web address] FOR IMMUNIZA TION 07/04 completed Not Available Not Available Not Available oxygen Use 3 liters via nasal cannula on exertion , or as directed 2023 active Per d/c summary [facility] 07/04/24, uses [employer] Not Available Not Available Not Available Wixela Inhub 500 mcg-50 mcg/dose powder for inhalatio n Inhale 1 puff twice a day by inhalati on route. 2023 active Not Available Not Available Not Avai lable Breztri Aerospher e 160 mcg-9mcg- 4.8mcg/ac tuation HFA aerosol inhaler INHALE 2 PUFFS BY MOUTH TWICE DAILY active Not Available Not Available No t Available Trelegy Ellipta 200 mcg-62.5 mcg-25 mcg powder for inhalatio n Inhale 1 puff every day by inhalati on route. 10/01 completed not using 10/01/22M S Not Available Not Available Not Available [employer] COVID-19 Ag Self Test kit USE DIRECTED ON PACKAGE 06/28 completed Not Available Not Available Not Available Vitals Date Recorded Body height Body mass index (BMI) Body weight Oxygen saturation Oxygen saturation in Arterial blood by Pulse oximetry Heart rate Systolic blood pressure Diastolic blood pressure Provider Name and Address Organization Details Last Updated DateTime 4 162.56 cm 24.9 kg/m2 11217.8 9 g 91 % 91 % 98 /min 142 mm[Hg] 72 mm[Hg] Nan Porter Rico [facility] 4 11:23:08 Date Recorded Body height Body mass index (BMI) Body weight Heart rate Systolic blood pressure Diastolic blood pressure Provider Name and Address Organization Details Last Updated DateTime 4 162.56 cm 24.9 kg/m2 28005.8 9 g 88 /min 122 mm[Hg] 68 mm[Hg] Skye Steve MA [facility] 4 11:35:41 Date Recorded Body height Oxygen saturation Oxygen saturation in Arterial blood by Pulse oximetry Heart rate Body mass index (BMI) Body weight Systolic blood pressure Diastolic blood pressure Provider Name and Address Organization Details Last Updated DateTime 4 162.56 cm 95 % 95 % 76 /min 26.3 kg/m2 96321.7 3 g 126 mm[Hg] 72 mm[Hg] Skye Steve MA [facility] 4 11:14:02 Date Recorded Body height Oxygen saturation Oxygen saturation in Arterial blood by Pulse oximetry Heart rate Body mass index (BMI) Body weight Systolic blood pressure Diastolic blood pressure Provider Name and Address Organization Details Last Updated DateTime 4 162.56 cm 97 % 97 % 86 /min 26.5 kg/m2 67645.0 2 g 122 mm[Hg] 66 mm[Hg] Skye Steve MA [facility] 4 11:42:03 Date Recorded Body height Body mass index (BMI) Body weight Heart rate Oxygen saturation Oxygen saturation in Arterial blood by Pulse oximetry Systolic blood pressure Diastolic blood pressure Provider Name and Address Organization Details Last Updated DateTime 4 162.56 cm 25.6 kg/m2 94908.3 6 g 94 /min 94 % 94 % 100 mm[Hg] 62 mm[Hg] Angy Yi [facility] 4 14:37:12 Social History Question Answer Notes LastModified by Organizat ion Details LastModified Time Tobacco Smoking Status Former Smoker quit in october TIMA Benitez [facility] 02/20/2021 12:30:50 Do You Have An Advance Directive? Yes spouse [email or web address] Information not available 10/01/2022 What Is Your Level Of Alcohol Consumption? Occasional Veryvery Rare [email or web address] Information not available 06/05/2024 Do You Wear [...] No Waiting For Grandson To Be Born [email or web address] Information not available 06/05/2024 When Did You Quit Smoking? 16+yearssince lastcarlos manuel [email or web address] Information not available 08/19/2023 Are There Any Guns Present In Your Home? Yes LOCKED Information not available 10/04/2011 Do You Use Insect Repellent Routinely? No [email or web address] Information not available 06/05/2024 Live Alone Or With Others? With Others [email or web address] Information not available 10/01/2022 CSRP - Narcotics Yes 7 Information not available 07/19/2011 CSRP Contract Signed And Discussed Yes Dr. Bentley Contract 10/01/2022 Narcotics 7 Information not available 07/19/2011 Patient Has Health Care Proxy Signed And In Chart Yes Given 05/11/19 Aniyah Pt To Send Copy 05/31/23 Sabiha [email or web address] Information not available 05/12/2019 Marital Status [email or web address] Informatio n not available 10/01/2022 Mosquito Repellent Used Routinely Yes [email or web address] Information not available 10/01/2022 What Was The Date Of Your Most Recent Tobacco Screening? 07/14/2024 [email or web address] Information not available 07/14/2024 How Many Children Do You Have? 3 7 Information not available 07/19/2011 What Is Your Current Pack Years? 10-19packyear s [email or web address] Information not available 04/09/2024 What Is Your Relationship Status? blepage Information not available 04/05/2021 Do You Use Your Seat Belt Or Car Seat Routinely? Yes [email or web address] Information not available 04/25/2022 Seat Belts Used Routinely Yes [email or web address] Information not available 10/01/2022 Are You Sexually Active? Yes Information not available 07/19/2011 Smoke Alarm In [...] How Much Tobacco Do You Smoke? No [email or web address] Information not available 04/09/2024 What Types Of Sporting Activities Do You Participate In? None Information not available 07/19/2011 General Stress Level Low [email or web address] Information not available 10/01/2022 Do You Use Any Illicit Or Recreational Drugs? No Information not available 08/03/2022 Do You Use Sunscreen Routinely? No [email or web address] Information not available 06/05/2024 How Many Years Have You Smoked Tobacco? 15 alot [email or web address] Information not available 04/09/2024 Do You Or [...] exercise level? Moderate 5 miles walking daily [email or web address] Information not available 06/05/2024 Mental Status Question [...] influenza, unspecified formulation 3 completed Not Available [facility] 07/18/2011 05:21:07 influenza, unspecified formulation 4 completed Not Available [facility] 07/18/2011 05:21:07 Influenza, split virus, trivalent, preservative 1 completed Not Available [facility] 09/19/2019 02:38:55 pneumococcal polysaccharide PPV23 1 completed Not Available [facility] 09/19/2019 02:14:32 Td(adult) unspecified formulation 5 completed Not Available [facility] 07/18/2011 05:21:07 Tdap 3 completed Not Available [facility] 09/19/2019 02:29:25 Influenza, split virus, trivalent, PF 4 completed Not Available [facility] 09/19/2019 02:26:36 Influenza, high-dose, trivalent, PF 3 completed Not Available [facility] 10/01/2022 10:56:31 Influenza, split virus, quadrivalent, PF 3 completed Not Available [facility] 10/01/2022 10:56:31 Influenza, split virus, quadrivalent, preservative 8 completed Not Available [facility] 10/01/2022 10:56:30 Influenza, split virus, quadrivalent, preservative 9 completed Not Available [facility] 10/01/2022 10:56:30 pneumococcal polysaccharide PPV23 1 completed TIMA Benitez, [facility] 04/05/2021 15:32:17 Td (adult), 2 Lf tetanus toxoid, preservative free, adsorbed 3 completed Vicky Bentley MD [address] [place] [address], [address], [facility] 03/23/2023 14:44:29 COVID-19, mRNA, LNP-S, PF, 100 mcg/0.5mL dose or 50 mcg/0.25mL dose 1 completed TIMA Anglin, [facility] 12/16/2023 11:12:22 COVID-19, mRNA, LNP-S, PF, 100 mcg/0.5mL dose or 50 mcg/0.25mL dose 1 [facility] 11:12:22 COVID-19, mRNA, LNP-S, PF, 100 mcg/0.5mL dose or 50 mcg/0.25mL dose 1 [facility]/16/2023 11:12:22 COVID-19, mRNA, LNP-S, PF, 100 mcg/0.5mL dose or 50 mcg/0.25mL dose 2 [facility]/16/2023 11:12:22 COVID-19, mRNA, LNP-S, bivalent, PF, 50 mcg/0.5 mL or 25mcg/0.25 mL dose 2 [facility]/16/2023 11:12:22 zoster recombinant 2 [facility] 12/16/2023 11:12:21 Influenza, high-dose, quadrivalent, PF 2 [facility] 12/16/2023 11:12:22 zoster recombinant 2 [facility] 12/16/2023 11:12:22 influenza, unspecified formulation 3 [facility] 08/19/2023 09:23:44 Influenza, MDCK, quadrivalent, PF 7 completed [facility] 12/16/2023 11:12:21 Influenza, high-dose, quadrivalent, PF 1 [facility] 12/16/2023 11:12:22 Influenza, high-dose, quadrivalent, PF 3 [facility] 12/16/2023 11:12:22 RSV, bivalent, protein subunit RSVpreF, diluent reconstituted, 0.5 mL, PF 3 [facility] 12/16/2023 11:12:22 COVID-19, mRNA, LNP-S, PF, melquiades-sucrose, 30 mcg/0.3 mL 3 [facility] 12/16/2023 11:12:22 Influenza, split virus, trivalent, preservative 9 completed [facility] 12/16/2023 11:12:22 Influenza, split virus, trivalent, PF 0 [facility] 12/16/2023 11:12:22 Influenza, split virus, trivalent, PF 6 [facility] 12/16/2023 11:12:22 Influenza, split virus, trivalent, PF 5 [facility] 12/16/2023 11:12:22 Influenza, split virus, quadrivalent, PF 8 [facility] 12/16/2023 11:12:22 Influenza, high-dose, trivalent, PF 4 [facility] 06/05/2024 11:38:31 influenza, unspecified formulation 0 completed Not Available [facility] 07/18/2011 05:20:34 Past Encounters Encounter ID Performer Location Encounter Start Date Encounter Closed Date Diagnosis/Indication Diagnosis SNOMED-CT Code Diagnosis ICD10 Code Diagnosis Note [id number] [facility], OFFICE [address] [place] [address] 08/05/2000 14:05:00 09/22/2008 02:02:29 [id number] [facility] [address] [place] [address] 01/12/2001 14:30:00 09/22/2008 02:02:29 [id number] [facility] [address] [place] [address] 01/18/2001 10:45:00 09/22/2008 02:02:29 [id number] [facility] [address] [place] [address] 02/22/2001 11:45:00 09/22/2008 02:02:29 [id number] FP, [facility], OFFICE [address] [facility] [place] [place] [address] 08/22/2001 09:00:00 09/22/2008 02:02:29 [id number] [place] , [facility] [place] [address] [place] [address] 10/07/2001 09:30:00 09/22/2008 02:02:29 [id number] [place] , [facility] [place] [address] [place] [address] 10/07/2001 00:00:00 09/22/2008 02:02:29 [id number] , [facility], OFFICE [address] [facility] [place] [address] 12/23/2001 10:30:00 09/22/2008 02:02:29 [id number] Radiology , [facility] 70 [facility] [place] [address] 12/23/2001 10:45:00 09/22/2008 02:02:29 [id number] Radiology , [facility] 70 [facility] [place] [address] 12/23/2001 00:00:00 09/22/2008 02:02:29 [id number] , [facility], OFFICE [address] [facility] [place] [address] 02/04/2002 13:59:33 09/22/2008 02:02:29 [id number] FP, [facility], OFFICE [address] [facility] [place] [address] 02/06/2002 15:43:21 09/22/2008 02:02:29 [id number] Physical Therapy, [facility] [address] [facility] [place] [address] 02/10/2002 10:28:49 09/22/2008 02:02:29 [id number] Physical Therapy, [facility] 70 [facility] [place] [address] 02/20/2002 10:12:54 09/22/2008 02:02:29 [id number] FP, [facility], [address]ICE [address] [place] [address] 02/25/2002 09:10:34 09/22/2008 02:02:29 [id number] FP [facility], OFFICE [address] [place] [address] 03/20/2002 08:24:14 09/22/2008 02:02:29 [id number] FP [facility], OFFICE [address] [place] [address] 05/18/2002 09:05:54 09/22/2008 02:02:29 [id number] Physical Therapy, [facility] 70 [facility] [place] [address] 05/21/2002 08:24:50 09/22/2008 02:02:29 [id number] Physical Therapy, [facility] 70 [facility] [place] [address] 07/27/2002 12:51:55 09/22/2008 02:02:29 [id number] JONNY [facility], OFFICE [address] [facility] [place] [address] 08/31/2002 10:33:45 09/22/2008 02:02:29 [id number] JONNY [facility], OFFICE [address] [facility] [place] [place] [address] 11/06/2002 15:00:08 09/22/2008 02:02:29 [id number] JONNY [facility], OFFICE [address] [facility] [place] [address] 12/28/2002 10:14:58 09/22/2008 02:02:29 [id number] JONNY [facility], OFFICE [address] [facility] [place] [address] 02/12/2003 08:56:29 09/22/2008 02:02:29 [id number] JONNY [facility], OFFICE [address] [facility] [place] [address] 03/02/2003 14:21:56 09/22/2008 02:02:29 [id number] LAB - [facility] 70 [facility] [place] [address] 03/02/2003 15:01:11 09/22/2008 02:02:29 [id number] LAB - [address] [place] [address] 03/04/2003 09:31:51 09/22/2008 02:02:29 [id number] JONNY [facility], OFFICE [address] [facility] [place] [address] 05/28/2003 11:56:50 05/31/2003 14:28:24 [id number] FP, [facility], OFFICE [address] [facility] [place] [address] 06/07/2003 17:44:06 06/07/2003 17:44:11 [id number] [facility], [address] [place] [address] 2003 00:00:00 09/22/2008 02:02:29 [id number] FP, [facility], OFFICE [address] [facility] [place] [address] 02/28/2004 09:46:53 02/28/2004 13:18:03 [id number] FP, [facility], OFFICE [address] [facility] [place] [address] 06/05/2004 14:57:20 06/06/2004 08:42:24 [id number] FP, [facility], OFFICE [address] [facility] [place] [address] 02/07/2005 08:38:05 02/07/2005 14:19:37 [id number] FP, [facility], OFFICE [address] [facility] [place] [address] 07/31/2005 15:16:01 09/22/2008 02:02:29 [id number] FP, [facility], OFFICE [address] [facility] [place] [address] 02/12/2006 09:41:31 02/12/2006 11:17:42 [id number] FP, [facility], OFFICE [address] [facility] [place] [address] 02/18/2007 11:03:35 02/18/2007 14:32:16 [id number] FP, [facility], OFFICE [address] [facility] [place] [address] 05/16/2009 11:44:34 05/16/2009 16:17:05 [id number] FP, [facility], OFFICE [address] [facility] [place] [address] 07/27/2009 10:04:18 07/27/2009 13:27:36 [id number] FP, [facility], OFFICE [address] [facility] [place] [address] 08/05/2009 09:19:22 08/09/2009 14:41:32 [id number] FP, [facility], OFFICE [address] [facility] [place] [address] 08/02/2010 08:53:38 08/02/2010 12:09:07 [id number] MD JONNY Koo, [facility], OFFICE [address] [facility] [place] [address] 12/25/2010 13:23:09 12/27/2010 09:40:30 [id number] Kleber Piper MD , [facility], OFFICE [address] [facility] [address] [place], [place] [address] 04/02/2011 07:40:36 04/02/2011 08:21:58 [id number] FP, [facility], OFFICE [address] [facility] [place], [place] [address] 06/26/2011 08:44:23 06/26/2011 10:14:38 [id number] FP, [facility], OFFICE [address] [facility] [place] [address] 06/29/2011 07:34:11 06/29/2011 13:26:43 [id number] FP, [facility], OFFICE [address] [facility] [place] [address] 10/04/2011 09:40:48 10/04/2011 10:52:43 [id number] FP, [facility], OFFICE [address] [facility] [place] [address] 11/02/2011 09:07:34 11/02/2011 09:32:35 [id number] Kleber Piper MD , [facility], OFFICE [address] [facility] [place] [address] 01/01/2012 09:13:07 01/03/2012 09:26:15 [id number] Kleber Piper MD , [facility], OFFICE [address] [facility] [place] [address] 04/02/2012 08:48:27 04/02/2012 09:28:20 [id number] Kleber Piper MD , [facility], OFFICE [address] [facility] [place] [address] 08/11/2012 08:10:32 08/11/2012 08:45:50 [id number] Kleber Piper MD FP, [facility], OFFICE [address] [facility] [place] [address] 11/12/2012 10:12:37 11/12/2012 10:57:39 [id number] FP, [facility], OFFICE [address] [facility] [place] [address] 03/17/2013 09:48:52 03/17/2013 10:58:55 [id number] MD JONNY Koo, [facility], OFFICE [address] [facility] [place] [address] 04/09/2013 08:20:21 04/09/2013 08:43:03 [id number] Ananth Concepcion MA , [facility], [address] [place] [address] 05/06/2013 08:26:24 05/07/2013 16:29:59 Asthma [id number] Kleber Piper MD , [facility], [address] [place] [address] 06/02/2013 07:49:54 06/02/2013 08:42:29 Chronic pain 09878675 fair control on current regimen; continue same dose of narcotics; ibuprofen helps Gastroesop hageal reflux disease 104780294 Anxiety disorder 972056790 Moderate depression 365282199 [id number] Kleber Piper MD , [facility], [address] [place] [address] 09/10/2013 09:55:05 09/10/2013 10:24:28 Chronic pain 63923735 same dose of morphine Gastroesop hageal reflux disease 548159362 Moderate depression 301352827 [id number] Kleber Piper MD , [facility], [address] [place] [address] 12/03/2013 09:16:06 12/03/2013 10:09:54 Chronic pain 20049253 same dose of morphine- not interested in trying to cut back pain control isstable but just moderate. failed adjuvent therapies. does take ibuprofen high dose Major depr ession, melancholic type 679256760 doing okay off med for now Epidermoid cyst 193935298 reassured Chronic ob structive pulmonary disease 62344628 albuterol prn [id number] Lorenzo Wagner MD , [facility], [address]ICE [address] [place] [address] 12/05/2013 14:39:18 12/05/2013 15:34:14 Nausea and vomiting 91984628 Dizziness 737878585 [id number] Kleber Piper MD , [facility], [address] [place] [address] 12/07/2013 14:41:32 12/07/2013 15:26:42 Vertigo 957923089 most likely BPV. call if returns. pt and educated about condition [id number] Kleber Piper MD , [facility], [address] [place] [address] 03/24/2014 10:44:05 03/24/2014 11:30:47 Sprain of foot 85967725 heat, rest, arch support and ibuprofen 400mg qid. call prn [id number] Maria De Jesus Mosher MA , [facility], [address] [place] [address] 04/05/2014 10:03:37 04/05/2014 10:45:45 Counseling [id number] Adult heal th examination 658426538 see Risk Assessment and Lifestyle Change Counseling section above Chronic ob structive pulmonary disease 68369191 albuterol with spacer prn Chronic pain 19099936 sa me dose of morphine- still with back pain but managing [id number] Kleber Piper MD , [facility], [address] [place] [address] 07/06/2014 09:20:02 07/06/2014 09:48:22 Chronic pain 56255435 same dose of morphine- still with back pain but managing Emphysemat ous bronchitis 280041683 albuterol with spacer prn Gastroesop hageal reflux disease 925093548 Influenza vaccine needed [id number] 363 [id number] , [facility], [address] [place] [address] 10/05/2014 09:14:57 10/05/2014 09:54:43 Chronic pain 27535082 same dose of morphine- still with back pain but managing Chronic ob structive pulmonary disease 79219285 albuterol with spacer prn Moderate depression 961630691 in remission off meds - uses clonazepam prn for anxiety [id number] Kleber Piper MD , [facility], [address] [place] [address] 12/30/2014 09:37:48 12/30/2014 10:24:03 Chronic pain 72535879 same dose of morphine- still with back pain but managing Chronic ob structive pulmonary disease 36527702 albuterol with spacer prn Moderate depression 464160179 in remission off meds - uses clonazepam prn for anxiety Gastroesop hageal reflux disease 764357392 [id number] Kleber Piper MD , [facility], [address] [place] [address] 03/24/2015 09:42:24 03/24/2015 10:13:01 Displacement of lumbar intervertebral disc without myelopathy 94089684 Chronic pain 26777531 sa me dose of morphine- still with back pain but managing Chronic ob structive pulmonary disease 64205130 albuterol with spacer prn Moderate depression 359196383 in remission off meds - uses clonazepam prn for anxiety Gastroesop hageal reflux disease 877072276 [id number] Isabel Adrian , [facility], [address] [place] [address] 06/14/2015 09:17:07 06/14/2015 10:06:46 Chronic pain 74024659 R52 G89.29 same dose of morphine- still with back pain but managing Displaceme nt of lumbar intervertebral disc without myelopathy 52231726 M51.26 Chronic ob structive pulmonary disease 66783413 J44.9 albuterol with spacer prn Moderate depression 3104 12619 F32.1 in remission off meds - uses clonazepam prn for anxiety Gastroesop hageal reflux disease 159034149 K21.9 [id number] Kleber Piper MD , [facility], [address] [place] [address] 09/26/2015 08:41:09 09/26/2015 10:22:04 Chronic pain 85219465 R52 same dose of morphine- still with back pain but managing Adult heal th examination 369880465 Z00.00 see Risk Assessment and Lifestyle Change Counseling section above Counseling 748723901 Z71 .9 Screening for disorder 574709411 Z13.9 Chronic ob structive pulmonary disease 49194237 J44.9 albuterol with spacer prn Screening for malignant neoplasm of cervix 844715500 Z12.4 Mucocele of mouth 033889 008 K13.79 pt to let me know when she wants this removed. will refer to ENT [id number] Kleber Piper MD , [facility], [address] [place] [address] 12/26/2015 09:11:04 12/26/2015 10:13:09 Chronic pain 75253318 R52 same dose of morphine- still with back pain but managing Chronic ob structive pulmonary disease 83350786 J44.9 albuterol with spacer prn Gastroesop hageal reflux disease 618586375 K21.9 [id number] Kleber Piper MD , [facility], [address] [place] [address] 03/26/2016 09:20:40 03/27/2016 11:32:15 Chronic pain 97700566 R52 pt told of higher risk of if taking over 100mg of morphine a day. agrees to cut morpine short aciting from 15mg 5 times a day to qid. Epidermoid cyst of skin 695763218 L72.0 [id number] Kleber Piper MD , [facility], [address] [place] [address] 06/13/2016 08:15:17 06/13/2016 08:45:43 Moderate depression 196771266 F32.1 in remission off meds - Chronic ob structive pulmonary disease 13666491 J44.9 not fully controlled with albuterol alone Screening for malignant neoplasm of colon 839723070 Z12.11 refuses colonosoco py Displaceme nt of lumbar intervertebral disc without myelopathy 00594013 M51.26 try norpramin- decrease MSIR to 15mg 3 1/2 tabs qd. told how dangerous morphine doses above 100mg a day is. we are slowly tapering her down. [id number] Kleber Piper MD , [facility], [address] [place] [address] 09/26/2016 08:21:59 09/28/2016 16:20:53 Chronic pain 08612247 R52 reduce total morphine equivalent from 240 to about 200mg a day- warned about withdrawal sx Chronic ob structive pulmonary disease 13973876 J44.9 not controlled - d/c combivent- substitute albuterol 2 puffs q4h and add spiriva [id number] Kleber Piper MD , [facility], [address] [place] [address] 11/15/2016 08:31:10 11/15/2016 13:44:42 Acute bronchitis 92773246 J20.9 with laryngitis rest, hot liquids,hu midify air, call if worse Chronic ob structive pulmonary disease 95061290 J44.9 continue same meds. [id number] Kleber Piper MD , [facility], [address] [place] [address] 12/24/2016 10:37:46 12/25/2016 13:15:37 Opioid dependence 30057641 F11.20 we are gong to taper her MS contin to 3omg tid from 60mg bid starting next month Chronic ob structive pulmonary disease 21261721 J44.9 add a LABA to the LAMA, cont albuterol Displaceme nt of lumbar intervertebral disc without myelopathy 57881296 M51.26 has fair and stable pain control nowreduce total morphine equivalent want to get donw to 100mg or less [id number] Kleber Piper MD , [facility], [address] [place] [address] 04/02/2017 09:15:06 04/02/2017 09:55:13 Chronic pain 58220331 R52 reduce oxycodone for 15mg qid to 10mg 5 times a day. ureged to cut to qid if can. Chronic ob structive pulmonary disease 33746645 J44.9 on stiolto and albuterol doing better. check to make sure not taking spiriva in addition. [id number] Kleber Piper MD , [facility], [address] [place] [address] 07/04/2017 09:17:19 07/04/2017 09:53:26 Chronic pain 64382215 R52 increase oxycodone for 15mg qid from 10mg 5 times a day. at same time will decrease MS contin to 30mg bid from tid. pt understand s goal is to get her under 100mg of morphine equivalent s Opioid dependence 875811 00 F11.20 Chronic ob structive pulmonary disease 22067876 J44.9 stable [id number] Kleber Piper MD , [facility], [address] [place] [address] 10/07/2017 08:19:31 10/07/2017 08:51:10 Opioid dependence 14783903 F11.20 Chronic ob structive pulmonary disease 35804117 J44.9 stable Chronic pain 02822804 R5 2 increase oxycodone for 15mg qid from 10mg 5 times a day. at same time will decrease MS contin to 30mg bid from tid. pt understand s goal is to get her under 100mg of morphine equivalent s- this new proram gets her down about 8mg a day morphine equivalent Gastroesop hageal reflux disease 387603827 K21.9 [id number] Vicky Bentley MD , [facility], [address] [place] [address] 01/09/2018 11:33:07 01/09/2018 12:52:18 Chronic pain 65351103 R52 Opioid dependence 000901 00 F11.20 will begin process of decreasing pain meds - will switch to 10 mg tabs and decrease by 5 mg with next refill and continue 5 mg every month Chronic ob structive pulmonary disease 74312612 J44.9 Chronic back pain 855455 002 M54.9 [id number] Vicky Bentley MD , [facility], [address] [place] [address] 04/21/2018 15:22:33 04/21/2018 16:19:21 Adult health examination 444950548 Z00.00 see Risk Assessment and Lifestyle Change Counseling section above Depression screening 171 335548 Z13.89 depression screening tool administer ed, entered into emr, scored and discussed, time greater than 7.5 minutes Screening mammography 24 880881 Z12.31 Chronic pain 41759478 R5 2 Chronic ob structive pulmonary disease 42823990 J44.9 Gastroesop hageal reflux disease 631828447 K21.9 Screening for malignant neoplasm of colon 506675550 Z12.11 Referral for a DIRECT booked colonoscop y. This patient is a healthy ASA Class 1 or 2 patient (only mild systemic disease), or a STABLE, well controlled insulin dependent diabetic. They do not have serious cardiac disease ie TX/angiopl asty within 1 year, symptomati c CHF; renal failure with CKD 4 or 5; take Coumadin, Plavix, Aggrenox, etc. Alcohol dependence 37898 003 F10.21 not presenlty drinking [id number] GRISELDA Cook , [facility], [address] [place] [address] 05/08/2018 11:13:09 05/09/2018 12:51:26 Chronic obstructive pulmonary disease 14574467 J44.9 Increased blood pressure 71938073 R03.0 Screening for malignant neoplasm of cervix 968450494 Z12.4 [id number] Vicky Bentley MD , [facility], [address] [place] [address] 06/30/2018 08:46:24 07/30/2018 14:35:21 Screening for malignant neoplasm of colon 949192878 Z12.11 Referral for a DIRECT booked colonoscop y. This patient is a healthy ASA Class 1 or 2 patient (only mild systemic disease), or a STABLE, well controlled insulin dependent diabetic. They do not have serious cardiac disease ie TX/angiopl asty within 1 year, symptomati c CHF; renal failure with CKD 4 or 5; take Coumadin, Plavix, Aggrenox, etc. Plantar fasciitis 878002 003 M72.2 xray neg will take aleve and get arch supports and f/u Elevated blood-pressure reading without diagnosis of hypertension 966339686 R03.0 [id number] Vicky Bentley MD , [facility], [address] [place] [address] 07/28/2018 09:36:35 07/29/2018 16:23:25 Long-term drug therapy 031265347 Z79.899 Chronic ob structive pulmonary disease 85163567 J44.9 Major depr ession, melancholic type 250081900 F32.9 continue daily exercise Benign ess ential hypertension 8442778 I10 bp has been slowly increasing discussed med choices and will start lisinopril Plantar fasciitis 133467 003 M72.2 xray neg will take aleve and get arch supports and f/u [id number] Vicky Bentley MD , [facility], [address] [place] [address] 10/30/2018 10:55:54 10/30/2018 12:06:09 Chronic pain 29602461 R52 will continue present opioid with drop to 4 per day oxycodone Opioid dependence 703241 00 F11.20 Long-term drug therapy 420764438 Z79.899 Screening for malignant neoplasm of colon 992487826 Z12.11 Referral for a DIRECT booked colonoscop [...] Aggrenox, etc. Chronic ob structive pulmonary disease 12902198 J44.9 stable on meds will continue [id number] MD JONNY Koch, [facility], [address] [place] [address] 01/14/2019 13:33:47 01/15/2019 12:01:12 Chronic obstructive pulmonary disease 10952395 J44.9 stable on meds will continue Chronic pain 10878482 R5 2 will continue present opioid with drop to 4 per day oxycodone Opioid dependence 779712 00 F11.20 Benign ess ential hypertension 2304424 I10 bp has improved no chest pain or sob Gastroesop hageal reflux disease 070645808 K21.9 continue omeprazole Low back pain 469580460 M54.5 continue meds and walking Moderate depression 3104 27548 F32.1 continue meds [id number] Vicky Bentley MD , [facility], [address] [place] [address] 05/11/2019 15:17:58 05/11/2019 16:06:14 Chronic obstructive pulmonary disease 30006020 J44.9 stable on meds will continue Recurrent major depressive episodes 621763244 F33.9 presenltyu off medication s feels doing well Chronic pain 98522898 R5 2 will continue present opioid Adult heal th examination 571758532 Z00.00 see risk assessment and counseling section Depression screening 171 932077 Z13.89 depression screening tool administer ed, entered into emr, scored and discussed, time greater than 7.5 minutes Intrinsic asthma 7319386 08 J45.20 INTERMITTE NT Asthma- Based on history, physical assessment and peak flow the patients asthma is in control. Will continue the present medication s and follow-up in 6 months. The asthma action plan has been discussed. The patient verbalizes understand ing medication use.. The patient is in agreement with this plan. Counseling 726636649 Z71 .9 Benign ess ential hypertension 5312484 I10 bp has improved no chest pain or sob Mixed hyperlipidemia 267 830397 E78.2 doesnt want medicine but will consider and work on doet [id number] Vicky Bentley MD , [facility], [address] [place] [address] 10/02/2019 16:14:12 10/05/2019 14:18:03 Chronic pain 64126098 R52 will continue present opioid Long-term drug therapy 942615108 Z79.899 Benign ess ential hypertension 1968732 I10 bp has improved no chest pain or sob Chronic ob structive pulmonary disease 10616301 J44.9 stable on meds will continue Opioid dependence 227746 00 F11.20 Recurrent major depressive episodes 992338752 F33.9 presenltyu off medication s feels doing well [id number] Shruthi Foy NP , [facility], [address] [place] [address] 11/24/2019 11:19:00 12/02/2019 14:19:52 Pain of right ankle joint 1023656901 4292302 M25.571 POssible avulsion fx vs sprain. Advised RICE, alt with warm soaks and gentle stretches. Avoid weight bearing next few days as able. Send portal message with update 2-3d. We want to avoid xray if possible and advised pt that often these fractures are not casted anyway. Pt agrees with plan. [id number] Vicky Bentley MD , [facility], [address] [place] [address] 01/28/2020 15:58:28 02/10/2020 10:48:45 Gastroesophageal reflux disease 543358415 K21.9 continue omeprazole Chronic pain 08348279 R5 2 will continue present opioid Long-term drug therapy 218837015 Z79.899 Benign ess ential hypertension 0097403 I10 bp has improved no chest pain or sob Chronic ob structive pulmonary disease 64690058 J44.9 stable on meds will continue Opioid dependence 226601 00 F11.20 Recurrent major depressive episodes 710833400 F33.9 presenltyu off medication s feels doing well [id number] Vicky Bentley MD , [facility], [address] [place] [address] 05/12/2020 10:30:04 05/20/2020 15:45:10 Adult health examination 248009925 Z00.00 see risk assessment and lifestyle change section Depression screening 171 652190 Z13.89 depression screening tool administer ed, entered into emr, scored and discussed, time greater than 7.5 minutes Screening for alcohol abuse 890468077 Z13.39 Counseling 810884464 Z71 .89 including cardiovasc ular risk reduction counseling Asthma 883687103 J45.90 9 [id number] Vicky Bentley MD FP, [facility], [address] [place] [address] 10/24/2020 11:51:19 10/27/2020 16:26:22 Chronic pain 75711331 R52 will continue present opioid will need tox screen and f/u 3 months Screening mammography 24 053928 Z12.31 Benign ess ential hypertension 6354230 I10 bp has improved on lisinopril now at goal no chest pain or sob Chronic ob structive pulmonary disease 45405422 J44.9 stable on meds will continue [id number] Vicky Bentley MD FP, [facility], [address] [place] [address] 02/20/2021 11:48:24 03/06/2021 06:39:07 Opioid dependence 35387978 F11.90 for chronic back pain well controlled Recurrent major depressive episodes 254805814 F33.9 presenltyu off medication s feels doing well Chronic pain 30284908 R5 2 will continue present opioid will need tox screen and f/u 3 months Screening for osteoporosis 736418863 Z13.820 Benign ess ential hypertension 0951491 I10 bp has improved on lisinopril but has cough will switch to losartan [id number] Vicky Bentley MD , [facility], [address] [place] [address] 04/05/2021 14:17:05 04/05/2021 15:31:28 Chronic pain 10949710 R52 will continue present opioid will need tox screen and f/u 3 months Long-term current use of opiate analgesic drug 3380715018 33268 Z79.891 Active or passive immunization 668563248 Z23 Benign ess ential hypertension 5483168 I10 bp has improved on lisinopri and switched to losartan due to cough bp elevated will increase losartan [id number] Vicky Bentley MD , [facility], [address] [place] [address] 05/04/2021 11:02:05 05/19/2021 11:33:31 Essential hypertension 13780873 I10 bp elevate will inc amlodipine Chronic ob structive pulmonary disease 77290186 J44.9 stable on meds will continue [id number] Vicky Bentley MD , [facility], [address] [place] [address] 08/23/2021 15:03:06 09/01/2021 01:03:18 Mild persistent asthma 790581248 J45.30 (symptoms or bronchodil ator use more [...] the role of inflammati on Essential hypertension 94702396 I10 bpat goal on meds Mixed hyperlipidemia 267 595892 E78.2 Cholestero l is at goal Continue to work on diet and exercise as discussed Chronic pain 55165660 R5 2 will continue present opioid will need tox screen and f/u 3 months Long-term current use of opiate analgesic drug 5820435298 86326 Z79.891 Long-term drug therapy 799614027 Z79.899 Asthma 228291395 J45.90 9 Opioid dependence 297416 00 F11.20 for chronic back pain well controlled [id number] Vicky Bentley MD , [facility], [address] [place] [address] 11/23/2021 11:45:38 12/12/2021 10:41:46 Chronic pain 15710930 R52 will continue present opioid will need tox screen and f/u 3 months Long-term current use of opiate analgesic drug 9463248192 39681 Z79.891 Asthma 287380381 J45.90 9 stable has flovent Benign ess ential hypertension 4005730 I10 bp has improved on lisinopri and switched to losartan due to cough bp elevated will increase losartan Displaceme nt of lumbar intervertebral disc without myelopathy 94625830 M51.26 cause of chronic back pain Mixed hyperlipidemia 267 172619 E78.2 Cholestero l is at goal Continue to work on diet and exercise as discussed Long-term drug therapy 234353775 Z79.899 Essential hypertension 89202626 I10 bpat goal on meds [id number] Vicky Bentley MD , [facility], [address] [place] [address] 02/14/2022 16:18:12 02/15/2022 09:49:42 Chronic pain 70299986 R52 will continue present opioid will need tox screen and f/u 3 months Long-term current use of opiate analgesic drug 0861542014 58308 Z79.891 chronic back pain that has required chronic opioids to remain functional Essential hypertension 50603565 I10 bpat goal on meds Chronic ob structive pulmonary disease 22957952 J44.9 stable on meds will continue Mixed hyperlipidemia 267 096270 E78.2 Cholestero l is at goal Continue to work on diet and exercise as discussed Long-term current use of drug therapy 028262810 Z79.899 Constipation 19762118 K5 9.00 Opioid dependence 084361 00 F11.20 for chronic back pain well controlled [id number] Vicky Bentley MD , [facility], [address] [place] [address] 04/25/2022 15:46:45 05/03/2022 12:30:38 Adult health examination 694509352 Z00.00 see risk assessment and lifestyle change section Counseling 726034719 Z71 .9 including cardiovasc ular risk reduction counseling Depression screening 171 396354 Z13.31 depression screening tool administer ed, entered into emr, scored and discussed, time greater than 7.5 minutes Screening for alcohol abuse 209897012 Z13.39 Benign ess ential hypertension 7668410 I10 Mixed hyperlipidemia 267 414686 E78.2 Cholestero l is at goal Continue to work on diet and exercise as discussed Essential hypertension 79499576 I10 bpat goal on meds Hypertensi onBlood pressure is reasonable today.She will continue on amlodipine and hydrochlor othiazide, refills provided today. Osteoporosis 58746508 M8 1.0 Osteoporos isShe will continue on vitamin B12 and Kenneth vitamins for women daily.Enco uraged to exercise regularly. Prescripti on for 70 mg of alendronat e 1 tablet every week for 3 months was sent to [facility] in [place], [place]. Instructio ns on its usage were given. side effects and how tro take were discussed Asthma 659713489 J45.90 9 stable has flovent Chronic ob structive pulmonary disease 69051686 J44.9 stable on meds will continue COPDShe will continue on Spiriva and ProAir, refills provided today. Chronic pain 09935083 R5 2 will continue present opioid will need tox screen and f/u 3 months Chronic painShe will continue on long-actin g morphine and oxycodone. This note has been generated by Sanna SCHNEIDER and edited by Colby Hernandez, Quality Documentat ion Specialist . [id number] Vicky Bentley MD , [facility], [address] [place] [address] 05/31/2022 11:10:05 07/13/2022 07:27:52 Chronic obstructive pulmonary disease 19763129 J44.9 COPDShe will continue on Spiriva and ProAir, refills provided today. exacerbati on has improved Pneumonia 068616865 J18. 9 improved [id number] Vicky Bentley MD , [facility], [address] [place] [address] 06/28/2022 10:54:36 06/28/2022 11:56:03 Chronic obstructive pulmonary disease 88546319 J44.9 COPDShe will continue on Spiriva and ProAir, refills provided today. exacerbati on has improved Benign ess ential hypertension 5767330 I10 Displaceme nt of lumbar intervertebral disc without myelopathy 86810261 M51.26 chronic pain controlled with opioids stable dose and feels keeps her functional Gastroesop hageal reflux disease 117247087 K21.9 stable on omeprazole has tried to stop beofre will continue [id number] Thaddeus Jaquez MD , [facility], [address] [place] [address] 07/31/2022 16:45:25 07/31/2022 17:59:23 Acute exacerbation of chronic obstructive pulmonary disease 242007398 J44.1 start meds, call if not MUCH better in 1-2 days Cough 36765922 R05.9 [id number] Kady Esteves MD , [facility], [address] [place] [address] 08/03/2022 14:15:09 08/03/2022 14:38:31 Acute exacerbation of chronic obstructive pulmonary disease 804190564 J44.1 extend prednisone , taper slowlycont inue and finish abxcall if not improving [id number] Vicky Bentley MD , [facility], [address] [place] [address] 10/01/2022 10:56:26 10/01/2022 14:12:39 Long-term current use of drug therapy 881119375 Z79.899 Chronic ob structive pulmonary disease 24257552 J44.9 COPDShe will continue on Spiriva and ProAir, refills provided today. exacerbati on has improved [id number] Vicky Bentley MD , [facility], [address] [place] [address] 12/28/2022 07:55:47 12/29/2022 09:48:33 Opioid dependence 31212153 F11.20 for chronic back pain well controlled Long-term current use of drug therapy 742467395 Z79.899 Osteoporosis 57277842 M8 1.0 Osteoporos isShe will continue on vitamin B12 and Kenneth vitamins for women daily.Enco uraged to exercise regularly. Prescripti on for 70 mg of alendronat e 1 tablet every week for 3 months was [facility] to [facility] [place], [place]. Instructio ns on its usage were given. side effects and how tro take were discussed Encouraged to continue alendronat e once a week. Benign ess ential hypertension 4108208 I10 Chronic as thmatic bronchitis 759805021 J44.9 Explained in detail regarding the etiology [...] Madeline Nation, Quality Documentat ion Specialist . [id number] Vicky Bentley MD , [facility], [address] [place] [address] 03/18/2023 15:51:40 03/18/2023 16:48:34 Mild intermittent asthma 799898143 J45.20 (symptoms or bronchodil ator use at [...] with this plan. Active or passive immunization 055220353 Z23 Chronic ob structive pulmonary disease 23058174 J44.9 COPDShe will continue on Spiriva and [...] ns on usage were given. Opioid dependence 533016 00 F11.20 for chronic back pain well controlled Benign ess ential hypertension 8551605 I10 Hypertensi onContinue with current medical management . Chronic pain 78613719 R5 2 will continue present opioid will need tox screen and f/u 3 months Chronic painShe will continue on long-actin g morphine and oxycodone. This note has been generated by Sanna SCHNEIDER and edited by Colby Hernandez Quality Documentat ion Specialist . Chronic painRisks associated with long-term use of ibuprofen were thoroughly discussed. Prescripti on for ibuprofen was sent to the pharmacy. Instructio ns on usage were given. This note has been generated by Sanna SCHNEIDER and edited by Colby Hernandez Quality Documentat ion Specialist . [id number] Vicky Bentley MD , [facility], [address] [place] [address] 05/31/2023 11:25:50 05/31/2023 17:18:50 Adult health examination 457769774 Z00.00 see risk assessment and lifestyle change section Depression screening 171 735735 Z13.31 depression screening tool administer ed Screening for alcohol abuse 974055206 Z13.39 Alcohol use screening tool administer ed Chronic pain 51225946 R5 2 will continue present opioid will [...] by Isaiah Trejo Documentat ion Specialist . Long-term current use of opiate analgesic drug 2171501759 54927 Z79.891 chronic back pain that has required chronic opioids to remain functional Counseled by member of primary health care team 232700829 Z71.9 Today we discussed ways to reduce [...] daily aspirin. Chronic ob structive pulmonary disease 51150558 J44.9 COPDShe will continue on Spiriva and [...] pharmacy. Instructio ns on usage were given. [id number] Vicky Bentley MD , [facility], [address] [place] [address] 08/19/2023 09:09:05 08/19/2023 16:52:40 Screening mammography 71047868 Z12.31 Acute exac erbation of chronic obstructive pulmonary disease 790114649 J44.1 DyspneaExp lained in detail regarding the [...] Irving, Quality Documentat ion Specialist . Pneumonia 989101531 J18. 9 [id number] Vicky Bentley MD , [facility], [address] [place] [address] 09/11/2023 10:12:54 09/11/2023 11:06:30 Long-term current use of drug therapy 576782047 Z79.899 Chronic ob structive pulmonary disease 27894449 J44.9 COPDShe will continue on Spiriva and [...] usage were given. Benign ess ential hypertension 3278511 I10 Hypertensi onContinue with current medical management . see above Chronic pain 82760887 R5 2 will continue present opioid will [...] ns on usage were given. see above [id number] Mariza Martin LPN , [facility], [address] [place] [address] 11/11/2023 08:15:02 11/11/2023 14:00:42 Chronic obstructive pulmonary disease 64406130 J44.9 Pt with COPD with 3 days of acutely worsening SOB and SALEH with hypoxia. Pt was place on 2 L NC and O2 sat went up to 95%. When was removed, dropped down to 90% again. When pt first presented, O2 sat was 77% after ambulation into office.Dis cussed pt needs ER evaluation and tx and transport called. Hypoxia 272211658 G47.34 [id number] ISHAAN Espinoza , [facility], [address] [place] [address] 11/18/2023 10:34:29 11/19/2023 13:23:46 Chronic obstructive pulmonary disease 67509466 J44.9 continue w/ O2, discussed may be able to wean over the next 1-2 mos, goal O2 in low 90swill establish with pulmonolog ywill give 3 addl days prednisone given inspirator y and expiratory wheezing heard on exam todayconti nue w/ home inhalers and nebs prnf/u with worsening sx Hypoxemia 514503282 R09. 02 O2 sat around 90-93% at home on 2L RA at rest, 4L with movement Benign ess ential hypertension 7304664 I10 BP above goal todaypt has MM visit w/ PCP in 1 mos, will discuss then [id number] Vicky Bentley MD , [facility], [address] [place] [address] 12/16/2023 10:52:28 12/17/2023 12:22:58 Long-term current use of drug therapy 353801580 Z79.899 Osteoporosis 03746712 M8 1.0 Osteoporos isShe will continue on vitamin B12 and Kenneth vitamins for women daily.Enco uraged to exercise regularly. Prescripti on for 70 mg of alendronat e 1 tablet every week for 3 months was sent to [facility] in [place], [place]. Instructio ns on its usage were given. side effects and how tro take were discussed Encouraged to continue alendronat e once a week. Osteoporanthony Macario prescripti on refill for her osteoporos is medication has been provided. This note has been generated by Sanna SCHNEIDER and edited by Marianela Irving, Quality Documentat ion Specialist . Chronic ob structive pulmonary disease 78972933 J44.9 COPDShe will continue on Spiriva and [...] pharmacy. Instructio ns on usage were given. [id number] Vicky Bentley MD , [facility], [address] [place] [address] 04/09/2024 10:40:58 04/15/2024 11:14:01 Chronic pain 50673054 R52 will continue present opioid will need [...] Long-term current use of opiate analgesic drug 4982223573 06186 Z79.891 chronic back pain that has required chronic opioids to remain functional Long-term current use of drug therapy 589818272 Z79.899 Chronic ob structive pulmonary disease 15469487 J44.9 continue w/ O2, discussed may be able to wean over the next 1-2 mos, goal O2 in low 90swill establish with pulmonolog ywill give 3 addl days prednisone given inspirator y and expiratory wheezing heard on exam todayconti nue w/ home inhalers and nebs prnf/u with worsening sx Hypoxemia 323221573 R09. 02 O2 sat around 95 on ra has discontiju ed oxygen Benign ess ential hypertension 2475991 I10 BP at goal Osteoporosis [id number] M8 1.0 Osteoporos isShe will continue on vitamin B12 and Kenneth vitamins for women daily.Enco uraged to exercise regularly. Prescripti on for 70 mg of alendronat e 1 tablet every week for 3 months was [facility] to [facility] [place], [place]. Instructio ns on its usage were given. side effects and how tro take were discussed Encouraged to continue alendronat e once a week. Osteoporos iscontinue alendronat e tolerating well This note has been generated by Sanna SCHNEIDER and edited by Marianela Irving, Quality Documentat ion Specialist . [id number] Vicky Bentley MD , [facility], [address] [place] [address] 06/05/2024 11:18:08 06/09/2024 19:21:43 Adult health examination [id number] Z00.00 see risk assessment and lifestyle change section Depression screening 171 [id number] Z13.31 depression screening tool administer ed Screening for alcohol abuse [id number] Z13.39 Alcohol use screening tool administer ed Screening for malignant neoplasm of colon 943866976 Z12.11 Referral for a DIRECT booked colonoscop y. This patient is a healthy ASA Class 1 or 2 patient (only mild systemic disease), or a STABLE, well controlled insulin dependent diabetic. They do not have serious cardiac disease ie TX/angiopl asty within 1 year, symptomati c CHF; renal failure with CKD 4 or 5; take Coumadin, Plavix, Aggrenox, etc. Asthma [id number] J45.90 9 stable has flovent Benign ess ential hypertension 7439967 I10 BP at goal Chronic ob structive pulmonary disease 67453950 J44.9 continue w/ O2, discussed may be able to wean over the next 1-2 mos, goal O2 in low 90swill establish with pulmonolog ywill give 3 addl days prednisone given inspirator y and expiratory wheezing heard on exam todayconti nue w/ home inhalers and nebs prnf/u with worsening sx Chronic pain 93935021 R5 2 will continue present opioid will [...] usage were given. see above Opioid dependence 597417 00 F11.20 for chronic back pain well controlled Counseled by member of primary health care team [id number] Z71.9 Today we discussed ways to reduce [...] practition er may recommend taking daily aspirin. [id number] DO JONNY SILVESTRE, [facility], [address] [place] [address] 07/14/2024 13:48:47 07/16/2024 09:03:17 Chronic obstructive pulmonary disease 93773436 J44.9 Chronic Obstructiv e Pulmonary Disease (COPD)Rece [...] Name 11/18/2023 2 ( - INDEMNITY) Bernie Oh [id number] Bernie Oh 11/18/2023 1 MEDICARE B-[place]: [employer] Bernie Oh [id number] Bernie Gómez Joanides 12/16/2023 2 ( - INDEMNITY) Bernie Gómez Francydes [id number] Bernie Gómez Joanides 12/16/2023 1 MEDICARE B-[place]: [facility] Bernie Gómez Francydes [id number] Bernie Gómez Joanides 04/09/2024 2 ( - INDEMNITY) Bernie Gómez Lyricanides [id number] Bernie Gómez Joanides 04/09/2024 1 MEDICARE B-[place]: [facility] Bernie Gómez Lyricanides [id number] Bernie Gómez Joanides 06/05/2024 2 ( - INDEMNITY) Bernie Gómez Francydes [id number] Bernie Gómez Joanides 06/05/2024 1 MEDICARE B-MA: [facility] Bernie Gómez Lyricanides [id number] Bernie Gómez Joanides 07/14/2024 2 ( - INDEMNITY) Bernie Gómez Francydes [id number] Bernie Gómez Joanides 07/14/2024 1 MEDICARE B-MA: [facility] Bernie Gómez Adriano [id number] Bernie Gómez Adriano Notes Date Note Type Note Provider Name and Address Organization Details Recorded Time 4 text/html PT w/ pmhx sig for COPD, HTN, asthma, HLD, GERD, depression, opioid dependence presenting for inpatient f/u appt. here w/ Jessie Pt was admitted to [facility] 11/11/23 - 11/15/23 for hypoxemia 2/2 influenza.was [...] that time Dx influenza. Oxygen prescribed through [facility]. ? E Commerce Strategist referral. Records requested. using albuterol once in amspiriva respimat 1 puff BIDwixela BIDnebulizer has done twice over the weekend she and her love cruises, go about once per monthballroom dancewalk 5 miles every morning at the mall Karly Scott, [address], [place], [phone], [facility] 11/18/2023 12:10:58 4 text/html MM History of [...] She has a scheduled appointment with her hspt tutor on 12/18/2023. Her hspt tutor has prescribed a longer course of prednisone, [...] normal range.Mammogram was normal. Vicky Bentley MD [address] [place] [address], [phone], [facility] 12/18/2023 20:35:59 4 text/html MMThe patient is [...] lose weight and has consulted with a hspt tutor. Her diet includes minimal consumption of bread [...] no trouble taking that. Vicky Bentley MD [address] [place] [address], [phone], [facility] 04/09/2024 12:22:52 4 text/html Physical Exam/FemaleReported bypatient.PHAPatient [...] history of COVID-19 infection. Vicky Bentley MD [address] [place] [address], [phone], [facility] 06/06/2024 19:43:27 4 text/html 07/14/24- Pt here [...] stopped drinking diet Pepsi. KLEBER ALCANTAR, DO [address] [place] [address], [phone], [facility] 07/16/2024 08:15:23 OBGyn Episode No OBEpisode recorded.
== END 2024-10-30 10:28 | disposition home or self-care (01) ==
PROVIDERS: PCP Family Medicine; Visit Provider Nurse Practitioner Family
DX: J44.1 Chronic obstructive pulmonary disease with (acute) exacerbation (principal); R91.1 Solitary pulmonary nodule; Z87.09 Personal history of other diseases of the respiratory system
CPT/HCPCS: 99214

== ENCOUNTER → 2024-10-30 09:54 | Outpatient (BNVA) | payer MEDICARE, OTHER, SELFPAY | PROVIDERS: PCP Family Medicine; Visit Provider Nurse Practitioner Family | DX: J44.1 Chronic obstructive pulmonary disease with (acute) exacerbation (principal); R91.1 Solitary pulmonary nodule; Z87.09 Personal history of other diseases of the respiratory system | CPT/HCPCS: 99212 ==

== ENCOUNTER 2024-12-14 10:44 | Outpatient (REF) | payer MEDICARE, OTHER, SELFPAY ==
--- NOTE | ~2024-12-14 | CT_ITS ---
CLINICAL HISTORY: R91.1 - Solitary pulmonary nodule CT chest without contrast Comparison: CT/IL/SR - CT CHEST WO IV CON - 01/21/24 12:40 EDT Findings: The heart is normal size. The visualized thyroid and mediastinum are unremarkable. There is a new 9 mm nodular focus within the right upper lobe on image 27. There are several unchanged 2 mm nodules, for example a 2 mm left upper lobe nodule on image 73. There is moderately severe pulmonary emphysema. There are linear and bandlike foci of atelectasis and/or scarring within the bilateral lower lungs. No consolidation or pleural effusion. The visualized upper abdomen is unremarkable. There is a chronic healed fracture of the sternum. There is no acute displaced fracture. IMPRESSION: 1. There is a new 9 mm nodular focus within the right upper lobe. Recommend three-month CT follow-up. 2. Moderately severe pulmonary emphysema. This document has been electronically signed by: Saida Rizzo MD on 12/16/2024 13:09:14
== END 2024-12-14 10:45 | disposition home or self-care (01) ==
LOC: HO.CT 10:44
PROVIDERS: PCP Family Medicine; Visit Provider Nurse Practitioner Family
DX: R91.1 Solitary pulmonary nodule (principal)
CPT/HCPCS: 71250

== ENCOUNTER → 2024-12-14 10:48 | Outpatient (BNV) | payer MEDICARE, OTHER, SELFPAY | PROVIDERS: PCP Family Medicine; Visit Provider Radiology Diagnostic Radiology | DX: R91.1 Solitary pulmonary nodule (principal); J43.8 Other emphysema | CPT/HCPCS: 71250 ==

== ENCOUNTER 2024-12-25 10:30 | Outpatient (AMB) | payer MEDICARE, OTHER, SELFPAY ==
[2024-12-25 10:37] VITALS: BP 140/70; PULSE 80; O2SAT 94; BMI 26.4
--- NOTE | 2024-12-25 10:37 | A.OFFVIS_ITS ---
Vital Signs 12/25/24 10:37 Height 5 ft 4 in Weight 154 lb BMI 26.4 BP 140/70 H Blood Pressure Location Lt brachial Position Sitting Pulse 80 Pulse Source Pulse Oximeter Pulse Oximetry (%) 94 Oxygen Delivery Method Nasal Cannula Oxygen Flow Rate 3 Intake Visit Reasons: COPD Enamel Sprayer Required: No Ground Support Equipment Mechanic: Ground Support Equipment Mechanic offered & declined Accompanied by: Spouse Allergies No Known Allergies Allergy (Verified 12/25/24 10:41) Medication List - Last Reconciled 12/25/24 by Nany Jones LPN albuterol sulfate 90 mcg/actuation 2 puffs inhalation Q4H PRN alendronate 70 mg PO MO amlodipine 10 mg PO DAILY nutcjiaocy-ihmtwpqn-vllwnuguoo 160-9-4.8 mcg/actuation (Breztri Aerosphere) 2 inhalations inhalation BID docusate sodium 100 mg PO DAILY flunisolide 1 spray intranasal BID fluticasone propionate 50 mcg/actuation (Flonase Allergy Relief) 2 sprays intranasal BEDTIME hydrochlorothiazide 12.5 mg PO DAILY ibuprofen 800 mg PO TID PRN ipratropium-albuterol 0.5 mg-3 mg(2.5 mg base)/3 mL 3 mL inhalation QID PRN morphine ER 15 mg PO BID multivitamin 1 tab PO DAILY naloxone 0.4 mg subcut Q3M PRN oxycodone 10 mg PO QID PRN roflumilast (Daliresp) 500 mcg PO DAILY HPI HPI COPD: Details: Bernie is a pleasant 69 year old female, former smoker with 30 pack year history, quit 18 yrs ago, with underlying severe COPD on supplemental oxygen 3L with exertion, asthma and h/o acute respiratory failure with hypoxemia 11/2023 and 06/2024. She reports moderate control of respiratory symptoms using Breztri, DuoNeb, Acapella valve and Daliresp. She continues to report intermittent dyspne a, wheezing as well as productive cough with yellow sputum which has been present for 2-3 weeks. She denies fevers, chills or sick contacts. She continues to be active walking 3-4 miles per day using 3L of supplemental oxygen with exertion and using 2L NOC. She has been checking oxygen saturation frequently, noting >92%. She does note if she is resting she will take off supplemental oxygen, monitoring her O2 which stays around 93-95% on room air. She denies any visits to urgent care or hospitalizations related to respiratory distress since the last visit. [facility] Medical History COPD (chronic obstructive pulmonary disease) Opioid dependence Chronic low back pain Pulmonary nodule Social History Household Members: Spouse Housing: House Do you presently have visiting nurse or other home services: No Patient Tobacco Use Status: Former Tobacco user Tobacco use type: Cigarette Cigarette Packs Per Day: 1 Years Smoked: 30 service: No Current occupational status: retired Review of Systems Const Denies chills, Denies excessive sweating, Denies fever(s), Denies headache(s) and Denies night sweats Eyes Denies dry eyes, Denies irritation and Denies itchy eyes ENT Reports Normal hearing present, Denies headache(s), Denies nasal congestion, Denies nasal discharge, Denies post nasal drip and Denies sore throat Card Denies chest pain, Denies chest pain at rest, Denies chest pain with activity, Denies claudication, Denies leg edema, Reports dyspnea on exertion, Denies orthopnea and Denies paroxysmal nocturnal dyspnea Resp Reports change in phlegm color, Reports chest congestion, Reports cough, Denies hemoptysis, Denies pain on inspiration, Denies pain with cough, Reports dyspnea on exertion, Denies stridor and Reports wheezing Musc Denies myalgias Neuro Reports Normal hearing present and Denies headache(s) Endo Denies excessive sweating Miguel/Lymph Denies lymphadenopathy Aller/Immun Denies itchy eyes, Denies seasonal rhinorrhea and Reports wheezing Physical Exam Vital Signs: Last Vital Signs Pulse 80 12/25/24 10:37 BP 140/70 H 12/25/24 10:37 Pulse Ox 94 12/25/24 10:37 Oxygen Delivery Method Nasal Cannula 12/25/24 10:37 Oxygen Flow Rate 3 12/25/24 10:37 BMI result Body Mass Index 26.4 Const General: cooperative, no acute distress, well developed and alert Orientation/consciousness: patient oriented x3 Limitations: no limitations HEENT Head: Yes normal to inspection, Yes normocephalic and Yes atraumatic Ears: hearing grossly normal bilaterally and external ears normal Eyes General: appearance normal, both eyes and all related structures Eyelids: Yes eyelids normal Sclerae: sclerae normal EOM: EOMs intact bilaterally Neck Neck: Yes normal visual inspection and Yes no lymphadenopathy Lymphatic: no lymphadenopathy noted Chest Chest palpation & inspection: normal inspection of the chest Resp Effort & Inspection: normal respiratory effort, able to speak in complete sentences, no stridor, not tachypneic, no tripod positioning and no use of accessory muscles Auscultation: wheezes and diminished lung sounds Cardio Jugular venous distension: no JVD Rate: regular rate Rhythm: regular rhythm Skin Other: warm, dry General skin exam: no rashes or lesions noted Neuro General: patient oriented x3 Cranial nerves: Yes Normal hearing present Cognition (Neuro): normal cognition Gait exam (Neuro): Normal gait present Extrem General: Yes normal to inspection, Yes capillary refill normal, Yes no clubbing, cyanosis or edema and Yes no pedal edema Psych Appearance: grossly normal and well kempt Speech and movement: Normal speech and movement present and Clear speech present Affect: normal affect Attitude: cooperative Thought process: Normal thought process present Thought content: Normal thought content present Insight: Good insight present (Psych) Judgement: Good judgement present (Psych) Results Reviewed Results Reviewed: [address] [address] [address] Scan Report Signed Patient: Bernie Oh MR#: [id number] : 1955 Acct:[id number] Age/Sex: 69 / F ADM Date: 12/14/24 Loc: HO.CT Attending Dr: Maira Fuller NP Ordering Physician: Maira Fuller NP Date of Service: 12/14/24 Procedure(s): CT chest wo IV con Accession Number(s): [id number] cc: Lonny Bentley MD; Maira Fuller NP~ Report Number: [id number]: Total DLP = 139.00 mGy-cm CLINICAL HISTORY: R91.1 - Solitary pulmonary nodule CT chest without contrast Comparison: CT/ND/SR - CT CHEST WO IV CON - 01/21/24 12:40 EDT Findings: The heart is normal size. The visualized thyroid and mediastinum are unremarkable. There is a new 9 mm nodular focus within the right upper lobe on image 27. There are several unchanged 2 mm nodules, for example a 2 mm left upper lobe nodule on image 73. There is moderately severe pulmonary emphysema. There are linear and bandlike foci of atelectasis and/or scarring within the bilateral lower lungs. No consolidation or pleural effusion. The visualized upper abdomen is unremarkable. There is a chronic healed fracture of the sternum. There is no acute displaced fracture. IMPRESSION: 1. There is a new 9 mm nodular focus within the right upper lobe. Recommend three-month CT follow-up. 2. Moderately severe pulmonary emphysema. This document has been electronically signed by: Saida Rizzo MD on 12/16/2024 13:09:14 Dictated By: Saida Rizzo MD Signed By: <Electronically signed by Saida Rizzo MD in OV> 12/16/24 1309 DD/ 1309 TD/TT: 12/16/241308 Mmd Unit Teacher: Assessment & Plan Assessment & Plan (1) COPD (chronic obstructive pulmonary disease): Code(s): J44.9 - Chronic obstructive pulmonary disease, unspecified Category: Medical Qualifiers: COPD type: COPD with acute exacerbation Qualified Code(s): J44.1 - Chronic obstructive pulmonary disease with (acute) exacerbation (2) Pulmonary nodule: Code(s): R91.1 - Solitary pulmonary nodule Category: Medical (3) History of acute respiratory failure: Code(s): Z87.09 - Personal history of other diseases of the respiratory system Category: Medical Plan Encouraged to continue current regimen and continue to use supplemental oxygen with exertion 2-3L, maintaining O2 saturation >92% and 2.5L NOC. Will treat exacerbation with prednisone and doxycycline. Side effects reviewed. She is aware to call if symptoms do not improve. We discussed potential sleep study as prior overnight oximetry revealed 5 oxygen desaturation events per hour however patient declined. Prior chest ct revealed multiple pulmonary nodules, <2mm\, repeat chest CT revealed new 9mm RUL nodule. Will repeat in 3 months to assess stability. Patient on Daliresp, discussed repeating liver fx labs, however she states they were just performed by PCP, will obtain. If unable, orders placed to obtain. All questions were answered and patient is in agreement of plan. Will follow-up to review chest CT results or sooner if needed. Orders: Orders Liver Panel 12/25/24 Z01.818 - Encounter for other preprocedural examination CT chest wo IV con 10 Weeks R91.1 - Solitary pulmonary nodule Medications: New prednisone see taper instructions; 40 mg Daily x3 days, 30 mg daily x3 days, 20 mg daily x3 days, 10 mg daily x3 days 10 mg PO DIRECTED 30 tabs 0RF doxycycline hyclate 100 mg PO BID 14 caps 0RF Coding Level of Care Code Est Pt Level 4 (46520) Diagnoses Chronic obstructive pulmonary disease with acute exacerbation J44.1 COPD type: COPD with acute exacerbation Pulmonary nodule R91.1 History of acute respiratory failure Z87.09
== END 2024-12-25 11:23 | disposition home or self-care (01) ==
LOC: HO.HPSW 10:30
PROVIDERS: PCP Family Medicine; Visit Provider Nurse Practitioner Family
DX: J44.1 Chronic obstructive pulmonary disease with (acute) exacerbation (principal); R91.1 Solitary pulmonary nodule; Z87.09 Personal history of other diseases of the respiratory system
CPT/HCPCS: 99214

== ENCOUNTER → 2024-12-25 10:30 | Outpatient (BNVA) | payer MEDICARE, OTHER, SELFPAY | PROVIDERS: PCP Family Medicine; Visit Provider Nurse Practitioner Family | DX: J44.1 Chronic obstructive pulmonary disease with (acute) exacerbation (principal); R91.1 Solitary pulmonary nodule; Z87.09 Personal history of other diseases of the respiratory system; Z99.81 Dependence on supplemental oxygen; Z87.891 Personal history of nicotine dependence | CPT/HCPCS: 99212 ==

== ENCOUNTER 2025-03-05 05:50 | Emergency (ER) | payer MEDICARE, OTHER, SELFPAY ==
--- NOTE | ~2025-03-05 | XR_ITS ---
CLINICAL HISTORY: pain s p fall 4 view right wrist Comparison: None provided Findings: There is a nondisplaced fracture of the distal radial metaphysis. There is an ulnar styloid fracture of indeterminate age. No significant arthritic change or erosions. No radiopaque foreign body. IMPRESSION: 1. There is a nondisplaced fracture of the distal radial metaphysis. 2. There is an ulnar styloid fracture of indeterminate age. This document has been electronically signed by: Norberto De Paz MD on 03/05/2025 07:01:02
[2025-03-05 05:53] VITALS: BP 144/75; PULSE 103; RESP 18; TEMP 36.2; O2SAT 92; BMI 25.8
--- NOTE | 2025-03-05 07:34 | PC.NURSE ---
R dorsal hand and lateral wrist ecchymotic/swollen; pt's arm elevated on a pillow and ice pack applied; strong, palpable radial pulses and brisk cap refill all digits; awaiting provider
[2025-03-05 08:11] VITALS: BP 142/76; PULSE 100; RESP 18; O2SAT 84
[2025-03-05 08:17] VITALS: PULSE 94; O2SAT 93
--- NOTE | 2025-03-05 08:28 | PC.NURSE ---
Pt has chronic COPD; RADHA@ on RA 84%; pt placedf on 2 ltr NC; SAO2 93% at this time; pt denies any acute SOB currently
--- NOTE | 2025-03-05 08:47 | ED.EXTPRO ---
HPI - Extremity Problem General Chief complaint: Extremity Injury, Upper Stated complaint: right wrist injury due to a fall Time Seen by Provider: 03/05/25 08:46 Source: patient Mode of arrival: ambulatory Limitations: no limitations History of Present Illness ED Provider: JOSE EVERETT PA-C HPI Narrative: 69 year old female, left hand dominant, pmhx significant COPD on 2L NC at baseline presents to the ED today for evaluation of right wrist pain s/p mechanical fall last night. She reports tripping over a piece of wood out in her yard, causing her to fall backward and catch her self with her right hand. Denies head strike or LOC. Denies any symptoms preceding the fall. Reports immediate pain to right wrist. No radiation of pain. No difficulty with wrist or digit range of motion. Denies any numbness/tingling/weakness of the extremity. She takes Percocet at baseline, took this around 0500 this morning with some improvement in her pain. Related Data Home Medications ?Medication ?Instructions ?Recorded ?Confirmed hydrochlorothiazide 12.5 mg tablet 12.5 mg PO DAILY 05/21/22 12/25/24 morphine 15 mg tablet,extended 15 mg PO BID 05/21/22 12/25/24 release oxycodone 10 mg tablet 10 mg PO QID PRN Pain, Moderate 05/21/22 12/25/24 albuterol sulfate 90 mcg/actuation 2 puff inhalation Q4H PRN 11/11/23 12/25/24 aerosol inhaler shortness of breath or wheezing alendronate 70 mg tablet 70 mg PO MO 11/11/23 12/25/24 amlodipine 10 mg tablet 10 mg PO DAILY 11/11/23 12/25/24 docusate sodium 100 mg capsule 100 mg PO DAILY 11/11/23 12/25/24 ibuprofen 800 mg tablet 800 mg PO TID PRN Pain 11/11/23 12/25/24 multivitamin 1 tab PO DAILY 11/11/23 12/25/24 naloxone 0.4 mg/mL injection 0.4 mg subcut Q3M PRN overdose 11/11/23 12/25/24 solution Previous Rx's ?Medication ?Instructions ?Recorded budesonide 160 mcg-glycopyr 9 2 inh inhalation BID #3 ea 10/20/24 mcg-formot 4.8 mcg/actuation HFA inhaler (Breztri Aerosphere) roflumilast 500 mcg tablet 500 mcg PO DAILY #90 tabs 10/20/24 (Daliresp) flunisolide 25 mcg (0.025 %) nasal 1 spray intranasal BID #25 mL 11/13/24 spray doxycycline hyclate 100 mg capsule 100 mg PO BID #14 caps 12/25/24 prednisone 10 mg tablet 10 mg PO DIRECTED #30 tabs 12/25/24 ipratropium 0.5 mg-albuterol 3 mg 3 ml inhalation QID PRN Wheezing 01/05/25 (2.5 mg base)/3 mL nebulization #180 mL soln fluticasone propionate 50 2 spray intranasal BEDTIME #16 02/24/25 mcg/actuation nasal grams spray,suspension Allergies Allergy/AdvReac Type Severity Reaction Status Date / Time No Known Allergies Allergy Verified 03/05/25 05:58 Review of Systems Review of Systems: Constitutional: No fever, chills, fatigue, night sweats, weight changes ENT/Mouth: No ear pain, hearing loss, nasal congestion, sinus pain, rhinorrhea, sore throat Eyes: No eye pain, swelling, redness, vision changes, discharge Cardio: No chest pain, palpitations, SALEH, orthopnea, peripheral edema Pulm: No SOB, cough, sputum, wheezing, dyspnea, hemoptysis GI: No nausea, vomiting, hematemesis, abdominal pain, diarrhea, constipation, hematochezia, melena : No irregular bleeding, dysuria, frequency, urgency, hesitancy, hematuria, flank pain, urinary flow changes, urinary incontinence or retention MSK: No back pain, neck pain, joint pain, myalgias, +right wrist pain Skin: No lesions, rashes Neuro: No weakness, numbness, paresthesias, LOC, dizziness, headache Psych: No anxiety/panic, depression, SI/HI, AH/VH All other systems reviewed and are negative. [facility] Past Medical History Attestation statement: The following information was validated with the patient. Source: old records reviewed and nursing notes reviewed Medical History COPD (chronic obstructive pulmonary disease) Opioid dependence Chronic low back pain Pulmonary nodule Social History Social History Household Members: Spouse Housing: House Do you presently have visiting nurse or other home services: No Patient Tobacco Use Status: Former Tobacco user Tobacco use type: Cigarette Cigarette Packs Per Day: 1 Years Smoked: 30 Smoked in Last 30 Days: No Any prior treatment program specific to substance use: No Advance Directives: Yes Advance Directives Information Provided: Yes Advance Directives on File: No service: No Current occupational status: retired Physical Exam Vital Signs: Vital Signs: Last Vital Signs Temp 97.2 F 03/05/25 05:53 Pulse 94 03/05/25 08:17 Resp 18 03/05/25 08:11 BP 142/76 H 03/05/25 08:11 Pulse Ox 94 03/05/25 08:52 O2 Del Method Nasal Cannula 03/05/25 08:52 O2 Flow Rate 2 03/05/25 08:52 BMI result Body Mass Index 25.8 hypertensive, satting 93% on 2L NC at baseline General: Well appearing, in no acute distress. Skin: Warm, dry, intact. No rashes or lesions. Head: Normocephalic, atraumatic. EENT: Hearing is intact b/l. Conjunctiva clear. Sclera is anicteric. PERRLA. EOM intact. Moist mucous membranes.? Neck: Supple without LAD Cardiac: Chest wall symmetric. RRR Lungs: Normal respiratory effort without accessory muscle use. CTA bilaterally. No rales, rhonchi, or wheezes.? Abdomen: Soft, non-tender, non-distended. No rebound tenderness or guarding. Positive BS x4. Back: No midline spinous or paraspinal tenderness. No step off deformity. Ext: + right wrist with a minimal swelling, no obvious deformity. Full ROM intact to wrist with pain on flexion/extension. Strong radial pulse intact. Able to move all digits. Finger strength intact. Accordion Tuner strength intact. Sensation intact. Neuro: AOx3. Normal speech. Strength 5/5 intact throughout. Ambulating with steady gait. Psych: Appropriate mood and affect. Responds appropriately to questions. Course Course Course Narrative: xrs right wrist showing distal radial fracture and ulnar styloid fracture of indeterminate age. Patient informed of results. Medicated with Toradol. She took Percocet prior to arrival. Patient placed in sugar-tong splint. Tolerated well. Assisted by my student Jennifer. CMS intact distally after splinting. Placed in sling for comfort. Advised to follow up with ortho outpatient. Referral provided. Patient has remained stable throughout ED visit today. Discussed worrisome signs and symptoms and when to return to the ED. All questions answered at this time. Patient is agreeable with disposition and stable for discharge. Medications Administered Discontinued Medications Generic Name Dose Route Start Last Admin Trade Name Marie PRN Reason Stop Dose Admin Ketorolac Tromethamine 30 mg 03/05/25 08:52 03/05/25 09:07 Ketorolac Tromethamine 30 Mg/Ml Vial IM 03/05/25 08:53 30 mg ONCE ONE Administration Medical Decision Making Medical Decision Making MDM Narrative: 69 year old female, left hand dominant, pmhx significant COPD on 2L NC at baseline presents to the ED today for evaluation of right wrist pain s/p mechanical fall last night. hypertensive, satting 94% on 2L NC, her baseline. vitals are otherwise wnl. she is well appearing and in NAD. on exam, right wrist with a minimal swelling, no obvious deformity. Full ROM intact to wrist with pain on flexion/extension. Strong radial pulse intact. Able to move all digits. Finger strength intact. Accordion Tuner strength intact. Sensation intact. Differential diagnosis includes contusion, fracture, dislocation. Unlikely NV compromise, threat to limb, compartment syndrome. Plan for xrays, pain control, splinting, re-eval. Differential Diagnosis Differential Diagnoses: The differential diagnosis associated with the presentation includes as above. Admission/Observation not indicated. Independent Interpretation I performed an independent interpretation of an: Plain X-Ray Interpretation: xr right wrist showing distal radial fracture, non displaced Radiology Impression Discussion of test interpretation with radiology: I have reviewed the radiologist's reading. Radiologist Impression: Date of Service: 03/05/25 Procedure(s): XR wrist RT 2V Accession Number(s): [id number] cc: Lonny Bentley MD; Generic ED Physician~ CLINICAL HISTORY: pain s p fall 4 view right wrist Comparison: None provided Findings: There is a nondisplaced fracture of the distal radial metaphysis. There is an ulnar styloid fracture of indeterminate age. No significant arthritic change or erosions. No radiopaque foreign body. IMPRESSION: 1. There is a nondisplaced fracture of the distal radial metaphysis. 2. There is an ulnar styloid fracture of indeterminate age. This document has been electronically signed by: Norberto De Paz MD on 03/05/2025 07:01:02 Independent Historian Clinical information obtained from an independent historian. History obtained from or confirmed by: Spouse () External Record Review External record reviewed: Inpatient record Prescription Management I considered prescription management with: Pain Medication Social Determinants Patient?s care significantly limited by Social Determinants of Health including: Other Social Determinant of Health Procedures Orthopedic Splinting/Casting Injury #1: Side: right Upper Extremity Injury Location: wrist Upper Extremity Immobilizer: sling/shoulder immobilizer and sugar tong splint Critical Care Time Critical Care Time Critical Care Time: No Discharge Plan Discharge Clinical Impression: Distal radial fracture, Fracture of ulnar styloid Patient Disposition: Home, Self-Care Instructions: Wrist Fracture in Adults (ED) Additional Instructions: You have been evaluated in the Emergency Department today for right wrist pain after a fall occurring yesterday. Your evaluation showed a fracture of your right wrist (radius). I have placed your wrist in a splint today. Avoid getting the splint wet. We have provided a sling for you to use while you heal. Please rest and elevate the affected area above heart level to minimize swelling. I recommend you take 600mg ibuprofen every 6 hours. You may continue your Percocet at home. Please follow-up with an orthopedic surgeon in 1 week. You have been provided with a referral. Call them to make an appointment, they will not call you. Return to the Emergency Department if you experience worsening pain, numbness, tingling, change of color in your fingers, or any other concerning symptoms. Prescriptions: No Action Breztri Aerosphere 160-9-4.8 mcg/actuation HFA aerosol inhaler 2 inh inhalation BID Qty: 3 0RF roflumilast [Daliresp] 500 mcg tablet 500 mcg PO DAILY Qty: 90 2RF flunisolide 25 mcg (0.025 %) spray,non-aerosol 1 spray intranasal BID Qty: 25 0RF ipratropium-albuterol 0.5 mg-3 mg(2.5 mg base)/3 mL solution for nebulization 3 ml INHALATION QID PRN (Reason: Wheezing) Qty: 180 3RF fluticasone propionate 50 mcg/actuation spray,suspension 2 spray intranasal BEDTIME Qty: 16 0RF morphine 15 mg Tablet Extended Release 15 mg PO BID hydrochlorothiazide 12.5 mg Tablet 12.5 mg PO DAILY oxycodone 10 mg Tablet 10 mg PO QID PRN (Reason: Pain, Moderate) multivitamin Tablet 1 tab PO DAILY ibuprofen 800 mg Tablet 800 mg PO TID PRN (Reason: Pain) naloxone 0.4 mg/mL Solution 0.4 mg SUBCUT Q3M PRN (Reason: overdose) Rx Instructions: NTExceed 10 mg total dose/episode alendronate 70 mg Tablet 70 mg PO MO Rx Instructions: on mondays amlodipine 10 mg Tablet 10 mg PO DAILY docusate sodium 100 mg Capsule 100 mg PO DAILY albuterol sulfate 90 mcg/actuation HFA aerosol inhaler 2 puff inhalation Q4H PRN (Reason: shortness of breath or wheezing) prednisone 10 mg tablet 10 mg PO DIRECTED Qty: 30 0RF Rx Instructions: see taper instructions; 40 mg Daily x3 days, 30 mg daily x3 days, 20 mg daily x3 days, 10 mg daily x3 days doxycycline hyclate 100 mg capsule 100 mg PO BID Qty: 14 0RF Referrals: [facility] [Provider Group] Referral Note: distal radius fracture Lonny Bentley MD [Primary Care Provider, Family Practice] Print Language: Moldovan
[2025-03-05 08:52] VITALS: O2SAT 94
[2025-03-05 10:26] VITALS: BP 142/65; PULSE 68; RESP 15; TEMP 36.5; O2SAT 94
[2025-03-05 10:32] VITALS: BP 142/65; PULSE 68; RESP 15; TEMP 36.5; O2SAT 94
== END 2025-03-05 10:32 | disposition home or self-care (01) ==
PROVIDERS: Emergency Provider Emergency Medicine Emergency Medical Services; PCP Family Medicine
DX: S52.611A Displaced fracture of right ulna styloid process, initial encounter for closed fracture (principal); S52.501A Unspecified fracture of the lower end of right radius, initial encounter for closed fracture; J44.9 Chronic obstructive pulmonary disease, unspecified; M25.531 Pain in right wrist; X58.XXXA Exposure to other specified factors, initial encounter; W01.0XXA Fall on same level from slipping, tripping and stumbling without subsequent striking against object, initial encounter; Z91.81 History of falling; Y93.9 Activity, unspecified; Y92.9 Unspecified place or not applicable; Y99.8 Other external cause status; Z99.81 Dependence on supplemental oxygen; Z79.899 Other long term (current) drug therapy; Z87.891 Personal history of nicotine dependence
CPT/HCPCS: 29125; 73100; 96372; 99284; J1885

== ENCOUNTER 2025-03-08 07:15 | Outpatient (REF) | payer MEDICARE, OTHER, SELFPAY ==
--- NOTE | ~2025-03-08 | CT_ITS ---
CLINICAL HISTORY: R91.1 - Solitary pulmonary nodule CT chest without contrast Comparison: 12/14/2024 Findings: The heart size is normal. The visualized thyroid and mediastinum are unremarkable. Smoking-related lung changes and scattered bilateral lung bandlike atelectasis/scarring. Interval decrease in size of apical segment right upper lobe lung nodule measuring up to 5 mm versus 8 mm previously (series 3 image 9). Additional stable both calcified and noncalcified 1-2 mm bilateral scattered lung nodules. No new lung nodule identified. The upper abdomen is unremarkable. No acute fractures. IMPRESSION: Interval decrease in size of apical segment right upper lobe lung nodule measuring up to 5 mm versus 8 mm previously. Low-dose CT follow-up in 6 months recommended. This document has been electronically signed by: Rosalind Wallace MD on 03/08/2025 13:31:18
--- OUTSIDE RECORDS SUMMARY | 2025-03-08 07:19 | XMS_ITS | Data Portability ---
Author Organization [facility], [facility] Address [address] [place] [address] Care Team Providers Care Outpatient Psychiatrist Name Role Phone VICKY BENTLEY Primary Care Provider NEIL JUDGE [employer] [facility] Segment Producer Assessment Encounter Date Assessment Date Assessment LastModified [...] available 04/09/2024 12:21:20 06/05/2024 06/05/2024 We completed you r Medicare Wellness exam today. This was an [...] cannot communicate your wishes yourself (severe illness, unconsciousness). We discussed having a completed Health Care [...] year is: elton Not available 06/06/2024 19:41:46 11/19/2024 11/19/2024 We reviewed your chronic medical conditions and updated your plan for management. Please review instructions below. We have discussed your personal goals and discussed how to reach your goals. Please reach out to us via the Portal or phone if you have questions about your chronic conditions or if you or your caregivers require assistance in meeting your goals. Please visit our website [employer] for more patient resources. As part of your care plan, we will help coordinate your ongoing medical needs, arrange for durable medical equipment, renew prescriptions and necessary prior authorizations, facilitate getting referrals and collaborating with specialist, referrals for VNA services. Assessment and Plan Chronic Obstructive Pulmonary Disease (COPD) Recent hospitalization for respiratory issues. Discussed portable oxygen concentrator for upcoming cruise. - Refill Breztri inhaler. - Continue current oxygen therapy regimen. - Consider trial of portable oxygen concentrator before purchase. Chronic Pain Management On long-acting morphine and oxycodone. Discussed risks of long-term Motrin use and suggested Tylenol as an alternative. - Refill morphine and oxycodone prescriptions. - Monitor for side effects of Motrin. - Consider using Tylenol for pain relief if effective. Hypertension Blood pressure well-controlled on amlodipine and hydrochlorothiazide. Discussed risks of long-term Motrin use. - Refill amlodipine and hydrochlorothiazide prescriptions. - Monitor blood pressure regularly. Osteoporosis On alendronate for management. - Refill alendronate prescription. Prediabetes Blood sugar levels borderline. Family history increases risk. Emphasized monitoring and potential progression to diabetes. - Order hemoglobin A1c test. - Monitor blood sugar levels regularly. Weight Management BMI is 25, not qualifying for weight loss medications. Discussed weight loss challenges, importance of reducing carbohydrate intake, and exercise benefits. - Encourage regular exercise. - Advise on reducing carbohydrate intake. - Monitor weight and dietary habits. General Health Maintenance Due for PC-20 pneumonia vaccine and COVID-19 booster. Emphasized importance of vaccinations. - Verify receipt of PC-20 vaccine with pharmacy. - Administer COVID-19 booster in December. Follow-up Scheduled for wellness visit in August. - Schedule follow-up appointment in August for wellness visit. - Advise to return sooner if any health issues develop. [email or web address] Not available 11/19/2024 19:30:00 Plan of Treatment Reminders Order Date Submit Date Provider Last Modified By Organization Details Last Modified Time Details Appointments LAB Follow-Up 2024 08:10A M [facility] Lab Not available Not available Not available Wellness Visit 30 2024 10:00A M Vicky Bentley MD Not available Not available Not available Lab HbA1c (hemoglob in A1c), blood 2024 025 [facility], [address] [place] [address], [address], 11/20/2024 09:38:52 drug screen, urine - oxycodone & morphine last intake 11/19/24 7am & 11/18/24 DS 1200am Temp 94F 2024 025 [facility], [address] [place] [address], [address], 11/23/2024 14:10:27 drug screen, urine - oxycodone & morphine Date and Time of Last Dose: 04/09/24 7:30 AM & 04/09/24 1am temp: 94F 2023 024 [facility], [address] [place] [address], [address], 04/10/2024 10:40:39 drug screen, urine - Oxycodone 6 am & Morphine 12 am 12/16/23 No Temp Recorded 2023 024 [facility], [address] [place] [address], [address], 12/17/2023 10:06:00 Referral None recorded. Procedures colonosco py procedure (PROC) [address] Gastroenter[facility]gy, [address] [place], [address], 06/09/2024 12:38:43 Surgeries None recorded. Imaging None recorded. Medication Orders alendrona te 70 mg tablet 2024 025 [facility], [address] [facility], [address], [place], [place], [id number], 11/19/2024 13:30:39 Breztri Aerospher e 160 mcg-9mcg- 4.8mcg/ac tuation HFA aerosol inhaler 2024 025 [facility] Whxp-Wu-Lnos [facility], [address] [facility], [address], [place], [place], [phone], 11/19/2024 13:28:10 hydrochlo rothiazid e 12.5 mg tablet 2024 025 [facility] Uvrm-Se-Fqgw [facility], [address] [facility], [facility], [place], [place], [id number], 11/19/2024 13:28:20 alendrona te 70 mg tablet 2023 024 [facility] Igat-Rw-Bosd [facility], [address] [facility], [facility], [place], [place], [id number], 04/09/2024 12:23:10 hydrochlo rothiazid e 12.5 mg tablet 2023 024 [facility] Jvgf-Vq-Lveh [facility], [address] [facility], [facility], [place], [place], [phone], 04/09/2024 12:23:11 Narcan 4 mg/actuat ion nasal spray 2023 024 [facility] Jopw-Nq-Mzmd [facility], [address] [facility], [facility], [place], [place], [id number], 04/09/2024 12:23:15 alendrona te 70 mg tablet 2023 024 [facility] Pvss-Vg-Wcfm [facility], [address] [facility], [facility], [place], [place], [id number], 12/16/2023 12:51:39 Patient TargetsNo targets recorded. Patient Instructions Encounter Date Encounter Id Patient Instructions Last Modified By Organization Details Last Modified Time 04/09/2024 [id number] My Health To Do List Specific Analgesia Plan: Continue present regimen Specific Goals for next visit increase exerciseThe patient is currently at their goal of safe, stable use of narcotic pain medication to improve their functioning in life. Since the last visit there has been no activity of concern: Patient today is at low risk for abuse of meds. Monitoring will include repeat UDS. Patients current goals of more activity were discussed with patient, unlikelihood of 100% reduction in pain made clear. Patient has read narcotics contract and understands the properties of narcotic medication. [email or web address] Not available 04/09/2024 11:06:03 06/05/2024 [id number] high blood pressure: care instructions [email or web address] Not available 06/06/2024 19:43:22 learning about high blood pressure [email or web address] Not available 06/06/2024 19:43:22 07/14/2024 [id number] I am aware of [facility] inpatient facility discharge medications, the medication list above has been reconciled with those medications and reflects my understanding of an up to date medication list for this patient. [email or web address] Not available 07/14/2024 14:30:48 11/19/2024 [id number] high blood pressure: care instructions [email or web address] Not available 11/19/2024 11:24:56 learning about high blood pressure [email or web address] Not available 11/19/2024 11:24:56 My Health To Do List Specific Analgesia Plan: Continue present regimen Specific Goals for next visit increase exerciseThe patient is currently at their goal of safe, stable use of narcotic pain medication to improve their functioning in life. Since the last visit there has been no activity of concern: Patient today is at low risk for abuse of meds. Monitoring will include repeat UDS. Patients current goals of more activity were discussed with patient, unlikelihood of 100% reduction in pain made clear. Patient has read narcotics contract and understands the properties of narcotic medication. [email or web address] Not available 11/19/2024 10:51:47 Reason for Referral None Reported. Results Created Date Observation Date Name Description Value Unit Range Abnormal Flag Note LastModifiedBy Organization Detail LastModifiedTime 12/16/19 24 12/17/2023 DRUG SCREE N-8, URINE , WITH CONFI RMATI ON GC/MS amphetamine NEG. negati ve Not Available [address], [address], 12/17/2023 10:06:00 12/16/19 24 12/17/2023 DRUG SCREE N-8, URINE , WITH CONFI RMATI ON GC/MS barbiturates NEG. negati ve Not Available [address], [address], 12/17/2023 10:06:00 12/16/19 24 12/17/2023 DRUG SCREE N-8, URINE , WITH CONFI RMATI ON GC/MS benzodiazepi ne NEG. negati ve Not Available [address], [address], 12/17/2023 10:06:00 12/16/19 24 12/17/2023 DRUG SCREE N-8, URINE , WITH CONFI RMATI ON GC/MS cocaine NEG. negati ve Not Available [address], [address], 12/17/2023 10:06:00 12/16/19 24 12/17/2023 DRUG SCREE N-8, URINE , WITH CONFI RMATI ON GC/MS opiates POS. negati ve GCMS= Sampl e sent to [facility] for confi rmati on by GC/MS . Not Available [address], [address], 12/17/2023 10:06:00 12/16/19 24 12/17/2023 DRUG SCREE N-8, URINE , WITH CONFI RMATI ON GC/MS methadone NEG. negati ve Not Available [address], [address], 12/17/2023 10:06:00 12/16/19 24 12/17/2023 DRUG SCREE [...] ng/ml Fenta nyl 1 ng/ml Not Available [address], [address], 12/17/2023 10:06:00 12/16/19 24 12/17/2023 DRUG SCREE N-8, URINE , WITH CONFI RMATI ON GC/MS oxycodone POS. negati ve GCMS= Sampl e sent to [facility] for confi rmati on by GC/MS . Not Available [address], [address], 12/17/2023 10:06:00 12/16/19 24 12/22/2023 DRUG TOX MONIT ORING OPIAT ES EXPAN DED QN, U codeine NEGATI VE NG/mL <50 See Note 1 Not Available [facility] [address], [address], 12/22/2023 11:07:59 12/16/19 24 12/22/2023 DRUG TOX MONIT ORING OPIAT ES EXPAN DED QN, U hydrocodone NEGATI VE NG/mL <50 See Note 1 Not Available [facility] [address], [address], 12/22/2023 11:07:59 12/16/19 24 12/22/2023 DRUG TOX MONIT ORING OPIAT ES EXPAN DED QN, U hydromorphon e NEGATI VE NG/mL <50 See Note 1 Not Available [facility] [address], [address], 12/22/2023 11:07:59 12/16/19 24 12/22/2023 DRUG TOX MONIT ORING OPIAT ES EXPAN DED QN, U morphine 4506 NG/mL <50 high See Note 1 Not Available [facility] [place] [facility] [address], [place], [address], 12/22/2023 11:07:59 12/16/19 24 12/22/2023 DRUG TOX MONIT ORING OPIAT ES EXPAN DED QN, U norhydrocodo ne NEGATI VE NG/mL <50 See Note 1 Not Available [facility] [place] [facility] [address], [place], [address], 12/22/2023 11:07:59 12/16/19 24 12/22/2023 DRUG TOX MONIT ORING OPIAT ES EXPAN DED QN, U noroxycodone 1671 NG/mL <50 high See Note 1 Not Available [facility] [place] [facility] [address], [place], [address], 12/22/2023 11:07:59 12/16/19 24 12/22/2023 DRUG TOX MONIT ORING OPIAT ES EXPAN DED QN, U oxycodone 1775 NG/mL <50 high See Note 1 Not Available [facility] [place] [facility] [address], [place], [address], 12/22/2023 11:07:59 12/16/19 24 12/22/2023 DRUG TOX MONIT ORING OPIAT ES EXPAN DED QN, U oxymorphone 2246 NG/mL <50 high See Note 1 Not Available [facility] [place] [facility] [address], [place], [address], 12/22/2023 11:07:59 12/16/19 24 12/22/2023 DRUG TOX [...] medic al condi tions . For aleida tansvetlana with inter preti ng these drug resul ts, pleas e conta ct a [facility] : [phone] ( [phone] ), M-F, 8am-6 pm EST. Not Available [facility] [address] [place] [address] B, [place], [address], 12/22/2023 11:07:59 03/19/20 24 03/23/2024 BASIC METAB OLIC PANEL glucose 105 mg/dL 70-100 high Not Available [address], [address], 03/23/2024 12:11:20 03/19/20 24 03/23/2024 BASIC METAB OLIC PANEL BUN 20 mg/dL 7-18 high Not Available [address], [address], 03/23/2024 12:11:20 03/19/20 24 03/23/2024 BASIC METAB OLIC PANEL creatinine 0.8 mg/dL 0.8-1. 3 Not Available [address], [address], 03/23/2024 12:11:20 03/19/20 24 03/23/2024 BASIC METAB OLIC PANEL B/C 25.0 ratio Not Available [address], [address], 03/23/2024 12:11:20 03/19/20 24 03/23/2024 BASIC METAB OLIC PANEL GFR >=60ML /MIN mL/mi n normal >=60m L/min - Latoya l or midly reduc ed <60mL /min- Decre ased kidne y funct ion <15mL /min - Kidne y failu re [facility] calcu lates estim [...] be used in pregn elvira. Not Available [address], [address], 03/23/2024 12:11:20 03/19/20 24 03/23/2024 BASIC METAB OLIC PANEL sodium 143 mmol/ L 136-14 5 Not Available [address], [address], 03/23/2024 12:11:20 03/19/20 24 03/23/2024 BASIC METAB OLIC PANEL potassium 4.0 mmol/ L 3.5-5. 1 Not Available [address], [address], 03/23/2024 12:11:20 03/19/20 24 03/23/2024 BASIC METAB OLIC PANEL chloride 100 mmol/ L 96-107 Not Available [address], [address], 03/23/2024 12:11:20 03/19/20 24 03/23/2024 BASIC METAB OLIC PANEL anion gap 10.5 5.0-15 .0 Not Available [address], [address], 03/23/2024 12:11:20 03/19/20 24 03/23/2024 BASIC METAB OLIC PANEL CO2 33 mmol/ L 21-32 high Not Available [address], [address], 03/23/2024 12:11:20 03/19/20 24 03/23/2024 BASIC METAB OLIC PANEL calcium 8.6 mg/dL 8.5-10 .3 Not Available [address], [address], 03/23/2024 12:11:20 03/19/20 24 03/23/2024 LIPID PANEL cholesterol 215 mg/dL <200 mg/dl Nhung able 200-2 39 mg/dl Borde rline High >240 mg/dl High Not Available [address], [address], 03/23/2024 12:11:21 03/19/20 24 03/23/2024 LIPID PANEL triglyceride s 95 mg/dL <150 mg/dL Latoya l 150-1 99 mg/dL Borde rline High 200-4 99 mg/dL High >500 mg/dL Very High Not Available [address], [address], 03/23/2024 12:11:21 03/19/20 24 03/23/2024 LIPID PANEL direct HDL 62 mg/dL <40 mg/dl - Major Risk for CHD >60 mg/dl - Negat ezequiel Risk for CHD Not Available [address], [address], 03/23/2024 12:11:21 03/19/20 24 03/23/2024 LDL - CALCU LATED LDL - calculated 134.0 RISK CATEG ORY LDL GOAL _ CHD or CHD Risk Equiv alent s <100 mg/dl (10-y ear risk >20%) 2+ Risk Facto rs <130 mg/dl (10-y ear risk <= 20%) 0-1 Risk Facto r <160 mg/dl [facility] all peopl e with 0-1 risk facto r have a 10 year risk <10%, thus 10 year risk asses ment in peopl e with 0-1 risk facto r is not nikkorosie kathy. Not Available [address], [address], 03/23/2024 12:11:22 04/09/20 24 04/10/2024 DRUG SCREE N-8, URINE , WITH CONFI RMATI ON GC/MS amphetamine NEG. negati ve Not Available [address], [address], 04/10/2024 10:40:39 04/09/20 24 04/10/2024 DRUG SCREE N-8, URINE , WITH CONFI RMATI ON GC/MS barbiturates NEG. negati ve Not Available [address], [address], 04/10/2024 10:40:39 04/09/20 24 04/10/2024 DRUG SCREE N-8, URINE , WITH CONFI RMATI ON GC/MS benzodiazepi ne NEG. negati ve Not Available [address], [address], 04/10/2024 10:40:39 04/09/20 24 04/10/2024 DRUG SCREE N-8, URINE , WITH CONFI RMATI ON GC/MS cocaine NEG. negati ve Not Available [address], [address], 04/10/2024 10:40:39 04/09/20 24 04/10/2024 DRUG SCREE N-8, URINE , WITH CONFI RMATI ON GC/MS opiates POS. negati ve GCOP= Urine sampl e [facility] to [facility] for confi rmati on of opiat es by GC/MS . Not Available [address], [address], 04/10/2024 10:40:39 04/09/20 24 04/10/2024 DRUG SCREE N-8, URINE , WITH CONFI RMATI ON GC/MS methadone NEG. negati ve Not Available [address], [address], 04/10/2024 10:40:39 04/09/20 24 04/10/2024 DRUG SCREE [...] ng/ml Fenta nyl 1 ng/ml Not Available [address], [address], 04/10/2024 10:40:39 04/09/20 24 04/10/2024 DRUG SCREE N-8, URINE , WITH CONFI RMATI ON GC/MS oxycodone POS. negati ve GCOP= Urine sampl e sent to [facility] for confi rmati on of opiat es by GC/MS . Not Available [address], [address], 04/10/2024 10:40:39 04/09/20 24 04/12/2024 DRUG TOX MONIT ORING OPIAT ES EXPAN DED QN, U codeine NEGATI VE NG/mL <50 See Note 1 Not Available [facility] [address] [place] [address], [place], [address], 04/12/2024 19:23:43 04/09/20 24 04/12/2024 DRUG TOX MONIT ORING OPIAT ES EXPAN DED QN, U hydrocodone NEGATI VE NG/mL <50 See Note 1 Not Available [facility] [place] [facility] [address], [place], [address], 04/12/2024 19:23:43 04/09/20 24 04/12/2024 DRUG TOX MONIT ORING OPIAT ES EXPAN DED QN, U hydromorphon e NEGATI VE NG/mL <50 See Note 1 Not Available [facility] [place] [facility] [address], [place], [address], 04/12/2024 19:23:43 04/09/20 24 04/12/2024 DRUG TOX MONIT ORING OPIAT ES EXPAN DED QN, U morphine 2105 NG/mL <50 high See Note 1 Not Available [facility] [place] [facility] [address], [place], [address], 04/12/2024 19:23:43 04/09/20 24 04/12/2024 DRUG TOX MONIT ORING OPIAT ES EXPAN DED QN, U norhydrocodo ne NEGATI VE NG/mL <50 See Note 1 Not Available [facility] [place] [facility] [address], [place], [address], 04/12/2024 19:23:43 04/09/20 24 04/12/2024 DRUG TOX MONIT ORING OPIAT ES EXPAN DED QN, U noroxycodone 491 NG/mL <50 high See Note 1 Not Available [facility] [place] [facility] [address], [place], [address], 04/12/2024 19:23:43 04/09/20 24 04/12/2024 DRUG TOX MONIT ORING OPIAT ES EXPAN DED QN, U oxycodone 561 NG/mL <50 high See Note 1 Not Available [facility] [place] [facility] [address], [place], [address], 04/12/2024 19:23:43 04/09/20 24 04/12/2024 DRUG TOX MONIT ORING OPIAT ES EXPAN DED QN, U oxymorphone 1533 NG/mL <50 high See Note 1 Not Available [facility] [place] [facility] [address], [place], [address], 04/12/2024 19:23:43 04/09/20 24 04/12/2024 DRUG TOX [...] alist : [phone] ( [phone] ), M-F, 8am-6 pm EST. Not Available [facility] [place] [facility] [address], [place], [address], 04/12/2024 19:23:43 11/20/19 25 11/20/2024 HGB A1C hemoglobin A1C 6.5 % 4.8-6. 0 high Goal: <7% in Patie nts with Diabe mata An A1c betwe en 5.7-6 .4% is ident ified as pre-d iabet es and sugge sts risk for progr essio n to diabe mata Two a1c value s of 6.5% or highe r is consi stent with a diagn osis of diabe mata but may need furth er confi rmati on Not Available [address], [address], 11/20/2024 09:38:52 11/20/19 25 11/20/2024 HGB A1C estimated average glucose 139.9 mg/dL Not Available [address], [address], 11/20/2024 09:38:52 11/20/19 25 11/23/2024 BASIC METAB OLIC PANEL glucose 113 mg/dL 70-100 high Not Available [address], [address], 11/23/2024 11:21:55 11/20/19 25 11/23/2024 BASIC METAB OLIC PANEL BUN 18 mg/dL 7-18 Not Available [address], [address], 11/23/2024 11:21:55 11/20/19 25 11/23/2024 BASIC METAB OLIC PANEL creatinine 0.8 mg/dL 0.8-1. 3 Not Available [address], [address], 11/23/2024 11:21:55 11/20/19 25 11/23/2024 BASIC METAB OLIC PANEL B/C 22.5 ratio Not Available [address], [address], 11/23/2024 11:21:55 11/20/19 25 11/23/2024 BASIC METAB OLIC PANEL GFR >=60ML /MIN [...] 2020) as recom juana d by the [employer] [facility] . eGFR is based on age, serum creat inine , and sex. CKD-E PI does not calcu late eGFR by race, does not apply to child kin (age <18 years ), and shoul d not be used in pregn elvira. Not Available [address], [address], 11/23/2024 11:21:55 11/20/19 25 11/23/2024 BASIC METAB OLIC PANEL sodium 143 mmol/ L 136-14 5 Not Available [address], [address], 11/23/2024 11:21:55 11/20/19 25 11/23/2024 BASIC METAB OLIC PANEL potassium 4.0 mmol/ L 3.5-5. 1 Not Available [address], [address], 11/23/2024 11:21:55 11/20/19 25 11/23/2024 BASIC METAB OLIC PANEL chloride 103 mmol/ L 96-107 Not Available [address], [address], 11/23/2024 11:21:55 11/20/19 25 11/23/2024 BASIC METAB OLIC PANEL anion gap 10.9 5.0-15 .0 Not Available [address], [address], 11/23/2024 11:21:55 11/20/19 25 11/23/2024 BASIC METAB OLIC PANEL CO2 29 mmol/ L 21-32 Not Available [address], [address], 11/23/2024 11:21:55 11/20/19 25 11/23/2024 BASIC METAB OLIC PANEL calcium 9.1 mg/dL 8.5-10 .3 Not Available [address], [address], 11/23/2024 11:21:55 11/20/1911/23/2024 LIPID PANEL cholesterol 223 mg/dL <200 mg/dl Nhung able 200-2 39 mg/dl Borde rline High >240 mg/dl High Not Available [address], [address], 11/23/2024 11:21:57 11/20/1911/23/2024 LIPID PANEL triglyceride s 139 mg/dL <150 mg/dL Latoya l 150-1 99 mg/dL Borde rline High 200-4 99 mg/dL High >500 mg/dL Very High Not Available [address], [address], 11/23/2024 11:21:57 11/20/1911/23/2024 LIPID PANEL direct HDL 65 mg/dL <40 mg/dl - Major Risk for CHD >60 mg/dl - Negat ezequiel Risk for CHD Not Available [address], [address], 11/23/2024 11:21:57 11/20/1911/23/2024 DIREC T LDL direct LDL 138 mg/dL RISK CATEG ORY LDL GOAL _ CHD or CHD Risk Equiv alent s <100 mg/dl (10-y ear risk >20%) 2+ Risk Facto rs <130 mg/dl (10-y ear risk <= 20%) 0-1 Risk Facto r <160 mg/[facility] with 0-1 risk facto r have a 10 year risk <10%, thus 10 year risk asses ment in peopl e with 0-1 risk facto r is not neces kathy. Not Available [address], [address], 11/23/2024 11:21:58 11/20/19 25 11/23/2024 DRUG SCREE N-8, URINE , WITH CONFI RMATI ON GC/MS amphetamine NEG. negati ve Not Available [address], [address], 11/23/2024 14:10:27 11/20/19 25 11/23/2024 DRUG SCREE N-8, URINE , WITH CONFI RMATI ON GC/MS barbiturates NEG. negati ve Not Available [address], [address], 11/23/2024 14:10:27 11/20/19 25 11/23/2024 DRUG SCREE N-8, URINE , WITH CONFI RMATI ON GC/MS benzodiazepi ne NEG. negati ve Not Available [address], [address], 11/23/2024 14:10:27 11/20/19 25 11/23/2024 DRUG SCREE N-8, URINE , WITH CONFI RMATI ON GC/MS cocaine NEG. negati ve Not Available [address], [address], 11/23/2024 14:10:27 11/20/19 25 11/23/2024 DRUG SCREE N-8, URINE , WITH CONFI RMATI ON GC/MS opiates POS. negati ve GCMS= Sampl e [facility] to [facility] confi rmati on by GC/MS . Not Available [address], [address], 11/23/2024 14:10:27 11/20/19 25 11/23/2024 DRUG SCREE N-8, URINE , WITH CONFI RMATI ON GC/MS methadone NEG. negati ve Not Available [address], [address], 11/23/2024 14:10:27 11/20/19 25 11/23/2024 DRUG SCREE N-8, URINE , WITH CONFI RMATI ON GC/MS fentanyl NEG. negati ve Syva EMIT II Limit s of Detec tion (cutt -off value s) [place] Expan d: Amphe tamin es: 1000 ng/ml Opiat es: 300 ng/ml Rica tuate s: 200 ng/ml Oxyco done 100 ng/ml Benzo diaze pines : 200 ng/ml Metha done 300 ng/ml Cocai ne: 300 ng/ml Fenta nyl 1 ng/ml Not Available [address], [address], 11/23/2024 14:10:27 11/20/19 25 11/23/2024 DRUG SCREE N-8, URINE , WITH CONFI RMATI ON GC/MS oxycodone POS. negati ve GCMS= Sampl e sent to [facility] for confi rmati on by GC/MS . Not Available [address], [address], 11/23/2024 14:10:27 11/20/19 25 11/25/2024 DRUG TOX MONIT ORING OPIAT ES EXPAN DED QN, U codeine NEGATI VE NG/mL <50 See Note 1 Not Available [facility] [address], [address], 11/25/2024 09:08:15 11/20/19 25 11/25/2024 DRUG TOX MONIT ORING OPIAT ES EXPAN DED QN, U hydrocodone NEGATI VE NG/mL <50 See Note 1 Not Available [facility] [place] [facility] [address], [address], 11/25/2024 09:08:15 11/20/19 25 11/25/2024 DRUG TOX MONIT ORING OPIAT ES EXPAN DED QN, U hydromorphon e NEGATI VE NG/mL <50 See Note 1 Not Available [facility] [address], [address], 11/25/2024 09:08:15 11/20/19 25 11/25/2024 DRUG TOX MONIT ORING OPIAT ES EXPAN DED QN, U morphine 3611 NG/mL <50 high See Note 1 Not Available [facility] [place] [facility] [address], [address], 11/25/2024 09:08:15 11/20/19 25 11/25/2024 DRUG TOX MONIT ORING OPIAT ES EXPAN DED QN, U norhydrocodo ne NEGATI VE NG/mL <50 See Note 1 Not Available [facility] [address], [place], [address], 11/25/2024 09:08:15 11/20/19 25 11/25/2024 DRUG TOX MONIT ORING OPIAT ES EXPAN DED QN, U noroxycodone 990 NG/mL <50 high See Note 1 Not Available [facility] [address], [place], [address], 11/25/2024 09:08:15 11/20/19 25 11/25/2024 DRUG TOX MONIT ORING OPIAT ES EXPAN DED QN, U oxycodone 864 NG/mL <50 high See Note 1 Not Available [facility] [address], [address], 11/25/2024 09:08:15 11/20/19 25 11/25/2024 DRUG TOX MONIT ORING OPIAT ES EXPAN DED QN, U oxymorphone 1254 NG/mL <50 high See Note 1 Not Available [facility] [address], [address], 11/25/2024 09:08:15 11/20/19 25 11/25/2024 DRUG TOX MONIT ORING OPIAT ES EXPAN DED QN, U Unknown Analyte See Note 2 Note 1 This test was devel oped and its enedina tical perfo rmanc e leta cteri stics have been deter mined by [facility]. It has not been clear [...] ts, pleas e conta ct a [facility] Toxic ology Speci alist : [phone] X [phone] ( [phone] ), M-F, 8am-6 pm EST. Not Available [facility] [address], [place], [address], 11/25/2024 09:08:15 12/14/19 24 12/13/2023 MAMMO , scree jairo, [...] Leo beckman Physic avery: Brenda Alexander ms [facility] (Imaging) [address] , [place], [address], 12/16/2023 08:20:33 06/29/20 24 06/29/2024 XR, chest No observ ation record ed. [address], [address], 06/30/2024 12:46:10 09/03/19 25 06/29/2024 XR, chest No observ ation record ed. [address], [address], 09/03/2024 10:32:21 09/03/19 25 06/29/2024 XR, chest No observ ation record ed. [address], [address], 09/04/2024 08:33:47 09/03/19 25 09/03/2024 XR, chest [...] Leo beckman Physic avery: Brenda Alexander ms [facility] (Imaging) [address], [place], [address], 09/03/2024 15:33:10 09/10/1909/03/2024 XR, chest Addend um: Recent imagin g [...] Leo beckman Physic avery: Brenda Alexander ms [facility] (Imaging) [address] [place], [address], 09/10/2024 07:26:54 12/17/1912/14/2024 CT, chest No observ ation record ed. [address], [place], [address], 01/08/2025 15:31:24 03/05/2003/0503/05/2025 XR, wrist , 2 view No observ ation record ed. [facility] [address] [facility], [place], [address], 03/05/2025 10:59:53 Result Notes Documentation Provider Name and Address Organization Details Recorded Time Xr, Chest : CLINICAL HISTORY: COPD exacerbation. Follow-up. TECHNIQUE: Frontal view and lateral view of the chest obtained. COMPARISON: 08/19/2023, 06/29/2022 FINDINGS: The heart is normal in size and configuration.There is no hilar or mediastinal enlargement. There is no focal lung consolidation or infiltrate. There are prominent interstitial markings. There is no definite superimposed acute pathology. The bony thorax is intact. IMPRESSION: No acute disease. COPD. An addendum to this report will be generated if the patient's prior radiographs become available. Reading Physician: Juancho wolf [facility] 09/03/2024 15:33:10 Xr, Chest : Addendum: Recent imaging from 06/29/2024 is available for comparison. Bronchial wall thickening appears decreased compared to the 2823 radiograph. This suggests interval improvement in the nonspecific finding. There is no change in the impression. CLINICAL HISTORY: COPD exacerbation. Follow-up. TECHNIQUE: Frontal view and lateral view of the chest obtained. COMPARISON: 08/19/2023, 06/29/2022 FINDINGS: The heart is normal in size and configuration. There is no hilar or mediastinal enlargement. There is no focal lung consolidation or infiltrate. There are prominent interstitial markings. There is no definite superimposed acute pathology. The bony thorax is intact. IMPRESSION: No acute disease. COPD. An addendum to this report will be generated if the patient's prior radiographs become available. Reading Physician: Juancho wolf [facility] 09/10/2024 07:26:55 Problems Name Problem SNOMED Code Status Onset Date Resolution Date Notes Provider Name and Address Organization Details Recorded Time Recurren t major depressi ve episodes 376025877 Active 2011 Not Available [facility] 0 14:16:47 Major depressi on, melancho lic type 640075296 Completed 201311/25/2020 Removal Reason: recurren t coded and on active problem list SHERRY Head, [facility] 1 06:21:11 Chronic obstruct ezequiel pulmonar y disease 45224572 Active Not Available [facility] 0 14:16:47 Benign essentia l hyperten joshua 7724914 Active 2018 Not Available [facility] 0 14:16:47 Mixed hyperlip idemia 879760890 Active 2018 Not Available [facility] 0 14:16:47 Opioid dependen ce 39477900 Active 2020 coded 01/28/20 Virtual Visit Rita Arevalo SHERRY maryann, [facility] 1 06:21:51 Essentia l hyperten joshua 67219460 Active 2021 Vicky Bentley MD [address] [place] [address], [phone] , [facility] 2 12:24:07 History of acute respirat ory failure 05573463849 625653 Active 2023 Shruthi Foy NP [address] [place] [address], [phone] , [facility] 4 09:55:01 Nodule of lung 694225737 Active 2023 Shruthi Foy NP [address] [place] [address], [phone] , [facility] 4 09:55:24 Acquired trigger finger 3162234 Completed 200404/02/2011 Not Available [facility] 3 03:06:02 Contusio n 735348942 Completed 200102/06/2011 Not Available [facility] 3 03:06:02 Open wound of finger 275140059 Completed 200002/06/2011 Not Available [facility] 3 03:06:02 Contact dermatit is 62410578 Completed 200204/02/2011 Not Available [facility] 3 03:06:02 Gastroes ophageal reflux disease 855576210 Active Not Available [facility] 0 14:16:48 Cellulit is and abscess of hand excludin g digits Completed 200002/06/2011 Not Available [facility] 3 03:06:02 Diarrhea 08256826 Completed 200204/02/2011 Not Available [facility] 3 03:06:02 Disorder of trunk 467360060 Completed 200102/06/2011 Not Available [facility] 3 03:06:02 Sciatica 11075482 Completed 200104/02/2011 Not Available [facility] 3 03:06:02 Contact dermatit is due to plants, except food Completed 200002/06/2011 Not Available [facility] 3 03:06:02 Emphysem atous bronchit is 635714751 Active Not Available [facility] 0 14:16:47 Chronic asthmati c bronchit is 230776751 Active 2003 Not Available [facility] 0 14:16:47 Chronic pain 47692382 Active Not Available [facility] 0 14:16:47 Chronic pain 37637682 Completed 04/02/2011 Not Available [facility] 3 03:06:02 Low back pain 003439048 Completed 200102/06/2011 Not Available [facility] 3 03:06:02 Displace ment of lumbar interver tebral disc without myelopat hy 21334808 Active 2001 Not Available [facility] 0 14:16:48 Asthma 825728509 Active 1999 Not Available [facility] 0 14:16:47 Pain in limb 79944280 Completed 200102/06/2011 Not Available [facility] 3 03:06:02 Cellulit is and abscess of trunk 069063394 Completed 200204/02/2011 Not Available [facility] 3 03:06:02 Problem Notes None recorded. Procedures Surgical History Date Name Laterality Status Provider Name and Address Organization Details Recorded Time 07/14/20 24 Post hospital/SNF follow-up/Transiti onal Care completed Angy Yi [facility] 07/14/2024 14:30:48 06/05/20 24 Medicare Wellness Visit completed Skye Steve MA [facility] 06/05/2024 11:34:39 06/05/20 24 Cardiovascular disease risk reduction counseling completed Vicky Bentley MD [address] [place] [address], [phone], [facility] 06/06/2024 19:42:41 11/18/19 24 Oxygen Administration completed Yi Mckenzie RN [facility] 11/18/2023 11:29:28 11/11/19 24 Oxygen Administration completed Mariza Martin LPN [facility] 11/11/2023 09:16:23 05/31/20 23 Medicare Wellness Visit completed Neil Brewster [facility] 05/31/2023 12:36:43 05/31/20 23 Cardiovascular disease risk reduction counseling completed Vicky Bentley MD [address] [place] [address], [phone], [facility] 06/02/2023 19:50:47 03/18/20 23 Asthma Control Test (12 + years old) completed Carlos Black [facility] 03/18/2023 16:15:16 05/31/20 22 Post hospital/SNF follow-up/Transiti onal Care completed Neil Brewster [facility] 05/31/2022 08:46:05 04/25/20 22 Medicare Wellness Visit completed Rima yee MA [facility] 04/25/2022 08:34:47 04/25/20 22 Alcohol use screening completed Rima yee MA [facility] 04/25/2022 08:34:47 04/25/20 22 Cardiovascular disease risk reduction counseling completed Rima yee MA [facility] 04/25/2022 08:34:47 08/23/20 21 Asthma Control Test (12 + years old) completed Malgorzata Campo MA [facility] 08/22/2021 15:11:05 05/12/20 20 prevention-cardiov ascular risk reduction counseling completed Anna Montelongo MA [facility] 05/11/2020 16:37:01 05/12/20 20 prevention-annual alcohol misuse screening completed Anna Montelongo MA [facility] 05/11/2020 16:37:01 05/12/20 20 Medicare Annual Wellness Visit completed Anna Montelongo TIMA [facility] 05/11/2020 16:37:01 05/11/20 19 Medicare Wellness Visit completed Davimandinolan HeatonBrook [facility] 05/11/2019 15:29:26 05/11/20 19 Asthma Control Test (12 + years old) completed Matt UmanaBaljeet [facility] 05/11/2019 15:37:53 08/16/20 16 Cholecystectomy completed Kleber Piper MD [address] [place] [address], [phone], [facility] 08/17/2016 16:42:42 09/26/19 16 Medicare Wellness Visit completed Kleber Piper MD [address] [place] [address], [phone], [facility] 09/26/2015 09:39:10 03/17/20 13 Asthma Control Test (12 + years old) completed Kleber Piper MD [address] [place] [address], [phone], [facility] 03/17/2013 13:44:57 Tonsillectomy completed Not Available [facility] 07/19/2011 06:05:52 Imaging Results None recorded. Procedure Notes None recorded. Medical Equipment None Reported. Allergies Allergen ID Allergen Name Allergen Category Reaction Reaction Severity Criticality Documentation Date Start Date Code Code System Note Provider Name and Address Organization Details Recorded Time 507401 budesonid e medicatio n wheezing severe high 03/18/2023 [facility] 16:07:55 Medications Name Sig Start [...] Available doxycycli ne hyclate 100 mg capsule TAKE 1 CAPSULE BY MOUTH TWICE DAILY active Not Available Not Available No t Available ipratropi um 0.5 mg-albute rol 3 [...] Avai lable prednison e 20 mg tablet TAKE 2 TABLETS BY MOUTH DAILY 11/19 completed finsiehd 11/19/24 DS Not Available Not Available Not Available alendrona te 70 mg tablet Take 1 tablet every week by oral route. 2024 active Not Available Not Available Not [...] 1 tablet every day by oral route. 2024 active Not Available Not Available Not Avai lable flunisoli de 25 mcg (0.025 %) nasal spray USE 1 SPRAY IN EACH NOSTRIL TWICE DAILY active Not Available Not Available No t Available triamcino lone acetonide 0.1 % topical ointment [...] BY MOUTH TWICE A DAY FOR 28 DAYSD UE 03/20/25* 2024 active CSRP FILL Due 03/20/25 Not Available Not Available Not Available codeine 10 mg-guaife nesin 100 mg/5 mL oral liquid Take 10 mL every 4 hours by oral route. 12/28 completed hasn't used 10/01/22M S Not Available Not Available Not Available lisinopri l 5 mg tablet Take 1 [...] completed Not Available Not Available Not Available fluticaso ne propionat e 50 mcg/actua tion nasal spray,kris pension SHAKE LIQUID AND USE 2 SPRAYS IN EACH NOSTRIL AT BEDTIME active Not Available Not Available No t Available Phenergan 25 mg/mL injection solution Take 25 mg as needed by injectio n route as needed. 07/04 completed Disconti nued Not Available Not Available Not Available amoxicill in 875 mg-potass ium clavulana te 125 mg tablet TAKE 1 TABLET BY MOUTH EVERY 12 HOURS 11/19 completed Not Available Not Available Not Available Bactrim DS 800 mg-160 mg tablet [...] day Not Available Not Available Not Available prednison e Predniso neTaper4 0 mg daily x 3 days, 30 mg daily x 3 days, 20 mg daily x 3 days, 10 mg daily x 3 days 2024 active Pulmonol ogy note Not Available Not Available Not Available multivita min active 1 a day Not Available Not Available Not Available Doxycycli ne 100 mg Twice daily x 7 days 2024 active Pulmonol ogy note Not Available Not Available Not Available albuterol [...] 1 tablet every day by oral route. 2024 active Not Available Not Available Not Avai lable oxycodone 10 mg tablet TAKE 1 TABLET BY MOUTH 4 TIMES A DAY FOR 28 DAYSD UE 03/20/25* 2024 active CSRP FILL Due 03/20/25 Not Available Not Available Not Available Calcium [...] ular syringe TO BE ADMINIST ERED BY [employer] FOR IMMUNIZA TION 01/09 completed Not Available Not Available Not Available Spiriva Respimat 2.5 mcg/actua tion solution for inhalatio n Inhale 2 puffs every day by inhalati on route as directed . 11/19 completed not using 11/19/24 DS Not Available Not Available Not Available Stiolto Respimat 2.5 mcg-2.5 mcg/actua tion solution for inhalatio n Inhale 2 puffs every day by inhalati on route. 09/22 completed Not Available Not Available Not Available Narcan 4 mg/actuat ion nasal spray Take by nasal route for suspecte d opioid overdose . [place] 1 mL in one nostril. Repeat after 3 minutes if no or minimal response 2023 active Not Available Not Available Not Avai lable Flucelvax Quad 6263-2003 (PF) 60 mcg (15 mcg x 4)/0.5 mL IM syringe TO BE ADMINIST ERED BY [employer] FOR IMMUNIZA TION 07/04 completed Not Available Not Available Not Available oxygen Use 3 liters via nasal cannula on exertion , or as directed 2023 active Per d/c summary [facility] 07/04/24, uses [employer] Not Available Not Available Not Available Wixela Inhub 500 mcg-50 mcg/dose powder for inhalatio n Inhale 1 puff twice a day by inhalati on route. 11/19 completed not using 11/19/24 DS Not Available Not Available Not Available Breztri Aerospher e 160 mcg-9mcg- 4.8mcg/ac tuation HFA aerosol inhaler Inhale 2 puffs twice a day by inhalati on route. 2024 active Not Available Not Available Not Avai lable Trelegy Ellipta 200 mcg-62.5 mcg-25 mcg powder for inhalatio n Inhale 1 puff every day by inhalati on route. 10/01 completed not using 10/01/22M S Not Available Not Available Not Available BinaxNOW COVID-19 Ag Self Test kit USE DIRECTED ON PACKAGE 06/28 completed Not Available Not Available Not Available Vitals Date Recorded Body height Oxygen saturation Oxygen saturation in Arterial blood by Pulse oximetry Inhaled oxygen flow rate Heart rate Body mass index (BMI) Body weight Systolic And Diastolic Provider Name and Address Organization Details Last Updated DateTime 5 162.56 cm 94 % 94 % 2 L/min 96 /min 25.6 kg/m2 87830.2 6 g 114/66 mm[Hg] Skye Steve MA [facility] 5 11:03:21 Date Recorded Body height Body mass index (BMI) Body weight Heart rate Systolic And Diastolic Provider Name and Address Organization Details Last Updated DateTime 12/16/2023 162.56 cm 24.9 kg/m2 58983.89 g 88 /min 122/68 mm[Hg] Skye Steve MA [facility] 12/16/2023 11:35:41 Date Recorded Body height Body mass index (BMI) Body weight Heart rate Oxygen saturation Oxygen saturation in Arterial blood by Pulse oximetry Inhaled oxygen flow rate Systolic And Diastolic Provider Name and Address Organization Details Last Updated DateTime 5 162.56 cm 26.4 kg/m2 78470.2 2 g 80 /min 94 % 94 % 3 L/min 140/70 mm[Hg] Tabby Garza LPN [facility] 5 12:30:15 Date Recorded Body height Oxygen saturation Oxygen saturation in Arterial blood by Pulse oximetry Heart rate Body mass index (BMI) Body weight Systolic And Diastolic Provider Name and Address Organization Details Last Updated DateTime 4 162.56 cm 95 % 95 % 76 /min 26.3 kg/m2 93336.7 3 g 126/72 mm[Hg] Skye Steve MA [facility] 4 11:14:02 Date Recorded Body height Oxygen saturation Oxygen saturation in Arterial blood by Pulse oximetry Heart rate Body mass index (BMI) Body weight Systolic And Diastolic Provider Name and Address Organization Details Last Updated DateTime 4 162.56 cm 97 % 97 % 86 /min 26.5 kg/m2 49991.0 2 g 122/66 mm[Hg] Skye Steve MA [facility] 4 11:42:03 Date Recorded Body height Body mass index (BMI) Body weight Heart rate Oxygen saturation Oxygen saturation in Arterial blood by Pulse oximetry Systolic And Diastolic Provider Name and Address Organization Details Last Updated DateTime 4 162.56 cm 25.6 kg/m2 47000.3 6 g 94 /min 94 % 94 % 100/62 mm[Hg] Angy Yasmeenquintin [facility] 4 14:37:12 Social History Question Answer Notes LastModified by Organizat ion Details LastModified Time Tobacco Smoking Status Former Smoker quit in october TIMA Benitez [facility] 02/20/2021 12:30:50 Do You Have An Advance Directive? Yes spouse [email or web address] Information not available 10/01/2022 Do You Wear A Helmet When Biking? [...] Kid Information not available 10/04/2011 Are You Deaf Or Do You Have Serious Difficulty Hearing? No [email or web address] Information not available 10/01/2022 What Type Of Diet Are You Following? REGULAR Information not available 08/03/2022 Which Illicit Or Recreational Drugs Have You Used? None Information not available 07/19/2011 Education 10 [email or web address] Information no t available 10/01/2022 How Many Days Of Moderate To Strenuous Exercise, Like A Brisk Walk, Did You Do In The Last 7 Days? 7 [email or web address] Information not available 10/01/2022 Have There Been Any Changes To Your Family Or Social Situation? No Waiting For Grandson To Be Born [email or web address] Information not available 06/05/2024 When Did You Quit Smoking? 16+yearssin celastcimanny leonardte [email or web address] Information not available 08/19/2023 Are There Any Guns Present In Your Home? Yes LOCKED Information not available 10/04/2011 Do You Use Insect Repellent Routinely? No [email or web address] Information not available 06/05/2024 Live Alone Or [...] Date Of Your Most Recent Tobacco Screening? 11/19/2024 [email or web address] Information not available 11/19/2024 How Many Children Do You Have? 3 7 Information not available 07/19/2011 What Is Your Current Pack Years? 10-packye ars Information not available 04/09/2024 What Is Your [...] To Smoke? No Information not available 08/03/2022 How Much Tobacco Do You Smoke? No [email or web address] Information not available 04/09/2024 What Types Of Sporting Activities Do You Participate In? None 7 Information not available 07/19/2011 General Stress Level Low [email or web address] Information not available 10/01/2022 Do You Use Sunscreen Routinely? No [email or web address] Information not available 06/05/2024 How Many Years Have You Smoked Tobacco? 15 alot [email or web address] Information not available 04/09/2024 Do You Have Difficulty Walking Or Climbing Stairs? No [email or web address] Information not available 10/01/2022 Sex: Female Functional Status Question Answer Note LastModified by Organizat ion Details LastModified Time Do you use any illicit or recreational drugs? No Information not available 08/03/2022 Do you or have you ever used any other forms of tobacco or nicotine? No [email or web address] Information not available 10/01/2022 What is your level of alcohol consumption? Occasional veryvery rare [email or web address] Information not available 06/05/2024 Do you or have you ever used smokeless tobacco? Never used smokeless tobacco Information not available 08/03/2022 Are you currently employed? No Information not available 08/03/2022 Do you have difficulty doing errands alone? No [email or web address] Information not available 10/01/2022 What is your occupation? retired [email or web address] Information not available 07/19/2011 Do you have difficulty dressing or bathing? No [email or web address] Information not available 10/01/2022 Do you or have you ever used e-cigarettes or vape? Never used electronic cigarettes Information not available 08/03/2022 What is your exercise level? Moderate 5 miles walking daily [email or web address] Information not available 06/05/2024 Mental Status Question Answer Note LastModified by Organizat ion Details LastModified Time Do you have difficulty concentrating, remembering or making decisions? No some memorary issue -04/05/14 [email or web address] Information not available 10/01/2022 Family History Nothing Reported Notes:father - cancer prosta te, mother- dm,copd Medical History Condition Response Kidney Stones Y GERD Y COPD Y Alcoholism Asthma Chronic Back Pain Y Gynecological History Statement/Question Response Obstetrics History GPAL:G 0 P 0 0 0 0 Immunizations Vaccine Type Date Status Note Provider Nam e and Address Organization Details Recorded Time influenza, unspecified formulation 3 completed Not Available [facility] 07/18/2011 05:21:07 influenza, unspecified formulation 4 completed Not Available [facility] 07/18/2011 05:21:07 Influenza, split virus, trivalent, preservative 1 completed Not Available [facility] 09/19/2019 02:38:55 pneumococcal polysaccharide PPV23 1 completed Not Available [facility] 09/19/2019 02:14:32 Td(adult) unspecified formulation 5 completed Not Available [facility] 07/18/2011 05:21:07 Tdap 3 completed Not Available [facility] 09/19/2019 02:29:25 Influenza, split virus, trivalent, PF 4 completed Not Available [facility] 09/19/2019 02:26:36 Influenza, high-dose, trivalent, PF 3 completed Not Available [facility] 10/01/2022 10:56:31 Influenza, split virus, quadrivalent, PF 3 completed Not Available [facility] 10/01/2022 10:56:31 Influenza, split virus, quadrivalent, preservative 8 completed Not Available [facility] 10/01/2022 10:56:30 Influenza, split virus, quadrivalent, preservative 9 completed Not Available [facility] 10/01/2022 10:56:30 pneumococcal polysaccharide PPV23 1 completed TIMA Benitez, [facility] 04/05/2021 15:32:17 Td (adult), 2 Lf tetanus toxoid, preservative free, adsorbed 3 completed Vicky Bentley MD [address] [place] [address], [phone] 03/23/2023 14:44:29 COVID-19, mRNA, LNP-S, PF, 100 mcg/0.5mL dose or 50 mcg/0.25mL dose 1 completed TIMA Anglin [facility] 12/16/2023 11:12:22 COVID-19, mRNA, LNP-S, PF, 100 mcg/0.5mL dose or 50 mcg/0.25mL dose 1 completed [place], [facility] 11:12:22 COVID-19, mRNA, LNP-S, PF, 100 mcg/0.5mL dose or 50 mcg/0.25mL dose 1 [facility] 12/16/2023 11:12:22 COVID-19, mRNA, LNP-S, PF, 100 mcg/0.5mL dose or 50 mcg/0.25mL dose 2 [facility] 12/16/2023 11:12:22 COVID-19, mRNA, LNP-S, bivalent, PF, 50 mcg/0.5 mL or 25mcg/0.25 mL dose 2 [facility] 12/16/2023 11:12:22 zoster recombinant 2 [facility] 12/16/2023 11:12:21 Influenza, high-dose, quadrivalent, PF 2 [facility] 12[facility]16[facility]2023 11:12:22 zoster recombinant 2 [facility] 12/16/2023 11:12:22 influenza, unspecified formulation 3 completed Mariza Martin LPN [facility] 08/19/2023 09:23:44 Influenza, MDCK, quadrivalent, PF 7 [facility] 11:12:21 Influenza, high-dose, quadrivalent, PF 1 [facility] 12[facility]16/2023 11:12:22 Influenza, high-dose, quadrivalent, PF 3 [facility] 12/16/2023 11:12:22 RSV, bivalent, protein subunit RSVpreF, diluent reconstituted, 0.5 mL, PF 3 [facility] 12/16/2023 11:12:22 COVID-19, mRNA, LNP-S, PF, melquiades-sucrose, 30 mcg/0.3 mL 3 [facility] 12/16/2023 11:12:22 Influenza, split virus, trivalent, preservative 9 completed [facility] 12/16/2023 11:12:22 Influenza, split virus, trivalent, PF 0 [facility] 12/16/2023 11:12:22 Influenza, split virus, trivalent, PF 6 [facility] 12/16/2023 11:12:22 Influenza, split virus, trivalent, PF 5 completed [facility] 12/16/2023 11:12:22 Influenza, split virus, quadrivalent, PF 8 completed [facility] 12/16/2023 11:12:22 Influenza, high-dose, trivalent, PF 4 completed [facility] 06/05/2024 11:38:31 COVID-19, mRNA, LNP-S, PF, melquiades-sucrose, 30 mcg/0.3 mL 4 completed [facility] 11/19/2024 10:55:33 influenza, unspecified formulation 0 completed Not Available [employer] 07/18/2011 05:20:34 Past Encounters Encounter ID Performer Location Encounter Start Date Encounter Closed Date Diagnosis/Indication Diagnosis SNOMED-CT Code Diagnosis ICD10 Code Diagnosis Note [id number] [facility], OFFICE [address] [place] [address] 08/05/2000 14:05:00 09/22/2008 02:02:29 [id number] Tabby Chowdary MD [facility] Urgent Care [address] [place] [address] 01/12/2001 14:30:00 09/22/2008 02:02:29 [id number] Antony Kerns III, MD [facility] Urgent Care [address] [place] [address] 01/18/2001 10:45:00 09/22/2008 02:02:29 [id number] Iker Serrano MD [facility] Urgent Care [address] [place] [address] 02/22/2001 11:45:00 09/22/2008 02:02:29 [id number] Bee Alvarado NP FP, [facility], OFFICE [address] [place] [address] 08/22/2001 09:00:00 09/22/2008 02:02:[id number] [facility] , [address] [address] 10/07/2001 09:30:00 09/22/2008 02:02:29 [id number] Leroy Adams MD Radiology , [address] [address] 10/07/2001 00:00:00 09/22/2008 02:02:29 [id number] Kleber Piper MD , [facility], OFFICE [address] [place] [address] 12/23/2001 10:30:00 09/22/2008 02:02:29 [id number] [facility] RADIOLOGY [employer] [facility] , [address] [address] 12/23/2001 10:45:00 09/22/2008 02:02:29 [id number] [facility] RADIOLOGY [employer] [facility] , [address] [address] 12/23/2001 00:00:00 09/22/2008 02:02:29 [id number] Dallin Dowell. , [facility], OFFICE [address] [place] [address] 02/04/2002 13:59:33 09/22/2008 02:02:29 [id number] Kleber Piper MD , [facility], OFFICE [address] [place] [address] 02/06/2002 15:43:21 09/22/2008 02:02:29 [id number] Shania perez, PT Physical Therapy, [address] [address] 02/10/2002 10:28:49 09/22/2008 02:02:29 [id number] Shania perez, PT Physical Therapy, [address] [address] 02/20/2002 10:12:54 09/22/2008 02:02:29 [id number] Kleber Piper MD , [facility], OFFICE [address] [place] [address] 02/25/2002 09:10:34 09/22/2008 02:02:29 [id number] Kleber Piper MD , [facility], OFFICE [address] [place] [address] 03/20/2002 08:24:14 09/22/2008 02:02:29 [id number] Kleber Piper MD , [facility], OFFICE [address] [place] [address] 05/18/2002 09:05:54 09/22/2008 02:02:29 [id number] Shania perez, PT Physical Therapy, [address] [address] 05/21/2002 08:24:50 09/22/2008 02:02:29 [id number] Shania perez, PT Physical Therapy, [address] [address] 07/27/2002 12:51:55 09/22/2008 02:02:29 [id number] Kleber Piper MD , [facility], OFFICE [address] [place] [address] 08/31/2002 10:33:45 09/22/2008 02:02:29 [id number] Dallin Dowell. , [facility], OFFICE [address] [place] [address] 11/06/2002 15:00:08 09/22/2008 02:02:29 [id number] Kleber Piper MD , [facility], OFFICE [address] [place] [address] 12/28/2002 10:14:58 09/22/2008 02:02:29 [id number] Kleber Piper MD , [facility], OFFICE [address] [place] [address] 02/12/2003 08:56:29 09/22/2008 02:02:29 [id number] Kleber Piper MD , [facility], OFFICE [address] [place] [address] 03/02/2003 14:21:56 09/22/2008 02:02:29 [id number] [facility] - [facility] [address] [place] [address] 03/02/2003 15:01:11 09/22/2008 02:02:29 [id number] [facility] - [address] [address] 03/04/2003 09:31:51 09/22/2008 02:02:29 [id number] Kleber Piper MD , [facility], OFFICE [address] [place] [address] 05/28/2003 11:56:50 05/31/2003 14:28:24 [id number] [facility] , [facility], OFFICE [address] [place] [address] 06/07/2003 17:44:06 06/07/2003 17:44:11 [id number] Kleber Piper MD [facility], [address] [address] 00:00:00 09/22/2008 02:02:29 [id number] Kleber Piper MD , [facility], OFFICE [address] [place] [address] 02/28/2004 09:46:53 02/28/2004 13:18:03 [id number] [facility] , [facility], OFFICE [address] [place] [address] 06/05/2004 14:57:20 06/06/2004 08:42:24 [id number] Kleber Piper MD , [facility], OFFICE [address] [place] [address] 02/07/2005 08:38:05 02/07/2005 14:19:37 [id number] Kleber Piper MD , [facility], OFFICE [address] [place] [address] 07/31/2005 15:16:01 09/22/2008 02:02:29 [id number] Kleber Piper MD , [facility], OFFICE [address] [place] [address] 02/12/2006 09:41:31 02/12/2006 11:17:42 [id number] Kleber Piper MD , [facility], OFFICE [address] [place] [address] 02/18/2007 11:03:35 02/18/2007 14:32:16 [id number] [facility] FP, [facility], OFFICE [address] [place] [address] 05/16/2009 11:44:34 05/16/2009 16:17:05 [id number] Kleber Piper MD , [facility], OFFICE [address] [place] [address] 07/27/2009 10:04:18 07/27/2009 13:27:36 [id number] [facility] SP[facility] FP, [facility], OFF[address] [place] [address] 08/05/2009 09:19:22 08/09/2009 14:41:32 [id number] Kleber Piper MD , [facility], OFFICE [address] [place] [address] 08/02/2010 08:53:38 08/02/2010 12:09:07 [id number] Kleber Piper MD , [facility], OFFICE [address] [place] [address] 12/25/2010 13:23:09 12/27/2010 09:40:30 [id number] Kleber Piper MD , [facility], OFFICE [address] [place] [address] 04/02/2011 07:40:36 04/02/2011 08:21:58 [id number] Kleber Piper MD , [facility], OFFICE [address] [place] [address] 06/26/2011 08:44:23 06/26/2011 10:14:38 [id number] [facility] FP, [facility], OFFICE [address] [place] [address] 06/29/2011 07:34:11 06/29/2011 13:26:43 [id number] Kleber Piper MD , [facility], OFFICE [address] [place] [address] 10/04/2011 09:40:48 10/04/2011 10:52:43 [id number] Bee Alvarado NP , [facility], OFFICE [address] [place] [address] 11/02/2011 09:07:34 11/02/2011 09:32:35 [id number] Kleber Piper MD , [facility], OFFICE [address] [place] [address] 01/01/2012 09:13:07 01/03/2012 09:26:15 [id number] Kleber Piper MD , [facility], OFFICE [address] [place] [address] 04/02/2012 08:48:27 04/02/2012 09:28:20 [id number] Kleber Piper MD , [facility], OFFICE [address] [place] [address] 08/11/2012 08:10:32 08/11/2012 08:45:50 [id number] Kleber Piper MD , [facility], OFFICE [address] [place] [address] 11/12/2012 10:12:37 11/12/2012 10:57:39 [id number] Kleber Piper MD , [facility], OFFICE [address] [place] [address] 03/17/2013 09:48:52 03/17/2013 10:58:55 [id number] Kleber Piper MD , [facility], OFFICE [address] [place] [address] 04/09/2013 08:20:21 04/09/2013 08:43:03 [id number] Kleber Piper MD , [facility], OFFICE [address] [place] [address] 05/06/2013 08:26:24 05/07/2013 16:29:59 Asthma [id number] Kleber Piper MD , [facility], OFFICE [address] [place] [address] 06/02/2013 07:49:54 06/02/2013 08:42:29 Chronic pain 78264206 fair control on current regimen; continue same dose of narcotics; ibuprofen helps Gastroesop hageal reflux disease 825421236 Anxiety disorder 776331821 Moderate depression 175569721 [id number] Kleber Piper MD , [facility], OFFICE [address] [place] [address] 09/10/2013 09:55:05 09/10/2013 10:24:28 Chronic pain 59354395 same dose of morphine Gastroesop hageal reflux disease 586383308 Moderate depression 849611031 [id number] Kleber Piper MD , [facility], OFFICE [address] [place] [address] 12/03/2013 09:16:06 12/03/2013 10:09:54 Chronic pain 28451275 same dose of morphine- not interested in trying to cut back pain control isstable but just moderate. failed adjuvent therapies. does take ibuprofen high dose Major depr ession, melancholic type 083826771 doing okay off med for now Epidermoid cyst 683185601 reassured Chronic ob structive pulmonary disease 08300654 albuterol prn [id number] Lorenzo Wagner MD , [facility], OFFICE [address] [place] [address] 12/05/2013 14:39:18 12/05/2013 15:34:14 Nausea and vomiting 52707673 Dizziness 685486603 [id number] Kleber Piper MD , [facility], OFFICE [address] [place] [address] 12/07/2013 14:41:32 12/07/2013 15:26:42 Vertigo 018856789 most likely BPV. call if returns. pt and educated about condition [id number] Kleber Piper MD , [facility], OFFICE [address] [place] [address] 03/24/2014 10:44:05 03/24/2014 11:30:47 Sprain of foot 34332981 heat, rest, arch support and ibuprofen 400mg qid. call prn [id number] Kleber Piper MD , [facility], OFFICE [address] [place] [address] 04/05/2014 10:03:37 04/05/2014 10:45:45 Counseling [id number] Adult [facility] th examination [id number] see Risk Assessment and Lifestyle Change Counseling section above Chronic ob structive pulmonary disease 54810699 albuterol with spacer prn Chronic pain 03523717 sa me dose of morphine- still with back pain but managing [id number] Kleber Piper MD , [facility], OFFICE [address] [place] [address] 07/06/2014 09:20:02 07/06/2014 09:48:22 Chronic pain 23375282 same dose of morphine- still with back pain but managing Emphysemat ous bronchitis 504708596 albuterol with spacer prn Gastroesop hageal reflux disease 289208375 Influenza vaccine needed 1321610719 006 [id number] Kleber Piper MD , [facility], OFFICE [address] [place] [address] 10/05/2014 09:14:57 10/05/2014 09:54:43 Chronic pain 50889441 same dose of morphine- still with back pain but managing Chronic ob structive pulmonary disease 89011393 albuterol with spacer prn Moderate depression 502537757 in remission off meds - uses clonazepam prn for anxiety [id number] Kleber Piper MD , [facility], OFFICE [address] [place] [address] 12/30/2014 09:37:48 12/30/2014 10:24:03 Chronic pain 33597230 same dose of morphine- still with back pain but managing Chronic ob structive pulmonary disease 89933229 albuterol with spacer prn Moderate depression 336408116 in remission off meds - uses clonazepam prn for anxiety Gastroesop hageal reflux disease 982436688 [id number] Kleber Piper MD , [facility], OFFICE [address] [place] [address] 03/24/2015 09:42:24 03/24/2015 10:13:01 Displacement of lumbar intervertebral disc without myelopathy 96544439 Chronic pain 02187401 sa me dose of morphine- still with back pain but managing Chronic ob structive pulmonary disease 66198257 albuterol with spacer prn Moderate depression 606842098 in remission off meds - uses clonazepam prn for anxiety Gastroesop hageal reflux disease 899547624 [id number] Kleber Piper MD , [facility], OFFICE [address] [place] [address] 06/14/2015 09:17:07 06/14/2015 10:06:46 Chronic pain 18863029 R52 G89.29 same dose of morphine- still with back pain but managing Displaceme nt of lumbar intervertebral disc without myelopathy 08041393 M51.26 Chronic ob structive pulmonary disease 69640597 J44.9 albuterol with spacer prn Moderate depression 3104 57037 F32.1 in remission off meds - uses clonazepam prn for anxiety Gastroesop hageal reflux disease 031155083 K21.9 [id number] Kleber Piper MD , [facility], OFF[address] [place] [address] 09/26/2015 08:41:09 09/26/2015 10:22:04 Chronic pain 24090923 R52 same dose of morphine- still with back pain but managing Adult heal th examination 941749246 Z00.00 see Risk Assessment and Lifestyle Change Counseling section above Counseling 220816016 Z71 .9 Screening for disorder 356722252 Z13.9 Chronic ob structive pulmonary disease 57332175 J44.9 albuterol with spacer prn Screening for malignant neoplasm of cervix 094722103 Z12.4 Mucocele of mouth 820486 008 K13.79 pt to let me know when she wants this removed. will refer to ENT [id number] Kleber Piper MD , [facility], OFFICE [address] [place] [address] 12/26/2015 09:11:04 12/26/2015 10:13:09 Chronic pain 06988183 R52 same dose of morphine- still with back pain but managing Chronic ob structive pulmonary disease 53877443 J44.9 albuterol with spacer prn Gastroesop hageal reflux disease 509566082 K21.9 [id number] Kleber Piper MD , [facility], OFF[address] [place] [address] 03/26/2016 09:20:40 03/27/2016 11:32:15 Chronic pain 65081729 R52 pt told of higher risk of if taking over 100mg of morphine a day. agrees to cut morpine short aciting from 15mg 5 times a day to qid. Epidermoid cyst of skin 952523895 L72.0 [id number] Kleber Piper MD , [facility], OFF[address] [place] [address] 06/13/2016 08:15:17 06/13/2016 08:45:43 Moderate depression 732015656 F32.1 in remission off meds - Chronic ob structive pulmonary disease 43892510 J44.9 not fully controlled with albuterol alone Screening for malignant neoplasm of colon 931054212 Z12.11 refuses colonosoco py Displaceme nt of lumbar intervertebral disc without myelopathy 87198109 M51.26 try norpramin- decrease MSIR to 15mg 3 1/2 tabs qd. told how dangerous morphine doses above 100mg a day is. we are slowly tapering her down. [id number] Kleber Piper MD , [facility], OFFICE [address] [place] [address] 09/26/2016 08:21:59 09/28/2016 16:20:53 Chronic pain 94120335 R52 reduce total morphine equivalent from 240 to about 200mg a day- warned about withdrawal sx Chronic ob structive pulmonary disease 11320968 J44.9 not controlled - d/c combivent- substitute albuterol 2 puffs q4h and add spiriva [id number] Kleber Piper MD , [facility], OFF[address] [place] [address] 11/15/2016 08:31:10 11/15/2016 13:44:42 Acute bronchitis 89144183 J20.9 with laryngitis rest, hot liquids,hu midify air, call if worse Chronic ob structive pulmonary disease 44135941 J44.9 continue same meds. [id number] Kleber Piper MD , [facility], [address] [place] [address] 12/24/2016 10:37:46 12/25/2016 13:15:37 Opioid dependence 77446602 F11.20 we are gong to taper her MS contin to 3omg tid from 60mg bid starting next month Chronic ob structive pulmonary disease 19663986 J44.9 add a LABA to the LAMA, cont albuterol Displaceme nt of lumbar intervertebral disc without myelopathy 40003691 M51.26 has fair and stable pain control nowreduce total morphine equivalent want to get donw to 100mg or less [id number] Kleber Piper MD , [facility], OFF[address] [place] [address] 04/02/2017 09:15:06 04/02/2017 09:55:13 Chronic pain 29565696 R52 reduce oxycodone for 15mg qid to 10mg 5 times a day. ureged to cut to qid if can. Chronic ob structive pulmonary disease 82084176 J44.9 on stiolto and albuterol doing better. check to make sure not taking spiriva in addition. [id number] Kleber Piper MD , [facility], OFFICE [address] [place] [address] 07/04/2017 09:17:19 07/04/2017 09:53:26 Chronic pain 32583004 R52 increase oxycodone for 15mg qid from 10mg 5 times a day. at same time will decrease MS contin to 30mg bid from tid. pt understand s goal is to get her under 100mg of morphine equivalent s Opioid dependence 221719 00 F11.20 Chronic ob structive pulmonary disease 70731649 J44.9 stable [id number] Kleber Piper MD FP, [facility], OFFICE [address] [place] [address] 10/07/2017 08:19:31 10/07/2017 08:51:10 Opioid dependence 35777911 F11.20 Chronic ob structive pulmonary disease 91777720 J44.9 stable Chronic pain 91828017 R5 2 increase oxycodone for 15mg qid from 10mg 5 times a day. at same time will decrease MS contin to 30mg bid from tid. pt understand s goal is to get her under 100mg of morphine equivalent s- this new proram gets her down about 8mg a day morphine equivalent Gastroesop hageal reflux disease 231967855 K21.9 [id number] Vicky Bentley MD , [facility], OFFICE [address] [place] [address] 01/09/2018 11:33:07 01/09/2018 12:52:18 Chronic pain 91901864 R52 Opioid dependence 820735 00 F11.20 will begin process of decreasing pain meds - will switch to 10 mg tabs and decrease by 5 mg with next refill and continue 5 mg every month Chronic ob structive pulmonary disease 78883382 J44.9 Chronic back pain 017236 002 M54.9 [id number] Vicky Bentley MD , [facility], OFF[address] [place] [address] 04/21/2018 15:22:33 04/21/2018 16:19:21 Adult health examination 640034984 Z00.00 see Risk Assessment and Lifestyle Change Counseling section above Depression screening 171 054004 Z13.89 depression screening tool administer ed, entered into emr, scored and discussed, time greater than 7.5 minutes Screening mammography 24 032134 Z12.31 Chronic pain 73349153 R5 2 Chronic ob structive pulmonary disease 35989313 J44.9 Gastroesop hageal reflux disease 487721496 K21.9 Screening for malignant neoplasm of colon 412778991 Z12.11 Referral for a DIRECT booked colonoscop y. This patient is a healthy ASA Class 1 or 2 patient (only mild systemic disease), or a STABLE, well controlled insulin dependent diabetic. They do not have serious cardiac disease ie IN/angiopl asty within 1 year, symptomati c CHF; renal failure with CKD 4 or 5; take Coumadin, Plavix, Aggrenox, etc. Alcohol dependence 25794 003 F10.21 not presenlty drinking [id number] GRISELDA Cook , [facility], OFF[address] [place] [address] 05/08/2018 11:13:09 05/09/2018 12:51:26 Chronic obstructive pulmonary disease 08642510 J44.9 Increased blood pressure 46336147 R03.0 Screening for malignant neoplasm of cervix 125197599 Z12.4 [id number] Vicky Bentley MD , [facility], OFF[address] [place] [address] 06/30/2018 08:46:24 07/30/2018 14:35:21 Screening for malignant neoplasm of colon 996680795 Z12.11 Referral for a DIRECT booked colonoscop y. This patient is a healthy ASA Class 1 or 2 patient (only mild systemic disease), or a STABLE, well controlled insulin dependent diabetic. They do not have serious cardiac disease ie IN/angiopl asty within 1 year, symptomati c CHF; renal failure with CKD 4 or 5; take Coumadin, Plavix, Aggrenox, etc. Plantar fasciitis 217262 003 M72.2 xray neg will take aleve and get arch supports and f/u Elevated blood-pressure reading without diagnosis of hypertension 456522263 R03.0 [id number] Vicky Bentley MD , [facility], [address] [place] [address] 07/28/2018 09:36:35 07/29/2018 16:23:25 Long-term drug therapy 677760390 Z79.899 Chronic ob structive pulmonary disease 15429209 J44.9 Major depr ession, melancholic type 889831394 F32.9 continue daily exercise Benign ess ential hypertension 0640743 I10 bp has been slowly increasing discussed med choices and will start lisinopril Plantar fasciitis 959763 003 M72.2 xray neg will take aleve and get arch supports and f/u [id number] Vicky Bentley MD , [facility], OFF[address] [place] [address] 10/30/2018 10:55:54 10/30/2018 12:06:09 Chronic pain 86754352 R52 will continue present opioid with drop to 4 per day oxycodone Opioid dependence 166453 00 F11.20 Long-term drug therapy 486984749 Z79.899 Screening for malignant neoplasm of colon 790035123 Z12.11 Referral for a DIRECT booked colonoscop y. This patient is a healthy ASA Class 1 or 2 patient (only mild systemic disease), or a STABLE, well controlled insulin dependent diabetic. They do not have serious cardiac disease ie IN/angiopl asty within 1 year, symptomati c CHF; renal failure with CKD 4 or 5; take Coumadin, Plavix, Aggrenox, etc. Chronic ob structive pulmonary disease 34194153 J44.9 stable on meds will continue [id number] Vicky Bentley MD , [facility], [address] [place] [address] 01/14/2019 13:33:47 01/15/2019 12:01:12 Chronic obstructive pulmonary disease 04385699 J44.9 stable on meds will continue Chronic pain 82553767 R5 2 will continue present opioid with drop to 4 per day oxycodone Opioid dependence 716824 00 F11.20 Benign ess ential hypertension 9741060 I10 bp has improved no chest pain or sob Gastroesop hageal reflux disease 638729059 K21.9 continue omeprazole Low back pain 078987560 M54.5 continue meds and walking Moderate depression 3104 70669 F32.1 continue meds [id number] Vicky Bentley MD , [facility], [address] [place] [address] 05/11/2019 15:17:58 05/11/2019 16:06:14 Chronic obstructive pulmonary disease 59615088 J44.9 stable on meds will continue Recurrent major depressive episodes 621042430 F33.9 presenltyu off medication s feels doing well Chronic pain 91642927 R5 2 will continue present opioid Adult heal th examination 726402499 Z00.00 see risk assessment and counseling section Depression screening 171 677506 Z13.89 depression screening tool administer ed, entered into emr, scored and discussed, time greater than 7.5 minutes Intrinsic asthma 4736844 08 J45.20 INTERMITTE NT Asthma- Based on history, physical assessment and peak flow the patients asthma is in control. Will continue the present medication s and follow-up in 6 months. The asthma action plan has been discussed. The patient verbalizes understand ing medication use.. The patient is in agreement with this plan. Counseling 091246512 Z71 .9 Benign ess ential hypertension 1471426 I10 bp has improved no chest pain or sob Mixed hyperlipidemia 267 539771 E78.2 doesnt want medicine but will consider and work on doet [id number] Vicky Bentley MD , [facility], [address] [place] [address] 10/02/2019 16:14:12 10/05/2019 14:18:03 Chronic pain 95528422 R52 will continue present opioid Long-term drug therapy 453108716 Z79.899 Benign ess ential hypertension 6426029 I10 bp has improved no chest pain or sob Chronic ob structive pulmonary disease 41758678 J44.9 stable on meds will continue Opioid dependence 468581 00 F11.20 Recurrent major depressive episodes 254241269 F33.9 presenltyu off medication s feels doing well [id number] Shruthi Foy NP , [facility], [address] [place] [address] 11/24/2019 11:19:00 12/02/2019 14:19:52 Pain of right ankle joint 9493087340 6800433 M25.571 POssible avulsion fx vs sprain. Advised RICE, alt with warm soaks and gentle stretches. Avoid weight bearing next few days as able. Send portal message with update 2-3d. We want to avoid xray if possible and advised pt that often these fractures are not casted anyway. Pt agrees with plan. [id number] Vicky Bentley MD , [facility], [address] [place] [address] 01/28/2020 15:58:28 02/10/2020 10:48:45 Gastroesophageal reflux disease 806508167 K21.9 continue omeprazole Chronic pain 95739219 R5 2 will continue present opioid Long-term drug therapy 701477411 Z79.899 Benign ess ential hypertension 3565859 I10 bp has improved no chest pain or sob Chronic ob structive pulmonary disease 90321162 J44.9 stable on meds will continue Opioid dependence 127850 00 F11.20 Recurrent major depressive episodes 373517290 F33.9 presenltyu off medication s feels doing well [id number] Vicky Bentley MD , [facility], [address] [place] [address] 05/12/2020 10:30:04 05/20/2020 15:45:10 Adult health examination 805005412 Z00.00 see risk assessment and lifestyle change section Depression screening 171 047271 Z13.89 depression screening tool administer ed, entered into emr, scored and discussed, time greater than 7.5 minutes Screening for alcohol abuse 226894050 Z13.39 Counseling 999020102 Z71 .89 including cardiovasc ular risk reduction counseling Asthma 722783781 J45.90 9 [id number] Vicky Bentley MD , [facility], [address] [place] [address] 10/24/2020 11:51:19 10/27/2020 16:26:22 Chronic pain 99872953 R52 will continue present opioid will need tox screen and f/u 3 months Screening mammography 24 716668 Z12.31 Benign ess ential hypertension 0703731 I10 bp has improved on lisinopril now at goal no chest pain or sob Chronic ob structive pulmonary disease 77187806 J44.9 stable on meds will continue [id number] Vicky Bentley MD , [facility], [address] [place] [address] 02/20/2021 11:48:24 03/06/2021 06:39:07 Opioid dependence 12358966 F11.90 for chronic back pain well controlled Recurrent major depressive episodes 111397423 F33.9 presenltyu off medication s feels doing well Chronic pain 88020968 R5 2 will continue present opioid will need tox screen and f/u 3 months Screening for osteoporosis 442278818 Z13.820 Benign ess ential hypertension 5889940 I10 bp has improved on lisinopril but has cough will switch to losartan [id number] Vicky Bentley MD , [facility], [address] [place] [address] 04/05/2021 14:17:05 04/05/2021 15:31:28 Chronic pain 34405041 R52 will continue present opioid will need tox screen and f/u 3 months Long-term current use of opiate analgesic drug 6253585396 42072 Z79.891 Active or passive immunization 775986599 Z23 Benign ess ential hypertension 2787274 I10 bp has improved on lisinopri and switched to losartan due to cough bp elevated will increase losartan [id number] Vicky Bentley MD , [facility], [address] [place] [address] 05/04/2021 11:02:05 05/19/2021 11:33:31 Essential hypertension 95587108 I10 bp elevate will inc amlodipine Chronic ob structive pulmonary disease 23735733 J44.9 stable on meds will continue [id number] Vicky Bentley MD , [facility], [address] [place] [address] 08/23/2021 15:03:06 09/01/2021 01:03:18 Mild persistent asthma 717219829 J45.30 (symptoms or bronchodil ator use more than two days per week) PERSISTENT Mild Based on history, physical assessment , and peak flow, the patient's asthma is not in control. See orders for adjustment in plan. The asthma action plan has been discussed. The patient verbalizes understand ing of medication use. The patient is in agreement with this plan.discu ssed use of aerochambe r and daily use of flovent -the difference betwen rescue inhaler and maintenace inhaler and the role of inflammati on Essential hypertension 54023697 I10 bpat goal on meds Mixed hyperlipidemia 267 910112 E78.2 Cholestero l is at goal Continue to work on diet and exercise as discussed Chronic pain 27227022 R5 2 will continue present opioid will need tox screen and f/u 3 months Long-term current use of opiate analgesic drug 3559086865 17610 Z79.891 Long-term drug therapy 046437137 Z79.899 Asthma 014521903 J45.90 9 Opioid dependence 307187 00 F11.20 for chronic back pain well controlled [id number] Vicky Bentley MD , [facility], [address] [place] [address] 11/23/2021 11:45:38 12/12/2021 10:41:46 Chronic pain 61746785 R52 will continue present opioid will need tox screen and f/u 3 months Long-term current use of opiate analgesic drug 4814489002 56882 Z79.891 Asthma 855109481 J45.90 9 stable has flovent Benign ess ential hypertension 2072988 I10 bp has improved on lisinopri and switched to losartan due to cough bp elevated will increase losartan Displaceme nt of lumbar intervertebral disc without myelopathy 07667993 M51.26 cause of chronic back pain Mixed hyperlipidemia 267 650098 E78.2 Cholestero l is at goal Continue to work on diet and exercise as discussed Long-term drug therapy 892490848 Z79.899 Essential hypertension 29351317 I10 bpat goal on meds [id number] Vicky Bentley MD , [facility], [address] [place] [address] 02/14/2022 16:18:12 02/15/2022 09:49:42 Chronic pain 19677182 R52 will continue present opioid will need tox screen and f/u 3 months Long-term current use of opiate analgesic drug 9821221088 63918 Z79.891 chronic back pain that has required chronic opioids to remain functional Essential hypertension 31700867 I10 bpat goal on meds Chronic ob structive pulmonary disease 52504908 J44.9 stable on meds will continue Mixed hyperlipidemia 267 040821 E78.2 Cholestero l is at goal Continue to work on diet and exercise as discussed Long-term current use of drug therapy 075101997 Z79.899 Constipation 69623874 K5 9.00 Opioid dependence 529286 00 F11.20 for chronic back pain well controlled [id number] MD JONNY Koch, [facility], [address] [place] [address] 04/25/2022 15:46:45 05/03/2022 12:30:38 Adult health examination 401643026 Z00.00 see risk assessment and lifestyle change section Counseling 800358730 Z71 .9 including cardiovasc ular risk reduction counseling Depression screening 171 201689 Z13.31 depression screening tool administer ed, entered into emr, scored and discussed, time greater than 7.5 minutes Screening for alcohol abuse 107149425 Z13.39 Benign ess ential hypertension 2716240 I10 Mixed hyperlipidemia 267 334540 E78.2 Cholestero l is at goal Continue to work on diet and exercise as discussed Essential hypertension 70601180 I10 bpat goal on meds Hypertensi onBlood pressure is reasonable today.She will continue on amlodipine and hydrochlor othiazide, refills provided today. Osteoporosis 24505243 M8 1.0 Osteoporos isShe will continue on vitamin B12 and Kenneth vitamins for women daily.Enco uraged to exercise regularly. Prescripti on for 70 mg of alendronat e 1 tablet every week for 3 months [facility] [place] [place]. Instructio ns on its usage were given. side effects and how tro take were discussed Asthma 199714128 J45.90 9 stable has flovent Chronic ob structive pulmonary disease 44281953 J44.9 stable on meds will continue COPDShe will continue on Spiriva and ProAir, refills provided today. Chronic pain 75344638 R5 2 will continue present opioid will need tox screen and f/u 3 months Chronic painShe will continue on long-actin g morphine and oxycodone. This note has been generated by Sanna SCHNEIDER and edited by Colby Hernandez, Quality Documentat ion Specialist . [id number] Vicky Bentley MD , [facility], [address] [place] [address] 05/31/2022 11:10:05 07/13/2022 07:27:52 Chronic obstructive pulmonary disease 61576512 J44.9 COPDShe will continue on Spiriva and ProAir, refills provided today. exacerbati on has improved Pneumonia 321504561 J18. 9 improved [id number] Vicky Bentley MD , [facility], [address] [place] [address] 06/28/2022 10:54:36 06/28/2022 11:56:03 Chronic obstructive pulmonary disease 13413038 J44.9 COPDShe will continue on Spiriva and ProAir, refills provided today. exacerbati on has improved Benign ess ential hypertension 5397125 I10 Displaceme nt of lumbar intervertebral disc without myelopathy 31930151 M51.26 chronic pain controlled with opioids stable dose and feels keeps her functional Gastroesop hageal reflux disease 101263788 K21.9 stable on omeprazole has tried to stop beofre will continue [id number] Thaddeus Jaquez MD , [facility], [address] [place] [address] 07/31/2022 16:45:25 07/31/2022 17:59:23 Acute exacerbation of chronic obstructive pulmonary disease 864175027 J44.1 start meds, call if not MUCH better in 1-2 days Cough 89432061 R05.9 [id number] Kady Esteves MD , [facility], [address] [place] [address] 08/03/2022 14:15:09 08/03/2022 14:38:31 Acute exacerbation of chronic obstructive pulmonary disease 719401255 J44.1 extend prednisone , taper slowlycont inue and finish abxcall if not improving [id number] Vicky Bentley MD , [facility], [address] [place] [address] 10/01/2022 10:56:26 10/01/2022 14:12:39 Long-term current use of drug therapy 689417186 Z79.899 Chronic ob structive pulmonary disease 07388634 J44.9 COPDShe will continue on Spiriva and ProAir, refills provided today. exacerbati on has improved [id number] Vicky Bentley MD , [facility], [address] [place] [address] 12/28/2022 07:55:47 12/29/2022 09:48:33 Opioid dependence 91095334 F11.20 for chronic back pain well controlled Long-term current use of drug therapy 015951416 Z79.899 Osteoporosis 23074753 M8 1.0 Osteoporos isShe will continue on vitamin B12 and Kenneth vitamins for women daily.Enco uraged to exercise regularly. Prescripti on for 70 mg of alendronat e 1 tablet every week for 3 months was sent to [facility] in [place], [place]. Instructio ns on its usage were given. side effects and how tro take were discussed Encouraged to continue alendronat e once a week. Benign ess ential hypertension 8318326 I10 Chronic as thmatic bronchitis 650084530 J44.9 Explained in detail regarding the etiology [...] Madeline Nation, Quality Documentat ion Specialist . [id number] Vicky Bentley MD , [facility], [address] [place] [address] 03/18/2023 15:51:40 03/18/2023 16:48:34 Mild intermittent asthma 170114306 J45.20 (symptoms or bronchodil ator use at [...] with this plan. Active or passive immunization 658247682 Z23 Chronic ob structive pulmonary disease 46641521 J44.9 COPDShe will continue on Spiriva and [...] ns on usage were given. Opioid dependence 684602 00 F11.20 for chronic back pain well controlled Benign ess ential hypertension 3042312 I10 Hypertensi onContinue with current medical management . Chronic pain 17983750 R5 2 will continue present opioid will [...] by Isaiah Trejo Documentat ion Specialist . [id number] Vicky Bentley MD , [facility], [address] [place] [address] 05/31/2023 11:25:50 05/31/2023 17:18:50 Adult health examination 430795120 Z00.00 see risk assessment and lifestyle change section Depression screening 171 647419 Z13.31 depression screening tool administer ed Screening for alcohol abuse 665478301 Z13.39 Alcohol use screening tool administer ed Chronic pain 64582837 R5 2 will continue present opioid will [...] Long-term current use of opiate analgesic drug 4200447464 65250 Z79.891 chronic back pain that has required chronic opioids to remain functional Counseled by member of primary health care team 825794944 Z71.9 Today we discussed ways to reduce [...] daily aspirin. Chronic ob structive pulmonary disease 37485753 J44.9 COPDShe will continue on Spiriva and [...] pharmacy. Instructio ns on usage were given. [id number] Vicky Bentley MD , [facility], [address] [place] [address] 08/19/2023 09:09:05 08/19/2023 16:52:40 Screening mammography 23565703 Z12.31 Acute exac erbation of chronic obstructive pulmonary disease 764668123 J44.1 DyspneaExp lained in detail regarding the [...] Irving, Quality Documentat ion Specialist . Pneumonia 832539861 J18. 9 [id number] Vicky Bentley MD , [facility], [address] [place] [address] 09/11/2023 10:12:54 09/11/2023 11:06:30 Long-term current use of drug therapy 394152452 Z79.899 Chronic ob structive pulmonary disease 82837998 J44.9 COPDShe will continue on Spiriva and [...] usage were given. Benign ess ential hypertension 5865611 I10 Hypertensi onContinue with current medical management . see above Chronic pain 64324748 R5 2 will continue present opioid will [...] ns on usage were given. see above [id number] Thaddeus Jaquez MD , [facility], [address] [place] [address] 11/11/2023 08:15:02 11/11/2023 14:00:42 Chronic obstructive pulmonary disease 71451201 J44.9 Pt with COPD with 3 days of acutely worsening SOB and SALEH with hypoxia. Pt was place on 2 L NC and O2 sat went up to 95%. When was removed, dropped down to 90% again. When pt first presented, O2 sat was 77% after ambulation into office.Dis cussed pt needs ER evaluation and tx and transport called. Hypoxia 791380828 G47.34 [id number] Kayd Esteves MD , [facility], [address] [place] [address] 11/18/2023 10:34:29 11/19/2023 13:23:46 Chronic obstructive pulmonary disease 54236912 J44.9 continue w/ O2, discussed may be able to wean over the next 1-2 mos, goal O2 in low 90swill establish with pulmonolog ywill give 3 addl days prednisone given inspirator y and expiratory wheezing heard on exam todayconti nue w/ home inhalers and nebs prnf/u with worsening sx Hypoxemia 279375259 R09. 02 O2 sat around 90-93% at home on 2L RA at rest, 4L with movement Benign ess ential hypertension 3988552 I10 BP above goal todaypt has MM visit w/ PCP in 1 mos, will discuss then [id number] Vicky Bentley MD , [facility], [address] [place] [address] 12/16/2023 10:52:28 12/17/2023 12:22:58 Long-term current use of drug therapy 025293458 Z79.899 Osteoporosis 89166077 M8 1.0 Osteoporanthony Pritchard will continue on vitamin B12 and Kenneth vitamins for women daily.Enco uraged to exercise regularly. Prescripti on for 70 mg of alendronat e 1 tablet every week for 3 months was sent to [facility] in [place], [place]. Instructio ns on its usage were given. side effects and how tro take were discussed Encouraged to continue alendronat e once a week. Osteoporanthony Macario prescripti on refill for her osteoporos is medication has been provided. This note has been generated by Sanna SCHNEIDER and edited by Marianela Irving, Quality Documentat ion Specialist . Chronic ob structive pulmonary disease 90114365 J44.9 COPDShe will continue on Spiriva and [...] pharmacy. Instructio ns on usage were given. [id number] Vicky Bentley MD , [facility], [address] [place] [address] 04/09/2024 10:40:58 04/15/2024 11:14:01 Chronic pain 62704076 R52 will continue present opioid will need [...] Long-term current use of opiate analgesic drug 2850562085 32343 Z79.891 chronic back pain that has required chronic opioids to remain functional Long-term current use of drug therapy 411930232 Z79.899 Chronic ob structive pulmonary disease 91708085 J44.9 continue w/ O2, discussed may be able to wean over the next 1-2 mos, goal O2 in low 90swill establish with pulmonolog ywill give 3 addl days prednisone given inspirator y and expiratory wheezing heard on exam todayconti nue w/ home inhalers and nebs prnf/u with worsening sx Hypoxemia 212624148 R09. 02 O2 sat around 95 on ra has discontiju ed oxygen Benign ess ential hypertension 2878742 I10 BP at goal Osteoporosis 01608037 M8 1.0 Osteoporos isShe will continue on vitamin B12 and Kenneth vitamins for women daily.Enco uraged to exercise regularly. Prescripti on for 70 mg of alendronat e 1 tablet every week for 3 months was sent to [facility] in [place], [place]. Instructio ns on its usage were given. side effects and how tro take were discussed Encouraged to continue alendronat e once a week. Osteoporos iscontinue alendronat e tolerating well This note has been generated by Sanna SCHNEIDER and edited by Marianela Irving, Quality Documentat ion Specialist . [id number] Vicky Bentley MD , [facility], [address] [place] [address] 06/05/2024 11:18:08 06/09/2024 19:21:43 Adult health examination 470582334 Z00.00 see risk assessment and lifestyle change section Depression screening 171 552995 Z13.31 depression screening tool administer ed Screening for alcohol abuse 574807625 Z13.39 Alcohol use screening tool administer ed Screening for malignant neoplasm of colon 644570824 Z12.11 Referral for a DIRECT booked colonoscop y. This patient is a healthy ASA Class 1 or 2 patient (only mild systemic disease), or a STABLE, well controlled insulin dependent diabetic. They do not have serious cardiac disease ie IN/angiopl asty within 1 year, symptomati c CHF; renal failure with CKD 4 or 5; take Coumadin, Plavix, Aggrenox, etc. Asthma 805671804 J45.90 9 stable has flovent Benign ess ential hypertension 8809647 I10 BP at goal Chronic ob structive pulmonary disease 85665292 J44.9 continue w/ O2, discussed may be able to wean over the next 1-2 mos, goal O2 in low 90swill establish with pulmonolog ywill give 3 addl days prednisone given inspirator y and expiratory wheezing heard on exam todayconti nue w/ home inhalers and nebs prnf/u with worsening sx Chronic pain 55412833 R5 2 will continue present opioid will [...] usage were given. see above Opioid dependence 667734 00 F11.20 for chronic back pain well controlled Counseled by member of primary health care team 522271564 Z71.9 Today we discussed ways to reduce [...] practition er may recommend taking daily aspirin. [id number] DO JONNY SILVESTRE, [facility], [address] [place] [address] 07/14/2024 13:48:47 07/16/2024 09:03:17 Chronic obstructive pulmonary disease 26091875 J44.9 Chronic Obstructiv e Pulmonary Disease (COPD)Rece [...] low salt diet to prevent fluid retention. [id number] Vicky Bentley MD , [facility], [address] [place] [address] 11/19/2024 10:32:57 11/20/2024 10:43:56 Chronic pain 84470208 R52 will continue present opioid will need [...] Long-term current use of opiate analgesic drug 8807725470 60477 Z79.891 chronic back pain that has required chronic opioids to remain functional Benign ess ential hypertension 0588458 I10 BP at goal Chronic ob structive pulmonary disease 78199288 J44.9 continue w/ O2, discussed may be able to wean over the next 1-2 mos, goal O2 in low 90swill establish with pulmonolog ywill give 3 addl days prednisone given inspirator y and expiratory wheezing heard on exam todayconti nue w/ home inhalers and nebs prnf/u with worsening sx Opioid dependence 967429 00 F11.20 for chronic back pain well controlled Osteoporosis 69936139 M8 1.0 Osteoporos isShe will continue on vitamin B12 and Kenneth vitamins for women daily.Enco uraged to exercise regularly. Prescripti on for 70 mg of alendronat e 1 tablet every week for 3 months was sent to [facility] in [place], [place]. Instructio ns on its usage were given. side effects and how tro take were discussed Encouraged to continue alendronat e once a week. Osteoporos iscontinue alendronat e tolerating well This note has been generated by Sanna SCHNEIDER and edited by Marianela Irving, Quality Documentat ion Specialist . Prediabetes 900918976 R7 3.03 Health Concerns Section Related Observation LastModified by Organization Detai ls LastModified Time None Recorded Concern Status LastModified by Organization Details LastModified Time None Recorded Advance Directives Directive Y: spouse Payers Insurance Date Sequence Insurance Name Policy Number Policy Boyd Covered Member ID Boyd Member ID Guarantor Name 11/23/2024 2 ( - INDEMNITY) Bernie Oh [id number] Bernie Oh 12/25/2010 2 [facility] [employer] [id number] Tristan Adriano [id number] Bernie Oh 11/15/2024 1 [place]IC[place]: [employer] Bernie Oh [id number] Bernie Oh 03/16/2024 3 MEDIC[place]: [employer] Bernie Oh [id number] Bernie Oh Notes Date Note Type Note Provider Name and Address Organization Details Recorded Time 4 text/html MM History of present illness:The [...] She has a scheduled appointment with her art therapy specialist on 12/18/2023. Her art therapy specialist has prescribed a longer course of prednisone, [...] normal range.Mammogram was normal. Vicky Bentley MD [address] [place] [address], [phone], [facility] 12/18/2023 20:35:59 4 text/html MMThe patient is [...] lose weight and has consulted with a art therapy specialist. Her diet includes minimal consumption of bread [...] no trouble taking that. Vicky Bentley MD [address] [place] [address], [phone], [facility] 04/09/2024 12:22:52 4 text/html Physical Exam/FemaleReported bypatient.PHAPatient [...] increased pain with last reductiionTime for intake: minutes. History of present illness:The patient is [...] history of COVID-19 infection. Vicky Bentley MD [address] [place] [address], [phone], [facility] 06/06/2024 19:43:27 4 text/html 07/14/24- Pt here [...] drinking diet Pepsi. KLEBER ALCANTAR DO [address] [place], [phone], [facility] 07/16/2024 08:15:23 5 text/html History of Present IllnessThe patient is a 69 year old female with respiratory problems who presents for medication refills and follow-up. She is accompanied by her spouse.A few months ago, she experienced significant respiratory problems that required hospitalization. She currently uses a nebulizer twice a day and is on oxygen therapy, primarily at night. Her oxygen saturation levels are typically 94-95% at home without supplemental oxygen during the day, but she uses it while sleeping. She also has a portable oxygen concentrator for travel. No current respiratory distress is reported.Her current medications include alendronate for osteoporosis, amlodipine and chlorothiazide for blood pressure, Breztri for respiratory issues, long-acting morphine twice a day, and oxycodone up to four times a day as needed. She also uses a nasal spray and Proair inhaler as needed. She takes 800 mg of Motrin twice a day, cut in half each time.She is concerned about her weight, particularly around her abdomen, which she feels impacts her breathing. Despite regular exercise and a controlled diet, she finds it difficult to lose weight. Her BMI is 25, which is considered healthy. She walks three times a week and adjusts her activities based on her breathing capacity.She has a history of smoking, having quit 18 years ago. Her family history includes diabetes, and she monitors her blood sugar levels, which have been around 100-104. She mentions a previous hospitalization where she lost 10 pounds due to dietary restrictions and increased water intake. Vicky Bentley MD [address] [place] [address], [place], [phone], [facility] 11/19/2024 19:30:40 OBGyn Episode No OBEpisode recorded.
== END 2025-03-08 07:16 | disposition home or self-care (01) ==
LOC: HO.CT 07:15
PROVIDERS: PCP Family Medicine; Visit Provider Nurse Practitioner Family
DX: R91.1 Solitary pulmonary nodule (principal)
CPT/HCPCS: 71250

== ENCOUNTER 2025-03-12 07:04 | Outpatient (REF) | payer MEDICARE, OTHER, SELFPAY ==
--- NOTE | ~2025-03-12 | XR_ITS ---
EXAMINATION: XR WRIST, RIGHT CLINICAL INFORMATION: M25.531 - Pain in right wrist COMPARISON: March 05, 2025 demonstrated nondisplaced fracture distal radial metaphysis and ulnar styloid fracture. TECHNIQUE: PA, lateral, and oblique views of the right wrist. FINDINGS: There is a dorsal angulated impacted fracture distal metaphysis of the radius without callus formation. Well-corticated fracture styloid of the ulna. Subchondral cyst formation along the articular surface of the ulna. The carpal bones are intact with normal alignment. XR/XR wrist RT min 3V IMPRESSION: Nonunion dorsally angulated fracture, distal metaphysis right radius. Electronically signed by: Keith Meek MD 03/12/2025 09:24 AM EDT
--- OUTSIDE RECORDS SUMMARY | 2025-03-15 07:07 | XMS_ITS | Data Portability ---
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 Please visit our website [employer] for more patient resources. As part of [...] Details Appointments LAB Follow-Up 2024 08:10A M [facility] Lab Not available Not available Not available Medical Managemen t 15 2024 08:15A M Vicky Bentley MD Not available Not available Not available Wellness Visit 30 2024 10:00A M Vicky Bentley MD Not available Not available Not available Lab HbA1c (hemoglob in A1c), blood 2024 025 [facility], [address] [place] [address], [address], 11/20/2024 09:38:52 drug screen, urine - oxycodone & morphine last intake 11/19/24 7am & 11/18/24 DS 1200am Temp 94F 2024 025 [facility], [address] [place] [address], [address], 11/23/2024 14:10:27 drug screen, urine - oxycodone & morphine Date and Time of Last Dose: 04/09/24 7:30 AM & 04/09/24 1am temp: 94F 2023 024 [facility], [address] [place] [address], [address], 04/10/2024 10:40:39 drug screen, urine - Oxycodone 6 am & Morphine 12 am 12/16/23 No Temp Recorded 2023 024 [facility], [address] [place] [address], [address], 12/17/2023 10:06:00 Referral None recorded. Procedures colonosco py procedure (PROC) [address] Gastroenterol ogchristopher, [address] [place] [address], [address], 06/09/2024 12:38:43 Surgeries None recorded. Imaging None recorded. Medication Orders alendrona te 70 mg tablet [facility]24 025 [facility], [address] [facility], [facility], [place], [place], [id number], 11/19/2024 13:30:39 Breztri Aerospher e 160 mcg-9mcg- 4.8mcg/ac tuation HFA aerosol inhaler 2024 025 [facility] Pczg-Vl-Rqcw [facility], [address] [facility], [facility], [place], [place], [id number], 11/19/2024 13:28:10 hydrochlo rothiazid e 12.5 mg tablet 2024 025 [facility] Anjp-Yj-Ihgu [facility], [address] [facility], [facility], [place], [place], [phone], 11/19/2024 13:28:20 alendrona te 70 mg tablet 2023 024 [facility] Seuf-Fz-Qobb [facility], [address] [facility], [facility], [place], [place], [phone], 04/09/2024 12:23:10 hydrochlo rothiazid e 12.5 mg tablet 2023 024 [facility] Oeza-Bq-Qznf [facility], [address] [facility], [facility], [place], [place], [phone], 04/09/2024 12:23:11 Narcan 4 mg/actuat ion nasal spray 2023 024 [facility] Uwhp-Cc-Kluh [facility], [address] [facility], [facility], [place], [place], [id number], 04/09/2024 12:23:15 alendrona te 70 mg tablet 2023 024 MUKESH [facility] Rdki[facility]Cb[facility]ji [facility], [address], [place], [place], [id number], 12/16/2023 12:51:39 Patient TargetsNo targets recorded. Patient Instructions Encounter Date Encounter Id Patient Instructions Last Modified By Organization Details Last Modified Time 04/09/2024 [id number] My Health To Do List Specific Analgesia [...] and understands the properties of narcotic medication. [email or web address] Not available 04/09/2024 11:06:03 06/05/2024 [id number] high blood pressure: care instructions [email or web address] Not available 06/06/2024 19:43:22 learning about high blood pressure sesrick Not available 06/06/2024 19:43:22 07/14/2024 [id number] I am aware of [facility] inpatient facility discharge medications, the medication list above has been reconciled with those medications and reflects my understanding of an up to date medication list for this patient. [email or web address] Not available 07/14/2024 14:30:48 11/19/2024 [id number] high blood pressure: care instructions sesrick Not [...] and understands the properties of narcotic medication. [email or web address] Not available 11/19/2024 10:51:47 Reason for Referral None Reported. Results Created Date Observation Date Name Description Value Unit Range Abnormal Flag Note LastModifiedBy Organization Detail LastModifiedTime 12/16/19 24 12/17/2023 DRUG SCREE N-8, URINE , WITH CONFI RMATI ON GC/MS amphetamine NEG. negati ve Not Available [address], [address], 12/17/2023 10:06:00 12/16/19 24 12/17/2023 DRUG SCREE N-8, URINE , WITH CONFI RMATI ON GC/MS barbiturates NEG. negati ve Not Available [address], [address], 12/17/2023 10:06:00 12/16/19 24 12/17/2023 DRUG SCREE N-8, URINE , WITH CONFI RMATI ON GC/MS benzodiazepi ne NEG. negati ve Not Available [address], [address], 12/17/2023 10:06:00 12/16/19 24 12/17/2023 DRUG SCREE N-8, URINE , WITH CONFI RMATI ON GC/MS cocaine NEG. negati ve Not Available [address], [address], 12/17/2023 10:06:00 12/16/19 24 12/17/2023 DRUG SCREE N-8, URINE , WITH CONFI RMATI ON GC/MS opiates POS. negati ve GCMS= Sampl e sent to [facility] for confi rmati on by GC/MS . Not Available [address], [address], 12/17/2023 10:06:00 12/16/19 24 12/17/2023 DRUG SCREE N-8, URINE , WITH CONFI RMATI ON GC/MS methadone NEG. negati ve Not Available [address], [address], 12/17/2023 10:06:00 12/16/19 24 12/17/2023 DRUG SCREE N-8, URINE , WITH CONFI RMATI ON GC/MS fentanyl NEG. negati ve Syva EMIT II Limit s of Detec tion (cutt -off value s) [place] Expan d: Amphe tamin es: 1000 ng/ml Opiat es: 300 ng/ml Rica tuate s: 200 ng/ml Oxyco done 100 ng/ml Benzo diaze pines : 200 ng/ml Metha done 300 ng/ml Cocai ne: 300 ng/ml Fenta nyl 1 ng/ml Not Available [address], [address], 12/17/2023 10:06:00 12/16/19 24 12/17/2023 DRUG SCREE N-8, URINE , WITH CONFI RMATI ON GC/MS oxycodone POS. negati ve GCMS= Sampl e sent to [facility] for confi rmati on by GC/MS . Not Available [address], [address], 12/17/2023 10:06:00 12/16/19 24 12/22/2023 DRUG TOX MONIT ORING OPIAT ES EXPAN DED QN, U codeine NEGATI VE NG/mL <50 See Note 1 Not Available [facility] [address], [address], 12/22/2023 11:07:59 12/16/19 24 12/22/2023 DRUG TOX MONIT ORING OPIAT ES EXPAN DED QN, U hydrocodone NEGATI VE NG/mL <50 See Note 1 Not [facility] [address], [address], 12/22/2023 11:07:59 12/16/19 24 12/22/2023 DRUG TOX MONIT ORING OPIAT ES EXPAN DED QN, U hydromorphon e NEGATI VE NG/mL <50 See Note 1 Not Available [facility] [address], [place], [address], 12/22/2023 11:07:59 12/16/19 24 12/22/2023 DRUG TOX MONIT ORING OPIAT ES EXPAN DED QN, U morphine 4506 NG/mL <50 high See Note 1 Not Available [facility] [place] [facility] [address], [place], [address], 12/22/2023 11:07:59 12/16/19 24 12/22/2023 DRUG TOX MONIT ORING OPIAT ES EXPAN DED QN, U norhydrocodo ne NEGATI VE NG/mL <50 See Note 1 Not Available [facility] [place] [facility] [address], [place], [address], 12/22/2023 11:07:59 12/16/19 24 12/22/2023 DRUG TOX MONIT ORING OPIAT ES EXPAN DED QN, U noroxycodone 1671 NG/mL <50 high See Note 1 Not Available [facility] [place] [facility] [address], [place], [address], 12/22/2023 11:07:59 12/16/19 24 12/22/2023 DRUG TOX MONIT ORING OPIAT ES EXPAN DED QN, U oxycodone 1775 NG/mL <50 high See Note 1 Not Available [facility] [place] [facility] [address], [place], [address], 12/22/2023 11:07:59 12/16/19 24 12/22/2023 DRUG TOX MONIT ORING OPIAT ES EXPAN DED QN, U oxymorphone 2246 NG/mL <50 high See Note 1 Not Available [facility] [place] [facility] [address], [place], [address], 12/22/2023 11:07:59 12/16/19 24 12/22/2023 DRUG TOX [...] alist : [phone] X [phone] ( [phone] ), M-F, 8am-6 pm EST. Not Available [facility] [place] [facility] [address], [place], [address], 12/22/2023 11:07:59 03/19/20 24 03/23/2024 BASIC METAB OLIC PANEL glucose 105 mg/dL 70-100 high Not Available [address], [address], 03/23/2024 12:11:20 03/19/20 24 03/23/2024 BASIC METAB OLIC PANEL BUN 20 mg/dL 7-18 high Not Available [address], [address], 03/23/2024 12:11:20 03/19/20 24 03/23/2024 BASIC METAB OLIC PANEL creatinine 0.8 mg/dL 0.8-1. 3 Not Available [address], [address], 03/23/2024 12:11:20 03/19/20 24 03/23/2024 BASIC METAB OLIC PANEL B/C 25.0 ratio Not Available [address], [address], 03/23/2024 12:11:20 03/19/20 24 03/23/2024 BASIC METAB [...] be used in pregn elvira. Not Available [address], [address], 03/23/2024 12:11:20 03/19/20 24 03/23/2024 BASIC METAB OLIC PANEL sodium 143 mmol/ L 136-14 5 Not Available [address], [address], 03/23/2024 12:11:20 03/19/20 24 03/23/2024 BASIC METAB OLIC PANEL potassium 4.0 mmol/ L 3.5-5. 1 Not Available [address], [address], 03/23/2024 12:11:20 03/19/20 24 03/23/2024 BASIC METAB OLIC PANEL chloride 100 mmol/ L 96-107 Not Available [address], [address], 03/23/2024 12:11:20 03/19/20 24 03/23/2024 BASIC METAB OLIC PANEL anion gap 10.5 5.0-15 .0 Not Available [address], [address], 03/23/2024 12:11:20 03/19/20 24 03/23/2024 BASIC METAB OLIC PANEL CO2 33 mmol/ L 21-32 high Not Available [address], [address], 03/23/2024 12:11:20 03/19/20 24 03/23/2024 BASIC METAB OLIC PANEL calcium 8.6 mg/dL 8.5-10 .3 Not Available [address], [address], 03/23/2024 12:11:20 03/19/20 24 03/23/2024 LIPID PANEL cholesterol 215 mg/dL <200 mg/dl Nhung able 200-2 39 mg/dl Borde rline High >240 mg/dl High Not Available [address], [address], 03/23/2024 12:11:21 03/19/20 24 03/23/2024 LIPID PANEL triglyceride s 95 mg/dL <150 mg/dL Latoya l 150-1 99 mg/dL Borde rline High 200-4 99 mg/dL High >500 mg/dL Very High Not Available [address], [address], 03/23/2024 12:11:21 03/19/20 24 03/23/2024 LIPID PANEL direct HDL 62 mg/dL <40 mg/dl - Major Risk for CHD >60 mg/dl - Negat ezequiel Risk for CHD Not Available [address], [address], 03/23/2024 12:11:21 03/19/20 24 03/23/2024 LDL - [...] r is not nikkorosie chavez. Not Available [address], [address], 03/23/2024 12:11:22 04/09/20 24 04/10/2024 DRUG SCREE N-8, URINE , WITH CONFI RMATI ON GC/MS amphetamine NEG. negati ve Not Available [address], [address], 04/10/2024 10:40:39 04/09/20 24 04/10/2024 DRUG SCREE N-8, URINE , WITH CONFI RMATI ON GC/MS barbiturates NEG. negati ve Not Available [address], [address], 04/10/2024 10:40:39 04/09/20 24 04/10/2024 DRUG SCREE N-8, URINE , WITH CONFI RMATI ON GC/MS benzodiazepi ne NEG. negati ve Not Available [address], [address], 04/10/2024 10:40:39 04/09/20 24 04/10/2024 DRUG SCREE N-8, URINE , WITH CONFI RMATI ON GC/MS cocaine NEG. negati ve Not Available [address], [address], 04/10/2024 10:40:39 04/09/20 24 04/10/2024 DRUG SCREE N-8, URINE , WITH CONFI RMATI ON GC/MS opiates POS. negati ve GCOP= Urine sampl e [facility] for confi rmati on of opiat es by GC/MS . Not Available [address], [address], 04/10/2024 10:40:39 04/09/20 24 04/10/2024 DRUG SCREE N-8, URINE , WITH CONFI RMATI ON GC/MS methadone NEG. negati ve Not Available [address], [address], 04/10/2024 10:40:39 04/09/20 24 04/10/2024 DRUG SCREE N-8, URINE , WITH CONFI RMATI ON GC/MS fentanyl NEG. negati ve Syva EMIT II Limit s of Detec tion (cutt -off value s) [place] Expan d: Amphe tamin es: 1000 ng/ml Opiat es: 300 ng/ml Rica tuate s: 200 ng/ml Oxyco done 100 ng/ml Benzo diaze pines : 200 ng/ml Metha done 300 ng/ml Cocai ne: 300 ng/ml Fenta nyl 1 ng/ml Not Available [address], [address], 04/10/2024 10:40:39 04/09/20 24 04/10/2024 DRUG SCREE N-8, URINE , WITH CONFI RMATI ON GC/MS oxycodone POS. negati ve GCOP= Urine sampl e sent to [facility] for confi rmati on of opiat es by GC/MS . Not Available [address], [address], 04/10/2024 10:40:39 04/09/20 24 04/12/2024 DRUG TOX MONIT ORING OPIAT ES EXPAN DED QN, U codeine NEGATI VE NG/mL <50 See Note 1 Not Available [facility] [place] [facility] [address] [place] [address], [place], [address], 04/12/2024 19:23:43 04/09/20 24 04/12/2024 DRUG TOX MONIT ORING OPIAT ES EXPAN DED QN, U hydrocodone NEGATI VE NG/mL <50 See Note 1 Not Available [facility] [place] [facility] [address], [place], [address], 04/12/2024 19:23:43 04/09/20 24 04/12/2024 DRUG TOX MONIT ORING OPIAT ES EXPAN DED QN, U hydromorphon e NEGATI VE NG/mL <50 See Note 1 Not Available [facility] [place] [facility] [address], [place], [address], 04/12/2024 19:23:43 04/09/20 24 04/12/2024 DRUG TOX MONIT ORING OPIAT ES EXPAN DED QN, U morphine 2105 NG/mL <50 high See Note 1 Not Available [facility] [place] [facility] [address], [place], [address], 04/12/2024 19:23:43 04/09/20 24 04/12/2024 DRUG TOX MONIT ORING OPIAT ES EXPAN DED QN, U norhydrocodo ne NEGATI VE NG/mL <50 See Note 1 Not Available [facility] [place] [facility] [address], [place], [address], 04/12/2024 19:23:43 04/09/20 24 04/12/2024 DRUG TOX MONIT ORING OPIAT ES EXPAN DED QN, U noroxycodone 491 NG/mL <50 high See Note 1 Not Available [facility] [place] [facility] [address], [place], [address], 04/12/2024 19:23:43 04/09/20 24 04/12/2024 DRUG TOX MONIT ORING OPIAT ES EXPAN DED QN, U oxycodone 561 NG/mL <50 high See Note 1 Not Available [facility] [place] [facility] [address] [place], [place], [address], 04/12/2024 19:23:43 04/09/20 24 04/12/2024 DRUG TOX MONIT ORING OPIAT ES EXPAN DED QN, U oxymorphone 1533 NG/mL <50 high See Note 1 Not Available [facility] [place] [facility] [address] [place], [place], [address], 04/12/2024 19:23:43 04/09/20 24 04/12/2024 DRUG TOX [...] alist : [phone] X TOX ([phone] ), M-F, 8am-6 pm EST. Not Available [facility] [place] [facility] [address] [place], [place], [address], 04/12/2024 19:23:43 11/20/19 25 11/20/2024 HGB A1C [...] furth er confi rmati on Not Available [address], [address], 11/20/2024 09:38:52 11/20/19 25 11/20/2024 HGB A1C estimated average glucose 139.9 mg/dL Not Available [address], [address], 11/20/2024 09:38:52 11/20/19 25 11/23/2024 BASIC METAB OLIC PANEL glucose 113 mg/dL 70-100 high Not Available [address], [address], 11/23/2024 11:21:55 11/20/19 25 11/23/2024 BASIC METAB OLIC PANEL BUN 18 mg/dL 7-18 Not Available [address], [address], 11/23/2024 11:21:55 11/20/19 25 11/23/2024 BASIC METAB OLIC PANEL creatinine 0.8 mg/dL 0.8-1. 3 Not Available [address], [address], 11/23/2024 11:21:55 11/20/19 25 11/23/2024 BASIC METAB OLIC PANEL B/C 22.5 ratio Not Available [address], [address], 11/23/2024 11:21:55 11/20/19 25 11/23/2024 BASIC METAB [...] be used in pregn elvira. Not Available [address], [address], 11/23/2024 11:21:55 11/20/1911/23/2024 BASIC METAB OLIC PANEL sodium 143 mmol/ L 136-14 5 Not Available [address], [address], 11/23/2024 11:21:55 11/20/19 25 11/23/2024 BASIC METAB OLIC PANEL potassium 4.0 mmol/ L 3.5-5. 1 Not Available [address], [address], 11/23/2024 11:21:55 11/20/19 25 11/23/2024 BASIC METAB OLIC PANEL chloride 103 mmol/ L 96-107 Not Available [address], [address], 11/23/2024 11:21:55 11/20/19 25 11/23/2024 BASIC METAB OLIC PANEL anion gap 10.9 5.0-15 .0 Not Available [address], [address], 11/23/2024 11:21:55 11/20/19 25 11/23/2024 BASIC METAB OLIC PANEL CO2 29 mmol/ L 21-32 Not Available [address], [address], 11/23/2024 11:21:55 11/20/19 25 11/23/2024 BASIC METAB OLIC PANEL calcium 9.1 mg/dL 8.5-10 .3 Not Available [address], [address], 11/23/2024 11:21:55 11/20/19 25 11/23/2024 LIPID PANEL cholesterol 223 mg/dL <200 mg/dl Nhung able 200-2 39 mg/dl Borde rline High >240 mg/dl High Not Available [address], [address], 11/23/2024 11:21:57 11/20/19 25 11/23/2024 LIPID PANEL triglyceride s 139 mg/dL <150 mg/dL Latoya l 150-1 99 mg/dL Borde rline High 200-4 99 mg/dL High >500 mg/dL Very High Not Available [address], [address], 11/23/2024 11:21:57 11/20/19 25 11/23/2024 LIPID PANEL direct HDL 65 mg/dL <40 mg/dl - Major Risk for CHD >60 mg/dl - Negat ezequiel Risk for CHD Not Available [address], [address], 11/23/2024 11:21:57 11/20/19 25 11/23/2024 DIREC T LDL direct LDL 138 mg/dL RISK CATEG ORY LDL GOAL _ CHD or CHD Risk Equiv alent s <100 mg/dl (10-y ear risk >20%) 2+ Risk Facto rs <130 mg/dl (10-y ear risk <= 20%) 0-1 Risk Facto r <160 mg/dl [facility] e with 0-1 risk facto r have a 10 year risk <10%, thus 10 year risk asses ment in peopl e with 0-1 risk facto r is not necrosie kathy. Not Available [address], [address], 11/23/2024 11:21:58 11/20/19 25 11/23/2024 DRUG SCREE N-8, URINE , WITH CONFI RMATI ON GC/MS amphetamine NEG. negati ve Not Available [address], [address], 11/23/2024 14:10:27 11/20/19 25 11/23/2024 DRUG SCREE N-8, URINE , WITH CONFI RMATI ON GC/MS barbiturates NEG. negati ve Not Available [address], [address], 11/23/2024 14:10:27 11/20/19 25 11/23/2024 DRUG SCREE N-8, URINE , WITH CONFI RMATI ON GC/MS benzodiazepi ne NEG. negati ve Not Available [address], [address], 11/23/2024 14:10:27 11/20/19 25 11/23/2024 DRUG SCREE N-8, URINE , WITH CONFI RMATI ON GC/MS cocaine NEG. negati ve Not Available [address], [address], 11/23/2024 14:10:27 11/20/19 25 11/23/2024 DRUG SCREE N-8, URINE , WITH CONFI RMATI ON GC/MS opiates POS. negati ve GCMS= Sampl e sent to [facility] confi rmati on by GC/MS . Not Available [address], [address], 11/23/2024 14:10:27 11/20/19 25 11/23/2024 DRUG SCREE N-8, URINE , WITH CONFI RMATI ON GC/MS methadone NEG. negati ve Not Available [address], [address], 11/23/2024 14:10:27 11/20/19 25 11/23/2024 DRUG SCREE [...] ng/ml Fenta nyl 1 ng/ml Not Available [address], [address], 11/23/2024 14:10:27 11/20/19 25 11/23/2024 DRUG SCREE N-8, URINE , WITH CONFI RMATI ON GC/MS oxycodone POS. negati ve GCMS= Sampl e sent to [facility] for confi rmati on by GC/MS . Not Available [address], [address], 11/23/2024 14:10:27 11/20/19 25 11/25/2024 DRUG TOX MONIT ORING OPIAT ES EXPAN DED QN, U codeine NEGATI VE NG/mL <50 See Note 1 Not Available [facility] [address], [address], 11/25/2024 09:08:15 11/20/19 25 11/25/2024 DRUG TOX MONIT ORING OPIAT ES EXPAN DED QN, U hydrocodone NEGATI VE NG/mL <50 See Note 1 Not Available [facility] [address], [address], 11/25/2024 09:08:15 11/20/19 25 11/25/2024 DRUG TOX MONIT ORING OPIAT ES EXPAN DED QN, U hydromorphon e NEGATI VE NG/mL <50 See Note 1 Not Available [facility] [address] [place], [address], 11/25/2024 09:08:15 11/20/19 25 11/25/2024 DRUG TOX MONIT ORING OPIAT ES EXPAN DED QN, U morphine 3611 NG/mL <50 high See Note 1 Not Available [facility] [place] [facility] [address], [place], [address], 11/25/2024 09:08:15 11/20/19 25 11/25/2024 DRUG TOX MONIT ORING OPIAT ES EXPAN DED QN, U norhydrocodo ne NEGATI VE NG/mL <50 See Note 1 Not Available [facility] [place] [facility] [address], [place], [address], 11/25/2024 09:08:15 11/20/1911/25/2024 DRUG TOX MONIT ORING OPIAT ES EXPAN DED QN, U noroxycodone 990 NG/mL <50 high See Note 1 Not Available [facility] [place] [facility] [address], [place], [address], 11/25/2024 09:08:15 11/20/19 25 11/25/2024 DRUG TOX MONIT ORING OPIAT ES EXPAN DED QN, U oxycodone 864 NG/mL <50 high See Note 1 Not Available [facility] [place] [facility] [address], [place], [address], 11/25/2024 09:08:15 11/20/19 25 11/25/2024 DRUG TOX MONIT ORING OPIAT ES EXPAN DED QN, U oxymorphone 1254 NG/mL <50 high See Note 1 Not Available [facility] [place] [facility] [address], [place], [address], 11/25/2024 09:08:15 11/20/1911/25/2024 DRUG TOX MONIT ORING [...] alist : [phone] ( [phone] ), M-F, 8am-6 pm EST. Not Available [facility] [place] [facility] [address] [place]it B, [place], [address], 11/25/2024 09:08:15 12/14/19 24 12/13/2023 MAMMO , [...] Leo beckman Physic avery: Brenda Alexander ms [facility] (Imaging) [address], [place], [address], 12/16/2023 08:20:33 06/29/20 24 06/29/2024 XR, chest No observ ation record ed. [address], [address], 06/30/2024 12:46:10 09/03/19 25 06/29/2024 XR, chest No observ ation record ed. [address], [address], 09/03/2024 10:32:21 09/03/19 25 06/29/2024 XR, chest No observ ation record ed. [address], [address], 09/04/2024 08:33:47 09/03/19 25 09/03/2024 XR, chest [...] Readsusan beckman Physic avery: Brenda Alexander ms [facility] (Imaging) [address] [place], [address], 09/03/2024 15:33:10 09/10/19 25 09/03/2024 XR, chest [...] Leo beckman Physic avery: Brenda Alexander ms [facility] (Imaging) [address] [place], [address], 09/10/2024 07:26:54 12/17/19 25 12/14/2024 CT, chest No observ ation record ed. [address], [place], [address], 01/08/2025 15:31:24 03/05/20 25 03/05/2025 XR, wrist , 2 view No observ ation record ed. [facility] [address], [place], [address], 03/10/2025 13:09:42 03/08/20 25 03/08/2025 CT, chest , w/o contr ast No observ ation record ed. [facility] [address], [place], [address], 03/10/2025 13:09:42 Result Notes Documentation Provider Name [...] radiographs become available. Reading Physician: Juancho wolf [facility] 09/03/2024 15:33:10 Xr, Chest : Addendum: [...] radiographs become available. Reading Physician: Juancho wolf [facility] 09/10/2024 07:26:55 Problems Name Problem SNOMED Code Status Onset Date Resolution Date Notes Provider Name and Address Organization Details Recorded Time Recurren t major depressi ve episodes 080566909 Active 2011 Not Available [facility] 0 14:16:47 Major depressi on, melancho lic type 862183135 Completed 201311/25/2020 Removal Reason: recurren t coded and on active problem list Rita SHERRY Arevalo, [facility] 1 06:21:11 Chronic obstruct ezequiel pulmonar y disease 80026132 Active Not Available [facility] 0 14:16:47 Benign essentia l hyperten joshua 7310130 Active 2018 Not Available [facility] 0 14:16:47 Mixed hyperlip idemia 468153754 Active 2018 Not Available [facility] 0 14:16:47 Opioid dependen ce 52975854 Active 2020 coded 01/28/20 Virtual Visit Rita SHERRY Arevalo, [facility] 1 06:21:51 Essentia l hyperten joshua 58257727 Active 2021 Vicky Bentley MD [address] [place] [address], [address] [place] [address] , [facility] 2 12:24:07 History of acute respirat ory failure [id number] 617820 Active 2023 Shruthi Foy NP [address] [place] [address], [phone] , [facility] 4 09:55:01 Nodule of lung 322592990 Active 2023 Shruthi Foy NP [address] [place] [address], [phone] , [facility] 4 09:55:24 Closed fracture of right wrist [id number] 363109 Active 2024 per ER note 03/05/25, to f/u w/ ortho Darling Weaver RN BSN maryann, [facility] 5 14:51:27 Acquired trigger finger 2376018 Completed 200404/02/2011 Not Available [facility] 3 03:06:02 Contusio n [id number] Completed 200102/06/2011 Not Available [facility] 3 03:06:02 Open wound of finger 603208813 Completed 200002/06/2011 Not Available [facility] 3 03:06:02 Contact dermatit is 10130139 Completed 200204/02/2011 Not Available [facility] 3 03:06:02 Gastroes ophageal reflux disease 967001311 Active Not Available [facility] [facility] 0 14:16:48 Cellulit is and abscess of hand excludin g digits Completed 200002/06/2011 Not Available [facility] 3 03:06:02 Diarrhea 96892960 Completed 200204/02/2011 Not Available [facility] 3 03:06:02 Disorder of trunk 601816501 Completed 200102/06/2011 Not Available [facility] 3 03:06:02 Sciatica 85985534 Completed 200104/02/2011 Not Available [facility] 3 03:06:02 Contact dermatit is due to plants, except food Completed 200002/06/2011 Not Available [facility] 3 03:06:02 Emphysem atous bronchit is 254695744 Active Not Available [facility] 0 14:16:47 Chronic asthmati c bronchit is 165844962 Active 2003 Not Available [facility] 0 14:16:47 Chronic pain 87873002 Active Not Available [facility] 0 14:16:47 Chronic pain 59862387 Completed 04/02/2011 Not Available [facility] 3 03:06:02 Low back pain 984850685 Completed 200102/06/2011 Not Available [facility] 3 03:06:02 Displace ment of lumbar interver tebral disc without myelopat hy 77402510 Active 2001 Not Available [facility] 0 14:16:48 Asthma 704133772 Active 1999 Not Available [facility] 0 14:16:47 Pain in limb 94235423 Completed 200102/06/2011 Not Available [facility] 3 03:06:02 Cellulit is and abscess of trunk 974682949 Completed 200204/02/2011 Not Available [facility] 3 03:06:02 Problem Notes None recorded. Procedures Surgical History Date Name Laterality Status Provider Name and Address Organization Details Recorded Time 07/14/20 24 Post hospital/SNF follow-up/Transiti onal Care completed Angy Yi [facility] 07/14/2024 14:30:48 06/05/20 24 Medicare Wellness Visit completed Skye Steve [facility] 06/05/2024 11:34:39 06/05/20 24 Cardiovascular disease risk reduction counseling completed Vciky Bentley MD [address] [place] [address], [phone], [facility] 06/06/2024 19:42:41 11/18/19 24 Oxygen Administration completed Yi Mckenzie RN [facility] 11/18/2023 11:29:28 11/11/19 24 Oxygen Administration completed Mariza Martin LPN [facility] 11/11/2023 09:16:23 05/31/20 23 Medicare Wellness Visit completed Neil Brewster CMA [facility] 05/31/2023 12:36:43 05/31/20 23 Cardiovascular disease risk reduction counseling completed Vicky Bentley MD [address] [place] [address], [phone], [facility] 06/02/2023 19:50:47 03/18/20 23 Asthma Control Test (12 + years old) completed Carlos Black MA [facility] 03/18/2023 16:15:16 05/31/20 22 Post hospital/SNF follow-up/Transiti onal Care completed Neil Brewster [facility] 05/31/2022 08:46:05 04/25/20 22 Medicare Wellness Visit completed Rima yee MA [facility] 04/25/2022 08:34:47 04/25/20 22 Alcohol use screening completed Rima yee MA [facility] 04/25/2022 08:34:47 04/25/20 22 Cardiovascular disease risk reduction counseling completed Rima yee MA [facility] 04/25/2022 08:34:47 08/23/20 21 Asthma Control Test (12 + years old) completed Malgorzata Campo MA [facility] 08/22/2021 15:11:05 05/12/20 20 prevention-cardiov ascular risk reduction counseling completed Anna Montelongo MA [facility] 05/11/2020 16:37:01 05/12/20 20 prevention-annual alcohol misuse screening completed Anna Montelongo MA [facility] 05/11/2020 16:37:01 05/12/20 20 Medicare Annual Wellness Visit completed Anna Montelongo MA [facility] 05/11/2020 16:37:01 05/11/20 19 Medicare Wellness Visit [facility] 05/11/2019 15:29:26 05/11/20 19 Asthma Control Test (12 + years old) [facility] 05/11/2019 15:37:53 08/16/20 16 Cholecystectomy completed Kleber Piper MD [address] [place] [address], [phone], [facility] 08/17/2016 16:42:42 09/26/19 16 Medicare Wellness Visit completed Kleber Piper MD [address] [place] [address], [phone], [facility] 09/26/2015 09:39:10 03/17/20 13 Asthma Control Test (12 + years old) completed Kleber Piper MD [address] [place] [address], [phone], [facility] 03/17/2013 13:44:57 Tonsillectomy completed Not Available [facility] 07/19/2011 06:05:52 Imaging Results None recorded. Procedure Notes None recorded. Medical Equipment None Reported. Allergies Allergen ID Allergen Name Allergen Category Reaction Reaction Severity Criticality Documentation Date Start Date Code Code System Note Provider Name and Address Organization Details Recorded Time 192517 budesonid e medicatio n wheezing severe high 03/18/2023 RxNorm TIMA Rutherford [facility] 3 16:07:55 Medications Name Sig Start [...] Available Not Available No t Available Fluzone 4910-0626 (PF) 45 mcg (15 mcg x 3)/0.5 mL intramusc ular syringe TO BE ADMINIST ERED BY [employer] FOR IMMUNIZA TION 01/09 completed Not Available [...] route for suspecte d opioid overdose . [place] 1 mL in one nostril. Repeat after 3 minutes if no or minimal response 2023 active Not Available Not Available Not Avai lable Flucelvax Quad (PF) 60 mcg (15 mcg x 4)/0.5 mL IM syringe TO BE ADMINIST ERED BY [employer] FOR IMMUNIZA TION 07/04 completed Not Available [...] % 2 L/min 96 /min 25.6 kg/m2 43417.2 6 g 114/66 mm[Hg] Skye Steve MA [facility] 5 11:03:21 Date Recorded Body height Body mass index (BMI) Body weight Heart rate Systolic And Diastolic Provider Name and Address Organization Details Last Updated DateTime 12/16/2023 162.56 cm 24.9 kg/m2 78008.89 g 88 /min 122/68 mm[Hg] Skye Steve MA [facility] 12/16/2023 11:35:41 Date Recorded Body height Body mass index (BMI) Body weight Heart rate Oxygen saturation Oxygen saturation in Arterial blood by Pulse oximetry Inhaled oxygen flow rate Systolic And Diastolic Provider Name and Address Organization Details Last Updated DateTime 5 162.56 cm 26.4 kg/m2 98744.2 2 g 80 /min 94 % 94 % 3 L/min 140/70 mm[Hg] Tabby Garza LPN [facility] 5 12:30:15 Date Recorded Body height Oxygen saturation Oxygen saturation in Arterial blood by Pulse oximetry Heart rate Body mass index (BMI) Body weight Systolic And Diastolic Provider Name and Address Organization Details Last Updated DateTime 4 162.56 cm 95 % 95 % 76 /min 26.3 kg/m2 07208.7 3 g 126/72 mm[Hg] Skye Steve MA [facility] 4 11:14:02 Date Recorded Body height Oxygen saturation Oxygen saturation in Arterial blood by Pulse oximetry Heart rate Body mass index (BMI) Body weight Systolic And Diastolic Provider Name and Address Organization Details Last Updated DateTime 4 162.56 cm 97 % 97 % 86 /min 26.5 kg/m2 01444.0 2 g 122/66 mm[Hg] Skye Steve MA [facility] 4 11:42:03 Date Recorded Body height Body mass index (BMI) Body weight Heart rate Oxygen saturation Oxygen saturation in Arterial blood by Pulse oximetry Systolic And Diastolic Provider Name and Address Organization Details Last Updated DateTime 4 162.56 cm 25.6 kg/m2 74981.3 6 g 94 /min 94 % 94 % 100/62 mm[Hg] Angy Yi [facility] 4 14:37:12 Social History Question Answer [...] No Waiting For Grandson To Be Born [email or web address] Information not available 06/05/2024 When Did You Quit Smoking? 16+yearssin feliciano [email or web address] Information not available 08/19/2023 Are There Any Guns Present In Your Home? Yes LOCKED Information not available 10/04/2011 Do You Use Insect Repellent Routinely? No [email or web address] Information not available 06/05/2024 Live Alone Or [...] Of Your Most Recent Tobacco Screening? 11/19/2024 [email or web address] Information not available 11/19/2024 How Many Children Do You Have? 3 7 Information not available 07/19/2011 What Is Your Current Pack Years? 10-19packye ars [email or web address] Information not available 04/09/2024 What Is Your [...] How Much Tobacco Do You Smoke? No [email or web address] Information not available 04/09/2024 What Types Of Sporting Activities Do You Participate In? None Information not available 07/19/2011 General Stress Level Low [email or web address] Information not available 10/01/2022 Do You Use Sunscreen Routinely? No [email or web address] Information not available 06/05/2024 How Many Years Have You Smoked Tobacco? 15 alot [email or web address] Information not available 04/09/2024 Do You Have [...] level of alcohol consumption? Occasional veryvery rare [email or web address] Information not available 06/05/2024 Do you or [...] exercise level? Moderate 5 miles walking daily [email or web address] Information not available 06/05/2024 Mental Status Question [...] Y GERD Y Gynecological History Statement/Question Response Obstetrics History GPAL:G 0 P 0 0 0 0 Immunizations Vaccine Type Date Status Note Provider Nam e and Address Organization Details Recorded Time influenza, unspecified formulation 3 completed Not Available [facility] 07/18/2011 05:21:07 influenza, unspecified formulation 4 completed Not Available [facility] 07/18/2011 05:21:07 Influenza, split virus, trivalent, preservative 1 completed Not Available [facility] 09/19/2019 02:38:55 pneumococcal polysaccharide PPV23 1 completed Not Available [facility] 09/19/2019 02:14:32 Td(adult) unspecified formulation 5 completed Not Available [facility] 07/18/2011 05:21:07 Tdap 3 completed Not Available [facility] 09/19/2019 02:29:25 Influenza, split virus, trivalent, PF 4 completed Not Available [facility] 09/19/2019 02:26:36 Influenza, high-dose, trivalent, PF 3 completed Not Available [facility] 10/01/2022 10:56:31 Influenza, split virus, quadrivalent, PF 3 completed Not Available [facility] 10/01/2022 10:56:31 Influenza, split virus, quadrivalent, preservative 8 completed Not Available [facility] 10/01/2022 10:56:30 Influenza, split virus, quadrivalent, preservative 9 completed Not Available [facility] 10/01/2022 10:56:30 pneumococcal polysaccharide PPV23 1 completed Malgorzata Campo MA [facility] 04/05/2021 15:32:17 Td (adult), 2 Lf tetanus toxoid, preservative free, adsorbed 3 completed Vicky Bentley MD [address] [place] [address], [phone], [facility] 03/23/2023 14:44:29 COVID-19, mRNA, LNP-S, PF, [...] 25mcg/0.25 mL dose 2 completed TIMA Anglin [facility] 12/16/2023 11:12:22 zoster recombinant 2 completed [...] mcg/0.3 mL 4 completed Skye Steve MA [facility], [facility] 11/19/2024 10:55:33 influenza, unspecified formulation 0 completed Not Available [facility] 07/18/2011 05:20:34 Past Encounters Encounter ID Performer Location Encounter Start Date Encounter Closed Date Diagnosis/Indication Diagnosis SNOMED-CT Code Diagnosis ICD10 Code Diagnosis Note [id number] [facility] , [facility], [address] [place] [address] 08/05/2000 14:05:00 09/22/2008 02:02:29 [id number] Tabby Chowdary MD [facility] [address] [place] [address] 01/12/2001 14:30:00 09/22/2008 02:02:29 [id number] Antony Kerns III, MD [facility] [address] [place] [address] 01/18/2001 10:45:00 09/22/2008 02:02:29 [id number] Iker Serrano MD [facility] [address] [place] [address] 02/22/2001 11:45:00 09/22/2008 02:02:29 [id number] Bee Alvarado NP [facility], [address] [place] [address] 08/22/2001 09:00:00 09/22/2008 02:02:29 [id number] [facility] , [address] [address] 10/07/2001 09:30:00 09/22/2008 02:02:29 [id number] Leroy Adams MD Radiology , [address] [address] 10/07/2001 00:00:00 09/22/2008 02:02:29 [id number] Kleber Piper MD , [facility], [address] [place] [address] 12/23/2001 10:30:00 09/22/2008 02:02:29 [id number] [facility] RADIOLOG[facility] Techn[facility] Radiology , [facility] [address] [place] [address] 12/23/2001 10:45:00 09/22/2008 02:02:29 [id number] [facility] , [facility] [address] [place] [address] 12/23/2001 00:00:00 09/22/2008 02:02:29 [id number] Dallin Dowell. , [facility], [address] [place] [address] 02/04/2002 13:59:33 09/22/2008 02:02:29 [id number] Kleber Piper MD , [facility], [address] [place] [address] 02/06/2002 15:43:21 09/22/2008 02:02:29 [id number] Shania perez, PT Physical Therapy, [address] [address] 02/10/2002 10:28:49 09/22/2008 02:02:29 [id number] Shania perez, PT Physical Therapy, [address] [address] 02/20/2002 10:12:54 09/22/2008 02:02:29 [id number] Kleber Piper MD , [facility], [address] [place] [address] 02/25/2002 09:10:34 09/22/2008 02:02:29 [id number] Kleber Piper MD , [facility], [address] [place] [address] 03/20/2002 08:24:14 09/22/2008 02:02:29 [id number] Kleber Piper MD , [facility], [address] [place] [address] 05/18/2002 09:05:54 09/22/2008 02:02:29 [id number] Shania perez, PT Physical Therapy, [facility] [address] [place] [address] 05/21/2002 08:24:50 09/22/2008 02:02:29 [id number] Shania perez, PT Physical Therapy, [facility] [address] [place] [address] 07/27/2002 12:51:55 09/22/2008 02:02:29 [id number] Kleber Piper MD , [facility], [address] [place] [address] 08/31/2002 10:33:45 09/22/2008 02:02:29 [id number] Dallin Dowell. , [facility], [address] [place] [address] 11/06/2002 15:00:08 09/22/2008 02:02:29 [id number] MD JONNY Koo, [facility], [address] [place] [address] 12/28/2002 10:14:58 09/22/2008 02:02:29 [id number] Kleber Piper MD , [facility], [address] [place] [address] 02/12/2003 08:56:29 09/22/2008 02:02:29 [id number] Kleber Piper MD , [facility], [address] [place] [address] 03/02/2003 14:21:56 09/22/2008 02:02:29 [id number] [facility] - [facility] [address] [place] [address] 03/02/2003 15:01:11 09/22/2008 02:02:29 [id number] [facility] - [address] [address] 03/04/2003 09:31:51 09/22/2008 02:02:29 [id number] Kleber Piper MD , [facility], [address] [place] [address] 05/28/2003 11:56:50 05/31/2003 14:28:24 [id number] [facility] , [facility], [address] [place] [address] 06/07/2003 17:44:06 06/07/2003 17:44:11 [id number] Kleber Piper MD [facility], [address] [address] 00:00:00 09/22/2008 02:02:29 [id number] Kleber Piper MD , [facility], [address] [place] [address] 02/28/2004 09:46:53 02/28/2004 13:18:03 [id number] [facility] , [facility], [address] [place] [address] 06/05/2004 14:57:20 06/06/2004 08:42:24 [id number] Kleber Piper MD , [facility], [address] [place] [address] 02/07/2005 08:38:05 02/07/2005 14:19:37 [id number] Kleber Piper MD , [facility], [address] [place] [address] 07/31/2005 15:16:01 09/22/2008 02:02:29 [id number] Kleber Piper MD , [facility], [address] [place] [address] 02/12/2006 09:41:31 02/12/2006 11:17:42 [id number] Kleber Piper MD , [facility], [address] [place] [address] 02/18/2007 11:03:35 02/18/2007 14:32:16 [id number] [facility] , [facility], [address] [place] [address] 05/16/2009 11:44:34 05/16/2009 16:17:05 [id number] Kleber Piper MD , [facility], [address] [place] [address] 07/27/2009 10:04:18 07/27/2009 13:27:36 [id number] [facility] SP[facility] , [facility], [address] [place] [address] 08/05/2009 09:19:22 08/09/2009 14:41:32 [id number] Kleber Piper MD , [facility], [address] [place] [address] 08/02/2010 08:53:38 08/02/2010 12:09:07 [id number] Kleber Piper MD , [facility], [address] [place] [address] 12/25/2010 13:23:09 12/27/2010 09:40:30 [id number] Kleber Piper MD , [facility], [address] [place] [address] 04/02/2011 07:40:36 04/02/2011 08:21:58 [id number] Kleber Piper MD , [facility], [address] [place] [address] 06/26/2011 08:44:23 06/26/2011 10:14:38 [id number] [facility] FP, [facility], [address] [place] [address] 06/29/2011 07:34:11 06/29/2011 13:26:43 [id number] Kleber Piper MD , [facility], [address] [place] [address] 10/04/2011 09:40:48 10/04/2011 10:52:43 [id number] Bee Alvarado NP , [facility], [address] [place] [address] 11/02/2011 09:07:34 11/02/2011 09:32:35 [id number] Kleber Piper MD , [facility], [address] [place] [address] 01/01/2012 09:13:07 01/03/2012 09:26:15 [id number] Kleber Piper MD , [facility], [address] [place] [address] 04/02/2012 08:48:27 04/02/2012 09:28:20 [id number] Kleber Piper MD , [facility], [address] [place] [address] 08/11/2012 08:10:32 08/11/2012 08:45:50 [id number] Kleber Piper MD , [facility], [address] [place] [address] 11/12/2012 10:12:37 11/12/2012 10:57:39 [id number] Kleber Piper MD , [facility], [address] [place] [address] 03/17/2013 09:48:52 03/17/2013 10:58:55 [id number] Kleber Piper MD , [facility], [address] [place] [address] 04/09/2013 08:20:21 04/09/2013 08:43:03 [id number] Kleber Piper MD , [facility], [address] [place] [address] 05/06/2013 08:26:24 05/07/2013 16:29:59 Asthma [id number] Kleber Piper MD , [facility], [address] [place] [address] 06/02/2013 07:49:54 06/02/2013 08:42:29 Chronic pain 08533623 fair control on current regimen; continue same dose of narcotics; ibuprofen helps Gastroesop hageal reflux disease 435387641 Anxiety disorder 667623702 Moderate depression 416691148 [id number] Kleber Piper MD , [facility], [address] [place] [address] 09/10/2013 09:55:05 09/10/2013 10:24:28 Chronic pain 20958818 same dose of morphine Gastroesop hageal reflux disease 710793183 Moderate depression 777329750 [id number] Kleber Piper MD , [facility], [address] [place] [address] 12/03/2013 09:16:06 12/03/2013 10:09:54 Chronic pain 03380442 same dose of morphine- not interested in trying to cut back pain control isstable but just moderate. failed adjuvent therapies. does take ibuprofen high dose Major depr ession, melancholic type 906311280 doing okay off med for now Epidermoid cyst 855034857 reassured Chronic ob structive pulmonary disease 35673273 albuterol prn [id number] Lorenzo Wagner MD , [facility], [address] [place] [address] 12/05/2013 14:39:18 12/05/2013 15:34:14 Nausea and vomiting 93192642 Dizziness 219508756 [id number] Kleber Piper MD , [facility], [address] [place] [address] 12/07/2013 14:41:32 12/07/2013 15:26:42 Vertigo 899165795 most likely BPV. call if returns. pt and educated about condition [id number] Kleber Piper MD , [facility], [address] [place] [address] 03/24/2014 10:44:05 03/24/2014 11:30:47 Sprain of foot 16246338 heat, rest, arch support and ibuprofen 400mg qid. call prn [id number] Kleber Piper MD , [facility], [address] [place] [address] 04/05/2014 10:03:37 04/05/2014 10:45:45 Counseling [id number] Adult heal th examination [id number] see Risk Assessment and Lifestyle Change Counseling section above Chronic ob structive pulmonary disease 49724503 albuterol with spacer prn Chronic pain 94564022 sa me dose of morphine- still with back pain but managing [id number] Kleber Piper MD , [facility], [address] [place] [address] 07/06/2014 09:20:02 07/06/2014 09:48:22 Chronic pain 47513922 same dose of morphine- still with back pain but managing Emphysemat ous bronchitis 660942010 albuterol with spacer prn Gastroesop hageal reflux disease 892881225 Influenza vaccine needed [id number] Kleber Piper MD , [facility], [address] [place] [address] 10/05/2014 09:14:57 10/05/2014 09:54:43 Chronic pain 89007666 same dose of morphine- still with back pain but managing Chronic ob structive pulmonary disease 05243448 albuterol with spacer prn Moderate depression 710110531 in remission off meds - uses clonazepam prn for anxiety [id number] Kleber Piper MD , [facility], [address] [place] [address] 12/30/2014 09:37:48 12/30/2014 10:24:03 Chronic pain 47782843 same dose of morphine- still with back pain but managing Chronic ob structive pulmonary disease 34833251 albuterol with spacer prn Moderate depression 589783263 in remission off meds - uses clonazepam prn for anxiety Gastroesop hageal reflux disease 112481536 [id number] Kleber Piper MD , [facility], [address] [place] [address] 03/24/2015 09:42:24 03/24/2015 10:13:01 Displacement of lumbar intervertebral disc without myelopathy 88723348 Chronic pain 64978433 sa me dose of morphine- still with back pain but managing Chronic ob structive pulmonary disease 62803834 albuterol with spacer prn Moderate depression 854114343 in remission off meds - uses clonazepam prn for anxiety Gastroesop hageal reflux disease 901094855 [id number] MD JONNY Koo, [facility], [address] [place] [address] 06/14/2015 09:17:07 06/14/2015 10:06:46 Chronic pain 29044748 R52 G89.29 same dose of morphine- still with back pain but managing Displaceme nt of lumbar intervertebral disc without myelopathy 87634436 M51.26 Chronic ob structive pulmonary disease 61024380 J44.9 albuterol with spacer prn Moderate depression 3104 13069 F32.1 in remission off meds - uses clonazepam prn for anxiety Gastroesop hageal reflux disease 027842939 K21.9 [id number] Kleber Piper MD , [facility], [address] [place] [address] 09/26/2015 08:41:09 09/26/2015 10:22:04 Chronic pain 74239622 R52 same dose of morphine- still with back pain but managing Adult heal th examination 437588739 Z00.00 see Risk Assessment and Lifestyle Change Counseling section above Counseling [id number] Z71 .9 Screening for disorder 717505980 Z13.9 Chronic ob structive pulmonary disease 46343646 J44.9 albuterol with spacer prn Screening for malignant neoplasm of cervix 797286533 Z12.4 Mucocele of mouth 107265 008 K13.79 pt to let me know when she wants this removed. will refer to ENT [id number] Kleber Piper MD , [facility], [address] [place] [address] 12/26/2015 09:11:04 12/26/2015 10:13:09 Chronic pain 47083235 R52 same dose of morphine- still with back pain but managing Chronic ob structive pulmonary disease 95473940 J44.9 albuterol with spacer prn Gastroesop hageal reflux disease 011382476 K21.9 [id number] Kleber Piper MD , [facility], [address] [place] [address] 03/26/2016 09:20:40 03/27/2016 11:32:15 Chronic pain 39292743 R52 pt told of higher risk of if taking over 100mg of morphine a day. agrees to cut morpine short aciting from 15mg 5 times a day to qid. Epidermoid cyst of skin 897003605 L72.0 [id number] Kleber Piper MD , [facility], [address] [place] [address] 06/13/2016 08:15:17 06/13/2016 08:45:43 Moderate depression 300340830 F32.1 in remission off meds - Chronic ob structive pulmonary disease 77378607 J44.9 not fully controlled with albuterol alone Screening for malignant neoplasm of colon 143553012 Z12.11 refuses colonosoco py Displaceme nt of lumbar intervertebral disc without myelopathy 29672391 M51.26 try norpramin- decrease MSIR to 15mg 3 1/2 tabs qd. told how dangerous morphine doses above 100mg a day is. we are slowly tapering her down. [id number] Kleber Piper MD , [facility], [address] [place] [address] 09/26/2016 08:21:59 09/28/2016 16:20:53 Chronic pain 48317969 R52 reduce total morphine equivalent from 240 to about 200mg a day- warned about withdrawal sx Chronic ob structive pulmonary disease 17328950 J44.9 not controlled - d/c combivent- substitute albuterol 2 puffs q4h and add spiriva [id number] Kleber Piper MD , [facility], [address] [place] [address] 11/15/2016 08:31:10 11/15/2016 13:44:42 Acute bronchitis 25133897 J20.9 with laryngitis rest, hot liquids,hu midify air, call if worse Chronic ob structive pulmonary disease 16263734 J44.9 continue same meds. [id number] Kleber Piper MD , [facility], [address] [place] [address] 12/24/2016 10:37:46 12/25/2016 13:15:37 Opioid dependence 60311638 F11.20 we are gong to taper her MS contin to 3omg tid from 60mg bid starting next month Chronic ob structive pulmonary disease 20620830 J44.9 add a LABA to the LAMA, cont albuterol Displaceme nt of lumbar intervertebral disc without myelopathy 98516569 M51.26 has fair and stable pain control nowreduce total morphine equivalent want to get donw to 100mg or less [id number] Kleber Piper MD , [facility], [address] [place] [address] 04/02/2017 09:15:06 04/02/2017 09:55:13 Chronic pain 49308989 R52 reduce oxycodone for 15mg qid to 10mg 5 times a day. ureged to cut to qid if can. Chronic ob structive pulmonary disease 88089078 J44.9 on stiolto and albuterol doing better. check to make sure not taking spiriva in addition. [id number] Kleber Piper MD , [facility], [address] [place] [address] 07/04/2017 09:17:19 07/04/2017 09:53:26 Chronic pain 69477406 R52 increase oxycodone for 15mg qid from 10mg 5 times a day. at same time will decrease MS contin to 30mg bid from tid. pt understand s goal is to get her under 100mg of morphine equivalent s Opioid dependence 867014 00 F11.20 Chronic ob structive pulmonary disease 81832247 J44.9 stable [id number] Kleber Piper MD , [facility], [address] [place] [address] 10/07/2017 08:19:31 10/07/2017 08:51:10 Opioid dependence 26426056 F11.20 Chronic ob structive pulmonary disease 09293266 J44.9 stable Chronic pain 82712223 R5 2 increase oxycodone for 15mg qid from 10mg 5 times a day. at same time will decrease MS contin to 30mg bid from tid. pt understand s goal is to get her under 100mg of morphine equivalent s- this new proram gets her down about 8mg a day morphine equivalent Gastroesop hageal reflux disease 780548927 K21.9 [id number] Vicky Bentley MD , [facility], [address] [place] [address] 01/09/2018 11:33:07 01/09/2018 12:52:18 Chronic pain 40377611 R52 Opioid dependence 225944 00 F11.20 will begin process of decreasing pain meds - will switch to 10 mg tabs and decrease by 5 mg with next refill and continue 5 mg every month Chronic ob structive pulmonary disease 55633125 J44.9 Chronic back pain 144865 002 M54.9 [id number] Vicky Bentley MD , [facility], [address] [place] [address] 04/21/2018 15:22:33 04/21/2018 16:19:21 Adult health examination 561344534 Z00.00 see Risk Assessment and Lifestyle Change Counseling section above Depression screening 171 336218 Z13.89 depression screening tool administer ed, entered into emr, scored and discussed, time greater than 7.5 minutes Screening mammography 24 555254 Z12.31 Chronic pain 92725980 R5 2 Chronic ob structive pulmonary disease 96376777 J44.9 Gastroesop hageal reflux disease 287019007 K21.9 Screening for malignant neoplasm of colon 077081635 Z12.11 Referral for a DIRECT booked colonoscop y. This patient is a healthy ASA Class 1 or 2 patient (only mild systemic disease), or a STABLE, well controlled insulin dependent diabetic. They do not have serious cardiac disease ie OK/angiopl asty within 1 year, symptomati c CHF; renal failure with CKD 4 or 5; take Coumadin, Plavix, Aggrenox, etc. Alcohol dependence 24983 003 F10.21 not presenlty drinking [id number] GRISELDA Cook , [facility], [address] [place] [address] 05/08/2018 11:13:09 05/09/2018 12:51:26 Chronic obstructive pulmonary disease 83193147 J44.9 Increased blood pressure 25358634 R03.0 Screening for malignant neoplasm of cervix 527828529 Z12.4 [id number] Vicky Bentley MD , [facility], [address] [place] [address] 06/30/2018 08:46:24 07/30/2018 14:35:21 Screening for malignant neoplasm of colon 385946991 Z12.11 Referral for a DIRECT booked colonoscop y. This patient is a healthy ASA Class 1 or 2 patient (only mild systemic disease), or a STABLE, well controlled insulin dependent diabetic. They do not have serious cardiac disease ie OK/angiopl asty within 1 year, symptomati c CHF; renal failure with CKD 4 or 5; take Coumadin, Plavix, Aggrenox, etc. Plantar fasciitis 492150 003 M72.2 xray neg will take aleve and get arch supports and f/u Elevated blood-pressure reading without diagnosis of hypertension 784129549 R03.0 [id number] MD JONNY Koch, [facility], [address] [place] [address] 07/28/2018 09:36:35 07/29/2018 16:23:25 Long-term drug therapy 223063602 Z79.899 Chronic ob structive pulmonary disease 81598853 J44.9 Major depr ession, melancholic type 439170559 F32.9 continue daily exercise Benign ess ential hypertension 4018939 I10 bp has been slowly increasing discussed med choices and will start lisinopril Plantar fasciitis 459533 003 M72.2 xray neg will take aleve and get arch supports and f/u [id number] Vicky Bentley MD , [facility], [address] [place] [address] 10/30/2018 10:55:54 10/30/2018 12:06:09 Chronic pain 31390351 R52 will continue present opioid with drop to 4 per day oxycodone Opioid dependence 405499 00 F11.20 Long-term drug therapy 688519878 Z79.899 Screening for malignant neoplasm of colon 049147296 Z12.11 Referral for a DIRECT booked colonoscop y. This patient is a healthy ASA Class 1 or 2 patient (only mild systemic disease), or a STABLE, well controlled insulin dependent diabetic. They do not have serious cardiac disease ie OK/angiopl asty within 1 year, symptomati c CHF; renal failure with CKD 4 or 5; take Coumadin, Plavix, Aggrenox, etc. Chronic ob structive pulmonary disease 09651693 J44.9 stable on meds will continue [id number] Vicky Bentley MD , [facility], [address] [place] [address] 01/14/2019 13:33:47 01/15/2019 12:01:12 Chronic obstructive pulmonary disease 29479167 J44.9 stable on meds will continue Chronic pain 87479683 R5 2 will continue present opioid with drop to 4 per day oxycodone Opioid dependence 572436 00 F11.20 Benign ess ential hypertension 8082863 I10 bp has improved no chest pain or sob Gastroesop hageal reflux disease 460710036 K21.9 continue omeprazole Low back pain 390008538 M54.5 continue meds and walking Moderate depression 3104 29429 F32.1 continue meds [id number] Vicky Bentley MD FP, [facility], [address] [place] [address] 05/11/2019 15:17:58 05/11/2019 16:06:14 Chronic obstructive pulmonary disease 76275229 J44.9 stable on meds will continue Recurrent major depressive episodes 904500763 F33.9 presenltyu off medication s feels doing well Chronic pain 05347024 R5 2 will continue present opioid Adult heal th examination 581410296 Z00.00 see risk assessment and counseling section Depression screening 171 294590 Z13.89 depression screening tool administer ed, entered into emr, scored and discussed, time greater than 7.5 minutes Intrinsic asthma 4691321 08 J45.20 INTERMITTE NT Asthma- Based on history, physical assessment and peak flow the patients asthma is in control. Will continue the present medication s and follow-up in 6 months. The asthma action plan has been discussed. The patient verbalizes understand ing medication use.. The patient is in agreement with this plan. Counseling 474818702 Z71 .9 Benign ess ential hypertension 5348268 I10 bp has improved no chest pain or sob Mixed hyperlipidemia 267 220684 E78.2 doesnt want medicine but will consider and work on doet [id number] Vicky Bentley MD , [facility], [address] [place] [address] 10/02/2019 16:14:12 10/05/2019 14:18:03 Chronic pain 81415384 R52 will continue present opioid Long-term drug therapy 679504601 Z79.899 Benign ess ential hypertension 5337809 I10 bp has improved no chest pain or sob Chronic ob structive pulmonary disease 93055282 J44.9 stable on meds will continue Opioid dependence 064012 00 F11.20 Recurrent major depressive episodes 369808812 F33.9 presenltyu off medication s feels doing well [id number] Shruthi Foy NP FP, [facility], [address] [place] [address] 11/24/2019 11:19:00 12/02/2019 14:19:52 Pain of right ankle joint 7912618472 0903518 M25.571 POssible avulsion fx vs sprain. Advised RICE, alt with warm soaks and gentle stretches. Avoid weight bearing next few days as able. Send portal message with update 2-3d. We want to avoid xray if possible and advised pt that often these fractures are not casted anyway. Pt agrees with plan. [id number] Vicky Bentley MD , [facility], [address] [place] [address] 01/28/2020 15:58:28 02/10/2020 10:48:45 Gastroesophageal reflux disease 558795104 K21.9 continue omeprazole Chronic pain 94129774 R5 2 will continue present opioid Long-term drug therapy 800349401 Z79.899 Benign ess ential hypertension 5597116 I10 bp has improved no chest pain or sob Chronic ob structive pulmonary disease 05742322 J44.9 stable on meds will continue Opioid dependence 760341 00 F11.20 Recurrent major depressive episodes 160451260 F33.9 presenltyu off medication s feels doing well [id number] Vicky Bentley MD , [facility], [address] [place] [address] 05/12/2020 10:30:04 05/20/2020 15:45:10 Adult health examination 328402340 Z00.00 see risk assessment and lifestyle change section Depression screening 171 815953 Z13.89 depression screening tool administer ed, entered into emr, scored and discussed, time greater than 7.5 minutes Screening for alcohol abuse 232734406 Z13.39 Counseling 619000270 Z71 .89 including cardiovasc ular risk reduction counseling Asthma 594713308 J45.90 9 [id number] Vicky Bentley MD , [facility], [address] [place] [address] 10/24/2020 11:51:19 10/27/2020 16:26:22 Chronic pain 48395305 R52 will continue present opioid will need tox screen and f/u 3 months Screening mammography 24 854484 Z12.31 Benign ess ential hypertension 7335505 I10 bp has improved on lisinopril now at goal no chest pain or sob Chronic ob structive pulmonary disease 83834220 J44.9 stable on meds will continue [id number] Vicky Bentley MD , [facility], [address] [place] [address] 02/20/2021 11:48:24 03/06/2021 06:39:07 Opioid dependence 13968330 F11.90 for chronic back pain well controlled Recurrent major depressive episodes 550801065 F33.9 presenltyu off medication s feels doing well Chronic pain 88627971 R5 2 will continue present opioid will need tox screen and f/u 3 months Screening for osteoporosis 051944143 Z13.820 Benign ess ential hypertension 3318684 I10 bp has improved on lisinopril but has cough will switch to losartan [id number] Vicky Bentley MD , [facility], [address] [place] [address] 04/05/2021 14:17:05 04/05/2021 15:31:28 Chronic pain 86059334 R52 will continue present opioid will need tox screen and f/u 3 months Long-term current use of opiate analgesic drug 5314925262 91646 Z79.891 Active or passive immunization 317720571 Z23 Benign ess ential hypertension 2579485 I10 bp has improved on lisinopri and switched to losartan due to cough bp elevated will increase losartan [id number] Vicky Bentley MD , [facility], [address] [place] [address] 05/04/2021 11:02:05 05/19/2021 11:33:31 Essential hypertension 37653288 I10 bp elevate will inc amlodipine Chronic ob structive pulmonary disease 36147516 J44.9 stable on meds will continue [id number] Vicky Bentley MD , [facility], [address] [place] [address] 08/23/2021 15:03:06 09/01/2021 01:03:18 Mild persistent asthma 466657284 J45.30 (symptoms or bronchodil ator use more [...] the role of inflammati on Essential hypertension 40046517 I10 bpat goal on meds Mixed hyperlipidemia 267 907370 E78.2 Cholestero l is at goal Continue to work on diet and exercise as discussed Chronic pain 16410536 R5 2 will continue present opioid will need tox screen and f/u 3 months Long-term current use of opiate analgesic drug 9068908806 98983 Z79.891 Long-term drug therapy 082792197 Z79.899 Asthma 612443867 J45.90 9 Opioid dependence 804442 00 F11.20 for chronic back pain well controlled [id number] Vicky Bentley MD , [facility], [address] [place] [address] 11/23/2021 11:45:38 12/12/2021 10:41:46 Chronic pain 64659700 R52 will continue present opioid will need tox screen and f/u 3 months Long-term current use of opiate analgesic drug 3181015407 78948 Z79.891 Asthma 683422972 J45.90 9 stable has flovent Benign ess ential hypertension 6232469 I10 bp has improved on lisinopri and switched to losartan due to cough bp elevated will increase losartan Displaceme nt of lumbar intervertebral disc without myelopathy 73267085 M51.26 cause of chronic back pain Mixed hyperlipidemia 267 465847 E78.2 Cholestero l is at goal Continue to work on diet and exercise as discussed Long-term drug therapy 810737614 Z79.899 Essential hypertension 44233788 I10 bpat goal on meds [id number] Vicky Bentley MD , [facility], [address] [place] [address] 02/14/2022 16:18:12 02/15/2022 09:49:42 Chronic pain 94144193 R52 will continue present opioid will need tox screen and f/u 3 months Long-term current use of opiate analgesic drug 4706488834 14737 Z79.891 chronic back pain that has required chronic opioids to remain functional Essential hypertension 92384464 I10 bpat goal on meds Chronic ob structive pulmonary disease 55587803 J44.9 stable on meds will continue Mixed hyperlipidemia 267 508511 E78.2 Cholestero l is at goal Continue to work on diet and exercise as discussed Long-term current use of drug therapy 310992546 Z79.899 Constipation 39282573 K5 9.00 Opioid dependence 645467 00 F11.20 for chronic back pain well controlled [id number] Vicky Bentley MD , [facility], [address] [place] [address] 04/25/2022 15:46:45 05/03/2022 12:30:38 Adult health examination 300826340 Z00.00 see risk assessment and lifestyle change section Counseling 376163320 Z71 .9 including cardiovasc ular risk reduction counseling Depression screening 171 733418 Z13.31 depression screening tool administer ed, entered into emr, scored and discussed, time greater than 7.5 minutes Screening for alcohol abuse 453653660 Z13.39 Benign ess ential hypertension 1260195 I10 Mixed hyperlipidemia 267 902364 E78.2 Cholestero l is at goal Continue to work on diet and exercise as discussed Essential hypertension 43560489 I10 bpat goal on meds Hypertensi onBlood pressure is reasonable today.She will continue on amlodipine and hydrochlor othiazide, refills provided today. Osteoporosis 33177286 M8 1.0 Osteoporos isShe will continue on vitamin B12 and Kenneth vitamins for women daily.Enco uraged to exercise regularly. Prescripti on for 70 mg of alendronat e 1 tablet every week for 3 months was sent to [facility] in [place], [place]. Instructio ns on its usage were given. side effects and how tro take were discussed Asthma 495514608 J45.90 9 stable has flovent Chronic ob structive pulmonary disease 53323208 J44.9 stable on meds will continue COPDShe will continue on Spiriva and ProAir, refills provided today. Chronic pain 93236657 R5 2 will continue present opioid will need tox screen and f/u 3 months Chronic painShe will continue on long-actin g morphine and oxycodone. This note has been generated by Sanna SCHNEIDER and edited by Colby Abbas, Quality Documentat ion Specialist . [id number] Vicky Bentley MD , [facility], [address] [place] [address] 05/31/2022 11:10:05 07/13/2022 07:27:52 Chronic obstructive pulmonary disease 18770357 J44.9 COPDShe will continue on Spiriva and ProAir, refills provided today. exacerbati on has improved Pneumonia 025470022 J18. 9 improved [id number] Vicky Bentley MD , [facility], [address] [place] [address] 06/28/2022 10:54:36 06/28/2022 11:56:03 Chronic obstructive pulmonary disease 59721090 J44.9 COPDShe will continue on Spiriva and ProAir, refills provided today. exacerbati on has improved Benign ess ential hypertension 8994747 I10 Displaceme nt of lumbar intervertebral disc without myelopathy 24367914 M51.26 chronic pain controlled with opioids stable dose and feels keeps her functional Gastroesop hageal reflux disease 564662280 K21.9 stable on omeprazole has tried to stop beofre will continue [id number] Thaddeus Jaquez MD , [facility], [address] [place] [address] 07/31/2022 16:45:25 07/31/2022 17:59:23 Acute exacerbation of chronic obstructive pulmonary disease 063162899 J44.1 start meds, call if not MUCH better in 1-2 days Cough 83758548 R05.9 [id number] Kady Esteves MD , [facility], [address] [place] [address] 08/03/2022 14:15:09 08/03/2022 14:38:31 Acute exacerbation of chronic obstructive pulmonary disease 265411568 J44.1 extend prednisone , taper slowlycont inue and finish abxcall if not improving [id number] Vicky Bentley MD , [facility], [address] [place] [address] 10/01/2022 10:56:26 10/01/2022 14:12:39 Long-term current use of drug therapy 900651139 Z79.899 Chronic ob structive pulmonary disease 00079162 J44.9 COPDShe will continue on Spiriva and ProAir, refills provided today. exacerbati on has improved [id number] Vicky Bentley MD , [facility], [address] [place] [address] 12/28/2022 07:55:47 12/29/2022 09:48:33 Opioid dependence 02928306 F11.20 for chronic back pain well controlled Long-term current use of drug therapy 404537811 Z79.899 Osteoporosis 34510557 M8 1.0 Osteoporos isShe will continue on vitamin B12 and Kenneth vitamins for women daily.Enco uraged to exercise regularly. Prescripti on for 70 mg of alendronat e 1 tablet every week for 3 months was sent to [facility] in [place], [place]. Instructio ns on its usage were given. side effects and how tro take were discussed Encouraged to continue alendronat e once a week. Benign ess ential hypertension 0165308 I10 Chronic as thmatic bronchitis 719333536 J44.9 Explained in detail regarding the etiology [...] Madeline Nation, Quality Documentat ion Specialist . [id number] Vicky Bentley MD , [facility], [address] [place] [address] 03/18/2023 15:51:40 03/18/2023 16:48:34 Mild intermittent asthma 985803596 J45.20 (symptoms or bronchodil ator use at [...] with this plan. Active or passive immunization 542814715 Z23 Chronic ob structive pulmonary disease 23414147 J44.9 COPDShe will continue on Spiriva and [...] ns on usage were given. Opioid dependence 783190 00 F11.20 for chronic back pain well controlled Benign ess ential hypertension 4814924 I10 Hypertensi onContinue with current medical management . Chronic pain 58957479 R5 2 will continue present opioid will [...] Colby Hernandez Quality Documentat ion Specialist . [id number] Vicky Bentley MD , [facility], [address] [place] [address] 05/31/2023 11:25:50 05/31/2023 17:18:50 Adult health examination 838165531 Z00.00 see risk assessment and lifestyle change section Depression screening 171 615536 Z13.31 depression screening tool administer ed Screening for alcohol abuse 222763799 Z13.39 Alcohol use screening tool administer ed Chronic pain 20895907 R5 2 will continue present opioid will [...] Long-term current use of opiate analgesic drug 1127334893 80828 Z79.891 chronic back pain that has required chronic opioids to remain functional Counseled by member of primary health care team 821657919 Z71.9 Today we discussed ways to reduce [...] daily aspirin. Chronic ob structive pulmonary disease 25768065 J44.9 COPDShe will continue on Spiriva and [...] pharmacy. Instructio ns on usage were given. [id number] Vicky Bentley MD , [facility], [address] [place] [address] 08/19/2023 09:09:05 08/19/2023 16:52:40 Screening mammography 26449867 Z12.31 Acute exac erbation of chronic obstructive pulmonary disease 668238806 J44.1 DyspneaExp lained in detail regarding the [...] Irving, Quality Documentat ion Specialist . Pneumonia 798567669 J18. 9 [id number] Vicky Bentley MD , [facility], [address] [place] [address] 09/11/2023 10:12:54 09/11/2023 11:06:30 Long-term current use of drug therapy 161266629 Z79.899 Chronic ob structive pulmonary disease 69153709 J44.9 COPDShe will continue on Spiriva and [...] usage were given. Benign ess ential hypertension 9456495 I10 Hypertensi onContinue with current medical management . see above Chronic pain 54523873 R5 2 will continue present opioid will [...] ns on usage were given. see above [id number] Thaddeus Jaquez MD , [facility], [address] [place] [address] 11/11/2023 08:15:02 11/11/2023 14:00:42 Chronic obstructive pulmonary disease 73672501 J44.9 Pt with COPD with 3 days of acutely worsening SOB and SALEH with hypoxia. Pt was place on 2 L NC and O2 sat went up to 95%. When was removed, dropped down to 90% again. When pt first presented, O2 sat was 77% after ambulation into office.Dis cussed pt needs ER evaluation and tx and transport called. Hypoxia 580238783 G47.34 [id number] Kady Esteves MD , [facility], [address] [place] [address] 11/18/2023 10:34:29 11/19/2023 13:23:46 Chronic obstructive pulmonary disease 77843162 J44.9 continue w/ O2, discussed may be able to wean over the next 1-2 mos, goal O2 in low 90swill establish with pulmonolog ywill give 3 addl days prednisone given inspirator y and expiratory wheezing heard on exam todayconti nue w/ home inhalers and nebs prnf/u with worsening sx Hypoxemia 912423801 R09. 02 O2 sat around 90-93% at home on 2L RA at rest, 4L with movement Benign ess ential hypertension 7855617 I10 BP above goal todaypt has MM visit w/ PCP in 1 mos, will discuss then [id number] Vicky Bentley MD , [facility] [facility], OFFICE [address] [place] [address] 12/16/2023 10:52:28 12/17/2023 12:22:58 Long-term current use of drug therapy [id number] Z79.899 Osteoporosis 66958592 M8 1.0 Osteoporos isShe will continue on vitamin B12 and Kenneth vitamins for women daily.Enco uraged to exercise regularly. Prescripti on for 70 mg of alendronat e 1 tablet every week for 3 months was sent to [facility] in [place], [place]. Instructio ns on its usage were given. side effects and how tro take were discussed Encouraged to continue alendronat e once a week. Osteoporos Macario prescripti on refill for her osteoporos is medication has been provided. This note has been generated by Sanna SCHNEIDER and edited by Marianela Irving, Quality Documentat ion Specialist . Chronic ob structive pulmonary disease [id number] J44.9 COPDShe will continue on Spiriva and [...] pharmacy. Instructio ns on usage were given. [id number] Vicky Bentley MD , [facility], OFFICE [address] [place] [address] 04/09/2024 10:40:58 04/15/2024 11:14:01 Chronic pain 88151517 R52 will continue present opioid will need [...] Long-term current use of opiate analgesic drug [id number] 68926 Z79.891 chronic back pain that has required chronic opioids to remain functional Long-term current use of drug therapy [id number] Z79.899 Chronic ob structive pulmonary disease 85912444 J44.9 continue w/ O2, discussed may be able to wean over the next 1-2 mos, goal O2 in low 90swill establish with pulmonolog ywill give 3 addl days prednisone given inspirator y and expiratory wheezing heard on exam todayconti nue w/ home inhalers and nebs prnf/u with worsening sx Hypoxemia [id number] R09. 02 O2 sat around 95 on ra has discontiju ed oxygen Benign ess ential hypertension 0713802 I10 BP at goal Osteoporosis 14490356 M8 1.0 Osteoporos isShe will continue on vitamin B12 and Kenneth vitamins for women daily.Enco uraged to exercise regularly. Prescripti on for 70 mg of alendronat e 1 tablet every week for 3 months was sent to [facility] in [place], [place]. Instructio ns on its usage were given. side effects and how tro take were discussed Encouraged to continue alendronat e once a week. Osteoporos iscontinue alendronat e tolerating well This note has been generated by Sanna SCHNEIDER and edited by Marianela Irving, Quality Documentat ion Specialist . [id number] Vicky Bentley MD , [facility], OFFICE [address] [place] [address] 06/05/2024 11:18:08 06/09/2024 19:21:43 Adult health examination [id number] Z00.00 see risk assessment and lifestyle change section Depression screening 171 506980 Z13.31 depression screening tool administer ed Screening for alcohol abuse 182168490 Z13.39 Alcohol use screening tool administer ed Screening for malignant neoplasm of colon 638663356 Z12.11 Referral for a DIRECT booked colonoscop y. This patient is a healthy ASA Class 1 or 2 patient (only mild systemic disease), or a STABLE, well controlled insulin dependent diabetic. They do not have serious cardiac disease ie OK/angiopl asty within 1 year, symptomati c CHF; renal failure with CKD 4 or 5; take Coumadin, Plavix, Aggrenox, etc. Asthma [id number] J45.90 9 stable has flovent Benign ess ential hypertension 9626760 I10 BP at goal Chronic ob structive pulmonary disease 19033016 J44.9 continue w/ O2, discussed may be able to wean over the next 1-2 mos, goal O2 in low 90swill establish with pulmonolog ywill give 3 addl days prednisone given inspirator y and expiratory wheezing heard on exam todayconti nue w/ home inhalers and nebs prnf/u with worsening sx Chronic pain 12446161 R5 2 will continue present opioid will [...] usage were given. see above Opioid dependence 789461 00 F11.20 for chronic back pain well controlled Counseled by member of primary health care team [id number] Z71.9 Today we discussed ways to reduce [...] practition er may recommend taking daily aspirin. [id number] KLEBER ALCANTAR DO , [facility], [address] [place] [address] 07/14/2024 13:48:47 07/16/2024 09:03:17 Chronic obstructive pulmonary disease 61666084 J44.9 Chronic Obstructiv e Pulmonary Disease (COPD)Rece [...] low salt diet to prevent fluid retention. [id number] Vicky Bentley MD , [facility], [address] [place] [address] 11/19/2024 10:32:57 11/20/2024 10:43:56 Chronic pain 16587166 R52 will continue present opioid will need [...] Long-term current use of opiate analgesic drug [id number] 02613 Z79.891 chronic back pain that has required chronic opioids to remain functional Benign ess ential hypertension 9225656 I10 BP at goal Chronic ob structive pulmonary disease 66257771 J44.9 continue w/ O2, discussed may be able to wean over the next 1-2 mos, goal O2 in low 90swill establish with pulmonolog ywill give 3 addl days prednisone given inspirator y and expiratory wheezing heard on exam todayconti nue w/ home inhalers and nebs prnf/u with worsening sx Opioid dependence 626115 00 F11.20 for chronic back pain well controlled Osteoporosis 22794565 M8 1.0 Osteoporos isShe will continue on vitamin B12 and Kenneth vitamins for women daily.Enco uraged to exercise regularly. Prescripti on for 70 mg of alendronat e 1 tablet every week for 3 months was sent to [facility] in [place], [place]. Instructio ns on its usage were given. side effects and how tro take were discussed Encouraged to continue alendronat e once a week. Osteoporos iscontinue alendronat e tolerating well This note has been generated by Sanna SCHNEIDER and edited by Marianela Irving, Quality Documentat ion Specialist . Prediabetes [id number] R7 3.03 Health Concerns Section Related Observation LastModified by Organization Detai ls LastModified Time None Recorded Concern Status LastModified by Organization Details LastModified Time None Recorded Advance Directives Directive Y: spouse Payers Insurance Date Sequence Insurance Name Policy Number Policy Boyd Covered Member ID Boyd Member ID Guarantor Name 11/23/2024 2 JOE ( [facility]) Bernie Oh [id number] Bernie Oh 12/25/2010 2 [place] [employer] [id number] Tristan Oh [id number] Bernie Oh 11/15/2024 1 [place] [employer] Bernie Oh [id number] Bernie Oh 03/16/2024 3 [place] Bernie Oh [id number] Bernie Oh Notes Date Note Type Note [...] She has a scheduled appointment with her patient financial representative on 12/18/2023. Her patient financial representative has prescribed a longer course of prednisone, [...] normal range.Mammogram was normal. Vicky Bentley MD [address] [place] [address], [phone], [facility] 12/18/2023 20:35:59 4 text/html MMThe patient [...] lose weight and has consulted with a patient financial representative. Her diet includes minimal consumption of bread [...] no trouble taking that. Vicky Bentley MD [address] [place] [address], [phone], [facility] 04/09/2024 12:22:52 4 text/html Physical Exam/FemaleReported [...] history of COVID-19 infection. Vicky Bentley MD [address] [place] [address], [phone], [facility] 06/06/2024 19:43:27 4 text/html 07/14/24- Pt [...] drinking diet [employer]eps[employer]. KLEBER ALCANTAR DO [address] [place], [address], [facility] 07/16/2024 08:15:23 5 text/html History of Present [...] and increased water intake. Vicky Bentley MD [address] [place] [address], [phone], [facility] 11/19/2024 19:30:40 OBGyn Episode No OBEpisode recorded.
== END 2025-03-12 07:05 | disposition home or self-care (01) ==
LOC: HO.HOSX 07:04
PROVIDERS: Visit Provider Orthopaedic Surgery
DX: S52.501A Unspecified fracture of the lower end of right radius, initial encounter for closed fracture (principal); X58.XXXA Exposure to other specified factors, initial encounter; Y93.9 Activity, unspecified; Y92.9 Unspecified place or not applicable; Y99.9 Unspecified external cause status
CPT/HCPCS: 25600; 73110; 99202

== ENCOUNTER 2025-03-12 09:01 | Outpatient (AMB) | payer MEDICARE, OTHER, SELFPAY ==
--- OUTSIDE RECORDS SUMMARY | 2025-03-12 09:15 | XMS_ITS | Data Portability ---
Author Organization [facility], [facility] Address [address] [place] [address] Care Team Providers Care Lime Trimmer Name Role Phone VICKY BENTLEY Primary Care Provider NEIL JUDGE Learning And Development Manager [facility] Security Administrator Assessment Encounter Date Assessment Date Assessment LastModified [...] meeting your goals. Please visit our website [employer] for more patient resources. As part of [...] Details Appointments LAB Follow-Up 2024 08:10A M [facility] Lab Not available Not available Not available Medical Managemen t 15 2024 08:15A M Vicky Bentley MD Not available Not available Not available Wellness Visit 30 2024 10:00A M Vicky Bentley MD Not available Not available Not available Lab HbA1c (hemoglob in A1c), blood 2024 025 [facility], [address] [place] [address], [address], 11/20/2024 09:38:52 drug screen, urine - oxycodone & morphine last intake 11/19/24 7am & 11/18/24 DS 1200am Temp 94F 2024 025 [facility], [address] [place] [address], [address], 11/23/2024 14:10:27 drug screen, urine - oxycodone & morphine Date and Time of Last Dose: 04/09/24 7:30 AM & 04/09/24 1am temp: 94F 2023 024 [facility], [address] [place] [address], [address], 04/10/2024 10:40:39 drug screen, urine - Oxycodone 6 am & Morphine 12 am 12/16/23 No Temp Recorded 2023 024 [facility], [address] [place] [address], [address], 12/17/2023 10:06:00 Referral None recorded. Procedures colonosco py procedure (PROC) [address] [facility], [address] [place] [address], [address], 06/09/2024 12:38:43 Surgeries None recorded. Imaging None recorded. Medication Orders alendrona te 70 mg tablet 2024 025 [facility] Diat-Ux-Gthq [facility], [address] [facility], [facility], [place], [place], [id number], 11/19/2024 13:30:39 Breztri Aerospher e 160 mcg-9mcg- 4.8mcg/ac tuation HFA aerosol inhaler 2024 025 [facility] Ajgs-Wf-Xtkv [facility], [address] [facility], [facility], [place], [place], [id number], 11/19/2024 13:28:10 hydrochlo rothiazid e 12.5 mg tablet 2024 025 [facility] Lgpi-Ei-Zekh [facility], [address] [facility], [facility], [place], [place], [id number], 11/19/2024 13:28:20 alendrona te 70 mg tablet 2023 024 [facility] Xlwj-Fb-Vmne [facility], [address] [facility], [facility], [place], [place], [id number], 04/09/2024 12:23:10 hydrochlo rothiazid e 12.5 mg tablet 2023 024 [facility] Drxo-Rs-Ydqx [facility], [address] [facility], [facility], [place], [place], [id number], 04/09/2024 12:23:11 Narcan 4 mg/actuat ion nasal spray 2023 024 [facility] Ssrx-Ly-Qkqr [facility], [address] [facility], [facility], [place], [place], [id number], 04/09/2024 12:23:15 alendrona te 70 mg tablet 2023 024 MUKESH [facility], [address], [place], [place], [id number], 12/16/2023 12:51:39 Patient TargetsNo targets recorded. Patient Instructions Encounter Date Encounter Id Patient Instructions Last Modified By Organization Details Last Modified Time 04/09/2024 [id number] My Health To Do List Specific Analgesia [...] and understands the properties of narcotic medication. Not available 04/09/2024 11:06:03 06/05/2024 [id number] high blood pressure: care instructions [email or web address] Not available 06/06/2024 19:43:22 learning about high blood pressure sesrick Not available 06/06/2024 19:43:22 07/14/2024 [id number] I am aware of [facility] inpatient facility discharge medications, the medication list above has been reconciled with those medications and reflects my understanding of an up to date medication list for this patient. [email or web address] Not available 07/14/2024 14:30:48 11/19/2024 [id number] high blood pressure: care instructions sesrick Not [...] and understands the properties of narcotic medication. [email or web address] Not available 11/19/2024 10:51:47 Reason for Referral None Reported. Results Created Date Observation Date Name Description Value Unit Range Abnormal Flag Note LastModifiedBy Organization Detail LastModifiedTime 12/16/19 24 12/17/2023 DRUG SCREE N-8, URINE , WITH CONFI RMATI ON GC/MS amphetamine NEG. negati ve Not Available [address], [address], 12/17/2023 10:06:00 12/16/19 24 12/17/2023 DRUG SCREE N-8, URINE , WITH CONFI RMATI ON GC/MS barbiturates NEG. negati ve Not Available [address], [address], 12/17/2023 10:06:00 12/16/19 24 12/17/2023 DRUG SCREE N-8, URINE , WITH CONFI RMATI ON GC/MS benzodiazepi ne NEG. negati ve Not Available [address], [address], 12/17/2023 10:06:00 12/16/19 24 12/17/2023 DRUG SCREE N-8, URINE , WITH CONFI RMATI ON GC/MS cocaine NEG. negati ve Not Available [address], [address], 12/17/2023 10:06:00 12/16/19 24 12/17/2023 DRUG SCREE N-8, URINE , WITH CONFI RMATI ON GC/MS opiates POS. negati ve GCMS= Sampl e [facility] to [facility] for confi rmati on by GC/MS . Not Available [address], [address], 12/17/2023 10:06:00 12/16/19 24 12/17/2023 DRUG SCREE N-8, URINE , WITH CONFI RMATI ON GC/MS methadone NEG. negati ve Not Available [address], [address], 12/17/2023 10:06:00 12/16/19 24 12/17/2023 DRUG SCREE N-8, URINE , WITH CONFI RMATI ON GC/MS fentanyl NEG. negati ve Syva EMIT II Limit s of Detec tion (cutt -off value s) [place] Expan d: Amphe tamin es: 1000 ng/ml Opiat es: 300 ng/ml Rica tuate s: 200 ng/ml Oxyco done 100 ng/ml Benzo diaze pines : 200 ng/ml Metha done 300 ng/ml Cocai ne: 300 ng/ml Fenta nyl 1 ng/ml Not Available [address], [address], 12/17/2023 10:06:00 12/16/19 24 12/17/2023 DRUG SCREE N-8, URINE , WITH CONFI RMATI ON GC/MS oxycodone POS. negati ve GCMS= Sampl e sent to [facility] for confi rmati on by GC/MS . Not Available [address], [address], 12/17/2023 10:06:00 12/16/19 24 12/22/2023 DRUG TOX MONIT ORING OPIAT ES EXPAN DED QN, U codeine NEGATI VE NG/mL <50 See Note 1 Not Available [facility] [address], [address], 12/22/2023 11:07:59 12/16/19 24 12/22/2023 DRUG TOX MONIT ORING OPIAT ES EXPAN DED QN, U hydrocodone NEGATI VE NG/mL <50 See Note 1 Not Available [facility] [address], [address], 12/22/2023 11:07:59 12/16/19 24 12/22/2023 DRUG TOX MONIT ORING OPIAT ES EXPAN DED QN, U hydromorphon e NEGATI VE NG/mL <50 See Note 1 Not Available [facility] [address], [place], [address], 12/22/2023 11:07:59 12/16/19 24 12/22/2023 DRUG TOX MONIT ORING OPIAT ES EXPAN DED QN, U morphine 4506 NG/mL <50 high See Note 1 Not Available [facility] [place] [facility] [address], [place], [address], 12/22/2023 11:07:59 12/16/19 24 12/22/2023 DRUG TOX MONIT ORING OPIAT ES EXPAN DED QN, U norhydrocodo ne NEGATI VE NG/mL <50 See Note 1 Not Available [facility] [place] [facility] [address], [place], [address], 12/22/2023 11:07:59 12/16/19 24 12/22/2023 DRUG TOX MONIT ORING OPIAT ES EXPAN DED QN, U noroxycodone 1671 NG/mL <50 high See Note 1 Not Available [facility] [place] [facility] [address], [place], [address], 12/22/2023 11:07:59 12/16/19 24 12/22/2023 DRUG TOX MONIT ORING OPIAT ES EXPAN DED QN, U oxycodone 1775 NG/mL <50 high See Note 1 Not Available [facility] [place] [facility] [address], [place], [address], 12/22/2023 11:07:59 12/16/19 24 12/22/2023 DRUG TOX MONIT ORING OPIAT ES EXPAN DED QN, U oxymorphone 2246 NG/mL <50 high See Note 1 Not Available [facility] [place] [facility] [address], [place], [address], 12/22/2023 11:07:59 12/16/19 24 12/22/2023 DRUG TOX [...] alist : [phone] ( [phone] ), M-F, 8am-6 pm EST. Not Available [facility] [place] [facility] [address], [place], [address], 12/22/2023 11:07:59 03/19/20 24 03/23/2024 BASIC METAB OLIC PANEL glucose 105 mg/dL 70-100 high Not Available [address], [address], 03/23/2024 12:11:20 03/19/20 24 03/23/2024 BASIC METAB OLIC PANEL BUN 20 mg/dL 7-18 high Not Available [address], [address], 03/23/2024 12:11:20 03/19/20 24 03/23/2024 BASIC METAB OLIC PANEL creatinine 0.8 mg/dL 0.8-1. 3 Not Available [address], [address], 03/23/2024 12:11:20 03/19/20 24 03/23/2024 BASIC METAB OLIC PANEL B/C 25.0 ratio Not Available [address], [address], 03/23/2024 12:11:20 03/19/20 24 03/23/2024 BASIC METAB [...] borat ion (CKD- EPI) Equat ion (Terell parker et. al 2020) as recom juana d by the Natio nal Kidne y Found ation . eGFR is based on age, serum creat inine , and sex. CKD-E PI does not calcu late eGFR by race, does not apply to child kin (age <18 years ), and shoul d not be used in pregn elvira. Not Available [address], [address], 03/23/2024 12:11:20 03/19/20 24 03/23/2024 BASIC METAB OLIC PANEL sodium 143 mmol/ L 136-14 5 Not Available [address], [address], 03/23/2024 12:11:20 03/19/20 24 03/23/2024 BASIC METAB OLIC PANEL potassium 4.0 mmol/ L 3.5-5. 1 Not Available [address], [address], 03/23/2024 12:11:20 03/19/20 24 03/23/2024 BASIC METAB OLIC PANEL chloride 100 mmol/ L 96-107 Not Available [address], [address], 03/23/2024 12:11:20 03/19/20 24 03/23/2024 BASIC METAB OLIC PANEL anion gap 10.5 5.0-15 .0 Not Available [address], [address], 03/23/2024 12:11:20 03/19/20 24 03/23/2024 BASIC METAB OLIC PANEL CO2 33 mmol/ L 21-32 high Not Available [address], [address], 03/23/2024 12:11:20 03/19/20 24 03/23/2024 BASIC METAB OLIC PANEL calcium 8.6 mg/dL 8.5-10 .3 Not Available [address], [address], 03/23/2024 12:11:20 03/19/20 24 03/23/2024 LIPID PANEL cholesterol 215 mg/dL <200 mg/dl Nhung able 200-2 39 mg/dl Borde rline High >240 mg/dl High Not Available [address], [address], 03/23/2024 12:11:21 03/19/20 24 03/23/2024 LIPID PANEL triglyceride s 95 mg/dL <150 mg/dL Latoya l 150-1 99 mg/dL Borde rline High 200-4 99 mg/dL High >500 mg/dL Very High Not Available [address], [address], 03/23/2024 12:11:21 03/19/20 24 03/23/2024 LIPID PANEL direct HDL 62 mg/dL <40 mg/dl - Major Risk for CHD >60 mg/dl - Negat ezequiel Risk for CHD Not Available [address], [address], 03/23/2024 12:11:21 03/19/20 24 03/23/2024 LDL - CALCU LATED LDL - calculated 134.0 RISK CATEG ORY LDL GOAL _ CHD or CHD Risk Equiv alent s <100 mg/dl (10-y ear risk >20%) 2+ Risk Facto rs <130 mg/dl (10-y ear risk <= 20%) 0-1 Risk Facto r <160 mg/dl Almo st all peopl e with 0-1 risk facto r have a 10 year risk <10%, thus 10 year risk asses ment in peopl e with 0-1 risk facto r is not nikkorosie chavez. Not Available [address], [address], 03/23/2024 12:11:22 04/09/20 24 04/10/2024 DRUG SCREE N-8, URINE , WITH CONFI RMATI ON GC/MS amphetamine NEG. negati ve Not Available [address], [address], 04/10/2024 10:40:39 04/09/20 24 04/10/2024 DRUG SCREE N-8, URINE , WITH CONFI RMATI ON GC/MS barbiturates NEG. negati ve Not Available [address], [address], 04/10/2024 10:40:39 04/09/20 24 04/10/2024 DRUG SCREE N-8, URINE , WITH CONFI RMATI ON GC/MS benzodiazepi ne NEG. negati ve Not Available [address], [address], 04/10/2024 10:40:39 04/09/20 24 04/10/2024 DRUG SCREE N-8, URINE , WITH CONFI RMATI ON GC/MS cocaine NEG. negati ve Not Available [address], [address], 04/10/2024 10:40:39 04/09/20 24 04/10/2024 DRUG SCREE N-8, URINE , WITH CONFI RMATI ON GC/MS opiates POS. negati ve GCOP= Urine sampl e [facility] to [facility] for confi rmati on of opiat es by GC/MS . Not Available [address], [address], 04/10/2024 10:40:39 04/09/20 24 04/10/2024 DRUG SCREE N-8, URINE , WITH CONFI RMATI ON GC/MS methadone NEG. negati ve Not Available [address], [address], 04/10/2024 10:40:39 04/09/20 24 04/10/2024 DRUG SCREE N-8, URINE , WITH CONFI RMATI ON GC/MS fentanyl NEG. negati ve Syva EMIT II Limit s of Detec tion (cutt -off value s) [place] Expan d: Amphe tamin es: 1000 ng/ml Opiat es: 300 ng/ml Rica tuate s: 200 ng/ml Oxyco done 100 ng/ml Benzo diaze pines : 200 ng/ml Metha done 300 ng/ml Cocai ne: 300 ng/ml Fenta nyl 1 ng/ml Not Available [address], [address], 04/10/2024 10:40:39 04/09/20 24 04/10/2024 DRUG SCREE N-8, URINE , WITH CONFI RMATI ON GC/MS oxycodone POS. negati ve GCOP= Urine sampl e sent to [facility] for confi rmati on of opiat es by GC/MS . Not Available [address], [address], 04/10/2024 10:40:39 04/09/20 24 04/12/2024 DRUG TOX MONIT ORING OPIAT ES EXPAN DED QN, U codeine NEGATI VE NG/mL <50 See Note 1 Not Available [facility] [place] [facility] [address] [place] [address], [place], [address], 04/12/2024 19:23:43 04/09/20 24 04/12/2024 DRUG TOX MONIT ORING OPIAT ES EXPAN DED QN, U hydrocodone NEGATI VE NG/mL <50 See Note 1 Not Available [facility] [place] [facility] [address], [place], [address], 04/12/2024 19:23:43 04/09/20 24 04/12/2024 DRUG TOX MONIT ORING OPIAT ES EXPAN DED QN, U hydromorphon e NEGATI VE NG/mL <50 See Note 1 Not Available [facility] [place] [facility] [address], [place], [address], 04/12/2024 19:23:43 04/09/20 24 04/12/2024 DRUG TOX MONIT ORING OPIAT ES EXPAN DED QN, U morphine 2105 NG/mL <50 high See Note 1 Not Available [facility] [place] [facility] [address], [place], [address], 04/12/2024 19:23:43 04/09/20 24 04/12/2024 DRUG TOX MONIT ORING OPIAT ES EXPAN DED QN, U norhydrocodo ne NEGATI VE NG/mL <50 See Note 1 Not Available [facility] [place] [facility] [address], [place], [address], 04/12/2024 19:23:43 04/09/20 24 04/12/2024 DRUG TOX MONIT ORING OPIAT ES EXPAN DED QN, U noroxycodone 491 NG/mL <50 high See Note 1 Not Available [facility] [place] [facility] [address], [place], [address], 04/12/2024 19:23:43 04/09/20 24 04/12/2024 DRUG TOX MONIT ORING OPIAT ES EXPAN DED QN, U oxycodone 561 NG/mL <50 high See Note 1 Not Available [facility] [place] [facility] [address] [place], [place], [address], 04/12/2024 19:23:43 04/09/20 24 04/12/2024 DRUG TOX MONIT ORING OPIAT ES EXPAN DED QN, U oxymorphone 1533 NG/mL <50 high See Note 1 Not Available [facility] [place] [facility] [address] [place], [place], [address], 04/12/2024 19:23:43 04/09/20 24 04/12/2024 DRUG TOX MONIT ORING OPIAT ES EXPAN DED QN, U Unknown Analyte See Note 2 Note 1 This test was samir souza and its enedina tical perfo rmanc e leta cteri stics have been deter mined by [facility]. It has not been clear ed or appro vlademar by the FDA. This assay has been valid ated pursu ant to the CLIA regul ation s and is used for clini eligio purpo ses. Note 2 This drug testi ng is for medic al treat ment only. Enedina sis was perfo rmed as non-f orens ic testi ng and these resul ts shoul d be used only by healt earnest provi ders to rende r diagn osis or treat ment, or to monit or progr ess of medic al condi tions . For aleida tance with inter preti ng these drug resul ts, pleas e conta ct a [facility] Toxic ology Speci alist : [phone] X [phone] ([phone] ), M-F, 8am-6 pm EST. Not Available [facility] [place] [facility] [address] [place], [place], [address], 04/12/2024 19:23:43 11/20/19 25 11/20/2024 HGB A1C [...] furth er confi rmati on Not Available [address], [address], 11/20/2024 09:38:52 11/20/19 25 11/20/2024 HGB A1C estimated average glucose 139.9 mg/dL Not Available [address], [address], 11/20/2024 09:38:52 11/20/19 25 11/23/2024 BASIC METAB OLIC PANEL glucose 113 mg/dL 70-100 high Not Available [address], [address], 11/23/2024 11:21:55 11/20/19 25 11/23/2024 BASIC METAB OLIC PANEL BUN 18 mg/dL 7-18 Not Available [address], [address], 11/23/2024 11:21:55 11/20/19 25 11/23/2024 BASIC METAB OLIC PANEL creatinine 0.8 mg/dL 0.8-1. 3 Not Available [address], [address], 11/23/2024 11:21:55 11/20/19 25 11/23/2024 BASIC METAB OLIC PANEL B/C 22.5 ratio Not Available [address], [address], 11/23/2024 11:21:55 11/20/19 25 11/23/2024 BASIC METAB [...] borat ion (CKD- EPI) Equat ion (Terell parker et. al 2020) as recom juana d by the Natio nal Kidne y Found ation . eGFR is based on age, serum creat inine , and sex. CKD-E PI does not calcu late eGFR by race, does not apply to child kin (age <18 years ), and shoul d not be used in pregn elvira. Not Available [address], [address], 11/23/2024 11:21:55 11/20/1911/23/2024 BASIC METAB OLIC PANEL sodium 143 mmol/ L 136-14 5 Not Available [address], [address], 11/23/2024 11:21:55 11/20/19 25 11/23/2024 BASIC METAB OLIC PANEL potassium 4.0 mmol/ L 3.5-5. 1 Not Available [address], [address], 11/23/2024 11:21:55 11/20/19 25 11/23/2024 BASIC METAB OLIC PANEL chloride 103 mmol/ L 96-107 Not Available [address], [address], 11/23/2024 11:21:55 11/20/19 25 11/23/2024 BASIC METAB OLIC PANEL anion gap 10.9 5.0-15 .0 Not Available [address], [address], 11/23/2024 11:21:55 11/20/19 25 11/23/2024 BASIC METAB OLIC PANEL CO2 29 mmol/ L 21-32 Not Available [address], [address], 11/23/2024 11:21:55 11/20/19 25 11/23/2024 BASIC METAB OLIC PANEL calcium 9.1 mg/dL 8.5-10 .3 Not Available [address], [address], 11/23/2024 11:21:55 11/20/19 25 11/23/2024 LIPID PANEL cholesterol 223 mg/dL <200 mg/dl Nhung able 200-2 39 mg/dl Borde rline High >240 mg/dl High Not Available [address], [address], 11/23/2024 11:21:57 11/20/19 25 11/23/2024 LIPID PANEL triglyceride s 139 mg/dL <150 mg/dL Latoya l 150-1 99 mg/dL Borde rline High 200-4 99 mg/dL High >500 mg/dL Very High Not Available [address], [address], 11/23/2024 11:21:57 11/20/19 25 11/23/2024 LIPID PANEL direct HDL 65 mg/dL <40 mg/dl - Major Risk for CHD >60 mg/dl - Negat ezequiel Risk for CHD Not Available [address], [address], 11/23/2024 11:21:57 11/20/19 25 11/23/2024 DIREC T LDL direct LDL 138 mg/dL RISK CATEG ORY LDL GOAL _ CHD or CHD Risk Equiv alent s <100 mg/dl (10-y ear risk >20%) 2+ Risk Facto rs <130 mg/dl (10-y ear risk <= 20%) 0-1 Risk Facto r <160 mg/[facility] with 0-1 risk facto r have a 10 year risk <10%, thus 10 year risk asses ment in peopl e with 0-1 risk facto r is not necrosie kathy. Not Available [address], [address], 11/23/2024 11:21:58 11/20/19 25 11/23/2024 DRUG SCREE N-8, URINE , WITH CONFI RMATI ON GC/MS amphetamine NEG. negati ve Not Available [address], [address], 11/23/2024 14:10:27 11/20/19 25 11/23/2024 DRUG SCREE N-8, URINE , WITH CONFI RMATI ON GC/MS barbiturates NEG. negati ve Not Available [address], [address], 11/23/2024 14:10:27 11/20/19 25 11/23/2024 DRUG SCREE N-8, URINE , WITH CONFI RMATI ON GC/MS benzodiazepi ne NEG. negati ve Not Available [address], [address], 11/23/2024 14:10:27 11/20/19 25 11/23/2024 DRUG SCREE N-8, URINE , WITH CONFI RMATI ON GC/MS cocaine NEG. negati ve Not Available [address], [address], 11/23/2024 14:10:27 11/20/19 25 11/23/2024 DRUG SCREE N-8, URINE , WITH CONFI RMATI ON GC/MS opiates POS. negati ve GCMS= Sampl e [facility] to [facility] confi rmati on by GC/MS . Not Available [address], [address], 11/23/2024 14:10:27 11/20/19 25 11/23/2024 DRUG SCREE N-8, URINE , WITH CONFI RMATI ON GC/MS methadone NEG. negati ve Not Available [address], [address], 11/23/2024 14:10:27 11/20/19 25 11/23/2024 DRUG SCREE [...] ng/ml Fenta nyl 1 ng/ml Not Available [address], [address], 11/23/2024 14:10:27 11/20/19 25 11/23/2024 DRUG SCREE N-8, URINE , WITH CONFI RMATI ON GC/MS oxycodone POS. negati ve GCMS= Sampl e sent to [facility] for confi rmati on by GC/MS . Not Available [address], [address], 11/23/2024 14:10:27 11/20/19 25 11/25/2024 DRUG TOX MONIT ORING OPIAT ES EXPAN DED QN, U codeine NEGATI VE NG/mL <50 See Note 1 Not Available [facility] [address], [address], 11/25/2024 09:08:15 11/20/19 25 11/25/2024 DRUG TOX MONIT ORING OPIAT ES EXPAN DED QN, U hydrocodone NEGATI VE NG/mL <50 See Note 1 Not Available [facility] [address], [address], 11/25/2024 09:08:15 11/20/19 25 11/25/2024 DRUG TOX MONIT ORING OPIAT ES EXPAN DED QN, U hydromorphon e NEGATI VE NG/mL <50 See Note 1 Not Available [facility] [address] [place], [address], 11/25/2024 09:08:15 11/20/19 25 11/25/2024 DRUG TOX MONIT ORING OPIAT ES EXPAN DED QN, U morphine 3611 NG/mL <50 high See Note 1 Not Available [facility] [place] [facility] [address], [place], [address], 11/25/2024 09:08:15 11/20/19 25 11/25/2024 DRUG TOX MONIT ORING OPIAT ES EXPAN DED QN, U norhydrocodo ne NEGATI VE NG/mL <50 See Note 1 Not Available [facility] [place] [facility] [address], [place], [address], 11/25/2024 09:08:15 11/20/1911/25/2024 DRUG TOX MONIT ORING OPIAT ES EXPAN DED QN, U noroxycodone 990 NG/mL <50 high See Note 1 Not Available [facility] [place] [facility] [address], [place], [address], 11/25/2024 09:08:15 11/20/19 25 11/25/2024 DRUG TOX MONIT ORING OPIAT ES EXPAN DED QN, U oxycodone 864 NG/mL <50 high See Note 1 Not Available [facility] [place] [facility] [address], [place], [address], 11/25/2024 09:08:15 11/20/19 25 11/25/2024 DRUG TOX MONIT ORING OPIAT ES EXPAN DED QN, U oxymorphone 1254 NG/mL <50 high See Note 1 Not Available [facility] [place] [facility] [address], [place], [address], 11/25/2024 09:08:15 11/20/1911/25/2024 DRUG TOX MONIT ORING OPIAT ES EXPAN [...] alist : [phone] ( [phone] ), M-F, 8am-6 pm EST. Not Available [facility] [place] [facility] [address] [place], [place], [address], 11/25/2024 09:08:15 12/14/19 24 12/13/2023 MAMMO , [...] Leo beckman Physic avery: Brenda Alexander ms [facility] [place] [facility] [address], [place], [address], 12/16/2023 08:20:33 06/29/20 24 06/29/2024 XR, chest No observ ation record ed. [address], [address], 06/30/2024 12:46:10 09/03/19 25 06/29/2024 XR, chest No observ ation record ed. [address], [address], 09/03/2024 10:32:21 09/03/19 25 06/29/2024 XR, chest No observ ation record ed. [address], [address], 09/04/2024 08:33:47 09/03/19 25 09/03/2024 XR, chest [...] t's prior radiog raphs become availa ble. Readsusan beckman Physic avery: Brenda Alexander ms [facility] (Imaging) [address] [place], [address], 09/03/2024 15:33:10 09/10/19 25 09/03/2024 XR, chest [...] Leo beckman Physic avery: Brenda Alexander ms [facility] (Imaging) [address] [place], [address], 09/10/2024 07:26:54 12/17/19 25 12/14/2024 CT, chest No observ ation record ed. [address], [place], [address], 01/08/2025 15:31:24 03/05/20 25 03/05/2025 XR, wrist , 2 view No observ ation record ed. [facility] [address] [facility], [place], [address], 03/10/2025 13:09:42 03/08/20 25 03/08/2025 CT, chest , w/o contr ast No observ ation record ed. [facility] [address] [address] [facility], [place], [address], 03/10/2025 13:09:42 Result Notes Documentation Provider Name and Address [...] radiographs become available. Reading Physician: Juancho wolf [facility] 09/03/2024 15:33:10 Xr, Chest : Addendum: [...] radiographs become available. Reading Physician: Juancho wolf [facility] 09/10/2024 07:26:55 Problems Name Problem SNOMED Code Status Onset Date Resolution Date Notes Provider Name and Address Organization Details Recorded Time Recurren t major depressi ve episodes 579544177 Active 2011 Not Available [facility] 0 14:16:47 Major depressi on, melancho lic type 145422617 Completed 201311/25/2020 Removal Reason: recurren t coded and on active problem list Rita SHERRY Arevalo, [facility] 1 06:21:11 Chronic obstruct ezequiel pulmonar y disease 32838879 Active Not Available [facility] 0 14:16:47 Benign essentia l hyperten joshua 6162068 Active 2018 Not Available [facility] 0 14:16:47 Mixed hyperlip idemia 793867858 Active 2018 Not Available [facility] 0 14:16:47 Opioid dependen ce 05611682 Active 2020 coded 01/28/20 Virtual Visit Rita SHERRY Arevalo, [facility] 1 06:21:51 Essentia l hyperten [email or web address] [id number] Active 2021 Vicky Bentley MD [address] [place] [address], [address] [place] [address] , [facility] 12:24:07 History of acute respirat ory failure [id number] 666541 Active 2023 Shruthi Foy NP [address] [place] [address], [phone] , [facility] 4 09:55:01 Nodule of lung 953777547 Active 2023 Shruthi Foy NP [address] [place] [address], [phone] , [facility] 4 09:55:24 Closed fracture of right wrist 43801090048 427373 Active 2024 per ER note 03/05/25, to f/u w/ ortho Darling Weaver RN BSN maryann, [facility] 5 14:51:27 Acquired trigger finger 2976633 Completed 200404/02/2011 Not Available [facility] 3 03:06:02 Contusio n 550665513 Completed 200102/06/2011 Not Available [facility] 3 03:06:02 Open wound of finger 654837382 Completed 200002/06/2011 Not Available [facility] 3 03:06:02 Contact dermatit is 26113867 Completed 200204/02/2011 Not Available [facility] 3 03:06:02 Gastroes ophageal reflux disease 781540408 Active Not Available [facility] 0 14:16:48 Cellulit is and abscess of hand excludin g digits Completed 200002/06/2011 Not Available [facility] 3 03:06:02 Diarrhea 46668919 Completed 200204/02/2011 Not Available [facility] 3 03:06:02 Disorder of trunk 954353804 Completed 200102/06/2011 Not Available [facility] 3 03:06:02 Sciatica 40497402 Completed 200104/02/2011 Not Available [facility] 3 03:06:02 Contact dermatit is due to plants, except food Completed 200002/06/2011 Not Available [facility] 3 03:06:02 Emphysem atous bronchit is 358870902 Active Not Available [facility] 0 14:16:47 Chronic asthmati c bronchit is 519453997 Active 2003 Not Available [facility] 0 14:16:47 Chronic pain 21434164 Active Not Available [facility] 0 14:16:47 Chronic pain 55626432 Completed 04/02/2011 Not Available [facility] 3 03:06:02 Low back pain 640274793 Completed 200102/06/2011 Not Available [facility] 3 03:06:02 Displace ment of lumbar interver tebral disc without myelopat hy 79601518 Active 2001 Not Available [facility] 0 14:16:48 Asthma 365851957 Active 1999 Not Available [facility] 0 14:16:47 Pain in limb 78778471 Completed 200102/06/2011 Not Available [facility] 3 03:06:02 Cellulit is and abscess of trunk 170981700 Completed 200204/02/2011 Not Available [facility] 3 03:06:02 Problem Notes None recorded. Procedures Surgical History Date Name Laterality Status Provider Name and Address Organization Details Recorded Time 07/14/20 24 Post hospital/SNF follow-up/Transiti onal Care completed Angy Yi [facility] 07/14/2024 14:30:48 06/05/20 24 Medicare Wellness Visit completed Skye Steve [facility] 06/05/2024 11:34:39 06/05/20 24 Cardiovascular disease risk reduction counseling completed Vicky Bentley MD [address] [place] [address], [phone], [facility] 06/06/2024 19:42:41 11/18/19 24 Oxygen Administration completed Yi Mckenzie RN [facility] 11/18/2023 11:29:28 11/11/19 24 Oxygen Administration completed Mariza Martin LPN [facility] 11/11/2023 09:16:23 05/31/20 23 Medicare Wellness Visit completed Neil Brewster CMA [facility] 05/31/2023 12:36:43 05/31/20 23 Cardiovascular disease risk reduction counseling completed Vicky Bentley MD [address] [place] [address], [phone], [facility] 06/02/2023 19:50:47 03/18/20 23 Asthma Control Test (12 + years old) completed Carlos Black MA [facility] 03/18/2023 16:15:16 05/31/20 22 Post hospital/SNF follow-up/Transiti onal Care completed Neil Brewster [facility] 05/31/2022 08:46:05 04/25/20 22 Medicare Wellness Visit completed Rima yee MA [facility] 04/25/2022 08:34:47 04/25/20 22 Alcohol use screening completed Rima yee MA [facility] 04/25/2022 08:34:47 04/25/20 22 Cardiovascular disease risk reduction counseling completed Rima yee MA [facility] 04/25/2022 08:34:47 08/23/20 21 Asthma Control Test (12 + years old) completed Malgorzata Campo MA [facility] 08/22/2021 15:11:05 05/12/20 20 prevention-cardiov ascular risk reduction counseling completed Anna Montelonog MA [facility] 05/11/2020 16:37:01 05/12/20 20 prevention-annual alcohol misuse screening completed Anna Montelongo MA [facility] 05/11/2020 16:37:01 05/12/20 20 Medicare Annual Wellness Visit completed Anna Montelongo MA [facility] 05/11/2020 16:37:01 05/11/20 19 Medicare Wellness Visit [facility] 05/11/2019 15:29:26 05/11/20 19 Asthma Control Test (12 + years old) [facility] 05/11/2019 15:37:53 08/16/20 16 Cholecystectomy completed Kleber Piper MD [address] [place] [address], [phone], [facility] 08/17/2016 16:42:42 09/26/19 16 Medicare Wellness Visit completed Kleber Piper MD [address] [place] [address], [phone], [facility] 09/26/2015 09:39:10 03/17/20 13 Asthma Control Test (12 + years old) completed Kleber Piper MD [address] [place] [address], [phone], [facility] 03/17/2013 13:44:57 Tonsillectomy completed Not Available [facility] 07/19/2011 06:05:52 Imaging Results None recorded. Procedure Notes None recorded. Medical Equipment None Reported. Allergies Allergen ID Allergen Name Allergen Category Reaction Reaction Severity Criticality Documentation Date Start Date Code Code System Note Provider Name and Address Organization Details Recorded Time 432718 budesonid e medicatio n wheezing severe high 03/18/2023 RxNorm TIMA [facility] 3 16:07:55 Medications Name Sig Start Date Stop [...] 2 TABLETS BY MOUTH DAILY 11/19 completed griselsimaral 11/19/24 DS Not Available Not Available Not [...] Available Not Available No t Available Fluzone [id number] (PF) 45 mcg (15 mcg x 3)/0.5 mL intramusc ular syringe TO BE ADMINIST ERED BY [employer] FOR IMMUNIZA TION 01/09 completed Not Available [...] route for suspecte d opioid overdose . [place] 1 mL in one nostril. Repeat after 3 minutes if no or minimal response 2023 active Not Available Not Available Not Avai lable Flucelvax Quad (PF) 60 mcg (15 mcg x 4)/0.5 mL IM syringe TO BE ADMINIST ERED BY [employer] FOR IMMUNIZA TION 07/04 completed Not Available Not Available Not Available oxygen Use 3 liters via nasal cannula on exertion , or as directed 2023 active Per d/c summary [facility] 07/04/24, uses [employer] Not Available [...] inhalati on route. 10/01 completed not using 10/01/22 S Not Available Not Available Not Available [...] % 2 L/min 96 /min 25.6 kg/m2 96626.2 6 g 114/66 mm[Hg] Skye Steve MA [facility] 5 11:03:21 Date Recorded Body height Body mass index (BMI) Body weight Heart rate Systolic And Diastolic Provider Name and Address Organization Details Last Updated DateTime 12/16/2023 162.56 cm 24.9 kg/m2 43417.89 g 88 /min 122/68 mm[Hg] Skye Steve MA [facility] 12/16/2023 11:35:41 Date Recorded Body height Body mass index (BMI) Body weight Heart rate Oxygen saturation Oxygen saturation in Arterial blood by Pulse oximetry Inhaled oxygen flow rate Systolic And Diastolic Provider Name and Address Organization Details Last Updated DateTime 5 162.56 cm 26.4 kg/m2 17093.2 2 g 80 /min 94 % 94 % 3 L/min 140/70 mm[Hg] Tabby Garza LPN [facility] 5 12:30:15 Date Recorded Body height Oxygen saturation Oxygen saturation in Arterial blood by Pulse oximetry Heart rate Body mass index (BMI) Body weight Systolic And Diastolic Provider Name and Address Organization Details Last Updated DateTime 4 162.56 cm 95 % 95 % 76 /min 26.3 kg/m2 49380.7 3 g 126/72 mm[Hg] Skye Steve MA [facility] 4 11:14:02 Date Recorded Body height Oxygen saturation Oxygen saturation in Arterial blood by Pulse oximetry Heart rate Body mass index (BMI) Body weight Systolic And Diastolic Provider Name and Address Organization Details Last Updated DateTime 4 162.56 cm 97 % 97 % 86 /min 26.5 kg/m2 81409.0 2 g 122/66 mm[Hg] Skye Steve MA [facility] 4 11:42:03 Date Recorded Body height Body mass index (BMI) Body weight Heart rate Oxygen saturation Oxygen saturation in Arterial blood by Pulse oximetry Systolic And Diastolic Provider Name and Address Organization Details Last Updated DateTime 4 162.56 cm 25.6 kg/m2 15087.3 6 g 94 /min 94 % 94 % 100/62 mm[Hg] Angy Yi [facility] 4 14:37:12 Social History Question Answer Notes LastModified by Organizat ion Details LastModified Time Tobacco Smoking Status [facility]/20[facility]2021 12:30:50 Do You Have An [...] Used? None 7 Information not available 07/19/2011 Education 10 [email or web address] Information no t available 10/01/2022 How Many Days Of Moderate To Strenuous Exercise, Like A Brisk Walk, Did You Do In The Last 7 Days? 7 [email or web address] Information not available 10/01/2022 Have There Been Any Changes To Your Family Or Social Situation? No Waiting For Grandson To Be Born [email or web address] Information not available 06/05/2024 When Did You Quit Smoking? 16+yearssin feliciano vasquez Information not available 08/19/2023 Are There Any Guns Present In Your Home? Yes LOCKED Information not available 10/04/2011 Do You Use Insect Repellent Routinely? No [email or web address] Information not available 06/05/2024 Live Alone Or With Others? With Others [email or web address] Information not available 10/01/2022 CSRP - Narcotics Yes 7 Information not available 07/19/2011 CSRP Contract Signed And Discussed Yes Dr. Bentley Contract 10/01/2022 Narcotics 7 Information not available 07/19/2011 Patient Has Health Care Proxy Signed And In Chart Yes Given 05/11/19 Aniyah Pt To Send Copy 05/31/23 Sabiha [email or web address] Information not available 05/12/2019 Marital Status [email or web address] Informatio n not available 10/01/2022 Mosquito Repellent Used Routinely Yes [email or web address] Information not available 10/01/2022 What Was The Date Of Your Most Recent Tobacco Screening? 11/19/2024 [email or web address] Information not available 11/19/2024 How Many Children Do You Have? 3 7 Information not available 07/19/2011 What Is Your Current Pack Years? 10-19packye ars [email or web address] Information not available 04/09/2024 What Is Your [...] How Much Tobacco Do You Smoke? No [email or web address] Information not available 04/09/2024 What Types Of Sporting Activities Do You Participate In? None Information not available 07/19/2011 General Stress Level Low [email or web address] Information not available 10/01/2022 Do You Use Sunscreen Routinely? No [email or web address] Information not available 06/05/2024 How Many Years Have You Smoked Tobacco? 15 alot [email or web address] Information not available 04/09/2024 Do You Have [...] level of alcohol consumption? Occasional veryvery rare [email or web address] Information not available 06/05/2024 Do you or [...] exercise level? Moderate 5 miles walking daily [email or web address] Information not available 06/05/2024 Mental Status Question [...] influenza, unspecified formulation 3 completed Not Available [facility] 07/18/2011 05:21:07 influenza, unspecified formulation 4 completed Not Available [facility] 07/18/2011 05:21:07 Influenza, split virus, trivalent, preservative 1 completed Not Available [facility] 09/19/2019 02:38:55 pneumococcal polysaccharide PPV23 1 completed Not Available [facility] 09/19/2019 02:14:32 Td(adult) unspecified formulation 5 completed Not Available [facility] 07/18/2011 05:21:07 Tdap 3 completed Not Available [facility] 09/19/2019 02:29:25 Influenza, split virus, trivalent, PF 4 completed Not Available [facility] 09/19/2019 02:26:36 Influenza, high-dose, trivalent, PF 3 completed Not Available [facility] 10/01/2022 10:56:31 Influenza, split virus, quadrivalent, PF 3 completed Not Available [facility] 10/01/2022 10:56:31 Influenza, split virus, quadrivalent, preservative 8 completed Not Available [facility] 10/01/2022 10:56:30 Influenza, split virus, quadrivalent, preservative 9 completed Not Available [facility] 10/01/2022 10:56:30 pneumococcal polysaccharide PPV23 1 completed Malgorzata Campo MA [facility] 04/05/2021 15:32:17 Td (adult), 2 Lf tetanus toxoid, preservative free, adsorbed 3 completed Vicky Bentley MD [address] [place] [address], [phone], [facility] 03/23/2023 14:44:29 COVID-19, mRNA, LNP-S, PF, 100 mcg/0.5mL dose or 50 mcg/0.25mL dose 1 [facility] 12/16/2023 11:12:22 COVID-19, mRNA, LNP-S, PF, 100 mcg/0.5mL dose or 50 mcg/0.25mL dose 1 [facility] 12/16/2023 11:12:22 COVID-19, mRNA, LNP-S, PF, 100 mcg/0.5mL dose or 50 mcg/0.25mL dose 1 [facility] 12/16/2023 11:12:22 COVID-19, mRNA, LNP-S, PF, 100 mcg/0.5mL dose or 50 mcg/0.25mL dose 2 [facility] 12/16/2023 11:12:22 COVID-19, mRNA, LNP-S, bivalent, PF, 50 mcg/0.5 mL or 25mcg/0.25 mL dose 2 completed TIMA Anglin [facility] 12/16/2023 11:12:22 zoster recombinant 2 [facility] 12/16/2023 11:12:21 Influenza, high-dose, quadrivalent, PF 2 completed [facility] 12/16/2023 11:12:22 zoster recombinant 2 completed [facility] 12/16/2023 11:12:22 influenza, unspecified formulation 3 [facility] 08/19/2023 09:23:44 Influenza, MDCK, quadrivalent, PF 7 completed [facility] 12/16/2023 11:12:21 Influenza, high-dose, quadrivalent, PF 1 completed [facility] 12/16/2023 11:12:22 Influenza, high-dose, quadrivalent, PF 3 completed [facility] 12/16/2023 11:12:22 RSV, bivalent, protein subunit RSVpreF, diluent reconstituted, 0.5 mL, PF 3 completed [facility] 12/16/2023 11:12:22 COVID-19, mRNA, LNP-S, PF, melquiades-sucrose, 30 mcg/0.3 mL 3 completed [facility] 12/16/2023 11:12:22 Influenza, split virus, trivalent, preservative 9 completed [facility] 12/16/2023 11:12:22 Influenza, split virus, trivalent, PF 0 completed [facility] 12/16/2023 11:12:22 Influenza, split virus, trivalent, PF 6 completed [facility] 12/16/2023 11:12:22 Influenza, split virus, trivalent, PF 5 completed [facility] 12/16/2023 11:12:22 Influenza, split virus, quadrivalent, PF 8 completed [facility] 12/16/2023 11:12:22 Influenza, high-dose, trivalent, PF 4 completed [facility] 06/05/2024 11:38:31 COVID-19, mRNA, LNP-S, PF, melquiades-sucrose, 30 mcg/0.3 mL 4 completed Skye Steve MA [facility], [facility] 11/19/2024 10:55:33 influenza, unspecified formulation 0 completed Not Available [facility] 07/18/2011 05:20:34 Past Encounters Encounter ID Performer Location Encounter Start Date Encounter Closed Date Diagnosis/Indication Diagnosis SNOMED-CT Code Diagnosis ICD10 Code Diagnosis Note [id number] [facility] , [facility], [address] [place] [address] 08/05/2000 14:05:00 09/22/2008 02:02:29 [id number] Tabby Chowdary MD [facility] [address] [place] [address] 01/12/2001 14:30:00 09/22/2008 02:02:29 [id number] Antony Kerns III, MD [facility] [address] [place] [address] 01/18/2001 10:45:00 09/22/2008 02:02:29 [id number] Iker Serrano MD [facility] [address] [place] [address] 02/22/2001 11:45:00 09/22/2008 02:02:29 [id number] Bee Alvarado NP [facility], [address] [place] [address] 08/22/2001 09:00:00 09/22/2008 02:02:29 [id number] [facility] , [address] [address] 10/07/2001 09:30:00 09/22/2008 02:02:29 [id number] Leroy Adams MD Radiology , [address] [address] 10/07/2001 00:00:00 09/22/2008 02:02:29 [id number] Kleber Piper MD , [facility], [address] [place] [address] 12/23/2001 10:30:00 09/22/2008 02:02:29 [id number] [facility] RADIOLOGY Technologi Radiology , [facility] [address] [place] [address] 12/23/2001 10:45:00 09/22/2008 02:02:29 [id number] [facility] RADIOLOGY [facility] Radiology , [facility] [address] [place] [address] 12/23/2001 00:00:00 09/22/2008 02:02:29 [id number] Dallin Dowell. , [facility], [address] [place] [address] 02/04/2002 13:59:33 09/22/2008 02:02:29 [id number] Kleber Piper MD , [facility], [address] [place] [address] 02/06/2002 15:43:21 09/22/2008 02:02:29 [id number] Shania perez, PT Physical Therapy, [address] [address] 02/10/2002 10:28:49 09/22/2008 02:02:29 [id number] Shania perez, PT Physical Therapy, [address] [address] 02/20/2002 10:12:54 09/22/2008 02:02:29 [id number] Kleber Piper MD , [facility], [address] [place] [address] 02/25/2002 09:10:34 09/22/2008 02:02:29 [id number] Kleber Piper MD , [facility], [address] [place] [address] 03/20/2002 08:24:14 09/22/2008 02:02:29 [id number] Kleber Piper MD , [facility], [address] [place] [address] 05/18/2002 09:05:54 09/22/2008 02:02:29 [id number] Shania perez, PT Physical Therapy, [facility] [address] [place] [address] 05/21/2002 08:24:50 09/22/2008 02:02:29 [id number] Shania perez, PT Physical Therapy, [facility] [address] [place] [address] 07/27/2002 12:51:55 09/22/2008 02:02:29 [id number] Kleber Piper MD , [facility], [address] [place] [address] 08/31/2002 10:33:45 09/22/2008 02:02:29 [id number] Dallin Dowell. , [facility], [address] [place] [address] 11/06/2002 15:00:08 09/22/2008 02:02:29 [id number] MD JONNY Koo, [facility], [address] [place] [address] 12/28/2002 10:14:58 09/22/2008 02:02:29 [id number] Kleebr Piper MD , [facility], [address] [place] [address] 02/12/2003 08:56:29 09/22/2008 02:02:29 [id number] Kleber Piper MD , [facility], [address] [place] [address] 03/02/2003 14:21:56 09/22/2008 02:02:29 [id number] [facility] - [facility] [address] [place] [address] 03/02/2003 15:01:11 09/22/2008 02:02:29 [id number] [facility] - [address] [address] 03/04/2003 09:31:51 09/22/2008 02:02:29 [id number] Kleber Piper MD , [facility], [address] [place] [address] 05/28/2003 11:56:50 05/31/2003 14:28:24 [id number] [facility] , [facility], [address] [place] [address] 06/07/2003 17:44:06 06/07/2003 17:44:11 [id number] Kleber Piper MD [facility], [address] [address] 00:00:00 09/22/2008 02:02:29 [id number] Kleber Piper MD , [facility], [address] [place] [address] 02/28/2004 09:46:53 02/28/2004 13:18:03 [id number] [facility] , [facility], [address] [place] [address] 06/05/2004 14:57:20 06/06/2004 08:42:24 [id number] Kleber Piper MD , [facility], [address] [place] [address] 02/07/2005 08:38:05 02/07/2005 14:19:37 [id number] Kleber Piper MD , [facility], [address] [place] [address] 07/31/2005 15:16:01 09/22/2008 02:02:29 [id number] Kleber Piper MD , [facility], [address] [place] [address] 02/12/2006 09:41:31 02/12/2006 11:17:42 [id number] Kleber Piper MD , [facility], [address] [place] [address] 02/18/2007 11:03:35 02/18/2007 14:32:16 [id number] [facility] , [facility], [address] [place] [address] 05/16/2009 11:44:34 05/16/2009 16:17:05 [id number] Kleber Piper MD , [facility], [address] [place] [address] 07/27/2009 10:04:18 07/27/2009 13:27:36 [id number] [facility] SPIROMETRY CL[facility] , [facility], [address] [place] [address] 08/05/2009 09:19:22 08/09/2009 14:41:32 [id number] Kleber Piper MD , [facility], [address] [place] [address] 08/02/2010 08:53:38 08/02/2010 12:09:07 [id number] Kleber Piper MD , [facility], [address] [place] [address] 12/25/2010 13:23:09 12/27/2010 09:40:30 [id number] Kleber Piper MD , [facility], [address] [place] [address] 04/02/2011 07:40:36 04/02/2011 08:21:58 [id number] Kleber Piper MD , [facility], [address] [place] [address] 06/26/2011 08:44:23 06/26/2011 10:14:38 [id number] [facility] FP, [facility], [address] [place] [address] 06/29/2011 07:34:11 06/29/2011 13:26:43 [id number] Kleber Piper MD , [facility], [address] [place] [address] 10/04/2011 09:40:48 10/04/2011 10:52:43 [id number] Bee Alvarado NP , [facility], [address] [place] [address] 11/02/2011 09:07:34 11/02/2011 09:32:35 [id number] Kleber Piper MD , [facility], [address] [place] [address] 01/01/2012 09:13:07 01/03/2012 09:26:15 [id number] Kleber Piper MD , [facility], [address] [place] [address] 04/02/2012 08:48:27 04/02/2012 09:28:20 [id number] Kleber Piper MD , [facility], [address] [place] [address] 08/11/2012 08:10:32 08/11/2012 08:45:50 [id number] Kleber Piper MD , [facility], [address] [place] [address] 11/12/2012 10:12:37 11/12/2012 10:57:39 [id number] Kleber Piper MD , [facility], [address] [place] [address] 03/17/2013 09:48:52 03/17/2013 10:58:55 [id number] Kleber Piper MD , [facility], [address] [place] [address] 04/09/2013 08:20:21 04/09/2013 08:43:03 [id number] Kleber Piper MD , [facility], [address] [place] [address] 05/06/2013 08:26:24 05/07/2013 16:29:59 Asthma [id number] Kleber Piper MD , [facility], [address] [place] [address] 06/02/2013 07:49:54 06/02/2013 08:42:29 Chronic pain 96890233 fair control on current regimen; continue same dose of narcotics; ibuprofen helps Gastroesop hageal reflux disease 394942857 Anxiety disorder 463843946 Moderate depression [id number] Kleber Piper MD , [facility], [address] [place] [address] 09/10/2013 09:55:05 09/10/2013 10:24:28 Chronic pain 15087747 same dose of morphine Gastroesop hageal reflux disease 409946701 Moderate depression 293780276 [id number] Kleber Piper MD , [facility], [address] [place] [address] 12/03/2013 09:16:06 12/03/2013 10:09:54 Chronic pain 93935959 same dose of morphine- not interested in trying to cut back pain control isstable but just moderate. failed adjuvent therapies. does take ibuprofen high dose Major depr ession, melancholic type [id number] doing okay off med for now Epidermoid cyst [id number] reassured Chronic ob structive pulmonary disease [id number] albuterol prn [id number] Lorenzo Wagner MD , [facility] [facility], [address] [place] [address] 12/05/2013 14:39:18 12/05/2013 15:34:14 Nausea and vomiting [id number] Dizziness [id number] Kleber Piper MD , [facility], [address] [place] [address] 12/07/2013 14:41:32 12/07/2013 15:26:42 Vertigo [id number] most likely BPV. call if returns. pt and educated about condition [id number] Kleber Piper MD , [facility], [address] [place] [address] 03/24/2014 10:44:05 03/24/2014 11:30:47 Sprain of foot 80231779 heat, rest, arch support and ibuprofen 400mg qid. call prn [id number] Kleber Piper MD , [facility], [address] [place] [address] 04/05/2014 10:03:37 04/05/2014 10:45:45 Counseling [id number] Adult heal th examination [id number] see Risk Assessment and Lifestyle Change Counseling section above Chronic ob structive pulmonary disease 21917278 albuterol with spacer prn Chronic pain 94094094 sa me dose of morphine- still with back pain but managing [id number] Kleber Piper MD , [facility], [address] [place] [address] 07/06/2014 09:20:02 07/06/2014 09:48:22 Chronic pain 88667873 same dose of morphine- still with back pain but managing Emphysemat ous bronchitis 665231072 albuterol with spacer prn Gastroesop hageal reflux disease 736634838 Influenza vaccine needed [id number] Kleber Piper MD , [facility], [address] [place] [address] 10/05/2014 09:14:57 10/05/2014 09:54:43 Chronic pain 01903216 same dose of morphine- still with back pain but managing Chronic ob structive pulmonary disease 73252428 albuterol with spacer prn Moderate depression 332506509 in remission off meds - uses clonazepam prn for anxiety [id number] Kleber Piper MD , [facility], [address] [place] [address] 12/30/2014 09:37:48 12/30/2014 10:24:03 Chronic pain 66769854 same dose of morphine- still with back pain but managing Chronic ob structive pulmonary disease 29610983 albuterol with spacer prn Moderate depression 605133414 in remission off meds - uses clonazepam prn for anxiety Gastroesop hageal reflux disease 806985212 [id number] Kleber Piper MD , [facility], [address] [place] [address] 03/24/2015 09:42:24 03/24/2015 10:13:01 Displacement of lumbar intervertebral disc without myelopathy 92931725 Chronic pain 69064043 sa me dose of morphine- still with back pain but managing Chronic ob structive pulmonary disease 54727921 albuterol with spacer prn Moderate depression 903335620 in remission off meds - uses clonazepam prn for anxiety Gastroesop hageal reflux disease 102118121 [id number] MD JONNY Koo, [facility], [address] [place] [address] 06/14/2015 09:17:07 06/14/2015 10:06:46 Chronic pain 17690186 R52 G89.29 same dose of morphine- still with back pain but managing Displaceme nt of lumbar intervertebral disc without myelopathy 20141263 M51.26 Chronic ob structive pulmonary disease 77171571 J44.9 albuterol with spacer prn Moderate depression 3104 96100 F32.1 in remission off meds - uses clonazepam prn for anxiety Gastroesop hageal reflux disease 806168741 K21.9 [id number] Kleber Piper MD , [facility], [address] [place] [address] 09/26/2015 08:41:09 09/26/2015 10:22:04 Chronic pain 76540994 R52 same dose of morphine- still with back pain but managing Adult heal th examination 792648862 Z00.00 see Risk Assessment and Lifestyle Change Counseling section above Counseling 415899203 Z71 .9 Screening for disorder 495458709 Z13.9 Chronic ob structive pulmonary disease 01483178 J44.9 albuterol with spacer prn Screening for malignant neoplasm of cervix 673390136 Z12.4 Mucocele of mouth 616653 008 K13.79 pt to let me know when she wants this removed. will refer to ENT [id number] Kleber Piper MD , [facility], [address] [place] [address] 12/26/2015 09:11:04 12/26/2015 10:13:09 Chronic pain 32523166 R52 same dose of morphine- still with back pain but managing Chronic ob structive pulmonary disease 75959887 J44.9 albuterol with spacer prn Gastroesop hageal reflux disease 935068274 K21.9 [id number] Kleber Piper MD , [facility], [address] [place] [address] 03/26/2016 09:20:40 03/27/2016 11:32:15 Chronic pain 65119456 R52 pt told of higher risk of if taking over 100mg of morphine a day. agrees to cut morpine short aciting from 15mg 5 times a day to qid. Epidermoid cyst of skin 545737622 L72.0 [id number] Kleber Piper MD , [facility], [address] [place] [address] 06/13/2016 08:15:17 06/13/2016 08:45:43 Moderate depression 914877472 F32.1 in remission off meds - Chronic ob structive pulmonary disease 87692424 J44.9 not fully controlled with albuterol alone Screening for malignant neoplasm of colon 045987473 Z12.11 refuses colonosoco py Displaceme nt of lumbar intervertebral disc without myelopathy 97443430 M51.26 try norpramin- decrease MSIR to 15mg 3 1/2 tabs qd. told how dangerous morphine doses above 100mg a day is. we are slowly tapering her down. [id number] Kleber Piper MD , [facility], [address] [place] [address] 09/26/2016 08:21:59 09/28/2016 16:20:53 Chronic pain 54112145 R52 reduce total morphine equivalent from 240 to about 200mg a day- warned about withdrawal sx Chronic ob structive pulmonary disease 41728711 J44.9 not controlled - d/c combivent- substitute albuterol 2 puffs q4h and add spiriva [id number] Kleber Piper MD , [facility], [address] [place] [address] 11/15/2016 08:31:10 11/15/2016 13:44:42 Acute bronchitis 20798910 J20.9 with laryngitis rest, hot liquids,hu midify air, call if worse Chronic ob structive pulmonary disease 78002732 J44.9 continue same meds. [id number] Kleber Piper MD , [facility], [address] [place] [address] 12/24/2016 10:37:46 12/25/2016 13:15:37 Opioid dependence 42398082 F11.20 we are gong to taper her MS contin to 3omg tid from 60mg bid starting next month Chronic ob structive pulmonary disease 31991839 J44.9 add a LABA to the LAMA, cont albuterol Displaceme nt of lumbar intervertebral disc without myelopathy 45578423 M51.26 has fair and stable pain control nowreduce total morphine equivalent want to get donw to 100mg or less [id number] Kleber Piper MD , [facility], [address] [place] [address] 04/02/2017 09:15:06 04/02/2017 09:55:13 Chronic pain 68499777 R52 reduce oxycodone for 15mg qid to 10mg 5 times a day. ureged to cut to qid if can. Chronic ob structive pulmonary disease 91226912 J44.9 on stiolto and albuterol doing better. check to make sure not taking spiriva in addition. [id number] Kleber Piper MD , [facility], [address] [place] [address] 07/04/2017 09:17:19 07/04/2017 09:53:26 Chronic pain 80641232 R52 increase oxycodone for 15mg qid from 10mg 5 times a day. at same time will decrease MS contin to 30mg bid from tid. pt understand s goal is to get her under 100mg of morphine equivalent s Opioid dependence 789409 00 F11.20 Chronic ob structive pulmonary disease 35829137 J44.9 stable [id number] Kleber Piper MD , [facility], [address] [place] [address] 10/07/2017 08:19:31 10/07/2017 08:51:10 Opioid dependence 67559711 F11.20 Chronic ob structive pulmonary disease 72077767 J44.9 stable Chronic pain 77376529 R5 2 increase oxycodone for 15mg qid from 10mg 5 times a day. at same time will decrease MS contin to 30mg bid from tid. pt understand s goal is to get her under 100mg of morphine equivalent s- this new proram gets her down about 8mg a day morphine equivalent Gastroesop hageal reflux disease 001134693 K21.9 [id number] Vicky Bentley MD , [facility], [address] [place] [address] 01/09/2018 11:33:07 01/09/2018 12:52:18 Chronic pain 32759499 R52 Opioid dependence 307544 00 F11.20 will begin process of decreasing pain meds - will switch to 10 mg tabs and decrease by 5 mg with next refill and continue 5 mg every month Chronic ob structive pulmonary disease 13539398 J44.9 Chronic back pain 624613 002 M54.9 [id number] Vicky Bentley MD , [facility], [address] [place] [address] 04/21/2018 15:22:33 04/21/2018 16:19:21 Adult health examination 825813098 Z00.00 see Risk Assessment and Lifestyle Change Counseling section above Depression screening 171 775640 Z13.89 depression screening tool administer ed, entered into emr, scored and discussed, time greater than 7.5 minutes Screening mammography 24 913419 Z12.31 Chronic pain 79996665 R5 2 Chronic ob structive pulmonary disease 65147219 J44.9 Gastroesop hageal reflux disease 147921470 K21.9 Screening for malignant neoplasm of colon 463051739 Z12.11 Referral for a DIRECT booked colonoscop y. This patient is a healthy ASA Class 1 or 2 patient (only mild systemic disease), or a STABLE, well controlled insulin dependent diabetic. They do not have serious cardiac disease ie TN/angiopl asty within 1 year, symptomati c CHF; renal failure with CKD 4 or 5; take Coumadin, Plavix, Aggrenox, etc. Alcohol dependence 52652 003 F10.21 not presenlty drinking [id number] GRISELDA Cook , [facility], [address] [place] [address] 05/08/2018 11:13:09 05/09/2018 12:51:26 Chronic obstructive pulmonary disease 48091811 J44.9 Increased blood pressure 92645329 R03.0 Screening for malignant neoplasm of cervix 569722725 Z12.4 [id number] Vicky Bentley MD , [facility], [address] [place] [address] 06/30/2018 08:46:24 07/30/2018 14:35:21 Screening for malignant neoplasm of colon 365152461 Z12.11 Referral for a DIRECT booked colonoscop y. This patient is a healthy ASA Class 1 or 2 patient (only mild systemic disease), or a STABLE, well controlled insulin dependent diabetic. They do not have serious cardiac disease ie TN/angiopl asty within 1 year, symptomati c CHF; renal failure with CKD 4 or 5; take Coumadin, Plavix, Aggrenox, etc. Plantar fasciitis 306565 003 M72.2 xray neg will take aleve and get arch supports and f/u Elevated blood-pressure reading without diagnosis of hypertension 161958353 R03.0 [id number] MD JONNY Koch, [facility], [address] [place] [address] 07/28/2018 09:36:35 07/29/2018 16:23:25 Long-term drug therapy 555709674 Z79.899 Chronic ob structive pulmonary disease 28633820 J44.9 Major depr ession, melancholic type 137801013 F32.9 continue daily exercise Benign ess ential hypertension 7038960 I10 bp has been slowly increasing discussed med choices and will start lisinopril Plantar fasciitis 002037 003 M72.2 xray neg will take aleve and get arch supports and f/u [id number] Vicky Bentley MD , [facility], [address] [place] [address] 10/30/2018 10:55:54 10/30/2018 12:06:09 Chronic pain 42034199 R52 will continue present opioid with drop to 4 per day oxycodone Opioid dependence 596287 00 F11.20 Long-term drug therapy 630351838 Z79.899 Screening for malignant neoplasm of colon 778246722 Z12.11 Referral for a DIRECT booked colonoscop y. This patient is a healthy ASA Class 1 or 2 patient (only mild systemic disease), or a STABLE, well controlled insulin dependent diabetic. They do not have serious cardiac disease ie TN/angiopl asty within 1 year, symptomati c CHF; renal failure with CKD 4 or 5; take Coumadin, Plavix, Aggrenox, etc. Chronic ob structive pulmonary disease 69633647 J44.9 stable on meds will continue [id number] Vicky Bentley MD , [facility], [address] [place] [address] 01/14/2019 13:33:47 01/15/2019 12:01:12 Chronic obstructive pulmonary disease 06071586 J44.9 stable on meds will continue Chronic pain 09597287 R5 2 will continue present opioid with drop to 4 per day oxycodone Opioid dependence 725457 00 F11.20 Benign ess ential hypertension 3550001 I10 bp has improved no chest pain or sob Gastroesop hageal reflux disease 217677743 K21.9 continue omeprazole Low back pain 993616914 M54.5 continue meds and walking Moderate depression 3104 10088 F32.1 continue meds [id number] Vicky Bentley MD FP, [facility], [address] [place] [address] 05/11/2019 15:17:58 05/11/2019 16:06:14 Chronic obstructive pulmonary disease 28629113 J44.9 stable on meds will continue Recurrent major depressive episodes 862295524 F33.9 presenltyu off medication s feels doing well Chronic pain 24111339 R5 2 will continue present opioid Adult heal th examination 294644140 Z00.00 see risk assessment and counseling section Depression screening 171 179087 Z13.89 depression screening tool administer ed, entered into emr, scored and discussed, time greater than 7.5 minutes Intrinsic asthma 2628284 08 J45.20 INTERMITTE NT Asthma- Based on history, physical assessment and peak flow the patients asthma is in control. Will continue the present medication s and follow-up in 6 months. The asthma action plan has been discussed. The patient verbalizes understand ing medication use.. The patient is in agreement with this plan. Counseling 761326698 Z71 .9 Benign ess ential hypertension 1223606 I10 bp has improved no chest pain or sob Mixed hyperlipidemia 267 186528 E78.2 doesnt want medicine but will consider and work on doet [id number] Vicky Bentley MD , [facility], [address] [place] [address] 10/02/2019 16:14:12 10/05/2019 14:18:03 Chronic pain 02175537 R52 will continue present opioid Long-term drug therapy 161044594 Z79.899 Benign ess ential hypertension 7290658 I10 bp has improved no chest pain or sob Chronic ob structive pulmonary disease 82493976 J44.9 stable on meds will continue Opioid dependence 709357 00 F11.20 Recurrent major depressive episodes 517324716 F33.9 presenltyu off medication s feels doing well [id number] Shruthi Foy NP FP, [facility], [address] [place] [address] 11/24/2019 11:19:00 12/02/2019 14:19:52 Pain of right ankle joint 1295094603 8244646 M25.571 POssible avulsion fx vs sprain. Advised RICE, alt with warm soaks and gentle stretches. Avoid weight bearing next few days as able. Send portal message with update 2-3d. We want to avoid xray if possible and advised pt that often these fractures are not casted anyway. Pt agrees with plan. [id number] Vicky Bentley MD , [facility], [address] [place] [address] 01/28/2020 15:58:28 02/10/2020 10:48:45 Gastroesophageal reflux disease 243243967 K21.9 continue omeprazole Chronic pain 73613305 R5 2 will continue present opioid Long-term drug therapy 659064206 Z79.899 Benign ess ential hypertension 3171067 I10 bp has improved no chest pain or sob Chronic ob structive pulmonary disease 00908094 J44.9 stable on meds will continue Opioid dependence 311592 00 F11.20 Recurrent major depressive episodes 258269823 F33.9 presenltyu off medication s feels doing well [id number] Vicky Bentley MD , [facility], [address] [place] [address] 05/12/2020 10:30:04 05/20/2020 15:45:10 Adult health examination 447498053 Z00.00 see risk assessment and lifestyle change section Depression screening 171 720817 Z13.89 depression screening tool administer ed, entered into emr, scored and discussed, time greater than 7.5 minutes Screening for alcohol abuse 433615303 Z13.39 Counseling 968779954 Z71 .89 including cardiovasc ular risk reduction counseling Asthma 387667296 J45.90 9 [id number] Vicky Bentley MD , [facility], [address] [place] [address] 10/24/2020 11:51:19 10/27/2020 16:26:22 Chronic pain 45108928 R52 will continue present opioid will need tox screen and f/u 3 months Screening mammography 24 251178 Z12.31 Benign ess ential hypertension 7813487 I10 bp has improved on lisinopril now at goal no chest pain or sob Chronic ob structive pulmonary disease 25273620 J44.9 stable on meds will continue [id number] Vicky Bentley MD , [facility], [address] [place] [address] 02/20/2021 11:48:24 03/06/2021 06:39:07 Opioid dependence 57915574 F11.90 for chronic back pain well controlled Recurrent major depressive episodes 602370896 F33.9 presenltyu off medication s feels doing well Chronic pain 63536456 R5 2 will continue present opioid will need tox screen and f/u 3 months Screening for osteoporosis 134439680 Z13.820 Benign ess ential hypertension 5288257 I10 bp has improved on lisinopril but has cough will switch to losartan [id number] Vicky Bentley MD , [facility], [address] [place] [address] 04/05/2021 14:17:05 04/05/2021 15:31:28 Chronic pain 15824300 R52 will continue present opioid will need tox screen and f/u 3 months Long-term current use of opiate analgesic drug 0306945424 85157 Z79.891 Active or passive immunization 971549471 Z23 Benign ess ential hypertension 7409754 I10 bp has improved on lisinopri and switched to losartan due to cough bp elevated will increase losartan [id number] Vicky Bentley MD , [facility], [address] [place] [address] 05/04/2021 11:02:05 05/19/2021 11:33:31 Essential hypertension 00492465 I10 bp elevate will inc amlodipine Chronic ob structive pulmonary disease 47263361 J44.9 stable on meds will continue [id number] Vicky Bentley MD , [facility], [address] [place] [address] 08/23/2021 15:03:06 09/01/2021 01:03:18 Mild persistent asthma 030162339 J45.30 (symptoms or bronchodil ator use more [...] the role of inflammati on Essential hypertension 38977305 I10 bpat goal on meds Mixed hyperlipidemia 267 956813 E78.2 Cholestero l is at goal Continue to work on diet and exercise as discussed Chronic pain 87243820 R5 2 will continue present opioid will need tox screen and f/u 3 months Long-term current use of opiate analgesic drug 6270403151 09444 Z79.891 Long-term drug therapy 571752157 Z79.899 Asthma 140262454 J45.90 9 Opioid dependence 422783 00 F11.20 for chronic back pain well controlled [id number] Vicky Bentley MD , [facility], [address] [place] [address] 11/23/2021 11:45:38 12/12/2021 10:41:46 Chronic pain 84238058 R52 will continue present opioid will need tox screen and f/u 3 months Long-term current use of opiate analgesic drug 5515526160 52211 Z79.891 Asthma 790017932 J45.90 9 stable has flovent Benign ess ential hypertension 8879718 I10 bp has improved on lisinopri and switched to losartan due to cough bp elevated will increase losartan Displaceme nt of lumbar intervertebral disc without myelopathy 69749385 M51.26 cause of chronic back pain Mixed hyperlipidemia 267 341118 E78.2 Cholestero l is at goal Continue to work on diet and exercise as discussed Long-term drug therapy 379600096 Z79.899 Essential hypertension 48567875 I10 bpat goal on meds [id number] Vicky Bentley MD , [facility], [address] [place] [address] 02/14/2022 16:18:12 02/15/2022 09:49:42 Chronic pain 73948885 R52 will continue present opioid will need tox screen and f/u 3 months Long-term current use of opiate analgesic drug 7620736628 21431 Z79.891 chronic back pain that has required chronic opioids to remain functional Essential hypertension 54085503 I10 bpat goal on meds Chronic ob structive pulmonary disease 50373308 J44.9 stable on meds will continue Mixed hyperlipidemia 267 449475 E78.2 Cholestero l is at goal Continue to work on diet and exercise as discussed Long-term current use of drug therapy 323806313 Z79.899 Constipation 19486021 K5 9.00 Opioid dependence 281169 00 F11.20 for chronic back pain well controlled [id number] Vicky Bentley MD , [facility], [address] [place] [address] 04/25/2022 15:46:45 05/03/2022 12:30:38 Adult health examination 656798011 Z00.00 see risk assessment and lifestyle change section Counseling 805325730 Z71 .9 including cardiovasc ular risk reduction counseling Depression screening 171 999139 Z13.31 depression screening tool administer ed, entered into emr, scored and discussed, time greater than 7.5 minutes Screening for alcohol abuse 160734684 Z13.39 Benign ess ential hypertension 2993533 I10 Mixed hyperlipidemia 267 822181 E78.2 Cholestero l is at goal Continue to work on diet and exercise as discussed Essential hypertension 33305487 I10 bpat goal on meds Hypertensi onBlood pressure is reasonable today.She will continue on amlodipine and hydrochlor othiazide, refills provided today. Osteoporosis 15673224 M8 1.0 Osteoporos isShe will continue on vitamin B12 and Kenneth vitamins for women daily.Enco uraged to exercise regularly. Prescripti on for 70 mg of alendronat e 1 tablet every week for 3 months was sent to [facility] in [place], [place]. Instructio ns on its usage were given. side effects and how tro take were discussed Asthma 624816268 J45.90 9 stable has flovent Chronic ob structive pulmonary disease 85033355 J44.9 stable on meds will continue COPDShe will continue on Spiriva and ProAir, refills provided today. Chronic pain 22655680 R5 2 will continue present opioid will need tox screen and f/u 3 months Chronic painShe will continue on long-actin g morphine and oxycodone. This note has been generated by Sanna SCHNEIDER and edited by Colby Abbas, Quality Documentat ion Specialist . [id number] Vicky Bentley MD , [facility], [address] [place] [address] 05/31/2022 11:10:05 07/13/2022 07:27:52 Chronic obstructive pulmonary disease 85998305 J44.9 COPDShe will continue on Spiriva and ProAir, refills provided today. exacerbati on has improved Pneumonia 969121594 J18. 9 improved [id number] Vicky Bentley MD , [facility], [address] [place] [address] 06/28/2022 10:54:36 06/28/2022 11:56:03 Chronic obstructive pulmonary disease 70290441 J44.9 COPDShe will continue on Spiriva and ProAir, refills provided today. exacerbati on has improved Benign ess ential hypertension 6177029 I10 Displaceme nt of lumbar intervertebral disc without myelopathy 48460402 M51.26 chronic pain controlled with opioids stable dose and feels keeps her functional Gastroesop hageal reflux disease 810976971 K21.9 stable on omeprazole has tried to stop beofre will continue [id number] Thaddeus Jaquez MD , [facility], [address] [place] [address] 07/31/2022 16:45:25 07/31/2022 17:59:23 Acute exacerbation of chronic obstructive pulmonary disease 803712458 J44.1 start meds, call if not MUCH better in 1-2 days Cough 91807894 R05.9 [id number] Kady Esteves MD , [facility], [address] [place] [address] 08/03/2022 14:15:09 08/03/2022 14:38:31 Acute exacerbation of chronic obstructive pulmonary disease 679086299 J44.1 extend prednisone , taper slowlycont inue and finish abxcall if not improving [id number] Vicky Bentley MD , [facility], [address] [place] [address] 10/01/2022 10:56:26 10/01/2022 14:12:39 Long-term current use of drug therapy 906041365 Z79.899 Chronic ob structive pulmonary disease 19768644 J44.9 COPDShe will continue on Spiriva and ProAir, refills provided today. exacerbati on has improved [id number] Vicky Bentley MD , [facility], [address] [place] [address] 12/28/2022 07:55:47 12/29/2022 09:48:33 Opioid dependence 89280502 F11.20 for chronic back pain well controlled Long-term current use of drug therapy 285522963 Z79.899 Osteoporosis 85966686 M8 1.0 Osteoporos isShe will continue on vitamin B12 and Kenneth vitamins for women daily.Enco uraged to exercise regularly. Prescripti on for 70 mg of alendronat e 1 tablet every week for 3 months [facility] [place], [place]. Instructio ns on its usage were given. side effects and how tro take were discussed Encouraged to continue alendronat e once a week. Benign ess ential hypertension 8327215 I10 Chronic as thmatic bronchitis 553764141 J44.9 Explained in detail regarding the etiology [...] Madeline Nation, Quality Documentat ion Specialist . [id number] Vicky Bentley MD , [facility], [address] [place] [address] 03/18/2023 15:51:40 03/18/2023 16:48:34 Mild intermittent asthma 341350409 J45.20 (symptoms or bronchodil ator use at [...] with this plan. Active or passive immunization 739937511 Z23 Chronic ob structive pulmonary disease 35542775 J44.9 COPDShe will continue on Spiriva and [...] ns on usage were given. Opioid dependence 783927 00 F11.20 for chronic back pain well controlled Benign ess ential hypertension 2076267 I10 Hypertensi onContinue with current medical management . Chronic pain 25779236 R5 2 will continue present opioid will [...] Colby Hernandez Quality Documentat ion Specialist . [id number] Vicky Bentley MD , [facility], [address] [place] [address] 05/31/2023 11:25:50 05/31/2023 17:18:50 Adult health examination 429326774 Z00.00 see risk assessment and lifestyle change section Depression screening 171 385076 Z13.31 depression screening tool administer ed Screening for alcohol abuse 696718204 Z13.39 Alcohol use screening tool administer ed Chronic pain 66074154 R5 2 will continue present opioid will [...] Long-term current use of opiate analgesic drug [id number] 74739 Z79.891 chronic back pain that has required chronic opioids to remain functional Counseled by member of primary health care team 467151950 Z71.9 Today we discussed ways to reduce [...] daily aspirin. Chronic ob structive pulmonary disease 06379087 J44.9 COPDShe will continue on Spiriva and [...] pharmacy. Instructio ns on usage were given. [id number] Vicky Bentley MD , [facility], [address] [place] [address] 08/19/2023 09:09:05 08/19/2023 16:52:40 Screening mammography 47041531 Z12.31 Acute exac erbation of chronic obstructive pulmonary disease 332096543 J44.1 DyspneaExp lained in detail regarding the [...] Irving, Quality Documentat ion Specialist . Pneumonia 150328184 J18. 9 [id number] Vicky Bentley MD , [facility], [address] [place] [address] 09/11/2023 10:12:54 09/11/2023 11:06:30 Long-term current use of drug therapy 532250070 Z79.899 Chronic ob structive pulmonary disease 84100781 J44.9 COPDShe will continue on Spiriva and [...] usage were given. Benign ess ential hypertension 8500330 I10 Hypertensi onContinue with current medical management . see above Chronic pain 34201333 R5 2 will continue present opioid will [...] ns on usage were given. see above [id number] Thaddeus Jaquez MD , [facility], [address] [place] [address] 11/11/2023 08:15:02 11/11/2023 14:00:42 Chronic obstructive pulmonary disease 38158643 J44.9 Pt with COPD with 3 days of acutely worsening SOB and SALEH with hypoxia. Pt was place on 2 L NC and O2 sat went up to 95%. When was removed, dropped down to 90% again. When pt first presented, O2 sat was 77% after ambulation into office.Dis cussed pt needs ER evaluation and tx and transport called. Hypoxia 086335429 G47.34 [id number] Kady Esteves MD , [facility], [address] [place] [address] 11/18/2023 10:34:29 11/19/2023 13:23:46 Chronic obstructive pulmonary disease 96231208 J44.9 continue w/ O2, discussed may be able to wean over the next 1-2 mos, goal O2 in low 90swill establish with pulmonolog ywill give 3 addl days prednisone given inspirator y and expiratory wheezing heard on exam todayconti nue w/ home inhalers and nebs prnf/u with worsening sx Hypoxemia 011083595 R09. 02 O2 sat around 90-93% at home on 2L RA at rest, 4L with movement Benign ess ential hypertension 7293557 I10 BP above goal todaypt has MM visit w/ PCP in 1 mos, will discuss then [id number] Vicky Bentley MD , [facility], [address] [place] [address] 12/16/2023 10:52:28 12/17/2023 12:22:58 Long-term current use of drug therapy 964805363 Z79.899 Osteoporosis 73078376 M8 1.0 Osteoporos isShe will continue on vitamin B12 and Kenneth vitamins for women daily.Enco uraged to exercise regularly. Prescripti on for 70 mg of alendronat e 1 tablet every week for 3 months was sent to [facility] in [place], [place]. Instructio ns on its usage were given. side effects and how tro take were discussed Encouraged to continue alendronat e once a week. Osteoporos Macario prescripti on refill for her osteoporos is medication has been provided. This note has been generated by Sanna SCHNEIDER and edited by Marianela Irving, Quality Documentat ion Specialist . Chronic ob structive pulmonary disease 40396289 J44.9 COPDShe will continue on Spiriva and [...] pharmacy. Instructio ns on usage were given. [id number] Vicky Bentley MD , [facility], [address] [place] [address] 04/09/2024 10:40:58 04/15/2024 11:14:01 Chronic pain 94253699 R52 will continue present opioid will need [...] Long-term current use of opiate analgesic drug 8358059210 77723 Z79.891 chronic back pain that has required chronic opioids to remain functional Long-term current use of drug therapy 217592652 Z79.899 Chronic ob structive pulmonary disease 51097465 J44.9 continue w/ O2, discussed may be able to wean over the next 1-2 mos, goal O2 in low 90swill establish with pulmonolog ywill give 3 addl days prednisone given inspirator y and expiratory wheezing heard on exam todayconti nue w/ home inhalers and nebs prnf/u with worsening sx Hypoxemia 550388032 R09. 02 O2 sat around 95 on ra has discontiju ed oxygen Benign ess ential hypertension 9256937 I10 BP at goal Osteoporosis 52870003 M8 1.0 Osteoporos isShe will continue on vitamin B12 and Kenneth vitamins for women daily.Enco uraged to exercise regularly. Prescripti on for 70 mg of alendronat e 1 tablet every week for 3 months was sent to [facility] in [place], [place]. Instructio ns on its usage were given. side effects and how tro take were discussed Encouraged to continue alendronat e once a week. Osteoporos iscontinue alendronat e tolerating well This note has been generated by Sanna SCHNEIDER and edited by Marianela Irving, Quality Documentat ion Specialist . [id number] Vicky Bentley MD , [facility], [address] [place] [address] 06/05/2024 11:18:08 06/09/2024 19:21:43 Adult health examination 288591642 Z00.00 see risk assessment and lifestyle change section Depression screening 171 051214 Z13.31 depression screening tool administer ed Screening for alcohol abuse 681877047 Z13.39 Alcohol use screening tool administer ed Screening for malignant neoplasm of colon 075355851 Z12.11 Referral for a DIRECT booked colonoscop y. This patient is a healthy ASA Class 1 or 2 patient (only mild systemic disease), or a STABLE, well controlled insulin dependent diabetic. They do not have serious cardiac disease ie TN/angiopl asty within 1 year, symptomati c CHF; renal failure with CKD 4 or 5; take Coumadin, Plavix, Aggrenox, etc. Asthma 050432122 J45.90 9 stable has flovent Benign ess ential hypertension 8713121 I10 BP at goal Chronic ob structive pulmonary disease 58923649 J44.9 continue w/ O2, discussed may be able to wean over the next 1-2 mos, goal O2 in low 90swill establish with pulmonolog ywill give 3 addl days prednisone given inspirator y and expiratory wheezing heard on exam todayconti nue w/ home inhalers and nebs prnf/u with worsening sx Chronic pain 12112878 R5 2 will continue present opioid will [...] usage were given. see above Opioid dependence 813497 00 F11.20 for chronic back pain well controlled Counseled by member of primary health care team 802271976 Z71.9 Today we discussed ways to reduce [...] practition er may recommend taking daily aspirin. [id number] KLEBER ALCANTAR DO , [facility], [address] [place] [address] 07/14/2024 13:48:47 07/16/2024 09:03:17 Chronic obstructive pulmonary disease 47070146 J44.9 Chronic Obstructiv e Pulmonary Disease (COPD)Rece [...] low salt diet to prevent fluid retention. [id number] Vicky Bentley MD , [facility], [address] [place] [address] 11/19/2024 10:32:57 11/20/2024 10:43:56 Chronic pain 08779203 R52 will continue present opioid will need [...] Long-term current use of opiate analgesic drug 7971951657 08839 Z79.891 chronic back pain that has required chronic opioids to remain functional Benign ess ential hypertension 2329563 I10 BP at goal Chronic ob structive pulmonary disease 70905225 J44.9 continue w/ O2, discussed may be able to wean over the next 1-2 mos, goal O2 in low 90swill establish with pulmonolog ywill give 3 addl days prednisone given inspirator y and expiratory wheezing heard on exam todayconti nue w/ home inhalers and nebs prnf/u with worsening sx Opioid dependence 071726 00 F11.20 for chronic back pain well controlled Osteoporosis 94757844 M8 1.0 Osteoporos isShe will continue on vitamin B12 and Kenneth vitamins for women daily.Enco uraged to exercise regularly. Prescripti on for 70 mg of alendronat e 1 tablet every week for 3 months was sent to [facility] in [place], [place]. Instructio ns on its usage were given. side effects and how tro take were discussed Encouraged to continue alendronat e once a week. Osteoporos iscontinue alendronat e tolerating well This note has been generated by Sanna SCHNEIDER and edited by Marianela Irving, Quality Documentat ion Specialist . Prediabetes 348979405 R7 3.03 Health Concerns Section Related Observation LastModified by Organization Detai ls LastModified Time None Recorded Concern Status LastModified by Organization Details LastModified Time None Recorded Advance Directives Directive Y: spouse Payers Insurance Date Sequence Insurance Name Policy Number Policy Boyd Covered Member ID Boyd Member ID Guarantor Name 11/23/2024 2 JOE ( [facility]) Bernie Oh [id number] Bernie Oh 12/25/2010 2 [place] [employer] [id number] Tristan Oh [id number] Bernie Oh 11/15/2024 1 [place] [employer] Bernie Oh [id number] Bernie Oh 03/16/2024 3 [place] [place] Bernie Oh [id number] Bernie Oh Notes Date Note Type Note [...] She has a scheduled appointment with her keyboarding teacher on 12/18/2023. Her keyboarding teacher has prescribed a longer course of prednisone, [...] normal range.Mammogram was normal. Vicky Bentley MD [address] [place] [address], [phone], [facility] [place] 12/18/2023 20:35:59 4 text/html MMThe patient is [...] lose weight and has consulted with a keyboarding teacher. Her diet includes minimal consumption of bread [...] no trouble taking that. Vicky Bentley MD [address] [place] [address], [phone], [facility] [place] 04/09/2024 12:22:52 4 text/html Physical Exam/FemaleReported bypatient.PHAPatient [...] history of COVID-19 infection. Vicky Bentley MD [address] [place] [address], [phone], [facility] [place] 06/06/2024 19:43:27 4 text/html 07/14/24- Pt here [...] drinking diet Pepsi. KLEBER ALCANTAR DO [address] [place], [phone], [facility] 07/16/2024 08:15:23 5 text/html History of Present [...] and increased water intake. Vicky Bentley MD [address] [place] [address], [phone], [facility] 11/19/2024 19:30:40 OBGyn Episode No OBEpisode recorded.
--- NOTE | 2025-03-12 09:22 | MHC.OFFVIS ---
Vital Signs 03/12/25 09:24 Height 5 ft 4 in Weight 150 lb BMI 25.7 Handedness Left Intake Visit Reasons: FC-RT wrist Distal radial fx DOI: 03/04/25 Intake Note: Bernie is a 69 year old left hand dominant female who presents today for a Fracture Care visit. Patient reports that on 03/04/25 she tripped over a piece of wood in the yard landing on her right arm. She [place] [facility] [place] where she was placed in a Long Sugar tong Splint. Currently patient reports that she is having pain, she takes pain medication for her back which helps for her wrist. Denies numbness and tingling. They leave on Saturday for a Cruise Allergies No Known Allergies Allergy (Verified 03/12/25 09:27) HPI HPI FC-RT wrist Distal radial fx DOI: 03/04/25: Details: The patient is a 69-year-old left-hand dominant woman who is seen today with her . On 03/04/2025 she tripped and fell sustaining a right distal radius fracture. She was placed in a sugar-tong splint and referred to us for care. The patient reports that she and her are supposed to take off and a [place] Cruise on Saturday and will be gone for little over a week. [facility] Medical History (Updated 03/12/25 @ 10:09 by Marianne Hamilton MD) COPD (chronic obstructive pulmonary disease) Opioid dependence Chronic low back pain Pulmonary nodule Surgical History (Updated 03/12/25 @ 09:31 by Lauren Galarza CMA) History of tonsillectomy H/O: section History of cholecystectomy Social History Household Members: Spouse Housing: House Do you presently have visiting nurse or other home services: No Patient Tobacco Use Status: Former Tobacco user Tobacco use type: Cigarette Cigarette Packs Per Day: 1 Years Smoked: 30 service: No Current occupational status: retired Physical Exam Vital Signs: BMI result Body Mass Index 25.7 Const General: cooperative, healthy appearing and no acute distress Orientation/consciousness: oriented to person and oriented to place HEENT Head: Yes normocephalic and Yes atraumatic Eyes EOM: EOMs intact bilaterally Resp Effort & Inspection: normal respiratory effort and able to speak in complete sentences Cardio Jugular venous distension: no JVD Skin General skin exam: turgor normal Rashes: no rashes Neuro General: oriented to person and oriented to place Extrem Other: Evaluation of right Upper Extremity: She has some resolving ecchymosis and mild swelling in the right wrist and hand. She is mildly tender over the dorsal aspect of the distal radius No lacerations or evidence of open injury. The DRUJ appears stable. No tenderness about the elbow or with proximal forearm squeeze. Mild stiffness in the elbow after being in a sugar-tong splint but she can actively flex and extend With encouragement she can actively make a fist and extend all of her digits Radiographs: Three views of the right wrist were reviewed by me today and show a right metaphyseal distal radius fracture. She has some increased dorsal tilt on the lateral in his now at about 8 degrees. This factory alignment on the PA and oblique. Psych Appearance: grossly normal Affect: normal affect Attitude: cooperative Office Procedures AMB Fracture Care Details: Fracture care 98780 distal radius Fracture Billing Code: Fracture Billing Code Assessment & Plan Assessment & Plan (1) Distal radius fracture, right: Code(s): S52.501A - Unspecified fracture of the lower end of right radius, initial encounter for closed fracture Category: Medical Plan Assessment and plan: 1. Right distal radius fracture, metaphyseal minimally displaced Date of injury 03/04/2025 I educated the patient and her about this injury We discussed operative and non operative treatment options. She does have about 8 degrees of dorsal tilt on the lateral today. I talked to them about the fact that this could worsen. However, I do not think it is unreasonable to treat this non operatively. We did talk at length about the importance of handling nothing heavier than a pencil in her right hand for right now. We placed her in a short-arm cast that was gently molded. Again we emphasized activity modification. They are going to be going on a cruise, and her assures me that he will be handling all of the bags and anything that she needs. Follow up in 3 weeks with new radiographs out of plaster. Orders: Orders XR wrist RT min 3V Today M25.531 - Pain in right wrist Coding Level of Care Code New Pt Level 4 (86348) Diagnoses Distal radius fracture, right S52.501A CPT Codes Fracture Care - Fracture Billing Code: Fracture Billing Code ([id number])
[2025-03-12 09:24] VITALS: BMI 25.7
== END 2025-03-12 10:22 | disposition home or self-care (01) ==
LOC: HO.HOS 09:02
PROVIDERS: PCP Family Medicine; Visit Provider Orthopaedic Surgery
DX: S52.501A Unspecified fracture of the lower end of right radius, initial encounter for closed fracture (principal)
CPT/HCPCS: 25600; 99204

== ENCOUNTER → 2025-03-12 09:10 | Outpatient (BNV) | payer MEDICARE, OTHER, SELFPAY | PROVIDERS: Visit Provider Radiology Diagnostic Radiology | DX: S52.501K Unspecified fracture of the lower end of right radius, subsequent encounter for closed fracture with nonunion (principal) | CPT/HCPCS: 73110 ==

== ENCOUNTER 2025-03-31 08:50 | Outpatient (REF) | payer MEDICARE, OTHER, SELFPAY ==
--- NOTE | ~2025-03-31 | XR_ITS ---
EXAMINATION: XR WRIST 3 OR MORE VIEWS RIGHT HISTORY: M25.531 - Pain in right wrist COMPARISON: Comparison is made with the prior examination dated 03/12/2025. FINDINGS: Three views of the right wrist are submitted. Osseous mineralization is normal. Again seen is a fracture of the distal metaphysis. The fracture line remains visible. An ulnar styloid fracture is also noted. The joint spaces are preserved. The soft tissues are unremarkable. XR/XR wrist RT min 3V IMPRESSION: Fractures of the distal radius and ulnar styloid without significant change. Electronically signed by: Douglas Carson MD 03/31/2025 11:19 AM EDT
--- OUTSIDE RECORDS SUMMARY | 2025-03-31 09:09 | XMS_ITS | Encounter Summary ---
Author Organization [facility] Address [address] [place] [address] Phone Care Team Providers Care Denitrator Name Role Phone Vilma Bentley Primary Care Provider +1- [phone] Encounter Details Date Type Department Care Team (Late st Contact Info) Description 02/03/2019 Procedure Pass [facility] Endoscopy Admitting Dept Virtual Department [address] [place] [address] Social History Tobacco Use Types Packs/Day Years Used Date Smoking Tobacco: Former Smokeless Tobacco: Never Comments:quit 13 years ago Alcohol Use Standard Drinks/Week Comments Yes 0 (1 standard drink = 0.6 oz pur e alcohol) occassionally Comments Unknown Sex and Gender Information Value Date Recorded Sex Assigned at Not on file Legal Sex Female 9:56 PM EDT Gender Identity Not on file Sexual Orientation Not on file documented as of this encounter Plan of Treatment Not on file documented as of this encounter Visit Diagnoses Not on filedocumented in this encounter Care Teams Denitrator Relationship Specialty Start Date End Date Vilma Bentley PA [address] [place] [address] PCP - General Handle Bender 05/08/18 documented as of this encounter Additional Source Comments The information contained in this document represents components of the legal health record. It is not the complete legal health record.[facility]
== END 2025-03-31 08:51 | disposition home or self-care (01) ==
LOC: HO.HOSX 08:50
PROVIDERS: Visit Provider Orthopaedic Surgery
DX: S52.611A Displaced fracture of right ulna styloid process, initial encounter for closed fracture (principal); M25.531 Pain in right wrist; M79.89 Other specified soft tissue disorders; X58.XXXA Exposure to other specified factors, initial encounter
CPT/HCPCS: 73110; 99212

== ENCOUNTER 2025-03-31 10:59 | Outpatient (AMB) | payer MEDICARE, OTHER, SELFPAY ==
--- NOTE | 2025-03-31 11:23 | MHC.OFFVIS ---
Vital Signs 03/31/25 11:29 Height 5 ft 4 in Weight 150 lb BMI 25.7 Handedness Left Intake Visit Reasons: OV-RT wrist Distal radial fx DOI: 03/04/25-w/xray Intake Note: Bernie 69 yr old left hand dominant female presents today for her follow up visit for her Right distal radius fracture, DOI: 03/04/2025. At her last visit she was placed in a short arm cast and was advised to keep cast dry. Cast has been removed today to update xrays. Patient reports her right wrist feels stiff, sore and tender. Expresses she has swelling and stiffness in the digits of the right hand but no pain is occurring. She elevates when she is at home on pillows. She takes oxycodone 10 mg and reports she is still experiencing pain. Allergies No Known Allergies Allergy (Verified 03/31/25 11:27) HPI HPI OV-RT wrist Distal radial fx DOI: 03/04/25-w/xray: Details: Bernie is a 69 year old right hand dominant woman who returns for her right distal radius fracture, DOI: 03/04/25. She was placed in a short-arm cast on her last visit 03/12/2025. She is seen today with her and has no complaints. They went on their cruise, and had a good time.. [facility] Medical History COPD (chronic obstructive pulmonary disease) Opioid dependence Chronic low back pain Pulmonary nodule Surgical History History of tonsillectomy H/O: section History of cholecystectomy Social History Household Members: Spouse Housing: House Do you presently have visiting nurse or other home services: No Patient Tobacco Use Status: Former Tobacco user Tobacco use type: Cigarette Cigarette Packs Per Day: 1 Years Smoked: 30 service: No Current occupational status: retired Review of Systems Const All systems reviewed & are unremarkable except as noted in HPI and below Physical Exam Vital Signs: BMI result Body Mass Index 25.7 Const General: no acute distress and alert Orientation/consciousness: patient oriented x3 Neuro General: patient oriented x3 Extrem Other: Evaluation of Right Upper Extremity: The patient is alert, oriented, and in no acute distress Neuro: Median, Ulnar, Radial nerves motor and sensory intact Vascular: Cap refill brisk ROM: With encouragement she can actively make a weak fist and extend all of her digits Pronation: ~70 degrees Supination: ~10 degrees, with some ulnar wrist pain No tenderness about the elbow or with proximal forearm squeeze She has some resolving ecchymosis and mild swelling in the right wrist and hand. She is mildly tender over the dorsal aspect of the distal radius, but it appeared to be more apprehension than pain with examination No pain with attempted motion of the fracture site The DRUJ appears stable. Radiographs: 3 views of the right wrist were reviewed by me today and show a right metaphyseal distal radius fracture. She has some increased dorsal tilt on the lateral in his now at ~14 degrees. This factory alignment on the PA and oblique. Psych Appearance: grossly normal Affect: normal affect Attitude: cooperative Assessment & Plan Assessment & Plan (1) Distal radius fracture, right: Code(s): S52.501A - Unspecified fracture of the lower end of right radius, initial encounter for closed fracture Category: Medical Plan Assessment and plan: 1. Right distal radius fracture, metaphyseal minimally displaced DOI: 03/04/25 Managed non operatively in a cast I educated the patient and her about this injury She was fitted for a velcro wrist splint, to be worn like a cast for the next 3 weeks. In 2 weeks she can remove this when at home I discussed activity modifications, she is to lift nothing heavier than a cellphone for the next 3 weeks. She is also to avoid any heavy impact activities, lifting, or falling activities for the next 4 weeks She will perform gentle ROM exercises at home, out of her splint, including pronosupination. She is to avoid any flexion or extension She should do this 20x daily Follow up in 3 weeks, with X-rays, 3V R wrist, OOP. Consider early referral to OT hand therapy Scribed for Marianne Hamilton MD by Jeremias Monroy, medical radiation tech, on 03/31/25 at 11:40 AM, EST. Orders: Orders XR wrist RT min 3V Today M25.531 - Pain in right wrist Coding Level of Care Code Global (10719) Diagnoses Distal radius fracture, right S52.501A
[2025-03-31 11:29] VITALS: BMI 25.7
== END 2025-03-31 11:53 | disposition home or self-care (01) ==
LOC: HO.HOS 10:59
PROVIDERS: Visit Provider Orthopaedic Surgery
DX: S52.501A Unspecified fracture of the lower end of right radius, initial encounter for closed fracture (principal)
CPT/HCPCS: 99024

== ENCOUNTER → 2025-03-31 11:02 | Outpatient (BNV) | payer MEDICARE, OTHER, SELFPAY | PROVIDERS: Visit Provider Radiology Diagnostic Radiology | DX: M25.531 Pain in right wrist (principal) | CPT/HCPCS: 73110 ==

== ENCOUNTER 2025-04-02 10:30 | Outpatient (AMB) | payer MEDICARE, OTHER, SELFPAY ==
--- OUTSIDE RECORDS SUMMARY | 2025-04-02 10:40 | XMS_ITS | Encounter Summary ---
Author Organization [facility] Address [address] [place] [address] Phone Care Team Providers Care In Flight Refueling Operator Name Role Phone Vilma Bentley Primary Care Provider [phone]- [phone] Encounter Details Date Type Department Care Team (Late st Contact Info) Description 02/03/2019 Procedure Pass [facility] Endoscopy Admitting Dept Virtual Department [address] [place] [address] Social History Tobacco Use Types Packs/Day Years [...] on filedocumented in this encounter Care Teams In Flight Refueling Operator Relationship Specialty Start Date End Date Vilma Bentley PA [address] [place] [address] PCP - General Doorperson 05/08/18 documented as of this encounter Additional Source Comments The information contained in this document represents components of the legal health record. It is not the complete legal health record.[facility]
[2025-04-02 10:42] VITALS: BP 152/76; PULSE 103; O2SAT 90; BMI 26.0
--- NOTE | 2025-04-02 10:42 | MHC.OFFVIS ---
Vital Signs 04/02/25 10:42 Height 5 ft 4 in Weight 151 lb 8 oz BMI 26.0 BP 152/76 H Blood Pressure Location Lt brachial Position Sitting Pulse 103 H Pulse Source Pulse Oximeter Pulse Oximetry (%) 90 L Oxygen Delivery Method Room Air Intake Visit Reasons: COPD Allergies No Known Allergies Allergy (Verified 04/02/25 10:45) HPI HPI COPD: Details: Bernie is a pleasant 69 year old female, former smoker with 30 pack year history, quit 18 yrs ago, with underlying severe COPD on supplemental oxygen 3L with exertion, asthma and h/o acute respiratory failure with hypoxemia 11/2023 and 06/2024. She reports moderate control of respiratory symptoms using Breztri, DuoNeb, Acapella valve and Daliresp. She continues to be active walking 1-2 miles per day using 3L of supplemental oxygen with exertion and using 2L NOC. She has been checking oxygen saturation frequently, noting >92%. She does note if she is resting she will take off supplemental oxygen, monitoring her O2 which stays around 93-95% on room air. Over the last 1-2 weeks she reports worsening dyspnea likely related to increased humidity using nebulized therapy more frequently with suboptimal effect. She denies any visits to urgent care or hospitalizations related to respiratory distress since the last visit. Today she presents to review chest CT results. Prior chest CT from December 2024 revealed new 9 mm nodule of right upper lobe with recommendations for 3 month follow-up. [facility] Medical History COPD (chronic obstructive pulmonary disease) Opioid dependence Chronic low back pain Pulmonary nodule Surgical History History of tonsillectomy H/O: section History of cholecystectomy Social History Household Members: Spouse Housing: House Do you presently have visiting nurse or other home services: No Patient Tobacco Use Status: Former Tobacco user Tobacco use type: Cigarette Cigarette Packs Per Day: 1 Years Smoked: 30 service: No Current occupational status: retired Review of Systems Const Denies chills, Denies excessive sweating, Denies fever(s), Denies headache(s) and Denies night sweats Eyes Denies dry eyes, Denies irritation and Denies itchy eyes ENT Reports Normal hearing present, Denies headache(s), Denies nasal congestion, Denies nasal discharge, Denies post nasal drip and Denies sore throat Card Denies chest pain, Denies chest pain at rest, Denies chest pain with activity, Denies claudication, Denies leg edema, Reports dyspnea on exertion, Denies orthopnea and Denies paroxysmal nocturnal dyspnea Resp Denies change in phlegm color, Denies chest congestion, Denies cough, Denies hemoptysis, Denies pain on inspiration, Denies pain with cough, Reports dyspnea on exertion, Denies stridor and Reports wheezing Musc Denies myalgias Neuro Reports Normal hearing present and Denies headache(s) Endo Denies excessive sweating Miguel/Lymph Denies lymphadenopathy Aller/Immun Denies itchy eyes, Denies seasonal rhinorrhea and Reports wheezing Physical Exam Vital Signs: Last Vital Signs Pulse 103 H 04/02/25 10:42 BP 152/76 H 04/02/25 10:42 Pulse Ox 90 L 04/02/25 10:42 Oxygen Delivery Method Room Air 04/02/25 10:42 BMI result Body Mass Index 26.0 Const General: cooperative, no acute distress, well developed and alert Orientation/consciousness: patient oriented x3 Limitations: no limitations HEENT Head: Yes normal to inspection, Yes normocephalic and Yes atraumatic Ears: hearing grossly normal bilaterally and external ears normal Eyes General: appearance normal, both eyes and all related structures Eyelids: Yes eyelids normal Sclerae: sclerae normal EOM: EOMs intact bilaterally Neck Neck: Yes normal visual inspection and Yes no lymphadenopathy Lymphatic: no lymphadenopathy noted Chest Chest palpation & inspection: normal inspection of the chest Resp Effort & Inspection: normal respiratory effort, able to speak in complete sentences, no stridor, not tachypneic, no tripod positioning and no use of accessory muscles Auscultation: wheezes and diminished lung sounds Cardio Jugular venous distension: no JVD Rate: regular rate Rhythm: regular rhythm Skin Other: warm, dry General skin exam: no rashes or lesions noted Neuro General: patient oriented x3 Cranial nerves: Yes Normal hearing present Cognition (Neuro): normal cognition Gait exam (Neuro): Normal gait present Extrem General: Yes normal to inspection, Yes capillary refill normal, Yes no clubbing, cyanosis or edema and Yes no pedal edema Psych Appearance: grossly normal and well kempt Speech and movement: Normal speech and movement present and Clear speech present Affect: normal affect Attitude: cooperative Thought process: Normal thought process present Thought content: Normal thought content present Insight: Good insight present (Psych) Judgement: Good judgement present (Psych) Assessment & Plan Assessment & Plan (1) COPD (chronic obstructive pulmonary disease): Code(s): J44.9 - Chronic obstructive pulmonary disease, unspecified Category: Medical Qualifiers: COPD type: COPD with acute exacerbation Qualified Code(s): J44.1 - Chronic obstructive pulmonary disease with (acute) exacerbation (2) Pulmonary nodule: Code(s): R91.1 - Solitary pulmonary nodule Category: Medical (3) History of acute respiratory failure: Code(s): Z87.09 - Personal history of other diseases of the respiratory system Category: Medical Plan Encouraged to continue current regimen and continue to use supplemental oxygen with exertion 2-3L, maintaining O2 saturation >92% and 2.5L NOC. Will treat exacerbation with prednisone. She is aware to call if symptoms do not improve. We discussed potential sleep study as prior overnight oximetry revealed 5 oxygen desaturation events per hour however patient declined. Prior chest ct revealed new 9mm RUL nodule and repeat chest CT from 03/21/2025 revealed decreased right upper lobe nodule, now measuring 5 mm in size. Will repeat imaging in 6 months to assess stability. Patient on Daliresp, discussed repeating liver fx labs, however she states they were just performed by PCP. Will attempt to obtain. All questions were answered and patient is in agreement of plan. Will follow-up in 3 months or sooner if needed. Orders: Orders Liver Panel 04/02/25 Z01.818 - Encounter for other preprocedural examination Medications: New prednisone 40 mg (2 x 20 mg) PO DAILY 10 tabs 0RF Refilled flunisolide 1 spray intranasal BID 25 mL 0RF ipratropium-albuterol 0.5 mg-3 mg(2.5 mg base)/3 mL 3 mL inhalation QID PRN 180 mL 3RF Wheezing mgrsfijjxj-murnzupb-snmtdqfjeg 160-9-4.8 mcg/actuation (Breztri Aerosphere) 2 inhalations inhalation BID 3 ea 0RF roflumilast (Daliresp) 500 mcg PO DAILY 90 tabs 2RF Coding Level of Care Code Est Pt Level 4 (25759) Diagnoses Chronic obstructive pulmonary disease with acute exacerbation J44.1 COPD type: COPD with acute exacerbation Pulmonary nodule R91.1 History of acute respiratory failure Z87.09
== END 2025-04-02 11:24 | disposition home or self-care (01) ==
LOC: HO.HPSW 10:31
PROVIDERS: PCP Family Medicine; Visit Provider Nurse Practitioner Family
DX: J44.1 Chronic obstructive pulmonary disease with (acute) exacerbation (principal); R91.1 Solitary pulmonary nodule; Z87.09 Personal history of other diseases of the respiratory system
CPT/HCPCS: 99214

== ENCOUNTER → 2025-04-02 10:30 | Outpatient (BNVA) | payer MEDICARE, OTHER, SELFPAY | PROVIDERS: PCP Family Medicine; Visit Provider Nurse Practitioner Family | DX: J44.1 Chronic obstructive pulmonary disease with (acute) exacerbation (principal); R91.1 Solitary pulmonary nodule; Z87.09 Personal history of other diseases of the respiratory system; Z99.81 Dependence on supplemental oxygen | CPT/HCPCS: 99212 ==

== ENCOUNTER 2025-04-21 08:25 | Outpatient (REF) | payer MEDICARE, OTHER, SELFPAY ==
--- NOTE | ~2025-04-21 | XR_ITS ---
EXAMINATION: XR WRIST, RIGHT CLINICAL INFORMATION: M25.531 - Pain in right wrist COMPARISON: 03/31/2025, 03/12/2025, 03/05/2025. TECHNIQUE: PA, lateral, and oblique views of the right wrist. FINDINGS: Redemonstration of transverse fracture of the distal radial metaphysis, minimal dorsally angulated, without change. Fracture lines are sclerotic and there is periosteal new bone formation indicating continued healing. Millimeter styloid avulsion fracture is also present. Soft tissue swelling has improved. XR/XR wrist RT min 3V IMPRESSION: Fractures of the distal radius and ulnar styloid in stable alignment with evidence of healing. Electronically signed by: Darian John MD 04/21/2025 10:37 AM EDT
--- OUTSIDE RECORDS SUMMARY | 2025-04-22 09:15 | XMS_ITS | Encounter Summary ---
Author Organization [facility] Address [address] [place] [address] Phone Care Team Providers Care Resin Remover Name Role Phone Vilma Bentley Primary Care Provider [phone]- [phone] Encounter Details Date Type Department Care Team (Late st Contact Info) Description 02/03/2019 Procedure Pass [facility] Endoscopy Admitting Dept Virtual Department [address] [place] [address] Social History Tobacco Use Types Packs/Day Years [...] on filedocumented in this encounter Care Teams Resin Remover Relationship Specialty Start Date End Date Vilma Bentley PA [address] [place] [address] PCP - General Lining Inserter 05/08/18 documented as of this encounter Additional Source Comments The information contained in this document represents components of the legal health record. It is not the complete legal health record.[facility]
== END 2025-04-21 08:26 | disposition home or self-care (01) ==
LOC: HO.HOSX 08:25
PROVIDERS: Visit Provider Orthopaedic Surgery
DX: S52.501A Unspecified fracture of the lower end of right radius, initial encounter for closed fracture (principal); M25.531 Pain in right wrist; M79.89 Other specified soft tissue disorders; X58.XXXA Exposure to other specified factors, initial encounter
CPT/HCPCS: 73110; 99212

== ENCOUNTER 2025-04-21 10:17 | Outpatient (AMB) | payer MEDICARE, OTHER, SELFPAY ==
[2025-04-21 10:43] VITALS: BMI 26.4
--- NOTE | 2025-04-21 10:43 | MHC.OFFVIS ---
Vital Signs 04/21/25 10:43 Height 5 ft 4 in Weight 154 lb BMI 26.4 Intake Visit Reasons: OV-RT wrist Distal radial fx DOI: 03/04/25-w/xray Intake Note: Bernie 69 yr old left hand dominant female presents today for her follow up visit for her Right distal radius fracture, DOI: 03/04/2025. At her last visit, she was advise she is to lift nothing heavier than a cellphone for the next 3 weeks. She is also to avoid any heavy impact activities, lifting, or falling activities for the next 4 weeks. Currently states at time she has soreness, swelling and aches after prolong use of hand. She uses her brace for sleep only. Denies numbness or tingling. Allergies No Known Allergies Allergy (Verified 04/21/25 10:48) HPI HPI OV-RT wrist Distal radial fx DOI: 03/04/25-w/xray: Details: Bernie is a 69 year old right hand dominant woman who returns for her right distal radius fracture, DOI: 03/04/25. She is seen today with her . She says she is doing well. She has discontinued her splint and wears it only while sleeping. She an her are planning another cruise trip soon [facility] Medical History COPD (chronic obstructive pulmonary disease) Opioid dependence Chronic low back pain Pulmonary nodule Surgical History History of tonsillectomy H/O: section History of cholecystectomy Social History (Updated 04/21/25 @ 10:49 by JUHI Carrion) Household Members: Spouse Housing: House Do you presently have visiting nurse or other home services: No Patient Tobacco Use Status: Former Tobacco user Tobacco use type: Cigarette Cigarette Packs Per Day: 1 Years Smoked: 30 service: No Current occupational status: retired 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 Review of Systems Const All systems reviewed & are unremarkable except as noted in HPI and below Physical Exam Vital Signs: BMI result Body Mass Index 26.4 Const General: no acute distress and alert Orientation/consciousness: patient oriented x3 Neuro General: patient oriented x3 Extrem Other: Evaluation of Right Upper Extremity: The patient is alert, oriented, and in no acute distress Neuro: Median, Ulnar, Radial nerves motor and sensory intact Vascular: Cap refill brisk ROM: She can actively make a weak fist and extend all of her digits Full pronation Supination: ~65 degrees She has already got perhaps 40 degrees of wrist extension and about 30-40 degrees of wrist flexion. Fracture site completely non-tender Radiographs: 3 views of the right wrist were reviewed by me today and show a right metaphyseal distal radius fracture. She has some increased dorsal tilt on the lateral in his now at ~14 degrees. This factory alignment on the PA and oblique. Psych Appearance: grossly normal Affect: normal affect Attitude: cooperative Assessment & Plan Assessment & Plan (1) Distal radius fracture, right: Code(s): S52.501A - Unspecified fracture of the lower end of right radius, initial encounter for closed fracture Category: Medical Plan Assessment and plan: 1. Right distal radius fracture, metaphyseal minimally displaced DOI: 03/04/25 Managed non operatively in a cast I educated the patient and her about this injury She will discontinue her velcro wrist splint today I discussed activity modifications, she is to use her hand for lightweight activities and slowly increase as tolerated over the next 4 weeks. She is also to avoid any heavy impact activities, lifting, or falling activities for the next 2 weeks She will perform gentle ROM exercises at home, 20x daily I ordered OT hand therapy to work on ROM, strengthening, and normalizing function She will follow up prn. Scribed for Marianne Hamilton MD by Jeremias Monroy, medical staff services manager, on 04/21/25 at 11:05 AM, EST. Orders: Orders XR wrist RT min 3V Today M25.531 - Pain in right wrist OT Evaluation and Treatment Today S52.501A - Unspecified fracture of the lower end of right radius, initial encounter for closed fracture Coding Level of Care Code Global (94666) Diagnoses Distal radius fracture, right S52.501A
--- OUTSIDE RECORDS SUMMARY | 2025-04-21 11:30 | XMS_ITS | Encounter Summary ---
Author Organization [facility] Address [address] [place] [address] Phone Care Team Providers Care Wood Boatbuilder Name Role Phone Vilma Bentley Primary Care Provider [phone]- [phone] Encounter Details Date Type Department Care Team (Late st Contact Info) Description 02/03/2019 Procedure Pass [facility] Endoscopy Admitting Dept Virtual Department [address] [place] [address] Social History Tobacco Use Types Packs/Day Years [...] on filedocumented in this encounter Care Teams Wood Boatbuilder Relationship Specialty Start Date End Date Vilma Bentley PA [address] [place] [address] PCP - General General Assembler Installer 05/08/18 documented as of this encounter Additional Source Comments The information contained in this document represents components of the legal health record. It is not the complete legal health record.[facility]
== END 2025-04-21 11:49 | disposition home or self-care (01) ==
LOC: HO.HOS 10:18
PROVIDERS: Visit Provider Orthopaedic Surgery
DX: S52.501A Unspecified fracture of the lower end of right radius, initial encounter for closed fracture (principal)
CPT/HCPCS: 99024

== ENCOUNTER → 2025-04-21 10:26 | Outpatient (BNV) | payer MEDICARE, OTHER, SELFPAY | PROVIDERS: Visit Provider Radiology Diagnostic Radiology | DX: S52.591D Other fractures of lower end of right radius, subsequent encounter for closed fracture with routine healing (principal) | CPT/HCPCS: 73110 ==

== ENCOUNTER 2025-05-17 10:30 | Outpatient (RCR) | payer MEDICARE, OTHER, SELFPAY ==
--- NOTE | 2025-04-29 13:59 | MHC.OT.EP ---
[facility] Office [address] [phone] F: [phone] F: [phone] Occupational Therapy Plan of Care Patient Name: Bernie Oh Date of Evaluation: 04/29/25 Diagnosis: R DRF Pain Location: Right wrist, ache Ulnar wrist moreso than radius, tender over TFCC Pain Score: 2 Pain Scale Used: Numeric (0 - 10) Aggravating Factors: Movement, force Alleviating Factors: Pain meds at baseline (chronic back pain) Lidocaine, fastum ketoprofen (anti inflammatory gel) Assessment: 69 yo female tripped and fell onto her right hand, resulting in distal radius fracture. she was seen in ED and placed in sugar tong splint, then discussed options with Dr Hamilton and placed in short arm cast for conservative treatment. Cast has since been removed and prfab orthosis discontinued. She is referred to OT for continued range, strengthening and normalizing function. On assessment today, she has minimal pain and swelling, but specifically in ulnar wrist. She reports tenderness in ulnar wrist and discomfort w/ rotation, but otherwise pro/sup measuring 75/65 and ext/flex at 60/38. She has decreased commercial mortgage broker strength at 20lb (compared to left GG 65lb) and discomfort in ulnar wrist w/ gripping. She reports minimal functional loss but has been limiting forceful use. We will continue course of OT to progress range, strength and function. Frequency and Duration: The patient will be seen 2x/wk for 4 weeks Short Term Goals: Ind w/ HEP Ind w/ edema management Wrist flex 45 degrees Wrist sup 70 degrees Intermediate Goals: Ind w/ progression of strengthening Gross grasp >40lb Wrist flex 60 degrees Wrist sup 70 degrees Pt to report ease w/ moderate daily activities QuickDASH score <20 pts Treatment Plan: Therapeutic Exercise Therapeutic Activity Home Exercise Program Patient Education Edema Control ADL Training Ultrasound Iontophoresis Paraffin Fluidotherapy MHP Cold Packs Joint Mobilization Soft Tissue Mobilization Kinesiotaping Electronically Signed By: Marissa Bardales OTR/L CHT Please Sign and return to therapist. Thank you once again for your referral.
--- NOTE | 2025-05-24 08:21 | MHC.OT.DC ---
[facility] Office [address] [phone] F: [phone] F: [phone] Occupational Therapy Discharge Note Patient Name: Bernie Oh Provider: Dr Marianne Hamilton Diagnosis: R DRF Date of Evaluation: 04/29/25 Date of Discharge: 05/24/25 Treatments to Date: 3 Discharge Status: Improved Function Independent with HEP Patient Elected to Stop Discharge Summary: Bernie was referred to OT w/ right distal radius fracture. She has attended three visits and reports she is doing well and is self discharging at this time. On last visit, she cont'd to have mild pain and edema in ulnar wrist and has been avoiding heavy use, lifting or weightbearing. She has been educated on stretching and initiated strengthening and had been progressing well. We will discharge today per pt request, I anticipate she will continue to do well w/ HEP. GG R 23lb L 55lb Wrist ROM ext/flex 70/50 pro/sup 85/75 Electronically Signed By: Marissa Bardales OTR/L DAMIANT Reviewed/agree with student documentation: Therapist: Please Sign and return to therapist, thank you for your referral.
== END 2025-05-24 08:22 | disposition home or self-care (01) ==
LOC: HO.OT 10:30
PROVIDERS: PCP Family Medicine; Visit Provider Orthopaedic Surgery
DX: S52.501D Unspecified fracture of the lower end of right radius, subsequent encounter for closed fracture with routine healing (principal)
CPT/HCPCS: 97110; 97165

== ENCOUNTER 2025-06-08 10:30 | Outpatient (AMB) | payer MEDICARE, OTHER, SELFPAY ==
--- NOTE | 2025-06-08 10:31 | A.OFFVIS_ITS ---
Vital Signs 06/08/25 10:32 Height 5 ft 4 in Weight 155 lb 4 oz BMI 26.6 BP 140/76 H Blood Pressure Location Rt brachial Position Sitting Pulse 108 H Pulse Source Pulse Oximeter Pulse Oximetry (%) 94 Oxygen Delivery Method Nasal Cannula Oxygen Flow Rate 4 Intake Visit Reasons: COPD Allergies No Known Allergies Allergy (Verified 06/08/25 10:35) HPI HPI COPD: Details: Bernie is a pleasant 69 year old female, former 30 pack year smoker, quit 18 yrs ago, with underlying severe COPD on supplemental oxygen 3L with exertion, asthma and h/o acute respiratory failure with hypoxemia 11/2023 and 06/2024. She reports moderate control of respiratory symptoms using Breztri, DuoNeb, Acapella valve and Daliresp. She continues to be active walking 1-2 miles per day using 3L of supplemental oxygen with exertion and using 2L NOC. She has been checking oxygen saturation frequently, noting >92% at rest on room air and with 3L upon exertion. At the last visit, she was given prednisone for an exacerbation with resolution of symptoms and notes over the last two weeks worsening respiratory symptoms including dyspnea, productive cough with yellow sputum and wheezing. Denies fevers or chills. She denies any visits to urgent care or hospitalizations related to respiratory distress since the last visit. Prior chest CT from 2024 revealed decreased nodule of right upper lobe to 5 mm with recommendations for 6 month follow-up, which has been ordered. 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 Review of Systems Const Denies chills, Denies excessive sweating, Denies fever(s), Denies headache(s) and Denies night sweats Eyes Denies dry eyes, Denies irritation and Denies itchy eyes ENT Reports Normal hearing present, Denies headache(s), Denies nasal congestion, Denies nasal discharge, Denies post nasal drip and Denies sore throat Card Denies chest pain, Denies chest pain at rest, Denies chest pain with activity, Denies claudication, Denies leg edema, Reports dyspnea on exertion, Denies orthopnea and Denies paroxysmal nocturnal dyspnea Resp Reports change in phlegm color, Reports cough, Denies hemoptysis, Denies pain on inspiration, Denies pain with cough, Reports dyspnea on exertion, Denies stridor and Reports wheezing Musc Denies myalgias Neuro Reports Normal hearing present and Denies headache(s) Endo Denies excessive sweating Miguel/Lymph Denies lymphadenopathy Aller/Immun Denies itchy eyes, Denies seasonal rhinorrhea and Reports wheezing Physical Exam Vital Signs: Last Vital Signs Pulse 108 H 06/08/25 10:32 BP 140/76 H 06/08/25 10:32 Pulse Ox 94 06/08/25 10:32 Oxygen Delivery Method Nasal Cannula 06/08/25 10:32 Oxygen Flow Rate 4 06/08/25 10:32 BMI result Body Mass Index 26.6 Const General: cooperative, no acute distress, well developed and alert Orientation/consciousness: patient oriented x3 Limitations: no limitations HEENT Head: Yes normal to inspection, Yes normocephalic and Yes atraumatic Ears: hearing grossly normal bilaterally and external ears normal Eyes General: appearance normal, both eyes and all related structures Eyelids: Yes eyelids normal Sclerae: sclerae normal EOM: EOMs intact bilaterally Neck Neck: Yes normal visual inspection and Yes no lymphadenopathy Lymphatic: no lymphadenopathy noted Chest Chest palpation & inspection: normal inspection of the chest Resp Effort & Inspection: normal respiratory effort, able to speak in complete sente nces, no stridor, not tachypneic, no tripod positioning and no use of accessory muscles Auscultation: wheezes and diminished lung sounds Cardio Jugular venous distension: no JVD Rate: regular rate Rhythm: regular rhythm Skin Other: warm, dry General skin exam: no rashes or lesions noted Neuro General: patient oriented x3 Cranial nerves: Yes Normal hearing present Cognition (Neuro): normal cognition Gait exam (Neuro): Normal gait present Extrem General: Yes normal to inspection, Yes capillary refill normal, Yes no clubbing, cyanosis or edema and Yes no pedal edema Psych Appearance: grossly normal and well kempt Speech and movement: Normal speech and movement present and Clear speech present Affect: normal affect Attitude: cooperative Thought process: Normal thought process present Thought content: Normal thought content present Insight: Good insight present (Psych) Judgement: Good judgement present (Psych) Assessment & Plan Assessment & Plan (1) COPD (chronic obstructive pulmonary disease): Code(s): J44.9 - Chronic obstructive pulmonary disease, unspecified Category: Medical Qualifiers: COPD type: COPD with acute exacerbation Qualified Code(s): J44.1 - Chronic obstructive pulmonary disease with (acute) exacerbation (2) Pulmonary nodule: Code(s): R91.1 - Solitary pulmonary nodule Category: Medical (3) History of acute respiratory failure: Code(s): Z87.09 - Personal history of other diseases of the respiratory system Category: Medical Plan Will treat exacerbation with doxycycline and prednisone. She is aware to call if symptoms do not improve or seek emergent care if symptoms worsen. Encouraged to continue current regimen of supplemental oxygen with exertion 2-3L, maintaining O2 saturation >92% and 2.5L NOC as well as Breztri, Daliresp, DuoNeb/Albuterol MDI PRN. We again discussed potential sleep study as prior overnight oximetry revealed 5 oxygen desaturation events per hour however patient declined. Prior chest CT from 03/21/2025 revealed decreased right upper lobe nodule, now measuring 5 mm in size. Will repeat imaging in 6 months to assess stability, order placed. Patient on Daliresp, liver fx WNL. All questions were answered and patient is in agreement of plan. Will follow-up in 3 months or sooner if needed. Medications: Refilled ipratropium-albuterol 0.5 mg-3 mg(2.5 mg base)/3 mL 3 mL inhalation QID PRN 180 mL 3RF Wheezing doxycycline hyclate 100 mg PO BID 14 caps 0RF prednisone see taper instructions; 40 mg Daily x3 days, 30 mg daily x3 days, 20 mg daily x3 days, 10 mg daily x3 days 10 mg PO DIRECTED 30 tabs 0RF Coding Level of Care Code Est Pt Level 4 (91722) Diagnoses Chronic obstructive pulmonary disease with acute exacerbation J44.1 COPD type: COPD with acute exacerbation Pulmonary nodule R91.1 History of acute respiratory failure Z87.09
[2025-06-08 10:32] VITALS: BP 140/76; PULSE 108; O2SAT 94; BMI 26.6
--- OUTSIDE RECORDS SUMMARY | 2025-06-08 12:45 | XMS_ITS | Encounter Summary ---
Author Organization [facility] Address [address] [place] [address] [place] [address] Phone Care Team Providers Care Mill Platform Supervisor Name Role Phone Vilma Bentley Primary Care Provider [phone]- [phone] Encounter Details Date Type Department Care Team (Late Contact Info) Description 02/03/2019 Procedure Pass [facility] Endoscopy Admitting Dept Virtual Department [address] [place] [phone] Social History Tobacco Use Types Packs/Day Years [...] as of this encounter Plan of Treatment Upcoming Encounters Date Type Department Care Team (Late Contact Info) Description 08/19/2025 11:30 AM EST Office Visit [facility] [address] [place] [address] Unknown, Unknown, Alethea Najera, LEATHER COLORER [address] [phone] [email or web address] documented as of this encounter Visit Diagnoses Not on filedocumented in this encounter Care Teams Mill Platform Supervisor Relationship Specialty Start Date End Date Vilma Bentley PA [address] [place] [id number] PCP - General Frame Opener 05/08/18 documented as of this encounter Additional Source Comments The information contained in this document represents components of the legal health record. It is not the complete legal health record.[facility]
--- OUTSIDE RECORDS SUMMARY | 2025-06-08 12:45 | XMS_ITS | Clinical Summary ---
Author Organization [facility] Address [address] [address] Phone Care Team Providers Care Nicker And Breaker Name Role Phone Michi Stout Primary Care Provider [phone]- [phone] Allergies Active Allergy Reactions Criticality Noted Date Comments Bee Pollen Swelling 02/02/2019 Medications oxyCODONE-acetami nophen (PERCOCET) 5-325 mg per tablet Take 1 tablet by mouth every 4 (four) hours as needed for pain (specific location in comments). Active morphine (MSIR) 15 MG tablet Take 15 mg by mouth 2 (two) times a day. Active lisinopril (PRINIVIL,ZESTRIL ) 2.5 MG tablet Take 2.5 mg by mouth daily. Active omeprazole (PRILOSEC) 20 MG capsule Take 20 mg by mouth daily. Active ibuprofen (ADVIL,MOTRIN) 800 MG tablet Take 800 mg by mouth every 6 (six) hours as needed for pain (specific location in comments). Active therapeutic multivitamin tablet Take 1 tablet by mouth daily. Active albuterol 90 mcg/actuation inhaler Inhale 2 puffs into the lungs every 6 (six) hours as needed for wheezing. Active tiotropium (SPIRIVA HANDIHALER) 18 mcg inhalation capsule Inhale 18 mcg into the lungs daily. Active Social History Tobacco Use Types Packs/Day Years Used Date Smoking Tobacco: Former Smokeless Tobacco: Never Comments:quit 13 years ago Alcohol Use Standard Drinks/Week Comments Yes 0 (1 standard drink = 0.6 oz pur e alcohol) occassionally Education Answer Date Recorded Are you interested in more education? Not on anni e 12/28/2022 Are you concerned about learning? Not on file 12/28/2022 No 12/28/2022 No 12/28/2022 Digital Access Answer Date Recorded No 01/26/2023 No 01/26/2023 No 01/26/2023 Reliable internet access at home? Not on file 01/26/2023 Device with a working camera? Not on file Comments Unknown Sex and Gender Information Value Date Recorded Sex Assigned at Not on file Legal Sex Female 9:56 PM EDT Gender Identity Not on file Sexual Orientation Not on file Last Filed Vital Signs Vital Sign Reading Time Taken Comments Blood Pressure 155/71 02/03/2019 9:38 AM EDT Pulse 89 02/03/2019 8:44 AM EDT Temperature 36 C (96.8 F) 02/03/2019 9:23 AM EDT Respiratory Rate 12 02/03/2019 9:38 AM EDT Oxygen Saturation 94% 02/03/2019 9:38 AM EDT Inhaled Oxygen Concentration - - Weight 58.6 kg (129 lb 3.2 oz) 02/03/2019 8:44 A M EDT Height 160 cm (5' 3 ) 02/03/2019 8:44 AM EDT Body Mass Index 22.89 02/03/2019 8:44 AM EDT Plan of Treatment Upcoming Encounters Date Type Department Care Team (Late st Contact Info) Description 08/19/2025 11:30 AM EST Office Visit [facility] [address] [place] [address] Unknown, Unknown, Alethea Najera, AUTOMOTIVE DRIVABILITY TECHNICIAN [address] [place] [phone] [email or web address] Health Maintenance Due Date Last Done Comments CREATININE LEVEL 1954 LIPID PANEL 1954 POTASSIUM LEVEL 1954 DEPRESSION SCREENING 1966 SMOKING Hx and SMOKELESS TOBACCO SCREENING 1967 HEPATITIS C SCREENING 1972 MAMMOGRAM 1994 COLOGUARD 1999 FIT TEST 1999 FOBT 1999 SIGMOIDOSCOPY 1999 VIRTUAL COLONOSCOPY 1999 ZOSTER VACCINES (1 of 2) 2004 PNEUMOCOCCAL VACCINES (50+ years) (2 of 2 - PCV) 06/29/2012 06/29/2011 Adult Td,Tdap Booster 02/07/2015 02/07/2005 OSTEOPOROSIS SCREENING INITIAL (ONE-TIME) 2019 INFLUENZA VACCINE (#1) 2025 , 05/26/2019, 05/28/2018, Additional history exists COVID-19 VACCINE (3 - season) 2025 11/26/2020, 10/28/2020 COLONOSCOPY 02/03/2029 02/03/2019 COLORECTAL CANCER SCREENING 02/03/2029 RSV VACCINE (1 - 1-dose 75+ series) 2029 HEPATITIS A VACCINES Aged Out No long er eligible based on patient's age to complete this topic HIB VACCINES Aged Out No longer eligi ble based on patient's age to complete this topic MENINGOCOCCAL VACCINES (ACWY) Aged Out No longer eligible based on patient's age to complete this topic MENINGOCOCCAL VACCINES (B) Aged Out N o longer eligible based on patient's age to complete this topic Medical Devices Not on file Procedures Procedure Name Priority Date/Time Associated Diagnosis Comments ENDOSCOPY, COLON 02/03/2019 8:50 AM EDT from Last 3 Months or Most Recently Relevant to Health Maintenance Results * ENDOSCOPY, COLON (02/03/2019 8:50 AM EDT) Narrative Transcriptions Hamilton Suero MD - 02/03/2019 8:50 AM EDT Patient Name: Bernie Rivera MD:: HAMILTON SUERO MD Procedure Date: 02/03/2019 8:50 AM Date of : 1955 Age: 63 Admit Type: Outpatient Gender: Female Room: [place] [address] Referring MD: MICHI STOUT MD Exam Type: Colonoscopy Indications: Positive fecal immunochemical test, Family history of colon cancer in a first-degree relative Medications: Monitored Anesthesia Care Procedure: Informed consent was obtained from the patient after discussion of the indications, limitations,alternatives, benefits, and risks of the procedure. Risksspecifically discussed include but are not limited to medication reactions, missed lesions, bleeding, perforation, orthe need for emergent surgery. Throughout the procedure, the patient's blood pressure, pulse, end-tidal CO2, and oxygen saturations were monitored continuously. The Olympus adult variable colonoscope [id number] #1 was introduced through the anus and advanced to theterminal ileum. The colonoscopy was performed withoutdifficulty. The patient tolerated the procedure well. The qualityof the bowel preparation was good. Complications: No immediate complications. Estimated blood loss:None. Findings: The perianal and digital rectal examinations werenormal. The rectum, recto-sigmoid colon, descending colon,splenic flexure, transverse colon, hepatic flexure, ascending colon, cecum, appendiceal orifice, ileocecal valve,ileum, rectum (on retroflexion) and ascending colon (on retroflexion) appeared normal. Impression: - The rectum, recto-sigmoid colon, descending colon, splenic flexure, transverse colon, hepatic flexure, ascending colon, cecum, appendiceal orifice, ileocecal valve and terminal ileum are normal. - No specimens collected. Recommendation: - Discharge patient to home. - Resume previous diet. - Continue present medications. - Repeat colonoscopy in 3 years for surveillance. HAMILTON SUERO MD 02/03/2019 9:20:16 AM This report has been signed electronically. Number of Addenda: 0 Note Initiated On: 02/03/2019 8:50 AM Procedure Code(s): --- Professional --- 76737, Colonoscopy, flexible; diagnostic, including collection of specimen(s) by brushing or washing, when performed (separateprocedure) --- Technical --- 88396, Colonoscopy, flexible; diagnostic, including collection of specimen(s) by brushing or washing, when performed (separateprocedure) Diagnosis Code(s): --- Professional --- R19.5, Other fecal abnormalities Z80.0, Family history of malignant neoplasm of digestive organs --- Technical --- R19.5, Other fecal abnormalities Z80.0, Family history of malignant neoplasm of digestive organs CPT copyright 2016 [employer]. All rights reserved. The codes documented in this report are preliminary and upon customer support manager reviewmay be revised to meet current compliance requirements. [address] [place] [address] Michi VILLALOBOS GI PROCEDURE ORDERABLES Fi nal Result from Last 3 Months or Most Recently Relevant to Health Maintenance Insurance [facility] [place] [address] MEDICARE PART A & B [address] [place], [place] [id number] [address] [address] PART A [address] [place] [id number] [address] MEDICARE PART A & B [facility] [place] [address] MEDICARE PART A & [place] [facility] [place] [address] MEDICARE PART A & [place] [address] [place] [address] MEDICARE PART A & [place] [address] MEDICARE PART A & [place] [address] [place] [address] MEDICARE PART A [place] [address] MEDICARE PART A & B Care Teams Nicker And Breaker Relationship Specialty Start Date End Date Michi Stout PA [address] [place] [phone] PCP - General Voice Engineer 05/08/18 Additional Source Comments The information contained in this document represents components of the legal health record. It is not the complete legal health record.[facility]
--- OUTSIDE RECORDS SUMMARY | 2025-06-08 12:46 | XMS_ITS | Encounter Summary ---
Author Organization [facility] Address [address] [place] [address] Phone Care Team Providers Care Director Of Income Tax Name Role Phone Vilma Bentley Primary Care Provider [phone]- [phone] Encounter Details Date Type Department Care Team (Late st Contact Info) Description 10/07/2018 Procedure Pass [facility] Endoscopy Admitting Dept Virtual Department [address] [place] [address] Social History Tobacco Use Types Packs/Day Years Used Date Smoking Tobacco: Never Assessed Comments Unknown Sex and Gender Information Value Date Recorded Sex Assigned at Not on file Legal Sex Female 9:56 PM EDT Gender Identity Not on file Sexual Orientation Not on file documented as of this encounter Plan of Treatment Upcoming Encounters Date Type Department Care Team (Late st Contact Info) Description 08/19/2025 11:30 AM EST Office Visit [facility] [address] [place] [address] Unknown, Unknown, Alethea Najera, ZIGZAG APPLIQUER [address] [address] [email or web address] documented as of this encounter Visit Diagnoses Not on filedocumented in this encounter Care Teams Director Of Income Tax Relationship Specialty Start Date End Date Vilma Bentley PA [address] [place] [id number] PCP - General Television News Producer 05/08/18 documented as of this encounter Additional Source Comments The information contained in this document represents components of the legal health record. It is not the complete legal health record.[facility]
== END 2025-06-08 10:59 | disposition home or self-care (01) ==
LOC: HO.HPSW 10:30
PROVIDERS: PCP Family Medicine; Visit Provider Nurse Practitioner Family
DX: J44.1 Chronic obstructive pulmonary disease with (acute) exacerbation (principal); R91.1 Solitary pulmonary nodule; Z87.09 Personal history of other diseases of the respiratory system
CPT/HCPCS: 99214

== ENCOUNTER → 2025-06-08 10:30 | Outpatient (BNVA) | payer MEDICARE, OTHER, SELFPAY | PROVIDERS: PCP Family Medicine; Visit Provider Nurse Practitioner Family | DX: J44.1 Chronic obstructive pulmonary disease with (acute) exacerbation (principal); R91.1 Solitary pulmonary nodule; Z87.891 Personal history of nicotine dependence; Z87.09 Personal history of other diseases of the respiratory system; Z99.81 Dependence on supplemental oxygen | CPT/HCPCS: 99212 ==

== ENCOUNTER 2025-06-27 06:12 | Inpatient (IN) | payer MEDICARE, OTHER, SELFPAY ==
[2025-06-27] VITALS (15 sets, daily range): BP systolic 120–160; BP diastolic 64–83; PULSE 89–116; RESP 15–24; TEMP 36.2–37.7; O2SAT 91–106; BMI 27.2; BMI 25.8
--- NOTE | 2025-06-27 | ECG_ITS ---
Test Reason : tachycardia Blood Pressure : */* mmHG Vent. Rate : 100 BPM Atrial Rate : 100 BPM P-R Int : 114 ms QRS Dur : 102 ms QT Int : 366 ms P-R-T Axes : 73 61 78 degrees QTcB Int : 472 ms Normal sinus rhythm Normal ECG When compared with ECG of 27-Jun-2025 06:23, No significant change was found Referred By: Meghan Virk Electronically Signed By: ARTEMIO RODRIGES
--- NOTE | ~2025-06-27 | XR_ITS ---
CLINICAL HISTORY: Shortness of breath, cough, rule out pneumonia Single view chest Comparison: CT/SR - CT CHEST WO IV CON - 03/08/25 07:31 EDT CR/OT/GA/SR - XR CHEST 1V - 06/29/24 08:02 EDT Findings: Basilar atelectasis versus infiltrate on the left. Mild peribronchial wall thickening. Cardiomediastinal silhouette is normal. No mediastinal shift or tracheal deviation. Osseous structures intact. Impression: 1. Mild central bronchial wall thickening. 2. Left basilar atelectasis versus infiltrate. This document has been electronically signed by: Mingo Dutton MD on 06/27/2025 09:58:52
--- NOTE | ~2025-06-27 | XR_ITS ---
CLINICAL HISTORY: hypoxia, acute 1 view chest x-ray Comparison: CR - XR CHEST 1V - 06/27/25 07:23 EDT Findings: Bibasilar subsegmental atelectatic changes. No focal consolidation, pleural effusion or pneumothorax. Upper lobe predominant severe emphysematous changes. Normal size heart. No acute fracture. IMPRESSION: 1. Upper lobe predominant severe emphysematous changes. 2. Bibasilar subsegmental atelectatic changes. This document has been electronically signed by: Marissa Villasenor MD on 06/27/2025 22:51:08
--- NOTE | 2025-06-27 06:33 | ED_ITS ---
HPI - SOB/Dyspnea General Chief Complaint: Dyspnea Stated Complaint: Difficulty Breathing hx COPD Time Seen by Provider: 06/27/25 06:23 Source: patient Mode of arrival: EMS Limitations: no limitations History of Present Illness ED Provider: Dr. Edward Palencia HPI Narrative: 70-year-old female former smoker with 30 pack year history quit 18 years ago, history of underlying COPD, asthma, history of opioid dependence, chronic lower back pain who presents emergency department for evaluation of 3 days of shortness of breath and productive cough. Patient states that yesterday her symptoms got worse. She usually uses her nebulizer 2 times a day and yesterday she used it 5-6 times with no relief of her shortness of breath. Patient normally wears 3 L of oxygen at night and with exertion. She states that her last 2-3 days she has had to wear 3-4 L of oxygen via nasal cannula more frequently due to her shortness of breath. This morning she had increased shortness of breath. She used her albuterol nebulizer without any relief therefore she called an ambulance. She was given Solu-Medrol 125 mg IV and a DuoNeb nebulizer in route. She had subjective fever and chills. She denied chest pain. She states she feels short of breath at worse and short of breath with exertion.. She denied nausea, vomiting, diarrhea, abdominal pain. Related Data Home Medications ?Medication ?Instructions ?Recorded ?Confirmed hydrochlorothiazide 12.5 mg tablet 12.5 mg PO DAILY 12/25/24 morphine 15 mg tablet,extended 15 mg PO BID 05/21/22 0 12/25/24 release oxycodone 10 mg tablet 10 mg PO QID PRN Pain, Moder ate 05/21/22 12/25/24 albuterol sulfate 90 mcg/actuation 2 puff inhalation Q 4H PRN 11/11/23 12/25/24 aerosol inhaler shortness of breath or wheez ing alendronate 70 mg tablet 70 mg PO MO 11/11/23 5 amlodipine 10 mg tablet 10 mg PO DAILY 11/11/2312/02 docusate sodium 100 mg capsule 100 mg PO DAILY 4 12/25/24 ibuprofen 800 mg tablet 800 mg PO TID PRN Pain 11/1012/25/24 multivitamin 1 tab PO DAILY 11/11/2312/02 naloxone 0.4 mg/mL injection 0.4 mg subcut Q3M PRN ove rdose 11/11/23 12/25/24 solution Previous Rx's ?Medication ?Instructions ?Recorded flunisolide 25 mcg (0.025 %) nasal 1 spray intranasal BID #25 mL 04/02/25 spray roflumilast 500 mcg tablet 500 mcg PO DAILY #90 tabs 0 04/02/25 (Daliresp) budesonide 160 mcg-glycopyr 9 2 inh inhalation BID #3 ea 06/04/25 mcg-formot 4.8 mcg/actuation HFA inhaler (Breztri [email or web address]) doxycycline hyclate 100 mg capsule 100 mg PO BID #14 c aps 06/08/25 ipratropium 0.5 mg-albuterol 3 mg 3 ml inhalation QID PRN Wheezing 06/08/25 (2.5 mg base)/3 mL nebulization #180 mL soln prednisone 10 mg tablet 10 mg PO DIRECTED #30 tab s 06/08/25 Allergies Allergy/AdvReac Type Severity Reaction Status Date / Time No Known Allergies Allergy Verified 06/27/25 06:35 Review of Systems 2 Review of Systems: Yes all other systems are reviewed and are negative [facility] Past Medical History [facility] Narrative: Social history: The patient is a former tobacco user with a 30 pack-year history smoking. She drinks 1-2 ROM with water drinks 2 to 3 times a week. She denies drug use. Medical History COPD (chronic obstructive pulmonary disease) Opioid dependence Chronic low back pain Pulmonary nodule Surgical History History of tonsillectomy H/O: section History of cholecystectomy Social History Social History Household Members: Spouse Housing: House Do you presently have visiting nurse or other home services: No Alcohol intake: current Alcohol intake frequency: a few times a month Patient Tobacco Use Status: Former Tobacco user Tobacco use type: Cigarette Cigarette Packs Per Day: 1 Years Smoked: 30 Smoked in Last 30 Days: No Use of substances other than those prescribed or required for medical reasons: No Advance Directives: No Advance Directives Information Provided: Yes Do you have a plan to hurt others: No Plan service: No Current occupational status: retired 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 Exam: General: Awake, alert in no distress, appears dyspneic Head: Normocephalic, atraumatic EENT: PERRL, sclera and conjunctiva are normal, mouth with no erythema or exudates Neck: Supple, no adenopathy Lung: breath sounds symmetric, diffuse wheezing with no rales or rhonchi Chest: symmetric movement, nontender Heart: regular rate and rhythm, normal S1, S2 no murmurs or rubs Abdomen: soft, non-tender, nondistended, normal bowel sounds Back: no vertebral tenderness, no CVAT Extremities: no deformities, moves all extremities symmetrically, no edema Neuro: Awake, alert, oriented, normal speech, cranial nerves 2-12 intact, moves all extremities symmetrically Psych: Pleasant, cooperative Medications Administered Discontinued Medications Generic Name Dose Route Start Last Admin Trade Name Freq PRN Reason Stop Dose Admin Albuterol Sulfate 7.5 mg/ 10 mg 06/27/25 06:45 06/27/25 06:49 Albuterol Sulfate 2.5 mg INHALE 06/27/25 06:46 10 mg ONCE ONE Administration Albuterol Sulfate 5 mg/ 0 mg 06/27/25 08:04 06/27/25 08:10 Albuterol/Ipratropium 3 ml INHALE 06/27/25 08:05 7.5 each ONCE ONE Administration Oseltamivir Phosphate 75 mg 06/27/25 08:13 06/27/25 09:00 Oseltamivir Phosphate 75 Mg Capsule PO 06/27/25 08:14 75 mg ONCE ONE Administration Medical Decision Making Medical Decision Making [facility] Narrative: 70-year-old female former smoker with 30 pack year history quit 18 years ago, history of underlying COPD, asthma, history of opioid dependence, chronic lower back pain who presents emergency department for evaluation of 3 days of shortness of breath and productive cough. Patient states that yesterday her symptoms got worse. She usually uses her nebulizer 2 times a day and yesterday she used it 5-6 times with no relief of her shortness of breath. Patient normally wears 3 L of oxygen at night and with exertion. She states that her last 2-3 days she has had to wear 3-4 L of oxygen via nasal cannula more frequently due to her shortness of breath. This morning she had increased shortness of breath. She used her albuterol nebulizer without any relief therefore she called an ambulance. She was given Solu-Medrol 125 mg IV and a DuoNeb nebulizer in route. She had subjective fever and chills. She denied chest pain. She states she feels short of breath at worse and short of breath with exertion.. She denied nausea, vomiting, diarrhea, abdominal pain. Vital signs revealed an elevated heart rate and O2 saturation of 93% on FiO2 of 5 L which is a higher requirement when she usually uses. Patient appeared dyspneic. Lung exam revealed diffuse wheezing with no rhonchi. Differential diagnosis: ?Includes but is not limited to pneumonia, COPD exacerbation, viral syndrome, COVID-19, influenza, myocardial infarction, myocardial ischemia, anemia, electrolyte abnormalities Course: 07:54 My independent interpretation patient's laboratory evaluation is as follows: WBC was normal 7500. Platelet count low 146,000-chronic. VBG: PH 7.47, pCO2 60, PO2 63, bicarb of 45-consistent with a chronic compensation secondary to COPD. COVID-19 was negative. Influenza a was positive. Chest x-ray concerning for bilateral lower lobe infiltrates right greater than left with similar infiltrates noted 06/29/2024 suggesting these infiltrates or chronic. Given her positive influenza test I suspect that she has a viral pneumonia however she does have significant when disease therefore I will treat her with ceftriaxone 1 g IV and azithromycin 500 mg IV, The patient has received albuterol 10 mg and albuterol 7.5 mg nebulizer with some improvement or wheezing but she still has significant dyspnea. I will discuss admission with the covering hospitalist. Differential Diagnosis Differential Diagnoses: The differential diagnosis associated with the presentation includes (See above) Admission/Observation Consideration of admission/observation: Escalation of care including admission/observation considered (Yes) Lab Data 06/27/25 06:43 06/27/25 08:34 Labs: Lab Results 06/27/25 06/27/25 06/27/25 Range/Units 06:43 06:50 08:34 WBC 7.5 (4.8-10.8) X10*3/uL RBC 4.67 D (4.20-5.50) X10*6/uL Hgb 14.3 (12.0-16.0) g/dl Hct 41.9 D (37.0-47.0) % MCV 89.7 (80.0-98.0) fL MCH 30.6 (27.0-33.0) pg MCHC 34.1 (31.0-35.0) g/dl RDW 11.9 (11.0-16.0) % Plt Count 146 L (160-400) X10*3/uL MPV 9.7 (9.4-12.3) fL Immature Gran % (Auto) 0.5 H (0.0-0.4) % Neut % (Auto) 80.2 H (45-73) % Lymph % (Auto) 11.6 L (20-40) % [place]quette % (Auto) 7.1 (2-11) % Eos % (Auto) 0.5 (0-4) % Baso % (Auto) 0.1 (0-2) % Lymph # (Auto) 0.9 L (1.2-4.9) X10*3/uL [place]quette # (Auto) 0.5 (0.1-1.2) X10*3/uL Eos # (Auto) 0.0 (0.0-0.4) X10*3/uL Baso # (Auto) 0.0 (0.0-0.2) X10*3/uL Abs Immat Gran (auto) 0.04 H (0.00-0.03) X10*3/uL Absolute Neuts (auto) 6.0 (2.0-8.3) x10*3/uL Absolute Nucleated RBC 0.000 (0.0-0.012) X10*3/uL Nucleated RBC % (auto) 0.0 (0.0-0.2) /100WBC VBG pH 7.47 H (7.32-7.43) VBG pCO2 60 mmHg VBG pO2 63 mmHg VBG HCO3 45 H (22-26) mmol/L VBG O2 Saturation 89.0 % VBG Base Excess 17.8 mmol/L Sodium 140 (135-145) mmol/L Potassium 3.2 L D (3.3-5.1) mmol/L Chloride 91 L (96-108) mmol/L Carbon Dioxide 37 H (22-29) mmol/L Anion Gap 15 (12-20) BUN 17 H (9-16) mg/dL Creatinine 0.72 (0.5-1.4) mg/dL Estim Creat Clear Calc 69.6 Estimated GFR > 60 Random Glucose 282 H (60-115) mg/dL Calcium 8.9 (8.4-10.2) mg/dL Total Bilirubin 0.4 (0.0-1.0) mg/dL AST 37 H (5-31) U/L ALT 43 H (0-31) U/L Alkaline Phosphatase 87 (39-117) U/L Troponin I High Sens 3.2 (<3.5-17.0) ng/L Total Protein 7.4 (6.5-8.0) g/dL Albumin 4.7 (3.5-5.0) g/dL Lipase 16 (8-78) U/L COVID-19 (CELINA) Negative (Negative) COVID-19 Clin Com See Note Influenza Type A (SHANIA) Positive A (Negative) Influenza Type B (SHANIA) Negative (Negative) Influenza A & B Note See Note Independent Interpretation I performed an independent interpretation of an: EKG and Plain X-Ray Interpretation: My independent interpretation patient's chest x-ray is as follows: Bilateral interstitial infiltrates, right greater than left, seen on previous film Radiology Impression Discussion of test interpretation with radiology: I have reviewed the radiologist's reading. Radiologist Impression: Single view chest Comparison: CT/SR - CT CHEST WO IV CON - 03/08/25 07:31 EDT CR/OT/NV/SR - XR CHEST 1V - 06/29/24 08:02 EDT Findings: Basilar atelectasis versus infiltrate on the left. Mild peribronchial wall thickening. Cardiomediastinal silhouette is normal. No mediastinal shift or tracheal deviation. Osseous structures intact. Impression: 1. Mild central bronchial wall thickening. 2. Left basilar atelectasis versus infiltrate. This document has been electronically signed by: Mingo Dutton MD on 06/27/2025 09:58:52 Dictated By: Mingo Dutton MD Discharge Plan Discharge Prescriptions: No Action Lincolni Aerosphere 160-9-4.8 mcg/actuation HFA aerosol inhaler 2 inh inhalation BID Qty: 3 0RF morphine 15 mg Tablet Extended Release 15 mg PO BID hydrochlorothiazide 12.5 mg Tablet 12.5 mg PO DAILY oxycodone 10 mg Tablet 10 mg PO QID PRN (Reason: Pain, Moderate) multivitamin Tablet 1 tab PO DAILY ibuprofen 800 mg Tablet 800 mg PO TID PRN (Reason: Pain) naloxone 0.4 mg/mL Solution 0.4 mg SUBCUT Q3M PRN (Reason: overdose) Rx Instructions: NTExceed 10 mg total dose/episode alendronate 70 mg Tablet 70 mg PO MO Rx Instructions: on mondays amlodipine 10 mg Tablet 10 mg PO DAILY docusate sodium 100 mg Capsule 100 mg PO DAILY albuterol sulfate 90 mcg/actuation HFA aerosol inhaler 2 puff inhalation Q4H PRN (Reason: shortness of breath or wheezing) flunisolide 25 mcg (0.025 %) spray,non-aerosol 1 spray intranasal BID Qty: 25 0RF roflumilast [Daliresp] 500 mcg tablet 500 mcg PO DAILY Qty: 90 2RF ipratropium-albuterol 0.5 mg-3 mg(2.5 mg base)/3 mL solution for nebulization 3 ml INHALATION QID PRN (Reason: Wheezing) Qty: 180 3RF doxycycline hyclate 100 mg capsule 100 mg PO BID Qty: 14 0RF prednisone 10 mg tablet 10 mg PO DIRECTED Qty: 30 0RF Rx Instructions: see taper instructions; 40 mg Daily x3 days, 30 mg daily x3 days, 20 mg daily x3 days, 10 mg daily x3 days Print Language: [place]
--- NOTE | 2025-06-27 06:36 | ECG_ITS ---
Test Reason : SOB Blood Pressure : */* mmHG Vent. Rate : 103 BPM Atrial Rate : 103 BPM P-R Int : 130 ms QRS Dur : 98 ms QT Int : 352 ms P-R-T Axes : 68 70 74 degrees QTcB Int : 461 ms Sinus tachycardia Minimal voltage criteria for LVH, may be normal variant ( Sokolow-Luna ) Borderline ECG When compared with ECG of 29-Jun-2024 07:14, No significant change was found Referred By: Edward Palencia Electronically Signed By: KATE RIVERA MD
--- OUTSIDE RECORDS SUMMARY | 2025-06-27 06:42 | XMS_ITS | Encounter Summary ---
Author Organization [facility] Address [address] [place] [address] [place] [address] Phone Care Team Providers Care Recycling Technician Name Role Phone Vilma Bentley Primary Care Provider +1- [phone] Encounter Details Date Type Department Care Team (Late Contact Info) Description 02/03/2019 Procedure Pass [facility] Endoscopy Admitting Dept Virtual Department [address] [place] [id number] Social History Tobacco Use Types Packs/Day Years [...] Description 08/19/2025 11:30 AM EST Office Visit [facility] [address] [place] [address] Unknown, Unknown, Alethea Najera, MANAGER BUSINESS CONTINUITY [address] [phone] [email or web address] documented as of this encounter Visit Diagnoses Not on filedocumented in this encounter Care Teams Recycling Technician Relationship Specialty Start Date End Date Vilma Bentley PA [address] [place] [phone] PCP - General Bilingual Speech Language Pathologist 05/08/18 documented as of this encounter Additional Source Comments The information contained in this document represents components of the legal health record. It is not the complete legal health record.[facility]
--- OUTSIDE RECORDS SUMMARY | 2025-06-27 06:42 | XMS_ITS | Encounter Summary ---
Author Organization [facility] Address [address] [place] [phone] Phone Care Team Providers Care Manager Merchandising Name Role Phone Vilma Bentley Primary Care Provider +1- [phone] Encounter Details Date Type Department Care Team (Late st Contact Info) Description 10/07/2018 Procedure Pass [facility] Endoscopy Admitting Dept Virtual Department [address] [place] [id number] Social History Tobacco Use Types Packs/Day Years [...] Description 08/19/2025 11:30 AM EST Office Visit [facility] [address] [place] [address] Unknown, Unknown, Alethea Najera, SENIOR BENEFITS MANAGER [address] [address] [email or web address] documented as of this encounter Visit Diagnoses Not on filedocumented in this encounter Care Teams Manager Merchandising Relationship Specialty Start Date End Date Vilma Bentley PA [address] [place] [phone] PCP - General Inbound Call Center Representative 05/08/18 documented as of this encounter Additional Source Comments The information contained in this document represents components of the legal health record. It is not the complete legal health record.[facility]
--- OUTSIDE RECORDS SUMMARY | 2025-06-27 06:42 | XMS_ITS | Clinical Summary ---
Author Organization [facility] Address [address] [address] Phone Care Team Providers Care Media Clerk Name Role Phone Michi Stout Primary Care Provider +1- [phone] Allergies Active Allergy Reactions Criticality Noted Date [...] Description 08/19/2025 11:30 AM EST Office Visit [facility] [address] [place] [address] Unknown, Unknown, Alethea Najera, CCNA [address] [place] [phone] [email or web address] Health Maintenance Due Date Last Done [...] 64 Admit Type: Outpatient Gender: Female Room: [place] [address] Referring MD: MICHI STOUT MD Exam Type: [...] monitored continuously. The Olympus adult variable colonoscope [id number] #1 was introduced through the anus and [...] 8:50 AM Procedure Code(s): --- Professional --- 43272, Colonoscopy, flexible; diagnostic, including collection of specimen(s) by brushing or washing, when performed (separateprocedure) --- Technical --- 57914, Colonoscopy, flexible; diagnostic, including collection of specimen(s) by brushing or washing, when performed (separateprocedure) Diagnosis Code(s): --- Professional --- R19.5, Other fecal abnormalities Z80.0, Family history of malignant neoplasm of digestive organs --- Technical --- R19.5, Other fecal abnormalities Z80.0, Family history of malignant neoplasm of digestive organs CPT copyright 2016 [employer]. All rights reserved. The codes documented in this report are preliminary and upon product safety test engineer reviewmay be revised to meet current compliance requirements. [address] [place] [address] Michi IVLLALOBOS GI PROCEDURE ORDERABLES Fi nal Result from Last 3 Months or Most Recently Relevant to Health Maintenance Insurance [facility] [place] [address] MEDICARE PART A & [address] [place], [place] [address] [address] [address] [place] [address] [address] MEDICARE PART A & B [facility] [place] [address] MEDICARE PART A & B [facility] [place] [address] MEDICARE PART A & [place] [address] [place] [address] MEDICARE PART A & [place] [address] MEDICARE PART A & [place] [address] [place] [address] MEDICARE PART A [place] [address] MEDICARE PART A & B Care Teams Media Clerk Relationship Specialty Start Date End Date Michi Stout PA [address] [place] [phone] PCP - General University Tutor 05/08/18 Additional Source Comments The information contained in this document represents components of the legal health record. It is not the complete legal health record.[facility]
[2025-06-27] MEDS: Albuterol Sulfate 7.5 MG, Albuterol Sulfate (0.083%) 2.5 MG 10 MG INHALE (06:49)
[2025-06-27 06:51] LABS: Hematocrit 41.9 % (37.0-47.0); Hemoglobin 14.3 g/dl (12.0-16.0); Imm Gran Abs Auto 0.04 X10*3/uL (0.00-0.03); Imm Gran Pct Auto 0.5 % (0.0-0.4); Lymphocytes Absolute Auto 0.9 X10*3/uL (1.2-4.9); MANUAL DIFF FLAG NO; Mean Corpuscular HGB Conc 34.1 g/dl (31.0-35.0); Mean Corpuscular Hemoglobin 30.6 pg (27.0-33.0); Mean Corpuscular Volume 89.7 fL (80.0-98.0); NRBC Abs Auto 0.000 X10*3/uL (0.0-0.012); NRBC Pct Auto 0.0 /100WBC (0.0-0.2); Platelet Count 146 X10*3/uL (160-400); Red Blood Count 4.67 X10*6/uL (4.20-5.50); White Blood Count 7.5 X10*3/uL (4.8-10.8)
[2025-06-27 06:51] LABS: Venous Blood Gas Refer to POC result
[2025-06-27 06:54] LABS: VBG HCO3 45 mmol/L (22-26); VBG O2 % Saturation 89.0 %
[2025-06-27 07:35] LABS: COVID-19 Test Negative (Negative); IDNOW Serial# 55D5AD1C; IDNOW Serial# 58CA691E; Influenza B2 Negative (Negative)
[2025-06-27] MEDS: Albuterol Sulfate 5 MG, Albuterol/Iprat 2.5/0.5MG 3 ML 3 ML INHALE (08:10)
[2025-06-27 08:57] LABS: Alanine Aminotransferase 43 U/L (0-31); Albumin Level 4.7 g/dL (3.5-5.0); Alkaline Phosphatase 87 U/L (39-117); Anion Gap 15 (12-20); Aspartate Amino Transferase 37 U/L (5-31); Blood Urea Nitrogen 17 mg/dL (9-16); Calcium 8.9 mg/dL (8.4-10.2); Carbon Dioxide 37 mmol/L (22-29); Chloride 91 mmol/L (96-108); Creatinine Clr Calc Pharmacy 69.6; Estimated Glomerular Filt Rate > 60; Lipase 16 U/L (8-78); Potassium 3.2 mmol/L (3.3-5.1); Sodium 140 mmol/L (135-145); Total Protein 7.4 g/dL (6.5-8.0)
[2025-06-27 09:05] LABS: Troponin-I High Sensitivity 3.2 ng/L (<3.5-17.0)
--- NOTE | 2025-06-27 10:58 | PM.IMHP ---
History of Present Illness Date of Service: 06/27/25 Chief Complaint: Shortness of breath 70-year-old female former smoker with 30 pack year history quit 18 years ago, history of underlying COPD, asthma, history of opioid dependence, chronic lower back pain who presents emergency department for evaluation of 3 days of shortness of breath and productive cough. Patient states that yesterday her symptoms got worse. She reported that she had to increase her oxygen up to 4 L and she has been using her inhalers with no effect. She denied fever, chills, nausea, vomiting, diarrhea she reports her last hospitalization was approximately 1 year ago. In the ER chest x-ray showed possible pneumonia, she was given albuterol, Rocephin, azithromycin, ibuprofen, potassium. Flu a was positive. She will be admitted for further management and treatment of acute on chronic hypoxic respiratory failure secondary to flu a, COPD and pneumonia. Review of Systems Review of Systems: Denies any recent fever chills or decrease in appetite respiratory See HPI cardiovascular Denied chest pain gastrointestinal denies any dysphagia abdominal pain nausea vomiting or diarrhea genitourinary denies any dysuria frequency or hematuria musculoskeletal denies any joint pain or swelling neuropsych denies any weakness or seizures all other systems reviewed are negative [facility] Medical History COPD (chronic obstructive pulmonary disease) Opioid dependence Chronic low back pain Pulmonary nodule Surgical History History of tonsillectomy H/O: section History of cholecystectomy Social History Household Members: Spouse Housing: House Do you presently have visiting nurse or other home services: No Alcohol intake: current Alcohol intake frequency: a few times a month Patient Tobacco Use Status: Former Tobacco user Tobacco use type: Cigarette Cigarette Packs Per Day: 1 Years Smoked: 30 Smoked in Last 30 Days: No Use of substances other than those prescribed or required for medical reasons: No Advance Directives: No Advance Directives Information Provided: Yes Do you have a plan to hurt others: No Plan service: No Current occupational status: retired 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 Meds Allergies Allergy/AdvReac Type Severity Reaction Status Date / Time No Known Allergies Allergy Verified 06/27/25 06:35 Active Medications: Current Medications Azithromycin 500 mg/ Sodium (Chloride) 250 mls @ 125 mls/hr IV ONCE ONE Stop: 06/27/25 12:21 Home Medications ?Medication ?Instructions ?Recorded ?Confirmed ?Last Taken ?Type hydrochlorothiazide 12.5 mg tablet 12.5 mg PO DAILY 05/21/22 06/27/25 06/26/25 History morphine 15 mg tablet,extended 15 mg PO BID 05/21/22 06/27/25 06/26/25 History release oxycodone 10 mg tablet 10 mg PO QID PRN Pain, Moderate 05/21/22 06/27/25 06/26/25 History albuterol sulfate 90 mcg/actuation 2 puff inhalation Q4H PRN 11/11/23 06/27/25 Unknown History aerosol inhaler shortness of breath or wheezing alendronate 70 mg tablet 70 mg PO MO@0900 11/11/23 06/27/25 06/26/25 History amlodipine 10 mg tablet 10 mg PO DAILY 11/11/23 06/27/25 06/26/25 History docusate sodium 100 mg capsule 100 mg PO DAILY 11/11/23 06/27/25 06/26/25 History ibuprofen 800 mg tablet 800 mg PO TID PRN Pain 11/11/23 06/27/25 Unknown History multivitamin 1 tab PO DAILY 11/11/23 06/27/25 06/26/25 History naloxone 0.4 mg/mL injection 0.4 mg subcut Q3M PRN overdose 11/11/23 06/27/25 Unknown History solution escitalopram oxalate 10 mg tablet 10 mg PO DAILY 06/27/25 06/27/25 06/26/25 History fluticasone propionate 50 2 spray intranasal BEDTIME 06/27/25 06/27/25 06/26/25 History mcg/actuation nasal spray,suspension hydroxyzine HCl 25 mg tablet 25 mg PO TID PRN Anxiety 06/27/25 06/27/25 Unknown History potassium chloride 20 mEq 20 meq PO DAILY 06/27/25 06/27/25 06/26/25 History tablet,extended release prednisone 20 mg tablet 40 mg PO DAILY 06/27/25 06/27/25 06/26/25 History Physical Exam Vital Signs and Narrative: Vital Signs: Last Vital Signs Temp 98.8 F 06/27/25 07:18 Pulse 111 H 06/27/25 08:12 Resp 15 06/27/25 08:12 BP 120/69 06/27/25 07:18 Pulse Ox 93 06/27/25 07:18 O2 Del Method Nasal Cannula 06/27/25 07:18 O2 Flow Rate 5 06/27/25 07:18 Oxygen Flow Rate 4 06/27/25 06:22 BMI result Body Mass Index 27.2 Appearing in no acute distress head is normocephalic atraumatic eyes pupils are PERRLA sclera is anicteric mouth throat mucous membranes are intact and moist neck is supple no lymphadenopathy, no JVD noted lung sounds exp wheezing, diminished heart regular rate rhythm, clear S1, S2 positive bowel sounds, abdomen is soft, nontender neuro patient is alert x3, no focal deficits Results Labs 06/27/25 06:43 06/27/25 08:34 Labs: Laboratory Results - last 24 hr 06/27/25 06/27/25 06/27/25 06:43 06:50 08:34 MCV 89.7 MCH 30.6 MCHC 34.1 RDW 11.9 Plt Count 146 L MPV 9.7 Immature Gran % (Auto) 0.5 H Neut % (Auto) 80.2 H Lymph % (Auto) 11.6 L [place] % (Auto) 7.1 Eos % (Auto) 0.5 Baso % (Auto) 0.1 Lymph # (Auto) 0.9 L [place] # (Auto) 0.5 Eos # (Auto) 0.0 Baso # (Auto) 0.0 Abs Immat Gran (auto) 0.04 H Absolute Neuts (auto) 6.0 Absolute Nucleated RBC 0.000 Nucleated RBC % (auto) 0.0 VBG pH 7.47 H VBG pCO2 60 VBG pO2 63 VBG HCO3 45 H VBG O2 Saturation 89.0 VBG Base Excess 17.8 Anion Gap 15 Estim Creat Clear Calc 69.6 Estimated GFR > 60 Random Glucose 282 H Calcium 8.9 Total Bilirubin 0.4 AST 37 H ALT 43 H Alkaline Phosphatase 87 Troponin I High Sens 3.2 Total Protein 7.4 Albumin 4.7 Lipase 16 COVID-19 (CELINA) Negative COVID-19 Clin Com See Note Influenza Type A (SHANIA) Positive A Influenza Type B (SHANIA) Negative Influenza A & B Note See Note Assessment and Plan (1) COPD (chronic obstructive pulmonary disease): Qualifiers: COPD type: COPD with acute exacerbation Qualified Code(s): J44.1 - Chronic obstructive pulmonary disease with (acute) exacerbation Status: Acute (2) Bronchopneumonia: Status: Acute Plan 70 year old women admitted with acute on chronic respiratory failure secondary to COPE exacerbation and pneumonia Acute on chronic respiratory failure secondary to COPD exacerbation, influenza A and mild pneumonia Patient on baseline 2-4 L of oxygen cxr showing possible pna started Rocephin and azithromycin IV solumedrol scheduled duonebs Tamiflu x 5 days Check RPP continue oxygen 4 liters for now Lactic acidosis and tachycardia Secondary to respiratory failure, albuterol, no sepsis Hypokalemia Repleted with oral potassium Hypertension continue HCTZ and amlodipine Anxiety continue lexapro and hydroxyzine Wrist fracture Tx at [facility] orthopedics continue pain medications DVT prophylaxis with hepain Full code Quality Stroke Does the patient have a stroke diagnosis?: No VTE Prior VTE?: No VTE Risk Level:: Medical - moderate - high VTE Device Contraindication: Treatment Not Indicated VTE Drug Contraindication: N/A - Med Ordered
[2025-06-27] MEDS: Albuterol Sulfate (0.083%) 2.5 MG/3 ML VIAL.NEB INHALE ×3 (11:35→20:00)
[2025-06-27 12:52] LABS: Reflex Lactate? Lactic Acid Added
--- NOTE | 2025-06-27 13:00 | PC.NURSE ---
No meal tray arrived for lunch, kitchen contacted for tray. Awaiting arrival.
--- NOTE | 2025-06-27 13:25 | PHA.MEDREC ---
Addendum entered by Nathalia Vela RPh 06/27/25 14:07: reviewed by [facility]. Original Note: Pharmacy Consult ? Medication Reconciliation Pharmacy has completed the medication reconciliation. Confirmed medication list with patient. Patient last took all non-PRNs and oxycodone yesterday.
[2025-06-27 13:38] LABS: ~Lactic Acid-LAB USE ONLY 6.7 mmol/L (0.5-2.0)
--- NOTE | 2025-06-27 15:00 | PC.NURSE ---
Still no lunch tray for pt, kitchen contacted again, awaiting arrival.
[2025-06-27 15:03] LABS: Reflex Lactate? 2 Y
[2025-06-27] MEDS: Potassium Chloride ER 20 MEQ TAB.ER.PRT 40 MEQ PO (15:06)
[2025-06-27 16:25] LABS: ~Lactic Acid-LAB USE ONLY 6.7 mmol/L (0.5-2.0)
--- NOTE | 2025-06-27 17:23 | HO.NURTONUR ---
Pt arrived c/o worsening SOB and productive cough x3 days. Hx COPD (3L baseline), opioid dependence, chronic lower back pain, pneumonia, and bronchitis. Pt flu+, admit for acute on chronic hypoxic respiratory failure, COPD, and pneumonia. Currently on 5L (fluctuates between 3-5L, goal >90%). x1 assist to bedside commode. [id number].
[2025-06-27] MEDS: oxyCODONE HCl Immed Release 5 MG TABLET 10 MG PO (17:29)
--- NOTE | 2025-06-27 18:03 | PC.NURSE ---
Third time contacting kitchen for missed lunch tray, pt declines ED sandwich at this time. Kitchen states they were given the wrong room number, despite this RN informing kitchen of pt's correct room number previously. Awaiting arrival of meal tray.
[2025-06-27] MEDS: Furosemide 20 MG/2 ML VIAL IVPUSH (21:31)
[2025-06-27] MEDS: Magnesium Sulfate/H2O 2 GM/50 ML PIGGYBACK IV (21:41)
[2025-06-27] MEDS: Morphine Sulfate ER 15 MG TABLET.ER PO (21:44)
[2025-06-27 21:51] LABS: ABG HCO3 27 mmol/L (22-26); ABG O2 % Saturation 100.0 %
[2025-06-27 21:53] LABS: NT Pro B Type Natriuretic Pept 79.1 pg/mL (<300)
[2025-06-27 21:53] LABS: Anion Gap 16 (12-20); Blood Urea Nitrogen 15 mg/dL (9-16); Calcium 8.8 mg/dL (8.4-10.2); Carbon Dioxide 35 mmol/L (22-29); Chloride 95 mmol/L (96-108); Creatinine Clr Calc Pharmacy 74.2; Estimated Glomerular Filt Rate > 60; Potassium 3.5 mmol/L (3.3-5.1); Sodium 142 mmol/L (135-145)
--- NOTE | 2025-06-27 22:04 | P.EN_ITS ---
Event Note Date of Service: 06/27/25 Event Note: Received tiger message from nursing, pt's BP and HR elevated, POX 92 on 4.5 L. Ordered for ABG, CXR, RT to bedside stat. Arrived and ABG being collected, results reassuring, Ordered Pepcid, MG 2GM X1. Pt dx with influenza on tamiful, received vaccination 2 weeks prior. Pt has known emophysema but stopped smoking 20 years ago and does not currently vape or smoke marijuana. Pt saw her wind energy engineer last month as well. Pt uses 3-4L of oxygen via NC at home. BNP pending, pt received 20 lasix IV with relief. ABG reassuring 7.45, 38, 28, 100. Ordered to hold fluids for now. LA most likely elevated due to albuterol. Added budesonide. Pt also uses hydroxyzine HCL for anxiety and will order as pt is feeling her usual level of anxiety. Original CXR ? infiltrate and pt is currently on ceftriazxone and azithromycin. Reassured pt at the bedside that things have improved and we will be monitoring closely on tele and continuous pulse ox overnight. Time Spent With Patient Time: Total time managing care of this patient today ____ minutes.
[2025-06-27 22:18] LABS: Magnesium 1.6 mg/dL (1.6-2.6)
--- NOTE | 2025-06-27 23:12 | PC.NURSE ---
[facility] Patient's heart rate was ranging between 103-110 and went up to 117 during movement in bed. Patient's blood pressure was also noted to be high at 157/72. Patient was on 4.5 L of oxygen via NC. Upon auscultation I heard inspiratory and expiratory wheezing and crackles bilaterally. Patient was noted do be using abd muscles when breathing. STAT orders received for EKG, lab draws, chest xray, ABG draw, and medication orders. Meghan came to bedside and also assessed patient.
[2025-06-27 23:31] LABS: ABG Refer to POC result
[2025-06-27 23:39] LABS: Reflex Lactate? Lactic Acid Added
[2025-06-28] VITALS (10 sets, daily range): BP systolic 156–174; BP diastolic 77–90; PULSE 96–104; RESP 18–20; TEMP 36.1–37.2; O2SAT 92–97
[2025-06-28 00:38] LABS: ~Lactic Acid-LAB USE ONLY 0.9 mmol/L (0.5-2.0)
[2025-06-28] MEDS: Albuterol/Iprat 2.5/0.5MG 3 ML AMPUL.NEB INHALE ×2 (02:45→10:23)
[2025-06-28] MEDS: oxyCODONE HCl Immed Release 5 MG TABLET 10 MG PO ×3 (06:52→19:33)
[2025-06-28 06:53] LABS: MANUAL DIFF FLAG NO
[2025-06-28 06:58] LABS: Hematocrit 41.9 % (37.0-47.0); Hemoglobin 14.2 g/dl (12.0-16.0); Imm Gran Abs Auto 0.03 X10*3/uL (0.00-0.03); Imm Gran Pct Auto 0.7 % (0.0-0.4); Lymphocytes Absolute Auto 0.4 X10*3/uL (1.2-4.9); Mean Corpuscular HGB Conc 33.9 g/dl (31.0-35.0); Mean Corpuscular Hemoglobin 29.9 pg (27.0-33.0); Mean Corpuscular Volume 88.2 fL (80.0-98.0); NRBC Abs Auto 0.000 X10*3/uL (0.0-0.012); NRBC Pct Auto 0.0 /100WBC (0.0-0.2); Platelet Count 155 X10*3/uL (160-400); Red Blood Count 4.75 X10*6/uL (4.20-5.50); White Blood Count 4.5 X10*3/uL (4.8-10.8)
[2025-06-28 07:19] LABS: Anion Gap 15 (12-20); Blood Urea Nitrogen 14 mg/dL (9-16); Calcium 8.8 mg/dL (8.4-10.2); Carbon Dioxide 39 mmol/L (22-29); Chloride 91 mmol/L (96-108); Creatinine Clr Calc Pharmacy 76.5; Estimated Glomerular Filt Rate > 60; Potassium 3.7 mmol/L (3.3-5.1); Sodium 141 mmol/L (135-145)
[2025-06-28] MEDS: Morphine Sulfate ER 15 MG TABLET.ER PO ×2 (08:02→20:52)
[2025-06-28] MEDS: Potassium Chloride ER 20 MEQ TAB.ER.PRT PO (08:02)
[2025-06-28] MEDS: 0.9 % Sodium Chloride Flush 3 ML SYRINGE IVFLUSH ×3 (08:05→20:53)
--- NOTE | 2025-06-28 08:56 | HO.PM.IMPN ---
Subjective Subjective Date of Service: 06/28/25 Interval History: Seen and examined this morning Follow-up for COPD exacerbation, parainfluenza Still reporting dyspnea on exertion, significant wheezing although overall slowly improving Review of Systems Review of Systems: Yes all other systems are reviewed and are negative Constitutional Constitutional: Denies chills and Denies fever(s) Cardiovascular Cardiovascular: Denies chest pain, Denies palpitations and Denies dyspnea Respiratory Respiratory: Denies cough and Denies dyspnea Gastrointestinal Gastrointestinal: Denies abdominal pain, Denies nausea and Denies vomiting Endocrine Endocrine: Denies palpitations Physical Exam Exam: Exam: Appearing in no acute distresss lung sounds dim with exp wheezing heart regular rate rhythm, clear S1, S2 positive bowel sounds, abdomen is soft, nontender neuro patient is alert x3, no focal deficits Vital Signs: Vital Signs: Last Vital Signs Temp 97.0 F 06/28/25 07:52 Pulse 102 H 06/28/25 08:17 Resp 18 06/28/25 08:17 BP 158/83 H 06/28/25 07:52 Pulse Ox 96 06/28/25 07:52 O2 Del Method Oxymask 06/28/25 07:52 O2 Flow Rate 4.5 06/28/25 07:52 Oxygen Flow Rate 4 06/27/25 06:22 BMI result Body Mass Index 25.8 Objective Data Active Medications Acetaminophen (Acetaminophen 325 Mg Tablet) 650 mg PO Q6H PRN PRN Reason: Pain, Mild 1-3,fever,headache Albuterol/Ipratropium (Albuterol/Iprat 2.5/0.5mg 3 Ml Ampul.Neb) 3 ml INHALE RQ4H WHILE AWAKE PRN PRN Reason: Shortness of Breath/Wheezing Last Admin: 06/28/25 02:45 Dose: 3 ml Documented By: OLIVIER Amlodipine Besylate (Amlodipine Besylate 10 Mg Tablet) 10 mg PO DAILY [facility]; Protocol Last Admin: 06/28/25 08:02 Dose: 10 mg Documented By: COLE Budesonide (Budesonide 0.5 Mg/2 Ml Ampul.Neb) 0.5 mg INHALE RBID PENDING SALE TO [facility] Last Admin: 06/28/25 08:16 Dose: 0.5 mg Documented By: HORACIO Calcium Carbonate (Calcium Carbonate 750 Mg Tab.Chew) 750 mg PO Q4H PRN PRN Reason: Heartburn Docusate Sodium (Docusate Sodium 100 Mg Capsule) 100 mg PO DAILY [facility] Last Admin: 06/28/25 08:02 Dose: 100 mg Documented By: COLE Escitalopram Oxalate (Escitalopram Oxalate 10 Mg Tablet) 10 mg PO DAILY [facility] Last Admin: 06/28/25 08:02 Dose: 10 mg Documented By: COLE Heparin Sodium (Porcine) (Heparin Sodium,Porcine 5,000 Unit/Ml Vial) 5,000 unit SUBCUT Q12H [facility]END[facility] TO [facility] Last Admin: 06/27/25 22:32 Dose: 5,000 unit Documented By: AAYUSH Hydralazine HCl (Hydralazine Hcl 20 Mg/Ml Vial) 10 mg IVPUSH Q6H PRN; Protocol PRN Reason: SBP > 160 Last Admin: 06/28/25 03:54 Dose: 10 mg Documented By: AAYUSH Hydrochlorothiazide (Hydrochlorothiazide 12.5 Mg Tablet) 12.5 mg PO DAILY [facility]; Protocol Last Admin: 06/28/25 08:02 Dose: 12.5 mg Documented By: COLE Hydroxyzine HCl (Hydroxyzine Hcl 25 Mg Tablet) 25 mg PO TID PRN PRN Reason: Anxiety Last Admin: 06/28/25 06:52 Dose: 25 mg Documented By: KELLY Ceftriaxone Sodium 1 gm/ (Sodium Chloride) 50 mls @ 100 mls/hr IV Q24H [facility]END[facility] TO [facility] Azithromycin 500 mg/ Sodium (Chloride) 250 mls @ 125 mls/hr IV Q24H [facility]END[facility] TO [facility] Magnesium Hydroxide (Milk Of Magnesia 30 Ml Oral.Susp) 30 ml PO DAILY PRN PRN Reason: Constipation Melatonin (Melatonin 3 Mg Tablet) 6 mg PO BEDTIME PRN PRN Reason: Insomnia Methylprednisolone Sodium Succinate (Methylprednisolone Sod Succ 40 Mg/Ml Vial) 40 mg IVPUSH Q12H [facility] Last Admin: 06/27/25 22:32 Dose: 40 mg Documented By: AAYUSH Morphine Sulfate (Morphine Sulfate Er 15 Mg Tablet.Er) 15 mg PO BID [facility] Last Admin: 06/28/25 08:02 Dose: 15 mg Documented By: COLE Multivitamins/Vitamin C (Multivitamin Tablet) 1 tab PO DAILY [facility] Last Admin: 06/28/25 08:02 Dose: 1 tab Documented By: COLE Naloxone HCl (Naloxone Hcl 0.4 Mg/Ml Vial) 0.4 mg SUBCUT Q3M PRN PRN Reason: overdose Ondansetron HCl (Ondansetron Hcl 4 Mg/2 Ml Vial) 4 mg IVPUSH Q8H PRN PRN Reason: Nausea and Vomiting Oseltamivir Phosphate (Oseltamivir Phosphate 75 Mg Capsule) 75 mg PO Q12H [facility] Stop: 07/01/25 21:01 Last Admin: 06/28/25 08:02 Dose: 75 mg Documented By: COLE Oxycodone HCl (Oxycodone Hcl Immed Release 5 Mg Tablet) 10 mg PO QID PRN PRN Reason: Pain, Moderate Last Admin: 06/28/25 06:52 Dose: 10 mg Documented By: KELLY Potassium Chloride (Potassium Chloride Er 20 Meq Tab.Er.Prt) 20 meq PO DAILY [facility] Last Admin: 06/28/25 08:02 Dose: 20 meq Documented By: COLE Sodium Chloride (0.9 % Sodium Chloride Flush 3 Ml Syringe) 3 ml IVFLUSH QSHIFT [facility]END[facility] SALE TO [facility] Last Admin: 06/28/25 08:05 Dose: 3 ml Documented By: COLE Labs 06/28/25 05:22 06/28/25 05:22 Labs: Laboratory Results - last 24 hr 06/27/25 06/27/25 06/27/25 08:34 10:43 13:00 MCV MCH MCHC RDW Plt Count MPV Immature Gran % (Auto) Neut % (Auto) Lymph % (Auto) [place] % (Auto) Eos % (Auto) Baso % (Auto) Lymph # (Auto) [place] # (Auto) Eos # (Auto) Baso # (Auto) Abs Immat Gran (auto) Absolute Neuts (auto) Absolute Nucleated RBC Nucleated RBC % (auto) O2 Saturation ABG pH at Pt Temp ABG pCO2 at Pt Temp ABG pO2 at Pt Temp ABG HCO3 ABG Base Excess (Actual) Anion Gap 15 Estim Creat Clear Calc 69.6 Estimated GFR > 60 Random Glucose 282 H Estimat Average Glucose Hemoglobin A1c % Lactic Acid 2.9 H* Lactic Acid F/U @ 2Hr 6.7 H* Lactic Acid F/U @ 4Hr Calcium 8.9 Magnesium 1.6 Total Bilirubin 0.4 AST 37 H ALT 43 H Alkaline Phosphatase 87 Troponin I High Sens 3.2 NT-Pro-B Natriuret Pep 79.1 Total Protein 7.4 Albumin 4.7 Lipase 16 TSH 0.80 06/27/25 06/27/25 06/27/25 15:54 21:35 21:47 MCV MCH MCHC RDW Plt Count MPV Immature Gran % (Auto) Neut % (Auto) Lymph % (Auto) [place] % (Auto) Eos % (Auto) Baso % (Auto) Lymph # (Auto) [place] # (Auto) Eos # (Auto) Baso # (Auto) Abs Immat Gran (auto) Absolute Neuts (auto) Absolute Nucleated RBC Nucleated RBC % (auto) O2 Saturation 100.0 ABG pH at Pt Temp 7.45 ABG pCO2 at Pt Temp 39 ABG pO2 at Pt Temp 110 H ABG HCO3 27 H ABG Base Excess (Actual) 3.5 Anion Gap 16 Estim Creat Clear Calc 74.2 Estimated GFR > 60 Random Glucose 206 H Estimat Average Glucose Hemoglobin A1c % Lactic Acid 2.4 H* Lactic Acid F/U @ 2Hr Lactic Acid F/U @ 4Hr 6.7 H* Calcium 8.8 Magnesium Total Bilirubin AST ALT Alkaline Phosphatase Troponin I High Sens NT-Pro-B Natriuret Pep Total Protein Albumin Lipase TSH 06/28/25 06/28/25 00:08 05:22 MCV 88.2 MCH 29.9 MCHC 33.9 RDW 11.9 Plt Count 155 L MPV 9.9 Immature Gran % (Auto) 0.7 H Neut % (Auto) 84.6 H Lymph % (Auto) 9.8 L [place] % (Auto) 4.7 Eos % (Auto) 0.0 Baso % (Auto) 0.2 Lymph # (Auto) 0.4 L [place] # (Auto) 0.2 Eos # (Auto) 0.0 Baso # (Auto) 0.0 Abs Immat Gran (auto) 0.03 Absolute Neuts (auto) 3.8 Absolute Nucleated RBC 0.000 Nucleated RBC % (auto) 0.0 O2 Saturation ABG pH at Pt Temp ABG pCO2 at Pt Temp ABG pO2 at Pt Temp ABG HCO3 ABG Base Excess (Actual) Anion Gap 15 Estim Creat Clear Calc 76.5 Estimated GFR > 60 Random Glucose 215 H Estimat Average Glucose 143 Hemoglobin A1c % 6.6 H Lactic Acid Lactic Acid F/U @ 2Hr 0.9 Lactic Acid F/U @ 4Hr Calcium 8.8 Magnesium Total Bilirubin AST ALT Alkaline Phosphatase Troponin I High Sens NT-Pro-B Natriuret Pep Total Protein Albumin Lipase TSH Assessment and Plan (1) Influenza A: Status: Acute Plan 70 year old women admitted with acute on chronic respiratory failure secondary to COPE exacerbation and pneumonia Acute on chronic respiratory failure secondary to COPD exacerbation, influenza A and mild pneumonia Patient on baseline 2-4 L of oxygen cxr showing possible pna continue Rocephin and azithromycin IV solumedrol scheduled duonebs Tamiflu x 5 days for flu A Check RPP continue oxygen 4 liters for now Lactic acidosis and tachycardia Secondary to respiratory failure, albuterol, no sepsis Elevated blood sugars Likely secondary to steroid use A1c 6.6 Hypokalemia Repleted with oral potassium Hypertension continue HCTZ and amlodipine Anxiety continue lexapro and hydroxyzine Wrist fracture in [place] [facility] [place] continue pain medications DVT prophylaxis with heparin Full code Quality Stroke Does the patient have a stroke diagnosis?: No VTE Prior VTE?: No VTE Risk Level:: Medical - moderate - high VTE Device Contraindication: Treatment Not Indicated VTE Drug Contraindication: N/A - Med Ordered
[2025-06-28] MEDS: guaiFENesin LA 600 MG TAB.ER.12H PO ×2 (11:13→20:52)
[2025-06-28 13:40] LABS: Chlamydia pneumoniae PCR Not Detected (Not Detect.); Coronavirus 229E PCR Not Detected (Not Detect.); Coronavirus HKU1 PCR Not Detected (Not Detect.); Coronavirus NL63 PCR Not Detected (Not Detect.); Coronavirus OC43 PCR Not Detected (Not Detect.); Influenza A H3 PCR Detected (Not Detect.); RSV PCR Not Detected (Not Detect.); Rhino/Enterovirus PCR Not Detected (Not Detect.)
[2025-06-28 14:00] LABS: Influenza A H1 PCR Not Detected (Not Detect.); Influenza A H1-2009 PCR Not Detected (Not Detect.); SARS-CoV-2 PCR Not Detected (Not Detect.)
--- NOTE | 2025-06-28 15:54 | MHC.CM.PN ---
PT REPORTS SHE LIVES WITH HER WHO ASSISTS HER WITH ADLS SHE HAS HOME O2 FROM [facility] AND A NEBULIZER FOR DME COPY OF HCP REQUESTED PCP: VICKY STOUT IMM DELIVERED DCP: HOME [facility]
[2025-06-29] VITALS (15 sets, daily range): BP systolic 136–182; BP diastolic 70–100; PULSE 92–120; RESP 18–20; TEMP 35.9–36.9; O2SAT 89–95
[2025-06-29] MEDS: oxyCODONE HCl Immed Release 5 MG TABLET 10 MG PO ×2 (04:38→16:39)
--- NOTE | 2025-06-29 05:55 | PC.NURSE ---
At 0312 patients manual BP was 174/92, administered her prn hydralazine. Reassessment blood pressure was 164/100. Notified Meghan Virk and she suggested this could be due to pain. patient stated 6/10 pain, administered her prn oxycodone. Reassessment of blood pressure is now 160/92.
--- NOTE | 2025-06-29 06:45 | PM.EVENT ---
Event Note Date of Service: 06/29/25 Event Note: Report from nursing, 6 beat run VT, pt asymptomatic. Labs were drawn per nursing, no results noted so far. Ordering stat BMP, MG in case labs were not drawn. Updated day provider. Time Spent With Patient Time: Total time managing care of this patient today ____ minutes.
[2025-06-29 07:22] LABS: MANUAL DIFF FLAG NO
--- NOTE | 2025-06-29 07:27 | PC.NURSE ---
air twist operator tech notified this RN of patients 6 beats of Vtach on tele monitor. Meghan Virk notified. Patient asymptomatic. Labs were ordered.
[2025-06-29 07:33] LABS: Hematocrit 47.2 % (37.0-47.0); Hemoglobin 15.6 g/dl (12.0-16.0); Imm Gran Abs Auto 0.03 X10*3/uL (0.00-0.03); Imm Gran Pct Auto 0.3 % (0.0-0.4); Lymphocytes Absolute Auto 1.4 X10*3/uL (1.2-4.9); Mean Corpuscular HGB Conc 33.1 g/dl (31.0-35.0); Mean Corpuscular Hemoglobin 29.8 pg (27.0-33.0); Mean Corpuscular Volume 90.2 fL (80.0-98.0); NRBC Abs Auto 0.000 X10*3/uL (0.0-0.012); NRBC Pct Auto 0.0 /100WBC (0.0-0.2); Platelet Count 204 X10*3/uL (160-400); Red Blood Count 5.23 X10*6/uL (4.20-5.50); White Blood Count 10.5 X10*3/uL (4.8-10.8)
[2025-06-29] MEDS: 0.9 % Sodium Chloride Flush 3 ML SYRINGE IVFLUSH ×3 (07:38→20:19)
[2025-06-29 07:39] LABS: Anion Gap 15 (12-20); Blood Urea Nitrogen 21 mg/dL (9-16); Calcium 8.7 mg/dL (8.4-10.2); Carbon Dioxide 36 mmol/L (22-29); Chloride 95 mmol/L (96-108); Creatinine Clr Calc Pharmacy 77.7; Estimated Glomerular Filt Rate > 60; Magnesium 2.4 mg/dL (1.6-2.6); Potassium 3.6 mmol/L (3.3-5.1); Sodium 142 mmol/L (135-145)
[2025-06-29] MEDS: Albuterol/Iprat 2.5/0.5MG 3 ML AMPUL.NEB INHALE ×2 (08:06→12:09)
[2025-06-29] MEDS: guaiFENesin LA 600 MG TAB.ER.12H PO ×2 (09:21→20:19)
[2025-06-29] MEDS: Morphine Sulfate ER 15 MG TABLET.ER PO ×2 (09:21→20:18)
[2025-06-29] MEDS: Potassium Chloride ER 20 MEQ TAB.ER.PRT PO (09:21)
--- NOTE | 2025-06-29 10:25 | P.CDIM_ITS ---
PROVIDER RESPONSE TEXT: To clarify, the appropriate diagnosis supported by the clinical indicators: Chronic QUERY TEXT: PHYSICIAN'S DOCUMENTATION REQUEST Date of Query: 06/28/2025 08:06 AM EDT Patient Name: Bernie Oh Admit Date: 06/27/2025 Dear Rozina Tong GROCERY CLERK MARKING, A review of the medical record indicates additional documentation may be needed. Please review below and update the documentation accordingly. Clinical Indicators: H7P 06/27/25 - Lactic acidosis and tachycardia Secondary to respiratory failure, albuterol, no sepsis. LA 6.7/2.4 Fluids Clarify which of the following accurately represents the acuity of the Lactic acidosis: Possible options might include: Acute Chronic Other (explain) Clinically unable to determine (explain) Thank you, Kylah Gonzalez, CCS, CDIS Use of terms such as suspected, likely, concern for, or probable (associated with a specific diagnosis that is being evaluated, monitored, or treated as if it exists) are acceptable and can be coded in the inpatient setting, when documented at the time of discharge. Please use your independent medical judgment in providing your response. THIS QUERY IS PART OF THE PERMANENT MEDICAL RECORD
[2025-06-29] MEDS: levalbuterol HCL 1.25 MG, Ipratropium Bromide 0.5 MG INHALE ×2 (16:24→22:28)
--- NOTE | 2025-06-29 16:29 | P.PNIM_ITS ---
Subjective Subjective Date of Service: 06/29/25 Interval History: Patient seen and examined at bedside this morning, patient states that her breathing has slightly improved, however persist with shortness of breath and wheezing. Review of Systems Review of Systems: Yes all other systems are reviewed and are negative Physical Exam 2 Exam: Exam: General: AxOx3, mild acute distress Head: AT/NC ENT: Moist mucous membranes Neck: supple CVS; RRR, S1 S2 normal Lungs: bilateral wheezing Abd: Soft non tender, non distended Ext: No edema and no calf tenderness MSK: moving all 4 limbs Skin: No cyanosis or edema Psych: Cooperative with exam Neurology: no focal deficit Vital Signs: Vital Signs: Last Vital Signs Temp 96.7 F L 06/29/25 16:00 Pulse 110 H 06/29/25 16:00 Resp 20 06/29/25 16:00 BP 182/80 H 06/29/25 16:00 Pulse Ox 94 06/29/25 16:00 O2 Del Method Simple Mask 06/29/25 16:00 O2 Flow Rate 4 06/29/25 16:00 Oxygen Flow Rate 4 06/27/25 06:22 BMI result Body Mass Index 25.8 Objective Data Active Medications Acetaminophen (Acetaminophen 325 Mg Tablet) 650 mg PO Q6H PRN PRN Reason: Pain, Mild 1-3,fever,headache Albuterol/Ipratropium (Albuterol/Iprat 2.5/0.5mg 3 Ml Ampul.Neb) 3 ml INHALE RQ4H WHILE AWAKE PRN PRN Reason: Shortness of Breath/Wheezing Last Admin: 06/29/25 12:09 Dose: 3 ml Documented By: HORACIO Amlodipine Besylate (Amlodipine Besylate 10 Mg Tablet) 10 mg PO DAILY [facility]; Protocol Last Admin: 06/29/25 09:22 Dose: 10 mg Documented By: BRIAN Budesonide (Budesonide 0.5 Mg/2 Ml Ampul.Neb) 0.5 mg INHALE RBID [facility] Last Admin: 06/29/25 08:06 Dose: 0.5 mg Documented By: HORACIO Calcium Carbonate (Calcium Carbonate 750 Mg Tab.Chew) 750 mg PO Q4H PRN PRN Reason: Heartburn Levalbuterol HCl 1.25 mg/ (Ipratropium [place] 0.5 mg) 0 mg INHALE RQ6H [facility] Last Admin: 06/29/25 16:24 Dose: 1.3 dose Documented By: HORACIO Docusate Sodium (Docusate Sodium 100 Mg Capsule) 100 mg PO DAILY [facility] Last Admin: 06/29/25 09:22 Dose: 100 mg Documented By: BRIAN Escitalopram Oxalate (Escitalopram Oxalate 10 Mg Tablet) 10 mg PO DAILY [facility] Last Admin: 06/29/25 09:22 Dose: 10 mg Documented By: BRIAN Guaifenesin (Guaifenesin [place] 600 Mg Tab.Er.12h) 600 mg PO BID [facility] Last Admin: 06/29/25 09:21 Dose: 600 mg Documented By: BRIAN Heparin Sodium (Porcine) (Heparin Sodium,Porcine 5,000 Unit/Ml Vial) 5,000 unit SUBCUT Q12H [facility] Last Admin: 06/29/25 11:45 Dose: 5,000 unit Documented By: BRIAN Hydralazine HCl (Hydralazine Hcl 20 Mg/Ml Vial) 10 mg IVPUSH Q6H PRN; Protocol PRN Reason: SBP > 160 Last Admin: 06/29/25 03:26 Dose: 10 mg Documented By: AAYUSH Hydrochlorothiazide (Hydrochlorothiazide 12.5 Mg Tablet) 12.5 mg PO DAILY [facility]; Protocol Last Admin: 06/29/25 09:22 Dose: 12.5 mg Documented By: BRIAN Hydroxyzine HCl (Hydroxyzine Hcl 25 Mg Tablet) 25 mg PO TID PRN PRN Reason: Anxiety Last Admin: 06/29/25 11:59 Dose: 25 mg Documented By: BRIAN Ceftriaxone Sodium 1 gm/ (Sodium Chloride) 50 mls @ 100 mls/hr IV Q24H [facility] Last Infusion: 06/29/25 12:18 Dose: Infused Documented By: BRIAN Azithromycin 500 mg/ Sodium (Chloride) 250 mls @ 125 mls/hr IV Q24H [facility] Last Infusion: 06/29/25 14:18 Dose: Infused Documented By: BRIAN Magnesium Hydroxide (Milk Of Magnesia 30 Ml Oral.Susp) 30 ml PO DAILY PRN PRN Reason: Constipation Melatonin (Melatonin 3 Mg Tablet) 6 mg PO BEDTIME PRN PRN Reason: Insomnia Methylprednisolone Sodium Succinate (Methylprednisolone Sod Succ 40 Mg/Ml Vial) 40 mg IVPUSH TID [facility] Last Admin: 06/29/25 16:20 Dose: 40 mg Documented By: BRIAN Comments: delay due to loss IV access. Morphine Sulfate (Morphine Sulfate Er 15 Mg Tablet.Er) 15 mg PO BID [facility] Last Admin: 06/29/25 09:21 Dose: 15 mg Documented By: BRIAN Multivitamins/Vitamin C (Multivitamin Tablet) 1 tab PO DAILY [facility] Last Admin: 06/29/25 09:22 Dose: 1 tab Documented By: BRIAN Naloxone HCl (Naloxone Hcl 0.4 Mg/Ml Vial) 0.4 mg SUBCUT Q3M PRN PRN Reason: overdose Ondansetron HCl (Ondansetron Hcl 4 Mg/2 Ml Vial) 4 mg IVPUSH Q8H PRN PRN Reason: Nausea and Vomiting Oseltamivir Phosphate (Oseltamivir Phosphate 75 Mg Capsule) 75 mg PO Q12H [facility] Stop: 07/01/25 21:01 Last Admin: 06/29/25 09:22 Dose: 75 mg Documented By: BRIAN Oxycodone HCl (Oxycodone Hcl Immed Release 5 Mg Tablet) 10 mg PO QID PRN PRN Reason: Pain, Moderate Last Admin: 06/29/25 04:38 Dose: 10 mg Documented By: AAYUSH Potassium Chloride (Potassium Chloride Er 20 Meq Tab.Er.Prt) 20 meq PO DAILY [facility] Last Admin: 06/29/25 09:21 Dose: 20 meq Documented By: BRIAN Sodium Chloride (0.9 % Sodium Chloride Flush 3 Ml Syringe) 3 ml IVFLUSH QSHIFT [facility] Last Admin: 06/29/25 16:20 Dose: 3 ml Documented By: BRIAN Labs 06/29/25 07:11 06/29/25 07:11 Labs: Laboratory Results - last 24 hr 06/29/25 07:11 MCV 90.2 MCH 29.8 MCHC 33.1 RDW 12.0 Plt Count 204 D MPV 9.4 Immature Gran % (Auto) 0.3 Neut % (Auto) 80.3 H Lymph % (Auto) 13.2 L [place] % (Auto) 5.9 Eos % (Auto) 0.2 Baso % (Auto) 0.1 Lymph # (Auto) 1.4 [place] # (Auto) 0.6 Eos # (Auto) 0.0 Baso # (Auto) 0.0 Abs Immat Gran (auto) 0.03 Absolute Neuts (auto) 8.4 H Absolute Nucleated RBC 0.000 Nucleated RBC % (auto) 0.0 Anion Gap 15 Estim Creat Clear Calc 77.7 Estimated GFR > 60 Random Glucose 152 H Calcium 8.7 Magnesium 2.4 Microbiology Microbiology Results: Microbiology 06/27/25 10:48 Blood Culture - Preliminary Blood - Venous No growth after 48 hours. 06/27/25 10:43 Blood Culture - Preliminary Blood - Venous No growth after 48 hours. Assessment and Plan (1) COPD (chronic obstructive pulmonary disease): Status: Acute (2) Acute exacerbation of chronic obstructive pulmonary disease (COPD): Status: Acute (3) Acute and chronic respiratory failure with hypoxia: Status: Acute Plan 70 year old women admitted with acute on chronic respiratory failure secondary to COPD exacerbation and pneumonia, found to be positive for FLU Acute on chronic respiratory failure secondary to COPD exacerbation, influenza A and mild pneumonia Patient on baseline 2-4 L of oxygen cxr showing possible pna continue Rocephin and azithromycin IV solumedrol schedule to 8 hrs scheduled duonebs and PRN Tamiflu x 5 days for flu A continue oxygen 4 liters for now incentive spirometer and flutter valve ordered Elevated blood sugars Likely secondary to steroid use A1c 6.6 Hypokalemia Repleted with oral potassium Hypertension continue HCTZ and amlodipine Anxiety continue lexapro and hydroxyzine [place] [facility] [place] continue pain medications DVT prophylaxis with heparin Full code Quality Stroke Does the patient have a stroke diagnosis?: No VTE Prior VTE?: No VTE Risk Level:: Medical - moderate - high VTE Device Contraindication: Treatment Not Indicated VTE Drug Contraindication: N/A - Med Ordered
[2025-06-30] VITALS (14 sets, daily range): BP systolic 148–197; BP diastolic 69–87; PULSE 100–112; RESP 12–20; TEMP 36.2–37; O2SAT 90–93
[2025-06-30] MEDS: oxyCODONE HCl Immed Release 5 MG TABLET 10 MG PO ×3 (04:57→19:40)
[2025-06-30] MEDS: levalbuterol HCL 1.25 MG, Ipratropium Bromide 0.5 MG INHALE ×7 (06:09→23:29)
[2025-06-30] MEDS: Potassium Chloride ER 20 MEQ TAB.ER.PRT PO (09:40)
[2025-06-30] MEDS: guaiFENesin LA 600 MG TAB.ER.12H PO ×2 (09:41→20:52)
[2025-06-30] MEDS: 0.9 % Sodium Chloride Flush 3 ML SYRINGE IVFLUSH ×3 (09:41→20:51)
[2025-06-30] MEDS: Morphine Sulfate ER 15 MG TABLET.ER PO ×2 (09:41→20:51)
--- NOTE | 2025-06-30 12:05 | P.PNIM_ITS ---
Subjective Subjective Date of Service: 06/30/25 Interval History: Patient seen and examined at bedside this morning, patient states that her breathing has improved, however persists with wheezing, has been using flutter valve as well as incentive spirometer. Review of Systems Review of Systems: Yes all other systems are reviewed and are negative Physical Exam 2 Exam: Exam: General: AxOx3, No acute distress Head: AT/NC ENT: Moist mucous membranes Neck: supple CVS; RRR, S1 S2 normal Lungs: bilateral wheezing Abd: Soft non tender, non distended Ext: No edema and no calf tenderness MSK: moving all 4 limbs Skin: No cyanosis or edema Psych: Cooperative with exam Neurology: no focal deficit Vital Signs: Vital Signs: Last Vital Signs Temp 97.1 F 06/30/25 08:00 Pulse 108 H 06/30/25 08:00 Resp 18 06/30/25 08:00 BP 156/69 H 06/30/25 08:00 Pulse Ox 90 L 06/30/25 08:00 O2 Del Method Oxymask 06/30/25 08:00 O2 Flow Rate 4.0 06/30/25 08:00 Oxygen Flow Rate 4 06/27/25 06:22 BMI result Body Mass Index 25.8 Objective Data Active Medications Acetaminophen (Acetaminophen 325 Mg Tablet) 650 mg PO Q6H PRN PRN Reason: Pain, Mild 1-3,fever,headache Albuterol/Ipratropium (Albuterol/Iprat 2.5/0.5mg 3 Ml Ampul.Neb) 3 ml INHALE RQ4H WHILE AWAKE PRN PRN Reason: Shortness of Breath/Wheezing Last Admin: 06/29/25 12:09 Dose: 3 ml Documented By: HORACIO Amlodipine Besylate (Amlodipine Besylate 10 Mg Tablet) 10 mg PO DAILY [facility]; Protocol Last Admin: 06/30/25 09:41 Dose: 10 mg Documented By: BRIAN Budesonide (Budesonide 0.5 Mg/2 Ml Ampul.Neb) 0.5 mg INHALE RBID [facility] Last Admin: 06/30/25 07:55 Dose: 0.5 mg Documented By: PAT Calcium Carbonate (Calcium Carbonate 750 Mg Tab.Chew) 750 mg PO Q4H PRN PRN Reason: Heartburn Levalbuterol HCl 1.25 mg/ (Ipratropium [place] 0.5 mg) 0 mg INHALE RQ6H [facility] Docusate Sodium (Docusate Sodium 100 Mg Capsule) 100 mg PO DAILY [facility] Last Admin: 06/30/25 09:41 Dose: Not Given Documented By: BRIAN Non-Admin Reason: Patient Refused Escitalopram Oxalate (Escitalopram Oxalate 10 Mg Tablet) 10 mg PO DAILY [facility] Last Admin: 06/30/25 09:41 Dose: 10 mg Documented By: BRIAN Guaifenesin (Guaifenesin [place] 600 Mg Tab.Er.12h) 600 mg PO BID [facility] Last Admin: 06/30/25 09:41 Dose: 600 mg Documented By: BRIAN Heparin Sodium (Porcine) (Heparin Sodium,Porcine 5,000 Unit/Ml Vial) 5,000 unit SUBCUT Q12H [facility] Last Admin: 06/30/25 11:44 Dose: 5,000 unit Documented By: BRIAN Hydralazine HCl (Hydralazine Hcl 20 Mg/Ml Vial) 10 mg IVPUSH Q6H PRN; Protocol PRN Reason: SBP > 160 Last Admin: 06/29/25 03:26 Dose: 10 mg Documented By: AAYUSH Hydrochlorothiazide (Hydrochlorothiazide 12.5 Mg Tablet) 12.5 mg PO DAILY [facility]; Protocol Last Admin: 06/30/25 09:41 Dose: 12.5 mg Documented By: BRIAN Hydroxyzine HCl (Hydroxyzine Hcl 25 Mg Tablet) 25 mg PO TID PRN PRN Reason: Anxiety Last Admin: 06/29/25 20:26 Dose: 25 mg Documented By: JARVIS Ceftriaxone Sodium 1 gm/ (Sodium Chloride) 50 mls @ 100 mls/hr IV Q24H [facility] Last Admin: 06/30/25 11:44 Dose: 100 mls/hr Documented By: BRIAN Azithromycin 500 mg/ Sodium (Chloride) 250 mls @ 125 mls/hr IV Q24H [facility] Last Infusion: 06/29/25 14:18 Dose: Infused Documented By: BRIAN Magnesium Hydroxide (Milk Of Magnesia 30 Ml Oral.Susp) 30 ml PO DAILY PRN PRN Reason: Constipation Melatonin (Melatonin 3 Mg Tablet) 6 mg PO BEDTIME PRN PRN Reason: Insomnia Methylprednisolone Sodium Succinate (Methylprednisolone Sod Succ 40 Mg/Ml Vial) 40 mg IVPUSH TID [facility] Last Admin: 06/30/25 09:45 Dose: 40 mg Documented By: BRIAN Morphine Sulfate (Morphine Sulfate Er 15 Mg Tablet.Er) 15 mg PO BID [facility] Last Admin: 06/30/25 09:41 Dose: 15 mg Documented By: BRIAN Multivitamins/Vitamin C (Multivitamin Tablet) 1 tab PO DAILY [facility] Last Admin: 06/30/25 09:41 Dose: 1 tab Documented By: BRIAN Naloxone HCl (Naloxone Hcl 0.4 Mg/Ml Vial) 0.4 mg SUBCUT Q3M PRN PRN Reason: overdose Ondansetron HCl (Ondansetron Hcl 4 Mg/2 Ml Vial) 4 mg IVPUSH Q8H PRN PRN Reason: Nausea and Vomiting Oseltamivir Phosphate (Oseltamivir Phosphate 75 Mg Capsule) 75 mg PO Q12H [facility] Stop: 07/01/25 21:01 Last Admin: 06/30/25 09:41 Dose: 75 mg Documented By: BRIAN Oxycodone HCl (Oxycodone Hcl Immed Release 5 Mg Tablet) 10 mg PO QID PRN PRN Reason: Pain, Moderate Last Admin: 06/30/25 04:57 Dose: 10 mg Documented By: JARVIS Potassium Chloride (Potassium Chloride Er 20 Meq Tab.Er.Prt) 20 meq PO DAILY [facility] Last Admin: 06/30/25 09:40 Dose: 20 meq Documented By: BRIAN Sodium Chloride (0.9 % Sodium Chloride Flush 3 Ml Syringe) 3 ml IVFLUSH QSHIFT [facility] Last Admin: 06/30/25 09:41 Dose: 3 ml Documented By: BRIAN Labs 06/29/25 07:11 06/29/25 07:11 Microbiology Microbiology Results: Microbiology 06/27/25 10:48 Blood Culture - Preliminary Blood - Venous No growth after 48 hours. 06/27/25 10:43 Blood Culture - Preliminary Blood - Venous No growth after 48 hours. Assessment and Plan (1) Influenza A: Status: Acute (2) Acute and chronic respiratory failure with hypoxia: Status: Acute (3) Acute exacerbation of chronic obstructive pulmonary disease (COPD): Status: Acute Plan 70 year old women admitted with acute on chronic respiratory failure secondary to COPD exacerbation and pneumonia, found to be positive for FLU Acute on chronic respiratory failure secondary to COPD exacerbation, influenza A and mild pneumonia Patient on baseline 2-4 L of oxygen cxr showing possible pna continue Rocephin and azithromycin IV solumedrol schedule 8 hrs scheduled duonebs q4hrs and PRN Tamiflu x 5 days for flu A continue supplemental oxygen for SpO2 greater than 88% incentive spirometer and flutter valve continue pulmonology consulted Elevated blood sugars Likely secondary to steroid use A1c 6.6 continue ISS Hypertension continue HCTZ and amlodipine Anxiety, chronic continue lexapro and hydroxyzine Wrist fracture in March Tx at [facility] orthopedics continue pain medications DVT prophylaxis with heparin Full code Quality Stroke Does the patient have a stroke diagnosis?: No VTE Prior VTE?: No VTE Risk Level:: Medical - moderate - high VTE Device Contraindication: Treatment Not Indicated VTE Drug Contraindication: N/A - Med Ordered
--- NOTE | 2025-06-30 12:42 | PC.NURSE ---
Patient up to bedside commode with nursing on 3L simple mask, patient desat 84% when returned to bed. Increased O2 to 4L, slow deep breaths, patient recovered up to 92% on 4L simple mask.
--- NOTE | 2025-06-30 13:11 | PM.CNPUL ---
History of Present Illness History of Present Illness Consult date: 06/30/25 Chief complaint: PNA COPD Narrative: 70-year-old with underlying severe COPD on 3 L of supplemental oxygen hospitalized on 06/27/2025 with COPD exacerbation secondary to influenza associated with worsening hypoxemia. Now improving slowly. Review of Systems Constitutional: Constitutional: Denies daytime sleepiness, Denies excessive sweating, Denies fatigue, Denies fever(s), Denies lethargy, Denies malaise, Denies night sweats, Denies snoring and Denies weight loss Eyes: Eyes: Denies blurry vision and Denies itchy eyes ENT: Denies nasal congestion, Denies post nasal drip, Denies sinus pain, Denies sinus pressure and Denies other ( Thrush) Cardiovascular: Cardiovascular: Denies chest pain, Denies pedal edema, Reports dyspnea, Reports dyspnea on exertion, Denies orthopnea and Denies paroxysmal nocturnal dyspnea Respiratory: Respiratory: Reports cough, Denies hemoptysis, Denies excessive phlegm production, Reports dyspnea, Reports dyspnea on exertion, Denies snoring and Denies wheezing Gastrointestinal: Gastrointestinal: Denies abdominal pain and Denies heartburn Musculoskeletal: Musculoskeletal: Denies myalgias, Denies arthralgias and Denies joint swelling Integumentary/Breasts: Skin/Breast: Denies rash Neurologic: Denies memory loss and Denies seizure-like activity Psychiatric: Psychiatric: Denies abnormal sleep pattern, Denies anxiety and Denies memory loss Endocrine: Endocrine: Denies excessive sweating, Denies fatigue and Denies heat intolerance Hematologic/Lymphatic: Hematologic/Lymphatic: Denies easy bruising Allergic/Immunologic: Allergic/Immunologic: Denies itchy eyes, Denies seasonal rhinorrhea and Denies wheezing PMFSH Past Medical History Medical History COPD (chronic obstructive pulmonary disease) Opioid dependence Chronic low back pain Pulmonary nodule Surgical History Surgical History History of tonsillectomy H/O: section History of cholecystectomy Social History Social History Household Members: Spouse and Family Housing: House Do you presently have visiting nurse or other home services: No Alcohol intake: current Alcohol intake frequency: a few times a month Patient Tobacco Use Status: Former Tobacco user Tobacco use type: Cigarette Cigarette Packs Per Day: 1 Years Smoked: 30 service: No Current occupational status: retired 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 Meds Allergies Allergy/AdvReac Type Severity Reaction Status Date / Time No Known Allergies Allergy Verified 06/27/25 06:35 Active Medications: Current Medications Acetaminophen (Acetaminophen 325 Mg Tablet) 650 mg PO Q6H PRN PRN Reason: Pain, Mild 1-3,fever,headache Albuterol/Ipratropium (Albuterol/Iprat 2.5/0.5mg 3 Ml Ampul.Neb) 3 ml INHALE RQ4H WHILE AWAKE PRN PRN Reason: Shortness of Breath/Wheezing Last Admin: 06/29/25 12:09 Dose: 3 ml Amlodipine Besylate (Amlodipine Besylate 10 Mg Tablet) 10 mg PO DAILY [facility]; Protocol Last Admin: 06/30/25 09:41 Dose: 10 mg Budesonide (Budesonide 0.5 Mg/2 Ml Ampul.Neb) 0.5 mg INHALE RBID [facility] Last Admin: 06/30/25 07:55 Dose: 0.5 mg Calcium Carbonate (Calcium Carbonate 750 Mg Tab.Chew) 750 mg PO Q4H PRN PRN Reason: Heartburn Levalbuterol HCl 1.25 mg/ (Ipratropium [place] 0.5 mg) 0 mg INHALE RQ4H [facility] Docusate Sodium (Docusate Sodium 100 Mg Capsule) 100 mg PO DAILY [facility] Last Admin: 06/30/25 09:41 Dose: Not Given Escitalopram Oxalate (Escitalopram Oxalate 10 Mg Tablet) 10 mg PO DAILY [facility] Last Admin: 06/30/25 09:41 Dose: 10 mg Guaifenesin (Guaifenesin [place] 600 Mg Tab.Er.12h) 600 mg PO BID [facility] Last Admin: 06/30/25 09:41 Dose: 600 mg Heparin Sodium (Porcine) (Heparin Sodium,Porcine 5,000 Unit/Ml Vial) 5,000 unit SUBCUT Q12H [facility] Last Admin: 06/30/25 11:44 Dose: 5,000 unit Hydralazine HCl (Hydralazine Hcl 20 Mg/Ml Vial) 10 mg IVPUSH Q6H PRN; Protocol PRN Reason: SBP > 160 Last Admin: 06/29/25 03:26 Dose: 10 mg Hydrochlorothiazide (Hydrochlorothiazide 12.5 Mg Tablet) 12.5 mg PO DAILY [facility]; Protocol Last Admin: 06/30/25 09:41 Dose: 12.5 mg Hydroxyzine HCl (Hydroxyzine Hcl 25 Mg Tablet) 25 mg PO TID PRN PRN Reason: Anxiety Last Admin: 06/29/25 20:26 Dose: 25 mg Ceftriaxone Sodium 1 gm/ (Sodium Chloride) 50 mls @ 100 mls/hr IV Q24H [facility] Last Infusion: 06/30/25 12:14 Dose: Infused Azithromycin 500 mg/ Sodium (Chloride) 250 mls @ 125 mls/hr IV Q24H [facility] Last Admin: 06/30/25 12:36 Dose: 125 mls/hr Magnesium Hydroxide (Milk Of Magnesia 30 Ml Oral.Susp) 30 ml PO DAILY PRN PRN Reason: Constipation Melatonin (Melatonin 3 Mg Tablet) 6 mg PO BEDTIME PRN PRN Reason: Insomnia Methylprednisolone Sodium Succinate (Methylprednisolone Sod Succ 40 Mg/Ml Vial) 40 mg IVPUSH TID [facility] Last Admin: 06/30/25 09:45 Dose: 40 mg Morphine Sulfate (Morphine Sulfate Er 15 Mg Tablet.Er) 15 mg PO BID [facility] Last Admin: 06/30/25 09:41 Dose: 15 mg Multivitamins/Vitamin C (Multivitamin Tablet) 1 tab PO DAILY [facility] Last Admin: 06/30/25 09:41 Dose: 1 tab Naloxone HCl (Naloxone Hcl 0.4 Mg/Ml Vial) 0.4 mg SUBCUT Q3M PRN PRN Reason: overdose Ondansetron HCl (Ondansetron Hcl 4 Mg/2 Ml Vial) 4 mg IVPUSH Q8H PRN PRN Reason: Nausea and Vomiting Oseltamivir Phosphate (Oseltamivir Phosphate 75 Mg Capsule) 75 mg PO Q12H [facility] Stop: 07/01/25 21:01 Last Admin: 06/30/25 09:41 Dose: 75 mg Oxycodone HCl (Oxycodone Hcl Immed Release 5 Mg Tablet) 10 mg PO QID PRN PRN Reason: Pain, Moderate Last Admin: 06/30/25 04:57 Dose: 10 mg Potassium Chloride (Potassium Chloride Er 20 Meq Tab.Er.Prt) 20 meq PO DAILY [facility] Last Admin: 06/30/25 09:40 Dose: 20 meq Sodium Chloride (0.9 % Sodium Chloride Flush 3 Ml Syringe) 3 ml IVFLUSH QSHIFT [facility] Last Admin: 06/30/25 09:41 Dose: 3 ml Home Medications ?Medication ?Instructions ?Recorded ?Confirmed ?Last Taken ?Type hydrochlorothiazide 12.5 mg tablet 12.5 mg PO DAILY 05/21/22 06/27/25 06/26/25 History morphine 15 mg tablet,extended 15 mg PO BID 05/21/22 06/27/25 06/26/25 History release oxycodone 10 mg tablet 10 mg PO QID PRN Pain, Moderate 05/21/22 06/27/25 06/26/25 History albuterol sulfate 90 mcg/actuation 2 puff inhalation Q4H PRN 11/11/23 06/27/25 Unknown History aerosol inhaler shortness of breath or wheezing alendronate 70 mg tablet 70 mg PO MO@0900 11/11/23 06/27/25 06/26/25 History amlodipine 10 mg tablet 10 mg PO DAILY 11/11/23 06/27/25 06/26/25 History docusate sodium 100 mg capsule 100 mg PO DAILY 11/11/23 06/27/25 06/26/25 History ibuprofen 800 mg tablet 800 mg PO TID PRN Pain 11/11/23 06/27/25 Unknown History multivitamin 1 tab PO DAILY 11/11/23 06/27/25 06/26/25 History naloxone 0.4 mg/mL injection 0.4 mg subcut Q3M PRN overdose 11/11/23 06/27/25 Unknown History solution escitalopram oxalate 10 mg tablet 10 mg PO DAILY 06/27/25 06/27/25 06/26/25 History fluticasone propionate 50 2 spray intranasal BEDTIME 06/27/25 06/27/25 06/26/25 History mcg/actuation nasal spray,suspension hydroxyzine HCl 25 mg tablet 25 mg PO TID PRN Anxiety 06/27/25 06/27/25 Unknown History potassium chloride 20 mEq 20 meq PO DAILY 06/27/25 06/27/25 06/26/25 History tablet,extended release prednisone 20 mg tablet 40 mg PO DAILY 06/27/25 06/27/25 06/26/25 History Physical Exam Vital Signs: Vital Signs: Last Vital Signs Temp 97.4 F 06/30/25 12:00 Pulse 107 H 06/30/25 12:07 Resp 12 06/30/25 12:07 BP 174/76 H 06/30/25 12:00 Pulse Ox 93 06/30/25 12:00 O2 Del Method Oxymask 06/30/25 12:00 O2 Flow Rate 4.0 06/30/25 12:00 Oxygen Flow Rate 4 06/27/25 06:22 BMI result Body Mass Index 25.8 Const: General: no acute distress, alert and awake Eyes: Sclerae: sclerae normal EOM: EOMs intact bilaterally Neck: Neck: Yes no lymphadenopathy, Yes trachea midline and Yes supple Resp: Effort & Inspection: normal respiratory effort and no respiratory distress Auscultation: wheezes (Expiratory bilateral) Cardio: Rate: tachycardic Rhythm: regular rhythm Heart sounds: no gallops, no murmurs and no rubs GI: Palpation (GI): Soft to palpation and Other GI palpation findings present ( Nontender) Auscultation: normal bowel sounds Extrem: General: Yes no pedal edema, No clubbing and No cyanosis Results Laboratory Findings 06/29/25 07:11 06/29/25 07:11 Abnormal lab findings: Abnormal Labs 06/27/25 06/27/25 06/27/25 06:43 06:50 08:34 WBC Hct Plt Count 146 L Immature Gran % (Auto) 0.5 H Neut % (Auto) 80.2 H Lymph % (Auto) 11.6 L Lymph # (Auto) 0.9 L Abs Immat Gran (auto) 0.04 H Absolute Neuts (auto) ABG pO2 at Pt Temp ABG HCO3 VBG pH 7.47 H VBG HCO3 45 H Potassium 3.2 L D Chloride 91 L Carbon Dioxide 37 H BUN 17 H Random Glucose 282 H Hemoglobin A1c % Lactic Acid Lactic Acid F/U @ 2Hr Lactic Acid F/U @ 4Hr AST 37 H ALT 43 H Influenza Type A (SHANIA) Positive A Influenza A (RT-PCR) Influenza A (H3) PCR 06/27/25 06/27/25 06/27/25 10:43 13:00 15:54 WBC Hct Plt Count Immature Gran % (Auto) Neut % (Auto) Lymph % (Auto) Lymph # (Auto) Abs Immat Gran (auto) Absolute Neuts (auto) ABG pO2 at Pt Temp ABG HCO3 VBG pH VBG HCO3 Potassium Chloride Carbon Dioxide BUN Random Glucose Hemoglobin A1c % Lactic Acid 2.9 H* Lactic Acid F/U @ 2Hr 6.7 H* Lactic Acid F/U @ 4Hr 6.7 H* AST ALT Influenza Type A (SHANIA) Influenza A (RT-PCR) Influenza A (H3) PCR 06/27/25 06/27/25 06/28/25 21:35 21:47 02:44 WBC Hct Plt Count Immature Gran % (Auto) Neut % (Auto) Lymph % (Auto) Lymph # (Auto) Abs Immat Gran (auto) Absolute Neuts (auto) ABG pO2 at Pt Temp 110 H ABG HCO3 27 H VBG pH VBG HCO3 Potassium Chloride 95 L Carbon Dioxide 35 H BUN Random Glucose 206 H Hemoglobin A1c % Lactic Acid 2.4 H* Lactic Acid F/U @ 2Hr Lactic Acid F/U @ 4Hr AST ALT Influenza Type A (SHANIA) Influenza A (RT-PCR) Detected A Influenza A (H3) PCR Detected A 06/28/25 06/29/25 05:22 07:11 WBC 4.5 L Hct 47.2 H Plt Count 155 L Immature Gran % (Auto) 0.7 H Neut % (Auto) 84.6 H 80.3 H Lymph % (Auto) 9.8 L 13.2 L Lymph # (Auto) 0.4 L Abs Immat Gran (auto) Absolute Neuts (auto) 8.4 H ABG pO2 at Pt Temp ABG HCO3 VBG pH VBG HCO3 Potassium Chloride 91 L 95 L Carbon Dioxide 39 H 36 H BUN 21 H Random Glucose 215 H 152 H Hemoglobin A1c % 6.6 H Lactic Acid Lactic Acid F/U @ 2Hr Lactic Acid F/U @ 4Hr AST ALT Influenza Type A (SHANIA) Influenza A (RT-PCR) Influenza A (H3) PCR Microbiology: Microbiology 06/27/25 10:48 Blood - Venous Blood Culture - Preliminary No growth after 48 hours. 06/27/25 10:43 Blood - Venous Blood Culture - Preliminary No growth after 48 hours. Assessment and Plan (1) Influenza A: Status: Acute (2) COPD (chronic obstructive pulmonary disease): Qualifiers: COPD type: COPD with acute exacerbation Qualified Code(s): J44.1 - Chronic obstructive pulmonary disease with (acute) exacerbation Status: Acute (3) Acute and chronic respiratory failure with hypoxia: Status: Acute Plan Impression: 70-year-old lady with underlying supplemental oxygen dependent COPD admitted with COPD exacerbation and worsening hypoxemia secondary to influenza a. Recovering slowly. Recommendations: Agree with current therapeutic regimen including systemic glucocorticoids, nebulized bronchodilators, and empiric coverage for possible bacterial superinfection/community-acquired pneumonia. Procedures Date of Service Date of Service: 06/30/25
--- NOTE | 2025-06-30 13:39 | MHC.CM.PN ---
EMR REVIEWED AND PER MD ROUNDS, PT HAS NOT BEEN MEDICALLY CLEARED FOR DC (HYPOXIA, INCREASED 02 REQUIREMENTS, FLU A) CM WILL CONTINUE TO FOLLOW FOR ANY CHANGE TO DC NEEDS/PLAN.
[2025-07-01] VITALS (10 sets, daily range): BP systolic 124–177; BP diastolic 69–85; PULSE 94–110; RESP 14–20; TEMP 36–36.8; O2SAT 90–97
[2025-07-01] MEDS: oxyCODONE HCl Immed Release 5 MG TABLET 10 MG PO (05:28)
--- NOTE | 2025-07-01 05:34 | PC.NURSE ---
06/30/251939 BP-197/87 medicated with hydralazine 10mg IV. 2049 BP-180/80.2333 BP-166/79
[2025-07-01] MEDS: levalbuterol HCL 1.25 MG, Ipratropium Bromide 0.5 MG INHALE ×4 (08:06→19:25)
[2025-07-01] MEDS: Potassium Chloride ER 20 MEQ TAB.ER.PRT PO (08:20)
[2025-07-01] MEDS: guaiFENesin LA 600 MG TAB.ER.12H PO ×2 (08:20→20:49)
[2025-07-01] MEDS: 0.9 % Sodium Chloride Flush 3 ML SYRINGE IVFLUSH ×2 (08:21→20:50)
[2025-07-01] MEDS: Morphine Sulfate ER 15 MG TABLET.ER PO ×2 (08:21→20:49)
--- NOTE | 2025-07-01 12:00 | P.PNIM_ITS ---
Subjective Subjective Date of Service: 07/01/25 Interval History: Patient seen and examined at bedside this morning, patient states that she feeling better, breathing has improved. Has been using flutter valve and incentive spirometer. Physical Exam 2 Exam: Exam: General: AxOx3, No acute distress Head: AT/NC ENT: Moist mucous membranes Neck: supple CVS; RRR, S1 S2 normal Lungs: bilateral wheezes, improving Abd: Soft non tender, non distended Ext: No edema and no calf tenderness MSK: moving all 4 limbs Skin: No cyanosis or edema Psych: Cooperative with exam Neurology: no focal deficit Vital Signs: Vital Signs: Last Vital Signs Temp 97.6 F 07/01/25 07:53 Pulse 94 07/01/25 11:12 Resp 18 07/01/25 11:12 BP 152/69 H 07/01/25 07:53 Pulse Ox 90 L 07/01/25 07:53 O2 Del Method Oxymask 07/01/25 07:53 O2 Flow Rate 4.0 07/01/25 07:53 Oxygen Flow Rate 4 06/27/25 06:22 BMI result Body Mass Index 25.8 Objective Data Active Medications Acetaminophen (Acetaminophen 325 Mg Tablet) 650 mg PO Q6H PRN PRN Reason: Pain, Mild 1-3,fever,headache Albuterol/Ipratropium (Albuterol/Iprat 2.5/0.5mg 3 Ml Ampul.Neb) 3 ml INHALE RQ4H WHILE AWAKE PRN PRN Reason: Shortness of Breath/Wheezing Last Admin: 06/29/25 12:09 Dose: 3 ml Documented By: HORACIO Amlodipine Besylate (Amlodipine Besylate 10 Mg Tablet) 10 mg PO DAILY [facility]; Protocol Last Admin: 07/01/25 08:21 Dose: 10 mg Documented By: PRAMOD Budesonide (Budesonide 0.5 Mg/2 Ml Ampul.Neb) 0.5 mg INHALE RBID [facility] Last Admin: 07/01/25 08:06 Dose: 0.5 mg Documented By: MARICRUZ Calcium Carbonate (Calcium Carbonate 750 Mg Tab.Chew) 750 mg PO Q4H PRN PRN Reason: Heartburn Levalbuterol HCl 1.25 mg/ (Ipratropium [place] 0.5 mg) 0 mg INHALE RQ4H [facility] Last Admin: 07/01/25 11:10 Dose: 1 dose Documented By: TONJASAARON Docusate Sodium (Docusate Sodium 100 Mg Capsule) 100 mg PO DAILY [facility] Last Admin: 07/01/25 08:21 Dose: 100 mg Documented By: PRAMOD Escitalopram Oxalate (Escitalopram Oxalate 10 Mg Tablet) 10 mg PO DAILY [facility] Last Admin: 07/01/25 08:21 Dose: 10 mg Documented By: PRAMOD Guaifenesin (Guaifenesin [place] 600 Mg Tab.Er.12h) 600 mg PO BID [facility] Last Admin: 07/01/25 08:20 Dose: 600 mg Documented By: PRAMOD Heparin Sodium (Porcine) (Heparin Sodium,Porcine 5,000 Unit/Ml Vial) 5,000 unit SUBCUT Q12H [facility] Last Admin: 07/01/25 11:14 Dose: 5,000 unit Documented By: PRAMOD Hydralazine HCl (Hydralazine Hcl 20 Mg/Ml Vial) 10 mg IVPUSH Q6H PRN; Protocol PRN Reason: SBP > 160 Last Admin: 06/30/25 19:40 Dose: 10 mg Documented By: ROSS Hydrochlorothiazide (Hydrochlorothiazide 12.5 Mg Tablet) 12.5 mg PO DAILY [facility]; Protocol Last Admin: 07/01/25 08:21 Dose: 12.5 mg Documented By: PRAMOD Hydroxyzine HCl (Hydroxyzine Hcl 25 Mg Tablet) 25 mg PO TID PRN PRN Reason: Anxiety Last Admin: 06/30/25 22:55 Dose: 25 mg Documented By: ROSS Ceftriaxone Sodium 1 gm/ (Sodium Chloride) 50 mls @ 100 mls/hr IV Q24H [facility] Last Infusion: 07/01/25 11:46 Dose: Infused Documented By: PRAMOD Azithromycin 500 mg/ Sodium (Chloride) 250 mls @ 125 mls/hr IV Q24H [facility] Last Admin: 07/01/25 11:47 Dose: 125 mls/hr Documented By: PRAMOD Magnesium Hydroxide (Milk Of Magnesia 30 Ml Oral.Susp) 30 ml PO DAILY PRN PRN Reason: Constipation Melatonin (Melatonin 3 Mg Tablet) 6 mg PO BEDTIME PRN PRN Reason: Insomnia Methylprednisolone Sodium Succinate (Methylprednisolone Sod Succ 40 Mg/Ml Vial) 40 mg IVPUSH BID [facility] Morphine Sulfate (Morphine Sulfate Er 15 Mg Tablet.Er) 15 mg PO BID [facility] Last Admin: 07/01/25 08:21 Dose: 15 mg Documented By: PRAMOD Multivitamins/Vitamin C (Multivitamin Tablet) 1 tab PO DAILY [facility] Last Admin: 07/01/25 08:21 Dose: 1 tab Documented By: PRAMOD Naloxone HCl (Naloxone Hcl 0.4 Mg/Ml Vial) 0.4 mg SUBCUT Q3M PRN PRN Reason: overdose Ondansetron HCl (Ondansetron Hcl 4 Mg/2 Ml Vial) 4 mg IVPUSH Q8H PRN PRN Reason: Nausea and Vomiting Oseltamivir Phosphate (Oseltamivir Phosphate 75 Mg Capsule) 75 mg PO Q12H [facility] Stop: 07/01/25 21:01 Last Admin: 07/01/25 08:20 Dose: 75 mg Documented By: PRAMOD Oxycodone HCl (Oxycodone Hcl Immed Release 5 Mg Tablet) 10 mg PO QID PRN PRN Reason: Pain, Moderate Last Admin: 07/01/25 05:28 Dose: 10 mg Documented By: ROSS Potassium Chloride (Potassium Chloride Er 20 Meq Tab.Er.Prt) 20 meq PO DAILY [facility] Last Admin: 07/01/25 08:20 Dose: 20 meq Documented By: PRAMOD Sodium Chloride (0.9 % Sodium Chloride Flush 3 Ml Syringe) 3 ml IVFLUSH QSHIFT [facility] Last Admin: 07/01/25 08:21 Dose: 3 ml Documented By: PRAMOD Labs 06/29/25 07:11 06/29/25 07:11 Assessment and Plan (1) COPD (chronic obstructive pulmonary disease): Status: Acute (2) Acute exacerbation of chronic obstructive pulmonary disease (COPD): Status: Acute Plan 70 year old women admitted with acute on chronic respiratory failure secondary to COPD exacerbation and pneumonia, found to be positive for FLU Acute on chronic respiratory failure secondary to COPD exacerbation, influenza A and mild pneumonia Patient on baseline 2-4 L of oxygen cxr showing possible pna continue Rocephin and azithromycin IV solumedrol decreased to every 12 hrs scheduled duonebs q4hrs and PRN Tamiflu x 5 days for flu A continue supplemental oxygen for SpO2 greater than 88% incentive spirometer and flutter valve continue pulmonology consulted, will continue w/ present management Elevated blood sugars Likely secondary to steroid use A1c 6.6 continue ISS Hypertension continue HCTZ and amlodipine Anxiety, chronic continue lexapro and hydroxyzine Wrist fracture [place] [facility] [place] continue pain medications DVT prophylaxis with heparin Full code Quality Stroke Does the patient have a stroke diagnosis?: No VTE Prior VTE?: No VTE Risk Level:: Medical - moderate - high VTE Device Contraindication: Treatment Not Indicated VTE Drug Contraindication: N/A - Med Ordered
[2025-07-02] VITALS (10 sets, daily range): BP systolic 140–165; BP diastolic 70–86; PULSE 92–112; RESP 18–20; TEMP 36.1–36.6; O2SAT 91–95
[2025-07-02] MEDS: oxyCODONE HCl Immed Release 5 MG TABLET 10 MG PO ×2 (03:50→12:29)
[2025-07-02] MEDS: levalbuterol HCL 1.25 MG, Ipratropium Bromide 0.5 MG INHALE ×4 (04:06→15:24)
[2025-07-02] MEDS: Potassium Chloride ER 20 MEQ TAB.ER.PRT PO (08:47)
[2025-07-02] MEDS: Morphine Sulfate ER 15 MG TABLET.ER PO ×2 (08:47→20:14)
[2025-07-02] MEDS: guaiFENesin LA 600 MG TAB.ER.12H PO ×2 (08:47→20:15)
[2025-07-02] MEDS: 0.9 % Sodium Chloride Flush 3 ML SYRINGE IVFLUSH ×2 (08:48→20:15)
--- NOTE | 2025-07-02 12:43 | MHC.CM.PN ---
Per MD rounds patient not medically cleared for dc. CM will continue to follow.
--- NOTE | 2025-07-02 16:01 | P.PNIM_ITS ---
Subjective Subjective Date of Service: 07/02/25 Interval History: Patient seen examined at bedside this morning, patient states that she is feeling better, breathing has improved, blood pressure elevated yesterday. Review of Systems Review of Systems: Yes all other systems are reviewed and are negative Physical Exam 2 Exam: Exam: General: AxOx3, No acute distress Head: AT/NC ENT: Moist mucous membranes Neck: supple CVS; RRR, S1 S2 normal Lungs: Coarse breath sounds, wheezing minimal Abd: Soft non tender, non distended Ext: No edema and no calf tenderness MSK: moving all 4 limbs Skin: No cyanosis or edema Psych: Cooperative with exam Neurology: no focal deficit Vital Signs: Vital Signs: Last Vital Signs Temp 97.1 F 07/02/25 12:00 Pulse 111 H 07/02/25 15:27 Resp 18 07/02/25 15:27 BP 144/70 H 07/02/25 12:00 Pulse Ox 91 L 07/02/25 12:00 O2 Del Method Nasal Cannula 07/02/25 12:00 O2 Flow Rate 3.0 07/02/25 12:00 Oxygen Flow Rate 4 06/27/25 06:22 BMI result Body Mass Index 25.8 Objective Data Active Medications Acetaminophen (Acetaminophen 325 Mg Tablet) 650 mg PO Q6H PRN PRN Reason: Pain, Mild 1-3,fever,headache Albuterol/Ipratropium (Albuterol/Iprat 2.5/0.5mg 3 Ml Ampul.Neb) 3 ml INHALE RQ4H WHILE AWAKE PRN PRN Reason: Shortness of Breath/Wheezing Last Admin: 06/29/25 12:09 Dose: 3 ml Documented By: HORACIO Amlodipine Besylate (Amlodipine Besylate 10 Mg Tablet) 10 mg PO DAILY [facility]; Protocol Last Admin: 07/02/25 08:48 Dose: 10 mg Documented By: PRAMOD Budesonide (Budesonide 0.5 Mg/2 Ml Ampul.Neb) 0.5 mg INHALE RBID [facility] Last Admin: 07/02/25 07:43 Dose: 0.5 mg Documented By: MARICRUZ Calcium Carbonate (Calcium Carbonate 750 Mg Tab.Chew) 750 mg PO Q4H PRN PRN Reason: Heartburn Levalbuterol HCl 1.25 mg/ (Ipratropium [place] 0.5 mg) 0 mg INHALE Q6H [facility] Docusate Sodium (Docusate Sodium 100 Mg Capsule) 100 mg PO DAILY [facility] Last Admin: 07/02/25 08:47 Dose: 100 mg Documented By: PRAMOD Escitalopram Oxalate (Escitalopram Oxalate 10 Mg Tablet) 10 mg PO DAILY [facility] Last Admin: 07/02/25 08:47 Dose: 10 mg Documented By: PRAMOD Guaifenesin (Guaifenesin [place] 600 Mg Tab.Er.12h) 600 mg PO BID [facility] Last Admin: 07/02/25 08:47 Dose: 600 mg Documented By: PRAMOD Heparin Sodium (Porcine) (Heparin Sodium,Porcine 5,000 Unit/Ml Vial) 5,000 unit SUBCUT Q12H [facility] Last Admin: 07/02/25 10:47 Dose: 5,000 unit Documented By: PRAMOD Hydralazine HCl (Hydralazine Hcl 20 Mg/Ml Vial) 10 mg IVPUSH Q6H PRN; Protocol PRN Reason: SBP > 160 Last Admin: 06/30/25 19:40 Dose: 10 mg Documented By: ROSS Hydrochlorothiazide (Hydrochlorothiazide 12.5 Mg Tablet) 12.5 mg PO DAILY [facility]; Protocol Last Admin: 07/02/25 08:47 Dose: 12.5 mg Documented By: PRAMOD Hydroxyzine HCl (Hydroxyzine Hcl 25 Mg Tablet) 25 mg PO TID PRN PRN Reason: Anxiety Last Admin: 07/02/25 12:29 Dose: 25 mg Documented By: KELLY Ceftriaxone Sodium 1 gm/ (Sodium Chloride) 50 mls @ 100 mls/hr IV Q24H [facility] Last Infusion: 07/02/25 11:22 Dose: Infused Documented By: PRAMOD Lisinopril (Lisinopril 5 Mg Tablet) 5 mg PO DAILY [facility]; Protocol Last Admin: 07/02/25 08:47 Dose: 5 mg Documented By: PRAMOD Magnesium Hydroxide (Milk Of Magnesia 30 Ml Oral.Susp) 30 ml PO DAILY PRN PRN Reason: Constipation Melatonin (Melatonin 3 Mg Tablet) 6 mg PO BEDTIME PRN PRN Reason: Insomnia Methylprednisolone Sodium Succinate (Methylprednisolone Sod Succ 40 Mg/Ml Vial) 40 mg IVPUSH BID [facility] Last Admin: 07/02/25 08:48 Dose: 40 mg Documented By: PRAMOD Morphine Sulfate (Morphine Sulfate Er 15 Mg Tablet.Er) 15 mg PO BID [facility] Last Admin: 07/02/25 08:47 Dose: 15 mg Documented By: PRAMOD Multivitamins/Vitamin C (Multivitamin Tablet) 1 tab PO DAILY [facility] Last Admin: 07/02/25 08:47 Dose: 1 tab Documented By: PRAMOD Naloxone HCl (Naloxone Hcl 0.4 Mg/Ml Vial) 0.4 mg SUBCUT Q3M PRN PRN Reason: overdose Ondansetron HCl (Ondansetron Hcl 4 Mg/2 Ml Vial) 4 mg IVPUSH Q8H PRN PRN Reason: Nausea and Vomiting Potassium Chloride (Potassium Chloride Er 20 Meq Tab.Er.Prt) 20 meq PO DAILY [facility] Last Admin: 07/02/25 08:47 Dose: 20 meq Documented By: PRAMOD Sodium Chloride (0.9 % Sodium Chloride Flush 3 Ml Syringe) 3 ml IVFLUSH QSHIFT [facility] Last Admin: 07/02/25 15:40 Dose: Not Given Documented By: PRAMOD Non-Admin Reason: Previously Administered Labs 06/29/25 07:11 06/29/25 07:11 Microbiology Microbiology Results: Microbiology 06/27/25 10:43 Blood Culture - Final Blood - Venous No growth after 5 days. 06/27/25 10:48 Blood Culture - Final Blood - Venous No growth after 5 days. Assessment and Plan (1) COPD (chronic obstructive pulmonary disease): Status: Acute (2) Acute exacerbation of chronic obstructive pulmonary disease (COPD): Status: Acute (3) Acute and chronic respiratory failure with hypoxia: Status: Acute Plan 70 year old women admitted with acute on chronic respiratory failure secondary to COPD exacerbation and pneumonia, found to be positive for FLU Acute on chronic respiratory failure secondary to COPD exacerbation, influenza A and mild pneumonia Patient on baseline 2-4 L of oxygen cxr showing possible pna continue Rocephin. completed azithromycin IV solumedrol decreased to every 12 hrs scheduled neb tx q6hrs and PRN Completed Tamiflu x 5 days for flu A continue supplemental oxygen for SpO2 greater than 88% incentive spirometer and flutter valve continue pulmonology consulted, will continue w/ present management Elevated blood sugars Likely secondary to steroid use A1c 6.6 continue ISS Hypertension continue HCTZ and amlodipine, will initiate lisinopril 5mg qd Anxiety, chronic continue lexapro and hydroxyzine Wrist fracture in March [place]x [place] [facility] [place] continue pain medications DVT prophylaxis with heparin Full code Quality Stroke Does the patient have a stroke diagnosis?: No VTE Prior VTE?: No VTE Risk Level:: Medical - moderate - high VTE Device Contraindication: Treatment Not Indicated VTE Drug Contraindication: N/A - Med Ordered
[2025-07-03] VITALS (9 sets, daily range): BP systolic 133–164; BP diastolic 62–79; PULSE 88–113; RESP 16–19; TEMP 36.1–36.8; O2SAT 86–95
--- NOTE | 2025-07-03 03:55 | PM.EVENT ---
Event Note Date of Service: 07/03/25 Event Note: Received message from nursing that patient no longer has her usual morphine and oxycodone ordered for chronic back pain. 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 After further review based on vital signs and overall condition, decision made to restart morphine 15 mg ER b.i.d. and oxycodone 10 mg q.6 hours PRN for moderate pain. Nursing updated and orders were placed. Time Spent With Patient Time: Total time managing care of this patient today ____ minutes.
[2025-07-03] MEDS: oxyCODONE HCl Immed Release 5 MG TABLET 10 MG PO ×2 (04:07→16:03)
[2025-07-03] MEDS: levalbuterol HCL 1.25 MG, Ipratropium Bromide 0.5 MG INHALE ×3 (08:16→21:02)
[2025-07-03] MEDS: Potassium Chloride ER 20 MEQ TAB.ER.PRT PO (08:38)
[2025-07-03] MEDS: Morphine Sulfate ER 15 MG TABLET.ER PO ×2 (08:38→20:53)
[2025-07-03] MEDS: guaiFENesin LA 600 MG TAB.ER.12H PO ×2 (08:39→20:53)
[2025-07-03] MEDS: 0.9 % Sodium Chloride Flush 3 ML SYRINGE IVFLUSH ×3 (08:40→22:57)
[2025-07-03 09:44] LABS: VBG HCO3 43 mmol/L (22-26); VBG O2 % Saturation 62.0 %
[2025-07-03 09:44] LABS: Venous Blood Gas Refer to POC result
[2025-07-03 10:48] LABS: Hematocrit 48.4 % (37.0-47.0); Hemoglobin 15.7 g/dl (12.0-16.0); Mean Corpuscular HGB Conc 32.4 g/dl (31.0-35.0); Mean Corpuscular Hemoglobin 29.9 pg (27.0-33.0); Mean Corpuscular Volume 92.2 fL (80.0-98.0); NRBC Abs Auto 0.000 X10*3/uL (0.0-0.012); NRBC Pct Auto 0.0 /100WBC (0.0-0.2); Platelet Count 252 X10*3/uL (160-400); Red Blood Count 5.25 X10*6/uL (4.20-5.50); White Blood Count 9.8 X10*3/uL (4.8-10.8)
[2025-07-03 11:14] LABS: Anion Gap 15 (12-20); Blood Urea Nitrogen 22 mg/dL (9-16); Calcium 10.0 mg/dL (8.4-10.2); Carbon Dioxide 36 mmol/L (22-29); Chloride 95 mmol/L (96-108); Creatinine Clr Calc Pharmacy 72.0; Estimated Glomerular Filt Rate > 60; Potassium 4.5 mmol/L (3.3-5.1); Sodium 141 mmol/L (135-145)
[2025-07-03 11:31] LABS: Procalcitonin 0.04 ng/mL
--- NOTE | 2025-07-03 14:48 | P.PNIM_ITS ---
Subjective Subjective Date of Service: 07/03/25 Interval History: breathing improved but still short of breath with movement, wheezing as well Review of Systems Review of Systems: Yes all other systems are reviewed and are negative Physical Exam 2 Vital Signs: Vital Signs: Last Vital Signs Temp 97.7 F 07/03/25 11:21 Pulse 98 07/03/25 11:21 Resp 18 07/03/25 11:21 BP 143/63 H 07/03/25 11:21 Pulse Ox 92 07/03/25 11:21 O2 Del Method Nasal Cannula 07/03/25 11:21 O2 Flow Rate 2 07/03/25 03:13 Oxygen Flow Rate 4 06/27/25 06:22 BMI result Body Mass Index 25.8 Gen: in no acute distress HEENT: sclera anicteric, moist mucus membranes Neck: supple Lungs: dimished, extensive wheezing on L side Heart: regular rate and rhythm, no murmurs Abd: soft, non-tender, non-distended Ext: no edema Skin: warm/well-perfused Neuro: alert and oriented x3, no focal findings Psych: appropriate affect Objective Data Active Medications Acetaminophen (Acetaminophen 325 Mg Tablet) 650 mg PO Q6H PRN PRN Reason: Pain, Mild 1-3,fever,headache Albuterol/Ipratropium (Albuterol/Iprat 2.5/0.5mg 3 Ml Ampul.Neb) 3 ml INHALE RQ4H WHILE AWAKE PRN PRN Reason: Shortness of Breath/Wheezing Last Admin: 06/29/25 12:09 Dose: 3 ml Documented By: HORACIO Amlodipine Besylate (Amlodipine Besylate 10 Mg Tablet) 10 mg PO DAILY [facility]; Protocol Last Admin: 07/03/25 08:39 Dose: 10 mg Documented By: MONIK Budesonide (Budesonide 0.5 Mg/2 Ml Ampul.Neb) 0.5 mg INHALE RBID [facility] Last Admin: 07/03/25 08:16 Dose: 0.5 mg Documented By: ANJEL Calcium Carbonate (Calcium Carbonate 750 Mg Tab.Chew) 750 mg PO Q4H PRN PRN Reason: Heartburn Levalbuterol HCl 1.25 mg/ (Ipratropium [place] 0.5 mg) 0 mg INHALE Q6H [facility] Last Admin: 07/03/25 08:16 Dose: 2 dose Documented By: ANJEL Docusate Sodium (Docusate Sodium 100 Mg Capsule) 100 mg PO DAILY [facility] Last Admin: 07/03/25 08:38 Dose: 100 mg Documented By: MONIK Escitalopram Oxalate (Escitalopram Oxalate 10 Mg Tablet) 10 mg PO DAILY [facility] Last Admin: 07/03/25 08:39 Dose: 10 mg Documented By: MONIK Guaifenesin (Guaifenesin [place] 600 Mg Tab.Er.12h) 600 mg PO BID [facility] Last Admin: 07/03/25 08:39 Dose: 600 mg Documented By: MONIK Heparin Sodium (Porcine) (Heparin Sodium,Porcine 5,000 Unit/Ml Vial) 5,000 unit SUBCUT Q12H [facility] Last Admin: 07/03/25 11:21 Dose: 5,000 unit Documented By: MONIK Hydralazine HCl (Hydralazine Hcl 20 Mg/Ml Vial) 10 mg IVPUSH Q6H PRN; Protocol PRN Reason: SBP > 160 Last Admin: 06/30/25 19:40 Dose: 10 mg Documented By: ROSS Hydrochlorothiazide (Hydrochlorothiazide 12.5 Mg Tablet) 12.5 mg PO DAILY [facility]; Protocol Last Admin: 07/03/25 08:39 Dose: 12.5 mg Documented By: MONIK Hydroxyzine HCl (Hydroxyzine Hcl 25 Mg Tablet) 25 mg PO TID PRN PRN Reason: Anxiety Last Admin: 07/02/25 20:35 Dose: 25 mg Documented By: ROLAND Ceftriaxone Sodium 1 gm/ (Sodium Chloride) 50 mls @ 100 mls/hr IV Q24H [facility] Last Infusion: 07/03/25 12:42 Dose: Infused Documented By: MONIK Lisinopril (Lisinopril 5 Mg Tablet) 5 mg PO DAILY [facility]; Protocol Last Admin: 07/03/25 08:39 Dose: 5 mg Documented By: MONIK Magnesium Hydroxide (Milk Of Magnesia 30 Ml Oral.Susp) 30 ml PO DAILY PRN PRN Reason: Constipation Melatonin (Melatonin 3 Mg Tablet) 6 mg PO BEDTIME PRN PRN Reason: Insomnia Methylprednisolone Sodium Succinate (Methylprednisolone Sod Succ 40 Mg/Ml Vial) 40 mg IVPUSH DAILY [facility] Morphine Sulfate (Morphine Sulfate Er 15 Mg Tablet.Er) 15 mg PO Q12H [facility] Last Admin: 07/03/25 08:38 Dose: 15 mg Documented By: MONIK Multivitamins/Vitamin C (Multivitamin Tablet) 1 tab PO DAILY [facility] Last Admin: 07/03/25 08:39 Dose: 1 tab Documented By: MONIK Naloxone HCl (Naloxone Hcl 0.4 Mg/Ml Vial) 0.4 mg SUBCUT Q3M PRN PRN Reason: overdose Ondansetron HCl (Ondansetron Hcl 4 Mg/2 Ml Vial) 4 mg IVPUSH Q8H PRN PRN Reason: Nausea and Vomiting Oxycodone HCl (Oxycodone Hcl Immed Release 5 Mg Tablet) 10 mg PO Q6H PRN PRN Reason: Pain, Moderate(Pain Scale 4-6) Last Admin: 07/03/25 04:07 Dose: 10 mg Documented By: ROLAND Potassium Chloride (Potassium Chloride Er 20 Meq Tab.Er.Prt) 20 meq PO DAILY [facility] Last Admin: 07/03/25 08:38 Dose: 20 meq Documented By: MONIK Sodium Chloride (0.9 % Sodium Chloride Flush 3 Ml Syringe) 3 ml IVFLUSH QSHIFT [facility] Last Admin: 07/03/25 08:40 Dose: 3 ml Documented By: MONIK Labs 07/03/25 09:32 07/03/25 09:32 Labs: Laboratory Results - last 24 hr 07/03/25 07/03/25 09:32 09:39 MCV 92.2 MCH 29.9 MCHC 32.4 RDW 11.7 Plt Count 252 MPV 9.4 Absolute Nucleated RBC 0.000 Nucleated RBC % (auto) 0.0 VBG pH 7.43 VBG pCO2 65 VBG pO2 43 VBG HCO3 43 H VBG O2 Saturation 62.0 VBG Base Excess 15.5 Anion Gap 15 Estim Creat Clear Calc 72.0 Estimated GFR > 60 Random Glucose 170 H Calcium 10.0 D Procalcitonin 0.04 Microbiology Microbiology Results: Microbiology 06/27/25 10:43 Blood Culture - Final Blood - Venous No growth after 5 days. 06/27/25 10:48 Blood Culture - Final Blood - Venous No growth after 5 days. Assessment and Plan (1) COPD (chronic obstructive pulmonary disease): Status: Acute (2) Acute exacerbation of chronic obstructive pulmonary disease (COPD): Status: Acute (3) Acute and chronic respiratory failure with hypoxia: Status: Acute Plan d7, 70yo F with COPD on home O2 admitted for acute/chronic hypoxic resp failure due to influenza and pneumonia with COPD exacerbation acute/chronic hypoxic resp failure due to influenza and pneumonia with COPD exacerbation - ceftriaxone 06/27-, completed azithromycin - completed Tamiflu - decrease methylprednisolone to 40 mg q24h - nebs - IS, [place] steroid hyperglycemia - A1c 6.6; recheck in 6 mo; in meanwhile give obed-dose lispro chronic pain: MSSR, oxycodone HTN: lisinopril, HCTZ, amlodipine anxiety: escitalopram, hydroxyzine VTE ppx: UFH dispo: PT eval- STR In my clinical judgment, the patient requires continued inpatient hospitalization for the following reasons: resp failure Total time managing care of this patient today: 40 minutes. Quality Stroke Does the patient have a stroke diagnosis?: No VTE Prior VTE?: No VTE Risk Level:: Medical - moderate - high VTE Device Contraindication: Treatment Not Indicated VTE Drug Contraindication: N/A - Med Ordered
[2025-07-04] VITALS (12 sets, daily range): BP systolic 119–166; BP diastolic 65–81; PULSE 86–105; RESP 16–18; TEMP 36.1–37; O2SAT 90–96
[2025-07-04] MEDS: levalbuterol HCL 1.25 MG, Ipratropium Bromide 0.5 MG INHALE ×2 (03:06→20:13)
[2025-07-04] MEDS: Morphine Sulfate ER 15 MG TABLET.ER PO ×2 (08:55→20:05)
[2025-07-04] MEDS: guaiFENesin LA 600 MG TAB.ER.12H PO ×2 (08:55→20:06)
[2025-07-04] MEDS: Potassium Chloride ER 20 MEQ TAB.ER.PRT PO (08:56)
[2025-07-04] MEDS: 0.9 % Sodium Chloride Flush 3 ML SYRINGE IVFLUSH ×3 (08:57→22:36)
[2025-07-04] MEDS: oxyCODONE HCl Immed Release 5 MG TABLET 10 MG PO ×2 (09:06→15:07)
--- NOTE | 2025-07-04 11:24 | P.PNIM_ITS ---
Subjective Subjective Date of Service: 07/04/25 Interval History: still wheezing, dyspneic with movement Review of Systems Review of Systems: Yes all other systems are reviewed and are negative Physical Exam 2 Vital Signs: Vital Signs: Last Vital Signs Temp 96.9 F 07/04/25 07:19 Pulse 105 H 07/04/25 08:29 Resp 16 07/04/25 08:29 BP 128/71 07/04/25 08:56 Pulse Ox 92 07/04/25 07:19 O2 Del Method Nasal Cannula 07/04/25 07:19 O2 Flow Rate 3 07/04/25 07:19 Oxygen Flow Rate 4 06/27/25 06:22 BMI result Body Mass Index 25.8 Gen: in no acute distress HEENT: sclera anicteric, moist mucus membranes Neck: supple Lungs: dimished, extensive wheezing bilaterally Heart: regular rate and rhythm, no murmurs Abd: soft, non-tender, non-distended Ext: no edema Skin: warm/well-perfused Neuro: alert and oriented x3, no focal findings Psych: appropriate affect Objective Data Active Medications Acetaminophen (Acetaminophen 325 Mg Tablet) 650 mg PO Q6H PRN PRN Reason: Pain, Mild 1-3,fever,headache Albuterol/Ipratropium (Albuterol/Iprat 2.5/0.5mg 3 Ml Ampul.Neb) 3 ml INHALE RQ4H WHILE AWAKE PRN PRN Reason: Shortness of Breath/Wheezing Last Admin: 06/29/25 12:09 Dose: 3 ml Documented By: HORACIO Amlodipine Besylate (Amlodipine Besylate 10 Mg Tablet) 10 mg PO DAILY [facility]; Protocol Last Admin: 07/04/25 08:56 Dose: 10 mg Documented By: RACHEAL Budesonide (Budesonide 0.5 Mg/2 Ml Ampul.Neb) 0.5 mg INHALE RBID [facility] Last Admin: 07/04/25 08:27 Dose: 0.5 mg Documented By: ANAIS Calcium Carbonate (Calcium Carbonate 750 Mg Tab.Chew) 750 mg PO Q4H PRN PRN Reason: Heartburn Levalbuterol HCl 1.25 mg/ (Ipratropium [place] 0.5 mg) 0 mg INHALE Q6H [facility] Last Admin: 07/04/25 03:06 Dose: 1.75 dose Documented By: OLIVIER Docusate Sodium (Docusate Sodium 100 Mg Capsule) 100 mg PO DAILY [facility] Last Admin: 07/04/25 08:57 Dose: Not Given Documented By: RACHEAL Non-Admin Reason: Patient Refused Escitalopram Oxalate (Escitalopram Oxalate 10 Mg Tablet) 10 mg PO DAILY [facility] Last Admin: 07/04/25 08:55 Dose: 10 mg Documented By: RACHEAL Guaifenesin (Guaifenesin [place] 600 Mg Tab.Er.12h) 600 mg PO BID [facility] Last Admin: 07/04/25 08:55 Dose: 600 mg Documented By: RACHEAL Heparin Sodium (Porcine) (Heparin Sodium,Porcine 5,000 Unit/Ml Vial) 5,000 unit SUBCUT Q12H [facility] Last Admin: 07/04/25 10:09 Dose: 5,000 unit Documented By: RACHEAL Hydralazine HCl (Hydralazine Hcl 20 Mg/Ml Vial) 10 mg IVPUSH Q6H PRN; Protocol PRN Reason: SBP > 160 Last Admin: 06/30/25 19:40 Dose: 10 mg Documented By: ROSS Hydrochlorothiazide (Hydrochlorothiazide 12.5 Mg Tablet) 12.5 mg PO DAILY [facility]; Protocol Last Admin: 07/04/25 08:55 Dose: 12.5 mg Documented By: RACHEAL Hydroxyzine HCl (Hydroxyzine Hcl 25 Mg Tablet) 25 mg PO TID PRN PRN Reason: Anxiety Last Admin: 07/03/25 22:57 Dose: 25 mg Documented By: ROLAND Ceftriaxone Sodium 1 gm/ (Sodium Chloride) 50 mls @ 100 mls/hr IV Q24H [facility] Last Admin: 07/04/25 10:09 Dose: 100 mls/hr Documented By: RACHEAL Lisinopril (Lisinopril 5 Mg Tablet) 5 mg PO DAILY [facility]; Protocol Last Admin: 07/04/25 08:56 Dose: 5 mg Documented By: RACHEAL Magnesium Hydroxide (Milk Of Magnesia 30 Ml Oral.Susp) 30 ml PO DAILY PRN PRN Reason: Constipation Melatonin (Melatonin 3 Mg Tablet) 6 mg PO BEDTIME PRN PRN Reason: Insomnia Methylprednisolone Sodium Succinate (Methylprednisolone Sod Succ 40 Mg/Ml Vial) 40 mg IVPUSH DAILY [facility] Last Admin: 07/04/25 08:56 Dose: 40 mg Documented By: RACHEAL Morphine Sulfate (Morphine Sulfate Er 15 Mg Tablet.Er) 15 mg PO Q12H [facility] Last Admin: 07/04/25 08:55 Dose: 15 mg Documented By: RACHEAL Multivitamins/Vitamin C (Multivitamin Tablet) 1 tab PO DAILY [facility] Last Admin: 07/04/25 08:55 Dose: 1 tab Documented By: RACHEAL Naloxone HCl (Naloxone Hcl 0.4 Mg/Ml Vial) 0.4 mg SUBCUT Q3M PRN PRN Reason: overdose Ondansetron HCl (Ondansetron Hcl 4 Mg/2 Ml Vial) 4 mg IVPUSH Q8H PRN PRN Reason: Nausea and Vomiting Oxycodone HCl (Oxycodone Hcl Immed Release 5 Mg Tablet) 10 mg PO Q6H PRN PRN Reason: Pain, Moderate(Pain Scale 4-6) Last Admin: 07/04/25 09:06 Dose: 10 mg Documented By: RACHEAL Potassium Chloride (Potassium Chloride Er 20 Meq Tab.Er.Prt) 20 meq PO DAILY [facility] Last Admin: 07/04/25 08:56 Dose: 20 meq Documented By: RACHEAL Sodium Chloride (0.9 % Sodium Chloride Flush 3 Ml Syringe) 3 ml IVFLUSH QSHIFT [facility] Last Admin: 07/04/25 08:57 Dose: 3 ml Documented By: RACHEAL Labs 07/03/25 09:32 07/03/25 09:32 Assessment and Plan (1) COPD (chronic obstructive pulmonary disease): Status: Acute (2) Acute exacerbation of chronic obstructive pulmonary disease (COPD): Status: Acute (3) Acute and chronic respiratory failure with hypoxia: Status: Acute Plan d8, 70yo F with COPD on home O2 admitted for acute/chronic hypoxic resp failure due to influenza and pneumonia with COPD exacerbation acute/chronic hypoxic resp failure due to influenza and pneumonia with COPD exacerbation - ceftriaxone 06/27-, completed azithromycin - completed Tamiflu - decreased methylprednisolone to 40 mg q24h - nebs - IS, Aerobika steroid hyperglycemia - A1c 6.6; recheck in 6 mo; in meanwhile give obed-dose lispro chronic pain: MSSR, oxycodone HTN: lisinopril, HCTZ, amlodipine anxiety: escitalopram, hydroxyzine VTE ppx: UFH dispo: PT eval- STR recommended but pt declines; plan home with VNA In my clinical judgment, the patient requires continued inpatient hospitalization for the following reasons: resp failure Total time managing care of this patient today: 40 minutes. Quality Stroke Does the patient have a stroke diagnosis?: No VTE Prior VTE?: No VTE Risk Level:: Medical - moderate - high VTE Device Contraindication: Treatment Not Indicated VTE Drug Contraindication: N/A - Med Ordered
--- NOTE | 2025-07-04 17:10 | PC.NURSE ---
Pt HR into 120's with activity and when coughing. O2 sat down to 87% on 3L NC with ambulation and back up to 92% at rest
[2025-07-05 02:22] VITALS: PULSE 78; RESP 18; O2SAT 97
[2025-07-05] MEDS: levalbuterol HCL 1.25 MG, Ipratropium Bromide 0.5 MG INHALE ×2 (02:22→07:55)
[2025-07-05 03:32] VITALS: BP 126/65; PULSE 91; RESP 20; TEMP 36.8; O2SAT 96
[2025-07-05 07:00] VITALS: BP 134/68; PULSE 96; RESP 17; TEMP 36.6; O2SAT 92
[2025-07-05 07:55] VITALS: PULSE 96; RESP 17; O2SAT 96
[2025-07-05 09:18] VITALS: BP 134/68
[2025-07-05] MEDS: oxyCODONE HCl Immed Release 5 MG TABLET 10 MG PO (09:18)
[2025-07-05] MEDS: guaiFENesin LA 600 MG TAB.ER.12H PO (09:18)
[2025-07-05] MEDS: Morphine Sulfate ER 15 MG TABLET.ER PO (09:19)
[2025-07-05] MEDS: Potassium Chloride ER 20 MEQ TAB.ER.PRT PO (09:19)
[2025-07-05] MEDS: 0.9 % Sodium Chloride Flush 3 ML SYRINGE IVFLUSH (09:20)
[2025-07-05 11:53] VITALS: BP 152/68; PULSE 90; RESP 17; TEMP 36.6; O2SAT 93
--- NOTE | 2025-07-05 11:54 | W.MHC.F2F ---
Service Date Service Date: 07/05/25 Encounter Date of encounter: 07/05/25 Reasons for Services Signs and symptoms assessed: respiratory see PT evaluation 07/03/25 Reason for retirement: medication management, medication treatment and teach disease management Reason for physical therapy: home safety and mobility, therapeutic exercises, gait/transfer training, assess need for DME, ADL training and energy conservation MD Overseeing Care: Lonny Bentley Homebound: Leaving the home is medically contraindicated at this time without the asist of a device and/or another person due th the listed conditions above and below. Reason homebound: unsteady gait / fall risk and shortness of breath with minimal effort Certification: Based on the above findings, I certify that this patient is confined to the home and needs intermittent retirement care, physical therapy and/or speech therapy, or continues to need occupational therapy. The patient is under my care, and I have initiated the establishment of the plan of care. The patient will be followed by a physician who will periodically review the plan of care. Time Spent With Patient Time: Total time managing care of this patient today ____ minutes.
--- NOTE | 2025-07-05 11:55 | P.DS_ITS ---
DS: Providers Provider Date of Service: 07/05/25 Date of admission: 06/27/25 10:55 Date of discharge: 07/05/25 Primary care physician: Lonny Bentley MD Consults: 06/30/25 09:26 Consult to Pulmonology Routine Consulting Provider: [facility] [place] Pulmonology Services Reason for consultation: COPD exacerbation + Flu A Has provider been notified: No DS: Diagnosis Discharge Diagnosis (1) Acute exacerbation of chronic obstructive pulmonary disease (COPD): Status: Acute (2) Acute and chronic respiratory failure with hypoxia: Status: Acute (3) Pneumonia: Status: Acute (4) Influenza: Status: Acute DS: Summary Hospital Course Hospital Course: From the history and physical by the admitting hospitalist, Rozina Tong NP, 06/27/25: 70-year-old female former smoker with 30 pack year history quit 18 years ago, history of underlying COPD, asthma, history of opioid dependence, chronic lower back pain who presents emergency department for evaluation of 3 days of shortness of breath and productive cough. Patient states that yesterday her symptoms got worse. She reported that she had to increase her oxygen up to 4 L and she has been using her inhalers with no effect. She denied fever, chills, nausea, vomiting, diarrhea she reports her last hospitalization was approximately 1 year ago. In the ER chest x-ray showed possible pneumonia, she was given albuterol, Rocephin, azithromycin, ibuprofen, potassium. Flu a was positive. She will be admitted for further management and treatment of acute on chronic hypoxic respiratory failure secondary to flu a, COPD and pneumonia. 70yo F with COPD on home O2 admitted for acute/chronic hypoxic resp failure due to influenza and pneumonia with COPD exacerbation. Completed a course of oseltamivir, azithromycin, and ceftriaxone and treated with IV steroids and nebulizer treatments. Had some hyperglycemia and A1c noted to be 6.6; will need repeat in 3-6 months to see if she meets criteria for diabetes but in meanwhile should follow diabetic diet and discuss further therapy with her PCP. Improved to the point where she was seen by PT; STR recommended but pt declined. 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 Time Attestation Discharge Coordination Time (in mins): 45 Quality: Safe Use of Opioids Does Pt have an Active Cancer Diagnosis on the Problem List?: No Quality: Stroke Does the patient have a stroke diagnosis?: No Physical Exam Vital Signs: Vital Signs: Last Vital Signs Temp 97.8 F 07/05/25 11:53 Pulse 90 07/05/25 11:53 Resp 17 07/05/25 11:53 BP 152/68 H 07/05/25 11:53 Pulse Ox 93 07/05/25 11:53 O2 Del Method Nasal Cannula 07/05/25 11:53 O2 Flow Rate 3 07/05/25 11:53 Oxygen Flow Rate 4 06/27/25 06:22 BMI result Body Mass Index 25.8 Gen: in no acute distress HEENT: sclera anicteric, moist mucus membranes Neck: supple Lungs: scant soft exp wheezes, good air entry Heart: regular rate and rhythm, no murmurs Abd: soft, non-tender, non-distended Ext: no edema Skin: warm/well-perfused Neuro: alert and oriented x3, no focal findings Psych: appropriate affect DS: Data Data Completed and Pending Completed studies during hospitalization [Text1]: Laboratory Results WBC 9.8 X10*3/uL (4.8-10.8) 07/03/25 09:32 RBC 5.25 X10*6/uL (4.20-5.50) 07/03/25 09:32 Hgb 15.7 g/dl (12.0-16.0) 07/03/25 09:32 Hct 48.4 % (37.0-47.0) H 07/03/25 09:32 MCV 92.2 fL (80.0-98.0) 07/03/25 09:32 MCH 29.9 pg (27.0-33.0) 07/03/25 09:32 MCHC 32.4 g/dl (31.0-35.0) 07/03/25 09:32 RDW 11.7 % (11.0-16.0) 07/03/25 09:32 Plt Count 252 X10*3/uL (160-400) 07/03/25 09:32 MPV 9.4 fL (9.4-12.3) 07/03/25 09:32 Immature Gran % (Auto) 0.3 % (0.0-0.4) 06/29/25 07:11 Neut % (Auto) 80.3 % (45-73) H 06/29/25 07:11 Lymph % (Auto) 13.2 % (20-40) L 06/29/25 07:11 Bennett % (Auto) 5.9 % (2-11) 06/29/25 07:11 Eos % (Auto) 0.2 % (0-4) 06/29/25 07:11 Baso % (Auto) 0.1 % (0-2) 06/29/25 07:11 Lymph # (Auto) 1.4 X10*3/uL (1.2-4.9) 06/29/25 07:11 Bennett # (Auto) 0.6 X10*3/uL (0.1-1.2) 06/29/25 07:11 Eos # (Auto) 0.0 X10*3/uL (0.0-0.4) 06/29/25 07:11 Baso # (Auto) 0.0 X10*3/uL (0.0-0.2) 06/29/25 07:11 Abs Immat Gran (auto) 0.03 X10*3/uL (0.00-0.03) 06/29/25 07:11 Absolute Neuts (auto) 8.4 x10*3/uL (2.0-8.3) H 06/29/25 07:11 Absolute Nucleated RBC 0.000 X10*3/uL (0.0-0.012) 07/03/25 09:32 Nucleated RBC % (auto) 0.0 /100WBC (0.0-0.2) 07/03/25 09:32 O2 Saturation 100.0 % 06/27/25 21:47 ABG pH at Pt Temp 7.45 (7.35-7.45) 06/27/25 21:47 ABG pCO2 at Pt Temp 39 mmHg (32-45) 06/27/25 21:47 ABG pO2 at Pt Temp 110 mmHg (83-108) H 06/27/25 21:47 ABG HCO3 27 mmol/L (22-26) H 06/27/25 21:47 ABG Base Excess (Actual) 3.5 mmol/L 06/27/25 21:47 VBG pH 7.43 (7.32-7.43) 07/03/25 09:39 VBG pCO2 65 mmHg 07/03/25 09:39 VBG pO2 43 mmHg 07/03/25 09:39 VBG HCO3 43 mmol/L (22-26) H 07/03/25 09:39 VBG O2 Saturation 62.0 % 07/03/25 09:39 VBG Base Excess 15.5 mmol/L 07/03/25 09:39 Sodium 141 mmol/L (135-145) 07/03/25 09:32 Potassium 4.5 mmol/L (3.3-5.1) D 07/03/25 09:32 Chloride 95 mmol/L (96-108) L 07/03/25 09:32 Carbon Dioxide 36 mmol/L (22-29) H 07/03/25 09:32 Anion Gap 15 (12-20) 07/03/25 09:32 BUN 22 mg/dL (9-16) H 07/03/25 09:32 Creatinine 0.68 mg/dL (0.5-1.4) 07/03/25 09:32 Estim Creat Clear Calc 72.0 07/03/25 09:32 Estimated GFR > 60 07/03/25 09:32 Random Glucose 170 mg/dL (60-115) H 07/03/25 09:32 Estimat Average Glucose 143 mg/dL 06/28/25 05:22 Hemoglobin A1c % 6.6 % (<6.0) H 06/28/25 05:22 Lactic Acid 2.4 mmol/L (0.5-2.0) H* 06/27/25 21:35 Lactic Acid F/U @ 2Hr 0.9 mmol/L (0.5-2.0) 06/28/25 00:08 Lactic Acid F/U @ 4Hr 6.7 mmol/L (0.5-2.0) H* 06/27/25 15:54 Calcium 10.0 mg/dL (8.4-10.2) D 07/03/25 09:32 Magnesium 2.4 mg/dL (1.6-2.6) 06/29/25 07:11 Total Bilirubin 0.4 mg/dL (0.0-1.0) 06/27/25 08:34 AST 37 U/L (5-31) H 06/27/25 08:34 ALT 43 U/L (0-31) H 06/27/25 08:34 Alkaline Phosphatase 87 U/L (39-117) 06/27/25 08:34 Troponin I High Sens 3.2 ng/L (<3.5-17.0) 06/27/25 08:34 NT-Pro-B Natriuret Pep 79.1 pg/mL (<300) 06/27/25 08:34 Total Protein 7.4 g/dL (6.5-8.0) 06/27/25 08:34 Albumin 4.7 g/dL (3.5-5.0) 06/27/25 08:34 Lipase 16 U/L (8-78) 06/27/25 08:34 Procalcitonin 0.04 ng/mL 07/03/25 09:32 TSH 0.80 uIU/mL (0.32-4.0) 06/27/25 08:34 Respiratory Panel Nunez See Note 06/28/25 02:44 Adenovirus (Rapid PCR) Not Detected (Not Detect.) 06/28/25 02:44 B.pert (TEM-PCR) Not Detected (Not Detect.) 06/28/25 02:44 B.parapertussis DNA PCR Not Detected (Not Detect.) 06/28/25 02:44 C. pneumoniae DNA (PCR) Not Detected (Not Detect.) 06/28/25 02:44 Coronavirus OC43 (PCR) Not Detected (Not Detect.) 06/28/25 02:44 Coronavirus HKU1 (PCR) Not Detected (Not Detect.) 06/28/25 02:44 Coronavirus 229E (PCR) Not Detected (Not Detect.) 06/28/25 02:44 COVID-19 (CELINA) Negative (Negative) 06/27/25 06:43 COVID-19 Clin Com See Note 06/27/25 06:43 Coronavirus NL63 (PCR) Not Detected (Not Detect.) 06/28/25 02:44 Human Metapneumovir PCR Not Detected (Not Detect.) 06/28/25 02:44 Influenza Type A (SHANIA) Positive (Negative) A 06/27/25 06:43 Influenza A (RT-PCR) Detected (Not Detect.) A 06/28/25 02:44 Influenza A (H1) PCR Not Detected (Not Detect.) 06/28/25 02:44 Influ A (H1/09) PCR Not Detected (Not Detect.) 06/28/25 02:44 Influenza A (H3) PCR Detected (Not Detect.) A 06/28/25 02:44 Influenza Type B (SHANIA) Negative (Negative) 06/27/25 06:43 Influenza B (RT-PCR) Not Detected (Not Detect.) 06/28/25 02:44 Influenza A & B Note See Note 06/27/25 06:43 M. pneumoniae (PCR) Not Detected (Not Detect.) 06/28/25 02:44 Parainfluenza 1 (PCR) Not Detected (Not Detect.) 06/28/25 02:44 Parainfluenza 2 (PCR) Not Detected (Not Detect.) 06/28/25 02:44 Parainfluenza 3 (PCR) Not Detected (Not Detect.) 06/28/25 02:44 Parainfluenza 4 (PCR) Not Detected (Not Detect.) 06/28/25 02:44 RSV (PCR) Not Detected (Not Detect.) 06/28/25 02:44 Entero/Rhino (PCR) Not Detected (Not Detect.) 06/28/25 02:44 SARS-CoV-2 RNA (RT-PCR) Not Detected (Not Detect.) 06/28/25 02:44 Discharge Plan Discharge Anticipated Discharge Date/Time: 07/05/25 11:51 Patient Disposition: Home Health Service Discharge Diagnosis: COPD exacerbation due to influenza with pneumonia elevated blood sugars, A1c 6.6 Referrals: Lonny Bentley MD [Primary Care Provider, Family Practice] - 1 Week Maira Fuller NP [Nurse Practitioner, Pulmonology] - 2 Weeks Discharge Medications: New prednisone 10 mg tablet See Rx Instructions .ROUTE .COMPLEX Qty: 40 0RF Rx Instructions: 40 mg daily x 4 days, then 30 mg daily x 4 days, then 20 mg daily x 4 days, then 10 mg daily x 4 days Continued Naomytri Aerosphere 160-9-4.8 mcg/actuation HFA aerosol inhaler 2 inh inhalation BID Qty: 3 0RF morphine 15 mg Tablet Extended Release 15 mg PO BID hydrochlorothiazide 12.5 mg Tablet 12.5 mg PO DAILY oxycodone 10 mg Tablet 10 mg PO QID PRN (Reason: Pain, Moderate) prednisone 20 mg tablet 40 mg PO DAILY hydroxyzine HCl 25 mg tablet 25 mg PO TID PRN (Reason: Anxiety) fluticasone propionate 50 mcg/actuation spray,suspension 2 spray intranasal BEDTIME escitalopram oxalate 10 mg tablet 10 mg PO DAILY potassium chloride 20 mEq tablet extended release 20 meq PO DAILY multivitamin Tablet 1 tab PO DAILY ibuprofen 800 mg Tablet 800 mg PO TID PRN (Reason: Pain) naloxone 0.4 mg/mL Solution 0.4 mg SUBCUT Q3M PRN (Reason: overdose) Rx Instructions: NTExceed 10 mg total dose/episode alendronate 70 mg Tablet 70 mg PO MO@0900 Rx Instructions: on mondays amlodipine 10 mg Tablet 10 mg PO DAILY docusate sodium 100 mg Capsule 100 mg PO DAILY albuterol sulfate 90 mcg/actuation HFA aerosol inhaler 2 puff inhalation Q4H PRN (Reason: shortness of breath or wheezing) roflumilast [Daliresp] 500 mcg tablet 500 mcg PO DAILY Qty: 90 2RF ipratropium-albuterol 0.5 mg-3 mg(2.5 mg base)/3 mL solution for nebulization 3 ml INHALATION QID PRN (Reason: Wheezing) Qty: 180 3RF Discharge Orders: Discharge Order (Routine); Ordered 07/05/25 Ordered By: Ronna Scruggs Diet: Advance to usual diet Activity on Discharge: As tolerated Stand Alone Forms: Patient Portal Discharge page Print Language: Estonian Care Plan Goals: pulmonary health Health Concerns: COPD exacerbation due to influenza with pneumonia elevated blood sugars, A1c 6.6 Plan of Treatment: prednisone 10 mg tabs, taper as follows: 40 mg (4 tabs) daily x 4 days, then 30 mg (3 tabs) daily x 4 days, then 20 mg (2 tabs) daily x 4 days, then 10 mg (1 tab) daily x 4 days continue nebulizer and inhaler treatments follow up with [facility] [place] Pulmonology in 2 weeks recheck A1c in 3-6 months to see if you meet criteria for type 2 diabetes. in meanwhile, avoid sugar, try to get exercise, and discuss further therapy such as metformin with your primary care doctor Please follow up with your primary care doctor within 1 week. Return to the hospital if you experience recurrent or worsening symptoms. Assessment: See Discharge Summary.
--- NOTE | 2025-07-05 12:37 | MHC.CM.PN ---
PT CLEARED TO DC HOME TODAY WITH [facility] FOR PT AND [facility] FAM[facility] TO TRANSPORT
== END 2025-07-05 12:57 | disposition home health service (06) | DRG 193 ==
LOC: HO.ED 06:39 → HO.EDOVER 11:12 → HO.S3 15:46
PROVIDERS: Nurse Practitioner Family; Admitting Provider Nurse Practitioner Acute Care; Emergency Provider Emergency Medicine Emergency Medical Services; PCP Family Medicine; Visit Provider Family Medicine
DX: J10.00 Influenza due to other identified influenza virus with unspecified type of pneumonia (principal); J96.21 Acute and chronic respiratory failure with hypoxia; J44.1 Chronic obstructive pulmonary disease with (acute) exacerbation; E87.22 Chronic metabolic acidosis; I47.20 Ventricular tachycardia, unspecified; J44.0 Chronic obstructive pulmonary disease with (acute) lower respiratory infection; F11.21 Opioid dependence, in remission; E87.6 Hypokalemia; I10 Essential (primary) hypertension; R73.9 Hyperglycemia, unspecified; T38.0X5A Adverse effect of glucocorticoids and synthetic analogues, initial encounter; M54.9 Dorsalgia, unspecified; G89.29 Other chronic pain; F41.9 Anxiety disorder, unspecified; Z20.822 Contact with and (suspected) exposure to COVID-19; Z99.81 Dependence on supplemental oxygen; Z87.891 Personal history of nicotine dependence; Z79.51 Long term (current) use of inhaled steroids; Z79.52 Long term (current) use of systemic steroids; Z79.899 Other long term (current) drug therapy
CPT/HCPCS: 36415; 36600; 71045; 80048; 80053; 82803; 83036; 83605; 83690; 83735; 83880; 84145; 84443; 84484; 85025; 85027; 87040; 87502; 87633; 87635; 93005; 94640; 97162; 99285; J0360; J0456; J0696; J1308; J1644; J1938; J2919; J3475

== ENCOUNTER → 2025-06-27 06:36 | Outpatient (BNV) | payer MEDICARE, OTHER, SELFPAY | PROVIDERS: Admitting Provider Nurse Practitioner Acute Care; Emergency Provider Emergency Medicine Emergency Medical Services; PCP Family Medicine; Visit Provider Internal Medicine Cardiovascular Disease | DX: R06.02 Shortness of breath (principal) | CPT/HCPCS: 93010 ==

== ENCOUNTER → 2025-06-27 06:36 | Outpatient (BNV) | payer MEDICARE, OTHER, SELFPAY | PROVIDERS: Emergency Provider Emergency Medicine Emergency Medical Services; PCP Family Medicine; Visit Provider Radiology Diagnostic Radiology | DX: J43.8 Other emphysema (principal); J98.11 Atelectasis; J98.09 Other diseases of bronchus, not elsewhere classified | CPT/HCPCS: 71045 ==

== ENCOUNTER → 2025-06-27 10:55 | Outpatient (BNV) | payer MEDICARE, OTHER, SELFPAY | PROVIDERS: Admitting Provider Nurse Practitioner Acute Care; Emergency Provider Emergency Medicine Emergency Medical Services; PCP Family Medicine; Visit Provider Nurse Practitioner Acute Care | DX: J10.1 Influenza due to other identified influenza virus with other respiratory manifestations (principal) | CPT/HCPCS: 99223; 99232; 99499 ==

== ENCOUNTER → 2025-06-27 10:55 | Outpatient (BNV) | payer MEDICARE, OTHER, SELFPAY | PROVIDERS: Admitting Provider Nurse Practitioner Acute Care; Emergency Provider Emergency Medicine Emergency Medical Services; PCP Family Medicine; Visit Provider Internal Medicine Pulmonary Disease | DX: J10.1 Influenza due to other identified influenza virus with other respiratory manifestations (principal); J44.1 Chronic obstructive pulmonary disease with (acute) exacerbation; J96.21 Acute and chronic respiratory failure with hypoxia | CPT/HCPCS: 99222 ==

== ENCOUNTER 2025-08-06 10:27 | Outpatient (AMB) | payer MEDICARE, OTHER, SELFPAY ==
[2025-08-06 10:36] VITALS: BP 128/70; PULSE 113; O2SAT 90; BMI 25.1
--- NOTE | 2025-08-06 10:36 | A.OFFVIS_ITS ---
Vital Signs 08/06/25 10:36 Height 5 ft 4 in Weight 146 lb BMI 25.1 BP 128/70 Blood Pressure Location Lt brachial Position Sitting Pulse 113 H Pulse Source Pulse Oximeter Pulse Oximetry (%) 90 L Oxygen Delivery Method Nasal Cannula Oxygen Flow Rate 4 Intake Visit Reasons: COPD/ [facility] ED FU Allergies No Known Allergies Allergy (Verified 08/06/25 10:39) HPI HPI COPD/ [facility] ED FU: Details: Bernie is a pleasant 70 year old female, former 30 pack year smoker, quit 18 yr s ago, with underlying severe COPD on supplemental oxygen 3L with exertion, asthma and h/o acute respiratory failure with hypoxemia 11/2023 and 06/2024. She reports moderate control of respiratory symptoms using Breztri, DuoNeb, Acapella valve and Daliresp. She continues to be active walking 1-2 miles per day using 3L of supplemental oxygen with exertion and using 3-4 L NOC (recommendations for 2L). Prior chest CT from March 2025 revealed decreased nodule of right upper lobe to 5 mm with recommendations for 6 month follow-up, which is scheduled for September 2025. Since the last visit she has been admitted to [facility] 06/27/2025 to 07/05/2025 for acute on chronic hypoxic respiratory failure due to influenza pneumonia with COPD exacerbation. She was treated with oseltamivir, azithromycin, ceftriaxone, IV steroids and nebulizer treatments, ultimately discharged with 16 day taper of prednisone, which she completed July 11. She did not require BiPAP therapy during this stay. Following discharge, the patient felt well and went on a cruise on July 14, where her oxygen saturations were reportedly in the low 90s even while dancing. However, symptoms began to return about a week after her hospitalization and worsened after completing the prednisone taper. Over the last 2 to 4 days, she has developed a cough productive of phlegm, which became slightly yellowish, along with increased dyspnea and wheezing. She denies fevers, chills or chest congestion, likely had multiple sick contacts on cruise. The patient was recently prescribed medications for anxiety by her primary care provider, including daily escitalopram (Lexapro) and as-needed hydroxyzine. She reports feeling incoherent, drowsy, and like a zombie after taking hydroxyzine, leading to her decision to stop the daily anxiety medication as well. She also notes new onset hearing loss since her last hospitalization, which PCP is aware and considering hearing evaluation. [facility] Medical History COPD (chronic obstructive pulmonary disease) Opioid dependence Chronic low back pain Pulmonary nodule Surgical History History of tonsillectomy H/O: section History of cholecystectomy Social History Household Members: Spouse and Family Housing: House Do you presently have visiting nurse or other home services: No Alcohol intake: current Alcohol intake frequency: a few times a month Patient Tobacco Use Status: Former Tobacco user Tobacco use type: Cigarette Cigarette Packs Per Day: 1 Years Smoked: 30 service: No Current occupational status: retired 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 Review of Systems Const Denies chills, Denies excessive sweating, Denies fever(s), Denies headache(s) and Denies night sweats Eyes Denies dry eyes, Denies irritation and Denies itchy eyes ENT Reports Normal hearing present, Denies headache(s), Denies nasal congestion, Denies nasal discharge, Denies post nasal drip and Denies sore throat Card Denies chest pain, Denies chest pain at rest, Denies chest pain with activity, Denies claudication, Denies leg edema, Reports dyspnea on exertion, Denies orthopnea and Denies paroxysmal nocturnal dyspnea Resp Reports change in phlegm color, Reports cough, Denies hemoptysis, Denies pain on inspiration, Denies pain with cough, Reports dyspnea on exertion, Denies stridor and Reports wheezing Musc Denies myalgias Neuro Reports Normal hearing present and Denies headache(s) Endo Denies excessive sweating Miguel/Lymph Denies lymphadenopathy Aller/Immun Denies itchy eyes, Denies seasonal rhinorrhea and Reports wheezing Physical Exam Vital Signs: Last Vital Signs Pulse 113 H 08/06/25 10:36 BP 128/70 08/06/25 10:36 Pulse Ox 90 L 08/06/25 10:36 Oxygen Delivery Method Nasal Cannula 08/06/25 10:36 Oxygen Flow Rate 4 08/06/25 10:36 BMI result Body Mass Index 25.1 Const General: cooperative, no acute distress, well developed and alert Orientation/consciousness: patient oriented x3 Limitations: no limitations HEENT Head: Yes normal to inspection, Yes normocephalic and Yes atraumatic Ears: hearing grossly normal bilaterally and external ears normal Eyes General: appearance normal, both eyes and all related structures Eyelids: Yes eyelids normal Sclerae: sclerae normal EOM: EOMs intact bilaterally Neck Neck: Yes normal visual inspection and Yes no lymphadenopathy Lymphatic: no lymphadenopathy noted Chest Chest palpation & inspection: normal inspection of the chest Resp Effort & Inspection: normal respiratory effort, able to speak in complete sentences, no stridor, not tachypneic, no tripod positioning and no use of accessory muscles Auscultation: rhonchi, wheezes expiratory wheezes and scattered wheezes and diminished lung sounds Cardio Jugular venous distension: no JVD Rate: regular rate Rhythm: regular rhythm Skin Other: warm, dry General skin exam: no rashes or lesions noted Neuro General: patient oriented x3 Cranial nerves: Yes Normal hearing present Cognition (Neuro): normal cognition Gait exam (Neuro): Normal gait present Extrem General: Yes normal to inspection, Yes capillary refill normal, Yes no clubbing, cyanosis or edema and Yes no pedal edema Psych Appearance: grossly normal and well kempt Speech and movement: Normal speech and movement present and Clear speech present Affect: normal affect Attitude: cooperative Thought process: Normal thought process present Thought content: Normal thought content present Insight: Good insight present (Psych) Judgement: Good judgement present (Psych) Assessment & Plan Assessment & Plan (1) COPD (chronic obstructive pulmonary disease): Code(s): J44.9 - Chronic obstructive pulmonary disease, unspecified Category: Medical Qualifiers: COPD type: COPD with acute exacerbation Qualified Code(s): J44.1 - Chronic obstructive pulmonary disease with (acute) exacerbation (2) Pulmonary nodule: Code(s): R91.1 - Solitary pulmonary nodule Category: Medical (3) History of acute respiratory failure: Code(s): Z87.09 - Personal history of other diseases of the respiratory system Category: Medical Plan Will treat current exacerbation with a longer taper of prednisone and cefpodoxime. We discussed that given the recurrence of her symptoms off steroids, she may be a candidate for a daily low-dose of prednisone to maintain quality of life, and we weighed the benefits against the long-term risks. Advised to continue current regimen of Breztri, Daliresp, and DuoNebs. She is aware to call if symptoms do not improve and seek emergent care symptoms worsen. Discussed importance of maintaining oxygen saturation greater than 90%, she is currently using 3-4 L pulse dosing to achieve this. Orders have been placed to assess immune function given frequency of infections. Consider labs at next visit to assess candidacy for biologic therapy, previously low eosinophil count. An order for overnight oximetry will be placed to ensure that 3 L resolves nocturnal hypoxemia. Patient has been more questioning intermediate macrolide therapy however advised against this given new onset of hearing loss. We discussed the sedating side effects of her new anxiety medication, and recommended she speak with her primary care provider about this. Reinforced the importance of infection prevention given frequent traveling, she is up-to-date with vaccinations at this time. We again discussed potential sleep study as prior overnight oximetry revealed 5 oxygen desaturation events per hour however patient continues to decline. Prior chest CT from March 2025 revealed decreased nodule of right upper lobe to 5 mm with recommendations for 6 month follow-up, which is scheduled for September 2025. All questions were answered and patient is in agreement of plan. Will follow-up to review results of CT or sooner if needed. Orders: Orders Immunoglobulin G Subclasses Today J18.9 - Pneumonia, unspecified organism Overnight Pulse Oximetry Today G47.34 - Idiopathic sleep related nonobstructive alveolar hypoventilation Immunoglobulins,IgG IgA IgM Today J18.9 - Pneumonia, unspecified organism Medications: New cefpodoxime must administer with a meal/food 200 mg PO BID 20 tabs 0RF prednisone Take 4 pills daily for 5 days, then go down by 1 pill every 5 days; 20 days 50 tabs 0RF 10 mg PO DIRECTED 50 tabs 0RF Coding Level of Care Code Est Pt Level 4 (53493) Complex visit Add On G2211 Diagnoses Chronic obstructive pulmonary disease with acute exacerbation J44.1 COPD type: COPD with acute exacerbation Pulmonary nodule R91.1 History of acute respiratory failure Z87.09
== END 2025-08-06 11:26 | disposition home or self-care (01) ==
LOC: HO.HPSW 10:28
PROVIDERS: PCP Family Medicine; Visit Provider Nurse Practitioner Family
DX: J44.1 Chronic obstructive pulmonary disease with (acute) exacerbation (principal); R91.1 Solitary pulmonary nodule; Z87.09 Personal history of other diseases of the respiratory system
CPT/HCPCS: 99214; G2211

== ENCOUNTER 2025-08-07 20:47 | Inpatient (IN) | payer MEDICARE, OTHER, SELFPAY ==
--- NOTE | ~2025-08-07 | XR_ITS ---
CLINICAL HISTORY: Dyspnea 1 view chest x-ray Comparison: CR - XR CHEST 1V - 06/27/25 21:21 EDT Findings: Bilateral scarring/emphysematous changes. Bibasilar hazy airspace opacities. Heart size is normal. No acute fracture. IMPRESSION: 1. Emphysematous changes with bibasilar hazy airspace opacities suspicious for superimposed pneumonia. This document has been electronically signed by: Yvonne Mistry MD on 08/07/2025 23:22:21
--- NOTE | 2025-08-07 20:53 | ECG_ITS ---
Test Reason : SOB Blood Pressure : */* mmHG Vent. Rate : 111 BPM Atrial Rate : 111 BPM P-R Int : 122 ms QRS Dur : 94 ms QT Int : 336 ms P-R-T Axes : 77 73 77 degrees QTcB Int : 456 ms Sinus tachycardia Otherwise normal ECG When compared with ECG of 27-Jun-2025 22:26, No significant change was found Referred By: Generic ED Physician Electronically Signed By: ARTEMIO RODRIGES
--- NOTE | 2025-08-07 21:07 | ED.SOB ---
HPI - SOB/Dyspnea General Chief Complaint: Dyspnea Stated Complaint: DIFF BREATHING X2D,78% RA H/O COPD Time Seen by Provider: 08/07/25 20:59 History of Present Illness HPI Narrative: Patient is a 70-year-old female with a history of pneumonia, COPD. Baseline not on oxygen. Complaining of increasing shortness of breath over the last 1-2 days. Positive coughing positive upper respiratory symptoms positive generalized malaise. Positive weakness. No chest pain or diaphoresis. No history of congestive heart failure. Related Data Home Medications ?Medication ?Instructions ?Recorded ?Confirmed hydrochlorothiazide 12.5 mg tablet 12.5 mg PO DAILY 05/21/22 06/27/25 morphine 15 mg tablet,extended 15 mg PO BID 05/21/22 06/27/25 release oxycodone 10 mg tablet 10 mg PO QID PRN Pain, Moderate 05/21/22 06/27/25 albuterol sulfate 90 mcg/actuation 2 puff inhalation Q4H PRN 11/11/23 06/27/25 aerosol inhaler shortness of breath or wheezing alendronate 70 mg tablet 70 mg PO MO@0900 11/11/23 06/27/25 amlodipine 10 mg tablet 10 mg PO DAILY 11/11/23 06/27/25 docusate sodium 100 mg capsule 100 mg PO DAILY 11/11/23 06/27/25 ibuprofen 800 mg tablet 800 mg PO TID PRN Pain 11/11/23 06/27/25 multivitamin 1 tab PO DAILY 11/11/23 06/27/25 naloxone 0.4 mg/mL injection 0.4 mg subcut Q3M PRN overdose 11/11/23 06/27/25 solution escitalopram oxalate 10 mg tablet 10 mg PO DAILY 06/27/25 06/27/25 fluticasone propionate 50 2 spray intranasal BEDTIME 06/27/25 06/27/25 mcg/actuation nasal spray,suspension hydroxyzine HCl 25 mg tablet 25 mg PO TID PRN Anxiety 06/27/25 06/27/25 potassium chloride 20 mEq 20 meq PO DAILY 06/27/25 06/27/25 tablet,extended release Previous Rx's ?Medication ?Instructions ?Recorded roflumilast 500 mcg tablet 500 mcg PO DAILY #90 tabs 04/02/25 (Daliresp) budesonide 160 mcg-glycopyr 9 2 inh inhalation BID #3 ea 06/04/25 mcg-formot 4.8 mcg/actuation HFA inhaler (Breztri [employer]) ipratropium 0.5 mg-albuterol 3 mg 3 ml inhalation QID PRN Wheezing 06/08/25 (2.5 mg base)/3 mL nebulization #180 mL soln cefpodoxime 200 mg tablet 200 mg PO BID #20 tabs 08/06/25 prednisone 10 mg tablet 10 mg PO DIRECTED #50 tabs 08/06/25 Allergies Allergy/AdvReac Type Severity Reaction Status Date / Time No Known Allergies Allergy Verified 08/07/25 21:11 Review of Systems Review of Systems: Positive shortness of breath positive coughing positive generalized malaise Yes all other systems are reviewed and are negative [facility] Past Medical History Attestation statement: The following information was validated with the patient. Medical History COPD (chronic obstructive pulmonary disease) Opioid dependence Chronic low back pain Pulmonary nodule Surgical History History of tonsillectomy H/O: section History of cholecystectomy Social History Social History Household Members: Spouse and Family Housing: House Do you presently have visiting nurse or other home services: No Alcohol intake: current Alcohol intake frequency: does not drink Patient Tobacco Use Status: Former Tobacco user Tobacco use type: Cigarette Cigarette Packs Per Day: 1 Years Smoked: 30 Smoked in Last 30 Days: No Use of substances other than those prescribed or required for medical reasons: No Advance Directives: No Advance Directives Information Provided: No Do you have a plan to hurt others: No Plan service: No Current occupational status: retired 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 Oriented X3. No acute distress. Eyes: Pupils equal, round and reactive to light. ENT: Pharynx normal. Neck: Normal inspection. Neck supple. No lymph nodes noted. No crepitus CVS: Normal heart rate and rhythm. Pulses normal. Normal S1 and S2 Respiratory: Positive shortness of breath diminished breath sounds bilaterally increased work of breathing Abdomen: Soft and nontender. No rigidity. No distention. good BS x4 Skin: Skin warm and dry. Normal skin color. Normal skin turgor. Extremities: No lower extremity edema. Neurovascular intact to all extremities. No Lacerations. No Rash Neuro: Oriented X 3. No motor deficit. No sensory deficit. Moving all extermities. No slurred speech Vital Signs: Vital Signs: Last Vital Signs Temp 97.8 F 08/07/25 22:11 Pulse 123 H 08/07/25 23:29 Resp 22 H 08/07/25 23:29 BP 148/68 H 08/07/25 22:11 Pulse Ox 91 L 08/07/25 22:11 O2 Del Method Nasal Cannula 08/07/25 22:11 O2 Flow Rate 6 08/07/25 22:11 BMI result Body Mass Index 30.0 Medications Administered Discontinued Medications Generic Name Dose Route Start Last Admin Trade Name Freq PRN Reason Stop Dose Admin Albuterol Sulfate 7.5 mg/ 10 mg 08/07/25 21:08 08/07/25 21:14 Albuterol Sulfate 2.5 mg INHALE 08/07/25 21:09 10 mg ONCE ONE Administration Albuterol Sulfate 7.5 mg/ 10 mg 08/07/25 21:24 08/07/25 21:25 Albuterol Sulfate 2.5 mg INHALE 08/07/25 21:25 10 mg ONCE ONE Administration Magnesium Sulfate 2 gm in 50 mls @ 150 mls/hr 08/07/25 21:05 08/07/25 21:38 Magnesium Sulfate/H2o IV 08/07/25 21:24 Infused ONCE ONE Infusion Cefepime HCl 1 gm/ Sodium 50 mls @ 100 mls/hr 08/07/25 21:07 08/07/25 22:06 Chloride IV 08/07/25 21:36 Infused ONCE ONE Infusion Levalbuterol HCl 5 mg 08/07/25 23:23 08/07/25 23:26 Levalbuterol Hcl 1.25 Mg/3 Ml Vial.Neb INHALE 08/07/25 23:24 5 mg ONCE ONE Administration Methylprednisolone Sodium Succinate 125 mg 08/07/25 21:05 08/07/25 21:14 Methylprednisolone Sod Succ 125 Mg/2 Ml Vial IVPUSH 08/07/25 21:06 125 mg ONCE ONE Administration Medical Decision Making Medical Decision Making MDM Narrative: Patient is 70 years old presents today with having shortness of breath ongoing for the last 2 days history of COPD baseline not on oxygen. EMS found patient to be satting at 70% initially. Given O2 given neb treatments steroid magnesium monitored in the ED. Patient's VBG by my interpretation showed no CO2 retention. My interpretation patient's chest x-ray is suggestive of COPD. Patient is radiology's interpretation showed question pneumonia her lactate is 2.0. COVID flu RSV was negative. We did give empiric antibiotics for treatment of possible pneumonia. Cultures were obtained. Patient's BNP is normal there is no evidence for congestive heart failure. Case consulted with the hospitalist team. Will admit patient for further evaluation. Differential Diagnosis Congestive heart failure pneumonia COPD flu COVID RSV respiratory failure CO2 retention Admission/Observation Consideration of admission/observation: Escalation of care including admission/observation considered Consult Healthcare Provider Management of the patient was discussed with: Hospitalist Lab Data MDM Lab Attestation statement: I reviewed the patient's lab results. 08/07/25 21:03 08/07/25 21:03 Labs: Lab Results 08/07/25 08/07/25 08/07/25 Range/Units 21:03 21:07 21:32 WBC 3.7 L (4.8-10.8) X10*3/uL RBC 4.96 (4.20-5.50) X10*6/uL Hgb 14.9 (12.0-16.0) g/dl Hct 43.4 (37.0-47.0) % MCV 87.5 (80.0-98.0) fL MCH 30.0 (27.0-33.0) pg MCHC 34.3 (31.0-35.0) g/dl RDW 12.8 (11.0-16.0) % Plt Count 176 D (160-400) X10*3/uL MPV 9.3 L (9.4-12.3) fL Immature Gran % (Auto) 0.5 H (0.0-0.4) % Neut % (Auto) 83.0 H (45-73) % Lymph % (Auto) 9.2 L (20-40) % Medina % (Auto) 7.3 (2-11) % Eos % (Auto) 0.0 (0-4) % Baso % (Auto) 0.0 (0-2) % Lymph # (Auto) 0.3 L (1.2-4.9) X10*3/uL Medina # (Auto) 0.3 (0.1-1.2) X10*3/uL Eos # (Auto) 0.0 (0.0-0.4) X10*3/uL Baso # (Auto) 0.0 (0.0-0.2) X10*3/uL Abs Immat Gran (auto) 0.02 (0.00-0.03) X10*3/uL Absolute Neuts (auto) 3.1 (2.0-8.3) x10*3/uL Absolute Nucleated RBC 0.000 (0.0-0.012) X10*3/uL Nucleated RBC % (auto) 0.0 (0.0-0.2) /100WBC VBG pH 7.35 (7.32-7.43) VBG pCO2 67 mmHg VBG pO2 34 mmHg VBG HCO3 37 H (22-26) mmol/L VBG O2 Saturation 41.0 % VBG Base Excess 8.6 mmol/L Sodium 140 (135-145) mmol/L Potassium 3.1 L D (3.3-5.1) mmol/L Chloride 96 (96-108) mmol/L Carbon Dioxide 32 H (22-29) mmol/L Anion Gap 15 (12-20) BUN 9 (9-16) mg/dL Creatinine 0.63 (0.5-1.4) mg/dL Estim Creat Clear Calc 83.5 Estimated GFR > 60 Random Glucose 221 H (60-115) mg/dL Lactic Acid 2.0 (0.5-2.0) mmol/L Calcium 9.3 D (8.4-10.2) mg/dL Total Bilirubin 0.5 (0.0-1.0) mg/dL AST 43 H (5-31) U/L ALT 32 H (0-31) U/L Alkaline Phosphatase 69 (39-117) U/L Troponin I High Sens 2.8 (<3.5-17.0) ng/L NT-Pro-B Natriuret Pep 185.6 (<300) pg/mL Total Protein 7.7 (6.5-8.0) g/dL Albumin 4.7 (3.5-5.0) g/dL Influenza Type A (PCR) NEGATIVE (Negative) Influenza Type B (PCR) NEGATIVE (Negative) RSV RNA Qual (PCR) NEGATIVE (Negative) SARS-CoV-2 RNA (RT-PCR) NEGATIVE (Negative) Independent Interpretation I performed an independent interpretation of an: EKG (Sinus heart rate is 110 [place] QRS QTC normal no acute ST segment elevation) and Plain X-Ray Radiology Impression Discussion of test interpretation with radiology: I have reviewed the radiologist's reading. Independent Historian Clinical information obtained from an independent historian. History obtained from or confirmed by: EMS External Record Review External record reviewed: Inpatient record Chronic Conditions COPD Social Determinants Patient?s care significantly limited by Social Determinants of Health including: Problems related to primary support group Critical Care Time Critical Care Time Critical Care Time: Yes Total Critical Care Time: 40 Attestation: I have personally provided 40 minutes of critical care time exclusive of time spent on separately billable procedures. ?Time includes review of lab data, radiology results, discussion with consultants, and monitoring for potential decompensation. ?Interventions were performed as documented above Discharge Plan Discharge Clinical Impression: COPD (chronic obstructive pulmonary disease), Pneumonia Patient Disposition: Admitted As Inpatient Print Language: Bruneian
[2025-08-07 21:08] VITALS: BP 150/88; PULSE 111; PULSE 115; RESP 20; O2SAT 78; O2SAT 92
[2025-08-07 21:10] LABS: Hematocrit 43.4 % (37.0-47.0); Hemoglobin 14.9 g/dl (12.0-16.0); Imm Gran Abs Auto 0.02 X10*3/uL (0.00-0.03); Imm Gran Pct Auto 0.5 % (0.0-0.4); Lymphocytes Absolute Auto 0.3 X10*3/uL (1.2-4.9); MANUAL DIFF FLAG NO; Mean Corpuscular HGB Conc 34.3 g/dl (31.0-35.0); Mean Corpuscular Hemoglobin 30.0 pg (27.0-33.0); Mean Corpuscular Volume 87.5 fL (80.0-98.0); NRBC Abs Auto 0.000 X10*3/uL (0.0-0.012); NRBC Pct Auto 0.0 /100WBC (0.0-0.2); Platelet Count 176 X10*3/uL (160-400); Red Blood Count 4.96 X10*6/uL (4.20-5.50); White Blood Count 3.7 X10*3/uL (4.8-10.8)
--- OUTSIDE RECORDS SUMMARY | 2025-08-07 21:10 | XMS_ITS | Encounter Summary ---
Author Organization [facility] Address [address] [place] [address] [place] [phone] Phone Care Team Providers Care Insurance And Financial Services Agent Name Role Phone Vilma Bentley Primary Care Provider [phone] Encounter Details Date Type Department Care Team (Late Contact Info) Description 02/03/2019 Procedure Pass [facility] Endoscopy Admitting Dept Virtual Department [address] [place] [id number] Social History Tobacco Use Types Packs/Day Years [...] Description 08/19/2025 11:30 AM EST Office Visit [facility] [address] [place] [address] Unknown, Unknown, Alethea Najera, DRY KILN BURNER [address] [id number] [email or web address] documented as of this encounter Visit Diagnoses Not on filedocumented in this encounter Care Teams Insurance And Financial Services Agent Relationship Specialty Start Date End Date Vilma Bentley PA [address] [place] [phone] PCP - General Resource Specialist 05/08/18 documented as of this encounter Additional Source Comments The information contained in this document represents components of the legal health record. It is not the complete legal health record.[facility]
--- OUTSIDE RECORDS SUMMARY | 2025-08-07 21:11 | XMS_ITS | Clinical Summary ---
Author Organization [facility] Address [address] [address] Phone Care Team Providers Care Metal Window Screen Assembler Name Role Phone Michi Stout Primary Care Provider [phone]- [phone] Allergies Active Allergy Reactions Criticality Noted Date [...] Description 08/19/2025 11:30 AM EST Office Visit [facility] [address] [place] [phone] Unknown, Unknown, Alethea Najera, CERTIFIED ORTHOTIC FITTER [address] [place] [phone] [email or web address] Health Maintenance Due Date Last Done [...] 64 Admit Type: Outpatient Gender: Female Room: [place] [address] Referring MD: MICHI STOUT MD Exam Type: [...] monitored continuously. The Olympus adult variable colonoscope [id number] #[id number] was introduced through the anus and [...] 8:50 AM Procedure Code(s): --- Professional --- 48326, Colonoscopy, flexible; diagnostic, including collection of specimen(s) by brushing or washing, when performed (separateprocedure) --- Technical --- 90549, Colonoscopy, flexible; diagnostic, including collection of specimen(s) by brushing or washing, when performed (separateprocedure) Diagnosis Code(s): --- Professional --- R19.5, Other fecal abnormalities Z80.0, Family history of malignant neoplasm of digestive organs --- Technical --- R19.5, Other fecal abnormalities Z80.0, Family history of malignant neoplasm of digestive organs CPT copyright 2016 [employer]. All rights reserved. The codes documented in this report are preliminary and upon dialysis tech reviewmay be revised to meet current compliance requirements. [address] [place] [address] Michi VILLALOBOS GI PROCEDURE ORDERABLES Fi nal Result from Last 3 Months or Most Recently Relevant to Health Maintenance [place] [address] MEDICARE PART A & B [address] [place], [place] [address] [address] MEDICARE PART A & B [address] [place], [place] [address] [address] MEDICARE PART A & [place] [address] MEDICARE PART A & [place] [address] MEDICARE PART A & [place] [address] [place] [address] MEDICARE PART A & [place] [address] MEDICARE PART A & [place] [address] [place] [address] MEDICARE PART A [place] [address] MEDICARE PART A & B Care Teams Metal Window Screen Assembler Relationship Specialty Start Date End Date Michi Stout PA [address] [place] [phone] PCP - General Compliance Monitor 05/08/18 Additional Source Comments The information contained in this document represents components of the legal health record. It is not the complete legal health record.[facility]
--- OUTSIDE RECORDS SUMMARY | 2025-08-07 21:11 | XMS_ITS | Encounter Summary ---
Author Organization [facility] Address [address] [place] [id number] Phone Care Team Providers Care Demolition Specialist Name Role Phone Vilma Bentley Primary Care Provider [phone] Encounter Details Date Type Department Care Team (Late st Contact Info) Description 10/07/2018 Procedure Pass [facility] Endoscopy Admitting Dept Virtual Department [address] [place] [id number] Social History Tobacco Use Types Packs/Day Years [...] Description 08/19/2025 11:30 AM EST Office Visit [facility] [address] [place] [address] Unknown, Unknown, Alethea Najera, POWER EQUIPMENT TECHNOLOGY INSTRUCTOR [address] [id number] [email or web address] documented as of this encounter Visit Diagnoses Not on filedocumented in this encounter Care Teams Demolition Specialist Relationship Specialty Start Date End Date Vilma Bentley PA [address] [place] [id number] PCP - General Sawyer Helper 05/08/18 documented as of this encounter Additional Source Comments The information contained in this document represents components of the legal health record. It is not the complete legal health record.[facility]
[2025-08-07 21:13] LABS: VBG HCO3 37 mmol/L (22-26); VBG O2 % Saturation 41.0 %
[2025-08-07] MEDS: Magnesium Sulfate/H2O 2 GM/50 ML PIGGYBACK IV (21:14)
[2025-08-07] MEDS: Albuterol Sulfate 7.5 MG, Albuterol Sulfate (0.083%) 2.5 MG 10 MG INHALE ×2 (21:14→21:25)
[2025-08-07 21:16] LABS: Venous Blood Gas Refer to POC result
[2025-08-07 21:23] LABS: Alanine Aminotransferase 32 U/L (0-31); Albumin Level 4.7 g/dL (3.5-5.0); Alkaline Phosphatase 69 U/L (39-117); Anion Gap 15 (12-20); Aspartate Amino Transferase 43 U/L (5-31); Blood Urea Nitrogen 9 mg/dL (9-16); Calcium 9.3 mg/dL (8.4-10.2); Carbon Dioxide 32 mmol/L (22-29); Chloride 96 mmol/L (96-108); Creatinine Clr Calc Pharmacy 83.5; Estimated Glomerular Filt Rate > 60; Potassium 3.1 mmol/L (3.3-5.1); Sodium 140 mmol/L (135-145); Total Protein 7.7 g/dL (6.5-8.0)
[2025-08-07 21:26] VITALS: PULSE 115; RESP 20; O2SAT 93
[2025-08-07 21:30] LABS: Troponin-I High Sensitivity 2.8 ng/L (<3.5-17.0)
[2025-08-07 21:38] VITALS: BP 142/72; PULSE 122; RESP 30; TEMP 36.8; O2SAT 91
[2025-08-07 21:49] LABS: Resp Syncy Virus RNA Qual PCR NEGATIVE (Negative); SARS COV2 PCR INHOUSE NEGATIVE (Negative)
[2025-08-07 21:52] LABS: NT Pro B Type Natriuretic Pept 185.6 pg/mL (<300)
[2025-08-07 22:11] VITALS: BP 148/68; PULSE 123; RESP 20; TEMP 36.6; O2SAT 91
[2025-08-07 23:29] VITALS: PULSE 123; RESP 22; O2SAT 93
[2025-08-08] VITALS (10 sets, daily range): BP systolic 144–155; BP diastolic 66–79; PULSE 98–122; RESP 15–30; TEMP 36.3–36.8; O2SAT 88–95; BMI 26.9
--- NOTE | 2025-08-08 00:43 | PM.IMHP ---
History of Present Illness Date of Service: 08/08/25 Chief Complaint: Shortness of breath 70-year-old female with a past medical history of asthma/COPD, anxiety, chronic pain; presented to the hospital today with a chief complaint of shortness of breath. Patient reported the past couple days she has been having shortness of breath which has been gradually worsening. Reports having cough. Denies any fevers. Denies any chest pain or palpitations. Denies any GI symptoms. Review of all other systems is negative except mentioned above ER course: Per ER team, patient noted to be tachypneic, tachycardic, hypoxic; placed on supplemental oxygen; blood gas appears compensated. Chest x-ray showed possible pneumonia. Given antibiotics. Given nebulizations and steroids. Not in respiratory distress. [facility] Medical History COPD (chronic obstructive pulmonary disease) Opioid dependence Chronic low back pain Pulmonary nodule Surgical History History of tonsillectomy H/O: section History of cholecystectomy Social History Household Members: Spouse and Family Housing: House Do you presently have visiting nurse or other home services: No Alcohol intake: current Alcohol intake frequency: does not drink Patient Tobacco Use Status: Former Tobacco user Tobacco use type: Cigarette Cigarette Packs Per Day: 1 Years Smoked: 30 Smoked in Last 30 Days: No Use of substances other than those prescribed or required for medical reasons: No Advance Directives: No Advance Directives Information Provided: No Do you have a plan to hurt others: No Plan service: No Current occupational status: retired 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 Meds Allergies Allergy/AdvReac Type Severity Reaction Status Date / Time No Known Allergies Allergy Verified 08/07/25 21:11 Home Medications ?Medication ?Instructions ?Recorded ?Confirmed ?Last Taken ?Type hydrochlorothiazide 12.5 mg tablet 12.5 mg PO DAILY 05/21/22 06/27/25 06/26/25 History morphine 15 mg tablet,extended 15 mg PO BID 05/21/22 06/27/25 06/26/25 History release oxycodone 10 mg tablet 10 mg PO QID PRN Pain, Moderate 09/06/27/25 06/26/25 History albuterol sulfate 90 mcg/actuation 2 puff inhalation Q4H PRN 11/11/23 06/27/25 Unknown History aerosol inhaler shortness of breath or wheezing alendronate 70 mg tablet 70 mg PO MO@0900 11/11/23 06/27/25 06/26/25 History amlodipine 10 mg tablet 10 mg PO DAILY 11/11/23 06/27/25 06/26/25 History docusate sodium 100 mg capsule 100 mg PO DAILY 11/11/23 06/27/25 06/26/25 History ibuprofen 800 mg tablet 800 mg PO TID PRN Pain 11/11/23 06/27/25 Unknown History multivitamin 1 tab PO DAILY 11/11/23 06/27/25 06/26/25 History naloxone 0.4 mg/mL injection 0.4 mg subcut Q3M PRN overdose 11/11/23 06/27/25 Unknown History solution escitalopram oxalate 10 mg tablet 10 mg PO DAILY 06/27/25 06/27/25 06/26/25 History fluticasone propionate 50 2 spray intranasal BEDTIME 06/27/25 06/27/25 06/26/25 History mcg/actuation nasal spray,suspension hydroxyzine HCl 25 mg tablet 25 mg PO TID PRN Anxiety 06/27/25 06/27/25 Unknown History potassium chloride 20 mEq 20 meq PO DAILY 06/27/25 06/27/25 06/26/25 History tablet,extended release Physical Exam Vital Signs and Narrative: Vital Signs: Last Vital Signs Temp 97.8 F 08/07/25 22:11 Pulse 123 H 08/07/25 23:29 Resp 22 H 08/07/25 23:29 BP 148/68 H 08/07/25 22:11 Pulse Ox 91 L 08/07/25 22:11 O2 Del Method Nasal Cannula 08/07/25 22:11 O2 Flow Rate 6 08/07/25 22:11 BMI result Body Mass Index 30.0 Gen: Appears be in no acute distress HEENT: NCAT, Moist mucosa. Pulmonary: Coarse breath sounds CVS: Normal S1-S2 Abdomen: BS+, Soft, Nontender Extremities: Warm well perfused Neuro: Alert and awake. Results Labs 08/07/25 21:03 08/07/25 21:03 Labs: Laboratory Results - last 24 hr 12/06/25 12/06/25 12/06/25 21:03 21:07 21:32 MCV 87.5 MCH 30.0 MCHC 34.3 RDW 12.8 Plt Count 176 D MPV 9.3 L Immature Gran % (Auto) 0.5 H Neut % (Auto) 83.0 H Lymph % (Auto) 9.2 L [place] % (Auto) 7.3 Eos % (Auto) 0.0 Baso % (Auto) 0.0 Lymph # (Auto) 0.3 L [place] # (Auto) 0.3 Eos # (Auto) 0.0 Baso # (Auto) 0.0 Abs Immat Gran (auto) 0.02 Absolute Neuts (auto) 3.1 Absolute Nucleated RBC 0.000 Nucleated RBC % (auto) 0.0 VBG pH 7.35 VBG pCO2 67 VBG pO2 34 VBG HCO3 37 H VBG O2 Saturation 41.0 VBG Base Excess 8.6 Anion Gap 15 Estim Creat Clear Calc 83.5 Estimated GFR > 60 Random Glucose 221 H Lactic Acid 2.0 Calcium 9.3 D Total Bilirubin 0.5 AST 43 H ALT 32 H Alkaline Phosphatase 69 Troponin I High Sens 2.8 NT-Pro-B Natriuret Pep 185.6 Total Protein 7.7 Albumin 4.7 Influenza Type A (PCR) NEGATIVE Influenza Type B (PCR) NEGATIVE RSV RNA Qual (PCR) NEGATIVE SARS-CoV-2 RNA (RT-PCR) NEGATIVE Assessment and Plan (1) Acute exacerbation of chronic obstructive pulmonary disease (COPD): Status: Acute Plan 70-year-old female with a past medical history of asthma/COPD, anxiety, chronic pain; presented to the hospital today with a chief complaint of shortness of breath. Admitted for following Acute hypoxic respiratory failure: Acute asthma/COPD exacerbation: Pneumonia: Continue ceftriaxone, azithromycin Continue nebulizations standing and p.r.n. Supplemental oxygen p.r.n. Trending pulse oximetric and ready for discharge Solu-Medrol IV Hypokalemia: Repleted DVT prophylaxis: Lovenox Code status: Full code Quality Stroke Does the patient have a stroke diagnosis?: No VTE Prior VTE?: No VTE Risk Level:: Medical - moderate - high VTE Device Contraindication: Treatment Not Indicated VTE Drug Contraindication: N/A - Med Ordered
[2025-08-08 01:35] LABS: D Dimer High Sensitivity 229 NG/ML
[2025-08-08] MEDS: Morphine Sulfate ER 15 MG TABLET.ER PO ×3 (01:57→20:57)
[2025-08-08 05:55] LABS: MANUAL DIFF FLAG NO
--- NOTE | 2025-08-08 05:55 | HO.NURTONUR ---
Addendum entered by Melba Leon RN 08/08/25 12:35: Update- Pt continued to have inc work of breathing and desat to 83% on 4LNC. Pt was placed on 6L oxymask with improvement. Marked SOB with exertion. Pt has been using BSC with 1 assist. 20gRAC. Home meds reconciled and ordered. Pt is pleasant, calm, cooperative Original Note: 70 Y F with hx of COPD/asthma presents with dyspnea. O2 sat at home 78% RA. Current on 4L NC with O2 sat between 90-92%. Tachypneic with RR 25-30's. Bilateral inspiratory and expiratory wheezes. Possible PNA. NSR on monitor. Being admitted for COPD exacerbation. 20 R AC and 22L wrist. Not ambulatory at this time as work of breathing increases with exertion. Hx of chronic pain, on schedule doses for pain BID.
[2025-08-08 05:57] LABS: Hematocrit 39.3 % (37.0-47.0); Hemoglobin 13.6 g/dl (12.0-16.0); Imm Gran Abs Auto 0.02 X10*3/uL (0.00-0.03); Imm Gran Pct Auto 0.6 % (0.0-0.4); Lymphocytes Absolute Auto 0.3 X10*3/uL (1.2-4.9); Mean Corpuscular HGB Conc 34.6 g/dl (31.0-35.0); Mean Corpuscular Hemoglobin 30.2 pg (27.0-33.0); Mean Corpuscular Volume 87.1 fL (80.0-98.0); NRBC Abs Auto 0.000 X10*3/uL (0.0-0.012); NRBC Pct Auto 0.0 /100WBC (0.0-0.2); Platelet Count 177 X10*3/uL (160-400); Red Blood Count 4.51 X10*6/uL (4.20-5.50); White Blood Count 3.6 X10*3/uL (4.8-10.8)
[2025-08-08 06:14] LABS: Alanine Aminotransferase 29 U/L (0-31); Albumin Level 4.4 g/dL (3.5-5.0); Alkaline Phosphatase 63 U/L (39-117); Anion Gap 15 (12-20); Aspartate Amino Transferase 37 U/L (5-31); Blood Urea Nitrogen 12 mg/dL (9-16); Calcium 8.7 mg/dL (8.4-10.2); Carbon Dioxide 30 mmol/L (22-29); Chloride 96 mmol/L (96-108); Creatinine Clr Calc Pharmacy 83.5; Estimated Glomerular Filt Rate > 60; Potassium 3.2 mmol/L (3.3-5.1); Sodium 138 mmol/L (135-145); Total Protein 6.9 g/dL (6.5-8.0)
[2025-08-08] MEDS: Albuterol/Iprat 2.5/0.5MG 3 ML AMPUL.NEB INHALE ×4 (07:44→19:49)
[2025-08-08] MEDS: 0.9 % Sodium Chloride Flush 3 ML SYRINGE IVFLUSH ×3 (09:23→20:58)
--- NOTE | 2025-08-08 11:23 | PHA.MEDREC ---
Addendum entered by Veena Dc RPh 08/08/25 12:27: REVIEWED BY PHARMACIST, SOME MEDS ARE FILLED BY [facility] AND THAT WHY NOT SHOWING IN CLAIM HISTORY Original Note: Pharmacy Consult ? Medication Reconciliation Pharmacy has completed the medication reconciliation. Confirmed medication list with patient and claims history. Patient states that primary care physician had patient increase dose to 25 mg. Patient claims to be on 2nd day of 5 day regimen of 4 tablets of 10 mg prednisone. patient claims they are using Ipratropium- Albuterol Nebulizer solution TID non-PRN.
--- NOTE | 2025-08-08 12:10 | PM.EVENT ---
Event Note Date of Service: 08/09/25 Event Note: Pt seen'/examined, labs meds, imaging reviewed. Admittd this morning with copd exacerbation with respiratory distress. Still very wheezy with some respiratory distress Increased steroid, continue Abx, monitor closely, pulmonology consult Time Spent With Patient Time: Total time managing care of this patient today ____ minutes.
[2025-08-08] MEDS: Magnesium Sulfate/H2O 2 GM/50 ML PIGGYBACK IV (13:24)
[2025-08-08] MEDS: oxyCODONE HCl Immed Release 5 MG TABLET 10 MG PO (14:20)
[2025-08-09] VITALS (11 sets, daily range): BP systolic 136–160; BP diastolic 70–88; PULSE 85–113; RESP 16–22; TEMP 36–36.8; O2SAT 89–93
[2025-08-09] MEDS: Albuterol/Iprat 2.5/0.5MG 3 ML AMPUL.NEB INHALE ×5 (01:18→19:39)
[2025-08-09] MEDS: 0.9 % Sodium Chloride Flush 3 ML SYRINGE IVFLUSH (08:35)
[2025-08-09] MEDS: Potassium Chloride ER 20 MEQ TAB.ER.PRT PO (08:36)
[2025-08-09] MEDS: Morphine Sulfate ER 15 MG TABLET.ER PO ×2 (08:36→21:16)
--- NOTE | 2025-08-09 11:39 | MHC.CM.PN ---
Jordy IMM was addressed with Patient.Patient lives in a house with her /HCP/Tristan, who [place] transport [place]. PCP is Dr. Bentley
--- NOTE | 2025-08-09 12:57 | P.PNIM_ITS ---
Subjective Subjective Date of Service: 08/09/25 Interval History: f/u acute on chronic hypoxic respiratory failure d/t copd exacerbation She is feeling better, but still strugle with breathing Review of Systems Positive shortness of breath positive coughing positive generalized malaise Physical Exam 2 Vital Signs: Vital Signs: Last Vital Signs Temp 98.2 F 08/09/25 07:40 Pulse 101 H 08/09/25 12:17 Resp 18 08/09/25 12:17 BP 156/70 H 08/09/25 10:59 Pulse Ox 89 L 08/09/25 10:59 O2 Del Method Oxymask 08/09/25 10:59 O2 Flow Rate 5 08/09/25 10:59 BMI result Body Mass Index 26.9 Const: Other: General: AO X 3, no acute distress Resp: some work of brething, mild wheezing, CVS: S1,S2,RRR GI: +BS, NT, no distention Skin: No rash Neuro: motor grossly intact Psych: appropriate affect Objective Data Active Medications Acetaminophen (Acetaminophen 325 Mg Tablet) 650 mg PO Q6H PRN PRN Reason: Pain, Mild 1-3,fever,headache Albuterol/Ipratropium (Albuterol/Iprat 2.5/0.5mg 3 Ml Ampul.Neb) 3 ml INHALE Q4H PRN PRN Reason: Shortness of Breath/Wheezing Albuterol/Ipratropium (Albuterol/Iprat 2.5/0.5mg 3 Ml Ampul.Neb) 3 ml INHALE RQ4H WHILE AWAKE [facility] Last Admin: 08/09/25 12:11 Dose: 3 ml Documented By: HORACIO Amlodipine Besylate (Amlodipine Besylate 10 Mg Tablet) 10 mg PO DAILY [facility]; Protocol Last Admin: 08/09/25 08:36 Dose: 10 mg Documented By: WILL Azithromycin (Azithromycin 500 Mg Tablet) 500 mg PO BEDTIME [facility] Last Admin: 08/08/25 20:58 Dose: 500 mg Documented By: LAURENCE Benzocaine (Throat Lozenge, Medicated Lozenge) 1 lozenge MUCOUS MEM Q2H PRN PRN Reason: Sore Throat Benzonatate (Benzonatate 100 Mg Capsule) 100 mg PO TID PRN PRN Reason: Cough Calcium Carbonate (Calcium Carbonate 750 Mg Tab.Chew) 750 mg PO Q4H PRN PRN Reason: Heartburn Docusate Sodium (Docusate Sodium 100 Mg Capsule) 100 mg PO DAILY [facility] Last Admin: 08/09/25 08:36 Dose: 100 mg Documented By: WILL Enoxaparin Sodium (Enoxaparin Sodium 40 Mg/0.4 Ml Syringe) 40 mg SUBCUT Q24H [facility] Last Admin: 08/09/25 08:35 Dose: 40 mg Documented By: WILL Escitalopram Oxalate (Escitalopram Oxalate 10 Mg Tablet) 10 mg PO BEDTIME [facility] Last Admin: 08/08/25 20:57 Dose: 10 mg Documented By: LAURENCE Fluticasone Propionate (Fluticasone Propionate Nasal 16 Gm [place]) 2 spray NOSTRIL-B BEDTIME [facility] Last Admin: 08/08/25 20:58 Dose: 2 spray Documented By: LAURENCE Hydrochlorothiazide (Hydrochlorothiazide 25 Mg Tablet) 25 mg PO DAILY [facility]; Protocol Last Admin: 08/09/25 08:36 Dose: 25 mg Documented By: WILL Hydromorphone HCl (Hydromorphone Hcl 0.5 Mg/0.5 Ml Syringe) 0.5 mg IVPUSH Q4H PRN; Protocol PRN Reason: Breakthrough Pain Last Admin: 08/09/25 00:09 Dose: 0.5 mg Documented By: LAURENCE Hydroxyzine HCl (Hydroxyzine Hcl 25 Mg Tablet) 25 mg PO TID PRN PRN Reason: Anxiety Last Admin: 08/09/25 10:19 Dose: 25 mg Documented By: WILL Ceftriaxone Sodium 1 gm/ (Sodium Chloride) 50 mls @ 100 mls/hr IV 2200 [facility] Last Infusion: 08/09/25 00:42 Dose: Infused Documented By: LAURENCE Magnesium Hydroxide (Milk Of Magnesia 30 Ml Oral.Susp) 30 ml PO DAILY PRN PRN Reason: Constipation Melatonin (Melatonin 3 Mg Tablet) 6 mg PO BEDTIME PRN PRN Reason: Insomnia Methylprednisolone Sodium Succinate (Methylprednisolone Sod Succ 40 Mg/Ml Vial) 60 mg IVPUSH Q6H [facility] Last Admin: 08/09/25 12:01 Dose: 60 mg Documented By: WILL Morphine Sulfate (Morphine Sulfate Er 15 Mg Tablet.Er) 15 mg PO BID [facility] Last Admin: 08/09/25 08:36 Dose: 15 mg Documented By: WILL Multivitamins/Vitamin C (Multivitamin Tablet) 1 tab PO DAILY [facility] Last Admin: 08/09/25 08:36 Dose: 1 tab Documented By: WILL Naloxone HCl (Naloxone Hcl 0.4 Mg/Ml Vial) 0.4 mg SUBCUT Q3M PRN PRN Reason: overdose Non-Formulary Medication (Mzxlsasxwi-Texqdbmd-Gbegaxbhfl [Breztri Aerosphere]) 2 inhalation INHALE RBID [facility] On Hold: 08/08/25 21:00 Oxycodone HCl (Oxycodone Hcl Immed Release 5 Mg Tablet) 10 mg PO QID PRN PRN Reason: Pain, Moderate(Pain Scale 4-6) Last Admin: 08/08/25 14:20 Dose: 10 mg Documented By: JACK Potassium Chloride (Potassium Chloride Er 20 Meq Tab.Er.Prt) 20 meq PO DAILY [facility] Last Admin: 08/09/25 08:36 Dose: 20 meq Documented By: WILL Roflumilast (Roflumilast 500 Mcg Tablet) 500 mcg PO DAILY [facility] Last Admin: 08/09/25 08:36 Dose: 500 mcg Documented By: WILL Sodium Chloride (0.9 % Sodium Chloride Flush 3 Ml Syringe) 3 ml IVFLUSH QSHIFT [facility] Last Admin: 08/09/25 08:35 Dose: 3 ml Documented By: WILL Labs 08/08/25 05:28 08/08/25 05:28 Microbiology Microbiology Results: Microbiology 08/07/25 21:35 Blood Culture - Preliminary Blood - Venous No growth after 24 hours. 08/07/25 21:32 Blood Culture - Preliminary Blood - Venous No growth after 24 hours. Assessment and Plan (1) Acute and chronic respiratory failure with hypoxia: Status: Acute (2) COPD (chronic obstructive pulmonary disease): Status: Acute (3) Asthma exacerbation: Status: Acute Plan 70-year-old female with a history of asthma/COPD on supplemental O2, anxiety, and chronic pain, presented with shortness of breath. Found to have acute and chronic hypoxic respiratory failure due to COPD exacerbation with pneumonia. Acute and chronic hypoxic respiratory failure due to acute asthma/COPD exacerbation with pneumonia Some improvement, but increased work of breathing persists Continue ceftriaxone and azithromycin for pneumonia Continue scheduled and PRN nebulizations Supplemental oxygen as needed Continue IV steroids; transition to PO prednisone tomorrow if improving Hypokalemia Repleted; recheck potassium Continue potassium supplementation Hypertension Continue amlodipine and HCTZ Mood disorder Continue hydroxyzine and escitalopram DVT prophylaxis Enoxaparin Code status:?Full code Need for inpatient care:?Ongoing monitoring for acute respiratory failure with hypoxia due to COPD/asthma exacerbation and increased work of breathing Quality Stroke Does the patient have a stroke diagnosis?: No VTE Prior VTE?: No VTE Risk Level:: Medical - moderate - high VTE Device Contraindication: Treatment Not Indicated VTE Drug Contraindication: N/A - Med Ordered
[2025-08-09 13:52] LABS: Hematocrit 41.5 % (37.0-47.0); Hemoglobin 14.0 g/dl (12.0-16.0); Mean Corpuscular HGB Conc 33.7 g/dl (31.0-35.0); Mean Corpuscular Hemoglobin 30.2 pg (27.0-33.0); Mean Corpuscular Volume 89.4 fL (80.0-98.0); NRBC Abs Auto 0.000 X10*3/uL (0.0-0.012); NRBC Pct Auto 0.0 /100WBC (0.0-0.2); Platelet Count 227 X10*3/uL (160-400); Red Blood Count 4.64 X10*6/uL (4.20-5.50); White Blood Count 8.4 X10*3/uL (4.8-10.8)
[2025-08-09 14:11] LABS: Blood Urea Nitrogen 21 mg/dL (9-16); Calcium 9.1 mg/dL (8.4-10.2); Creatinine Clr Calc Pharmacy 66.5; Estimated Glomerular Filt Rate > 60
[2025-08-09 14:23] LABS: Anion Gap 12 (12-20); Carbon Dioxide 39 mmol/L (22-29); Chloride 93 mmol/L (96-108); Potassium 4.0 mmol/L (3.3-5.1); Sodium 140 mmol/L (135-145)
[2025-08-09] MEDS: oxyCODONE HCl Immed Release 5 MG TABLET 10 MG PO (17:04)
[2025-08-10] VITALS (12 sets, daily range): BP systolic 153–175; BP diastolic 72–95; PULSE 86–120; RESP 17–24; TEMP 36.1–36.6; O2SAT 88–94
[2025-08-10] MEDS: Albuterol/Iprat 2.5/0.5MG 3 ML AMPUL.NEB INHALE ×2 (00:07→04:10)
[2025-08-10] MEDS: 0.9 % Sodium Chloride Flush 3 ML SYRINGE IVFLUSH ×2 (00:43→08:32)
[2025-08-10 04:58] LABS: Venous Blood Gas Refer to POC result
[2025-08-10 05:00] LABS: VBG HCO3 42 mmol/L (22-26); VBG O2 % Saturation 100.0 %
[2025-08-10] MEDS: levalbuterol HCL 1.25 MG, Ipratropium Bromide 0.5 MG INHALE ×4 (07:51→20:26)
[2025-08-10] MEDS: Morphine Sulfate ER 15 MG TABLET.ER PO ×2 (08:32→19:32)
[2025-08-10] MEDS: Potassium Chloride ER 20 MEQ TAB.ER.PRT PO (08:32)
[2025-08-10] MEDS: oxyCODONE HCl Immed Release 5 MG TABLET 10 MG PO ×2 (11:56→21:49)
--- NOTE | 2025-08-10 16:26 | P.PNIM_ITS ---
Subjective Subjective Date of Service: 08/10/25 Interval History: Extensive discussion with the patient and family members today. They wish to have a discussion regarding goals of care. The patient clarified after extensive discussion that she wishes to remain full code We discussed her diagnosis of end-stage COPD We discussed the stepwise decline in regards to respiratory function We discussed the possible gradual improvement in respiratory function with medication management during this admission Review of Systems Review of Systems: Yes all other systems are reviewed and are negative Physical Exam 2 Exam: Exam: General: A&O x3, oriented to time place person and situation, comfortable, no pain, frail Cardiac: S1, S2 auscultated with no S3/4, no MRG. Well perfused. Respiratory: Significantly reduced breath sounds in all lung zones, with end expiratory wheezing and inspiratory wheezing in the upper airways bilaterally; congested sounds, no peripheral or central cyanosis. Accessory muscles of respiration in use GI/ : No abdominal pain on palpation, no masses or distentions. MSK: Normal ambulation without pain at bony prominences or musculature Neurological: Normal neurological examination on overview, without obvious CN II-XII abnormalities. Vital Signs: Vital Signs: Last Vital Signs Temp 97.6 F 08/10/25 11:42 Pulse 94 08/10/25 11:42 Resp 20 08/10/25 11:42 BP 170/90 H 08/10/25 11:42 Pulse Ox 94 08/10/25 11:42 O2 Del Method Oxymask 08/10/25 11:42 O2 Flow Rate 5 08/10/25 11:42 BMI result Body Mass Index 26.9 Objective Data Active Medications Acetaminophen (Acetaminophen 325 Mg Tablet) 650 mg PO Q6H PRN PRN Reason: Pain, Mild 1-3,fever,headache Albuterol/Ipratropium (Albuterol/Iprat 2.5/0.5mg 3 Ml Ampul.Neb) 3 ml INHALE Q4H PRN PRN Reason: Shortness of Breath/Wheezing Last Admin: 08/10/25 04:10 Dose: 3 ml Documented By: ZEESHAN Amlodipine Besylate (Amlodipine Besylate 10 Mg Tablet) 10 mg PO DAILY [facility]; Protocol Last Admin: 08/10/25 08:32 Dose: 10 mg Documented By: WILL Azithromycin (Azithromycin 500 Mg Tablet) 500 mg PO BEDTIME [facility] Last Admin: 08/09/25 21:16 Dose: 500 mg Documented By: VALARIE Benzocaine (Throat Lozenge, Medicated Lozenge) 1 lozenge MUCOUS MEM Q2H PRN PRN Reason: Sore Throat Benzonatate (Benzonatate 100 Mg Capsule) 100 mg PO TID PRN PRN Reason: Cough Last Admin: 08/09/25 21:25 Dose: 100 mg Documented By: VALARIE Calcium Carbonate (Calcium Carbonate 750 Mg Tab.Chew) 750 mg PO Q4H PRN PRN Reason: Heartburn Levalbuterol HCl 1.25 mg/ (Ipratropium [place] 0.5 mg) 0 mg INHALE Q4H [facility] Last Admin: 08/10/25 11:31 Dose: 1 dose Documented By: SCJOSE Docusate Sodium (Docusate Sodium 100 Mg Capsule) 100 mg PO DAILY [facility] Last Admin: 08/10/25 08:31 Dose: 100 mg Documented By: WILL Enoxaparin Sodium (Enoxaparin Sodium 40 Mg/0.4 Ml Syringe) 40 mg SUBCUT Q24H [facility] Last Admin: 08/10/25 08:31 Dose: 40 mg Documented By: WILL Escitalopram Oxalate (Escitalopram Oxalate 10 Mg Tablet) 10 mg PO BEDTIME [facility] Last Admin: 08/09/25 21:15 Dose: 10 mg Documented By: VALARIE Fluticasone Propionate (Fluticasone Propionate Nasal 16 Gm [place]) 2 spray NOSTRIL-B BEDTIME [facility] Last Admin: 08/09/25 21:16 Dose: 2 spray Documented By: VALARIE Hydrochlorothiazide (Hydrochlorothiazide 25 Mg Tablet) 25 mg PO DAILY [facility]; Protocol Last Admin: 08/10/25 08:31 Dose: 25 mg Documented By: WILL Hydromorphone HCl (Hydromorphone Hcl 0.5 Mg/0.5 Ml Syringe) 0.5 mg IVPUSH Q4H PRN; Protocol PRN Reason: Breakthrough Pain Last Admin: 08/10/25 00:35 Dose: 0.5 mg Documented By: VALARIE Hydroxyzine HCl (Hydroxyzine Hcl 25 Mg Tablet) 25 mg PO TID PRN PRN Reason: Anxiety Last Admin: 08/10/25 08:32 Dose: 25 mg Documented By: WILL Ceftriaxone Sodium 1 gm/ (Sodium Chloride) 50 mls @ 100 mls/hr IV 2200 [facility] Last Infusion: 08/09/25 21:53 Dose: Infused Documented By: VALARIE Magnesium Hydroxide (Milk Of Magnesia 30 Ml Oral.Susp) 30 ml PO DAILY PRN PRN Reason: Constipation Melatonin (Melatonin 3 Mg Tablet) 6 mg PO BEDTIME PRN PRN Reason: Insomnia Methylprednisolone Sodium Succinate (Methylprednisolone Sod Succ 40 Mg/Ml Vial) 60 mg IVPUSH Q6H [facility] Last Admin: 08/10/25 11:56 Dose: 60 mg Documented By: WILL Morphine Sulfate (Morphine Sulfate Er 15 Mg Tablet.Er) 15 mg PO BID [facility] Last Admin: 08/10/25 08:32 Dose: 15 mg Documented By: WILL Multivitamins/Vitamin C (Multivitamin Tablet) 1 tab PO DAILY [facility] Last Admin: 08/10/25 08:32 Dose: 1 tab Documented By: WILL Naloxone HCl (Naloxone Hcl 0.4 Mg/Ml Vial) 0.4 mg SUBCUT Q3M PRN PRN Reason: overdose Non-Formulary Medication (Cnhfxffnnt-Uodbfybe-Ldpfgfmsqk [Breztri Aerosphere]) 2 inhalation INHALE RBID [facility] Last Admin: 08/10/25 12:37 Dose: Not Given Documented By: WILL Non-Admin Reason: per RT, given IV solumedrol Oxycodone HCl (Oxycodone Hcl Immed Release 5 Mg Tablet) 10 mg PO QID PRN PRN Reason: Pain, Moderate(Pain Scale 4-6) Last Admin: 08/10/25 11:56 Dose: 10 mg Documented By: WILL Potassium Chloride (Potassium Chloride Er 20 Meq Tab.Er.Prt) 20 meq PO DAILY [facility] Last Admin: 08/10/25 08:32 Dose: 20 meq Documented By: WILL Roflumilast (Roflumilast 500 Mcg Tablet) 500 mcg PO DAILY [facility] Last Admin: 08/10/25 08:32 Dose: 500 mcg Documented By: WILL Sodium Chloride (0.9 % Sodium Chloride Flush 3 Ml Syringe) 3 ml IVFLUSH QSHIFT [facility] Last Admin: 08/10/25 15:07 Dose: Not Given Documented By: WILL Non-Admin Reason: Previously Administered Labs 08/09/25 13:42 08/09/25 13:42 Labs: Laboratory Results - last 24 hr 08/10/25 04:55 VBG pH 7.43 VBG pCO2 62 VBG pO2 172 VBG HCO3 42 H VBG O2 Saturation 100.0 VBG Base Excess 14.6 Microbiology Microbiology Results: Microbiology 08/07/25 21:35 Blood Culture - Preliminary Blood - Venous No growth after 48 hours. 08/07/25 21:32 Blood Culture - Preliminary Blood - Venous No growth after 48 hours. Assessment and Plan (1) COVID-19: Status: Acute (2) Influenza A: Status: Acute (3) COPD (chronic obstructive pulmonary disease): Status: Acute (4) Acute exacerbation of chronic obstructive pulmonary disease (COPD): Status: Acute (5) Acute and chronic respiratory failure with hypoxia: Status: Acute (6) Nocturnal hypoxemia: Status: Acute Plan 70-year-old female with a history of asthma/COPD on supplemental O2, anxiety, and chronic pain, presented with shortness of breath, admitted with acute and chronic hypoxic respiratory failure due to COPD exacerbation with pneumonia. Acute and chronic hypoxic respiratory failure Infective COPD exacerbation with pneumonia Cor pulmonale on home O2 Some improvement, but increased work of breathing persists Continue ceftriaxone and azithromycin for pneumonia Continue scheduled and PRN nebulizations Supplemental oxygen as needed Continue IV methylprednisolone Hypokalemia Repleted; recheck potassium Continue potassium supplementation Hypertension Continue amlodipine and HCTZ Mood disorder Continue hydroxyzine and escitalopram [facility] [employer] - VTE: Enoxaparin - CODE STATUS: Full code - GOC discussion held 08/10 - DIET: Regular - DISPOSITION: Requires 2 midnights Total time managing care of this patient today: 45 minutes. Quality Stroke Does the patient have a stroke diagnosis?: No VTE Prior VTE?: No VTE Risk Level:: Medical - moderate - high VTE Device Contraindication: Treatment Not Indicated VTE Drug Contraindication: N/A - Med Ordered
[2025-08-11] VITALS (11 sets, daily range): BP systolic 150–173; BP diastolic 70–86; PULSE 99–118; RESP 16–20; TEMP 36.3–36.7; O2SAT 92–97
[2025-08-11] MEDS: levalbuterol HCL 1.25 MG, Ipratropium Bromide 0.5 MG INHALE ×5 (03:23→18:47)
[2025-08-11] MEDS: Potassium Chloride ER 20 MEQ TAB.ER.PRT PO (07:43)
[2025-08-11] MEDS: Morphine Sulfate ER 15 MG TABLET.ER PO ×2 (07:44→19:41)
[2025-08-11] MEDS: 0.9 % Sodium Chloride Flush 3 ML SYRINGE IVFLUSH ×2 (07:44→18:03)
[2025-08-11] MEDS: oxyCODONE HCl Immed Release 5 MG TABLET 10 MG PO ×2 (07:46→18:03)
[2025-08-11 09:47] LABS: NT Pro B Type Natriuretic Pept 287.1 pg/mL (<300)
[2025-08-11 09:56] LABS: Anion Gap 15 (12-20); Blood Urea Nitrogen 20 mg/dL (9-16); Calcium 9.0 mg/dL (8.4-10.2); Carbon Dioxide 40 mmol/L (22-29); Chloride 90 mmol/L (96-108); Creatinine Clr Calc Pharmacy 85.9; Estimated Glomerular Filt Rate > 60; Potassium 4.4 mmol/L (3.3-5.1); Sodium 141 mmol/L (135-145)
[2025-08-11 10:01] LABS: Procalcitonin 0.04 ng/mL
--- NOTE | 2025-08-11 10:38 | MHC.CM.PN ---
Per [facility], Patient is not yet medically cleared for dc (high CO2).
--- NOTE | 2025-08-11 14:20 | HO.WOUND ---
Wound Consult: Initial 70 yr old female admitted to [facility] on 08/08/25- See progress notes and H&P for detailed history. Wound consult placed for buttocks. Patient agreeable to assessment and photo documentation. Buttocks Etiology: MASD/blanchable redness Wound Bed: intact blanchable redness Drainage / Odor: none Gricel wound: ? No Induration, Fluctuance or Warmth noted Pain: mild pain to left buttock Goals of Treatment: ? barrier cream for moisture barrier Recommendations: 1. Turn and Reposition every 2 hours and as needed for patient comfort. Use pillows or wedges to support off loading positions. 2. Off Load all bony prominences with use of pillows and heel boots if needed. Apply Preventative foams where needed. 3. Monitor for incontinence and moisture control, use barrier creams when needed for prevention and treatment. 4. Provide adequate and supplemental nutrition. 5. Order or Continue low air loss mattress. 6. When applicable maintain blood glucose levels per Providers order. Buttocks: Off Load Pressure with Q2 hr turns and use of pillows - Cleanse with PH balance spray or wipes, pat dry. ?Apply thin layer of barrier cream to affected area. Apply twice daily and Reapply thin layer PRN after each episode of incontinence. Re-consult wound care Nurse for wound deterioration or wound changes.
--- NOTE | 2025-08-11 17:31 | P.PNIM_ITS ---
Subjective Subjective Date of Service: 08/11/25 Interval History: GRADUAL IMPROVEMENT TODAY COMPARED TO YESTERDAY THE PATIENT FEELS BETTER OVERALL Review of Systems Review of Systems: Yes all other systems are reviewed and are negative Physical Exam 2 Exam: Exam: General: A&O x3, oriented to time place person and situation, comfortable, no pain, frail Cardiac: S1, S2 auscultated with no S3/4, no MRG. Well perfused. Respiratory: Significantly reduced breath sounds in all lung zones, with end expiratory wheezing and inspiratory wheezing in the upper airways bilaterally; congested sounds, no peripheral or central cyanosis. Accessory muscles of respiration in use GI/ : No abdominal pain on palpation, no masses or distentions. MSK: Normal ambulation without pain at bony prominences or musculature Neurological: Normal neurological examination on overview, without obvious CN II-XII abnormalities. Vital Signs: Vital Signs: Last Vital Signs Temp 97.3 F 08/11/25 15:26 Pulse 109 H 08/11/25 15:26 Resp 20 08/11/25 15:26 BP 155/79 H 08/11/25 15:26 Pulse Ox 97 08/11/25 15:26 O2 Del Method Nasal Cannula, Ox ymask 08/11/25 15:26 O2 Flow Rate 6 08/11/25 15:26 BMI result Body Mass Index 26.9 Objective Data Active Medications Acetaminophen (Acetaminophen 325 Mg Tablet) 650 mg PO Q6H PRN PRN Reason: Pain, Mild 1-3,fever,headache Albuterol/Ipratropium (Albuterol/Iprat 2.5/0.5mg 3 Ml Ampul.Neb) 3 ml INHALE Q4H PRN PRN Reason: Shortness of Breath/Wheezing Last Admin: 08/10/25 04:10 Dose: 3 ml Documented By: ZEESHAN Amlodipine Besylate (Amlodipine Besylate 10 Mg Tablet) 10 mg PO DAILY [facility]; Protocol Last Admin: 08/11/25 07:43 Dose: 10 mg Documented By: BRANDIE Azithromycin (Azithromycin 500 Mg Tablet) 500 mg PO BEDTIME [facility] Last Admin: 08/10/25 19:31 Dose: 500 mg Documented By: DANIEL Benzocaine (Throat Lozenge, Medicated Lozenge) 1 lozenge MUCOUS MEM Q2H PRN PRN Reason: Sore Throat Benzonatate (Benzonatate 100 Mg Capsule) 100 mg PO TID PRN PRN Reason: Cough Last Admin: 08/11/25 07:59 Dose: 100 mg Documented By: BRANDIE Calcium Carbonate (Calcium Carbonate 750 Mg Tab.Chew) 750 mg PO Q4H PRN PRN Reason: Heartburn Levalbuterol HCl 1.25 mg/ (Ipratropium [place] 0.5 mg) 0 mg INHALE Q4H [facility] Last Admin: 08/11/25 15:03 Dose: 1 dose Documented By: ROMA Docusate Sodium (Docusate Sodium 100 Mg Capsule) 100 mg PO DAILY [facility] Last Admin: 08/11/25 07:44 Dose: 100 mg Documented By: BRANDIE Enoxaparin Sodium (Enoxaparin Sodium 40 Mg/0.4 Ml Syringe) 40 mg SUBCUT Q24H [facility] Last Admin: 08/11/25 07:43 Dose: 40 mg Documented By: BRANDIE Escitalopram Oxalate (Escitalopram Oxalate 10 Mg Tablet) 10 mg PO BEDTIME [facility] Last Admin: 08/10/25 19:32 Dose: 10 mg Documented By: DANIEL Fluticasone Propionate (Fluticasone Propionate Nasal [address]) 2 spray NOSTRIL-B BEDTIME [facility] Last Admin: 08/10/25 19:33 Dose: 2 spray Documented By: DANIEL Hydrochlorothiazide (Hydrochlorothiazide 25 Mg Tablet) 25 mg PO DAILY [facility]; Protocol Last Admin: 08/11/25 07:43 Dose: 25 mg Documented By: BRANDIE Hydromorphone HCl (Hydromorphone Hcl 0.5 Mg/0.5 Ml Syringe) 0.5 mg IVPUSH Q4H PRN; Protocol PRN Reason: Breakthrough Pain Last Admin: 08/11/25 12:13 Dose: 0.5 mg Documented By: BRANDIE Hydroxyzine HCl (Hydroxyzine Hcl 25 Mg Tablet) 25 mg PO TID PRN PRN Reason: Anxiety Last Admin: 08/10/25 22:02 Dose: 25 mg Documented By: DANIEL Ceftriaxone Sodium 1 gm/ (Sodium Chloride) 50 mls @ 100 mls/hr IV 2200 ABDIAZIZ Last Infusion: 08/10/25 22:41 Dose: Infused Documented By: DANIEL Magnesium Hydroxide (Milk Of Magnesia 30 Ml Oral.Susp) 30 ml PO DAILY PRN PRN Reason: Constipation Melatonin (Melatonin 3 Mg Tablet) 6 mg PO BEDTIME PRN PRN Reason: Insomnia Methylprednisolone Sodium Succinate (Methylprednisolone Sod Succ 40 Mg/Ml Vial) 60 mg IVPUSH Q6H [facility] Last Admin: 08/11/25 12:06 Dose: 60 mg Documented By: BRANDIE Morphine Sulfate (Morphine Sulfate Er 15 Mg Tablet.Er) 15 mg PO BID [facility] Last Admin: 08/11/25 07:44 Dose: 15 mg Documented By: BRANDIE Multivitamins/Vitamin C (Multivitamin Tablet) 1 tab PO DAILY [facility] Last Admin: 08/11/25 07:44 Dose: 1 tab Documented By: BRANDIE Naloxone HCl (Naloxone Hcl 0.4 Mg/Ml Vial) 0.4 mg SUBCUT Q3M PRN PRN Reason: overdose Non-Formulary Medication (Eezyposzdb-Uobabvsc-Hqyqujeffx [Breztri Aerosphere]) 2 inhalation INHALE RBID [facility] Last Admin: 08/11/25 08:13 Dose: 2 inhalation Documented By: ROMA Oxycodone HCl (Oxycodone Hcl Immed Release 5 Mg Tablet) 10 mg PO QID PRN PRN Reason: Pain, Moderate(Pain Scale 4-6) Last Admin: 08/11/25 07:46 Dose: 10 mg Documented By: BRANDIE Potassium Chloride (Potassium Chloride Er 20 Meq Tab.Er.Prt) 20 meq PO DAILY [facility] Last Admin: 08/11/25 07:43 Dose: 20 meq Documented By: BRANDIE Roflumilast (Roflumilast 500 Mcg Tablet) 500 mcg PO DAILY [facility] Last Admin: 08/11/25 07:43 Dose: 500 mcg Documented By: BRANDIE Sodium Chloride (0.9 % Sodium Chloride Flush 3 Ml Syringe) 3 ml IVFLUSH QSHIFT [facility] Last Admin: 08/11/25 07:44 Dose: 3 ml Documented By: BRANDIE Labs 08/09/25 13:42 08/11/25 08:57 Labs: Laboratory Results - last 24 hr 08/11/25 08/11/25 08:56 08:57 Anion Gap 15 Estim Creat Clear Calc 85.9 Estimated GFR > 60 Random Glucose 275 H Calcium 9.0 NT-Pro-B Natriuret Pep 287.1 Procalcitonin 0.04 Assessment and Plan (1) Asthma exacerbation: Status: Acute (2) COPD (chronic obstructive pulmonary disease): Status: Acute (3) Bronchopneumonia: Status: Acute (4) Pulmonary nodule: Status: Acute (5) Acute exacerbation of chronic obstructive pulmonary disease (COPD): Status: Acute Plan 70-year-old female with a history of asthma/COPD on supplemental O2, anxiety, and chronic pain, presented with shortness of breath, admitted with acute and chronic hypoxic respiratory failure due to COPD exacerbation with pneumonia. Acute and chronic hypoxic respiratory failure Infective COPD exacerbation with pneumonia Cor pulmonale on home O2 Some improvement, but increased work of breathing persists Continue ceftriaxone and azithromycin for pneumonia Continue scheduled and PRN nebulizations Supplemental oxygen as needed Continue IV methylprednisolone Hypokalemia Repleted; recheck potassium Continue potassium supplementation Hypertension Continue amlodipine and HCTZ Mood disorder Continue hydroxyzine and escitalopram QUALITY [employer] - VTE: Enoxaparin - CODE STATUS: Full code - GOC discussion held 08/10 - DIET: Regular - DISPOSITION: Requires 2 midnights Total time managing care of this patient today: 35 minutes. Quality Stroke Does the patient have a stroke diagnosis?: No VTE Prior VTE?: No VTE Risk Level:: Medical - moderate - high VTE Device Contraindication: Treatment Not Indicated VTE Drug Contraindication: N/A - Med Ordered
--- NOTE | 2025-08-11 18:29 | P.CDIM_ITS ---
PROVIDER RESPONSE TEXT: To clarify, the appropriate diagnosis supported by the clinical indicators: Chronic QUERY TEXT: PHYSICIAN'S DOCUMENTATION REQUEST Date of Query: 08/11/2025 01:00 PM EST Patient Name: Bernie Oh Admit Date: 08/08/2025 Dear Sundar Lynne MD, A review of the medical record indicates additional documentation may be needed. Please review below and update the documentation accordingly. Clinical Indicators: Progress note 08/11/25 - Acute and chronic hypoxic respiratory failure. Infective COPD exacerbation with pneumonia. Cor Pulmonale on home O2 Some improvement, continue Ceftriaxone and Azithromycin for pneumonia. Supplemental oxygen as needed. Clarify which of the following accurately represents the acuity of the Cor pulmonale: Possible options might include: Acute Chronic Other specifics Other (explain) Clinically unable to determine (explain) Thank you, Kylah Gonzalez, CCS, CDIS Use of terms such as suspected, likely, concern for, or probable (associated with a specific diagnosis that is being evaluated, monitored, or treated as if it exists) are acceptable and can be coded in the inpatient setting, when documented at the time of discharge. Please use your independent medical judgment in providing your response. THIS QUERY IS PART OF THE PERMANENT MEDICAL RECORD
[2025-08-12] VITALS (13 sets, daily range): BP systolic 140–167; BP diastolic 77–81; PULSE 92–110; RESP 16–22; TEMP 36.3–37.1; O2SAT 90–95
[2025-08-12] MEDS: levalbuterol HCL 1.25 MG, Ipratropium Bromide 0.5 MG INHALE ×7 (00:43→23:58)
[2025-08-12] MEDS: oxyCODONE HCl Immed Release 5 MG TABLET 10 MG PO (04:53)
[2025-08-12] MEDS: Potassium Chloride ER 20 MEQ TAB.ER.PRT PO (08:48)
[2025-08-12] MEDS: Morphine Sulfate ER 15 MG TABLET.ER PO ×2 (08:48→19:41)
[2025-08-12] MEDS: 0.9 % Sodium Chloride Flush 3 ML SYRINGE IVFLUSH ×2 (08:49→17:44)
--- NOTE | 2025-08-12 12:07 | P.PNIM_ITS ---
Subjective Subjective Date of Service: 08/12/25 Interval History: No new issues or complaints. Mild improvement in her respiratory function Remains on OxyMask Review of Systems Review of Systems: Yes all other systems are reviewed and are negative Physical Exam 2 Exam: Exam: General: A&O x3, oriented to time place person and situation, comfortable, no pain, frail Cardiac: S1, S2 auscultated with no S3/4, no MRG. Well perfused. Respiratory: Significantly reduced breath sounds in all lung zones, with end expiratory wheezing and inspiratory wheezing in the upper airways bilaterally; congested sounds, no peripheral or central cyanosis. No Accessory muscles of respiration in use GI/ : No abdominal pain on palpation, no masses or distentions. MSK: Normal ambulation without pain at bony prominences or musculature Neurological: Normal neurological examination on overview, without obvious CN II-XII abnormalities. Vital Signs: Vital Signs: Last Vital Signs Temp 98.2 F 08/12/25 08:00 Pulse 100 08/12/25 11:15 Resp 18 08/12/25 11:15 BP 150/77 H 08/12/25 08:49 Pulse Ox 95 08/12/25 08:00 O2 Del Method Nasal Cannula, Ox ymask 08/12/25 08:00 O2 Flow Rate 6 08/12/25 08:00 BMI result Body Mass Index 26.9 Objective Data Active Medications Acetaminophen (Acetaminophen 325 Mg Tablet) 650 mg PO Q6H PRN PRN Reason: Pain, Mild 1-3,fever,headache Albuterol/Ipratropium (Albuterol/Iprat 2.5/0.5mg 3 Ml Ampul.Neb) 3 ml INHALE Q4H PRN PRN Reason: Shortness of Breath/Wheezing Last Admin: 08/10/25 04:10 Dose: 3 ml Documented By: ZEESHAN Amlodipine Besylate (Amlodipine Besylate 10 Mg Tablet) 10 mg PO DAILY [facility]; Protocol Last Admin: 08/12/25 08:49 Dose: 10 mg Documented By: MARGARETTE Azithromycin (Azithromycin 500 Mg Tablet) 500 mg PO BEDTIME [facility] Last Admin: 08/11/25 19:41 Dose: 500 mg Documented By: DANIEL Benzocaine (Throat Lozenge, Medicated Lozenge) 1 lozenge MUCOUS MEM Q2H PRN PRN Reason: Sore Throat Benzonatate (Benzonatate 100 Mg Capsule) 100 mg PO TID PRN PRN Reason: Cough Last Admin: 08/11/25 07:59 Dose: 100 mg Documented By: BRANDIE Calcium Carbonate (Calcium Carbonate 750 Mg Tab.Chew) 750 mg PO Q4H PRN PRN Reason: Heartburn Levalbuterol HCl 1.25 mg/ (Ipratropium [place] 0.5 mg) 0 mg INHALE Q4H REPLACED BY [facility] Last Admin: 08/12/25 11:14 Dose: 1 dose Documented By: ROMA Docusate Sodium (Docusate Sodium 100 Mg Capsule) 100 mg PO DAILY [facility]PL[facility] BY [facility] Last Admin: 08/12/25 08:49 Dose: 100 mg Documented By: MARGARETTE Enoxaparin Sodium (Enoxaparin Sodium 40 Mg/0.4 Ml Syringe) 40 mg SUBCUT Q24H REPLACED BY [facility] Last Admin: 08/12/25 08:49 Dose: 40 mg Documented By: MARGARETTE Escitalopram Oxalate (Escitalopram Oxalate 10 Mg Tablet) 10 mg PO BEDTIME REPLACED BY [facility] Last Admin: 08/11/25 19:41 Dose: 10 mg Documented By: DANIEL Fluticasone Propionate (Fluticasone Propionate Nasal [address] [place]) 2 spray NOSTRIL-B BEDTIME REPLACED BY [facility] Last Admin: 08/11/25 19:41 Dose: 2 spray Documented By: DANIEL Hydrochlorothiazide (Hydrochlorothiazide 25 Mg Tablet) 25 mg PO DAILY [facility]; Protocol Last Admin: 08/12/25 08:49 Dose: 25 mg Documented By: MARGARETTE Hydromorphone HCl (Hydromorphone Hcl 0.5 Mg/0.5 Ml Syringe) 0.5 mg IVPUSH Q4H PRN; Protocol PRN Reason: Breakthrough Pain Last Admin: 08/11/25 12:13 Dose: 0.5 mg Documented By: BRANDIE Hydroxyzine HCl (Hydroxyzine Hcl 25 Mg Tablet) 25 mg PO TID PRN PRN Reason: Anxiety Last Admin: 08/12/25 11:29 Dose: 25 mg Documented By: MARGARETTE Ceftriaxone Sodium 1 gm/ (Sodium Chloride) 50 mls @ 100 mls/hr IV 2200 ABDIAZIZ Last Infusion: 08/11/25 23:29 Dose: Infused Documented By: DANIEL Magnesium Hydroxide (Milk Of Magnesia 30 Ml Oral.Susp) 30 ml PO DAILY PRN PRN Reason: Constipation Melatonin (Melatonin 3 Mg Tablet) 6 mg PO BEDTIME PRN PRN Reason: Insomnia Methylprednisolone Sodium Succinate (Methylprednisolone Sod Succ 40 Mg/Ml Vial) 60 mg IVPUSH Q6H REPLACED BY [facility] Last Admin: 08/12/25 11:29 Dose: 60 mg Documented By: MARGARETTE Morphine Sulfate (Morphine Sulfate Er 15 Mg Tablet.Er) 15 mg PO BID REPLACED BY [facility] Last Admin: 08/12/25 08:48 Dose: 15 mg Documented By: MARGARETTE Multivitamins/Vitamin C (Multivitamin Tablet) 1 tab PO DAILY [facility] Last Admin: 08/12/25 08:49 Dose: 1 tab Documented By: MARGARETTE Naloxone HCl (Naloxone Hcl 0.4 Mg/Ml Vial) 0.4 mg SUBCUT Q3M PRN PRN Reason: overdose Non-Formulary Medication (Dihkbocavh-Pplyruaz-Bycxhtrwiq [Breztri Aerosphere]) 2 inhalation INHALE RBID REPLACED BY [facility] Last Admin: 08/12/25 07:24 Dose: 2 inhalation Documented By: FESHAUNA Oxycodone HCl (Oxycodone Hcl Immed Release 5 Mg Tablet) 10 mg PO QID PRN PRN Reason: Pain, Moderate(Pain Scale 4-6) Last Admin: 08/12/25 04:53 Dose: 10 mg Documented By: DANIEL Potassium Chloride (Potassium Chloride Er 20 Meq Tab.Er.Prt) 20 meq PO DAILY [facility]PL[facility] Last Admin: 08/12/25 08:48 Dose: 20 meq Documented By: MARGARETTE Roflumilast (Roflumilast 500 Mcg Tablet) 500 mcg PO DAILY [facility]PLAC[facility] Last Admin: 08/12/25 08:48 Dose: 500 mcg Documented By: MARGARETTE Sodium Chloride (0.9 % Sodium Chloride Flush 3 Ml Syringe) 3 ml IVFLUSH QSHIFT REPLACED BY [facility] Last Admin: 08/12/25 08:49 Dose: 3 ml Documented By: MARGARETTE Labs 08/09/25 13:42 08/11/25 08:57 Assessment and Plan (1) COPD (chronic obstructive pulmonary disease): Status: Acute (2) Asthma exacerbation: Status: Acute (3) Bronchopneumonia: Status: Acute (4) Pulmonary nodule: Status: Acute (5) Hypoxia: Status: Acute (6) Acute exacerbation of chronic obstructive pulmonary disease (COPD): Status: Acute (7) Acute and chronic respiratory failure with hypoxia: Status: Acute Plan 70-year-old female with a history of asthma/COPD on supplemental O2, anxiety, and chronic pain, presented with shortness of breath, admitted with acute and chronic hypoxic respiratory failure due to COPD exacerbation with pneumonia. Acute and chronic hypoxic respiratory failure Infective COPD exacerbation with pneumonia Cor pulmonale on home O2 Some improvement, but increased work of breathing persists Continue ceftriaxone and azithromycin for pneumonia Continue scheduled and PRN nebulizations Supplemental oxygen as needed Continue IV methylprednisolone Hypokalemia Repleted; recheck potassium Continue potassium supplementation Hypertension Continue amlodipine and HCTZ Mood disorder Continue hydroxyzine and escitalopram [facility] [employer] - VTE: Enoxaparin - CODE STATUS: Full code - GOC discussion held 08/10 - DIET: Regular - DISPOSITION: Requires 2 midnights Total time managing care of this patient today: 35 minutes. Quality Stroke Does the patient have a stroke diagnosis?: No VTE Prior VTE?: No VTE Risk Level:: Medical - moderate - high VTE Device Contraindication: Treatment Not Indicated VTE Drug Contraindication: N/A - Med Ordered
[2025-08-13] VITALS: BP 146/78; PULSE 102; RESP 19; TEMP 36.1; O2SAT 95
[2025-08-13] MEDS: 0.9 % Sodium Chloride Flush 3 ML SYRINGE IVFLUSH ×2 (00:10→08:57)
[2025-08-13 03:07] VITALS: BP 160/90; PULSE 100; RESP 17; TEMP 37; O2SAT 92
[2025-08-13] MEDS: levalbuterol HCL 1.25 MG, Ipratropium Bromide 0.5 MG INHALE ×2 (04:21→08:11)
[2025-08-13 04:22] VITALS: PULSE 100; RESP 18; O2SAT 94
[2025-08-13] MEDS: oxyCODONE HCl Immed Release 5 MG TABLET 10 MG PO (05:35)
[2025-08-13 07:46] VITALS: BP 158/75; PULSE 112; RESP 20; TEMP 36.4; O2SAT 91
[2025-08-13 08:17] VITALS: PULSE 115; RESP 19; O2SAT 96
[2025-08-13 08:56] VITALS: BP 158/75
--- NOTE | 2025-08-13 10:48 | P.DS_ITS ---
DS: Providers Provider Date of admission: 08/08/25 00:41 Date of discharge: 08/13/25 Primary care physician: Lonny Bentley MD Consults: 08/11/25 09:26 Consult to Wound Care Routine Consulting Provider: [facility] Wound Care Management Reason for consultation: gladys. buttocks ? stage I PI DS: Diagnosis Discharge Diagnosis (1) COPD (chronic obstructive pulmonary disease): Status: Acute (2) Asthma exacerbation: Status: Acute (3) Bronchopneumonia: Status: Acute (4) Pulmonary nodule: Status: Acute (5) Hypoxia: Status: Acute (6) Acute exacerbation of chronic obstructive pulmonary disease (COPD): Status: Acute (7) Acute and chronic respiratory failure with hypoxia: Status: Acute DS: Summary Hospital Course Hospital Course: 70-year-old female with a history of asthma/COPD on supplemental O2, anxiety, and chronic pain, presented with shortness of breath, admitted with acute and chronic hypoxic respiratory failure due to COPD exacerbation with pneumonia. Date of Service: 08/08/25 Chief Complaint: Shortness of breath 70-year-old female with a past medical history of asthma/COPD, anxiety, chronic pain; presented to the hospital today with a chief complaint of shortness of breath. Patient reported the past couple days she has been having shortness of breath which has been gradually worsening. Reports having cough. Denies any fevers. Denies any chest pain or palpitations. Denies any GI symptoms. Review of all other systems is negative except mentioned above ER course: Per ER team, patient noted to be tachypneic, tachycardic, hypoxic; placed on supplemental oxygen; blood gas appears compensated. Chest x-ray showed possible pneumonia. Given antibiotics. Given nebulizations and steroids. Not in respiratory distress. Acute and chronic hypoxic respiratory failure Infective COPD exacerbation with pneumonia Cor pulmonale on home O2 Significant improvement to admission. Placed on ceftriaxone and azithromycin for pneumonia Continue scheduled and PRN nebulizations Supplemental oxygen as needed Continue IV methylprednisolone Transitioned to p.o. prednisone, with slow taper Transitioned to oral antibiotics. Status at Discharge Cognitive/behavioral status at discharge: Oriented to person place time Functional status at discharge: independent ambulation Overall status at discharge: patient is back to baseline Time Attestation Total time managing care of this patient today: 45 mintues. Discharge Coordination Time (in mins): 35 Quality: Safe Use of Opioids Does Pt have an Active Cancer Diagnosis on the Problem List?: No Quality: Stroke Does the patient have a stroke diagnosis?: No Physical Exam Exam: Exam: General: A&O x3, oriented to time place person and situation, comfortable, no pain, frail Cardiac: S1, S2 auscultated with no S3/4, no MRG. Well perfused. Respiratory: reduced breath sounds in all lung zones, with end expiratory wheezing and inspiratory wheezing in the upper airways bilaterally; congested sounds, no peripheral or central cyanosis. No Accessory muscles of respiration in use - on home O2 currently GI/ : No abdominal pain on palpation, no masses or distentions. MSK: Normal ambulation without pain at bony prominences or musculature Neurological: Normal neurological examination on overview, without obvious CN II-XII abnormalities. Vital Signs: Vital Signs: Last Vital Signs Temp 97.6 F 08/13/25 07:46 Pulse 115 H 08/13/25 08:17 Resp 19 08/13/25 08:17 BP 158/75 H 08/13/25 08:56 Pulse Ox 91 L 08/13/25 07:46 O2 Del Method Oxymask 08/13/25 07:46 O2 Flow Rate 6 08/13/25 07:46 BMI result Body Mass Index 26.9 Discharge Plan Discharge Anticipated Discharge Date/Time: 08/13/25 10:52 Patient Disposition: Home Health Service Discharge Diagnosis: Acute multifactorial hypoxic respiratory failure Referrals: Lonny Bentley MD [Primary Care Provider, [facility]] - 1 Week Discharge Medications: New amoxicillin-pot clavulanate [Augmentin] 500-125 mg tablet 1 tab PO BID 7 Days Qty: 14 0RF benzonatate 100 mg Capsule 100 mg PO TID 7 Days Qty: 21 0RF doxycycline hyclate 100 mg tablet 100 mg PO BID Qty: 14 0RF prednisone 20 mg tablet 60 mg PO DAILY 13 Days Qty: 22 0RF Rx Instructions: 60 mg Daily x3 days, 40 mg daily x3 days, 20 mg daily x3 days, 10 mg daily x4 days Continued Breztri Aerosphere 160-9-4.8 mcg/actuation HFA aerosol inhaler 2 inh inhalation BID Qty: 3 0RF morphine 15 mg Tablet Extended Release 15 mg PO BID oxycodone 10 mg Tablet 10 mg PO QID PRN (Reason: Pain, Moderate) hydroxyzine HCl 25 mg tablet 25 mg PO TID PRN (Reason: Anxiety) fluticasone propionate 50 mcg/actuation spray,suspension 2 spray intranasal BEDTIME escitalopram oxalate 10 mg tablet 10 mg PO DAILY potassium chloride 20 mEq tablet extended release 20 meq PO DAILY ipratropium-albuterol 0.5 mg-3 mg(2.5 mg base)/3 mL solution for nebulization 3 ml INHALATION TID hydrochlorothiazide 25 mg Tablet 25 mg PO DAILY multivitamin Tablet 1 tab PO DAILY ibuprofen 800 mg Tablet 800 mg PO TID PRN (Reason: Pain) naloxone 0.4 mg/mL Solution 0.4 mg SUBCUT Q3M PRN (Reason: overdose) Rx Instructions: NTExceed 10 mg total dose/episode alendronate 70 mg Tablet 70 mg PO MO@0900 Rx Instructions: on mondays amlodipine 10 mg Tablet 10 mg PO DAILY docusate sodium 100 mg Capsule 100 mg PO DAILY albuterol sulfate 90 mcg/actuation HFA aerosol inhaler 2 puff inhalation Q4H PRN (Reason: shortness of breath or wheezing) roflumilast [Daliresp] 500 mcg tablet 500 mcg PO DAILY Qty: 90 2RF prednisone 10 mg tablet 10 mg PO DIRECTED Qty: 50 0RF Patient Comments: Patient states they are currently on Day 2 of the 4 pills for 5 days portion of their regimen. Rx Instructions: Take 4 pills daily for 5 days, then go down by 1 pill every 5 days; 20 days 50 tabs 0RF Discontinued cefpodoxime 200 mg tablet 200 mg PO BID Qty: 20 0RF Rx Instructions: must administer with a meal/food Discharge Orders: Discharge Order (Routine); Ordered 08/13/25 Ordered By: Sundar Lynne Diet: Advance to usual diet Activity on Discharge: As tolerated Stand Alone Forms: Patient Portal Discharge page Print Language: Kyrgyz Care Plan Goals: As above Health Concerns: As above Plan of Treatment: Follow up with PCP within 1 week of discharge Follow up with pulmonology within 1 week of discharge Assessment: Hemodynamically stable for discharge home with home services
--- NOTE | 2025-08-13 10:58 | W.MHC.F2F ---
Service Date Service Date: 08/13/25 Encounter Date of encounter: 08/13/25 Reasons for Services Signs and symptoms assessed: Elderly, frail, home O2 Generalized muscular atrophy Reason for penitentiary: medication treatment and teach disease management Reason for physical therapy: home safety and mobility, therapeutic exercises, restore joint function, gait/transfer training, assess need for DME and ADL training Reason for occupational therapy: home safety and mobility, therapeutic exercises, restore joint function, gait/transfer training, assess need for DME and ADL training Homebound: Leaving the home is medically contraindicated at this time without the asist of a device and/or another person due th the listed conditions above and below. Reason homebound: unsteady gait / fall risk, leg weakness, poor balance / fall risk, shortness of breath at rest and weakness related to hospital stay Certification: Based on the above findings, I certify that this patient is confined to the home and needs intermittent penitentiary care, physical therapy and/or speech therapy, or continues to need occupational therapy. The patient is under my care, and I have initiated the establishment of the plan of care. The patient will be followed by a physician who will periodically review the plan of care. Time Spent With Patient Time: Total time managing care of this patient today 35 minutes.
--- NOTE | 2025-08-13 11:12 | MHC.CM.PN ---
IMM addressed with Patient. Patient has been medically cleared for dc to home today with services. A referral was made to [facility](Patient aware and agreeable),who is aware of today's dc.
== END 2025-08-13 11:53 | disposition home health service (06) | DRG 193 ==
LOC: HO.ED 08-08 00:40 → HO.EDOVER 08-08 00:46 → HO.IMC 08-08 12:24
PROVIDERS: Internal Medicine; Admitting Provider Hospitalist; Emergency Provider Emergency Medicine Emergency Medical Services; PCP Family Medicine; Visit Provider Hospitalist
DX: J18.9 Pneumonia, unspecified organism (principal); J44.0 Chronic obstructive pulmonary disease with (acute) lower respiratory infection; J96.21 Acute and chronic respiratory failure with hypoxia; J45.901 Unspecified asthma with (acute) exacerbation; J44.1 Chronic obstructive pulmonary disease with (acute) exacerbation; I10 Essential (primary) hypertension; F39 Unspecified mood [affective] disorder; E87.6 Hypokalemia; I27.81 Cor pulmonale (chronic); Z20.822 Contact with and (suspected) exposure to COVID-19; Z87.01 Personal history of pneumonia (recurrent); Z87.891 Personal history of nicotine dependence; Z79.51 Long term (current) use of inhaled steroids; Z79.899 Other long term (current) drug therapy
CPT/HCPCS: 36415; 71045; 80048; 80053; 82803; 83605; 83880; 84145; 84484; 85025; 85027; 85379; 87040; 87637; 93005; 94640; 99212; 99285; J0692; J0696; J1171; J1650; J2919; J3475

== ENCOUNTER → 2025-08-07 20:53 | Outpatient (BNV) | payer MEDICARE, OTHER, SELFPAY | PROVIDERS: Admitting Provider Hospitalist; Emergency Provider Emergency Medicine Emergency Medical Services; PCP Family Medicine; Visit Provider Internal Medicine | DX: R00.0 Tachycardia, unspecified (principal) | CPT/HCPCS: 93010 ==

== ENCOUNTER → 2025-08-07 22:30 | Outpatient (BNV) | payer MEDICARE, OTHER, SELFPAY | PROVIDERS: Emergency Provider Emergency Medicine Emergency Medical Services; PCP Family Medicine; Visit Provider Student in an Organized Health Care Education/Training Program | DX: J43.9 Emphysema, unspecified (principal); R91.8 Other nonspecific abnormal finding of lung field | CPT/HCPCS: 71045 ==

== ENCOUNTER → 2025-08-08 00:41 | Outpatient (BNV) | payer MEDICARE, OTHER, SELFPAY | PROVIDERS: Admitting Provider Hospitalist; Emergency Provider Emergency Medicine Emergency Medical Services; PCP Family Medicine; Visit Provider Hospitalist | DX: J96.21 Acute and chronic respiratory failure with hypoxia (principal); J44.1 Chronic obstructive pulmonary disease with (acute) exacerbation; J45.901 Unspecified asthma with (acute) exacerbation | CPT/HCPCS: 99222; 99232; 99499 ==